=== PATIENT | male | born 1955 ===

== ENCOUNTER 2017-07-18 03:45 | Inpatient (IN) | payer MEDICAID ==
[2017-07-18] MEDS ORDERED: Sodium Chloride 0.9% 1,000 ML IV STA (04:07)
[2017-07-18 04:28] LABS: BASO % 1.6 % (0.0-2.0); EOS % 1.2 % (0.0-4.0); HEMOGLOBIN 8.7 g/dL (12.0-18.0); LYMPH # 0.5 K/uL (1.0-4.3); LYMPH % 32.4 % (20.0-40.0); MEAN CELL VOLUME 87.6 fL (80.0-94.0); MEAN CORPUSCULAR HEMOGLOBIN 30.5 pg (27.0-31.0); MEAN CORPUSCULAR HGB CONC 34.8 g/dL (33.0-37.0); MEAN PLATELET VOLUME 8.2 fL (7.2-11.7); MONO % 1.9 % (0.0-10.0); NEUT # 0.9 K/uL (1.8-7.0); NEUT % 62.9 % (50.0-75.0); NRBC % 0.2 % (0.0-2.0); RBC 2.86 Mil/uL (4.40-5.90); RED CELL DISTRIBUTION WIDTH 15.8 % (11.5-14.5)
[2017-07-18] MEDS ORDERED: Sodium Chloride 0.9% 1,000 ML ONE (04:28)
[2017-07-18] MEDS ORDERED: Morphine 4 MG/ML VIAL ONE ×2 (04:30→08:55)
[2017-07-18 04:33] LABS: WHITE BLOOD COUNT 1.4 K/uL (4.8-10.8)
[2017-07-18 04:36] LABS: INR 1.3; PROTHROMBIN TIME 13.7 SECONDS (9.7-12.2)
[2017-07-18 04:39] LABS: ALB/GLOB RATIO 1.1 (1.0-2.1); ALBUMIN 3.8 g/dL (3.5-5.0); ALT/SGPT 19 U/L (21-72); AST/SGOT 29 U/L (17-59); BLOOD UREA NITROGEN 12 mg/dL (9-20); CALCIUM 7.1 mg/dl (8.6-10.4); GFR AFRICAN-AMERICAN > 60; GFR NON-AFRICAN AMERICAN > 60; LIPASE 147 U/L (23-300)
--- NOTE | 2017-07-18 05:16 | C.PDOC ---
History Of Present Illness 61yo male, with history of metastatic prostate cancer, presents to the ED with complaints of suprapubic pain since last night. Patient follows up with Dr. Recinos and currently is on chemotherapy and radiation. Patient is on a Dilaudid regiment at home and states recently, he \\hs not had any relief of pain with dilaudid use. He denies any associated fever, chills, chest pain, shortness of breath and offers no other medical complaints. PMD: Dr. Recinos Time Seen by Provider: 07/18/17 04:00 Chief Complaint (Nursing): Abdominal Pain History Per: Patient History/Exam Limitations: no limitations Onset/Duration Of Symptoms: Days (1) Current Symptoms Are (Timing): Still Present Severity: Severe Location Of Pain/Discomfort: Suprapubic Quality Of Discomfort: "Pain" Associated Symptoms: denies: Fever, Chills, Nausea, Vomiting, Diarrhea, Chest Pain Additional History Per: Patient Past Medical History Reviewed: Historical Data, Nursing Documentation, Vital Signs Vital Signs: Last Vital Signs Temp 98.6 F 07/18/17 06:46 Pulse 73 07/18/17 06:46 Resp 20 07/18/17 06:46 BP 114/62 07/18/17 06:46 Pulse Ox 97 07/18/17 06:50 - Medical History PMH: Malignancy (metastatic prostate cancer) Surgical History: No Surg Hx Family History: States: No Known Family Hx - Social History Hx Tobacco Use: No Hx Alcohol Use: No Hx Substance Use: No - Immunization History Hx Tetanus Toxoid Vaccination: No Hx Influenza Vaccination: No Hx Pneumococcal Vaccination: No Review Of Systems Except As Marked, All Systems Reviewed And Found Negative. Constitutional: Negative for: Fever, Chills Cardiovascular: Negative for: Chest Pain Respiratory: Negative for: Shortness of Breath Gastrointestinal: Positive for: Abdominal Pain. Negative for: Nausea, Vomiting , Diarrhea Neurological: Negative for: Weakness Physical Exam - Physical Exam Appears: Non-toxic, Other (uncomfortable) Skin: Warm, Dry, Pale Head: Atraumatic, Normacephalic Eye(s): bilateral: Normal Inspection Neck: Normal ROM, Supple Chest: Symmetrical Cardiovascular: Rhythm Regular, No Murmur Respiratory: Normal Breath Sounds, No Wheezing Gastrointestinal/Abdominal: Soft, Tenderness (mild suprapubic tenderness) Extremity: Normal ROM Neurological/Psych: Oriented x3 ED Course And Treatment - Laboratory Results Result Diagrams: 07/18/17 04:25 07/18/17 04:25 O2 Sat by Pulse Oximetry: 97 (RA) Pulse Ox Interpretation: Normal - CT Scan/US CT Abdomen and Pelvis w/ IV Contrast Other Rad Studies (CT/US): Read By Radiologist, Radiology Report Reviewed CT/US Interpretation: EXAM: CT Abdomen and Pelvis With Intravenous Contrast. EXAM DATE/TIME: 07/18/2017 4:10 AM. CLINICAL HISTORY: 61 years old, male; Pain ; Abdominal pain; Additional info: Abd pain, h/o prosate cancer. TECHNIQUE: Axial computed tomography images of the abdomen and pelvis with intravenous contrast. All CT. scans at this facility use one or more dose reduction techniques, viz.: automated exposure control;. ma/kV adjustment per patient size (including targeted exams where dose is matched to indication; i.e. head) ; or iterative reconstruction technique. Coronal and sagittal reformatted images were created and reviewed. CONTRAST: 100 mL of [id number] administered intravenously. COMPARISON: No relevant prior studies available. FINDINGS: There are tiny scattered punctate nodules within the lungs all of which measure less than 4. mm.Follow up based on Chrisotpher criteria. There are lobulated soft tissue masses extending along the left aortic border without intervening fat. plane identified. I suspect metastatic lymphadenopathy given history of prostate cancer. The. lymphadenopathy measures 4 x 4.5 cm in maximal axial dimensions on image 74. Soft tissue. surrounds the left renal artery. There are numerous enlarged lymph nodes between the aorta and. IVC. The liver, spleen, pancreas, kidneys, gallbladder are normal. Sigmoid diverticulosis. A normal appendix is identified series 3 axial images 96 - 113. There are innumerable blastic lesions throughout the entire vertebral column as well the pelvic. bones and multiple ribs. Findings consistent with metastatic disease in the patient's known prostate. cancer. There is air within the musculature of the left buttock that I suspect is secondary to injection. Clinical. correlation recommended. I see no signs to suggest infectious etiology. IMPRESSION: Extensive metastatic disease to the osseous structures presumably from the patient's known prostate. cancer. Extensive periaortic lymphadenopathy as described above presumably also representing metastatic. disease from the patient's reported prostate cancer. Without prior studies, I cannot determine whether this represents new or chronic findings. Progress Note: Labs, IV Fluids, morphine and zofran ODT ordered. 0425 Labs reviewed, and significant for leukopenia and anemia. 0649 CT results reviewed. Call placed to Dr. Recinos, and currently pending call back. Disposition - Disposition Disposition Time: 07:02 Condition: FAIR Forms: [facility] (Georgian) - Clinical Impression Clinical Impression: Abdominal pain - PA / NETWORK RELATIONS CONSULTANT / Resident Statement MD/DO has reviewed & agrees with the documentation as recorded. - Scribe Statement The provider has reviewed the documentation as recorded by the Scribe (Luba Gates) Provider Attestation: All medical record entries made by the Scribe were at my direction and personally dictated by me. I have reviewed the chart and agree that the record accurately reflects my personal performance of the history, physical exam, medical decision making, and the department course for this patient. I have also personally directed, reviewed, and agree with the discharge instructions and disposition. Physician Patient Turnover Patient Signed Over To: Christine Gibson Handoff Comments: Pending dispo, call back and dispo
[2017-07-18] MEDS ORDERED: Iodixanol 320 mg/ml 150 ml Bottle IV ONE (05:29)
--- NOTE | 2017-07-18 06:40 | CT ---
EXAM: CT Abdomen and Pelvis With Intravenous Contrast EXAM DATE/TIME: 07/18/2017 4:10 AM CLINICAL HISTORY: 61 years old, male; Pain; Abdominal pain; Additional info: Abd pain, h/o prosate cancer TECHNIQUE: Axial computed tomography images of the abdomen and pelvis with intravenous contrast. All CT scans at this facility use one or more dose reduction techniques, viz.: automated exposure control; ma/kV adjustment per patient size (including targeted exams where dose is matched to indication; i.e. head); or iterative reconstruction technique. Coronal and sagittal reformatted images were created and reviewed. CONTRAST: 100 mL of administered intravenously. COMPARISON: No relevant prior studies available. FINDINGS: There are tiny scattered punctate nodules within the lungs all of which measure less than 4 mm.Follow up based on Christopher criteria. There are lobulated soft tissue masses extending along the left aortic border without intervening fat plane identified. I suspect metastatic lymphadenopathy given history of prostate cancer. The lymphadenopathy measures 4 x 4.5 cm in maximal axial dimensions on image 74. Soft tissue surrounds the left renal artery. There are numerous enlarged lymph nodes between the aorta and IVC. The liver, spleen, pancreas, kidneys, gallbladder are normal. Sigmoid diverticulosis. A normal appendix is identified series 3 axial images 96 - 113. There are innumerable blastic lesions throughout the entire vertebral column as well the pelvic bones and multiple ribs. Findings consistent with metastatic disease in the patient's known prostate cancer. There is air within the musculature of the left buttock that I suspect is secondary to injection. Clinical correlation recommended. I see no signs to suggest infectious etiology. IMPRESSION: Extensive metastatic disease to the osseous structures presumably from the patient's known prostate cancer. Extensive periaortic lymphadenopathy as described above presumably also representing metastatic disease from the patient's reported prostate cancer. Without prior studies, I cannot determine whether this represents new or chronic findings.
[2017-07-18 06:55] LABS: URINE BILIRUBIN NEGATIVE (NEGATIVE); URINE BLOOD NEGATIVE (NEGATIVE); URINE CLARITY Clear (Clear); URINE COLOR Straw (YELLOW); URINE GLUCOSE (UA) NORMAL (Normal); URINE LEUKOCYTE ESTERASE NEG Leu/uL (Negative); URINE PROTEIN NEGATIVE (NEGATIVE); URINE UROBILINOGEN NORMAL mg/dL (0.2-1.0)
[2017-07-18] MEDS: Sodium Chloride 0.9% 1,000 ML IV SCH ×2 (09:01→18:34)
--- NOTE | 2017-07-18 15:44 | CP.PCM.HP ---
Past Patient History - Past Social History Smoking Status: Never Smoked - GENITOURINARY/GYNECOLOGICAL Hx Prostate Cancer: Yes - PSYCHIATRIC Hx Substance Use: No Meds Allergies/Adverse Reactions: Allergies Allergy/AdvReac Type Severity Reaction Status Date / Time No Known Allergies Allergy Unverified 07/18/17 03:58 Physical Exam - Constitutional Appears: Well - Head Exam Head Exam: ATRAUMATIC, NORMAL INSPECTION, NORMOCEPHALIC - Eye Exam Eye Exam: EOMI, Normal appearance, PERRL Pupil Exam: NORMAL ACCOMODATION, PERRL - ENT Exam ENT Exam: Mucous Membranes Moist, Normal Exam - Neck Exam Neck exam: Positive for: Normal Inspection - Respiratory Exam Respiratory Exam: Decreased Breath Sounds - Cardiovascular Exam Cardiovascular Exam: REGULAR RHYTHM, +S1, +S2 - GI/Abdominal Exam GI & Abdominal Exam: Diminished Bowel Sounds, Soft - Rectal Exam Rectal Exam: Deferred Results - Vital Signs Recent Vital Signs: Last Vital Signs Temp 98.6 F 07/18/17 06:46 Pulse 81 07/18/17 13:51 Resp 16 07/18/17 13:51 BP 133/67 07/18/17 13:51 Pulse Ox 99 07/18/17 13:51 - Labs Result Diagrams: 07/18/17 04:25 07/18/17 04:25 Labs: Laboratory Results - last 24 hr 07/18/17 07/18/17 07/18/17 04:25 04:25 04:25 WBC 1.4 L* D RBC 2.86 L Hgb 8.7 L D Hct 25.1 L MCV 87.6 D MCH 30.5 MCHC 34.8 RDW 15.8 H Plt Count 75 L D MPV 8.2 Neut % (Auto) 62.9 Lymph % (Auto) 32.4 [place] % (Auto) 1.9 Eos % (Auto) 1.2 Baso % (Auto) 1.6 Neut # (Auto) 0.9 L Lymph # (Auto) 0.5 L [place] # (Auto) 0.0 Eos # (Auto) 0.0 Baso # (Auto) 0.0 PT 13.7 H INR 1.3 APTT 28 Sodium 134 Potassium 4.1 Chloride 102 Carbon Dioxide 20 L Anion Gap 16 BUN 12 Creatinine 0.6 L Est GFR ( Amer) > 60 Est GFR (Non-Af Amer) > 60 Random Glucose 107 Calcium 7.1 L Total Bilirubin 1.0 AST 29 ALT 19 L D Alkaline Phosphatase 402 H Total Protein 7.2 Albumin 3.8 Globulin 3.3 Albumin/Globulin Ratio 1.1 Lipase 147 Urine Color Urine Clarity Urine pH Ur Specific [place] Urine Protein Urine Glucose (UA) Urine Ketones Urine Blood Urine Nitrate Urine Bilirubin Urine Urobilinogen Ur Leukocyte Esterase Urine RBC (Auto) 07/18/17 06:50 WBC RBC Hgb Hct MCV MCH MCHC RDW Plt Count MPV Neut % (Auto) Lymph % (Auto) [place] % (Auto) Eos % (Auto) Baso % (Auto) Neut # (Auto) Lymph # (Auto) [place] # (Auto) Eos # (Auto) Baso # (Auto) PT INR APTT Sodium Potassium Chloride Carbon Dioxide Anion Gap BUN Creatinine Est GFR ( Amer) Est GFR (Non-Af Amer) Random Glucose Calcium Total Bilirubin AST ALT Alkaline Phosphatase Total Protein Albumin Globulin Albumin/Globulin Ratio Lipase Urine Color Straw Urine Clarity Clear Urine pH 6.0 Ur Specific [place] 1.023 Urine Protein Negative Urine Glucose (UA) Normal Urine Ketones Negative Urine Blood Negative Urine Nitrate Negative Urine Bilirubin Negative Urine Urobilinogen Normal Ur Leukocyte Esterase Neg Urine RBC (Auto) < 1
[2017-07-18] MEDS ORDERED: Patient's Own Medication - Tablet/Capusle PO SCH (18:00)
[2017-07-18] MEDS: Sucralfate 1 gm/10 ml Oral Susp UD PO SCH ×2 (18:27→21:01)
[2017-07-18] MEDS: Ciprofloxacin 400mg/200ml D5W 400 MG/200 ML BAG IVPB SCH (18:28)
[2017-07-18] MEDS: Morphine 4 MG/ML VIAL IVP PRN (21:00)
[2017-07-18] MEDS: Docusate-Senna 50 mg-8.6 mg Tab PO SCH (21:01)
--- NOTE | 2017-07-18 23:28 | CP.PCM.CON ---
History of Present Illness - History of Present Illness History of Present Illness: 61 year old male with a history of stage IV prostate cancer with lymph node and metastasis on radiation and total androgen deprivation admitted with abdominal pain and pancytopenia. The patient has been on total androgen deprivation therapy and palliative radiotherapy to the bone. He notes to improvement in his bone pain but has been experiencing more abdominal pain since starting radiation. He denies fevers and chills. He has no abnormal bleeding and bruising. Past medical history: Stage IV prostate cancer Past surgical history: None Family history: Denies hematologic and oncologic problems Social history: Social alcohol. Allergies: NKA Review of systems: All remaining review of systems including HEENT, cardiovascular, respiratory, gastrointestinal, genitourinary, musculoskeletal, dermatologic, neurologic, and psychiatric are negative unless mentioned in the HPI. Past Patient History - Past Social History Smoking Status: Never Smoked - MUSCULOSKELETAL/RHEUMATOLOGICAL Hx Falls: No - GENITOURINARY/GYNECOLOGICAL Hx Prostate Cancer: Yes - PSYCHIATRIC Hx Substance Use: No Meds Allergies/Adverse Reactions: Allergies Allergy/AdvReac Type Severity Reaction Status Date / Time No Known Allergies Allergy Unverified 07/18/17 03:58 - Medications Medications: Current Medications Home Med (Patient's Own Medication) 1 tab PO BID [facility] Sodium Chloride (Sodium Chloride 0.9%) 1,000 mls @ 100 mls/hr IV .Q10H [facility] Last Admin: 07/18/17 18:34 Dose: Not Given Ciprofloxacin (Cipro 400mg/200ml Dsw) 400 mg in 200 mls @ 133 mls/hr IVPB Q12H RENAN PRN Reason: Protocol Last Admin: 07/18/17 18:28 Dose: 133 mls/hr Morphine Sulfate (Morphine) 4 mg IVP Q6 PRN PRN Reason: Pain, moderate (4-7) Last Admin: 07/18/17 21:00 Dose: 4 mg Pantoprazole Sodium (Protonix Ec Tab) 40 mg PO DAILY [facility] Senna/Docusate Sodium (Senokot S 50 Mg-8.6 Mg) 2 tab PO HS [facility] Last Admin: 07/18/17 21:01 Dose: 2 tab Sucralfate (Carafate Oral Susp) 1 gm PO QID [facility] Last Admin: 07/18/17 21:01 Dose: 1 gm Physical Exam - Head Exam Head Exam: ATRAUMATIC - Eye Exam Eye Exam: Normal appearance - ENT Exam ENT Exam: Mucous Membranes Dry - Respiratory Exam Respiratory Exam: NORMAL BREATHING PATTERN - Cardiovascular Exam Cardiovascular Exam: +S1, +S2 - GI/Abdominal Exam GI & Abdominal Exam: Normal Bowel Sounds - Extremities Exam Extremities exam: Positive for: normal inspection - Neurological Exam Neurological exam: Oriented x3 - Psychiatric Exam Psychiatric exam: Normal Affect, Normal Mood - Skin Skin Exam: Warm Results - Vital Signs Recent Vital Signs: Last Vital Signs Temp 97.8 F 07/18/17 16:15 Pulse 79 07/18/17 16:15 Resp 20 07/18/17 16:15 BP 130/76 07/18/17 16:15 Pulse Ox 99 07/18/17 16:15 - Labs Result Diagrams: 07/19/17 08:39 07/18/17 04:25 Labs: Laboratory Results - last 24 hr 07/18/17 07/18/17 07/18/17 04:25 04:25 04:25 WBC 1.4 L* D RBC 2.86 L Hgb 8.7 L D Hct 25.1 L MCV 87.6 D MCH 30.5 MCHC 34.8 RDW 15.8 H Plt Count 75 L D MPV 8.2 Neut % (Auto) 62.9 Lymph % (Auto) 32.4 [place] % (Auto) 1.9 Eos % (Auto) 1.2 Baso % (Auto) 1.6 Neut # (Auto) 0.9 L Lymph # (Auto) 0.5 L [place] # (Auto) 0.0 Eos # (Auto) 0.0 Baso # (Auto) 0.0 PT 13.7 H INR 1.3 APTT 28 Sodium 134 Potassium 4.1 Chloride 102 Carbon Dioxide 20 L Anion Gap 16 BUN 12 Creatinine 0.6 L Est GFR ( Amer) > 60 Est GFR (Non-Af Amer) > 60 Random Glucose 107 Calcium 7.1 L Total Bilirubin 1.0 AST 29 ALT 19 L D Alkaline Phosphatase 402 H Total Protein 7.2 Albumin 3.8 Globulin 3.3 Albumin/Globulin Ratio 1.1 Lipase 147 Urine Color Urine Clarity Urine pH Ur Specific [place] Urine Protein Urine Glucose (UA) Urine Ketones Urine Blood Urine Nitrate Urine Bilirubin Urine Urobilinogen Ur Leukocyte Esterase Urine RBC (Auto) 07/18/17 06:50 WBC RBC Hgb Hct MCV MCH MCHC RDW Plt Count MPV Neut % (Auto) Lymph % (Auto) [place] % (Auto) Eos % (Auto) Baso % (Auto) Neut # (Auto) Lymph # (Auto) [place] # (Auto) Eos # (Auto) Baso # (Auto) PT INR APTT Sodium Potassium Chloride Carbon Dioxide Anion Gap BUN Creatinine Est GFR ( Amer) Est GFR (Non-Af Amer) Random Glucose Calcium Total Bilirubin AST ALT Alkaline Phosphatase Total Protein Albumin Globulin Albumin/Globulin Ratio Lipase Urine Color Straw Urine Clarity Clear Urine pH 6.0 Ur Specific [place] 1.023 Urine Protein Negative Urine Glucose (UA) Normal Urine Ketones Negative Urine Blood Negative Urine Nitrate Negative Urine Bilirubin Negative Urine Urobilinogen Normal Ur Leukocyte Esterase Neg Urine RBC (Auto) < 1 Assessment & Plan (1) Pancytopenia Assessment and Plan: multifactorial bone metastasis, radiation treatment mild neutropenia, no growth factor and transfusion indication at this time. Status: Acute (2) Prostate cancer Assessment and Plan: bone and lymph node metastasis on androgen deprivation therapy and palliative radiotherapy outpatient treatment Thank you for this interesting consult. Status: Acute
[2017-07-19] MEDS: Sodium Chloride 0.9% 1,000 ML IV SCH ×3 (02:08→14:00)
[2017-07-19] MEDS: Morphine 4 MG/ML VIAL IVP PRN (02:19)
[2017-07-19] MEDS: Ciprofloxacin 400mg/200ml D5W 400 MG/200 ML BAG IVPB SCH ×2 (06:27→18:46)
[2017-07-19 08:45] LABS: EOS % 1.7 % (0.0-4.0); HEMOGLOBIN 9.2 g/dL (12.0-18.0); LYMPH # 0.4 K/uL (1.0-4.3); LYMPH % 33.3 % (20.0-40.0); MEAN CELL VOLUME 87.2 fL (80.0-94.0); MEAN CORPUSCULAR HEMOGLOBIN 30.6 pg (27.0-31.0); MEAN CORPUSCULAR HGB CONC 35.1 g/dL (33.0-37.0); MEAN PLATELET VOLUME 8.1 fL (7.2-11.7); MONO % 1.4 % (0.0-10.0); NEUT # 0.8 K/uL (1.8-7.0); NEUT % 62.6 % (50.0-75.0); NRBC % 0.1 % (0.0-2.0); RBC 2.99 Mil/uL (4.40-5.90); RED CELL DISTRIBUTION WIDTH 15.7 % (11.5-14.5)
[2017-07-19 08:54] LABS: WHITE BLOOD COUNT 1.2 K/uL (4.8-10.8)
[2017-07-19] MEDS: Pantoprazole 40 mg EC Tab PO SCH (10:08)
[2017-07-19] MEDS: Sucralfate 1 gm/10 ml Oral Susp UD PO SCH ×4 (10:08→21:57)
[2017-07-19] MEDS ORDERED: HYDROmorphone 0.5 mg/0.5 ml ISec IVP STA (11:22)
[2017-07-19] MEDS ORDERED: HYDROmorphone 0.5 mg/0.5 ml ISec IVP PRN (12:48)
[2017-07-19] MEDS: HYDROmorphone 1 mg/ml ISec IVP PRN ×3 (14:34→23:01)
--- NOTE | 2017-07-19 18:09 | CP.PCM.PN ---
Subjective - Date & Time of Evaluation Date of Evaluation: 07/19/17 Time of Evaluation: 09:40 - Subjective Subjective: clinically same Objective - Vital Signs/Intake and Output Vital Signs (last 24 hours): Temp Pulse Resp BP Pulse Ox 98.1 F 76 20 129/77 97 07/19/17 15:53 07/19/17 15:53 07/19/17 15:53 07/19/17 15:53 07/19/17 15:53 Intake and Output: 07/19/17 07/19/17 06:59 18:59 Intake Total 760 Balance 760 - Medications Medications: Current Medications Home Med (Patient's Own Medication) 1 tab PO BID [facility] Hydromorphone HCl (Dilaudid) 2 mg IVP Q3 PRN PRN Reason: Pain, severe (8-10) Last Admin: 07/19/17 14:34 Dose: 2 mg Sodium Chloride (Sodium Chloride 0.9%) 1,000 mls @ 100 mls/hr IV .Q10H [facility] Last Admin: 07/19/17 14:00 Dose: 100 mls/hr Ciprofloxacin (Cipro 400mg/200ml Dsw) 400 mg in 200 mls @ 133 mls/hr IVPB Q12H RENAN PRN Reason: Protocol Last Admin: 07/19/17 06:27 Dose: 133 mls/hr Pantoprazole Sodium (Protonix Ec Tab) 40 mg PO DAILY [facility] Last Admin: 07/19/17 10:08 Dose: 40 mg Senna/Docusate Sodium (Senokot S 50 Mg-8.6 Mg) 2 tab PO HS [facility] Last Admin: 07/18/17 21:01 Dose: 2 tab Sucralfate (Carafate Oral Susp) 1 gm PO QID [facility] Last Admin: 07/19/17 13:50 Dose: 1 gm - Labs Labs: 07/19/17 08:39 07/18/17 04:25 PT 13.7 SECONDS (9.7-12.2) H 07/18/17 04:25 INR 1.3 07/18/17 04:25 APTT 28 SECONDS (21-34) 07/18/17 04:25 - Constitutional Appears: Well - Head Exam Head Exam: ATRAUMATIC, NORMAL INSPECTION, NORMOCEPHALIC - Eye Exam Eye Exam: EOMI, Normal appearance, PERRL Pupil Exam: NORMAL ACCOMODATION, PERRL - ENT Exam ENT Exam: Mucous Membranes Moist, Normal Exam - Neck Exam Neck Exam: Full ROM, Normal Inspection. absent: Lymphadenopathy - Respiratory Exam Respiratory Exam: Decreased Breath Sounds - Cardiovascular Exam Cardiovascular Exam: REGULAR RHYTHM, +S1, +S2 - GI/Abdominal Exam GI & Abdominal Exam: Soft, Diminished Bowel Sounds - Rectal Exam Rectal Exam: Deferred Assessment and Plan - Assessment and Plan (Free Text) Plan: IV dilaudid Spoke to the daughter at length urology consultations Pain medicine As ordered
[2017-07-19] MEDS: Docusate-Senna 50 mg-8.6 mg Tab PO SCH (21:57)
[2017-07-20] MEDS: Sodium Chloride 0.9% 1,000 ML IV SCH ×4 (01:29→21:18)
[2017-07-20] MEDS: HYDROmorphone 1 mg/ml ISec IVP PRN ×7 (02:56→22:07)
[2017-07-20] MEDS: Ciprofloxacin 400mg/200ml D5W 400 MG/200 ML BAG IVPB SCH ×2 (06:35→17:09)
--- NOTE | 2017-07-20 07:25 | PCM.URO ---
Urology Progress Note - Objective Lab Studies: Reviewed (gu dx: cap gu plans : to be discussed full note to be dictated thanks for gu consult) Lab Results Last 24 Hours: Laboratory Results - last 24 hr 07/19/17 07/19/17 07/19/17 08:39 08:39 08:39 WBC 1.2 L* RBC 2.99 L Hgb 9.2 L Hct 26.1 L MCV 87.2 MCH 30.6 MCHC 35.1 RDW 15.7 H Plt Count 87 L MPV 8.1 Neut % (Auto) 62.6 Lymph % (Auto) 33.3 [place] % (Auto) 1.4 Eos % (Auto) 1.7 Baso % (Auto) 1.0 Neut # (Auto) 0.8 L Lymph # (Auto) 0.4 L [place] # (Auto) 0.0 Eos # (Auto) 0.0 Baso # (Auto) 0.0 Prostate Specific Ag 56.5 H Testosterone Level 16.6 Intake & Output: Intake & Output 07/19/17 07/20/17 07/20/17 18:59 06:59 18:59 Intake Total 760 Balance 760 Intake: Oral 760 Other: # Voids Urine, Voided 3 # Bowel Movements 0 Vital Signs: Vital Signs - 24 hr 07/19/17 07/20/17 15:53 00:35 Temperature 98.1 F 98.3 F Pulse Rate 76 77 Respiratory 20 20 Rate Blood Pressure 129/77 118/73 O2 Sat by Pulse 97 98 Oximetry
[2017-07-20] MEDS: Sucralfate 1 gm/10 ml Oral Susp UD PO SCH ×4 (09:40→21:15)
[2017-07-20] MEDS: Pantoprazole 40 mg EC Tab PO SCH (09:41)
--- NOTE | 2017-07-20 12:44 | CP.PCM.PN ---
Subjective - Date & Time of Evaluation Date of Evaluation: 07/19/17 Time of Evaluation: 17:00 - Subjective Subjective: Feeling better Objective - Vital Signs/Intake and Output Vital Signs (last 24 hours): Temp Pulse Resp BP Pulse Ox 98.7 F 73 20 125/78 97 07/20/17 08:00 07/20/17 08:00 07/20/17 08:00 07/20/17 08:00 07/20/17 08:00 - Medications Medications: Current Medications Home Med (Patient's Own Medication) 1 tab PO BID [facility] Hydromorphone HCl (Dilaudid) 2 mg IVP Q3 PRN PRN Reason: Pain, severe (8-10) Last Admin: 07/20/17 09:41 Dose: 2 mg Sodium Chloride (Sodium Chloride 0.9%) 1,000 mls @ 100 mls/hr IV .Q10H [facility] Last Admin: 07/20/17 01:29 Dose: 100 mls/hr Ciprofloxacin (Cipro 400mg/200ml Dsw) 400 mg in 200 mls @ 133 mls/hr IVPB Q12H RENAN PRN Reason: Protocol Last Admin: 07/20/17 06:35 Dose: 133 mls/hr Pantoprazole Sodium (Protonix Ec Tab) 40 mg PO DAILY [facility] Last Admin: 07/20/17 09:41 Dose: 40 mg Senna/Docusate Sodium (Senokot S 50 Mg-8.6 Mg) 2 tab PO HS [facility] Last Admin: 07/19/17 21:57 Dose: 2 tab Sucralfate (Carafate Oral Susp) 1 gm PO QID [facility] Last Admin: 07/20/17 09:40 Dose: 1 gm - Labs Labs: 07/19/17 08:39 07/18/17 04:25 PT 13.7 SECONDS (9.7-12.2) H 07/18/17 04:25 INR 1.3 07/18/17 04:25 APTT 28 SECONDS (21-34) 07/18/17 04:25 - Head Exam Head Exam: ATRAUMATIC - Eye Exam Eye Exam: Normal appearance - ENT Exam ENT Exam: Mucous Membranes Dry - Respiratory Exam Respiratory Exam: NORMAL BREATHING PATTERN - Cardiovascular Exam Cardiovascular Exam: +S1, +S2 - GI/Abdominal Exam GI & Abdominal Exam: Normal Bowel Sounds Assessment and Plan (1) Pancytopenia Assessment & Plan: secondary to bone metastasis and radiation no growth factor and transfusion indication Status: Acute (2) Prostate cancer Assessment & Plan: bone and lymph node metastasis on androgen deprivation and palliative radiotherapy outpatient treatment Status: Acute
--- NOTE | 2017-07-20 13:51 | CP.PCM.PN ---
Subjective - Date & Time of Evaluation Date of Evaluation: 07/20/17 Time of Evaluation: 09:40 - Subjective Subjective: clinically same Objective - Vital Signs/Intake and Output Vital Signs (last 24 hours): Temp Pulse Resp BP Pulse Ox 98.7 F 73 20 125/78 97 07/20/17 08:00 07/20/17 08:00 07/20/17 08:00 07/20/17 08:00 07/20/17 08:00 - Medications Medications: Current Medications Home Med (Patient's Own Medication) 1 tab PO BID [facility] Hydromorphone HCl (Dilaudid) 2 mg IVP Q3 PRN PRN Reason: Pain, severe (8-10) Last Admin: 07/20/17 12:44 Dose: 2 mg Sodium Chloride (Sodium Chloride 0.9%) 1,000 mls @ 100 mls/hr IV .Q10H [facility] Last Admin: 07/20/17 12:50 Dose: 100 mls/hr Ciprofloxacin (Cipro 400mg/200ml Dsw) 400 mg in 200 mls @ 133 mls/hr IVPB Q12H RENAN PRN Reason: Protocol Last Admin: 07/20/17 06:35 Dose: 133 mls/hr Pantoprazole Sodium (Protonix Ec Tab) 40 mg PO DAILY [facility] Last Admin: 07/20/17 09:41 Dose: 40 mg Senna/Docusate Sodium (Senokot S 50 Mg-8.6 Mg) 2 tab PO HS [facility] Last Admin: 07/19/17 21:57 Dose: 2 tab Sucralfate (Carafate Oral Susp) 1 gm PO QID [facility] Last Admin: 07/20/17 09:40 Dose: 1 gm - Labs Labs: 07/19/17 08:39 07/18/17 04:25 PT 13.7 SECONDS (9.7-12.2) H 07/18/17 04:25 INR 1.3 07/18/17 04:25 APTT 28 SECONDS (21-34) 07/18/17 04:25 - Constitutional Appears: Well - Head Exam Head Exam: ATRAUMATIC, NORMAL INSPECTION, NORMOCEPHALIC - Eye Exam Eye Exam: EOMI, Normal appearance, PERRL Pupil Exam: NORMAL ACCOMODATION, PERRL - ENT Exam ENT Exam: Mucous Membranes Moist, Normal Exam - Neck Exam Neck Exam: Full ROM, Normal Inspection. absent: Lymphadenopathy - Respiratory Exam Respiratory Exam: Decreased Breath Sounds - Cardiovascular Exam Cardiovascular Exam: REGULAR RHYTHM, +S1, +S2 - GI/Abdominal Exam GI & Abdominal Exam: Soft, Diminished Bowel Sounds - Rectal Exam Rectal Exam: Deferred Assessment and Plan - Assessment and Plan (Free Text) Plan: Status post urology WBC is very low 1.2 Follow-up with Dr. milner Follow-up with the urologist and Workup under progress IV Cipro Septic workup
[2017-07-20 14:04] LABS: URINE BILIRUBIN NEGATIVE (NEGATIVE); URINE BLOOD NEGATIVE (NEGATIVE); URINE CLARITY Clear (Clear); URINE COLOR Yellow (YELLOW); URINE GLUCOSE (UA) NORMAL (Normal); URINE LEUKOCYTE ESTERASE NEG Leu/uL (Negative); URINE PROTEIN NEGATIVE (NEGATIVE)
--- NOTE | 2017-07-20 19:32 | CON ---
DATE: 07/20/2017 REASON FOR CONSULTATION: Metastatic prostate cancer. Mr. Ramirez is a very pleasant young gentleman, 61 years old, who is in the hospital under the care of Dr. Michael Pavon and also being consulted with Dr. Recinos. He is felt to be neutropenic, his white count is noted. The patient was admitted with pain. He is pancytopenic actually if we look at his labs. See below. From urology standpoint, he is noted to have metastatic prostate cancer. Urology consulted for further recommendation. PAST MEDICAL AND SURGICAL HISTORY: As listed in the chart. REVIEW OF SYSTEMS: As listed above. PHYSICAL EXAMINATION: GENERAL: A well-nourished male in no apparent distress. VITAL SIGNS: As noted. LABORATORY DATA: The labs are noted. BUN and creatinine . The metastatic cancer on imaging noted. From urology standpoint, diagnoses is metastatic prostate cancer with multiple metastatic sites, with pain. From urology standpoint, the plan is as follows: I will defer to Dr. Recinos for further recommendations. We will discuss options from urology standpoint. Thank you for the urology consult. Girma Tolbert MD
[2017-07-20] MEDS: Docusate-Senna 50 mg-8.6 mg Tab PO SCH (21:16)
[2017-07-21] MEDS: HYDROmorphone 1 mg/ml ISec IVP PRN ×5 (02:10→19:51)
[2017-07-21] MEDS: Ciprofloxacin 400mg/200ml D5W 400 MG/200 ML BAG IVPB SCH ×2 (05:33→17:12)
[2017-07-21] MEDS: Sodium Chloride 0.9% 1,000 ML IV SCH (07:00)
[2017-07-21] MEDS: Enoxaparin 40 mg Syringe SC SCH ×2 (09:14→09:48)
[2017-07-21] MEDS: Sucralfate 1 gm/10 ml Oral Susp UD PO SCH ×4 (09:14→21:16)
[2017-07-21] MEDS: Pantoprazole 40 mg EC Tab PO SCH (09:14)
--- NOTE | 2017-07-21 10:28 | PCM.URO ---
Urology Progress Note - General General: Tolerating Diet - Subjective Abdominal Pain: Yes Flank Pain: No Voiding Well: Yes Hematuria: No Frequency: Yes Chest Pain: No Fever & Chills: No - Objective Lab Studies: Reviewed Lab Results Last 24 Hours: Laboratory Results - last 24 hr 07/20/17 13:48 Urine Color Yellow Urine Clarity Clear Urine pH 6.0 Ur Specific [place] 1.006 Urine Protein Negative Urine Glucose (UA) Normal Urine Ketones Negative Urine Blood Negative Urine Nitrate Negative Urine Bilirubin Negative Urine Urobilinogen 4.0 Ur Leukocyte Esterase Neg Urine WBC (Auto) 1 Urine RBC (Auto) 1 Intake & Output: Intake & Output 07/20/17 07/21/17 07/21/17 18:59 06:59 18:59 Intake Total 1160 2640 Output Total 1300 Balance 1160 1340 Intake: Intake, IV Amount 800 1600 Left Antecubital 800 1600 Oral 360 1040 Output: Urine 1300 Urine, Voided 1300 Other: # Voids Urine, Voided 2 1 # Bowel Movements 0 Vital Signs: Vital Signs - 24 hr 07/20/17 07/21/17 07/21/17 15:00 00:03 02:10 Temperature 98.5 F 98.2 F Pulse Rate 77 88 96 H Respiratory 20 20 20 Rate Blood Pressure 119/72 153/81 H 145/83 O2 Sat by Pulse 97 97 Oximetry 07/21/17 07/21/17 05:30 07:00 Temperature 98.5 F Pulse Rate 90 76 Respiratory 20 Rate Blood Pressure 141/74 129/77 O2 Sat by Pulse 98 Oximetry - Physical Exam Abdominal Exam: Soft, Non-Tender, Non-Distended Back: No CVA Tenderness - Plan Additional Information: IMP: Prostate cancer, with bone and Lymph node metastases. Serum Testosterone pending - Date & Time of Note Date: 07/21/17 Time: 10:28
--- NOTE | 2017-07-21 15:16 | CP.PCM.PN ---
Subjective - Date & Time of Evaluation Date of Evaluation: 07/21/17 Time of Evaluation: 09:20 - Subjective Subjective: clinically same Objective - Vital Signs/Intake and Output Vital Signs (last 24 hours): Temp Pulse Resp BP Pulse Ox 98.5 F 76 20 129/77 98 07/21/17 07:00 07/21/17 07:00 07/21/17 07:00 07/21/17 07:00 07/21/17 07:00 Intake and Output: 07/21/17 07/21/17 06:59 18:59 Intake Total 2640 1280 Output Total 1300 Balance 1340 1280 - Medications Medications: Current Medications Enoxaparin Sodium (Lovenox) 40 mg SC DAILY [facility] Last Admin: 07/21/17 09:48 Dose: 40 mg Home Med (Patient's Own Medication) 1 tab PO BID [facility] Hydromorphone HCl (Dilaudid) 2 mg IVP Q3 PRN PRN Reason: Pain, severe (8-10) Last Admin: 07/21/17 14:59 Dose: 2 mg Ciprofloxacin (Cipro 400mg/200ml Dsw) 400 mg in 200 mls @ 133 mls/hr IVPB Q12H RENAN PRN Reason: Protocol Last Admin: 07/21/17 05:33 Dose: 133 mls/hr Pantoprazole Sodium (Protonix Ec Tab) 40 mg PO DAILY [facility] Last Admin: 07/21/17 09:14 Dose: 40 mg Senna/Docusate Sodium (Senokot S 50 Mg-8.6 Mg) 2 tab PO HS [facility] Last Admin: 07/20/17 21:16 Dose: 2 tab Sucralfate (Carafate Oral Susp) 1 gm PO QID [facility] Last Admin: 07/21/17 13:21 Dose: 1 gm - Labs Labs: 07/19/17 08:39 07/18/17 04:25 PT 13.7 SECONDS (9.7-12.2) H 07/18/17 04:25 INR 1.3 07/18/17 04:25 APTT 28 SECONDS (21-34) 07/18/17 04:25 - Constitutional Appears: Well - Head Exam Head Exam: ATRAUMATIC, NORMAL INSPECTION, NORMOCEPHALIC - Eye Exam Eye Exam: EOMI, Normal appearance, PERRL Pupil Exam: NORMAL ACCOMODATION, PERRL - ENT Exam ENT Exam: Mucous Membranes Moist, Normal Exam - Neck Exam Neck Exam: Full ROM, Normal Inspection. absent: Lymphadenopathy - Respiratory Exam Respiratory Exam: Decreased Breath Sounds - Cardiovascular Exam Cardiovascular Exam: REGULAR RHYTHM, +S1, +S2 - GI/Abdominal Exam GI & Abdominal Exam: Soft, Diminished Bowel Sounds - Rectal Exam Rectal Exam: Deferred
--- NOTE | 2017-07-21 19:14 | CP.PCM.PN ---
Subjective - Date & Time of Evaluation Date of Evaluation: 07/21/17 Time of Evaluation: 13:00 - Subjective Subjective: Feeling better. Objective - Vital Signs/Intake and Output Vital Signs (last 24 hours): Temp Pulse Resp BP Pulse Ox 98.7 F 101 H 20 145/61 96 07/21/17 15:39 07/21/17 15:39 07/21/17 15:39 07/21/17 15:39 07/21/17 15:39 Intake and Output: 07/21/17 07/22/17 18:59 06:59 Intake Total 1280 Balance 1280 - Medications Medications: Current Medications Enoxaparin Sodium (Lovenox) 40 mg SC DAILY [facility] Last Admin: 07/21/17 09:48 Dose: 40 mg Hydromorphone HCl (Dilaudid) 2 mg IVP Q3 PRN PRN Reason: Pain, severe (8-10) Last Admin: 07/21/17 14:59 Dose: 2 mg Ciprofloxacin (Cipro 400mg/200ml Dsw) 400 mg in 200 mls @ 133 mls/hr IVPB Q12H RENAN PRN Reason: Protocol Last Admin: 07/21/17 17:12 Dose: 133 mls/hr Lactulose (Enulose) 20 gm PO HS [facility] Pantoprazole Sodium (Protonix Ec Tab) 40 mg PO DAILY [facility] Last Admin: 07/21/17 09:14 Dose: 40 mg Senna/Docusate Sodium (Senokot S 50 Mg-8.6 Mg) 2 tab PO HS [facility] Last Admin: 07/20/17 21:16 Dose: 2 tab Sucralfate (Carafate Oral Susp) 1 gm PO QID [facility] Last Admin: 07/21/17 17:11 Dose: 1 gm - Labs Labs: 07/19/17 08:39 07/18/17 04:25 PT 13.7 SECONDS (9.7-12.2) H 07/18/17 04:25 INR 1.3 07/18/17 04:25 APTT 28 SECONDS (21-34) 07/18/17 04:25 - Head Exam Head Exam: ATRAUMATIC - Eye Exam Eye Exam: Normal appearance - ENT Exam ENT Exam: Mucous Membranes Dry - Respiratory Exam Respiratory Exam: NORMAL BREATHING PATTERN - Cardiovascular Exam Cardiovascular Exam: +S1, +S2 - GI/Abdominal Exam GI & Abdominal Exam: Normal Bowel Sounds - Extremities Exam Extremities Exam: Normal Inspection Assessment and Plan (1) Pancytopenia Assessment & Plan: bone metastasis, radiotherapy no current indication for growth factor/transfusion support Status: Acute (2) Prostate cancer Assessment & Plan: stage IV ? castrate resistant on androgen deprivation, palliative radiotherapy to symptomatic bone lesions to start Xtandi after radiation as outpatient. Status: Acute
[2017-07-21] MEDS: Docusate-Senna 50 mg-8.6 mg Tab PO SCH (21:16)
[2017-07-22] MEDS: HYDROmorphone 1 mg/ml ISec IVP PRN ×5 (00:12→20:26)
[2017-07-22] MEDS: Ciprofloxacin 400mg/200ml D5W 400 MG/200 ML BAG IVPB SCH ×2 (05:40→17:43)
[2017-07-22 07:53] LABS: EOS % 1.9 % (0.0-4.0); HEMOGLOBIN 7.5 g/dL (12.0-18.0); LYMPH # 0.3 K/uL (1.0-4.3); LYMPH % 39.1 % (20.0-40.0); MEAN CORPUSCULAR HEMOGLOBIN 30.9 pg (27.0-31.0); MEAN CORPUSCULAR HGB CONC 35.1 g/dL (33.0-37.0); MEAN PLATELET VOLUME 7.6 fL (7.2-11.7); MONO % 1.8 % (0.0-10.0); NEUT # 0.4 K/uL (1.8-7.0); NEUT % 56.2 % (50.0-75.0); NRBC % 0.5 % (0.0-2.0); RBC 2.41 Mil/uL (4.40-5.90); RED CELL DISTRIBUTION WIDTH 15.9 % (11.5-14.5)
[2017-07-22 08:15] LABS: WHITE BLOOD COUNT 0.8 K/uL (4.8-10.8)
[2017-07-22 08:32] LABS: ALB/GLOB RATIO 1.1 (1.0-2.1); ALBUMIN 3.5 g/dL (3.5-5.0); ALT/SGPT 20 U/L (21-72); AST/SGOT 30 U/L (17-59); BLOOD UREA NITROGEN 4 mg/dL (9-20); CALCIUM 7.3 mg/dl (8.6-10.4); GFR AFRICAN-AMERICAN > 60; GFR NON-AFRICAN AMERICAN > 60
[2017-07-22] MEDS: Sucralfate 1 gm/10 ml Oral Susp UD PO SCH ×4 (09:22→21:11)
[2017-07-22] MEDS: Pantoprazole 40 mg EC Tab PO SCH (09:22)
[2017-07-22] MEDS: Enoxaparin 40 mg Syringe SC SCH (09:24)
--- NOTE | 2017-07-22 13:07 | CP.PCM.PN ---
Subjective - Date & Time of Evaluation Date of Evaluation: 07/22/17 Time of Evaluation: 12:45 - Subjective Subjective: No complaints. Objective - Vital Signs/Intake and Output Vital Signs (last 24 hours): Temp Pulse Resp BP Pulse Ox 98.7 F 77 20 127/79 97 07/22/17 07:00 07/22/17 07:00 07/22/17 07:00 07/22/17 07:00 07/22/17 07:00 Intake and Output: 07/22/17 07/22/17 06:59 18:59 Intake Total 1000 Balance 1000 - Medications Medications: Current Medications Enoxaparin Sodium (Lovenox) 40 mg SC DAILY [facility] Last Admin: 07/22/17 09:24 Dose: 40 mg Hydromorphone HCl (Dilaudid) 2 mg IVP Q3 PRN PRN Reason: Pain, severe (8-10) Last Admin: 07/22/17 11:30 Dose: 2 mg Ciprofloxacin (Cipro 400mg/200ml Dsw) 400 mg in 200 mls @ 133 mls/hr IVPB Q12H ERNAN PRN Reason: Protocol Last Admin: 07/22/17 05:40 Dose: 133 mls/hr Lactulose (Enulose) 20 gm PO HS [facility] Last Admin: 07/21/17 21:16 Dose: 20 gm Pantoprazole Sodium (Protonix Ec Tab) 40 mg PO DAILY [facility] Last Admin: 07/22/17 09:22 Dose: 40 mg Senna/Docusate Sodium (Senokot S 50 Mg-8.6 Mg) 2 tab PO HS [facility] Last Admin: 07/21/17 21:16 Dose: 2 tab Sucralfate (Carafate Oral Susp) 1 gm PO QID [facility] Last Admin: 07/22/17 09:22 Dose: 1 gm - Labs Labs: 07/22/17 07:41 07/22/17 07:41 PT 13.7 SECONDS (9.7-12.2) H 07/18/17 04:25 INR 1.3 07/18/17 04:25 APTT 28 SECONDS (21-34) 07/18/17 04:25 - Head Exam Head Exam: ATRAUMATIC Assessment and Plan (1) Pancytopenia Assessment & Plan: bone metastasis, radiotherapy for growth factor and PRBC support today Status: Acute (2) Prostate cancer Assessment & Plan: stage 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 Status: Acute
[2017-07-22] MEDS ORDERED: Potassium Chloride 20 mEq ER Tab PO ONE (13:08)
--- NOTE | 2017-07-22 14:20 | CP.PCM.PN ---
Subjective - Date & Time of Evaluation Date of Evaluation: 07/22/17 Time of Evaluation: 10:00 - Subjective Subjective: clinically same Objective - Vital Signs/Intake and Output Vital Signs (last 24 hours): Temp Pulse Resp BP Pulse Ox 98.6 F 76 18 104/63 97 07/22/17 14:07 07/22/17 14:07 07/22/17 14:07 07/22/17 14:07 07/22/17 07:00 Intake and Output: 07/22/17 07/22/17 06:59 18:59 Intake Total 1000 0 Balance 1000 0 - Medications Medications: Current Medications Enoxaparin Sodium (Lovenox) 40 mg SC DAILY [facility] Last Admin: 07/22/17 09:24 Dose: 40 mg Hydromorphone HCl (Dilaudid) 2 mg IVP Q3 PRN PRN Reason: Pain, severe (8-10) Last Admin: 07/22/17 11:30 Dose: 2 mg Ciprofloxacin (Cipro 400mg/200ml Dsw) 400 mg in 200 mls @ 133 mls/hr IVPB Q12H RENAN PRN Reason: Protocol Last Admin: 07/22/17 05:40 Dose: 133 mls/hr Lactulose (Enulose) 20 gm PO HS [facility] Last Admin: 07/21/17 21:16 Dose: 20 gm Pantoprazole Sodium (Protonix Ec Tab) 40 mg PO DAILY [facility] Last Admin: 07/22/17 09:22 Dose: 40 mg Senna/Docusate Sodium (Senokot S 50 Mg-8.6 Mg) 2 tab PO HS [facility] Last Admin: 07/21/17 21:16 Dose: 2 tab Sucralfate (Carafate Oral Susp) 1 gm PO QID [facility] Last Admin: 07/22/17 13:31 Dose: 1 gm - Labs Labs: 07/22/17 07:41 07/22/17 07:41 PT 13.7 SECONDS (9.7-12.2) H 07/18/17 04:25 INR 1.3 07/18/17 04:25 APTT 28 SECONDS (21-34) 07/18/17 04:25 - Constitutional Appears: Well - Head Exam Head Exam: ATRAUMATIC, NORMAL INSPECTION, NORMOCEPHALIC - Eye Exam Eye Exam: EOMI, Normal appearance, PERRL Pupil Exam: NORMAL ACCOMODATION, PERRL - ENT Exam ENT Exam: Mucous Membranes Moist, Normal Exam - Neck Exam Neck Exam: Full ROM, Normal Inspection. absent: Lymphadenopathy - Respiratory Exam Respiratory Exam: Decreased Breath Sounds - Cardiovascular Exam Cardiovascular Exam: REGULAR RHYTHM, +S1, +S2 - GI/Abdominal Exam GI & Abdominal Exam: Soft, Diminished Bowel Sounds - Rectal Exam Rectal Exam: Deferred
[2017-07-22] MEDS: Docusate-Senna 50 mg-8.6 mg Tab PO SCH (21:11)
[2017-07-22 23:35] VITALS: RESP 20
[2017-07-23] MEDS: HYDROmorphone 1 mg/ml ISec IVP PRN ×3 (04:12→14:20)
[2017-07-23] MEDS: Ciprofloxacin 400mg/200ml D5W 400 MG/200 ML BAG IVPB SCH ×2 (05:54→17:26)
[2017-07-23 07:27] VITALS: O2SAT 97
[2017-07-23 08:27] LABS: BASO % 0.9 % (0.0-2.0); EOS % 1.3 % (0.0-4.0); HEMOGLOBIN 9.1 g/dL (12.0-18.0); LYMPH # 0.4 K/uL (1.0-4.3); LYMPH % 33.3 % (20.0-40.0); MEAN CELL VOLUME 87.2 fL (80.0-94.0); MEAN CORPUSCULAR HEMOGLOBIN 30.8 pg (27.0-31.0); MEAN CORPUSCULAR HGB CONC 35.3 g/dL (33.0-37.0); MEAN PLATELET VOLUME 7.9 fL (7.2-11.7); MONO % 1.9 % (0.0-10.0); NEUT # 0.8 K/uL (1.8-7.0); NEUT % 62.6 % (50.0-75.0); NRBC % 0.6 % (0.0-2.0); RBC 2.94 Mil/uL (4.40-5.90); RED CELL DISTRIBUTION WIDTH 15.1 % (11.5-14.5)
[2017-07-23 08:39] LABS: WHITE BLOOD COUNT 1.2 K/uL (4.8-10.8)
[2017-07-23] MEDS: Pantoprazole 40 mg EC Tab PO SCH (09:48)
[2017-07-23] MEDS: Enoxaparin 40 mg Syringe SC SCH (09:48)
[2017-07-23] MEDS: Sucralfate 1 gm/10 ml Oral Susp UD PO SCH ×3 (09:48→17:25)
[2017-07-23 10:51] LABS: ALBUMIN 3.5 g/dL (3.5-5.0); ALT/SGPT 28 U/L (21-72); AST/SGOT 25 U/L (17-59); BLOOD UREA NITROGEN 7 mg/dL (9-20); GFR AFRICAN-AMERICAN > 60; GFR NON-AFRICAN AMERICAN > 60
[2017-07-23 16:04] VITALS: BP 126/79; PULSE 80; TEMP 98.2
--- NOTE | 2017-07-23 16:37 | CP.PCM.PN ---
Subjective - Date & Time of Evaluation Date of Evaluation: 07/23/17 Time of Evaluation: 16:37 - Subjective Subjective: PATIENT WAS ADMITTED FOR METASTATIC PROSTATE CANCER AAOX3/ DENIES PAIN / CHEST PAIN OR SOB Objective - Vital Signs/Intake and Output Vital Signs (last 24 hours): Temp Pulse Resp BP Pulse Ox 98.2 F 80 20 126/79 97 07/23/17 15:45 07/23/17 15:45 07/23/17 15:45 07/23/17 15:45 07/23/17 15:45 Intake and Output: 07/23/17 07/23/17 06:59 18:59 Intake Total 1100 Output Total 900 Balance 200 - Medications Medications: Current Medications Enoxaparin Sodium (Lovenox) 40 mg SC DAILY [facility] Last Admin: 07/23/17 09:48 Dose: 40 mg Hydromorphone HCl (Dilaudid) 2 mg IVP Q3 PRN PRN Reason: Pain, severe (8-10) Last Admin: 07/23/17 14:20 Dose: 2 mg Ciprofloxacin (Cipro 400mg/200ml Dsw) 400 mg in 200 mls @ 133 mls/hr IVPB Q12H RENAN PRN Reason: Protocol Last Admin: 07/23/17 05:54 Dose: 133 mls/hr Lactulose (Enulose) 20 gm PO HS [facility] Last Admin: 07/22/17 21:11 Dose: Not Given Pantoprazole Sodium (Protonix Ec Tab) 40 mg PO DAILY [facility] Last Admin: 07/23/17 09:48 Dose: 40 mg Senna/Docusate Sodium (Senokot S 50 Mg-8.6 Mg) 2 tab PO HS [facility] Last Admin: 07/22/17 21:11 Dose: 2 tab Sucralfate (Carafate Oral Susp) 1 gm PO QID [facility] Last Admin: 07/23/17 14:12 Dose: 1 gm - Labs Labs: 07/23/17 08:00 07/23/17 10:07 PT 13.7 SECONDS (9.7-12.2) H 07/18/17 04:25 INR 1.3 07/18/17 04:25 APTT 28 SECONDS (21-34) 07/18/17 04:25 Assessment and Plan - Assessment and Plan (Free Text) Assessment: PATIENT SEEN AND EXAMINED AT THE BEDSIDE LUNG SOUND CLEAR PAIN UNDER CONTROL FOLLOW UP WITH DR Osmin CARLTON IN 1-2 WEEK AT HIS OFFICE ---=CALL FOR APPOITNENT FOLLOW UP WITH DR MELGAR IN AT HIS OFFICE ---CALL FOR APPOINTMENT FOLLOW UP WITH DR PARRISH AT HIS OFFICE 1-2 WEEK ---CALL FOR APPOINTMENT CONTINUE ALL YOUR HOME MEDICATION ACTIVITY TOLERATED CALL DR Osmin CARLTON OR GO TO THE EMREGENCY ROOM IF SYMPTOMS RETURN OR WORSENING DISCUSS WITH PATIENT WHO AGREE AND VERBALIZED UNDERSTANDING
== END 2017-07-23 18:08 | disposition home or self-care (01) | DRG 403 ==
LOC: C.ER 03:45 → C.9E 09:00 → C.5S 12:34 → OBSVTOIN 07-20 18:08
PROVIDERS: ADMIT Internal Medicine Nephrology; ATTEND Internal Medicine Nephrology
DX: C77.2 Secondary and unspecified malignant neoplasm of intra-abdominal lymph nodes (principal); D61.818 Other pancytopenia; C79.51 Secondary malignant neoplasm of bone; C61 Malignant neoplasm of prostate

== ENCOUNTER 2017-07-24 04:46 | Inpatient (IN) | payer MEDICAID ==
--- NOTE | 2017-07-24 05:09 | C.PDOC ---
History Of Present Illness 61 y/o male presents with complaints of diffuse abdominal pain. Patient has PMHx of stage IV prostate cancer with lymph nodes and METs, s/p radiation and androgen deprivation. Patient is on home dilaudid but complains pain is not subsiding tonight. No nausea, vomiting, diarrhea, fever, or chills. Time Seen by Provider: 07/24/17 05:09 Chief Complaint (Nursing): Abdominal Pain History Per: Patient History/Exam Limitations: no limitations Onset/Duration Of Symptoms: Days Current Symptoms Are (Timing): Worse Context: Other Radiation Of Pain To:: Back Quality Of Discomfort: Dull, Stabbing Associated Symptoms: Loss Of Appetite. denies: Fever, Chills, Nausea Exacerbating Factors: None Alleviating Factors: None Last Bowel Movement: Today Recent travel outside of the [place]: No Additional History Per: Patient Past Medical History Reviewed: Historical Data, Nursing Documentation, Vital Signs Vital Signs: Last Vital Signs Temp 98.1 F 07/24/17 04:52 Pulse 89 07/24/17 06:10 Resp 14 07/24/17 06:10 BP 127/77 07/24/17 06:10 Pulse Ox 97 07/24/17 06:31 - Medical History PMH: Malignancy (metastatic prostate cancer) Denies: Chronic Kidney Disease Family History: States: No Known Family Hx - Social History Hx Tobacco Use: No Hx Alcohol Use: Yes Hx Substance Use: No - Immunization History Hx Tetanus Toxoid Vaccination: No Hx Influenza Vaccination: No Hx Pneumococcal Vaccination: No Review Of Systems Constitutional: Negative for: Fever, Chills Eyes: Negative for: Vision Change ENT: Negative for: Throat Pain Cardiovascular: Negative for: Chest Pain Respiratory: Negative for: Shortness of Breath Gastrointestinal: Positive for: Abdominal Pain. Negative for: Nausea, Vomiting , Diarrhea Genitourinary: Negative for: Dysuria Musculoskeletal: Positive for: Back Pain Skin: Positive for: Jaundice (mild). Negative for: Rash Neurological: Negative for: Weakness Psych: Negative for: Anxiety Physical Exam - Physical Exam Appears: Non-toxic, No Acute Distress Skin: Warm, Dry, Jaundice Head: Normacephalic Eye(s): bilateral: Normal Inspection Oral Mucosa: Moist Neck: Trachea Midline, Supple Chest: Symmetrical Cardiovascular: Rhythm Regular Respiratory: No Rales, No Rhonchi, No Wheezing Gastrointestinal/Abdominal: Bowel Sounds (good), Soft, No Tenderness, No Distention Back: No CVA Tenderness Extremity: Normal ROM Extremity: Bilateral: Atraumatic, Normal ROM, Painful To Bear Weight Pulses: Left Dorsalis Pedis: Normal, Right Dorsalis Pedis: Normal Neurological/Psych: Oriented x3, Normal Speech Gait: Steady ED Course And Treatment - Laboratory Results Result Diagrams: 07/24/17 05:50 07/24/17 05:50 ECG: Interpreted By Me, Viewed By Me ECG Rhythm: Sinus Rhythm (91), Nonspecific Changes O2 Sat by Pulse Oximetry: 97 (RA) Pulse Ox Interpretation: Normal Progress Note: Labs and EKG ordered. Patient given IVF hydration, 4 mg IV Morphine, and 4 mg IV Zofran. Disposition Discussed With Dr.: Vazquez Pavon Comment: accepted the pt on his service and took over the care at 6:26 AM Doctor Will See Patient In The: Hospital Counseled Patient/Family Regarding: Studies Performed, Diagnosis - Disposition Disposition: HOSPITALIZED Disposition Time: 05:09 Condition: GUARDED - POA Present On Arrival: None - Clinical Impression Clinical Impression: Intractable abdominal pain, Prostate cancer, primary, with metastasis from prostate to other site, Neutropenia - Scribe Statement The provider has reviewed the documentation as recorded by the Scribe (Alma Rosa Huitron) Provider Attestation: All medical record entries made by the Scribe were at my direction and personally dictated by me. I have reviewed the chart and agree that the record accurately reflects my personal performance of the history, physical exam, medical decision making, and the department course for this patient. I have also personally directed, reviewed, and agree with the discharge instructions and disposition. Decision To Admit - Pt Status Changed To: Hospital Disposition Of: Inpatient - Admit Certification Admit to Inpatient:: After my assessment, the patient will require hospitalization for at least two midnights. This is because of the severity of symptoms shown, intensity of services needed, and/or the medical risk in this patient being treated as an outpatient. - InPatient: Physician Admission Certification:: After my assessment, the patient will require hospitalization for at least two midnights. This is because of the severity of symptoms shown, intensity of services needed, and/or the medical risk in this patient being treated as an outpatient. - . Bed Request Type: Regular Admitting Physician: Vazquez Pavon Patient Diagnosis: Intractable abdominal pain, Prostate cancer, primary, with metastasis from prostate to other site, Neutropenia
[2017-07-24] MEDS ORDERED: Sodium Chloride 0.9% 1,000 ML IV ONE (05:10)
[2017-07-24] MEDS ORDERED: Morphine 4 MG/ML VIAL ONE (05:46)
[2017-07-24 05:55] LABS: BASO % 1.1 % (0.0-2.0); EOS % 1.1 % (0.0-4.0); HEMOGLOBIN 9.8 g/dL (12.0-18.0); LYMPH # 0.4 K/uL (1.0-4.3); LYMPH % 36.5 % (20.0-40.0); MEAN CELL VOLUME 87.3 fL (80.0-94.0); MEAN CORPUSCULAR HEMOGLOBIN 30.7 pg (27.0-31.0); MEAN CORPUSCULAR HGB CONC 35.1 g/dL (33.0-37.0); MEAN PLATELET VOLUME 8.3 fL (7.2-11.7); NEUT # 0.7 K/uL (1.8-7.0); NEUT % 59.3 % (50.0-75.0); NRBC % 0.6 % (0.0-2.0); RBC 3.18 Mil/uL (4.40-5.90); RED CELL DISTRIBUTION WIDTH 15.5 % (11.5-14.5)
[2017-07-24 06:02] LABS: INR 1.1; PROTHROMBIN TIME 12.2 SECONDS (9.7-12.2)
[2017-07-24 06:03] LABS: WHITE BLOOD COUNT 1.1 K/uL (4.8-10.8)
[2017-07-24 06:13] LABS: ALB/GLOB RATIO 1.1 (1.0-2.1); ALBUMIN 3.8 g/dL (3.5-5.0); ALT/SGPT 17 U/L (21-72); AST/SGOT 40 U/L (17-59); BLOOD UREA NITROGEN 12 mg/dL (9-20); CALCIUM 9.2 mg/dl (8.6-10.4); GFR AFRICAN-AMERICAN > 60; GFR NON-AFRICAN AMERICAN > 60; LIPASE 80 U/L (23-300)
[2017-07-24] MEDS ORDERED: HYDROmorphone 0.5 mg/0.5 ml ISec IVP PRN (08:52)
[2017-07-24] MEDS ORDERED: HYDROmorphone 1 mg/ml ISec IVP PRN (09:30)
[2017-07-24] MEDS: HYDROmorphone 0.5 mg/0.5 ml ISec IVP PRN ×4 (09:54→17:34)
--- NOTE | 2017-07-24 10:40 | CP.PCM.CON ---
Past Patient History - Past Medical History & Family History Past Medical History?: No - Past Social History Smoking Status: Never Smoked - CARDIAC Hx Cardiac Disorders: No - PULMONARY Hx Respiratory Disorders: No - NEUROLOGICAL Hx Neurological Disorder: No - HEENT Hx HEENT Problems: No - RENAL Hx Chronic Kidney Disease: No - ENDOCRINE/METABOLIC Hx Endocrine Disorders: No - HEMATOLOGICAL/ONCOLOGICAL Hx Blood Transfusions: Yes Hx Blood Transfusion Reaction: No - INTEGUMENTARY Hx Dermatological Problems: No - MUSCULOSKELETAL/RHEUMATOLOGICAL Hx Musculoskeletal Disorders: No Hx Falls: No - GASTROINTESTINAL Hx Gastrointestinal Disorders: No - GENITOURINARY/GYNECOLOGICAL Hx Genitourinary Disorders: Yes Hx Prostate Cancer: Yes (radiation) - PSYCHIATRIC Hx Substance Use: No - SURGICAL HISTORY Hx Surgeries: No - ANESTHESIA Hx Anesthesia: No Hx Anesthesia Reactions: No Meds Allergies/Adverse Reactions: Allergies Allergy/AdvReac Type Severity Reaction Status Date / Time No Known Allergies Allergy Unverified 07/18/17 03:58 - Medications Medications: Current Medications Hydromorphone HCl (Dilaudid) 2 mg IVP Q3 PRN PRN Reason: Pain, severe (8-10) Results - Vital Signs Recent Vital Signs: Last Vital Signs Temp 98.0 F 07/24/17 08:27 Pulse 97 H 07/24/17 08:27 Resp 20 07/24/17 08:27 BP 167/96 H 07/24/17 08:27 Pulse Ox 100 07/24/17 08:27 - Labs Result Diagrams: 07/24/17 05:50 07/24/17 05:50 Labs: Laboratory Results - last 24 hr 07/24/17 07/24/17 07/24/17 05:50 05:50 05:50 WBC 1.1 L* RBC 3.18 L Hgb 9.8 L Hct 27.8 L MCV 87.3 MCH 30.7 MCHC 35.1 RDW 15.5 H Plt Count 64 L MPV 8.3 Neut % (Auto) 59.3 Lymph % (Auto) 36.5 [place] % (Auto) 2.0 Eos % (Auto) 1.1 Baso % (Auto) 1.1 Neut # (Auto) 0.7 L Lymph # (Auto) 0.[address] [place] # (Auto) 0.0 Eos # (Auto) 0.0 Baso # (Auto) 0.0 PT 12.2 INR 1.1 APTT 33 Sodium 139 Potassium 4.2 Chloride 102 Carbon Dioxide 26 Anion Gap 16 BUN 12 Creatinine 0.7 L Est GFR ( Amer) > 60 Est GFR (Non-Af Amer) > 60 Random Glucose 111 H Calcium 9.2 Total Bilirubin 0.9 AST 40 ALT 17 L D Alkaline Phosphatase 369 H Total Protein 7.3 Albumin 3.8 Globulin 3.5 Albumin/Globulin Ratio 1.1 Lipase 80
--- NOTE | 2017-07-24 14:17 | CP.PCM.PN ---
Subjective - Date & Time of Evaluation Date of Evaluation: 07/24/17 Time of Evaluation: 14:17 - Subjective Subjective: PATIENT AAOX3 SITTING AT THE BEDSIDE STATING AFTER THE HAVING A BM HE FELT BETTER N OSIGN OF DISTRESS NOTED Objective - Vital Signs/Intake and Output Vital Signs (last 24 hours): Temp Pulse Resp BP Pulse Ox 98.0 F 97 H 20 167/96 H 100 07/24/17 08:27 07/24/17 08:27 07/24/17 08:27 07/24/17 08:27 07/24/17 08:27 - Medications Medications: Current Medications Hydromorphone HCl (Dilaudid) 2 mg IVP Q3 PRN PRN Reason: Pain, severe (8-10) Last Admin: 07/24/17 14:07 Dose: 2 mg - Labs Labs: 07/24/17 05:50 07/24/17 05:50 PT 12.2 SECONDS (9.7-12.2) 07/24/17 05:50 INR 1.1 07/24/17 05:50 APTT 33 SECONDS (21-34) 07/24/17 05:50 Assessment and Plan - Assessment and Plan (Free Text) Assessment: FOLLOW UP WITH DR Osmin CARLTON IN 1-2 WEEK AT HIS OFFICE ---=CALL FOR APPOITNENT FOLLOW UP WITH DR MELGAR IN AT HIS OFFICE ---CALL FOR APPOINTMENT FOLLOW UP WITH DR PARRISH AT HIS OFFICE 1-2 WEEK ---CALL FOR APPOINTMENT CONTINUE ALL YOUR HOME MEDICATION NEW PRESCRIPTION GIVEN [place] PATCH 50MCG/HR Q72 HOURS LACTULOSE 10MG/15ML PO AT HS ACTIVITY TOLERATED CALL DR Osmin CARLTON OR GO TO THE EMREGENCY ROOM IF SYMPTOMS RETURN OR WORSENING
[2017-07-24 15:30] LABS: SQUAMOUS EPITHIAL 1 /hpf (0-5); URINE BILIRUBIN NEGATIVE (NEGATIVE); URINE BLOOD NEGATIVE (NEGATIVE); URINE CLARITY Clear (Clear); URINE COLOR Yellow (YELLOW); URINE GLUCOSE (UA) NORMAL (Normal); URINE LEUKOCYTE ESTERASE NEG Leu/uL (Negative); URINE PROTEIN NEGATIVE (NEGATIVE); URINE UROBILINOGEN NORMAL mg/dL (0.2-1.0)
[2017-07-24 15:42] VITALS: BP 132/79; PULSE 81; RESP 18; TEMP 98.2; O2SAT 99
== END 2017-07-24 18:32 | disposition home or self-care (01) | DRG 813 ==
LOC: C.ER 04:46 → C.9E 06:28 → C.5S 07:10
PROVIDERS: ADMIT Internal Medicine Nephrology; ATTEND Internal Medicine Nephrology
DX: R10.9 Unspecified abdominal pain (principal); C79.9 Secondary malignant neoplasm of unspecified site; D70.9 Neutropenia, unspecified; Z85.46 Personal history of malignant neoplasm of prostate; Z92.3 Personal history of irradiation

== ENCOUNTER 2017-07-25 13:18 | Inpatient (IN) | payer MEDICAID ==
[2017-07-25] MEDS ORDERED: Sodium Chloride 0.9% 1,000 ML IV ONE (13:32)
[2017-07-25] MEDS ORDERED: HYDROmorphone 1 mg/ml ISec IVP STA (13:47)
--- NOTE | 2017-07-25 13:49 | C.PDOC ---
History Of Present Illness 61 y/o male with a PMHx of metastatic prostate cancer presents to the ED complaining of persistent abdominal pain. Patient was recently admitted for intractable abdominal pain and discharged home yesterday. He now returns to the ED for recurrence of pain. Maikol any nausea, vomiting, fever, or chills. (+) constipation. Time Seen by Provider: 07/25/17 13:30 Chief Complaint (Nursing): Abdominal Pain History Per: Patient History/Exam Limitations: no limitations Onset/Duration Of Symptoms: Days Current Symptoms Are (Timing): Still Present Past Medical History Reviewed: Historical Data, Nursing Documentation, Vital Signs Vital Signs: Last Vital Signs Temp 98.7 F 07/25/17 15:06 Pulse 96 H 07/25/17 15:06 Resp 16 07/25/17 15:06 BP 133/94 H 07/25/17 15:06 Pulse Ox 99 07/25/17 15:06 - Medical History PMH: Malignancy (metastatic prostate cancer) Denies: Chronic Kidney Disease Surgical History: No Surg Hx Family History: States: No Known Family Hx - Social History Hx Tobacco Use: No Hx Alcohol Use: No Hx Substance Use: No - Immunization History Hx Tetanus Toxoid Vaccination: No Hx Influenza Vaccination: No Hx Pneumococcal Vaccination: No Review Of Systems Except As Marked, All Systems Reviewed And Found Negative. Gastrointestinal: Positive for: Abdominal Pain, Constipation Physical Exam - Physical Exam Appears: Non-toxic, No Acute Distress, Chronically Ill Skin: Normal Color, Warm, Dry Head: Atraumatic, Normacephalic Eye(s): bilateral: Normal Inspection, PERRL, EOMI Nose: Normal Oral Mucosa: Moist Neck: Normal ROM, Supple Chest: Symmetrical Cardiovascular: Rhythm Regular, No Murmur Respiratory: Normal Breath Sounds, No Rales, No Rhonchi, No Wheezing Gastrointestinal/Abdominal: Soft, Tenderness (diffuse abdominal tenderness), No Guarding, No Rebound Back: Normal Inspection, No CVA Tenderness, No Vertebral Tenderness Extremity: Bilateral: Atraumatic, Normal Color And Temperature, Normal ROM Pulses: Left Dorsalis Pedis: Normal, Right Dorsalis Pedis: Normal Neurological/Psych: Oriented x3, Normal Speech, Other (No focal deficits) ED Course And Treatment - Laboratory Results Result Diagrams: 07/25/17 15:07 07/25/17 13:57 O2 Sat by Pulse Oximetry: 98 (RA) Pulse Ox Interpretation: Normal - Other Rad abd obstructive series X-Ray: Read By Radiologist Interpretation: Creator : Jimmy Barnes MD. Dictator : Jimmy Barnes MD. [employer]ants [employer] Contracts Assistant : Dampener : Jimmy Barnes MD. Approver2 : Report Date : 07/25/2017 14:27:33. My Comment : . Abdomen four views. History: Abdominal pain. Comparison: None available. Findings: Degenerative changes in the spine and pelvis with a mixed sclerotic appearance. Correlation with bone scan maybe helpful if clinically indicated. Multilevel paravertebral osteophyte formation. Gaseous distention of the colon. Few mildly distended loops of small bowel seen within the right and mid hemiabdomen. Mild venous congestion. Mild patchy increased markings at the lung bases. Relative sclerotic density seen within the proximal medullary cavity of the right humerus. Clinical correlation. Heart size within normal limits. Impression: Nonspecific bowel gas pattern with a few distended loops of small bowel seen within the right and midhemi abdomen. Clinical correlation. Patchy sclerotic appearance of the osseous structures. This is of uncertain clinical etiology. Clinical correlation. Correlation with bone scan may be helpful. For example, sclerotic foci is noted within the proximal medullary cavity of the the proximal humerus. Medical Decision Making Medical Decision Making: Impression: Intractable abdominal pain, Metastatic prostate cancer Initial Plan: --CMP --CBC --Lipase --UA --Obstructive series --IV fluids --Dilaudid 1 mg IV --Zofran 4 mg IV Discussed w/ Dr. Osmin Pavon, who will admit patient for observation to Med/Surg. Disposition Discussed With DrDiane: Vazquez Pavon Doctor Will See Patient In The: Hospital Counseled Patient/Family Regarding: Studies Performed, Diagnosis - Disposition Disposition: HOSPITALIZED Disposition Time: 13:48 Condition: FAIR - Clinical Impression Clinical Impression: Abdominal pain, Metastatic malignant neoplasm to prostate - Scribe Statement The provider has reviewed the documentation as recorded by the Scribe (Alma Rosa Huitron) Provider Attestation: All medical record entries made by the Scribe were at my direction and personally dictated by me. I have reviewed the chart and agree that the record accurately reflects my personal performance of the history, physical exam, medical decision making, and the department course for this patient. I have also personally directed, reviewed, and agree with the discharge instructions and disposition.
[2017-07-25] MEDS ORDERED: Sodium Chloride 0.9% 1,000 ML ONE (14:04)
[2017-07-25 14:20] LABS: ALBUMIN 3.8 g/dL (3.5-5.0); ALT/SGPT 17 U/L (21-72); AST/SGOT 76 U/L (17-59); BLOOD UREA NITROGEN 17 mg/dL (9-20); CALCIUM 8.1 mg/dl (8.6-10.4); GFR AFRICAN-AMERICAN > 60; GFR NON-AFRICAN AMERICAN > 60; LIPASE 54 U/L (23-300)
--- NOTE | 2017-07-25 14:29 | RAD ---
Abdomen four views History: Abdominal pain. Comparison: None available. Findings: Degenerative changes in the spine and pelvis with a mixed sclerotic appearance. Correlation with bone scan maybe helpful if clinically indicated. Multilevel paravertebral osteophyte formation. Gaseous distention of the colon. Few mildly distended loops of small bowel seen within the right and mid hemiabdomen. Mild venous congestion. Mild patchy increased markings at the lung bases. Relative sclerotic density seen within the proximal medullary cavity of the right humerus. Clinical correlation. Heart size within normal limits. Impression: Nonspecific bowel gas pattern with a few distended loops of small bowel seen within the right and midhemi abdomen. Clinical correlation. Patchy sclerotic appearance of the osseous structures. This is of uncertain clinical etiology. Clinical correlation. Correlation with bone scan may be helpful. For example, sclerotic foci is noted within the proximal medullary cavity of the the proximal humerus.
[2017-07-25 15:10] LABS: BASO % 0.9 % (0.0-2.0); EOS % 1.1 % (0.0-4.0); HEMOGLOBIN 8.5 g/dL (12.0-18.0); LYMPH # 0.3 K/uL (1.0-4.3); LYMPH % 30.5 % (20.0-40.0); MEAN CELL VOLUME 87.6 fL (80.0-94.0); MEAN CORPUSCULAR HEMOGLOBIN 30.5 pg (27.0-31.0); MEAN CORPUSCULAR HGB CONC 34.8 g/dL (33.0-37.0); MEAN PLATELET VOLUME 8.1 fL (7.2-11.7); MONO % 2.6 % (0.0-10.0); NEUT # 0.7 K/uL (1.8-7.0); NEUT % 64.9 % (50.0-75.0); NRBC % 0.1 % (0.0-2.0); RBC 2.8 Mil/uL (4.40-5.90); RED CELL DISTRIBUTION WIDTH 15.4 % (11.5-14.5)
[2017-07-25 15:15] LABS: URINE BILIRUBIN NEGATIVE (NEGATIVE); URINE BLOOD NEGATIVE (NEGATIVE); URINE CLARITY Clear (Clear); URINE COLOR Straw (YELLOW); URINE GLUCOSE (UA) NORMAL (Normal); URINE LEUKOCYTE ESTERASE NEG Leu/uL (Negative); URINE PROTEIN NEGATIVE (NEGATIVE); URINE UROBILINOGEN NORMAL mg/dL (0.2-1.0)
[2017-07-25 15:25] LABS: WHITE BLOOD COUNT 1.1 K/uL (4.8-10.8)
[2017-07-25] MEDS ORDERED: HYDROmorphone 0.5 mg/0.5 ml ISec IVP STA (18:12)
[2017-07-25] MEDS ORDERED: POLYETHYLENE GLYCOL 3350 17 GM/Dose PACKET PO ONE (19:30)
[2017-07-25] MEDS: Sodium Chloride 0.9% 1,000 ML IV SCH (19:45)
[2017-07-25] MEDS ORDERED: Docusate-Senna 50 mg-8.6 mg Tab PO SCH (22:00)
[2017-07-25] MEDS: Docusate-Senna 50 mg-8.6 mg Tab PO SCH (22:12)
[2017-07-25] MEDS: HYDROmorphone 0.5 mg/0.5 ml ISec IVP PRN (23:10)
[2017-07-26] MEDS: HYDROmorphone 0.5 mg/0.5 ml ISec IVP PRN ×3 (05:39→19:15)
[2017-07-26 07:54] VITALS: RESP 20
[2017-07-26 08:07] LABS: BASO % 1.3 % (0.0-2.0); EOS % 1.9 % (0.0-4.0); HEMOGLOBIN 7.9 g/dL (12.0-18.0); LYMPH # 0.3 K/uL (1.0-4.3); LYMPH % 41.9 % (20.0-40.0); MEAN CELL VOLUME 87.8 fL (80.0-94.0); MEAN CORPUSCULAR HEMOGLOBIN 30.9 pg (27.0-31.0); MEAN CORPUSCULAR HGB CONC 35.2 g/dL (33.0-37.0); MEAN PLATELET VOLUME 8.4 fL (7.2-11.7); MONO % 3.2 % (0.0-10.0); NEUT # 0.4 K/uL (1.8-7.0); NEUT % 51.7 % (50.0-75.0); NRBC % 0.5 % (0.0-2.0); RBC 2.57 Mil/uL (4.40-5.90); RED CELL DISTRIBUTION WIDTH 15.8 % (11.5-14.5)
[2017-07-26 08:12] LABS: WHITE BLOOD COUNT 0.7 K/uL (4.8-10.8)
[2017-07-26 08:34] LABS: ALBUMIN 3.1 g/dL (3.5-5.0); ALT/SGPT 14 U/L (21-72); AST/SGOT 34 U/L (17-59); BLOOD UREA NITROGEN 8 mg/dL (9-20); CALCIUM 6.7 mg/dl (8.6-10.4); GFR AFRICAN-AMERICAN > 60; GFR NON-AFRICAN AMERICAN > 60
--- NOTE | 2017-07-26 08:56 | CP.PCM.CON ---
<Michael Pavon - Last Filed: 07/26/17 11:16> History of Present Illness - History of Present Illness History of Present Illness: Initial PGY4 GI Consult Mynor Ramirez is a 61M w/ hx of met prostate ca, chronic constipation from opiods who presented to the ER due to intractable abd pain. Pt was recently admitted for similar complaints and discharged one day prior. He was was advised to continue his stool softeners at home. He noted constipation in the morning and afternoon. He proceeded to take his laxatives without immediate relief. He notes eventually relief at night followed by generalized abd pain. He noted that the pain was diffuse and 10 out of 10. He came to the ER for further eval. Pt is is currently diagnosed with met prostate can with extensive mets to the bones. He is actively getting tx with Dr. Recinos and awaiting to start radiation therapy. Spoke with pts' daughter. He was recently admitted to [facility] [place] for abd pain and was found to have diverticulitis on June 22. He is scheduled for an EGD with GI at [place] in 1 week. Since this admission, pt' s abdominal pain has resolved and he has 2 BM, non-bloody. Past medical history: Stage IV prostate cancer Past surgical history: None Family history: Reviewed; no hx of GI malignancies Social history: Social alcohol. ROS: 12 point ROS conducted, neg other than above Past Patient History - Past Medical History & Family History Past Medical History?: Yes - Past Social History Smoking Status: Never Smoked - CARDIAC Hx Cardiac Disorders: No - PULMONARY Hx Respiratory Disorders: No - NEUROLOGICAL Hx Neurological Disorder: No - HEENT Hx HEENT Problems: No - RENAL Hx Chronic Kidney Disease: No - ENDOCRINE/METABOLIC Hx Endocrine Disorders: No - HEMATOLOGICAL/ONCOLOGICAL Hx Blood Transfusions: Yes Hx Blood Transfusion Reaction: No - INTEGUMENTARY Hx Dermatological Problems: No - MUSCULOSKELETAL/RHEUMATOLOGICAL Hx Musculoskeletal Disorders: No Hx Falls: No - GASTROINTESTINAL Hx Gastrointestinal Disorders: No - GENITOURINARY/GYNECOLOGICAL Hx Genitourinary Disorders: Yes Hx Prostate Cancer: Yes (radiation) - PSYCHIATRIC Hx Substance Use: No - SURGICAL HISTORY Hx Surgeries: No - ANESTHESIA Hx Anesthesia: No Hx Anesthesia Reactions: No Hx Malignant Hyperthermia: No Meds Allergies/Adverse Reactions: Allergies Allergy/AdvReac Type Severity Reaction Status Date / Time No Known Allergies Allergy Verified 07/25/17 17:22 - Medications Medications: Current Medications Enoxaparin Sodium (Lovenox) 40 mg SC DAILY [facility] Home Med (Patient's Own Medication) 4 tab PO DAILY [facility] Hydromorphone HCl (Dilaudid) 2 mg IVP Q4H PRN PRN Reason: Pain, severe (8-10) Last Admin: 07/26/17 05:39 Dose: 2 mg Sodium Chloride (Sodium Chloride 0.9%) 1,000 mls @ 50 mls/hr IV .Q20H [facility] Last Admin: 07/25/17 19:45 Dose: 50 mls/hr Lactulose (Enulose) 10 gm PO HS [facility] Last Admin: 07/25/17 22:12 Dose: 10 gm Pantoprazole Sodium (Protonix Ec Tab) 40 mg PO DAILY [facility] Pneumococcal Polyvalent Vaccine (Pneumovax 23 Vaccine) 0.5 ml IM .ONCE ONE Stop: 07/26/17 10:01 Polyethylene Glycol (Miralax) 17 gm PO DAILY [facility] Senna/Docusate Sodium (Senokot S 50 Mg-8.6 Mg) [address] [facility] Last Admin: 07/25/17 22:12 Dose: 2 tab Physical Exam - Constitutional Appears: Well, No Acute Distress - Head Exam Head Exam: ATRAUMATIC, NORMOCEPHALIC - Eye Exam Eye Exam: Normal appearance - ENT Exam ENT Exam: Mucous Membranes Moist, Normal Exam - Neck Exam Neck exam: Positive for: Normal Inspection - Respiratory Exam Respiratory Exam: Clear to Auscultation Bilateral, NORMAL BREATHING PATTERN. absent: Rales, Rhonchi, Wheezes, Respiratory Distress - Cardiovascular Exam Cardiovascular Exam: REGULAR RHYTHM, +S1, +S2 - GI/Abdominal Exam GI & Abdominal Exam: Normal Bowel Sounds, Soft. absent: Diminished Bowel Sounds , Distended, Firm, Guarding, Hernia, Organomegaly, Rebound - Extremities Exam Extremities exam: Negative for: joint swelling, pedal edema - Neurological Exam Neurological exam: Alert, Oriented x3 - Psychiatric Exam Psychiatric exam: Normal Affect, Normal Mood - Skin Skin Exam: Dry, Intact, Normal Color, Warm Results - Vital Signs Recent Vital Signs: Last Vital Signs Temp 98.3 F 07/26/17 07:51 Pulse 81 07/26/17 07:51 Resp 20 07/26/17 07:51 BP 122/70 07/26/17 07:51 Pulse Ox 97 07/26/17 07:51 - Labs Result Diagrams: 07/26/17 07:56 07/26/17 07:56 Labs: Laboratory Results - last 24 hr 07/25/17 07/25/17 07/25/17 13:57 15:07 15:07 WBC 1.1 L* RBC 2.80 L Hgb 8.5 L Hct 24.5 L MCV 87.6 MCH 30.5 MCHC 34.8 RDW 15.4 H Plt Count 59 L MPV 8.1 Neut % (Auto) 64.9 Lymph % (Auto) 30.5 [place] % (Auto) 2.6 Eos % (Auto) 1.1 Baso % (Auto) 0.9 Neut # (Auto) 0.7 L Lymph # (Auto) 0.3 L [place] # (Auto) 0.0 Eos # (Auto) 0.0 Baso # (Auto) 0.0 Sodium 133 Potassium 5.0 Chloride 100 Carbon Dioxide 22 Anion Gap 16 BUN 17 Creatinine 0.7 L Est GFR ( Amer) > 60 Est GFR (Non-Af Amer) > 60 Random Glucose 123 H Calcium 8.1 L Total Bilirubin 1.2 AST 76 H D ALT 17 L Alkaline Phosphatase 412 H Total Protein 7.8 Albumin 3.8 Globulin 4.0 H Albumin/Globulin Ratio 1.0 Lipase 54 Urine Color Straw Urine Clarity Clear Urine pH 6.0 Ur Specific [place] 1.004 Urine Protein Negative Urine Glucose (UA) Normal Urine Ketones Negative Urine Blood Negative Urine Nitrate Negative Urine Bilirubin Negative Urine Urobilinogen Normal Ur Leukocyte Esterase Neg Urine WBC (Auto) < 1 Urine RBC (Auto) < 1 07/26/17 07/26/17 07:56 07:56 WBC 0.7 L* RBC 2.57 L Hgb 7.9 L Hct 22.6 L MCV 87.8 MCH 30.9 MCHC 35.2 RDW 15.8 H Plt Count 54 L MPV 8.4 Neut % (Auto) 51.7 Lymph % (Auto) 41.9 H [place] % (Auto) 3.2 Eos % (Auto) 1.9 Baso % (Auto) 1.3 Neut # (Auto) 0.4 L Lymph # (Auto) 0.3 L [place] # (Auto) 0.0 Eos # (Auto) 0.0 Baso # (Auto) 0.0 Sodium 139 Potassium 3.4 L Chloride 106 Carbon Dioxide 23 Anion Gap 13 BUN 8 L Creatinine 0.6 L Est GFR ( Amer) > 60 Est GFR (Non-Af Amer) > 60 Random Glucose 93 Calcium 6.7 L Total Bilirubin 0.3 AST 34 ALT 14 L Alkaline Phosphatase 360 H Total Protein 6.2 L Albumin 3.1 L Globulin 3.1 Albumin/Globulin Ratio 1.0 Lipase Urine Color Urine Clarity Urine pH Ur Specific [place] Urine Protein Urine Glucose (UA) Urine Ketones Urine Blood Urine Nitrate Urine Bilirubin Urine Urobilinogen Ur Leukocyte Esterase Urine WBC (Auto) Urine RBC (Auto) Assessment & Plan - Assessment and Plan (Free Text) Assessment: Mynor Ramirez is a 61M w/ hx of met prostate ca, chronic constipation from opiods who presented to the ER due to intractable abd pain. Abd Pain likely 2/2 chronic constipation Chronic Constipation due to opiods Hx of Met Prostate Ca Plan: -recommend GI oupt colonoscopy with primary GI -continue miralax BID with senna at bedtime -eat more fiber and drink more water -recommend f/u with primary GI at [place] -will need post diverticultis colonoscopy -no indication for any GI procedures at time -advance diet as tolerated -may be a good candidate for Relistor as an oupt D/W Dr Willoughby <Adithya Willoughby - Last Filed: 07/26/17 11:26> Meds - Medications Medications: Current Medications Enoxaparin Sodium (Lovenox) 40 mg SC DAILY [facility] Last Admin: 07/26/17 09:56 Dose: 40 mg Home Med (Patient's Own Medication) 4 tab PO DAILY [facility] Last Admin: 07/26/17 09:53 Dose: 4 tab Hydromorphone HCl (Dilaudid) 2 mg IVP Q4H PRN PRN Reason: Pain, severe (8-10) Last Admin: 07/26/17 05:39 Dose: 2 mg Sodium Chloride (Sodium Chloride 0.9%) 1,000 mls @ 50 mls/hr IV .Q20H [facility] Last Admin: 07/25/17 19:45 Dose: 50 mls/hr Lactulose (Enulose) 10 gm PO HS [facility] Last Admin: 07/25/17 22:12 Dose: 10 gm Pantoprazole Sodium (Protonix Ec Tab) 40 mg PO DAILY [facility] Last Admin: 07/26/17 09:57 Dose: 40 mg Polyethylene Glycol (Miralax) 17 gm PO BID [facility] Senna/Docusate Sodium (Senokot S 50 Mg-8.6 Mg) 2 tab PO HS [facility] Last Admin: 07/25/17 22:12 Dose: 2 tab Results - Vital Signs Recent Vital Signs: Last Vital Signs Temp 98.3 F 07/26/17 07:51 Pulse 81 07/26/17 07:51 Resp 20 07/26/17 07:51 BP 122/70 07/26/17 07:51 Pulse Ox 97 07/26/17 07:51 - Labs Result Diagrams: 07/26/17 07:56 07/26/17 07:56 Labs: Laboratory Results - last 24 hr 07/25/17 07/25/17 07/25/17 13:57 15:07 15:07 WBC 1.1 L* RBC 2.80 L Hgb 8.5 L Hct 24.5 L MCV 87.6 MCH 30.5 MCHC 34.8 RDW 15.4 H Plt Count 59 L MPV 8.1 Neut % (Auto) 64.9 Lymph % (Auto) 30.5 [place] % (Auto) 2.6 Eos % (Auto) 1.1 Baso % (Auto) 0.9 Neut # (Auto) 0.7 L Lymph # (Auto) 0.3 L [place] # (Auto) 0.0 Eos # (Auto) 0.0 Baso # (Auto) 0.0 Sodium 133 Potassium 5.0 Chloride 100 Carbon Dioxide 22 Anion Gap 16 BUN 17 Creatinine 0.7 L Est GFR ( Amer) > 60 Est GFR (Non-Af Amer) > 60 Random Glucose 123 H Calcium 8.1 L Total Bilirubin 1.2 AST 76 H D ALT 17 L Alkaline Phosphatase 412 H Total Protein 7.8 Albumin 3.8 Globulin 4.0 H Albumin/Globulin Ratio 1.0 Lipase 54 Urine Color Straw Urine Clarity Clear Urine pH 6.0 Ur Specific [place] 1.004 Urine Protein Negative Urine Glucose (UA) Normal Urine Ketones Negative Urine Blood Negative Urine Nitrate Negative Urine Bilirubin Negative Urine Urobilinogen Normal Ur Leukocyte Esterase Neg Urine WBC (Auto) < 1 Urine RBC (Auto) < 1 07/26/17 07/26/17 07:56 07:56 WBC 0.7 L* RBC 2.57 L Hgb 7.9 L Hct 22.6 L MCV 87.8 MCH 30.9 MCHC 35.2 RDW 15.8 H Plt Count 54 L MPV 8.4 Neut % (Auto) 51.7 Lymph % (Auto) 41.9 H [place] % (Auto) 3.2 Eos % (Auto) 1.9 Baso % (Auto) 1.3 Neut # (Auto) 0.4 L Lymph # (Auto) 0.3 L [place] # (Auto) 0.0 Eos # (Auto) 0.0 Baso # (Auto) 0.0 Sodium 139 Potassium 3.4 L Chloride 106 Carbon Dioxide 23 Anion Gap 13 BUN 8 L Creatinine 0.6 L Est GFR ( Amer) > 60 Est GFR (Non-Af Amer) > 60 Random Glucose 93 Calcium 6.7 L Total Bilirubin 0.3 AST 34 ALT 14 L Alkaline Phosphatase 360 H Total Protein 6.2 L Albumin 3.1 L Globulin 3.1 Albumin/Globulin Ratio 1.0 Lipase Urine Color Urine Clarity Urine pH Ur Specific [place] Urine Protein Urine Glucose (UA) Urine Ketones Urine Blood Urine Nitrate Urine Bilirubin Urine Urobilinogen Ur Leukocyte Esterase Urine WBC (Auto) Urine RBC (Auto) Attending/Attestation - Attestation I have personally seen and examined this patient.: Yes I have fully participated in the care of the patient.: Yes I have reviewed all pertinent clinical information: Yes Notes (Text): 07/26/17 11:24 61 yr old M w/ hx of metastatic prostate CA, with chronic constipation from opioids who presented to the ER due to intractable abdominal pain. Passing gas/ flatus and small bowels. Tolerating diet. Recommend outpatient colonoscopy and stool softeners with narcotics. No s/s of obstruction or ileus. Has primary GI at [place] so will sign off. Thank you for letting us participate in the care of your patient
[2017-07-26] MEDS: ENZALUTAMIDE 40 MG PO SCH (09:53)
[2017-07-26] MEDS: Enoxaparin 40 mg Syringe SC SCH (09:56)
[2017-07-26] MEDS: Pantoprazole 40 mg EC Tab PO SCH (09:57)
[2017-07-26] MEDS ORDERED: Home Med 1 UNIT PO SCH (10:00)
[2017-07-26] MEDS ORDERED: Pneumococcal 23-Valent Vaccine IM ONE (10:00)
[2017-07-26] MEDS ORDERED: POLYETHYLENE GLYCOL 3350 17 GM/Dose PACKET PO SCH ×2 (10:00)
[2017-07-26] MEDS ORDERED: Home Med 1 UNIT (Lubiprostone [Amitiza] 24 MCG) PO SCH (10:00)
[2017-07-26] MEDS ORDERED: Pantoprazole 40 mg EC Tab PO SCH (10:00)
[2017-07-26] MEDS ORDERED: Potassium Chloride 20 mEq ER Tab PO ONE ×2 (14:25→14:57)
--- NOTE | 2017-07-26 15:53 | CP.PCM.HP ---
Past Patient History - Past Medical History & Family History Past Medical History?: Yes - Past Social History Smoking Status: Never Smoked - CARDIAC Hx Cardiac Disorders: No - PULMONARY Hx Respiratory Disorders: No - NEUROLOGICAL Hx Neurological Disorder: No - HEENT Hx HEENT Problems: No - RENAL Hx Chronic Kidney Disease: No - ENDOCRINE/METABOLIC Hx Endocrine Disorders: No - HEMATOLOGICAL/ONCOLOGICAL Hx Blood Transfusions: Yes Hx Blood Transfusion Reaction: No - INTEGUMENTARY Hx Dermatological Problems: No - MUSCULOSKELETAL/RHEUMATOLOGICAL Hx Musculoskeletal Disorders: No Hx Falls: No - GASTROINTESTINAL Hx Gastrointestinal Disorders: No - GENITOURINARY/GYNECOLOGICAL Hx Genitourinary Disorders: Yes Hx Prostate Cancer: Yes (radiation) - PSYCHIATRIC Hx Substance Use: No - SURGICAL HISTORY Hx Surgeries: No - ANESTHESIA Hx Anesthesia: No Hx Anesthesia Reactions: No Hx Malignant Hyperthermia: No Meds Allergies/Adverse Reactions: Allergies Allergy/AdvReac Type Severity Reaction Status Date / Time No Known Allergies Allergy Verified 07/25/17 17:22 Physical Exam - Constitutional Appears: Well - Head Exam Head Exam: ATRAUMATIC, NORMAL INSPECTION, NORMOCEPHALIC - Eye Exam Eye Exam: EOMI, Normal appearance, PERRL Pupil Exam: NORMAL ACCOMODATION, PERRL - ENT Exam ENT Exam: Mucous Membranes Moist, Normal Exam - Neck Exam Neck exam: Positive for: Normal Inspection - Respiratory Exam Respiratory Exam: Decreased Breath Sounds - Cardiovascular Exam Cardiovascular Exam: REGULAR RHYTHM, +S1, +S2 - GI/Abdominal Exam GI & Abdominal Exam: Diminished Bowel Sounds, Soft - Rectal Exam Rectal Exam: Deferred Results - Vital Signs Recent Vital Signs: Last Vital Signs Temp 98.3 F 07/26/17 07:51 Pulse 81 07/26/17 07:51 Resp 20 07/26/17 07:51 BP 122/70 07/26/17 07:51 Pulse Ox 97 07/26/17 07:51 - Labs Result Diagrams: 07/26/17 07:56 07/26/17 07:56 Labs: Laboratory Results - last 24 hr 07/26/17 07/26/17 07:56 07:56 WBC 0.7 L* RBC 2.57 L Hgb 7.9 L Hct 22.6 L MCV 87.8 MCH 30.9 MCHC 35.2 RDW 15.8 H Plt Count 54 L MPV 8.4 Neut % (Auto) 51.7 Lymph % (Auto) 41.9 H [place] % (Auto) 3.2 Eos % (Auto) 1.9 Baso % (Auto) 1.3 Neut # (Auto) 0.4 L Lymph # (Auto) 0.3 L [place] # (Auto) 0.0 Eos # (Auto) 0.0 Baso # (Auto) 0.0 Sodium 139 Potassium 3.4 L Chloride 106 Carbon Dioxide 23 Anion Gap 13 BUN 8 L Creatinine 0.6 L Est GFR ( Amer) > 60 Est GFR (Non-Af Amer) > 60 Random Glucose 93 Calcium 6.7 L Total Bilirubin 0.3 AST 34 ALT 14 L Alkaline Phosphatase 360 H Total Protein 6.2 L Albumin 3.1 L Globulin 3.1 Albumin/Globulin Ratio 1.0
[2017-07-26] MEDS: POLYETHYLENE GLYCOL 3350 17 GM/Dose PACKET PO SCH (17:41)
[2017-07-26] MEDS: Sodium Chloride 0.9% 1,000 ML IV SCH ×2 (17:42)
[2017-07-26] MEDS: Docusate-Senna 50 mg-8.6 mg Tab PO SCH (22:06)
[2017-07-27] MEDS: HYDROmorphone 0.5 mg/0.5 ml ISec IVP PRN ×4 (03:00→18:13)
[2017-07-27 07:21] LABS: HEMOGLOBIN 7.8 g/dL (12.0-18.0); MEAN PLATELET VOLUME 8.3 fL (7.2-11.7); NEUT # 0.9 K/uL (1.8-7.0); NRBC % 0.1 % (0.0-2.0)
[2017-07-27 07:35] LABS: BASO % 0.7 % (0.0-2.0); EOS % 0.9 % (0.0-4.0); LYMPH # 0.3 K/uL (1.0-4.3); LYMPH % 26.3 % (20.0-40.0); MEAN CELL VOLUME 88.8 fL (80.0-94.0); MEAN CORPUSCULAR HEMOGLOBIN 30.5 pg (27.0-31.0); MEAN CORPUSCULAR HGB CONC 34.4 g/dL (33.0-37.0); MONO % 0.9 % (0.0-10.0); NEUT % 71.2 % (50.0-75.0); RBC 2.56 Mil/uL (4.40-5.90); RED CELL DISTRIBUTION WIDTH 15.4 % (11.5-14.5)
[2017-07-27 07:49] LABS: BLOOD UREA NITROGEN 8 mg/dL (9-20); CALCIUM 7.2 mg/dl (8.6-10.4); GFR AFRICAN-AMERICAN > 60; GFR NON-AFRICAN AMERICAN > 60
[2017-07-27 07:55] LABS: WHITE BLOOD COUNT 1.3 K/uL (4.8-10.8)
[2017-07-27] MEDS: Enoxaparin 40 mg Syringe SC SCH (10:12)
[2017-07-27] MEDS: POLYETHYLENE GLYCOL 3350 17 GM/Dose PACKET PO SCH ×2 (10:12→17:37)
[2017-07-27] MEDS: Pantoprazole 40 mg EC Tab PO SCH (10:12)
[2017-07-27] MEDS: ENZALUTAMIDE 40 MG PO SCH (10:19)
--- NOTE | 2017-07-27 11:36 | CP.PCM.PN ---
<Ermelinda Hancock - Last Filed: 07/27/17 13:12> Subjective - Date & Time of Evaluation Date of Evaluation: 07/27/17 Time of Evaluation: 11:32 - Subjective Subjective: PGY2 progress note for Dr. Pavon 61 year old male with past medical history of prostate ca with mets to bone and chronic constipation is admitted for intractable abd pain. Patient was discharged 1 day before after being admitted for similar complaints. Patient was told to continue taking his laxatives for constipation relief. Patient developed abd pain after taking the laxative at home and having a BM. Since admission tho, pt states he is having regular nonbloody BM. He states his abdominal pain is minimal after he gets IV pain medication. Currently, denies having any abd pain, N/V/D/C, F/C, CP, SOB. Objective - Vital Signs/Intake and Output Vital Signs (last 24 hours): Temp Pulse Resp BP Pulse Ox 98.9 F 83 20 122/74 100 07/27/17 08:11 07/27/17 08:11 07/27/17 08:11 07/27/17 08:11 07/27/17 08:11 - Medications Medications: Current Medications Enoxaparin Sodium (Lovenox) 40 mg SC DAILY [facility] Last Admin: 07/27/17 10:12 Dose: 40 mg Home Med (Patient's Own Medication) 4 tab PO DAILY [facility] Last Admin: 07/27/17 10:19 Dose: 4 tab Hydromorphone HCl (Dilaudid) 2 mg IVP Q4H PRN PRN Reason: Pain, severe (8-10) Last Admin: 07/27/17 08:40 Dose: 2 mg Sodium Chloride (Sodium Chloride 0.9%) 1,000 mls @ 50 mls/hr IV .Q20H [facility] Last Admin: 07/26/17 17:42 Dose: 50 mls/hr Lactulose (Enulose) 10 gm PO HS [facility] Last Admin: 07/26/17 22:06 Dose: 10 gm Pantoprazole Sodium (Protonix Ec Tab) 40 mg PO DAILY [facility] Last Admin: 07/27/17 10:12 Dose: 40 mg Polyethylene Glycol (Miralax) 17 gm PO BID [facility] Last Admin: 07/27/17 10:12 Dose: 17 gm Senna/Docusate Sodium (Senokot S 50 Mg-8.6 Mg) 2 tab PO HS [facility] Last Admin: 07/26/17 22:06 Dose: 2 tab - Labs Labs: 07/27/17 07:12 07/27/17 07:12 - Constitutional Appears: Non-toxic, No Acute Distress - Head Exam Head Exam: ATRAUMATIC - ENT Exam ENT Exam: Mucous Membranes Moist - Respiratory Exam Respiratory Exam: Clear to Ausculation Bilateral. absent: Accessory Muscle Use , Rales, Rhonchi, Wheezes, Respiratory Distress - Cardiovascular Exam Cardiovascular Exam: REGULAR RHYTHM, +S1, +S2. absent: Gallop, Rubs, Murmur - GI/Abdominal Exam GI & Abdominal Exam: Soft, Normal Bowel Sounds. absent: Distended, Firm, Guarding, Rigid, Tenderness, Organomegaly - Extremities Exam Extremities Exam: absent: Pedal Edema, Tenderness - Neurological Exam Neurological Exam: Alert, Awake, Oriented x3 - Psychiatric Exam Psychiatric exam: Normal Affect, Normal Mood - Skin Skin Exam: Dry, Intact, Normal Color, Warm Assessment and Plan - Assessment and Plan (Free Text) Assessment: 61 year old male with past medical history of prostate ca with mets ot bone, chronic constipation and neutropenia is admitted for intractable abd pain likel 2/2 constipation Abdominal pain - Abd series on admission was negative - GI was consulted. Recommended continuing bowel regimen with narcotics and outpt colonscopy. Have signed off as pt follows up with outpt GI specialist from [place] - Continue liralax, senokot and lactulose Prostate ca - Continue Xtandi 4 tabs po qd - pt is followed by Dr. Recinos for tx - Continue pain management with Diluadid 2 mg IVP q4 - Pt follows with outpt pain management doc and is in process of getting pain medications for home Pancytopenia - likely due to prostate ca tx - will continue to monitor - WBC count is 1.3 today. Neutorphils 71.2% with no bands noted. - Pt received granix 480 yesterday - currently on neutropenic precautions - Pt afebrile - Hgb is 7.8, platelets 45 - Will continue to monitor for bleeding - Heme/onc, Dr. Recinos is consulted Prophylaxis - Lovenox sc - SCDs - no GI indications All orders and management per Dr. Pavon <Vazquez Pavon S - Last Filed: 07/27/17 18:02> Objective - Vital Signs/Intake and Output Vital Signs (last 24 hours): Temp Pulse Resp BP Pulse Ox 98.7 F 77 20 112/72 98 07/27/17 16:00 07/27/17 16:00 07/27/17 16:00 07/27/17 16:00 07/27/17 16:00 - Medications Medications: Current Medications Enoxaparin Sodium (Lovenox) 40 mg SC DAILY [facility] Fentanyl (Duragesic) 1 patch TD Q72H [facility] Last Admin: 07/27/17 14:26 Dose: 1 patch Home Med (Patient's Own Medication) 4 tab PO DAILY [facility] Last Admin: 07/27/17 10:19 Dose: 4 tab Hydromorphone HCl (Dilaudid) 2 mg IVP Q4H PRN PRN Reason: Pain, severe (8-10) Last Admin: 07/27/17 12:55 Dose: 2 mg Sodium Chloride (Sodium Chloride 0.9%) 1,000 mls @ 50 mls/hr IV .Q20H [facility] Last Admin: 07/27/17 12:36 Dose: Not Given Lactulose (Enulose) 10 gm PO HS [facility] Last Admin: 07/26/17 22:06 Dose: 10 gm Pantoprazole Sodium (Protonix Ec Tab) 40 mg PO DAILY [facility] Last Admin: 07/27/17 10:12 Dose: 40 mg Polyethylene Glycol (Miralax) 17 gm PO BID [facility] Last Admin: 07/27/17 17:37 Dose: 17 gm Senna/Docusate Sodium (Senokot S 50 Mg-8.6 Mg) 2 tab PO [facility] Last Admin: 07/26/17 22:06 Dose: 2 tab - Labs Labs: 07/27/17 07:12 07/27/17 07:12 Attending/Attestation - Attestation I have personally seen and examined this patient.: Yes I have fully participated in the care of the patient.: Yes I have reviewed all pertinent clinical information, including history, physical exam and plan: Yes
[2017-07-27] MEDS: Sodium Chloride 0.9% 1,000 ML IV SCH (12:36)
[2017-07-27] MEDS ORDERED: Enoxaparin 40 mg Syringe SC SCH (13:15)
[2017-07-27] MEDS ORDERED: Potassium Chloride 20 mEq ER Tab PO ONE (14:16)
--- NOTE | 2017-07-27 16:26 | CP.PCM.PN ---
Subjective - Date & Time of Evaluation Date of Evaluation: 07/27/17 Time of Evaluation: 08:20 - Subjective Subjective: clinically same Objective - Vital Signs/Intake and Output Vital Signs (last 24 hours): Temp Pulse Resp BP Pulse Ox 98.7 F 77 20 112/72 98 07/27/17 16:00 07/27/17 16:00 07/27/17 16:00 07/27/17 16:00 07/27/17 16:00 - Medications Medications: Current Medications Enoxaparin Sodium (Lovenox) 40 mg SC DAILY [facility] Fentanyl (Duragesic) 1 patch TD Q72H [facility] Last Admin: 07/27/17 14:26 Dose: 1 patch Home Med (Patient's Own Medication) 4 tab PO DAILY [facility] Last Admin: 07/27/17 10:19 Dose: 4 tab Hydromorphone HCl (Dilaudid) 2 mg IVP Q4H PRN PRN Reason: Pain, severe (8-10) Last Admin: 07/27/17 12:55 Dose: 2 mg Sodium Chloride (Sodium Chloride 0.9%) 1,000 mls @ 50 mls/hr IV .Q20H [facility] Last Admin: 07/27/17 12:36 Dose: Not Given Lactulose (Enulose) 10 gm PO [facility] Last Admin: 07/26/17 22:06 Dose: 10 gm Pantoprazole Sodium (Protonix Ec Tab) 40 mg PO DAILY [facility] Last Admin: 07/27/17 10:12 Dose: 40 mg Polyethylene Glycol (Miralax) 17 gm PO BID [facility] Last Admin: 07/27/17 10:12 Dose: 17 gm Senna/Docusate Sodium (Senokot S 50 Mg-8.6 Mg) 2 tab PO [facility] Last Admin: 07/26/17 22:06 Dose: 2 tab - Labs Labs: 07/27/17 07:12 07/27/17 07:12 - Constitutional Appears: Well - Head Exam Head Exam: ATRAUMATIC, NORMAL INSPECTION, NORMOCEPHALIC - Eye Exam Eye Exam: EOMI, Normal appearance, PERRL Pupil Exam: NORMAL ACCOMODATION, PERRL - ENT Exam ENT Exam: Mucous Membranes Moist, Normal Exam - Neck Exam Neck Exam: Full ROM, Normal Inspection. absent: Lymphadenopathy - Respiratory Exam Respiratory Exam: Decreased Breath Sounds - Cardiovascular Exam Cardiovascular Exam: REGULAR RHYTHM, +S1, +S2 - GI/Abdominal Exam GI & Abdominal Exam: Soft, Diminished Bowel Sounds - Rectal Exam Rectal Exam: Deferred Assessment and Plan - Assessment and Plan (Free Text) Plan: Abdominal pain - Abd series on admission was negative - GI was consulted. Recommended continuing bowel regimen with narcotics and outpt colonscopy. Have signed off as pt follows up with outpt GI specialist from [place] - Continue liralax, senokot and lactulose Prostate ca - Continue Xtandi 4 tabs po qd - pt is followed by Dr. Recinos for tx - Continue pain management with Diluadid 2 mg IVP q4 - Pt follows with outpt pain management doc and is in process of getting pain medications for home Pancytopenia - likely due to prostate ca tx - will continue to monitor - WBC count is 1.3 today. Neutorphils 71.2% with no bands noted. - Pt received granix 480 yesterday - currently on neutropenic precautions - Pt afebrile - Hgb is 7.8, platelets 45 - Will continue to monitor for bleeding - Heme/onc, Dr. Recinos is consulted Prophylaxis - Lovenox sc - SCDs - no GI indications Discussed with the daughter at length Continue fentanyl patch at 75 mics Monitor WBC and monitor white cell count Status post Neupogen As ordered
[2017-07-27] MEDS: Docusate-Senna 50 mg-8.6 mg Tab PO SCH (21:50)
[2017-07-28] MEDS: HYDROmorphone 0.5 mg/0.5 ml ISec IVP PRN ×3 (00:05→13:59)
[2017-07-28 06:43] LABS: BASO % 0.4 % (0.0-2.0); EOS % 1.2 % (0.0-4.0); HEMOGLOBIN 8.5 g/dL (12.0-18.0); LYMPH # 0.6 K/uL (1.0-4.3); MEAN CORPUSCULAR HEMOGLOBIN 30.7 pg (27.0-31.0); MEAN CORPUSCULAR HGB CONC 34.9 g/dL (33.0-37.0); MEAN PLATELET VOLUME 7.9 fL (7.2-11.7); MONO % 1.2 % (0.0-10.0); NEUT % 62.2 % (50.0-75.0); NRBC % 0.4 % (0.0-2.0); RBC 2.76 Mil/uL (4.40-5.90); RED CELL DISTRIBUTION WIDTH 15.7 % (11.5-14.5)
[2017-07-28 06:53] LABS: WHITE BLOOD COUNT 1.6 K/uL (4.8-10.8)
[2017-07-28 06:55] LABS: ALBUMIN 3.4 g/dL (3.5-5.0); ALT/SGPT 18 U/L (21-72); AST/SGOT 22 U/L (17-59); BLOOD UREA NITROGEN 7 mg/dL (9-20); CALCIUM 7.7 mg/dl (8.6-10.4); GFR AFRICAN-AMERICAN > 60; GFR NON-AFRICAN AMERICAN > 60
[2017-07-28] MEDS: Sodium Chloride 0.9% 1,000 ML IV SCH (08:04)
[2017-07-28] MEDS: POLYETHYLENE GLYCOL 3350 17 GM/Dose PACKET PO SCH ×2 (09:35→17:30)
[2017-07-28] MEDS: Pantoprazole 40 mg EC Tab PO SCH (09:35)
[2017-07-28] MEDS: Enoxaparin 40 mg Syringe SC SCH (09:36)
[2017-07-28] MEDS: ENZALUTAMIDE 40 MG PO SCH (09:36)
--- NOTE | 2017-07-28 16:05 | CP.PCM.PN ---
Subjective - Date & Time of Evaluation Date of Evaluation: 07/28/17 Time of Evaluation: 16:00 - Subjective Subjective: Progress note. Attending: Dr. Pavon. Pt seen and examined at bedside. No acute distress. no events overnight. No fevers, chills, vomiting, diarrhea. No complaints at this time. Objective - Vital Signs/Intake and Output Vital Signs (last 24 hours): Temp Pulse Resp BP Pulse Ox 98.5 F 89 20 121/77 98 07/28/17 08:00 07/28/17 08:00 07/28/17 08:00 07/28/17 08:00 07/28/17 08:00 Intake and Output: 07/28/17 07/28/17 06:59 18:59 Intake Total 1130 880 Balance 1130 880 - Medications Medications: Current Medications Enoxaparin Sodium (Lovenox) 40 mg SC DAILY [facility] Last Admin: 07/28/17 09:36 Dose: 40 mg Fentanyl (Duragesic) 1 patch TD Q72H [facility] Last Admin: 07/27/17 14:26 Dose: 1 patch Home Med (Patient's Own Medication) 4 tab PO DAILY [facility] Last Admin: 07/28/17 09:36 Dose: 4 tab Hydromorphone HCl (Dilaudid) 2 mg IVP Q4H PRN PRN Reason: Pain, severe (8-10) Last Admin: 07/28/17 13:59 Dose: 2 mg Sodium Chloride (Sodium Chloride 0.9%) 1,000 mls @ 50 mls/hr IV .Q20H [facility] Last Admin: 07/28/17 08:04 Dose: 50 mls/hr Lactulose (Enulose) 10 gm PO [facility] Last Admin: 07/27/17 21:50 Dose: 10 gm Pantoprazole Sodium (Protonix Ec Tab) 40 mg PO DAILY [facility] Last Admin: 07/28/17 09:35 Dose: 40 mg Polyethylene Glycol (Miralax) 17 gm PO BID [facility] Last Admin: 07/28/17 09:35 Dose: 17 gm Senna/Docusate Sodium (Senokot S 50 Mg-8.6 Mg) 2 tab PO [facility] Last Admin: 07/27/17 21:50 Dose: 2 tab - Labs Labs: 07/28/17 06:29 07/28/17 06:29 - Constitutional Appears: Non-toxic, No Acute Distress, Chronically Ill - Head Exam Head Exam: ATRAUMATIC, NORMAL INSPECTION, NORMOCEPHALIC - Eye Exam Eye Exam: EOMI - ENT Exam ENT Exam: Mucous Membranes Moist - Neck Exam Neck Exam: Full ROM, Normal Inspection - Respiratory Exam Respiratory Exam: NORMAL BREATHING PATTERN. absent: Respiratory Distress - Cardiovascular Exam Cardiovascular Exam: +S1, +S2 - GI/Abdominal Exam GI & Abdominal Exam: Soft, Normal Bowel Sounds. absent: Tenderness - Back Exam Back Exam: NORMAL INSPECTION - Neurological Exam Neurological Exam: Alert, Awake, Oriented x3 - Psychiatric Exam Psychiatric exam: Normal Affect, Normal Mood - Skin Skin Exam: Dry, Intact, Normal Color, Warm Assessment and Plan - Assessment and Plan (Free Text) Assessment: This is a 61 year old male with past medical history of prostate cancer with metastasis to bone, chronic constipation and neutropenia is admitted for intractable abdominal pain likely secondary to constipation Abdominal pain - Abd series on admission was negative - GI was consulted. Recommended continuing bowel regimen with narcotics and outpt colonscopy. Have signed off as pt follows up with outpt GI specialist from [place] - Continue liralax, senokot and lactulose Prostate ca - Continue Xtandi 4 tabs po qd - pt is followed by Dr. Recinos for tx - Continue pain management with Diluadid 2 mg IVP q4 -also getting fentanyl patch TD - Pt follows with outpt pain management doc and is in process of getting pain medications for home Pancytopenia - likely due to prostate ca tx - will continue to monitor - pt is still leukopenic - Pt received granix 480 - currently on neutropenic precautions - Pt afebrile - Will continue to monitor for bleeding - Heme/onc, Dr. Recinos is consulted Prophylaxis - Lovenox sc - SCDs - protonix 40 mg daily All orders and management per Dr. Pavon
--- NOTE | 2017-07-28 16:26 | CP.PCM.PN ---
Subjective - Date & Time of Evaluation Date of Evaluation: 07/28/17 Time of Evaluation: 08:00 - Subjective Subjective: clinically same Objective - Vital Signs/Intake and Output Vital Signs (last 24 hours): Temp Pulse Resp BP Pulse Ox 98.5 F 89 20 121/77 98 07/28/17 08:00 07/28/17 08:00 07/28/17 08:00 07/28/17 08:00 07/28/17 08:00 Intake and Output: 07/28/17 07/28/17 06:59 18:59 Intake Total 1130 880 Balance 1130 880 - Medications Medications: Current Medications Enoxaparin Sodium (Lovenox) 40 mg SC DAILY [facility] Last Admin: 07/28/17 09:36 Dose: 40 mg Fentanyl (Duragesic) 1 patch TD Q72H [facility] Last Admin: 07/27/17 14:26 Dose: 1 patch Home Med (Patient's Own Medication) 4 tab PO DAILY [facility] Last Admin: 07/28/17 09:36 Dose: 4 tab Hydromorphone HCl (Dilaudid) 2 mg IVP Q4H PRN PRN Reason: Pain, severe (8-10) Last Admin: 07/28/17 13:59 Dose: 2 mg Sodium Chloride (Sodium Chloride 0.9%) 1,000 mls @ 50 mls/hr IV .Q20H [facility] Last Admin: 07/28/17 08:04 Dose: 50 mls/hr Lactulose (Enulose) 10 gm PO [facility] Last Admin: 07/27/17 21:50 Dose: 10 gm Pantoprazole Sodium (Protonix Ec Tab) 40 mg PO DAILY [facility] Last Admin: 07/28/17 09:35 Dose: 40 mg Polyethylene Glycol (Miralax) 17 gm PO BID [facility] Last Admin: 07/28/17 09:35 Dose: 17 gm Senna/Docusate Sodium (Senokot S 50 Mg-8.6 Mg) 2 tab PO [facility] Last Admin: 07/27/17 21:50 Dose: 2 tab - Labs Labs: 07/28/17 06:29 07/28/17 06:29 - Constitutional Appears: Well - Head Exam Head Exam: ATRAUMATIC, NORMAL INSPECTION, NORMOCEPHALIC - Eye Exam Eye Exam: EOMI, Normal appearance, PERRL Pupil Exam: NORMAL ACCOMODATION, PERRL - ENT Exam ENT Exam: Mucous Membranes Moist, Normal Exam - Neck Exam Neck Exam: Full ROM, Normal Inspection. absent: Lymphadenopathy - Respiratory Exam Respiratory Exam: Decreased Breath Sounds - Cardiovascular Exam Cardiovascular Exam: REGULAR RHYTHM, +S1, +S2 - GI/Abdominal Exam GI & Abdominal Exam: Soft, Diminished Bowel Sounds - Rectal Exam Rectal Exam: Deferred
--- NOTE | 2017-07-28 17:34 | CP.PCM.CON ---
Past Patient History - Past Medical History & Family History Past Medical History?: Yes - Past Social History Smoking Status: Never Smoked - CARDIAC Hx Cardiac Disorders: No - PULMONARY Hx Respiratory Disorders: No - NEUROLOGICAL Hx Neurological Disorder: No - HEENT Hx HEENT Problems: No - RENAL Hx Chronic Kidney Disease: No - ENDOCRINE/METABOLIC Hx Endocrine Disorders: No - HEMATOLOGICAL/ONCOLOGICAL Hx Blood Disorders: Yes Hx Blood Transfusions: Yes Hx Blood Transfusion Reaction: No - INTEGUMENTARY Hx Dermatological Problems: No - MUSCULOSKELETAL/RHEUMATOLOGICAL Hx Musculoskeletal Disorders: No Hx Falls: No - GASTROINTESTINAL Hx Gastrointestinal Disorders: No - GENITOURINARY/GYNECOLOGICAL Hx Genitourinary Disorders: Yes Hx Prostate Cancer: Yes (radiation) - PSYCHIATRIC Hx Psychophysiologic Disorder: No Hx Substance Use: No - SURGICAL HISTORY Hx Surgeries: No - ANESTHESIA Hx Anesthesia: No Hx Anesthesia Reactions: No Hx Malignant Hyperthermia: No Has any member of the family had a problem w/ anesthesia?: No Meds Allergies/Adverse Reactions: Allergies Allergy/AdvReac Type Severity Reaction Status Date / Time No Known Allergies Allergy Verified 07/25/17 17:22 - Medications Medications: Current Medications Enoxaparin Sodium (Lovenox) 40 mg SC DAILY [facility] Last Admin: 07/28/17 09:36 Dose: 40 mg Fentanyl (Duragesic) 1 patch TD Q72H [facility] Last Admin: 07/27/17 14:26 Dose: 1 patch Home Med (Patient's Own Medication) 4 tab PO DAILY [facility] Last Admin: 07/28/17 09:36 Dose: 4 tab Hydromorphone HCl (Dilaudid) 2 mg IVP Q4H PRN PRN Reason: Pain, severe (8-10) Last Admin: 07/28/17 13:59 Dose: 2 mg Sodium Chloride (Sodium Chloride 0.9%) 1,000 mls @ 50 mls/hr IV .Q20H [facility] Last Admin: 07/28/17 08:04 Dose: 50 mls/hr Lactulose (Enulose) 10 gm PO HS [facility] Last Admin: 07/27/17 21:50 Dose: 10 gm Pantoprazole Sodium (Protonix Ec Tab) 40 mg PO DAILY [facility] Last Admin: 07/28/17 09:35 Dose: 40 mg Polyethylene Glycol (Miralax) 17 gm PO BID [facility] Last Admin: 07/28/17 17:30 Dose: 17 gm Senna/Docusate Sodium (Senokot S 50 Mg-8.6 Mg) 2 tab PO HS [facility] Last Admin: 07/27/17 21:50 Dose: 2 tab Results - Vital Signs Recent Vital Signs: Last Vital Signs Temp 98.8 F 07/28/17 15:15 Pulse 78 07/28/17 15:15 Resp 20 07/28/17 15:15 BP 101/64 07/28/17 15:15 Pulse Ox 97 07/28/17 15:15 - Labs Result Diagrams: 07/28/17 06:29 07/28/17 06:29 Labs: Laboratory Results - last 24 hr 07/28/17 07/28/17 06:29 06:29 WBC 1.6 L* RBC 2.76 L Hgb 8.5 L Hct 24.2 L MCV 88.0 MCH 30.7 MCHC 34.9 RDW 15.7 H Plt Count 60 L MPV 7.9 Neut % (Auto) 62.2 Lymph % (Auto) 35.0 [place] % (Auto) 1.2 Eos % (Auto) 1.2 Baso % (Auto) 0.4 Neut # (Auto) 1.0 L Lymph # (Auto) 0.6 L [place] # (Auto) 0.0 Eos # (Auto) 0.0 Baso # (Auto) 0.0 Sodium 138 Potassium 4.0 Chloride 106 Carbon Dioxide 24 Anion Gap 13 BUN 7 L Creatinine 0.6 L Est GFR ( Amer) > 60 Est GFR (Non-Af Amer) > 60 Random Glucose 101 Calcium 7.7 L Total Bilirubin 0.7 AST 22 ALT 18 L D Alkaline Phosphatase 391 H Total Protein 6.8 Albumin 3.4 L Globulin 3.4 Albumin/Globulin Ratio 1.0
[2017-07-28] MEDS: Docusate-Senna 50 mg-8.6 mg Tab PO SCH (21:06)
[2017-07-29] MEDS: HYDROmorphone 0.5 mg/0.5 ml ISec IVP PRN ×3 (00:44→14:13)
[2017-07-29 07:35] LABS: BASO % 1.1 % (0.0-2.0); EOS % 1.1 % (0.0-4.0); HEMOGLOBIN 7.6 g/dL (12.0-18.0); LYMPH # 0.3 K/uL (1.0-4.3); LYMPH % 31.9 % (20.0-40.0); MEAN CELL VOLUME 87.7 fL (80.0-94.0); MEAN CORPUSCULAR HEMOGLOBIN 30.2 pg (27.0-31.0); MEAN CORPUSCULAR HGB CONC 34.4 g/dL (33.0-37.0); MEAN PLATELET VOLUME 8.2 fL (7.2-11.7); MONO % 1.8 % (0.0-10.0); NEUT # 0.6 K/uL (1.8-7.0); NEUT % 64.1 % (50.0-75.0); NRBC % 0.9 % (0.0-2.0); RBC 2.51 Mil/uL (4.40-5.90); RED CELL DISTRIBUTION WIDTH 15.8 % (11.5-14.5)
[2017-07-29 07:49] LABS: ALBUMIN 3.2 g/dL (3.5-5.0); ALT/SGPT 7 U/L (21-72); AST/SGOT 19 U/L (17-59); BLOOD UREA NITROGEN 6 mg/dL (9-20); CALCIUM 7.5 mg/dl (8.6-10.4); GFR AFRICAN-AMERICAN > 60; GFR NON-AFRICAN AMERICAN > 60
[2017-07-29] MEDS: Enoxaparin 40 mg Syringe SC SCH (10:07)
[2017-07-29] MEDS: ENZALUTAMIDE 40 MG PO SCH (10:07)
[2017-07-29] MEDS: Pantoprazole 40 mg EC Tab PO SCH (10:07)
[2017-07-29] MEDS: POLYETHYLENE GLYCOL 3350 17 GM/Dose PACKET PO SCH (10:07)
--- NOTE | 2017-07-29 16:24 | CP.PCM.PN ---
Objective - Vital Signs/Intake and Output Vital Signs (last 24 hours): Temp Pulse Resp BP Pulse Ox 98.8 F 84 20 122/73 96 07/29/17 08:04 07/29/17 08:04 07/29/17 08:04 07/29/17 08:04 07/29/17 08:04 Intake and Output: 07/29/17 07/29/17 06:59 18:59 Intake Total 1365 400 Balance 1365 400 - Medications Medications: Current Medications Enoxaparin Sodium (Lovenox) 40 mg SC DAILY [facility] Last Admin: 07/29/17 10:07 Dose: 40 mg Fentanyl (Duragesic) 1 patch TD Q72H [facility] Last Admin: 07/27/17 14:26 Dose: 1 patch Home Med (Patient's Own Medication) 4 tab PO DAILY [facility] Last Admin: 07/29/17 10:07 Dose: 4 tab Hydromorphone HCl (Dilaudid) 2 mg IVP Q4H PRN PRN Reason: Pain, severe (8-10) Last Admin: 07/29/17 14:13 Dose: 2 mg Lactulose (Enulose) 10 gm PO [facility] Last Admin: 07/28/17 21:05 Dose: 10 gm Pantoprazole Sodium (Protonix Ec Tab) 40 mg PO DAILY [facility] Last Admin: 07/29/17 10:07 Dose: 40 mg Polyethylene Glycol (Miralax) 17 gm PO BID [facility] Last Admin: 07/29/17 10:07 Dose: 17 gm Senna/Docusate Sodium (Senokot S 50 Mg-8.6 Mg) 2 tab PO [facility] Last Admin: 07/28/17 21:06 Dose: 2 tab - Labs Labs: 07/29/17 07:20 07/29/17 07:20 Assessment and Plan - Assessment and Plan (Free Text) Assessment: 61 year old male with metaststic prostate cancer, admitted with abdominal pain , seen and examined. Alert, no acute distress, denies abdominal pain now. Discussed with DR Recinos and DR Osmin Pavon, plan to discharge home today to continue with his GI appointment at [facility] as per patient. Advised to follow up with his PMD in 1 week. Prescriptions for fentanyl patch and percocet 10 tabs given. Patient and daughter verbalized understanding. Planning to take him home today.
[2017-07-29 16:46] VITALS: BP 126/75; PULSE 78; TEMP 99.1; O2SAT 97
--- NOTE | 2017-07-29 19:19 | CP.PCM.PN ---
Subjective - Date & Time of Evaluation Date of Evaluation: 07/29/17 Objective - Vital Signs/Intake and Output Vital Signs (last 24 hours): Temp Pulse Resp BP Pulse Ox 99.1 F 78 20 126/75 97 07/29/17 15:00 07/29/17 15:00 07/29/17 15:00 07/29/17 15:00 07/29/17 15:00 Intake and Output: 07/29/17 07/30/17 18:59 06:59 Intake Total 400 Balance 400 - Labs Labs: 07/29/17 07:20 07/29/17 07:20
== END 2017-07-29 17:07 | disposition home or self-care (01) | DRG 182 ==
LOC: C.ER 13:18 → C.9E 13:48 → C.3T 15:03 → OBSVTOIN 07-27 22:40
PROVIDERS: ADMIT Internal Medicine Nephrology; ATTEND Internal Medicine Nephrology
DX: K59.03 Drug induced constipation (principal); C61 Malignant neoplasm of prostate; C79.51 Secondary malignant neoplasm of bone; D61.818 Other pancytopenia; T40.2X5D Adverse effect of other opioids, subsequent encounter

== ENCOUNTER 2017-08-04 09:32 | Emergency (ER) | payer MEDICAID ==
[2017-08-04 10:32] VITALS: RESP 16; O2SAT 98
--- NOTE | 2017-08-04 10:35 | C.PDOC ---
History Of Present Illness 61yo male with history of metastatic prostate cancer, presents to ED with complaints of chest pain for the past 3 days. Patient states he feels like there is "gas in chest" and has been taking omeprazole with no relief. Patient states the pain now is more on the left side of his chest and radiates to his back. Patient reports associated shortness of breath with exertion and additionally he feels constipated and has been having small bowel movements. Patient denies any other medical complaints. PMD: Dr. King Recinos Time Seen by Provider: 08/04/17 09:57 Chief Complaint (Nursing): Chest Pain History Per: Patient History/Exam Limitations: no limitations Onset/Duration Of Symptoms: Days Current Symptoms Are (Timing): Still Present Quality: Other (gas) Associated Symptoms: Dyspnea (with exertion). denies: Nausea, Diaphoresis, Syncope Additional History Per: Patient Past Medical History Reviewed: Historical Data, Nursing Documentation, Vital Signs Vital Signs: Last Vital Signs Temp 98.2 F 08/04/17 13:37 Pulse 70 08/04/17 13:37 Resp 16 08/04/17 13:37 BP 118/70 08/04/17 13:37 Pulse Ox 98 08/04/17 13:37 - Medical History PMH: Malignancy (metastatic prostate cancer) Denies: Chronic Kidney Disease Surgical History: No Surg Hx Family History: States: No Known Family Hx - Social History Hx Tobacco Use: No Hx Alcohol Use: No Hx Substance Use: No - Immunization History Hx Tetanus Toxoid Vaccination: No Hx Influenza Vaccination: No Hx Pneumococcal Vaccination: No Review Of Systems Except As Marked, All Systems Reviewed And Found Negative. Constitutional: Negative for: Fever, Chills Cardiovascular: Positive for: Chest Pain ("gas pains") Respiratory: Positive for: SOB with Excertion Gastrointestinal: Positive for: Constipation Musculoskeletal: Positive for: Back Pain Physical Exam - Physical Exam Appears: Non-toxic, Chronically Ill Skin: Warm, Dry, Ecchymosis (ecchymotic lesions to bilateral arms) Head: Atraumatic, Normacephalic Eye(s): bilateral: Normal Inspection Oral Mucosa: Moist Neck: Normal ROM, Supple Chest: Symmetrical, No Tenderness Cardiovascular: Rhythm Regular, No Murmur Respiratory: Normal Breath Sounds, No Rales, No Rhonchi, No Wheezing Gastrointestinal/Abdominal: Soft, Tenderness (mild diffuse tenderness), No Guarding, No Rebound Back: Normal Inspection, No CVA Tenderness, No Vertebral Tenderness, No Paraspinal Tenderness Extremity: Normal ROM, No Pedal Edema, No Calf Tenderness Neurological/Psych: Oriented x3 ED Course And Treatment - Laboratory Results Result Diagrams: 08/04/17 10:43 08/04/17 10:43 Lab Interpretation: No Acute Changes ECG: Interpreted By Me, Viewed By Me ECG Rhythm: Sinus Rhythm Rate From EC O2 Sat by Pulse Oximetry: 98 (RA) Pulse Ox Interpretation: Normal Interpretation Of Abnormal: Nonspecific T wave abnormality - CT Scan/US chest Other Rad Studies (CT/US): Read By Radiologist, Radiology Report Reviewed CT/US Interpretation: Accession No. : [id number]. Patient Name / ID : ELSY LLOYD / [id number]. Exam Date : 08/04/2017 11:54:17 ( Approved ). Study Comment : Sex / Age : M / 61Y. Creator : Marga Will. Dictator : Hermes Bedoya MD. Oil Expeller Operator : Security And Privacy Consultant : Hermes Bedoya MD. Approver2 : Report Date : 08/04/2017 12:02:18. My Comment : . PROCEDURE: CT Chest with contrast (Pulmonary Angiogram). HISTORY: SOB and chest pain, h.o ca mets. COMPARISON: None available. TECHNIQUE: Axial computed tomography images were obtained of the chest in the pulmonary arterial phase of enhancement. Coronal and sagittal reformatted images were created and reviewed. Intravenous contrast dose: 100 cc Visipaque 320 contrast. Radiation dose: Total exam DLP = 427.25 mGy-cm. This CT exam was performed using one or more of the following dose reduction techniques: Automated exposure control, adjustment of the mA and/or kV according to patient size, and/or use of iterative reconstruction technique. FINDINGS: PULMONARY ARTERIES: The visualized pulmonary trunk, right and left main, lobar, segmental and proximal subsegmental branches of the pulmonary arteries are well opacified with no definitive filling defects seen to suggest acute pulmonary embolus. Pulmonary trunk measures approximately 21.6 mm. AORTA: No acute findings. No thoracic aortic aneurysm. The ascending thoracic aorta measures approximately 3.25 cm and descending thoracic aorta measures approximately 2.1 cm. LUNGS: Multiple too numerous to count, varying sized round and elliptical shaped parenchymal nodules are present throughout both upper and lower lobes consistent with metastatic deposits. PLEURAL SPACES: Unremarkable. No effusion or pneumothorax. HEART: Heart size is within range of normal. No significant pericardial effusion. LYMPH NODES: Cerebral of mediastinal lymph nodes are present the largest in the AP window region measuring approximately 15 mm. . Multiple of mildly enlarged right hilar lymph nodes are present with 2 adjacent lymph nodes best seen on axial series 3, image number [id number] that measures approximately 12.5 and 14.7 mm anterioranterior and posterior in location respectively. Enlarged posterior mediastinal lymph node in the as ago esophageal recess measures approximately 2.1 cm. Left-sided hilar lymph node measuring approximately 15 mm best seen on axial series 3, image number 50. . There is a small hiatal hernia with wall thickening of the distal esophagus that could be due to protrusion gastric mucosa. Esophagitis not excluded. Central airways midline and patent. No large central endoluminal lesions. BONES , CHEST WALL: Diffuse sclerotic metastasis are seen throughout the thoracic and upper lumbar spine as well as sternum and multiple bilateral ribs. . OTHER FINDINGS: Unremarkable. IMPRESSION: No evidence of acute central pulmonary embolus. Multiple multiple (too numerous count) varying sized metastatic parenchymal nodules throughout both upper and lower lobes. Mediastinal and hilar adenopathy. Diffuse sclerotic bone metastasis. Medical Decision Making Medical Decision Making: Prior records reviewed patient has multiple ER visits for intractable pain. Most recent admission, 07/25 and discharged 07/29 Plan: -- Labs -- Urinalysis -- Morphine 4mg IV -- CT Angio Chest PE Protocol Labs reviewed with no acute changes to labs CT IMPRESSION: No evidence of acute central pulmonary embolus. Multiple multiple (too numerous count) varying sized metastatic parenchymal nodules throughout both upper and lower lobes. Mediastinal and hilar adenopathy. Diffuse sclerotic bone metastasis. Patient continued to have pain but all over and was asking for Dilaudid. Order placed I discussed results with patient and he is feeling better. He is asking for medication to help with constipation. Denies any SOB or chest pain at this time. Patient is stable for discharge and instructed to follow up with his doctor Disposition Counseled Patient/Family Regarding: Diagnosis, Need For Followup, Rx Given - Disposition Referrals: King Recinos MD [Staff Provider] - Disposition: HOME/ ROUTINE Disposition Time: 13:16 Condition: STABLE Additional Instructions: Vaya a baker mdico o la clnica en 2-5 little sin falta, para mas evaluacin. [place] los medicamentos kellie indicado. Volver a la luis fernando de emergencia en cualquier momento si los sntomas persisten o empeoran. Prescriptions: Dicyclomine [Bentyl] 10 mg PO QID #20 cap Docusate [Colace] 100 mg PO TID #60 cap Sennosides [Laxative Pills Maximum Strength] 25 mg PO PRN PRN #12 tab PRN Reason: Constipation Instructions: Chronic Pain (DC) Print Language: DIVEHI - POA Present On Arrival: None - Clinical Impression Clinical Impression: Chest discomfort, Constipation, Metastatic malignant neoplasm to prostate, Chronic pain - PA / MORTGAGE OR LOAN UNDERWRITER / Resident Statement MD/DO has reviewed & agrees with the documentation as recorded. - Scribe Statement The provider has reviewed the documentation as recorded by the Scribe (Luba Gates) Provider Attestation: All medical record entries made by the Scribe were at my direction and personally dictated by me. I have reviewed the chart and agree that the record accurately reflects my personal performance of the history, physical exam, medical decision making, and the department course for this patient. I have also personally directed, reviewed, and agree with the discharge instructions and disposition.
[2017-08-04 10:47] LABS: BASO % 0.5 % (0.0-2.0); EOS % 0.3 % (0.0-4.0); HEMOGLOBIN 8.4 g/dL (12.0-18.0); LYMPH # 0.4 K/uL (1.0-4.3); LYMPH % 29.8 % (20.0-40.0); MEAN CELL VOLUME 88.6 fL (80.0-94.0); MEAN CORPUSCULAR HEMOGLOBIN 30.1 pg (27.0-31.0); MEAN CORPUSCULAR HGB CONC 33.9 g/dL (33.0-37.0); MEAN PLATELET VOLUME 8.6 fL (7.2-11.7); MONO % 2.4 % (0.0-10.0); NEUT # 0.9 K/uL (1.8-7.0); NRBC % 2.5 % (0.0-2.0); RBC 2.79 Mil/uL (4.40-5.90); RED CELL DISTRIBUTION WIDTH 15.9 % (11.5-14.5)
[2017-08-04 10:53] LABS: WHITE BLOOD COUNT 1.3 K/uL (4.8-10.8)
[2017-08-04] MEDS ORDERED: Morphine 4 MG/ML VIAL ONE (11:00)
[2017-08-04 11:04] LABS: ALB/GLOB RATIO 1.2 (1.0-2.1); ALBUMIN 4.2 g/dL (3.5-5.0); ALT/SGPT 15 U/L (21-72); AST/SGOT 72 U/L (17-59); BLOOD UREA NITROGEN 21 mg/dL (9-20); CALCIUM 7.6 mg/dl (8.6-10.4); GFR AFRICAN-AMERICAN > 60; GFR NON-AFRICAN AMERICAN > 60
[2017-08-04 11:07] LABS: B-TYPE NATRIURETIC PEPTIDE 464 pg/mL (0-900)
[2017-08-04 11:26] LABS: D DIMER > 5250 ng/mlDDU (0-243); INR 1.2; PARTIAL THROMBOPLASTIN TIME 21 SECONDS (21-34); PROTHROMBIN TIME 12.7 SECONDS (9.7-12.2)
[2017-08-04] MEDS ORDERED: Iodixanol 320 MG/ML 100 ML BOTTLE IV ONE (11:40)
[2017-08-04 12:13] LABS: URINE BILIRUBIN NEGATIVE (NEGATIVE); URINE BLOOD NEGATIVE (NEGATIVE); URINE CLARITY Clear (Clear); URINE COLOR Straw (YELLOW); URINE GLUCOSE (UA) NORMAL (Normal); URINE LEUKOCYTE ESTERASE NEG Leu/uL (Negative); URINE PROTEIN NEGATIVE (NEGATIVE); URINE UROBILINOGEN NORMAL mg/dL (0.2-1.0)
--- NOTE | 2017-08-04 12:30 | CT ---
PROCEDURE: CT Chest with contrast (Pulmonary Angiogram) HISTORY: SOB and chest pain, h.o ca mets COMPARISON: None available. TECHNIQUE: Axial computed tomography images were obtained of the chest in the pulmonary arterial phase of enhancement. Coronal and sagittal reformatted images were created and reviewed. Intravenous contrast dose: 100 cc Visipaque 320 contrast Radiation dose: Total exam DLP = 427.25 mGy-cm. This CT exam was performed using one or more of the following dose reduction techniques: Automated exposure control, adjustment of the mA and/or kV according to patient size, and/or use of iterative reconstruction technique. FINDINGS: PULMONARY ARTERIES: The visualized pulmonary trunk, right and left main, lobar, segmental and proximal subsegmental branches of the pulmonary arteries are well opacified with no definitive filling defects seen to suggest acute pulmonary embolus. Pulmonary trunk measures approximately 21.6 mm. AORTA: No acute findings. No thoracic aortic aneurysm. The ascending thoracic aorta measures approximately 3.25 cm and descending thoracic aorta measures approximately 2.1 cm. LUNGS: Multiple too numerous to count, varying sized round and elliptical shaped parenchymal nodules are present throughout both upper and lower lobes consistent with metastatic deposits. PLEURAL SPACES: Unremarkable. No effusion or pneumothorax. HEART: Heart size is within range of normal. No significant pericardial effusion. LYMPH NODES: Cerebral of mediastinal lymph nodes are present the largest in the AP window region measuring approximately 15 mm. . Multiple of mildly enlarged right hilar lymph nodes are present with 2 adjacent lymph nodes best seen on axial series 3, image number [id number] that measures approximately 12.5 and 14.7 mm anterioranterior and posterior in location respectively. Enlarged posterior mediastinal lymph node in the as ago esophageal recess measures approximately 2.1 cm. Left-sided hilar lymph node measuring approximately 15 mm best seen on axial series 3, image number 50. . There is a small hiatal hernia with wall thickening of the distal esophagus that could be due to protrusion gastric mucosa. Esophagitis not excluded. Central airways midline and patent. No large central endoluminal lesions. BONES, CHEST WALL: Diffuse sclerotic metastasis are seen throughout the thoracic and upper lumbar spine as well as sternum and multiple bilateral ribs. . OTHER FINDINGS: Unremarkable. IMPRESSION: No evidence of acute central pulmonary embolus. Multiple multiple (too numerous count) varying sized metastatic parenchymal nodules throughout both upper and lower lobes. Mediastinal and hilar adenopathy. Diffuse sclerotic bone metastasis.
[2017-08-04 13:38] VITALS: BP 118/70; PULSE 70; TEMP 98.2
== END 2017-08-04 13:37 | disposition home or self-care (01) ==
LOC: C.ER 09:32
DX: G89.29 Other chronic pain (principal); R07.89 Other chest pain; K59.00 Constipation, unspecified; C79.82 Secondary malignant neoplasm of genital organs
CPT/HCPCS: 71275; 80053; 81001; 83880; 85025; 85378; 85610; 85730; 96374; 96375; 99285; J1170; J2270; Q9967

== ENCOUNTER 2017-08-09 11:16 | Emergency (ER) | payer MEDICAID ==
[2017-08-09 11:24] VITALS: O2SAT 100
[2017-08-09] MEDS ORDERED: Sodium Chloride 0.9% 1,000 ML IV ONE (11:55)
[2017-08-09] MEDS ORDERED: HYDROmorphone 1 mg/ml ISec IVP STA (11:55)
[2017-08-09 12:39] LABS: BASO % 0.9 % (0.0-2.0); EOS % 1.6 % (0.0-4.0); HEMOGLOBIN 8.4 g/dL (12.0-18.0); LYMPH # 0.3 K/uL (1.0-4.3); LYMPH % 16.5 % (20.0-40.0); MEAN CORPUSCULAR HEMOGLOBIN 30.3 pg (27.0-31.0); MEAN CORPUSCULAR HGB CONC 34.4 g/dL (33.0-37.0); MEAN PLATELET VOLUME 7.8 fL (7.2-11.7); MONO % 1.4 % (0.0-10.0); NEUT # 1.6 K/uL (1.8-7.0); NEUT % 79.6 % (50.0-75.0); NRBC % 0.5 % (0.0-2.0); RBC 2.78 Mil/uL (4.40-5.90); RED CELL DISTRIBUTION WIDTH 17.5 % (11.5-14.5)
[2017-08-09 12:43] LABS: WHITE BLOOD COUNT 2.1 K/uL (4.8-10.8)
[2017-08-09 12:48] LABS: ALB/GLOB RATIO 1.1 (1.0-2.1); ALBUMIN 4.2 g/dL (3.5-5.0); ALT/SGPT 28 U/L (21-72); AST/SGOT 63 U/L (17-59); BLOOD UREA NITROGEN 30 mg/dL (9-20); CALCIUM 7.5 mg/dl (8.6-10.4); GFR AFRICAN-AMERICAN > 60; GFR NON-AFRICAN AMERICAN > 60; LIPASE 151 U/L (23-300)
--- NOTE | 2017-08-09 13:01 | RAD ---
PROCEDURE: Radiographs of the chest and abdomen (obstructive series) HISTORY: abd pain COMPARISON: No prior. TECHNIQUE: AP radiograph of the chest, with upright and supine radiographs of the abdomen. FINDINGS: CHEST: Lungs: Clear. Cardiovascular: Normal size heart. No pulmonary vascular congestion. Pleura: No pleural fluid. No pneumothorax. Other findings: None. ABDOMEN AND PELVIS: Bowel: Unremarkable bowel gas pattern. No evidence of mechanical obstruction. Free air: None. Bones: Diffuse sclerotic osseous metastasis throughout the lumbar spine and pelvis. Other findings: None. IMPRESSION: Normal bowel gas pattern. Diffuse sclerotic osseous metastasis.
[2017-08-09 13:32] LABS: SQUAMOUS EPITHIAL < 1 /hpf (0-5); URINE BILIRUBIN NEGATIVE (NEGATIVE); URINE BLOOD NEGATIVE (NEGATIVE); URINE CLARITY Clear (Clear); URINE COLOR Yellow (YELLOW); URINE GLUCOSE (UA) NORMAL (Normal); URINE LEUKOCYTE ESTERASE NEG Leu/uL (Negative); URINE PROTEIN NEGATIVE (NEGATIVE); URINE UROBILINOGEN NORMAL mg/dL (0.2-1.0)
--- NOTE | 2017-08-09 13:41 | C.PDOC ---
History Of Present Illness 61-year-old male, PMHx includes metastatic prostate cancer, presents to the emergency department with complaints of abdominal pain. Patient states he feels gas and pain. He also has not had bowel movement for 2 days, takes colon cleanser. Take Dilaudid daily for pain which provided no relief. Time Seen by Provider: 08/09/17 11:26 Chief Complaint (Nursing): Abdominal Pain History Per: Patient History/Exam Limitations: no limitations Current Symptoms Are (Timing): Still Present Past Medical History Reviewed: Historical Data, Nursing Documentation, Vital Signs Vital Signs: Last Vital Signs Temp 98.1 F 08/09/17 14:55 Pulse 58 L 08/09/17 14:55 Resp 16 08/09/17 14:55 BP 132/89 08/09/17 14:55 Pulse Ox 100 08/09/17 14:55 - Medical History PMH: Malignancy (metastatic prostate cancer) Family History: States: No Known Family Hx - Social History Hx Tobacco Use: No Hx Alcohol Use: No Hx Substance Use: No - Immunization History Hx Tetanus Toxoid Vaccination: No Hx Influenza Vaccination: No Hx Pneumococcal Vaccination: No Review Of Systems Constitutional: Negative for: Fever, Chills Cardiovascular: Negative for: Chest Pain Respiratory: Negative for: Cough, Shortness of Breath Gastrointestinal: Positive for: Abdominal Pain. Negative for: Nausea, Vomiting Musculoskeletal: Negative for: Neck Pain, Back Pain Skin: Negative for: Rash Neurological: Negative for: Weakness Physical Exam - Physical Exam Appears: Non-toxic, No Acute Distress Skin: Warm, Dry, Ecchymosis (old ecchymotic lesions to bilateral arms) Head: Atraumatic, Normacephalic Eye(s): bilateral: Normal Inspection Nose: Normal Oral Mucosa: Moist Lips: Normal Appearing Neck: Normal ROM Cardiovascular: Rhythm Regular, No Murmur Respiratory: Normal Breath Sounds, No Accessory Muscle Use Gastrointestinal/Abdominal: Soft, Tenderness (diffuse), No Guarding, No Rebound Extremity: Normal ROM, No Deformity, No Swelling Neurological/Psych: Oriented x3, Normal Speech ED Course And Treatment - Laboratory Results Result Diagrams: 08/09/17 12:29 08/09/17 14:12 Lab Interpretation: No Acute Changes O2 Sat by Pulse Oximetry: 100 Medical Decision Making Medical Decision Making: Impression: abdominal pain, h.o cancer. Patient takes Dilaudid at home, but states feels better when getting IV meds in hospital Plan: * Bloodwork * XR obstructive series * Dilaudid * IV NS * UA IV Dilaudid not available, there is national shortage. Order changed to IV Morphine Labs reviewed , low sodium. IV fluids infusing and will observe patient in ED. Lab repeated sodium normal. Patient reports pain is improving. Xray does not show any signs of mechanical obstruction. Patient afebrile with stable vital signs. Patient stable for discharge and instructed to continue with usual mediations and to follow up with PMD outpatient. Disposition Counseled Patient/Family Regarding: Diagnosis, Need For Followup, Rx Given - Disposition Referrals: King Recinos MD [Staff Provider] - Disposition: HOME/ ROUTINE Disposition Time: 14:34 Condition: GOOD Additional Instructions: Follow up with your primary medical doctor or clinic in 2-5 days for further evaluation. Take your usual medications as prescribed. Return to the emergency department at any time if symptoms persist or worsen. Instructions: Acute Abdomen (Belly Pain) Forms: [email or web address] (Armenian) Print Language: WALLISIAN - POA Present On Arrival: None - Clinical Impression Clinical Impression: Abdominal pain, Prostate cancer - Scribe Statement The provider has reviewed the documentation as recorded by the Scribe (Wilmer Anderson) All medical record entries made by the Scribe were at my direction and personally dictated by me. I have reviewed the chart and agree that the record accurately reflects my personal performance of the history, physical exam, medical decision making, and the department course for this patient. I have also personally directed, reviewed, and agree with the discharge instructions and disposition.
[2017-08-09 14:28] LABS: BLOOD UREA NITROGEN 26 mg/dL (9-20); CALCIUM 6.9 mg/dl (8.6-10.4); GFR AFRICAN-AMERICAN > 60; GFR NON-AFRICAN AMERICAN > 60
[2017-08-09 14:56] VITALS: BP 132/89; PULSE 58; RESP 16; TEMP 98.1
== END 2017-08-09 14:56 | disposition home or self-care (01) ==
LOC: C.ER 11:16
DX: C61 Malignant neoplasm of prostate (principal); R10.9 Unspecified abdominal pain
CPT/HCPCS: 74022; 80053; 81001; 83690; 85025; 96361; 96374; 99285; J2270; J7030

== ENCOUNTER 2017-08-18 07:15 | Inpatient (IN) | payer MEDICAID ==
[2017-08-18] MEDS ORDERED: Sodium Chloride 0.9% 1,000 ML IV ONE (07:42)
--- NOTE | 2017-08-18 07:54 | C.PDOC ---
History Of Present Illness 61 y/o male with Hx of metastatic prostate cancer presents to ED for complaints of diffuse abdominal pain that worsened over night. Patient reports associated symptom of constipation. He states he took dilaudid at 4am this morning for relief. Patient presented to ER with similar complaints on 08/09 and was diagnosed with constipation. Time Seen by Provider: 08/18/17 07:34 Chief Complaint (Nursing): Abdominal Pain History Per: Patient History/Exam Limitations: no limitations Onset/Duration Of Symptoms: Hrs Current Symptoms Are (Timing): Still Present Location Of Pain/Discomfort: Diffuse Radiation Of Pain To:: None Quality Of Discomfort: "Pain" Associated Symptoms: Constipation. denies: Fever, Chills, Nausea, Vomiting, Diarrhea, Urinary Symptoms Exacerbating Factors: None Alleviating Factors: None Last Bowel Movement: Yesterday Recent travel outside of the [place]: No Past Medical History Reviewed: Historical Data, Nursing Documentation, Vital Signs Vital Signs: Last Vital Signs Temp 98.7 F 08/18/17 07:23 Pulse 100 H 08/18/17 07:23 Resp 20 08/18/17 07:23 BP 122/76 08/18/17 07:23 Pulse Ox 99 08/18/17 08:44 - Medical History PMH: Malignancy (metastatic prostate cancer) Family History: States: No Known Family Hx - Social History Hx Tobacco Use: No Hx Alcohol Use: No Hx Substance Use: No - Immunization History Hx Tetanus Toxoid Vaccination: No Hx Influenza Vaccination: No Hx Pneumococcal Vaccination: No Review Of Systems Constitutional: Negative for: Fever, Chills Gastrointestinal: Positive for: Abdominal Pain (Diffuse ), Constipation. Negative for: Nausea, Vomiting, Diarrhea Genitourinary: Negative for: Dysuria Skin: Negative for: Rash Neurological: Negative for: Weakness, Numbness Physical Exam - Physical Exam Appears: Non-toxic, Chronically Ill Skin: Normal Color, Warm, Dry Head: Atraumatic, Normacephalic Eye(s): bilateral: Other (pinpoint pupils) Oral Mucosa: Moist Neck: Supple Chest: Symmetrical, No Tenderness Cardiovascular: Rhythm Regular, No Murmur Respiratory: Normal Breath Sounds, No Decreased Breath Sounds, No Rales, No Rhonchi, No Wheezing Gastrointestinal/Abdominal: Soft, Tenderness (Diffuse ), Other (diminished belly pain) Extremity: Normal ROM, No Deformity Extremity: Bilateral: Atraumatic, Normal Color And Temperature, Normal ROM Neurological/Psych: Oriented x3 (Awake and alert), Normal Speech, Other (No focal deficits ) Gait: Steady ED Course And Treatment - Laboratory Results Result Diagrams: 08/18/17 07:57 08/18/17 07:57 Lab Interpretation: Abnormal (pancytopenia, significant anemia hgb 6.6) ECG: Interpreted By Me ECG Rhythm: Sinus Rhythm ECG Interpretation: Normal Rate From EC O2 Sat by Pulse Oximetry: 99 (RA) Pulse Ox Interpretation: Normal - Radiology CXR: Interpreted by Me CXR Interpretation: Yes: No Acute Disease - Other Rad abd x 2 X-Ray: Interpreted by Me (normal stool/gas pattern, increased stool R side) Abdomen Obstructive Series X-Ray X-Ray: Viewed By Me, Read By Radiologist Interpretation: IMPRESSION: No pulmonary infiltrate. . No evidence of mechanical bowel obstruction. Right stool retention. Diffuse sclerotic lesions compatible with prostatic blastic metastases Progress Note: toradol IV, IVF, blood Tx started Reevaluation Time: 08:38 Reassessment Condition: Improved - Physician Consult Information Outcome Of Conversation: 0840: d/w Dr. Jorge Luis Pavon- prior adm MD, ok to admit. Medical Decision Making Medical Decision Making: Administered Toradol and IV fluids. Ordered EKG, blood work, Obstructive Series X-Ray, and urinalysis. pancytopenia, chronic constipation may be related to bed-bound and chronic PO Dilaudid tx Disposition Doctor Will See Patient In The: Hospital Counseled Patient/Family Regarding: Studies Performed, Diagnosis - Disposition Disposition: HOSPITALIZED Disposition Time: 08:39 Condition: GOOD Forms: [facility] (Maltese) - Clinical Impression Clinical Impression: Chronic pain, Pancytopenia - Scribe Statement The provider has reviewed the documentation as recorded by the Monicaibasia Ley All medical record entries made by the Monicaibasia were at my direction and personally dictated by me. I have reviewed the chart and agree that the record accurately reflects my personal performance of the history, physical exam, medical decision making, and the department course for this patient. I have also personally directed, reviewed, and agree with the discharge instructions and disposition.
[2017-08-18 08:00] LABS: BASO % 0.8 % (0.0-2.0); EOS % 0.8 % (0.0-4.0); HEMOGLOBIN 6.6 g/dL (12.0-18.0); LYMPH # 0.2 K/uL (1.0-4.3); LYMPH % 29.7 % (20.0-40.0); MEAN CELL VOLUME 88.4 fL (80.0-94.0); MEAN CORPUSCULAR HEMOGLOBIN 31.4 pg (27.0-31.0); MEAN CORPUSCULAR HGB CONC 35.6 g/dL (33.0-37.0); MEAN PLATELET VOLUME 7.4 fL (7.2-11.7); MONO % 1.7 % (0.0-10.0); NEUT # 0.6 K/uL (1.8-7.0); NRBC % 0.1 % (0.0-2.0); RBC 2.09 Mil/uL (4.40-5.90); RED CELL DISTRIBUTION WIDTH 18.2 % (11.5-14.5)
[2017-08-18] MEDS ORDERED: Sodium Chloride 0.9% 1,000 ML ONE (08:00)
[2017-08-18 08:06] LABS: URINE BILIRUBIN NEGATIVE (NEGATIVE); URINE BLOOD NEGATIVE (NEGATIVE); URINE CLARITY Clear (Clear); URINE COLOR Yellow (YELLOW); URINE GLUCOSE (UA) NORMAL (Normal); URINE LEUKOCYTE ESTERASE NEG Leu/uL (Negative); URINE PROTEIN 1+ mg/dL (NEGATIVE); URINE UROBILINOGEN NORMAL mg/dL (0.2-1.0)
[2017-08-18 08:14] LABS: WHITE BLOOD COUNT 0.8 K/uL (4.8-10.8)
[2017-08-18 08:15] LABS: ALB/GLOB RATIO 1.2 (1.0-2.1); ALBUMIN 3.6 g/dL (3.5-5.0); ALT/SGPT 25 U/L (21-72); AST/SGOT 58 U/L (17-59); BLOOD UREA NITROGEN 13 mg/dL (9-20); CALCIUM 7.4 mg/dl (8.6-10.4); GFR AFRICAN-AMERICAN > 60; GFR NON-AFRICAN AMERICAN > 60; LIPASE 41 U/L (23-300)
--- NOTE | 2017-08-18 08:55 | RAD ---
PROCEDURE: Radiographs of the chest and abdomen (obstructive series) HISTORY: abd pain COMPARISON: No prior. TECHNIQUE: AP radiograph of the chest, with upright and supine radiographs of the abdomen. FINDINGS: CHEST: Lungs: Clear. Cardiovascular: Normal size heart. No pulmonary vascular congestion. Pleura: No pleural fluid. No pneumothorax. Other findings: None. ABDOMEN AND PELVIS: Bowel: Paucity of left colonic gas. Right colon stool retention. No evidence of mechanical obstruction. Free air: None. Bones: Diffuse sclerotic lesions compatible with prostatic blastic metastases Other findings: None. IMPRESSION: No pulmonary infiltrate. . No evidence of mechanical bowel obstruction. Right stool retention Diffuse sclerotic lesions compatible with prostatic blastic metastases
[2017-08-18] MEDS ORDERED: Morphine 4 MG/ML VIAL ONE (09:23)
--- NOTE | 2017-08-18 12:37 | CP.PCM.HP ---
Past Patient History - Past Medical History & Family History Past Medical History?: Yes - Past Social History Smoking Status: Never Smoked - CARDIAC Hx Cardiac Disorders: No - PULMONARY Hx Respiratory Disorders: No - NEUROLOGICAL Hx Neurological Disorder: No - HEENT Hx HEENT Problems: No - RENAL Hx Chronic Kidney Disease: No - ENDOCRINE/METABOLIC Hx Endocrine Disorders: No - HEMATOLOGICAL/ONCOLOGICAL Hx Blood Transfusions: Yes Hx Blood Transfusion Reaction: No - INTEGUMENTARY Hx Dermatological Problems: No - MUSCULOSKELETAL/RHEUMATOLOGICAL Hx Musculoskeletal Disorders: No Hx Falls: No - GASTROINTESTINAL Hx Gastrointestinal Disorders: No - GENITOURINARY/GYNECOLOGICAL Hx Genitourinary Disorders: Yes Hx Prostate Cancer: Yes (radiation) - PSYCHIATRIC Hx Substance Use: No - SURGICAL HISTORY Hx Surgeries: No - ANESTHESIA Hx Anesthesia: No Hx Anesthesia Reactions: No Hx Malignant Hyperthermia: No Meds Allergies/Adverse Reactions: Allergies Allergy/AdvReac Type Severity Reaction Status Date / Time No Known Allergies Allergy Verified 08/09/17 11:24 Physical Exam - Constitutional Appears: Well - Head Exam Head Exam: ATRAUMATIC, NORMAL INSPECTION, NORMOCEPHALIC - Eye Exam Eye Exam: EOMI, Normal appearance, PERRL Pupil Exam: NORMAL ACCOMODATION, PERRL - ENT Exam ENT Exam: Mucous Membranes Moist, Normal Exam - Neck Exam Neck exam: Positive for: Normal Inspection - Respiratory Exam Respiratory Exam: Decreased Breath Sounds - Cardiovascular Exam Cardiovascular Exam: REGULAR RHYTHM, +S1, +S2 - GI/Abdominal Exam GI & Abdominal Exam: Diminished Bowel Sounds, Soft - Rectal Exam Rectal Exam: Deferred Results - Vital Signs Recent Vital Signs: Last Vital Signs Temp 98.9 F 08/18/17 11:26 Pulse 82 08/18/17 11:26 Resp 14 08/18/17 11:26 BP 117/65 08/18/17 11:26 Pulse Ox 95 08/18/17 11:26 - Labs Result Diagrams: 08/18/17 07:57 08/18/17 07:57 Labs: Laboratory Results - last 24 hr 08/18/17 08/18/17 08/18/17 07:57 07:57 07:57 WBC 0.8 L* D RBC 2.09 L Hgb 6.6 L Hct 18.5 L MCV 88.4 MCH 31.4 H MCHC 35.6 RDW 18.2 H Plt Count 56 L MPV 7.4 Neut % (Auto) 67.0 Lymph % (Auto) 29.7 [place] % (Auto) 1.7 Eos % (Auto) 0.8 Baso % (Auto) 0.8 Neut # (Auto) 0.6 L Lymph # (Auto) 0.2 L [place] # (Auto) 0.0 Eos # (Auto) 0.0 Baso # (Auto) 0.0 Sodium 135 Potassium 4.0 Chloride 103 Carbon Dioxide 23 Anion Gap 13 BUN 13 Creatinine 0.5 L Est GFR ( Amer) > 60 Est GFR (Non-Af Amer) > 60 Random Glucose 143 H Calcium 7.4 L Total Bilirubin 0.8 AST 58 ALT 25 Alkaline Phosphatase 278 H D Total Protein 6.7 Albumin 3.6 Globulin 3.0 Albumin/Globulin Ratio 1.2 Lipase 41 Urine Color Yellow Urine Clarity Clear Urine pH 6.0 Ur Specific [place] 1.016 Urine Protein 1+ H Urine Glucose (UA) Normal Urine Ketones 1+ H Urine Blood Negative Urine Nitrate Negative Urine Bilirubin Negative Urine Urobilinogen Normal Ur Leukocyte Esterase Neg Urine WBC (Auto) 1 Urine RBC (Auto) 2 Hyaline Casts 3-5 H Blood Type Antibody Screen 08/18/17 09:42 WBC RBC Hgb Hct MCV MCH MCHC RDW Plt Count MPV Neut % (Auto) Lymph % (Auto) [place] % (Auto) Eos % (Auto) Baso % (Auto) Neut # (Auto) Lymph # (Auto) [place] # (Auto) Eos # (Auto) Baso # (Auto) Sodium Potassium Chloride Carbon Dioxide Anion Gap BUN Creatinine Est GFR ( Amer) Est GFR (Non-Af Amer) Random Glucose Calcium Total Bilirubin AST ALT Alkaline Phosphatase Total Protein Albumin Globulin Albumin/Globulin Ratio Lipase Urine Color Urine Clarity Urine pH Ur Specific [place] Urine Protein Urine Glucose (UA) Urine Ketones Urine Blood Urine Nitrate Urine Bilirubin Urine Urobilinogen Ur Leukocyte Esterase Urine WBC (Auto) Urine RBC (Auto) Hyaline Casts Blood Type O POSITIVE Antibody Screen Negative
[2017-08-18] MEDS: HYDROmorphone 1 mg/ml ISec IVP PRN ×2 (14:47→20:47)
[2017-08-18] MEDS: Docusate-Senna 50 mg-8.6 mg Tab PO SCH (21:27)
[2017-08-19] MEDS: HYDROmorphone 1 mg/ml ISec IVP PRN ×2 (01:07→06:25)
[2017-08-19 06:21] LABS: BASO % 0.4 % (0.0-2.0); EOS % 1.8 % (0.0-4.0); LYMPH # 0.3 K/uL (1.0-4.3); LYMPH % 48.1 % (20.0-40.0); MEAN CORPUSCULAR HEMOGLOBIN 31.2 pg (27.0-31.0); MEAN CORPUSCULAR HGB CONC 35.4 g/dL (33.0-37.0); MEAN PLATELET VOLUME 7.9 fL (7.2-11.7); MONO % 1.1 % (0.0-10.0); NEUT # 0.3 K/uL (1.8-7.0); NEUT % 48.6 % (50.0-75.0); NRBC % 0.3 % (0.0-2.0); RBC 2.25 Mil/uL (4.40-5.90); RED CELL DISTRIBUTION WIDTH 17.6 % (11.5-14.5)
[2017-08-19 06:30] LABS: WHITE BLOOD COUNT 0.7 K/uL (4.8-10.8)
--- NOTE | 2017-08-19 12:07 | CP.PCM.CON ---
History of Present Illness - History of Present Illness History of Present Illness: 61 year old male with a history of stage IV prostate cancer with lymph node and metastasis on radiation and total androgen deprivation admitted with abdominal pain and pancytopenia. The patient has been on total androgen deprivation therapy and palliative radiotherapy to the bone. He recently had an endoscopy which he reports revealed gastritis and coral infection. He denies fevers and chills. He has no abnormal bleeding and bruising. Past medical history: Stage IV prostate cancer Past surgical history: None Family history: Denies hematologic and oncologic problems Social history: Social alcohol. Allergies: NKA Review of systems: All remaining review of systems including HEENT, cardiovascular, respiratory, gastrointestinal, genitourinary, musculoskeletal, dermatologic, neurologic, and psychiatric are negative unless mentioned in the HPI. Past Patient History - Past Medical History & Family History Past Medical History?: Yes - Past Social History Smoking Status: Never Smoked - CARDIAC Hx Cardiac Disorders: No - PULMONARY Hx Respiratory Disorders: No - NEUROLOGICAL Hx Neurological Disorder: No - HEENT Hx HEENT Problems: No - RENAL Hx Chronic Kidney Disease: No - ENDOCRINE/METABOLIC Hx Endocrine Disorders: No - HEMATOLOGICAL/ONCOLOGICAL Hx Blood Transfusions: Yes Hx Blood Transfusion Reaction: No - INTEGUMENTARY Hx Dermatological Problems: No - MUSCULOSKELETAL/RHEUMATOLOGICAL Hx Musculoskeletal Disorders: No Hx Falls: No Hx Unsteady Gait: No - GASTROINTESTINAL Hx Gastrointestinal Disorders: No - GENITOURINARY/GYNECOLOGICAL Hx Genitourinary Disorders: Yes Hx Prostate Cancer: Yes (radiation) - PSYCHIATRIC Hx Substance Use: No - SURGICAL HISTORY Hx Surgeries: No - ANESTHESIA Hx Anesthesia: No Hx Anesthesia Reactions: No Hx Malignant Hyperthermia: No Meds Allergies/Adverse Reactions: Allergies Allergy/AdvReac Type Severity Reaction Status Date / Time No Known Allergies Allergy Verified 08/09/17 11:24 - Medications Medications: Current Medications Dicyclomine HCl (Bentyl) 10 mg PO QID [facility] Last Admin: 08/19/17 09:48 Dose: 10 mg Docusate Sodium (Colace) 100 mg PO TID [facility] Last Admin: 08/19/17 09:48 Dose: 100 mg Hydromorphone HCl (Dilaudid) 2 mg IVP Q3 PRN PRN Reason: Pain, severe (8-10) Last Admin: 08/19/17 06:25 Dose: 2 mg Pantoprazole Sodium (Protonix Ec Tab) 40 mg PO DAILY [facility] Polyethylene Glycol (Miralax) 17 gm PO DAILY [facility] Senna/Docusate Sodium (Senokot S 50 Mg-8.6 Mg) 2 tab PO HS [facility] Last Admin: 08/18/17 21:27 Dose: 2 tab Physical Exam - Head Exam Head Exam: ATRAUMATIC - Eye Exam Eye Exam: Normal appearance - ENT Exam ENT Exam: Mucous Membranes Dry - Respiratory Exam Respiratory Exam: NORMAL BREATHING PATTERN - Cardiovascular Exam Cardiovascular Exam: +S1, +S2 - GI/Abdominal Exam GI & Abdominal Exam: Normal Bowel Sounds - Extremities Exam Extremities exam: Positive for: normal inspection - Neurological Exam Neurological exam: Oriented x3 - Psychiatric Exam Psychiatric exam: Normal Affect, Normal Mood - Skin Skin Exam: Warm Results - Vital Signs Recent Vital Signs: Last Vital Signs Temp 98.2 F 08/19/17 08:00 Pulse 86 08/19/17 08:00 Resp 20 08/19/17 08:00 BP 108/69 08/19/17 08:00 Pulse Ox 96 08/19/17 08:00 - Labs Result Diagrams: 08/19/17 06:09 08/18/17 07:57 Labs: Laboratory Results - last 24 hr 08/18/17 08/19/17 09:42 06:09 WBC 0.7 L* RBC 2.25 L Hgb 7.0 L Hct 19.8 L MCV 88.0 MCH 31.2 H MCHC 35.4 RDW 17.6 H Plt Count 46 L MPV 7.9 Neut % (Auto) 48.6 L Lymph % (Auto) 48.1 H [place] % (Auto) 1.1 Eos % (Auto) 1.8 Baso % (Auto) 0.4 Neut # (Auto) 0.3 L Lymph # (Auto) 0.3 L [place] # (Auto) 0.0 Eos # (Auto) 0.0 Baso # (Auto) 0.0 Differential Comment Blood Type O POSITIVE Antibody Screen Negative Assessment & Plan (1) Pancytopenia Assessment and Plan: multifactorial bone metastasis, radiation treatment severe neutropenia, will give Granix s/p 1 unit PRBC, will transfuse an additional unit Status: Acute (2) Metastatic malignant neoplasm to prostate Assessment and Plan: bone and lymph node metastasis on androgen deprivation therapy and palliative radiotherapy outpatient treatment Thank you for this interesting consult. Status: Acute
[2017-08-19] MEDS: Pantoprazole 40 mg EC Tab PO SCH (14:00)
[2017-08-19] MEDS ORDERED: POLYETHYLENE GLYCOL 3350 17 GM/Dose PACKET PO SCH (14:00)
[2017-08-19] MEDS: POLYETHYLENE GLYCOL 3350 17 GM/Dose PACKET PO SCH (16:22)
--- NOTE | 2017-08-19 19:16 | CP.PCM.PN ---
Subjective - Date & Time of Evaluation Date of Evaluation: 08/19/17 Time of Evaluation: 08:40 - Subjective Subjective: clinically same Objective - Vital Signs/Intake and Output Vital Signs (last 24 hours): Temp Pulse Resp BP Pulse Ox 99 F 86 20 107/64 96 08/19/17 15:15 08/19/17 15:15 08/19/17 15:15 08/19/17 15:15 08/19/17 15:15 Intake and Output: 08/19/17 08/20/17 18:59 06:59 Intake Total 200 Balance 200 - Medications Medications: Current Medications Dicyclomine HCl (Bentyl) 10 mg PO QID [facility] Last Admin: 08/19/17 18:12 Dose: 10 mg Docusate Sodium (Colace) 100 mg PO TID [facility] Last Admin: 08/19/17 18:12 Dose: 100 mg Hydromorphone HCl (Dilaudid) 2 mg IVP Q3 PRN PRN Reason: Pain, severe (8-10) Last Admin: 08/19/17 06:25 Dose: 2 mg Pantoprazole Sodium (Protonix Ec Tab) 40 mg PO DAILY [facility] Last Admin: 08/19/17 14:00 Dose: 40 mg Polyethylene Glycol (Miralax) 17 gm PO DAILY [facility] Last Admin: 08/19/17 16:22 Dose: Not Given Senna/Docusate Sodium (Senokot S 50 Mg-8.6 Mg) 2 tab PO [facility] Last Admin: 08/18/17 21:27 Dose: 2 tab - Labs Labs: 08/19/17 06:09 08/18/17 07:57 - Constitutional Appears: Well - Head Exam Head Exam: ATRAUMATIC, NORMAL INSPECTION, NORMOCEPHALIC - Eye Exam Eye Exam: EOMI, Normal appearance, PERRL Pupil Exam: NORMAL ACCOMODATION, PERRL - ENT Exam ENT Exam: Mucous Membranes Moist, Normal Exam - Neck Exam Neck Exam: Full ROM, Normal Inspection. absent: Lymphadenopathy - Respiratory Exam Respiratory Exam: Decreased Breath Sounds - Cardiovascular Exam Cardiovascular Exam: REGULAR RHYTHM, +S1, +S2 - GI/Abdominal Exam GI & Abdominal Exam: Soft, Diminished Bowel Sounds - Rectal Exam Rectal Exam: Deferred
[2017-08-19] MEDS: Docusate-Senna 50 mg-8.6 mg Tab PO SCH (21:46)
--- NOTE | 2017-08-19 22:24 | CARD ---
APPROVED REPORT EKG Measurement Heart [id number] <Conclusion> Normal sinus rhythm Normal ECG
[2017-08-20] MEDS: HYDROmorphone 1 mg/ml ISec IVP PRN ×5 (02:28→22:32)
[2017-08-20 07:54] LABS: BASO % 0.7 % (0.0-2.0); EOS % 1.8 % (0.0-4.0); HEMOGLOBIN 7.9 g/dL (12.0-18.0); LYMPH # 0.3 K/uL (1.0-4.3); LYMPH % 43.4 % (20.0-40.0); MEAN CELL VOLUME 86.7 fL (80.0-94.0); MEAN CORPUSCULAR HEMOGLOBIN 30.5 pg (27.0-31.0); MEAN CORPUSCULAR HGB CONC 35.2 g/dL (33.0-37.0); MEAN PLATELET VOLUME 7.7 fL (7.2-11.7); MONO % 1.3 % (0.0-10.0); NEUT # 0.3 K/uL (1.8-7.0); NEUT % 52.8 % (50.0-75.0); RBC 2.59 Mil/uL (4.40-5.90); RED CELL DISTRIBUTION WIDTH 16.4 % (11.5-14.5)
[2017-08-20 08:03] LABS: WHITE BLOOD COUNT 0.6 K/uL (4.8-10.8)
[2017-08-20] MEDS: POLYETHYLENE GLYCOL 3350 17 GM/Dose PACKET PO SCH ×2 (09:49→10:46)
[2017-08-20] MEDS: Pantoprazole 40 mg EC Tab PO SCH (09:49)
--- NOTE | 2017-08-20 09:49 | CP.PCM.CON ---
History of Present Illness - History of Present Illness History of Present Illness: Covering Dr Westfall Consult reason: constip, abd p H/o prostate cancer receiving treatments. reports abdom pain x 4 months. Sees GI MD at [facility]/. Had EGD few weeks ago showing esophagiits and gastritis at [facility]. Reports constipation and LLq abd p. Pain is better today. Review of Systems - Constitutional Constitutional: Weight Loss. absent: Fever - EENT Eyes: absent: Photophobia Nose/Mouth/Throat: absent: Lip Swelling - Cardiovascular Cardiovascular: absent: Chest Pain, Dyspnea - Respiratory Respiratory: absent: Hemoptysis, Wheezing - Gastrointestinal Gastrointestinal: Abdominal Pain, Constipation. absent: Coffee Ground Emesis, Diarrhea, Dysphagia, Hematemesis, Hematochezia, Loose Stools, Melena, Odynophagia, Vomiting - Genitourinary Genitourinary: absent: Hematuria - Musculoskeletal Musculoskeletal: absent: Muscle Cramps - Integumentary Integumentary: absent: Jaundice - Neurological Neurological: absent: Convulsions, Numbness - Psychiatric Psychiatric: absent: Hallucinations Past Patient History - Past Medical History & Family History Past Medical History?: Yes - Past Social History Smoking Status: Never Smoked - CARDIAC Hx Cardiac Disorders: No - PULMONARY Hx Respiratory Disorders: No - NEUROLOGICAL Hx Neurological Disorder: No - HEENT Hx HEENT Problems: No - RENAL Hx Chronic Kidney Disease: No - ENDOCRINE/METABOLIC Hx Endocrine Disorders: No - HEMATOLOGICAL/ONCOLOGICAL Hx Blood Transfusions: Yes Hx Blood Transfusion Reaction: No - INTEGUMENTARY Hx Dermatological Problems: No - MUSCULOSKELETAL/RHEUMATOLOGICAL Hx Musculoskeletal Disorders: No Hx Falls: No Hx Unsteady Gait: No - GASTROINTESTINAL Hx Gastrointestinal Disorders: No - GENITOURINARY/GYNECOLOGICAL Hx Genitourinary Disorders: Yes Hx Prostate Cancer: Yes (radiation) - PSYCHIATRIC Hx Substance Use: No - SURGICAL HISTORY Hx Surgeries: No - ANESTHESIA Hx Anesthesia: No Hx Anesthesia Reactions: No Hx Malignant Hyperthermia: No Meds Allergies/Adverse Reactions: Allergies Allergy/AdvReac Type Severity Reaction Status Date / Time No Known Allergies Allergy Verified 08/09/17 11:24 - Medications Medications: Current Medications Dicyclomine HCl (Bentyl) 10 mg PO QID [facility] Last Admin: 08/19/17 22:13 Dose: 10 mg Diphenhydramine HCl (Benadryl) 25 mg PO ONCE ONE Stop: 08/20/17 11:01 Docusate Sodium (Colace) 100 mg PO TID [facility] Last Admin: 08/19/17 18:12 Dose: 100 mg Hydromorphone HCl (Dilaudid) 2 mg IVP Q3 PRN PRN Reason: Pain, severe (8-10) Last Admin: 08/20/17 06:11 Dose: 2 mg Pantoprazole Sodium (Protonix Ec Tab) 40 mg PO DAILY [facility] Last Admin: 08/19/17 14:00 Dose: 40 mg Polyethylene Glycol (Miralax) 17 gm PO DAILY [facility] Last Admin: 08/19/17 16:22 Dose: Not Given Senna/Docusate Sodium (Senokot S 50 Mg-8.6 Mg) 2 tab PO HS [facility] Last Admin: 08/19/17 21:46 Dose: 2 tab Physical Exam - Constitutional Appears: Non-toxic - Respiratory Exam Respiratory Exam: Clear to Auscultation Bilateral - Cardiovascular Exam Cardiovascular Exam: RRR - GI/Abdominal Exam GI & Abdominal Exam: Normal Bowel Sounds, Soft. absent: Guarding, Mass, Tenderness - Neurological Exam Neurological exam: Alert, Oriented x3 - Psychiatric Exam Psychiatric exam: Normal Mood Results - Vital Signs Recent Vital Signs: Last Vital Signs Temp 98.8 F 08/20/17 08:07 Pulse 78 08/20/17 08:07 Resp 20 08/20/17 08:07 BP 112/69 08/20/17 08:07 Pulse Ox 96 08/20/17 08:07 - Labs Result Diagrams: 08/20/17 07:32 08/18/17 07:57 Labs: Laboratory Results - last 24 hr 08/18/17 08/19/17 08/20/17 09:42 06:09 07:32 WBC 0.7 L* 0.6 L* RBC 2.25 L 2.59 L Hgb 7.0 L 7.9 L Hct 19.8 L 22.4 L MCV 88.0 86.7 MCH 31.2 H 30.5 MCHC 35.4 35.2 RDW 17.6 H 16.4 H Plt Count 46 L 43 L MPV 7.9 7.7 Neut % (Auto) 48.6 L 52.8 Lymph % (Auto) 48.1 H 43.4 H [place] % (Auto) 1.1 1.3 Eos % (Auto) 1.8 1.8 Baso % (Auto) 0.4 0.7 Neut # (Auto) 0.3 L 0.3 L Lymph # (Auto) 0.3 L 0.3 L [place] # (Auto) 0.0 0.0 Eos # (Auto) 0.0 0.0 Baso # (Auto) 0.0 0.0 Differential Comment Blood Type O POSITIVE Antibody Screen Negative Assessment & Plan (1) Anemia Assessment and Plan: malignancy and chemo Status: Acute (2) Pancytopenia Status: Acute (3) Abdominal pain Assessment and Plan: constip. Metastatic dis. HAd recent EGD with gastritis and esophagiits Status: Acute (4) Constipation Assessment and Plan: treat with laxatives Status: Acute (5) Metastatic malignant neoplasm to prostate Status: Acute (6) Neutropenia Status: Acute (7) Gastritis Status: Acute (8) Esophagitis Status: Acute
--- NOTE | 2017-08-20 19:05 | CP.PCM.PN ---
Subjective - Date & Time of Evaluation Date of Evaluation: 08/20/17 Time of Evaluation: 09:00 - Subjective Subjective: clinically same Objective - Vital Signs/Intake and Output Vital Signs (last 24 hours): Temp Pulse Resp BP Pulse Ox 99.6 F 76 20 112/66 99 08/20/17 16:15 08/20/17 16:15 08/20/17 16:15 08/20/17 16:15 08/20/17 15:30 Intake and Output: 08/20/17 08/21/17 18:59 06:59 Intake Total 325 Balance 325 - Medications Medications: Current Medications Dicyclomine HCl (Bentyl) 10 mg PO QID [facility] Last Admin: 08/20/17 17:47 Dose: 10 mg Docusate Sodium (Colace) 100 mg PO TID [facility] Last Admin: 08/20/17 17:47 Dose: 100 mg Hydromorphone HCl (Dilaudid) 2 mg IVP Q3 PRN PRN Reason: Pain, severe (8-10) Last Admin: 08/20/17 16:17 Dose: 2 mg Pantoprazole Sodium (Protonix Ec Tab) 40 mg PO DAILY [facility] Last Admin: 08/20/17 09:49 Dose: 40 mg Polyethylene Glycol (Miralax) 17 gm PO DAILY [facility] Last Admin: 08/20/17 10:46 Dose: Not Given Senna/Docusate Sodium (Senokot S 50 Mg-8.6 Mg) 2 tab PO HS [facility] Last Admin: 08/19/17 21:46 Dose: 2 tab - Labs Labs: 08/20/17 07:32 08/18/17 07:57 - Constitutional Appears: Well - Head Exam Head Exam: ATRAUMATIC, NORMAL INSPECTION, NORMOCEPHALIC - Eye Exam Eye Exam: EOMI, Normal appearance, PERRL Pupil Exam: NORMAL ACCOMODATION, PERRL - ENT Exam ENT Exam: Mucous Membranes Moist, Normal Exam - Neck Exam Neck Exam: Full ROM, Normal Inspection. absent: Lymphadenopathy - Respiratory Exam Respiratory Exam: Decreased Breath Sounds - Cardiovascular Exam Cardiovascular Exam: REGULAR RHYTHM, +S1, +S2 - GI/Abdominal Exam GI & Abdominal Exam: Soft, Diminished Bowel Sounds - Rectal Exam Rectal Exam: Deferred
--- NOTE | 2017-08-20 20:29 | CP.PCM.PN ---
Subjective - Date & Time of Evaluation Date of Evaluation: 08/20/17 Time of Evaluation: 18:00 - Subjective Subjective: Has some abdominal pain. Objective - Vital Signs/Intake and Output Vital Signs (last 24 hours): Temp Pulse Resp BP Pulse Ox 99.6 F 76 20 112/66 99 08/20/17 16:15 08/20/17 16:15 08/20/17 16:15 08/20/17 16:15 08/20/17 15:30 Intake and Output: 08/20/17 08/21/17 18:59 06:59 Intake Total 325 Balance 325 - Medications Medications: Current Medications Dicyclomine HCl (Bentyl) 10 mg PO QID [facility] Last Admin: 08/20/17 17:47 Dose: 10 mg Docusate Sodium (Colace) 100 mg PO TID [facility] Last Admin: 08/20/17 17:47 Dose: 100 mg Hydromorphone HCl (Dilaudid) 2 mg IVP Q3 PRN PRN Reason: Pain, severe (8-10) Last Admin: 08/20/17 16:17 Dose: 2 mg Pantoprazole Sodium (Protonix Ec Tab) 40 mg PO DAILY [facility] Last Admin: 08/20/17 09:49 Dose: 40 mg Polyethylene Glycol (Miralax) 17 gm PO DAILY [facility] Last Admin: 08/20/17 10:46 Dose: Not Given Senna/Docusate Sodium (Senokot S 50 Mg-8.6 Mg) 2 tab PO HS [facility] Last Admin: 08/19/17 21:46 Dose: 2 tab - Labs Labs: 08/20/17 07:32 08/18/17 07:57 - Head Exam Head Exam: ATRAUMATIC - Eye Exam Eye Exam: Normal appearance - ENT Exam ENT Exam: Mucous Membranes Dry - Respiratory Exam Respiratory Exam: NORMAL BREATHING PATTERN - Cardiovascular Exam Cardiovascular Exam: +S1, +S2 Assessment and Plan (1) Pancytopenia Assessment & Plan: multifactorial bone metastasis, radiation treatment severe neutropenia, redose Granix s/p 1 unit PRBC, will transfuse an additional unit Status: Acute (2) Metastatic malignant neoplasm to prostate Assessment & Plan: bone and lymph node metastasis on androgen deprivation therapy and palliative radiotherapy outpatient treatment Status: Acute
[2017-08-20] MEDS: Docusate-Senna 50 mg-8.6 mg Tab PO SCH (21:44)
[2017-08-21] MEDS: HYDROmorphone 1 mg/ml ISec IVP PRN ×5 (04:35→19:54)
--- NOTE | 2017-08-21 09:27 | CP.PCM.PN ---
Subjective - Date & Time of Evaluation Date of Evaluation: 08/21/17 Time of Evaluation: 09:26 - Subjective Subjective: Progress Note for Dr. Pavon Patient seen and examined at bedside. No acute events reported overnight. Patient's daughter Jill was spoken to over the phone for updates. He reports of fatigue. Otherwise patient has no current complaints. He denies having fever , chills, headache, coughs, shortness of breath, chest pain, nausea, or vomiting. Objective - Vital Signs/Intake and Output Vital Signs (last 24 hours): Temp Pulse Resp BP Pulse Ox 99.4 F 81 20 133/78 97 08/21/17 04:41 08/21/17 04:41 08/21/17 04:41 08/21/17 04:41 08/21/17 04:41 Intake and Output: 08/21/17 08/21/17 06:59 18:59 Intake Total 540 Balance 540 - Medications Medications: Current Medications Dicyclomine HCl (Bentyl) 10 mg PO QID [facility] Last Admin: 08/20/17 21:44 Dose: 10 mg Docusate Sodium (Colace) 100 mg PO TID [facility] Last Admin: 08/20/17 17:47 Dose: 100 mg Hydromorphone HCl (Dilaudid) 2 mg IVP Q3 PRN PRN Reason: Pain, severe (8-10) Last Admin: 08/21/17 08:03 Dose: 2 mg Pantoprazole Sodium (Protonix Ec Tab) 40 mg PO DAILY [facility] Last Admin: 08/20/17 09:49 Dose: 40 mg Polyethylene Glycol (Miralax) 17 gm PO DAILY [facility] Last Admin: 08/20/17 10:46 Dose: Not Given Senna/Docusate Sodium (Senokot S 50 Mg-8.6 Mg) 2 tab PO HS [facility] Last Admin: 08/20/17 21:44 Dose: 2 tab - Labs Labs: 08/20/17 07:32 08/18/17 07:57 - Additional Findings Additional findings: - Head Exam Head Exam: ATRAUMATIC - Eye Exam Eye Exam: Normal appearance - ENT Exam ENT Exam: Mucous Membranes Dry - Respiratory Exam Respiratory Exam: NORMAL BREATHING PATTERN - Cardiovascular Exam Cardiovascular Exam: +S1, +S2 - GI/Abdominal Exam GI & Abdominal Exam: Normal Bowel Sounds - Extremities Exam Extremities exam: Positive for: normal inspection - Neurological Exam Neurological exam: Oriented x3 - Psychiatric Exam Psychiatric exam: Normal Affect, Normal Mood - Skin Skin Exam: Warm Assessment and Plan - Assessment and Plan (Free Text) Assessment: Pancytopenia -WBC 0.8 s/p 1 dose of Granix -Hgb 9.2 S/P 3u PRBC -Platelet 36 -Follow heme/onc recommendations -will give another dose of Granix today -Follow up AM CBC Stage 4 prostate cancer -Metastasis to bone and lymph node s/p palliative radiotherapy -Dilaudid 2mg IV Q3 prn -Follow Heme/onc recommendations Gastritis -Currently stable -Recent endoscopy by at [place] revealed gastritis and coral infection -GI consulted, continue to follow recommendations Constipation -Colace 100mg TID -Senokot 2 tabs po HS -Miralax 17gm daily Prophylactic measures -Protonix -SCD -VTE contraindicated due to pancytopenia All management per Dr. Pavon
--- NOTE | 2017-08-21 10:25 | CP.PCM.PN ---
Subjective - Date & Time of Evaluation Date of Evaluation: 08/21/17 Time of Evaluation: 08:20 - Subjective Subjective: clinically same Objective - Vital Signs/Intake and Output Vital Signs (last 24 hours): Temp Pulse Resp BP Pulse Ox 99.1 F 87 20 121/74 96 08/21/17 08:00 08/21/17 08:00 08/21/17 08:00 08/21/17 08:00 08/21/17 08:00 Intake and Output: 08/21/17 08/21/17 06:59 18:59 Intake Total 540 Balance 540 - Medications Medications: Current Medications Dicyclomine HCl (Bentyl) 10 mg PO QID [facility] Last Admin: 08/20/17 21:44 Dose: 10 mg Docusate Sodium (Colace) 100 mg PO TID [facility] Last Admin: 08/20/17 17:47 Dose: 100 mg Hydromorphone HCl (Dilaudid) 2 mg IVP Q3 PRN PRN Reason: Pain, severe (8-10) Last Admin: 08/21/17 08:03 Dose: 2 mg Pantoprazole Sodium (Protonix Ec Tab) 40 mg PO DAILY [facility] Last Admin: 08/20/17 09:49 Dose: 40 mg Polyethylene Glycol (Miralax) 17 gm PO DAILY [facility] Last Admin: 08/20/17 10:46 Dose: Not Given Senna/Docusate Sodium (Senokot S 50 Mg-8.6 Mg) 2 tab PO HS [facility] Last Admin: 08/20/17 21:44 Dose: 2 tab - Labs Labs: 08/20/17 07:32 08/18/17 07:57 - Constitutional Appears: Well - Head Exam Head Exam: ATRAUMATIC, NORMAL INSPECTION, NORMOCEPHALIC - Eye Exam Eye Exam: EOMI, Normal appearance, PERRL Pupil Exam: NORMAL ACCOMODATION, PERRL - ENT Exam ENT Exam: Mucous Membranes Moist, Normal Exam - Neck Exam Neck Exam: Full ROM, Normal Inspection. absent: Lymphadenopathy - Respiratory Exam Respiratory Exam: Decreased Breath Sounds - Cardiovascular Exam Cardiovascular Exam: REGULAR RHYTHM, +S1, +S2 - GI/Abdominal Exam GI & Abdominal Exam: Soft, Diminished Bowel Sounds - Rectal Exam Rectal Exam: Deferred
[2017-08-21] MEDS: Pantoprazole 40 mg EC Tab PO SCH (10:49)
[2017-08-21] MEDS: POLYETHYLENE GLYCOL 3350 17 GM/Dose PACKET PO SCH (10:50)
[2017-08-21 11:15] LABS: BASO % 0.5 % (0.0-2.0); EOS % 1.3 % (0.0-4.0); HEMOGLOBIN 9.2 g/dL (12.0-18.0); LYMPH # 0.3 K/uL (1.0-4.3); LYMPH % 35.6 % (20.0-40.0); MEAN CELL VOLUME 87.6 fL (80.0-94.0); MEAN CORPUSCULAR HEMOGLOBIN 30.9 pg (27.0-31.0); MEAN CORPUSCULAR HGB CONC 35.2 g/dL (33.0-37.0); MEAN PLATELET VOLUME 8.2 fL (7.2-11.7); MONO % 1.4 % (0.0-10.0); NEUT # 0.5 K/uL (1.8-7.0); NEUT % 61.2 % (50.0-75.0); NRBC % 0.4 % (0.0-2.0); RBC 2.98 Mil/uL (4.40-5.90); RED CELL DISTRIBUTION WIDTH 15.7 % (11.5-14.5)
[2017-08-21 11:29] LABS: ALB/GLOB RATIO 1.2 (1.0-2.1); ALBUMIN 3.4 g/dL (3.5-5.0); ALT/SGPT 23 U/L (21-72); AST/SGOT 35 U/L (17-59); BLOOD UREA NITROGEN 10 mg/dL (9-20); CALCIUM 8.1 mg/dl (8.6-10.4); GFR AFRICAN-AMERICAN > 60; GFR NON-AFRICAN AMERICAN > 60; WHITE BLOOD COUNT 0.8 K/uL (4.8-10.8)
--- NOTE | 2017-08-21 13:22 | CP.PCM.PN ---
Subjective - Date & Time of Evaluation Date of Evaluation: 08/21/17 Time of Evaluation: 13:20 - Subjective Subjective: Covering Dr Westfall BMs No abdominal pain On Miralax with good response Objective - Vital Signs/Intake and Output Vital Signs (last 24 hours): Temp Pulse Resp BP Pulse Ox 99.1 F 87 20 121/74 96 08/21/17 08:00 08/21/17 08:00 08/21/17 08:00 08/21/17 08:00 08/21/17 08:00 Intake and Output: 08/21/17 08/21/17 06:59 18:59 Intake Total 540 Balance 540 - Medications Medications: Current Medications Dicyclomine HCl (Bentyl) 10 mg PO QID [facility] Last Admin: 08/21/17 10:50 Dose: 10 mg Docusate Sodium (Colace) 100 mg PO TID [facility] Last Admin: 08/21/17 10:49 Dose: 100 mg Hydromorphone HCl (Dilaudid) 2 mg IVP Q3 PRN PRN Reason: Pain, severe (8-10) Last Admin: 08/21/17 11:52 Dose: 2 mg Pantoprazole Sodium (Protonix Ec Tab) 40 mg PO DAILY [facility] Last Admin: 08/21/17 10:49 Dose: 40 mg Polyethylene Glycol (Miralax) 17 gm PO DAILY [facility] Last Admin: 08/21/17 10:50 Dose: 17 gm Senna/Docusate Sodium (Senokot S 50 Mg-8.6 Mg) 2 tab PO [facility] Last Admin: 08/20/17 21:44 Dose: 2 tab - Labs Labs: 08/21/17 11:09 08/21/17 11:09 - Constitutional Appears: Well, No Acute Distress - Cardiovascular Exam Cardiovascular Exam: REGULAR RHYTHM - GI/Abdominal Exam GI & Abdominal Exam: Soft. 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
[2017-08-21] MEDS: Docusate-Senna 50 mg-8.6 mg Tab PO SCH (21:52)
[2017-08-22] MEDS: HYDROmorphone 1 mg/ml ISec IVP PRN ×5 (02:45→21:25)
[2017-08-22 08:08] LABS: BASO % 0.6 % (0.0-2.0); EOS % 1.7 % (0.0-4.0); HEMOGLOBIN 9.4 g/dL (12.0-18.0); LYMPH # 0.5 K/uL (1.0-4.3); LYMPH % 39.9 % (20.0-40.0); MEAN CELL VOLUME 87.1 fL (80.0-94.0); MEAN CORPUSCULAR HGB CONC 35.6 g/dL (33.0-37.0); MEAN PLATELET VOLUME 8.6 fL (7.2-11.7); MONO % 0.8 % (0.0-10.0); NEUT # 0.7 K/uL (1.8-7.0); NRBC % 0.8 % (0.0-2.0); RBC 3.05 Mil/uL (4.40-5.90); RED CELL DISTRIBUTION WIDTH 16.5 % (11.5-14.5)
[2017-08-22 08:29] LABS: WHITE BLOOD COUNT 1.2 K/uL (4.8-10.8)
[2017-08-22] MEDS: Pantoprazole 40 mg EC Tab PO SCH (09:12)
[2017-08-22] MEDS: POLYETHYLENE GLYCOL 3350 17 GM/Dose PACKET PO SCH (09:12)
[2017-08-22 09:13] LABS: ALB/GLOB RATIO 1.1 (1.0-2.1); ALBUMIN 3.4 g/dL (3.5-5.0); ALT/SGPT 24 U/L (21-72); AST/SGOT 31 U/L (17-59); BLOOD UREA NITROGEN 9 mg/dL (9-20); CALCIUM 7.2 mg/dl (8.6-10.4); GFR AFRICAN-AMERICAN > 60; GFR NON-AFRICAN AMERICAN > 60
[2017-08-22 17:55] LABS: SQUAMOUS EPITHIAL < 1 /hpf (0-5); URINE BILIRUBIN NEGATIVE (NEGATIVE); URINE BLOOD NEGATIVE (NEGATIVE); URINE CLARITY Clear (Clear); URINE COLOR Yellow (YELLOW); URINE GLUCOSE (UA) NORMAL (Normal); URINE LEUKOCYTE ESTERASE NEG Leu/uL (Negative); URINE PROTEIN NEGATIVE (NEGATIVE)
[2017-08-22] MEDS ORDERED: cefTRIAXone IV 1 gm in Dextros 50 ML IVPB SCH (18:00)
[2017-08-22] MEDS: Cefepime IV 1 gm in Dextrose 1 GM/50 ML BAG IVPB SCH (19:00)
--- NOTE | 2017-08-22 19:02 | CP.PCM.PN ---
Subjective - Date & Time of Evaluation Date of Evaluation: 08/22/17 Time of Evaluation: 08:00 - Subjective Subjective: clinically same Objective - Vital Signs/Intake and Output Vital Signs (last 24 hours): Temp Pulse Resp BP Pulse Ox 100.1 F H 88 20 107/67 96 08/22/17 17:09 08/22/17 16:00 08/22/17 16:00 08/22/17 16:00 08/22/17 16:00 Intake and Output: 08/22/17 08/23/17 18:59 06:59 Intake Total 500 Balance 500 - Medications Medications: Current Medications Acetaminophen (Tylenol 325mg Tab) 650 mg PO Q8 PRN PRN Reason: Fever >100.4 F Last Admin: 08/22/17 17:09 Dose: 650 mg Dicyclomine HCl (Bentyl) 10 mg PO QID [facility] Last Admin: 08/22/17 17:09 Dose: 10 mg Docusate Sodium (Colace) 100 mg PO TID [facility] Last Admin: 08/22/17 17:09 Dose: 100 mg Hydromorphone HCl (Dilaudid) 2 mg IVP Q3 PRN PRN Reason: Pain, severe (8-10) Last Admin: 08/22/17 17:10 Dose: 2 mg Cefepime HCl (Maxipime Iv 1 Gm Premix) 1 gm in 50 mls @ 100 mls/hr IVPB Q12H [facility] PRN Reason: Protocol Pantoprazole Sodium (Protonix Ec Tab) 40 mg PO DAILY [facility] Last Admin: 08/22/17 09:12 Dose: 40 mg Polyethylene Glycol (Miralax) 17 gm PO DAILY [facility] Last Admin: 08/22/17 09:12 Dose: 17 gm Senna/Docusate Sodium (Senokot S 50 Mg-8.6 Mg) 2 tab PO HS [facility] Last Admin: 08/21/17 21:52 Dose: 2 tab - Labs Labs: 08/22/17 07:46 08/22/17 07:46 - Constitutional Appears: Well - Head Exam Head Exam: ATRAUMATIC, NORMAL INSPECTION, NORMOCEPHALIC - Eye Exam Eye Exam: EOMI, Normal appearance, PERRL Pupil Exam: NORMAL ACCOMODATION, PERRL - ENT Exam ENT Exam: Mucous Membranes Moist, Normal Exam - Neck Exam Neck Exam: Full ROM, Normal Inspection. absent: Lymphadenopathy - Respiratory Exam Respiratory Exam: Decreased Breath Sounds - Cardiovascular Exam Cardiovascular Exam: REGULAR RHYTHM, +S1, +S2 - GI/Abdominal Exam GI & Abdominal Exam: Soft, Diminished Bowel Sounds - Rectal Exam Rectal Exam: Deferred
--- NOTE | 2017-08-22 20:50 | CP.PCM.CON ---
History of Present Illness - History of Present Illness History of Present Illness: INFECTIOUS DISEASE CONSULT HPI; 61-year-old male with history of stage IV prostate CA with lymph node and metastasis on radiation and total androgen deprivation was admitted with abdominal pains and pancytopenia. Patient has been on total androgen deprivation therapy and palliative radiotherapy to the bone. Patient has had these abdominal pains for the last 4 months and recently had an endoscopy which she reports revealed gastritis and Bianca infection. Patient denies any fever or chills. Denies any cough or shortness of breath. He denies any GI bleeding or any bruising. Patient presently denies any odontophagia, dysphagia. Infectious disease consultation requested by PMD because off neutropenia. Patient denies any dysuria, hematuria but does state he has frequency of urination. Past medical history: Stage IV prostate cancer Past surgical history: None Family history: Denies hematologic and oncologic problems Social history: Social alcohol. Allergies: NKA Review of Systems - Constitutional Constitutional: absent: Chills, Fever - EENT Eyes: absent: Change in Vision Nose/Mouth/Throat: absent: Dysphagia, Mouth Lesions, Odynophagia - Cardiovascular Cardiovascular: absent: Chest Pain, Dyspnea - Respiratory Respiratory: absent: Cough, Dyspnea - Gastrointestinal Gastrointestinal: Abdominal Pain (epigastric). absent: Diarrhea, Nausea, Vomiting - Neurological Neurological: absent: Headaches - Hematologic/Lymphatic Hematologic: As Per HPI. absent: Easy Bleeding, Easy Bruising Past Patient History - Past Medical History & Family History Past Medical History?: Yes - Past Social History Smoking Status: Never Smoked - CARDIAC Hx Cardiac Disorders: No - PULMONARY Hx Respiratory Disorders: No - NEUROLOGICAL Hx Neurological Disorder: No - HEENT Hx HEENT Problems: No - RENAL Hx Chronic Kidney Disease: No - ENDOCRINE/METABOLIC Hx Endocrine Disorders: No - HEMATOLOGICAL/ONCOLOGICAL Hx Blood Transfusions: Yes Hx Blood Transfusion Reaction: No - INTEGUMENTARY Hx Dermatological Problems: No - MUSCULOSKELETAL/RHEUMATOLOGICAL Hx Musculoskeletal Disorders: No Hx Falls: No Hx Unsteady Gait: No - GASTROINTESTINAL Hx Gastrointestinal Disorders: No - GENITOURINARY/GYNECOLOGICAL Hx Genitourinary Disorders: Yes Hx Prostate Cancer: Yes (radiation) - PSYCHIATRIC Hx Substance Use: No - SURGICAL HISTORY Hx Surgeries: No - ANESTHESIA Hx Anesthesia: No Hx Anesthesia Reactions: No Hx Malignant Hyperthermia: No Meds Allergies/Adverse Reactions: Allergies Allergy/AdvReac Type Severity Reaction Status Date / Time No Known Allergies Allergy Verified 08/09/17 11:24 - Medications Medications: Current Medications Acetaminophen (Tylenol 325mg Tab) 650 mg PO Q8 PRN PRN Reason: Fever >100.4 F Last Admin: 08/22/17 17:09 Dose: 650 mg Dicyclomine HCl (Bentyl) 10 mg PO QID [facility] Last Admin: 08/22/17 17:09 Dose: 10 mg Docusate Sodium (Colace) 100 mg PO TID [facility] Last Admin: 08/22/17 17:09 Dose: 100 mg Hydromorphone HCl (Dilaudid) 2 mg IVP Q3 PRN PRN Reason: Pain, severe (8-10) Last Admin: 08/22/17 17:10 Dose: 2 mg Cefepime HCl (Maxipime Iv 1 Gm Premix) 1 gm in 50 mls @ 100 mls/hr IVPB Q12H [facility] PRN Reason: Protocol Last Admin: 08/22/17 19:00 Dose: 100 mls/hr Pantoprazole Sodium (Protonix Ec Tab) 40 mg PO DAILY [facility] Last Admin: 08/22/17 09:12 Dose: 40 mg Polyethylene Glycol (Miralax) 17 gm PO DAILY [facility] Last Admin: 08/22/17 09:12 Dose: 17 gm Senna/Docusate Sodium (Senokot S 50 Mg-8.6 Mg) 2 tab PO HS [facility] Last Admin: 08/21/17 21:52 Dose: 2 tab Physical Exam - Constitutional Appears: No Acute Distress - Head Exam Head Exam: NORMAL INSPECTION - Eye Exam Eye Exam: EOMI, PERRL - ENT Exam ENT Exam: Normal Oropharynx - Neck Exam Neck exam: Positive for: Normal Inspection - Respiratory Exam Respiratory Exam: Clear to Auscultation Bilateral - Cardiovascular Exam Cardiovascular Exam: REGULAR RHYTHM, +S1, +S2 - GI/Abdominal Exam GI & Abdominal Exam: Normal Bowel Sounds, Soft, Tenderness (epigastric region.) . absent: Distended - Extremities Exam Extremities exam: Positive for: pedal pulses present. Negative for: calf tenderness, pedal edema - Neurological Exam Neurological exam: Alert, CN II-XII Intact, Normal Gait, Oriented x3, Reflexes Normal - Skin Skin Exam: Normal Color, Warm Results - Vital Signs Recent Vital Signs: Last Vital Signs Temp 100.1 F H 06/30/18 17:09 Pulse 88 08/22/17 16:00 Resp 20 08/22/17 16:00 BP 107/67 08/22/17 16:00 Pulse Ox 96 08/22/17 16:00 - Labs Result Diagrams: 08/22/17 07:46 08/22/17 07:46 Labs: Laboratory Results - last 24 hr 08/22/17 08/22/17 08/22/17 07:46 07:46 17:48 WBC 1.2 L* RBC 3.05 L Hgb 9.4 L Hct 26.5 L MCV 87.1 MCH 31.0 MCHC 35.6 RDW 16.5 H Plt Count 35 L MPV 8.6 Neut % (Auto) 57.0 Lymph % (Auto) 39.9 [place] % (Auto) 0.8 Eos % (Auto) 1.7 Baso % (Auto) 0.6 Neut # (Auto) 0.7 L Lymph # (Auto) 0.5 L [place] # (Auto) 0.0 Eos # (Auto) 0.0 Baso # (Auto) 0.0 Differential Comment Sodium 132 Potassium 4.5 Chloride 100 Carbon Dioxide 22 Anion Gap 13 BUN 9 Creatinine 0.5 L Est GFR ( Amer) > 60 Est GFR (Non-Af Amer) > 60 Random Glucose 105 Calcium 7.2 L Total Bilirubin 1.1 AST 31 ALT 24 Alkaline Phosphatase 257 H Total Protein 6.4 Albumin 3.4 L Globulin 3.0 Albumin/Globulin Ratio 1.1 Urine Color Yellow Urine Clarity Clear Urine pH 7.0 Ur Specific [place] 1.019 Urine Protein Negative Urine Glucose (UA) Normal Urine Ketones Negative Urine Blood Negative Urine Nitrate Negative Urine Bilirubin Negative Urine Urobilinogen 4.0 Ur Leukocyte Esterase Neg Urine WBC (Auto) < 1 Urine RBC (Auto) 2 Ur Squamous Epith Cells < 1 Assessment & Plan (1) Pancytopenia Status: Acute (2) Abdominal pain Status: Acute (3) Esophagitis Status: Acute (4) Metastatic malignant neoplasm to prostate Assessment and Plan: HAEM/ONC ON BOARD. Status: Acute - Assessment and Plan (Free Text) Plan: PANCULTURES. MRSA SCREEN. DC IV ROCEPHIN.-NOT GIVEN YET. START iv CEFEPIME 1 G EVERY 12 HOURLY 08/22/17. ADD IV DIFLUCAN 200 MG LOADING DOSE F/U 100 MG ONCE A DAY DAILY 08/22/17. fOLLOW-UP BLOOD CULTURES AND URINE CULTURES TO ADJUST ANTIBIOTICS. fOLLOW-UP CBC /LFTS/ BMP ON thursday WILL FOLLOW WITH YOU.
[2017-08-22] MEDS: Docusate-Senna 50 mg-8.6 mg Tab PO SCH (21:27)
--- NOTE | 2017-08-22 23:03 | CP.PCM.PN ---
Subjective - Date & Time of Evaluation Date of Evaluation: 08/21/17 Time of Evaluation: 12:30 - Subjective Subjective: Pain improved. Objective - Vital Signs/Intake and Output Vital Signs (last 24 hours): Temp Pulse Resp BP Pulse Ox 100.1 F H 88 20 107/67 96 08/22/17 17:09 08/22/17 16:00 08/22/17 16:00 08/22/17 16:00 08/22/17 16:00 Intake and Output: 08/22/17 08/23/17 18:59 06:59 Intake Total 500 Balance 500 - Medications Medications: Current Medications Acetaminophen (Tylenol 325mg Tab) 650 mg PO Q8 PRN PRN Reason: Fever >100.4 F Last Admin: 08/22/17 17:09 Dose: 650 mg Dicyclomine HCl (Bentyl) 10 mg PO QID [facility] Last Admin: 08/22/17 21:25 Dose: 10 mg Docusate Sodium (Colace) 100 mg PO TID [facility] Last Admin: 08/22/17 17:09 Dose: 100 mg Hydromorphone HCl (Dilaudid) 2 mg IVP Q3 PRN PRN Reason: Pain, severe (8-10) Last Admin: 08/22/17 21:25 Dose: 2 mg Cefepime HCl (Maxipime Iv 1 Gm Premix) 1 gm in 50 mls @ 100 mls/hr IVPB Q12H [facility] PRN Reason: Protocol Last Admin: 08/22/17 19:00 Dose: 100 mls/hr Pantoprazole Sodium (Protonix Ec Tab) 40 mg PO DAILY [facility] Last Admin: 08/22/17 09:12 Dose: 40 mg Polyethylene Glycol (Miralax) 17 gm PO DAILY [facility] Last Admin: 08/22/17 09:12 Dose: 17 gm Senna/Docusate Sodium (Senokot S 50 Mg-8.6 Mg) 2 tab PO HS [facility] Last Admin: 08/22/17 21:27 Dose: 2 tab - Labs Labs: 08/22/17 07:46 08/22/17 07:46 - Head Exam Head Exam: ATRAUMATIC - Eye Exam Eye Exam: Normal appearance - ENT Exam ENT Exam: Mucous Membranes Dry - Respiratory Exam Respiratory Exam: NORMAL BREATHING PATTERN - Cardiovascular Exam Cardiovascular Exam: +S1, +S2 - GI/Abdominal Exam GI & Abdominal Exam: Normal Bowel Sounds Assessment and Plan (1) Pancytopenia Assessment & Plan: multifactorial bone metastasis, radiation treatment severe neutropenia, will give Granix s/p PRBC transfusion Status: Acute (2) Metastatic malignant neoplasm to prostate Assessment & Plan: bone and lymph node metastasis on androgen deprivation therapy and palliative radiotherapy outpatient treatment Status: Acute
--- NOTE | 2017-08-22 23:08 | CP.PCM.PN ---
Subjective - Date & Time of Evaluation Date of Evaluation: 08/22/17 Time of Evaluation: 14:00 - Subjective Subjective: Feels constipated Objective - Vital Signs/Intake and Output Vital Signs (last 24 hours): Temp Pulse Resp BP Pulse Ox 100.1 F H 88 20 107/67 96 08/22/17 17:09 08/22/17 16:00 08/22/17 16:00 08/22/17 16:00 08/22/17 16:00 Intake and Output: 08/22/17 08/23/17 18:59 06:59 Intake Total 500 290 Balance 500 290 - Medications Medications: Current Medications Acetaminophen (Tylenol 325mg Tab) 650 mg PO Q8 PRN PRN Reason: Fever >100.4 F Last Admin: 08/22/17 17:09 Dose: 650 mg Dicyclomine HCl (Bentyl) 10 mg PO QID [facility] Last Admin: 08/22/17 21:25 Dose: 10 mg Docusate Sodium (Colace) 100 mg PO TID [facility] Last Admin: 08/22/17 17:09 Dose: 100 mg Hydromorphone HCl (Dilaudid) 2 mg IVP Q3 PRN PRN Reason: Pain, severe (8-10) Last Admin: 08/22/17 21:25 Dose: 2 mg Cefepime HCl (Maxipime Iv 1 Gm Premix) 1 gm in 50 mls @ 100 mls/hr IVPB Q12H [facility] PRN Reason: Protocol Last Admin: 08/22/17 19:00 Dose: 100 mls/hr Pantoprazole Sodium (Protonix Ec Tab) 40 mg PO DAILY [facility] Last Admin: 08/22/17 09:12 Dose: 40 mg Polyethylene Glycol (Miralax) 17 gm PO DAILY [facility] Last Admin: 08/22/17 09:12 Dose: 17 gm Senna/Docusate Sodium (Senokot S 50 Mg-8.6 Mg) 2 tab PO HS [facility] Last Admin: 08/22/17 21:27 Dose: 2 tab - Labs Labs: 08/22/17 07:46 08/22/17 07:46 - Head Exam Head Exam: ATRAUMATIC - Eye Exam Eye Exam: Normal appearance - ENT Exam ENT Exam: Mucous Membranes Dry - Respiratory Exam Respiratory Exam: NORMAL BREATHING PATTERN - Cardiovascular Exam Cardiovascular Exam: +S1, +S2 - GI/Abdominal Exam GI & Abdominal Exam: Normal Bowel Sounds Assessment and Plan (1) Pancytopenia Assessment & Plan: multifactorial bone metastasis, radiation treatment severe neutropenia, will give Granix s/p PRBC transfusion Status: Acute (2) Metastatic malignant neoplasm to prostate Assessment & Plan: bone and lymph node metastasis on androgen deprivation therapy and palliative radiotherapy outpatient treatment Status: Acute
[2017-08-23] MEDS ORDERED: Fluconazole IV 200mg/100 ml NS 100 ML IVPB ONE (03:00)
[2017-08-23] MEDS: HYDROmorphone 1 mg/ml ISec IVP PRN ×4 (04:12→19:59)
[2017-08-23] MEDS: Cefepime IV 1 gm in Dextrose 1 GM/50 ML BAG IVPB SCH ×2 (05:21→17:42)
[2017-08-23 06:55] LABS: BASO % 0.6 % (0.0-2.0); EOS % 1.2 % (0.0-4.0); HEMOGLOBIN 8.4 g/dL (12.0-18.0); LYMPH # 0.3 K/uL (1.0-4.3); MEAN CORPUSCULAR HEMOGLOBIN 30.5 pg (27.0-31.0); MEAN PLATELET VOLUME 8.1 fL (7.2-11.7); MONO % 1.1 % (0.0-10.0); NEUT # 0.5 K/uL (1.8-7.0); NEUT % 61.1 % (50.0-75.0); NRBC % 0.4 % (0.0-2.0); RBC 2.74 Mil/uL (4.40-5.90); RED CELL DISTRIBUTION WIDTH 15.6 % (11.5-14.5)
[2017-08-23 06:57] LABS: WHITE BLOOD COUNT 0.8 K/uL (4.8-10.8)
[2017-08-23 07:08] LABS: ALB/GLOB RATIO 1.1 (1.0-2.1); ALBUMIN 3.1 g/dL (3.5-5.0); ALT/SGPT 16 U/L (21-72); AST/SGOT 35 U/L (17-59); BLOOD UREA NITROGEN 9 mg/dL (9-20); CALCIUM 7.4 mg/dl (8.6-10.4); GFR AFRICAN-AMERICAN > 60; GFR NON-AFRICAN AMERICAN > 60
[2017-08-23] MEDS: POLYETHYLENE GLYCOL 3350 17 GM/Dose PACKET PO SCH (09:56)
[2017-08-23] MEDS: Pantoprazole 40 mg EC Tab PO SCH (09:56)
--- NOTE | 2017-08-23 15:33 | CP.PCM.PN ---
Subjective - Date & Time of Evaluation Date of Evaluation: 08/23/17 Time of Evaluation: 08:00 - Subjective Subjective: clinically same Objective - Vital Signs/Intake and Output Vital Signs (last 24 hours): Temp Pulse Resp BP Pulse Ox 98.7 F 94 H 20 124/71 95 08/23/17 08:00 08/23/17 15:00 08/23/17 15:00 08/23/17 15:00 08/23/17 15:00 Intake and Output: 08/23/17 08/23/17 06:59 18:59 Intake Total 640 Balance 640 - Medications Medications: Current Medications Acetaminophen (Tylenol 325mg Tab) 650 mg PO Q8 PRN PRN Reason: Fever >100.4 F Last Admin: 08/22/17 17:09 Dose: 650 mg Dicyclomine HCl (Bentyl) 10 mg PO QID [facility] Last Admin: 08/23/17 14:34 Dose: 10 mg Docusate Sodium (Colace) 100 mg PO TID [facility] Last Admin: 08/23/17 14:34 Dose: 100 mg Hydromorphone HCl (Dilaudid) 2 mg IVP Q3 PRN PRN Reason: Pain, severe (8-10) Last Admin: 08/23/17 14:34 Dose: 2 mg Cefepime HCl (Maxipime Iv 1 Gm Premix) 1 gm in 50 mls @ 100 mls/hr IVPB Q12H [facility] PRN Reason: Protocol Last Admin: 08/23/17 05:21 Dose: 100 mls/hr Pantoprazole Sodium (Protonix Ec Tab) 40 mg PO DAILY [facility] Last Admin: 08/23/17 09:56 Dose: 40 mg Polyethylene Glycol (Miralax) 17 gm PO DAILY [facility] Last Admin: 08/23/17 09:56 Dose: 17 gm Senna/Docusate Sodium (Senokot S 50 Mg-8.6 Mg) 2 tab PO HS [facility] Last Admin: 08/22/17 21:27 Dose: 2 tab - Labs Labs: 08/23/17 06:45 08/23/17 06:45 - Constitutional Appears: Well - Eye Exam Eye Exam: EOMI, Normal appearance, PERRL Pupil Exam: NORMAL ACCOMODATION, PERRL - ENT Exam ENT Exam: Mucous Membranes Moist, Normal Exam - Neck Exam Neck Exam: Full ROM, Normal Inspection. absent: Lymphadenopathy - Respiratory Exam Respiratory Exam: Decreased Breath Sounds - Cardiovascular Exam Cardiovascular Exam: REGULAR RHYTHM, +S1, +S2 - GI/Abdominal Exam GI & Abdominal Exam: Soft, Diminished Bowel Sounds - Rectal Exam Rectal Exam: Deferred
[2017-08-23] MEDS: Mupirocin 2% Ointment (NASAL) NAS SCH (17:42)
[2017-08-23] MEDS: Vancomycin 1 gm/NS 200 ml 1 GM/200 ML BAG IVPB SCH (18:42)
[2017-08-23] MEDS: Fluconazole IV 200mg/100 ml NS 100 MG in Premixed IV 1 EA IVPB SCH (20:01)
[2017-08-23] MEDS: Docusate-Senna 50 mg-8.6 mg Tab PO SCH (21:15)
--- NOTE | 2017-08-23 23:27 | CP.PCM.PN ---
Subjective - Date & Time of Evaluation Date of Evaluation: 08/23/17 Time of Evaluation: 23:27 - Subjective Subjective: CHIEF COMPLAINTS TODAY : SPIKING TEMP 101.2 C/O ABDOMINAL PAIN FREQUENCY OF URINE +VE MRSA NARES ROS. HEENT : N. Resp : No cough, wheezing ,pleuritic CP ,or hemoptysis Cardio : No anginal CP, PND, orthopnea, palpitation GI : ABDOMINAL PAIN EPIGASTRIUM, n/v ,diarrhea or GI bleeding . [employer]S ANALYST : No headache, vertigo, focal deficit. Musculoskel : No joint swelling , Derm : No rash Psych : Normal affect. Ext : No swelling ,calf pain PE. Pt. is alert awake in no distress. V.S As noted in the chart Head ,ear nose,throat and eyes : Normal. Neck : Supple with normal carotids. Lungs: Clear air entry. Heart : S1 & S2 normal with S4. No murmur. Abd : +VE TENDERNESS MID ABDOMEN /EPIGASTRIUM with normal bowel sounds. Neuro : Moves all ext. with no localized deficit. Ext : No edema with intact pulses.Non tender calves Derm : No rashes or decubitus ulcer. LABS/RADIOLOGY: REVIEWED WBC 0.8 BLOOD CULTURES -VE X 24HRS ASSESSMENT NEUTRPENIC FEVERS METASTATIC CA PROSTRATE. ESOPHAGITIS VI S/P EGD ABDOMINAL PAIN /PLAN : REPEAT 2 SET BLOOD CULTURES CONTINUE iv CEFEPIME 1 G EVERY 12 HOURLY 08/22/17. CONTINUE IV DIFLUCAN 200 MG LOADING DOSE F/U 100 MG ONCE A DAY DAILY 08/22/17. ADD IV VANCOMYCIN 1GM IVPB Q 24HRLY DAILY.08/23/17 BACTOBEN CREAM LOCALLY TO NARIS BID X 7 DAYS. fOLLOW-UP BLOOD CULTURES AND URINE CULTURES TO ADJUST ANTIBIOTICS. CONTACT PRECAUTIONS Objective - Vital Signs/Intake and Output Vital Signs (last 24 hours): Temp Pulse Resp BP Pulse Ox 100 F H 94 H 20 124/71 95 08/23/17 21:00 08/23/17 15:00 08/23/17 15:00 08/23/17 15:00 08/23/17 15:00 Intake and Output: 08/23/17 08/24/17 18:59 06:59 Intake Total 300 Balance 300 - Medications Medications: Current Medications Acetaminophen (Tylenol 325mg Tab) 650 mg PO Q8 PRN PRN Reason: Fever >100.4 F Last Admin: 08/22/17 17:09 Dose: 650 mg Dicyclomine HCl (Bentyl) 10 mg PO QID [facility] Last Admin: 08/23/17 21:15 Dose: 10 mg Docusate Sodium (Colace) 100 mg PO TID [facility] Last Admin: 08/23/17 17:44 Dose: 100 mg Hydromorphone HCl (Dilaudid) 2 mg IVP Q3 PRN PRN Reason: Pain, severe (8-10) Last Admin: 08/23/17 19:59 Dose: 2 mg Cefepime HCl (Maxipime Iv 1 Gm Premix) 1 gm in 50 mls @ 100 mls/hr IVPB Q12H [facility] PRN Reason: Protocol Last Admin: 08/23/17 17:42 Dose: 100 mls/hr Fluconazole 100 mg/ (Miscellaneous) 50 mls @ 100 mls/hr IVPB DAILY [facility] PRN Reason: Protocol Last Admin: 08/23/17 20:01 Dose: 100 mls/hr Vancomycin/Sodium Chloride (Vancomycin 1 Gm/Ns 200 Ml) 1 gm in 200 mls @ 166.7 mls/hr IVPB Q24H [facility] PRN Reason: Protocol Stop: 08/28/17 18:01 Last Admin: 08/23/17 18:42 Dose: 166.7 mls/hr Mupirocin (Bactroban 2% Nasal) 0.25 gm JORDON BID [facility] Stop: 08/30/17 18:01 Last Admin: 08/23/17 17:42 Dose: 0.25 gm Pantoprazole Sodium (Protonix Ec Tab) 40 mg PO DAILY [facility] Last Admin: 08/23/17 09:56 Dose: 40 mg Polyethylene Glycol (Miralax) 17 gm PO DAILY [facility] Last Admin: 08/23/17 09:56 Dose: 17 gm Senna/Docusate Sodium (Senokot S 50 Mg-8.6 Mg) 2 tab PO HS [facility] Last Admin: 08/23/17 21:15 Dose: 2 tab - Labs Labs: 08/23/17 06:45 08/23/17 06:45 Assessment and Plan (1) Pancytopenia Status: Acute (2) Abdominal pain Status: Acute (3) Esophagitis Status: Acute (4) Metastatic malignant neoplasm to prostate Status: Acute
[2017-08-24] MEDS: HYDROmorphone 1 mg/ml ISec IVP PRN ×6 (01:57→23:46)
[2017-08-24] MEDS: Cefepime IV 1 gm in Dextrose 1 GM/50 ML BAG IVPB SCH ×2 (05:39→17:22)
[2017-08-24 07:33] LABS: BASO % 0.5 % (0.0-2.0); HEMOGLOBIN 8.1 g/dL (12.0-18.0); LYMPH # 0.3 K/uL (1.0-4.3); LYMPH % 34.2 % (20.0-40.0); MEAN CELL VOLUME 87.3 fL (80.0-94.0); MEAN CORPUSCULAR HEMOGLOBIN 31.5 pg (27.0-31.0); MEAN CORPUSCULAR HGB CONC 36.1 g/dL (33.0-37.0); MONO % 0.8 % (0.0-10.0); NEUT # 0.6 K/uL (1.8-7.0); NEUT % 63.5 % (50.0-75.0); NRBC % 0.2 % (0.0-2.0); RBC 2.57 Mil/uL (4.40-5.90); RED CELL DISTRIBUTION WIDTH 16.3 % (11.5-14.5)
[2017-08-24 07:40] LABS: WHITE BLOOD COUNT 0.9 K/uL (4.8-10.8)
[2017-08-24 07:48] LABS: ALB/GLOB RATIO 1.1 (1.0-2.1); ALBUMIN 3.2 g/dL (3.5-5.0); ALT/SGPT 20 U/L (21-72); AST/SGOT 36 U/L (17-59); BLOOD UREA NITROGEN 9 mg/dL (9-20); CALCIUM 7.3 mg/dl (8.6-10.4); GFR AFRICAN-AMERICAN > 60; GFR NON-AFRICAN AMERICAN > 60
--- NOTE | 2017-08-24 09:55 | CP.PCM.PN ---
<Alexander Solis - Last Filed: 08/24/17 11:50> Subjective - Date & Time of Evaluation Date of Evaluation: 08/24/17 Time of Evaluation: 09:10 - Subjective Subjective: PGY2 Medicine Note for Dr. Osmin Pavon Patient seen and examined at bedside this morning. Patient experienced fever of 100.9 this morning. Patient states he is feeling well. He has no complaints at this time. Denies having fever, chills, headache, coughs, shortness of breath, chest pain, nausea, or vomiting. Objective - Vital Signs/Intake and Output Vital Signs (last 24 hours): Temp Pulse Resp BP Pulse Ox 100.9 F H 100 H 20 115/69 94 L 08/24/17 08:19 08/24/17 07:14 08/24/17 07:14 08/24/17 07:14 08/24/17 07:14 Intake and Output: 08/24/17 08/24/17 06:59 18:59 Intake Total 590 Balance 590 - Medications Medications: Current Medications Acetaminophen (Tylenol 325mg Tab) 650 mg PO Q8 PRN PRN Reason: Fever >100.4 F Last Admin: 08/24/17 08:19 Dose: 650 mg Dicyclomine HCl (Bentyl) 10 mg PO QID [facility] Last Admin: 08/23/17 21:15 Dose: 10 mg Docusate Sodium (Colace) 100 mg PO TID [facility] Last Admin: 08/23/17 17:44 Dose: 100 mg Hydromorphone HCl (Dilaudid) 2 mg IVP Q3 PRN PRN Reason: Pain, severe (8-10) Last Admin: 08/24/17 07:06 Dose: 2 mg Cefepime HCl (Maxipime Iv 1 Gm Premix) 1 gm in 50 mls @ 100 mls/hr IVPB Q12H [facility] PRN Reason: Protocol Last Admin: 08/24/17 05:39 Dose: 100 mls/hr Fluconazole 100 mg/ (Miscellaneous) 50 mls @ 100 mls/hr IVPB DAILY [facility] PRN Reason: Protocol Last Admin: 08/23/17 20:01 Dose: 100 mls/hr Vancomycin/Sodium Chloride (Vancomycin 1 Gm/Ns 200 Ml) 1 gm in 200 mls @ 166.7 mls/hr IVPB Q24H [facility] PRN Reason: Protocol Stop: 08/28/17 18:01 Last Admin: 08/23/17 18:42 Dose: 166.7 mls/hr Mupirocin (Bactroban 2% Nasal) 0.25 gm JORDON BID [facility] Stop: 08/30/17 18:01 Last Admin: 08/23/17 17:42 Dose: 0.25 gm Pantoprazole Sodium (Protonix Ec Tab) 40 mg PO DAILY [facility] Last Admin: 08/23/17 09:56 Dose: 40 mg Polyethylene Glycol (Miralax) 17 gm PO DAILY [facility] Last Admin: 08/23/17 09:56 Dose: 17 gm Senna/Docusate Sodium (Senokot S 50 Mg-8.6 Mg) 2 tab PO HS [facility] Last Admin: 08/23/17 21:15 Dose: 2 tab - Labs Labs: 08/24/17 07:16 08/24/17 07:16 - Constitutional Appears: Non-toxic, No Acute Distress - Head Exam Head Exam: ATRAUMATIC, NORMOCEPHALIC - Eye Exam Eye Exam: Normal appearance - ENT Exam ENT Exam: Mucous Membranes Moist - Respiratory Exam Respiratory Exam: NORMAL BREATHING PATTERN. absent: Accessory Muscle Use, Respiratory Distress - Cardiovascular Exam Cardiovascular Exam: REGULAR RHYTHM, +S1, +S2 - GI/Abdominal Exam GI & Abdominal Exam: Soft, Normal Bowel Sounds. absent: Distended, Firm, Guarding, Rigid, Tenderness - Extremities Exam Extremities Exam: Normal Inspection. absent: Calf Tenderness - Neurological Exam Neurological Exam: Alert, Awake, Oriented x3 - Psychiatric Exam Psychiatric exam: Normal Affect, Normal Mood - Skin Skin Exam: Warm Assessment and Plan - Assessment and Plan (Free Text) Plan: Pancytopenia w/fever -WBC 0.9 s/p 2 doses of Granix -Hgb 8.1 S/P 3u PRBC -Platelet 33 -Follow heme/onc recommendations -ID consulted, Dr. 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 Pavon <Vazquez Pavon - Last Filed: 08/27/17 23:37> Objective - Vital Signs/Intake and Output Vital Signs (last 24 hours): Temp Pulse Resp BP Pulse Ox 102.4 F H 137 H 37 H 94/64 L 90 L 08/27/17 20:00 08/27/17 22:00 08/27/17 22:00 08/27/17 21:55 08/27/17 22:00 Intake and Output: 08/27/17 08/28/17 18:59 06:59 Intake Total 1142.6 33.8 Output Total 55 10 Balance 1087.6 23.8 - Medications Medications: Current Medications Acetaminophen (Tylenol 325mg Tab) 650 mg PO Q8 PRN PRN Reason: Fever >100.4 F Last Admin: 08/27/17 07:16 Dose: 650 mg Albuterol/Ipratropium (Duoneb 3 Mg/0.5 Mg (3 Ml) Ud) 3 ml INH RQ6 [facility] Last Admin: 08/27/17 19:18 Dose: Not Given Atovaquone (Mepron) 1,500 mg PO DAILY [facility] PRN Reason: Protocol Last Admin: 08/27/17 14:23 Dose: Not Given Docusate Sodium (Colace) 100 mg PO DAILY [facility] Hydrocortisone Sodium Succinate (Solu-Cortef) 100 mg IV Q8 [facility] Last Admin: 08/27/17 21:51 Dose: 100 mg Hydromorphone HCl (Dilaudid) 2 mg IVP Q3H PRN PRN Reason: Pain, severe (8-10) Last Admin: 08/27/17 05:11 Dose: 2 mg Vancomycin/Sodium Chloride (Vancomycin 1 Gm/Ns 200 Ml) 1 gm in 200 mls @ 167 mls/hr IVPB Q24H [facility] PRN Reason: Protocol Stop: 08/30/17 18:01 Last Admin: 08/27/17 18:26 Dose: 167 mls/hr Meropenem (Merrem Iv 1 Gm Premix) 50 mls @ 100 mls/hr IVPB Q8 [facility] PRN Reason: Protocol Last Admin: 08/27/17 21:51 Dose: 100 mls/hr Fluconazole (Diflucan Iv 100 Mg/50 Ml Ns) 50 mls @ 100 mls/hr IVPB DAILY [facility] PRN Reason: Protocol Last Admin: 08/27/17 11:32 Dose: 100 mls/hr Phenylephrine HCl 30 mg/ (Sodium Chloride) 253 mls @ 20.23 mls/hr IV .[id number] PRN; Protocol; 40 MCG/MIN PRN Reason: TITRATE PER MD ORDER Last Admin: 08/27/17 12:00 Dose: 40 mcg/min, 20.23 mls/hr Propofol (Diprivan) 1,000 mg in 100 mls @ 2.218 mls/hr IV .Q24H PRN; Protocol; 5 MCG/KG/MIN PRN Reason: TITRATE PER MD ORDER Last Admin: 08/27/17 18:46 Dose: 40 mcg/kg/min, 17.745 mls/hr Dexmedetomidine HCl 200 mcg/ (Sodium Chloride) 50 mls @ 3.69 mls/hr IV TITR PRN ; Protocol; 0.2 MCG/KG/HR PRN Reason: Sedation Last Admin: 08/27/17 16:46 Dose: 0.2 mcg/kg/hr, 3.69 mls/hr Doxycycline Hyclate 100 mg/ (Sodium Chloride) 100 mls @ 100 mls/hr IVPB Q12H [facility] PRN Reason: Protocol Last Admin: 08/27/17 17:33 Dose: 100 mls/hr Insulin Aspart (Novolog) 0 unit SC Q6 [facility] PRN Reason: Protocol Last Admin: 08/27/17 17:36 Dose: 1 u Mupirocin (Bactroban 2% Nasal) 0.25 gm JORDON BID [facility] Stop: 08/30/17 18:01 Last Admin: 08/27/17 17:35 Dose: 0.25 gm Pantoprazole Sodium (Protonix Inj) 40 mg IVP Q12H [facility] Last Admin: 08/27/17 16:55 Dose: 40 mg Senna/Docusate Sodium (Senokot S 50 Mg-8.6 Mg) 1 tab GT DAILY [facility] - Labs Labs: 08/27/17 13:55 08/27/17 13:55 PT 15.6 SECONDS (9.7-12.2) H 08/27/17 16:02 INR 1.4 08/27/17 16:02 APTT 39 SECONDS (21-34) H 08/27/17 16:02 Assessment and Plan (1) Acute respiratory failure Status: Acute (2) Anemia Status: Acute (3) Chronic pain Status: Acute (4) Esophagitis Status: Acute (5) Gastritis Status: Acute (6) Pancytopenia Status: Acute (7) Abdominal pain Status: Acute (8) Chest discomfort Status: Acute (9) Constipation Status: Acute (10) Intractable abdominal pain Status: Acute (11) Metastatic malignant neoplasm to prostate Status: Acute (12) Neutropenia Status: Acute Attending/Attestation - Attestation I have personally seen and examined this patient.: Yes I have fully participated in the care of the patient.: Yes I have reviewed all pertinent clinical information, including history, physical exam and plan: Yes Notes (Text): 08/27/17 23:37 case beryl fatima
[2017-08-24] MEDS: Fluconazole IV 200mg/100 ml NS 100 MG in Premixed IV 1 EA IVPB SCH (10:14)
[2017-08-24] MEDS: Pantoprazole 40 mg EC Tab PO SCH (10:14)
[2017-08-24] MEDS: POLYETHYLENE GLYCOL 3350 17 GM/Dose PACKET PO SCH (10:14)
[2017-08-24] MEDS: Mupirocin 2% Ointment (NASAL) NAS SCH ×2 (10:14→17:22)
--- NOTE | 2017-08-24 13:32 | CP.PCM.PN ---
Subjective - Date & Time of Evaluation Date of Evaluation: 08/24/17 Time of Evaluation: 13:32 - Subjective Subjective: CHIEF COMPLAINTS TODAY : temp this am 100.9 denies abdominal pain ' denies dysphagia +VE MRSA NARES ROS. HEENT : N. Resp : No cough, wheezing ,pleuritic CP ,or hemoptysis Cardio : No anginal CP, PND, orthopnea, palpitation GI : ABDOMINAL PAIN improving, n/v ,diarrhea or GI bleeding . [employer] : No headache, vertigo, focal deficit. Musculoskel : No joint swelling , Derm : No rash Psych : Normal affect. Ext : No swelling ,calf pain PE. Pt. is alert awake in no distress. V.S As noted in the chart Head ,ear nose,throat and eyes : Normal. Neck : Supple with normal carotids. Lungs: Clear air entry. Heart : S1 & S2 normal with S4. No murmur. Abd : SOFT, NON TENDER , with normal bowel sounds. Neuro : Moves all ext. with no localized deficit. Ext : No edema with intact pulses.Non tender calves Derm : No rashes or decubitus ulcer. LABS/RADIOLOGY: REVIEWED WBC 0.9 BLOOD CULTURES -VE X 24HRS ASSESSMENT NEUTRPENIC FEVERS METASTATIC CA PROSTRATE. ESOPHAGITIS VI S/P EGD ABDOMINAL PAIN-IMPROVING /PLAN : REPEAT 2 SET BLOOD CULTURES -P CONTINUE iv CEFEPIME 1 G EVERY 12 HOURLY 08/22/17. CONTINUE IV DIFLUCAN 200 MG LOADING DOSE F/U 100 MG ONCE A DAY DAILY 08/22/17. CONTINUE IV VANCOMYCIN 1GM IVPB Q 24HRLY DAILY.08/23/17 BACTOBEN CREAM LOCALLY TO NARIS BID X 7 DAYS. fOLLOW-UP BLOOD CULTURES AND URINE CULTURES TO ADJUST ANTIBIOTICS. PT ON GRANIX CONTACT PRECAUTIONS. Objective - Vital Signs/Intake and Output Vital Signs (last 24 hours): Temp Pulse Resp BP Pulse Ox 100.9 F H 100 H 20 115/69 94 L 08/24/17 08:19 08/24/17 07:14 08/24/17 07:14 08/24/17 07:14 08/24/17 07:14 Intake and Output: 08/24/17 08/24/17 06:59 18:59 Intake Total 590 Balance 590 - Medications Medications: Current Medications Acetaminophen (Tylenol 325mg Tab) 650 mg PO Q8 PRN PRN Reason: Fever >100.4 F Last Admin: 08/24/17 08:19 Dose: 650 mg Dicyclomine HCl (Bentyl) 10 mg PO QID [facility] Last Admin: 08/24/17 10:15 Dose: 10 mg Docusate Sodium (Colace) 100 mg PO TID [facility] Last Admin: 08/24/17 10:14 Dose: 100 mg Hydromorphone HCl (Dilaudid) 2 mg IVP Q3 PRN PRN Reason: Pain, severe (8-10) Last Admin: 08/24/17 11:51 Dose: 2 mg Cefepime HCl (Maxipime Iv 1 Gm Premix) 1 gm in 50 mls @ 100 mls/hr IVPB Q12H RENAN PRN Reason: Protocol Last Admin: 08/24/17 05:39 Dose: 100 mls/hr Fluconazole 100 mg/ (Miscellaneous) 50 mls @ 100 mls/hr IVPB DAILY [facility] PRN Reason: Protocol Last Admin: 08/24/17 10:14 Dose: 100 mls/hr Vancomycin/Sodium Chloride (Vancomycin 1 Gm/Ns 200 Ml) 1 gm in 200 mls @ 166.7 mls/hr IVPB Q24H RENAN PRN Reason: Protocol Stop: 08/28/17 18:01 Last Admin: 08/23/17 18:42 Dose: 166.7 mls/hr Mupirocin (Bactroban 2% Nasal) 0.25 gm JORDON BID [facility] Stop: 08/30/17 18:01 Last Admin: 08/24/17 10:14 Dose: 0.25 gm Pantoprazole Sodium (Protonix Ec Tab) 40 mg PO DAILY [facility] Last Admin: 08/24/17 10:14 Dose: 40 mg Polyethylene Glycol (Miralax) 17 gm PO DAILY [facility] Last Admin: 08/24/17 10:14 Dose: 17 gm Senna/Docusate Sodium (Senokot S 50 Mg-8.6 Mg) 2 tab PO [facility] Last Admin: 08/23/17 21:15 Dose: 2 tab - Labs Labs: 08/24/17 07:16 08/24/17 07:16 Assessment and Plan (1) Pancytopenia Status: Acute (2) Abdominal pain Status: Acute (3) Esophagitis Status: Acute (4) Metastatic malignant neoplasm to prostate Status: Acute
[2017-08-24] MEDS: Vancomycin 1 gm/NS 200 ml 1 GM/200 ML BAG IVPB SCH (18:09)
--- NOTE | 2017-08-24 20:32 | CP.PCM.PN ---
Subjective - Date & Time of Evaluation Date of Evaluation: 08/24/17 Time of Evaluation: 09:00 - Subjective Subjective: clinically same Objective - Vital Signs/Intake and Output Vital Signs (last 24 hours): Temp Pulse Resp BP Pulse Ox 99.6 F 98 H 18 105/68 98 08/24/17 15:00 08/24/17 15:00 08/24/17 15:00 08/24/17 15:00 08/24/17 15:00 Intake and Output: 08/24/17 08/25/17 18:59 06:59 Intake Total 300 Balance 300 - Medications Medications: Current Medications Acetaminophen (Tylenol 325mg Tab) 650 mg PO Q8 PRN PRN Reason: Fever >100.4 F Last Admin: 08/24/17 08:19 Dose: 650 mg Dicyclomine HCl (Bentyl) 10 mg PO QID [facility] Last Admin: 08/24/17 17:22 Dose: 10 mg Docusate Sodium (Colace) 100 mg PO TID [facility] Last Admin: 08/24/17 17:22 Dose: 100 mg Hydromorphone HCl (Dilaudid) 2 mg IVP Q3 PRN PRN Reason: Pain, severe (8-10) Last Admin: 08/24/17 19:14 Dose: 2 mg Cefepime HCl (Maxipime Iv 1 Gm Premix) 1 gm in 50 mls @ 100 mls/hr IVPB Q12H [facility] PRN Reason: Protocol Last Admin: 08/24/17 17:22 Dose: 100 mls/hr Fluconazole 100 mg/ (Miscellaneous) 50 mls @ 100 mls/hr IVPB DAILY [facility] PRN Reason: Protocol Last Admin: 08/24/17 10:14 Dose: 100 mls/hr Mupirocin (Bactroban 2% Nasal) 0.25 gm JORDON BID [facility] Stop: 08/30/17 18:01 Last Admin: 08/24/17 17:22 Dose: 0.25 gm Pantoprazole Sodium (Protonix Ec Tab) 40 mg PO DAILY [facility] Last Admin: 08/24/17 10:14 Dose: 40 mg Polyethylene Glycol (Miralax) 17 gm PO DAILY [facility] Last Admin: 08/24/17 10:14 Dose: 17 gm Senna/Docusate Sodium (Senokot S 50 Mg-8.6 Mg) 2 tab PO HS [facility] Last Admin: 08/23/17 21:15 Dose: 2 tab - Labs Labs: 08/24/17 07:16 08/24/17 07:16 - Constitutional Appears: Well - Head Exam Head Exam: ATRAUMATIC, NORMAL INSPECTION, NORMOCEPHALIC - Eye Exam Eye Exam: EOMI, Normal appearance, PERRL Pupil Exam: NORMAL ACCOMODATION, PERRL - ENT Exam ENT Exam: Mucous Membranes Moist, Normal Exam - Neck Exam Neck Exam: Full ROM, Normal Inspection. absent: Lymphadenopathy - Respiratory Exam Respiratory Exam: Decreased Breath Sounds - Cardiovascular Exam Cardiovascular Exam: REGULAR RHYTHM, +S1, +S2 - GI/Abdominal Exam GI & Abdominal Exam: Soft, Diminished Bowel Sounds - Rectal Exam Rectal Exam: Deferred Assessment and Plan - Assessment and Plan (Free Text) Plan: Pancytopenia w/fever -WBC 0.9 s/p 2 doses of Granix -Hgb 8.1 S/P 3u PRBC -Platelet 33 -Follow heme/onc recommendations -ID consulted, Dr. 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
[2017-08-24] MEDS: Docusate-Senna 50 mg-8.6 mg Tab PO SCH (21:15)
[2017-08-25] MEDS: HYDROmorphone 1 mg/ml ISec IVP PRN ×5 (04:41→22:36)
[2017-08-25] MEDS: Cefepime IV 1 gm in Dextrose 1 GM/50 ML BAG IVPB SCH ×2 (05:10→17:27)
[2017-08-25 06:36] LABS: BASO % 0.4 % (0.0-2.0); EOS % 0.7 % (0.0-4.0); HEMOGLOBIN 7.7 g/dL (12.0-18.0); LYMPH # 0.2 K/uL (1.0-4.3); LYMPH % 26.8 % (20.0-40.0); MEAN CELL VOLUME 86.4 fL (80.0-94.0); MEAN CORPUSCULAR HEMOGLOBIN 30.7 pg (27.0-31.0); MEAN CORPUSCULAR HGB CONC 35.6 g/dL (33.0-37.0); MEAN PLATELET VOLUME 8.4 fL (7.2-11.7); MONO % 1.2 % (0.0-10.0); NEUT # 0.5 K/uL (1.8-7.0); NEUT % 70.9 % (50.0-75.0); RBC 2.52 Mil/uL (4.40-5.90); RED CELL DISTRIBUTION WIDTH 16.4 % (11.5-14.5)
[2017-08-25 06:47] LABS: ALBUMIN 3.2 g/dL (3.5-5.0); ALT/SGPT 31 U/L (21-72); AST/SGOT 40 U/L (17-59); BLOOD UREA NITROGEN 8 mg/dL (9-20); CALCIUM 7.4 mg/dl (8.6-10.4); GFR AFRICAN-AMERICAN > 60; GFR NON-AFRICAN AMERICAN > 60
[2017-08-25 06:57] LABS: WHITE BLOOD COUNT 0.8 K/uL (4.8-10.8)
[2017-08-25] MEDS ORDERED: HYDROmorphone 1 mg/ml ISec IVP PRN (08:41)
--- NOTE | 2017-08-25 08:44 | CP.PCM.PN ---
<Kimberly Luna - Last Filed: 08/25/17 17:05> Subjective - Date & Time of Evaluation Date of Evaluation: 08/25/17 Time of Evaluation: 07:00 - Subjective Subjective: PGY2 Medicine Note for Dr. Osmin Pavon Patient seen and examined at bedside this morning. Patient experienced fever of 101.1 this morning. Patient states he is coughing yellow phlegm. Denies having chills, headache, coughs, shortness of breath, chest pain, nausea, or vomiting. Objective - Vital Signs/Intake and Output Vital Signs (last 24 hours): Temp Pulse Resp BP Pulse Ox 101.1 F H 95 H 18 113/70 96 08/25/17 08:31 08/25/17 07:36 08/25/17 07:36 08/25/17 07:36 08/25/17 07:36 Intake and Output: 08/25/17 08/25/17 06:59 18:59 Intake Total 950 Balance 950 - Medications Medications: Current Medications Acetaminophen (Tylenol 325mg Tab) 650 mg PO Q8 PRN PRN Reason: Fever >100.4 F Last Admin: 08/25/17 08:31 Dose: 650 mg Dicyclomine HCl (Bentyl) 10 mg PO QID [facility] Last Admin: 08/24/17 21:14 Dose: 10 mg Docusate Sodium (Colace) 100 mg PO TID [facility] Last Admin: 08/24/17 17:22 Dose: 100 mg Hydromorphone HCl (Dilaudid) 1 mg IVP Q3H PRN PRN Reason: Pain, severe (8-10) Cefepime HCl (Maxipime Iv 1 Gm Premix) 1 gm in 50 mls @ 100 mls/hr IVPB Q12H [facility] PRN Reason: Protocol Last Admin: 08/25/17 05:10 Dose: 100 mls/hr Mupirocin (Bactroban 2% Nasal) 0.25 gm JORDON BID [facility] Stop: 08/30/17 18:01 Last Admin: 08/24/17 17:22 Dose: 0.25 gm Pantoprazole Sodium (Protonix Ec Tab) 40 mg PO DAILY [facility] Last Admin: 08/24/17 10:14 Dose: 40 mg Polyethylene Glycol (Miralax) 17 gm PO DAILY [facility] Last Admin: 08/24/17 10:14 Dose: 17 gm Senna/Docusate Sodium (Senokot S 50 Mg-8.6 Mg) 2 tab PO HS [facility] Last Admin: 08/24/17 21:15 Dose: 2 tab - Labs Labs: 08/25/17 06:15 08/25/17 06:15 - Constitutional Appears: No Acute Distress - Head Exam Head Exam: ATRAUMATIC, NORMAL INSPECTION - Eye Exam Eye Exam: EOMI, Normal appearance, PERRL Pupil Exam: NORMAL ACCOMODATION - ENT Exam ENT Exam: Mucous Membranes Moist - Respiratory Exam Respiratory Exam: Clear to Ausculation Bilateral, NORMAL BREATHING PATTERN. absent: Accessory Muscle Use, Rales, Rhonchi, Wheezes - Cardiovascular Exam Cardiovascular Exam: REGULAR RHYTHM, +S1, +S2 - GI/Abdominal Exam GI & Abdominal Exam: Soft, Normal Bowel Sounds. absent: Tenderness - Extremities Exam Extremities Exam: Normal Inspection - Neurological Exam Neurological Exam: Alert, Awake, Oriented x3 - Psychiatric Exam Psychiatric exam: Normal Affect, Normal Mood - Skin Skin Exam: Normal Color Assessment and Plan - Assessment and Plan (Free Text) Assessment: Pancytopenia w/fever - WBC 0.8 s/p 2 doses of Granix - Platelet 33 -Follow heme/onc recommendations -ID consulted, Dr. 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 - f/u sputum culture - Guaifenesin 600mg po bid Gastritis -Currently stable -Recent endoscopy by at [place] revealed gastritis and coral infection -GI consulted, continue to follow recommendations Constipation -Colace 100mg TID -Senokot 2 tabs po HS -Miralax 17gm daily Prophylactic measures -Protonix -SCD - Florastor 250mg daily -VTE contraindicated due to pancytopenia All management per Dr. Pavon <Vazquez Pavon - Last Filed: 08/27/17 23:36> Objective - Vital Signs/Intake and Output Vital Signs (last 24 hours): Temp Pulse Resp BP Pulse Ox 102.4 F H 137 H 37 H 94/64 L 90 L 08/27/17 20:00 08/27/17 22:00 08/27/17 22:00 08/27/17 21:55 08/27/17 22:00 Intake and Output: 08/27/17 08/28/17 18:59 06:59 Intake Total 1142.6 33.8 Output Total 55 10 Balance 1087.6 23.8 - Medications Medications: Current Medications Acetaminophen (Tylenol 325mg Tab) 650 mg PO Q8 PRN PRN Reason: Fever >100.4 F Last Admin: 08/27/17 07:16 Dose: 650 mg Albuterol/Ipratropium (Duoneb 3 Mg/0.5 Mg (3 Ml) Ud) 3 ml INH RQ6 [facility] Last Admin: 08/27/17 19:18 Dose: Not Given Atovaquone (Mepron) 1,500 mg PO DAILY [facility] PRN Reason: Protocol Last Admin: 08/27/17 14:23 Dose: Not Given Docusate Sodium (Colace) 100 mg PO DAILY [facility] Hydrocortisone Sodium Succinate (Solu-Cortef) 100 mg IV Q8 [facility] Last Admin: 08/27/17 21:51 Dose: 100 mg Hydromorphone HCl (Dilaudid) 2 mg IVP Q3H PRN PRN Reason: Pain, severe (8-10) Last Admin: 08/27/17 05:11 Dose: 2 mg Vancomycin/Sodium Chloride (Vancomycin 1 Gm/Ns 200 Ml) 1 gm in 200 mls @ 167 mls/hr IVPB Q24H [facility] PRN Reason: Protocol Stop: 08/30/17 18:01 Last Admin: 08/27/17 18:26 Dose: 167 mls/hr Meropenem (Merrem Iv 1 Gm Premix) 50 mls @ 100 mls/hr IVPB Q8 [facility] PRN Reason: Protocol Last Admin: 08/27/17 21:51 Dose: 100 mls/hr Fluconazole (Diflucan Iv 100 Mg/50 Ml Ns) 50 mls @ 100 mls/hr IVPB DAILY [facility] PRN Reason: Protocol Last Admin: 08/27/17 11:32 Dose: 100 mls/hr Phenylephrine HCl 30 mg/ (Sodium Chloride) 253 mls @ 20.23 mls/hr IV .[id number] PRN; Protocol; 40 MCG/MIN PRN Reason: TITRATE PER MD ORDER Last Admin: 08/27/17 12:00 Dose: 40 mcg/min, 20.23 mls/hr Propofol (Diprivan) 1,000 mg in 100 mls @ 2.218 mls/hr IV .Q24H PRN; Protocol; 5 MCG/KG/MIN PRN Reason: TITRATE PER MD ORDER Last Admin: 08/27/17 18:46 Dose: 40 mcg/kg/min, 17.745 mls/hr Dexmedetomidine HCl 200 mcg/ (Sodium Chloride) 50 mls @ 3.69 mls/hr IV TITR PRN ; Protocol; 0.2 MCG/KG/HR PRN Reason: Sedation Last Admin: 08/27/17 16:46 Dose: 0.2 mcg/kg/hr, 3.69 mls/hr Doxycycline Hyclate 100 mg/ (Sodium Chloride) 100 mls @ 100 mls/hr IVPB Q12H [facility] PRN Reason: Protocol Last Admin: 08/27/17 17:33 Dose: 100 mls/hr Insulin Aspart (Novolog) 0 unit SC Q6 [facility] PRN Reason: Protocol Last Admin: 08/27/17 17:36 Dose: 1 u Mupirocin (Bactroban 2% Nasal) 0.25 gm JORDON BID [facility] Stop: 08/30/17 18:01 Last Admin: 08/27/17 17:35 Dose: 0.25 gm Pantoprazole Sodium (Protonix Inj) 40 mg IVP Q12H [facility] Last Admin: 08/27/17 16:55 Dose: 40 mg Senna/Docusate Sodium (Senokot S 50 Mg-8.6 Mg) 1 tab GT DAILY [facility] - Labs Labs: 08/27/17 13:55 08/27/17 13:55 PT 15.6 SECONDS (9.7-12.2) H 08/27/17 16:02 INR 1.4 08/27/17 16:02 APTT 39 SECONDS (21-34) H 08/27/17 16:02 Assessment and Plan (1) Acute respiratory failure Status: Acute (2) Anemia Status: Acute (3) Chronic pain Status: Acute (4) Esophagitis Status: Acute (5) Gastritis Status: Acute (6) Pancytopenia Status: Acute (7) Abdominal pain Status: Acute (8) Chest discomfort Status: Acute (9) Constipation Status: Acute (10) Intractable abdominal pain Status: Acute (11) Metastatic malignant neoplasm to prostate Status: Acute (12) Neutropenia Status: Acute Attending/Attestation - Attestation I have personally seen and examined this patient.: Yes I have fully participated in the care of the patient.: Yes I have reviewed all pertinent clinical information, including history, physical exam and plan: Yes Notes (Text): 08/27/17 23:36 case delores and steffi fatima
[2017-08-25] MEDS: Saccharomyces Boulardi 250 mg Cap PO SCH ×2 (09:46→17:26)
[2017-08-25] MEDS: Mupirocin 2% Ointment (NASAL) NAS SCH ×2 (09:46→17:26)
[2017-08-25] MEDS: Pantoprazole 40 mg EC Tab PO SCH (09:46)
[2017-08-25] MEDS: POLYETHYLENE GLYCOL 3350 17 GM/Dose PACKET PO SCH (09:46)
[2017-08-25] MEDS ORDERED: Bisacodyl 5mg EC Tab PO ONE (12:00)
--- NOTE | 2017-08-25 13:39 | RAD ---
HISTORY: cough COMPARISON: Chest radiograph dated 07/16/2016 FINDINGS: LUNGS: New left perihilar infiltrate. Prominent bronchovascular markings bilaterally. PLEURA: No significant pleural effusion identified, no pneumothorax apparent. CARDIOVASCULAR: Atherosclerotic aortic calcifications. Cardiomediastinal silhouette within normal limits. OSSEOUS STRUCTURES: Unchanged. VISUALIZED UPPER ABDOMEN: Normal. OTHER FINDINGS: None. IMPRESSION: New left perihilar infiltrate.
--- NOTE | 2017-08-25 15:33 | CP.PCM.PN ---
Subjective - Date & Time of Evaluation Date of Evaluation: 08/25/17 Time of Evaluation: 07:15 - Subjective Subjective: clinically same Objective - Vital Signs/Intake and Output Vital Signs (last 24 hours): Temp Pulse Resp BP Pulse Ox 98.9 F 93 H 20 93/69 L 96 08/25/17 13:26 08/25/17 13:26 08/25/17 13:26 08/25/17 13:26 08/25/17 07:36 Intake and Output: 08/25/17 08/25/17 06:59 18:59 Intake Total 950 0 Balance 950 0 - Medications Medications: Current Medications Acetaminophen (Tylenol 325mg Tab) 650 mg PO Q8 PRN PRN Reason: Fever >100.4 F Last Admin: 08/25/17 08:31 Dose: 650 mg Dicyclomine HCl (Bentyl) 10 mg PO QID [facility] Last Admin: 08/25/17 13:37 Dose: 10 mg Docusate Sodium (Colace) 100 mg PO TID [facility] Last Admin: 08/25/17 13:37 Dose: 100 mg Guaifenesin (Mucinex La) 600 mg PO BID [facility] Hydromorphone HCl (Dilaudid) 2 mg IVP Q3H PRN PRN Reason: Pain, severe (8-10) Last Admin: 08/25/17 12:15 Dose: 2 mg Cefepime HCl (Maxipime Iv 1 Gm Premix) 1 gm in 50 mls @ 100 mls/hr IVPB Q12H RENAN PRN Reason: Protocol Last Admin: 08/25/17 05:10 Dose: 100 mls/hr Mupirocin (Bactroban 2% Nasal) 0.25 gm JORDON BID [facility] Stop: 08/30/17 18:01 Last Admin: 08/25/17 09:46 Dose: 0.25 gm Pantoprazole Sodium (Protonix Ec Tab) 40 mg PO DAILY [facility] Last Admin: 08/25/17 09:46 Dose: 40 mg Polyethylene Glycol (Miralax) 17 gm PO DAILY [facility] Last Admin: 08/25/17 09:46 Dose: 17 gm Saccharomyces Boulardii (Florastor) 250 mg PO BID [facility] Last Admin: 08/25/17 09:46 Dose: 250 mg Senna/Docusate Sodium (Senokot S 50 Mg-8.6 Mg) 2 tab PO [facility] Last Admin: 08/24/17 21:15 Dose: 2 tab - Labs Labs: 08/25/17 06:15 08/25/17 06:15 - Constitutional Appears: Well - Head Exam Head Exam: ATRAUMATIC, NORMAL INSPECTION, NORMOCEPHALIC - Eye Exam Eye Exam: EOMI, Normal appearance, PERRL Pupil Exam: NORMAL ACCOMODATION, PERRL - ENT Exam ENT Exam: Mucous Membranes Moist, Normal Exam - Neck Exam Neck Exam: Full ROM, Normal Inspection. absent: Lymphadenopathy - Respiratory Exam Respiratory Exam: Decreased Breath Sounds - Cardiovascular Exam Cardiovascular Exam: +S1, +S2 - GI/Abdominal Exam GI & Abdominal Exam: Soft, Diminished Bowel Sounds - Rectal Exam Rectal Exam: Deferred Assessment and Plan - Assessment and Plan (Free Text) Plan: Pancytopenia w/fever - WBC 0.8 s/p 2 doses of Granix - Platelet 33 -Follow heme/onc recommendations -ID consulted, Dr. 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 - f/u sputum culture - Guaifenesin 600mg po bid Gastritis -Currently stable -Recent endoscopy by at [place] revealed gastritis and coral infection -GI consulted, continue to follow recommendations Constipation -Colace 100mg TID -Senokot 2 tabs po HS -Miralax 17gm daily Prophylactic measures -Protonix -SCD - Florastor 250mg daily -VTE contraindicated due to pancytopenia All management per Dr. Pavon
[2017-08-25] MEDS: guaiFENesin 600 mg ER Tab PO SCH (17:26)
[2017-08-25] MEDS: Vancomycin 1 gm/NS 200 ml 1 GM/200 ML BAG IVPB SCH (18:15)
[2017-08-25] MEDS: Docusate-Senna 50 mg-8.6 mg Tab PO SCH (21:11)
--- NOTE | 2017-08-25 22:55 | CP.PCM.PN ---
Subjective - Date & Time of Evaluation Date of Evaluation: 08/25/17 Time of Evaluation: 22:54 - Subjective Subjective: CHIEF COMPLAINTS TODAY : temp this am 101.2 denies abdominal pain ' denies dysphagia C/O COUGH +VE MRSA NARES ROS. HEENT : N. Resp : +VE cough, wheezing ,pleuritic CP ,or hemoptysis Cardio : No anginal CP, PND, orthopnea, palpitation GI : ABDOMINAL PAIN improving, n/v ,diarrhea or GI bleeding . SALES CONTRACT ADMINISTRATOR : No headache, vertigo, focal deficit. Musculoskel : No joint swelling , Derm : No rash Psych : Normal affect. Ext : No swelling ,calf pain PE. Pt. is alert awake in no distress. V.S As noted in the chart Head ,ear nose,throat and eyes : Normal. Neck : Supple with normal carotids. Lungs: RHONCHI LT SIDE. Heart : S1 & S2 REGULAR . No murmur. Abd : SOFT, NON TENDER , with normal bowel sounds. Neuro : Moves all ext. with no localized deficit. Ext : No edema with intact pulses.Non tender calves Derm : No rashes or decubitus ulcer. LABS/RADIOLOGY: REVIEWED WBC 0.8, H/H 7.7/21.8 BLOOD CULTURES -VE X TO DATE CXR 08/25/17 NEW LT PERIHILAR INFILTRATE ASSESSMENT NEUTRPENIC FEVERS NEW PNEUMONIA METASTATIC CA PROSTRATE. ESOPHAGITIS VI S/P EGD ABDOMINAL PAIN-IMPROVING /PLAN : START IV MERREM 1GM IVPB Q8HRLY FOR BROADER G-VE COVERAGE.. 08/26/17 DC iv CEFEPIME 1 G EVERY 12 HOURLY 08/22/17. CONTINUE IV DIFLUCAN 200 MG LOADING DOSE F/U 100 MG ONCE A DAY DAILY 08/22/17. CONTINUE IV VANCOMYCIN 1GM IVPB Q 24HRLY DAILY.08/23/17 BACTOBEN CREAM LOCALLY TO NARIS BID X 7 DAYS. F/U SPUTUM CULTURES- ORDERED fOLLOW-UP BLOOD CULTURES AND URINE CULTURES TO ADJUST ANTIBIOTICS. PT ON GRANIX CONTACT PRECAUTIONS. Objective - Vital Signs/Intake and Output Vital Signs (last 24 hours): Temp Pulse Resp BP Pulse Ox 102.7 F H 101 H 20 109/69 95 08/25/17 22:40 08/25/17 16:25 08/25/17 16:25 08/25/17 16:25 08/25/17 15:00 Intake and Output: 08/25/17 08/26/17 18:59 06:59 Intake Total 325 840 Balance 325 840 - Medications Medications: Current Medications Acetaminophen (Tylenol 325mg Tab) 650 mg PO Q8 PRN PRN Reason: Fever >100.4 F Last Admin: 08/25/17 22:41 Dose: 650 mg Dicyclomine HCl (Bentyl) 10 mg PO QID [facility] Last Admin: 08/25/17 21:11 Dose: 10 mg Docusate Sodium (Colace) 100 mg PO TID [facility] Last Admin: 08/25/17 17:26 Dose: 100 mg Guaifenesin (Mucinex La) 600 mg PO BID [facility] Last Admin: 08/25/17 17:26 Dose: 600 mg Hydromorphone HCl (Dilaudid) 2 mg IVP Q3H PRN PRN Reason: Pain, severe (8-10) Last Admin: 08/25/17 22:36 Dose: 2 mg Cefepime HCl (Maxipime Iv 1 Gm Premix) 1 gm in 50 mls @ 100 mls/hr IVPB Q12H [facility] PRN Reason: Protocol Last Admin: 08/25/17 17:27 Dose: 100 mls/hr Vancomycin/Sodium Chloride (Vancomycin 1 Gm/Ns 200 Ml) 1 gm in 200 mls @ 167 mls/hr IVPB Q24H RENAN PRN Reason: Protocol Stop: 08/30/17 18:01 Last Admin: 08/25/17 18:15 Dose: 167 mls/hr Mupirocin (Bactroban 2% Nasal) 0.25 gm JORDON BID [facility] Stop: 08/30/17 18:01 Last Admin: 08/25/17 17:26 Dose: 0.25 gm Pantoprazole Sodium (Protonix Ec Tab) 40 mg PO DAILY [facility] Last Admin: 08/25/17 09:46 Dose: 40 mg Polyethylene Glycol (Miralax) 17 gm PO DAILY [facility] Last Admin: 08/25/17 09:46 Dose: 17 gm Saccharomyces Boulardii (Florastor) 250 mg PO BID [facility] Last Admin: 08/25/17 17:26 Dose: 250 mg Senna/Docusate Sodium (Senokot S 50 Mg-8.6 Mg) 2 tab PO [facility] Last Admin: 08/25/17 21:11 Dose: 2 tab - Labs Labs: 08/25/17 06:15 08/25/17 06:15 Assessment and Plan (1) Pancytopenia Status: Acute (2) Abdominal pain Status: Acute (3) Esophagitis Status: Acute (4) Metastatic malignant neoplasm to prostate Status: Acute
--- NOTE | 2017-08-26 01:27 | CP.PCM.PN ---
Subjective - Date & Time of Evaluation Date of Evaluation: 08/23/17 Time of Evaluation: 12:00 - Subjective Subjective: No complaints. Objective - Vital Signs/Intake and Output Vital Signs (last 24 hours): Temp Pulse Resp BP Pulse Ox 102.8 F H 107 H 20 107/69 95 08/26/17 00:05 08/26/17 00:05 08/26/17 00:05 08/26/17 00:05 08/26/17 00:05 Intake and Output: 08/25/17 08/26/17 18:59 06:59 Intake Total 325 840 Balance 325 840 - Medications Medications: Current Medications Acetaminophen (Tylenol 325mg Tab) 650 mg PO Q8 PRN PRN Reason: Fever >100.4 F Last Admin: 08/25/17 22:41 Dose: 650 mg Dicyclomine HCl (Bentyl) 10 mg PO QID [facility] Last Admin: 08/25/17 21:11 Dose: 10 mg Docusate Sodium (Colace) 100 mg PO TID [facility] Last Admin: 08/25/17 17:26 Dose: 100 mg Guaifenesin (Mucinex La) 600 mg PO BID [facility] Last Admin: 08/25/17 17:26 Dose: 600 mg Hydromorphone HCl (Dilaudid) 2 mg IVP Q3H PRN PRN Reason: Pain, severe (8-10) Last Admin: 08/25/17 22:36 Dose: 2 mg Cefepime HCl (Maxipime Iv 1 Gm Premix) 1 gm in 50 mls @ 100 mls/hr IVPB Q12H [facility] PRN Reason: Protocol Last Admin: 08/25/17 17:27 Dose: 100 mls/hr Vancomycin/Sodium Chloride (Vancomycin 1 Gm/Ns 200 Ml) 1 gm in 200 mls @ 167 mls/hr IVPB Q24H [facility] PRN Reason: Protocol Stop: 08/30/17 18:01 Last Admin: 08/25/17 18:15 Dose: 167 mls/hr Mupirocin (Bactroban 2% Nasal) 0.25 gm JORDON BID [facility] Stop: 08/30/17 18:01 Last Admin: 08/25/17 17:26 Dose: 0.25 gm Pantoprazole Sodium (Protonix Ec Tab) 40 mg PO DAILY [facility] Last Admin: 08/25/17 09:46 Dose: 40 mg Polyethylene Glycol (Miralax) 17 gm PO DAILY [facility] Last Admin: 08/25/17 09:46 Dose: 17 gm Saccharomyces Boulardii (Florastor) 250 mg PO BID [facility] Last Admin: 08/25/17 17:26 Dose: 250 mg Senna/Docusate Sodium (Senokot S 50 Mg-8.6 Mg) 2 tab PO HS [facility] Last Admin: 08/25/17 21:11 Dose: 2 tab - Labs Labs: 08/25/17 06:15 08/25/17 06:15 - Head Exam Head Exam: ATRAUMATIC - Eye Exam Eye Exam: Normal appearance - ENT Exam ENT Exam: Mucous Membranes Dry - Respiratory Exam Respiratory Exam: NORMAL BREATHING PATTERN - Cardiovascular Exam Cardiovascular Exam: +S1, +S2 - GI/Abdominal Exam GI & Abdominal Exam: Normal Bowel Sounds Assessment and Plan (1) Pancytopenia Assessment & Plan: multifactorial bone metastasis, radiation treatment severe neutropenia, will give Granix s/p PRBC transfusion Status: Acute (2) Metastatic malignant neoplasm to prostate Assessment & Plan: bone and lymph node metastasis on androgen deprivation therapy and palliative radiotherapy outpatient treatment Status: Acute
[2017-08-26] MEDS ORDERED: Albuterol-Ipratrop 3 mg / 0.5 (3 ml) UD INH STA (01:33)
--- NOTE | 2017-08-26 01:44 | CP.PCM.PN ---
Subjective - Date & Time of Evaluation Date of Evaluation: 08/24/17 Time of Evaluation: 19:00 - Subjective Subjective: Feels tired. Objective - Vital Signs/Intake and Output Vital Signs (last 24 hours): Temp Pulse Resp BP Pulse Ox 102.8 F H 107 H 20 107/69 95 08/26/17 00:05 08/26/17 00:05 08/26/17 00:05 08/26/17 00:05 08/26/17 00:05 Intake and Output: 08/25/17 08/26/17 18:59 06:59 Intake Total 325 840 Balance 325 840 - Medications Medications: Current Medications Acetaminophen (Tylenol 325mg Tab) 650 mg PO Q8 PRN PRN Reason: Fever >100.4 F Last Admin: 08/25/17 22:41 Dose: 650 mg Dicyclomine HCl (Bentyl) 10 mg PO QID [facility] Last Admin: 08/25/17 21:11 Dose: 10 mg Docusate Sodium (Colace) 100 mg PO TID [facility] Last Admin: 08/25/17 17:26 Dose: 100 mg Guaifenesin (Mucinex La) 600 mg PO BID [facility] Last Admin: 08/25/17 17:26 Dose: 600 mg Hydromorphone HCl (Dilaudid) 2 mg IVP Q3H PRN PRN Reason: Pain, severe (8-10) Last Admin: 08/25/17 22:36 Dose: 2 mg Cefepime HCl (Maxipime Iv 1 Gm Premix) 1 gm in 50 mls @ 100 mls/hr IVPB Q12H [facility]NAN PRN Reason: Protocol Last Admin: 08/25/17 17:27 Dose: 100 mls/hr Vancomycin/Sodium Chloride (Vancomycin 1 Gm/Ns 200 Ml) 1 gm in 200 mls @ 167 mls/hr IVPB Q24H RENAN PRN Reason: Protocol Stop: 08/30/17 18:01 Last Admin: 08/25/17 18:15 Dose: 167 mls/hr Mupirocin (Bactroban 2% Nasal) 0.25 gm JORDON BID [facility] Stop: 08/30/17 18:01 Last Admin: 08/25/17 17:26 Dose: 0.25 gm Pantoprazole Sodium (Protonix Ec Tab) 40 mg PO DAILY [facility] Last Admin: 08/25/17 09:46 Dose: 40 mg Polyethylene Glycol (Miralax) 17 gm PO DAILY [facility] Last Admin: 08/25/17 09:46 Dose: 17 gm Saccharomyces Boulardii (Florastor) 250 mg PO BID [facility] Last Admin: 08/25/17 17:26 Dose: 250 mg Senna/Docusate Sodium (Senokot S 50 Mg-8.6 Mg) 2 tab PO HS [facility] Last Admin: 08/25/17 21:11 Dose: 2 tab - Labs Labs: 08/25/17 06:15 08/25/17 06:15 - Head Exam Head Exam: ATRAUMATIC - Eye Exam Eye Exam: Normal appearance - ENT Exam ENT Exam: Mucous Membranes Dry - Respiratory Exam Respiratory Exam: NORMAL BREATHING PATTERN - Cardiovascular Exam Cardiovascular Exam: +S1, +S2 - GI/Abdominal Exam GI & Abdominal Exam: Normal Bowel Sounds Assessment and Plan (1) Pancytopenia Assessment & Plan: multifactorial bone metastasis, radiation treatment severe neutropenia, will give Granix s/p PRBC transfusion Status: Acute (2) Metastatic malignant neoplasm to prostate Assessment & Plan: bone and lymph node metastasis on androgen deprivation therapy and palliative radiotherapy outpatient treatment Status: Acute
--- NOTE | 2017-08-26 01:46 | CP.PCM.PN ---
Subjective - Date & Time of Evaluation Date of Evaluation: 08/25/17 Time of Evaluation: 13:00 - Subjective Subjective: Feeling better. Objective - Vital Signs/Intake and Output Vital Signs (last 24 hours): Temp Pulse Resp BP Pulse Ox 102.8 F H 107 H 20 107/69 95 08/26/17 00:05 08/26/17 00:05 08/26/17 00:05 08/26/17 00:05 08/26/17 00:05 Intake and Output: 08/25/17 08/26/17 18:59 06:59 Intake Total 325 840 Balance 325 840 - Medications Medications: Current Medications Acetaminophen (Tylenol 325mg Tab) 650 mg PO Q8 PRN PRN Reason: Fever >100.4 F Last Admin: 08/25/17 22:41 Dose: 650 mg Dicyclomine HCl (Bentyl) 10 mg PO QID [facility] Last Admin: 08/25/17 21:11 Dose: 10 mg Docusate Sodium (Colace) 100 mg PO TID [facility] Last Admin: 08/25/17 17:26 Dose: 100 mg Guaifenesin (Mucinex La) 600 mg PO BID [facility] Last Admin: 08/25/17 17:26 Dose: 600 mg Hydromorphone HCl (Dilaudid) 2 mg IVP Q3H PRN PRN Reason: Pain, severe (8-10) Last Admin: 08/25/17 22:36 Dose: 2 mg Cefepime HCl (Maxipime Iv 1 Gm Premix) 1 gm in 50 mls @ 100 mls/hr IVPB Q12H [facility] PRN Reason: Protocol Last Admin: 08/25/17 17:27 Dose: 100 mls/hr Vancomycin/Sodium Chloride (Vancomycin 1 Gm/Ns 200 Ml) 1 gm in 200 mls @ 167 mls/hr IVPB Q24H [facility] PRN Reason: Protocol Stop: 08/30/17 18:01 Last Admin: 08/25/17 18:15 Dose: 167 mls/hr Mupirocin (Bactroban 2% Nasal) 0.25 gm JORDON BID [facility] Stop: 08/30/17 18:01 Last Admin: 08/25/17 17:26 Dose: 0.25 gm Pantoprazole Sodium (Protonix Ec Tab) 40 mg PO DAILY [facility] Last Admin: 08/25/17 09:46 Dose: 40 mg Polyethylene Glycol (Miralax) 17 gm PO DAILY [facility] Last Admin: 08/25/17 09:46 Dose: 17 gm Saccharomyces Boulardii (Florastor) 250 mg PO BID [facility] Last Admin: 08/25/17 17:26 Dose: 250 mg Senna/Docusate Sodium (Senokot S 50 Mg-8.6 Mg) 2 tab PO HS [facility] Last Admin: 08/25/17 21:11 Dose: 2 tab - Labs Labs: 08/25/17 06:15 08/25/17 06:15 - Head Exam Head Exam: ATRAUMATIC - Eye Exam Eye Exam: Normal appearance - ENT Exam ENT Exam: Mucous Membranes Dry - Respiratory Exam Respiratory Exam: NORMAL BREATHING PATTERN - Cardiovascular Exam Cardiovascular Exam: +S1, +S2 - GI/Abdominal Exam GI & Abdominal Exam: Normal Bowel Sounds - Extremities Exam Extremities Exam: Normal Inspection - Neurological Exam Neurological Exam: Oriented x3 Assessment and Plan (1) Pancytopenia Assessment & Plan: multifactorial bone metastasis, radiation treatment severe neutropenia, will give Granix s/p PRBC transfusion Status: Acute (2) Metastatic malignant neoplasm to prostate Assessment & Plan: bone and lymph node metastasis on androgen deprivation therapy and palliative radiotherapy outpatient treatment Status: Acute
[2017-08-26] MEDS: HYDROmorphone 1 mg/ml ISec IVP PRN ×6 (03:22→22:56)
[2017-08-26] MEDS: Meropenem IV 1 gm in NS 50 ML IVPB SCH ×3 (06:12→22:12)
[2017-08-26 08:00] LABS: BASO % 0.5 % (0.0-2.0); EOS % 1.2 % (0.0-4.0); HEMOGLOBIN 8.8 g/dL (12.0-18.0); LYMPH # 0.2 K/uL (1.0-4.3); MEAN CORPUSCULAR HEMOGLOBIN 29.8 pg (27.0-31.0); MEAN CORPUSCULAR HGB CONC 34.3 g/dL (33.0-37.0); MONO % 1.5 % (0.0-10.0); NEUT # 0.3 K/uL (1.8-7.0); NEUT % 57.8 % (50.0-75.0); NRBC % 0.3 % (0.0-2.0); RBC 2.96 Mil/uL (4.40-5.90)
[2017-08-26 08:04] LABS: WHITE BLOOD COUNT 0.5 K/uL (4.8-10.8)
[2017-08-26 08:05] LABS: ALB/GLOB RATIO 1.1 (1.0-2.1); ALBUMIN 3.3 g/dL (3.5-5.0); ALT/SGPT 48 U/L (21-72); AST/SGOT 52 U/L (17-59); BLOOD UREA NITROGEN 8 mg/dL (9-20); GFR AFRICAN-AMERICAN > 60; GFR NON-AFRICAN AMERICAN > 60
[2017-08-26] MEDS: POLYETHYLENE GLYCOL 3350 17 GM/Dose PACKET PO SCH (09:43)
[2017-08-26] MEDS: Saccharomyces Boulardi 250 mg Cap PO SCH ×2 (09:43→18:01)
[2017-08-26] MEDS: guaiFENesin 600 mg ER Tab PO SCH ×2 (09:43→18:01)
[2017-08-26] MEDS: Mupirocin 2% Ointment (NASAL) NAS SCH ×2 (09:43→18:01)
[2017-08-26] MEDS: Pantoprazole 40 mg EC Tab PO SCH (09:43)
--- NOTE | 2017-08-26 14:17 | CP.PCM.PN ---
Subjective - Date & Time of Evaluation Date of Evaluation: 08/26/17 Time of Evaluation: 08:00 - Subjective Subjective: c/o cougth Objective - Vital Signs/Intake and Output Vital Signs (last 24 hours): Temp Pulse Resp BP Pulse Ox 102.7 F H 118 H 20 107/69 97 08/26/17 07:10 08/26/17 07:10 08/26/17 07:10 08/26/17 07:10 08/26/17 07:10 Intake and Output: 08/26/17 08/26/17 06:59 18:59 Intake Total 840 Balance 840 - Medications Medications: Current Medications Acetaminophen (Tylenol 325mg Tab) 650 mg PO Q8 PRN PRN Reason: Fever >100.4 F Last Admin: 08/26/17 06:19 Dose: 650 mg Dicyclomine HCl (Bentyl) 10 mg PO QID [facility] Last Admin: 08/26/17 09:43 Dose: 10 mg Docusate Sodium (Colace) 100 mg PO TID [facility] Last Admin: 08/26/17 09:43 Dose: 100 mg Guaifenesin (Mucinex La) 600 mg PO BID [facility] Last Admin: 08/26/17 09:43 Dose: 600 mg Hydromorphone HCl (Dilaudid) 2 mg IVP Q3H PRN PRN Reason: Pain, severe (8-10) Last Admin: 08/26/17 11:49 Dose: 2 mg Vancomycin/Sodium Chloride (Vancomycin 1 Gm/Ns 200 Ml) 1 gm in 200 mls @ 167 mls/hr IVPB Q24H [facility] PRN Reason: Protocol Stop: 08/30/17 18:01 Last Admin: 08/25/17 18:15 Dose: 167 mls/hr Meropenem (Merrem Iv 1 Gm Premix) 50 mls @ 100 mls/hr IVPB Q8 [facility] PRN Reason: Protocol Last Admin: 08/26/17 06:12 Dose: 100 mls/hr Mupirocin (Bactroban 2% Nasal) 0.25 gm JORDON BID [facility] Stop: 08/30/17 18:01 Last Admin: 08/26/17 09:43 Dose: 0.25 gm Pantoprazole Sodium (Protonix Ec Tab) 40 mg PO DAILY [facility] Last Admin: 08/26/17 09:43 Dose: 40 mg Polyethylene Glycol (Miralax) 17 gm PO DAILY [facility] Last Admin: 08/26/17 09:43 Dose: 17 gm Saccharomyces Boulardii (Florastor) 250 mg PO BID [facility] Last Admin: 08/26/17 09:43 Dose: 250 mg Senna/Docusate Sodium (Senokot S 50 Mg-8.6 Mg) 2 tab PO HS [facility] Last Admin: 08/25/17 21:11 Dose: 2 tab - Labs Labs: 08/26/17 07:38 08/26/17 07:38 - Constitutional Appears: Well - Head Exam Head Exam: ATRAUMATIC, NORMAL INSPECTION, NORMOCEPHALIC - Eye Exam Eye Exam: EOMI, Normal appearance, PERRL Pupil Exam: NORMAL ACCOMODATION, PERRL - ENT Exam ENT Exam: Mucous Membranes Moist, Normal Exam - Neck Exam Neck Exam: Full ROM, Normal Inspection. absent: Lymphadenopathy - Respiratory Exam Respiratory Exam: Decreased Breath Sounds - Cardiovascular Exam Cardiovascular Exam: REGULAR RHYTHM, +S1, +S2 - GI/Abdominal Exam GI & Abdominal Exam: Soft, Diminished Bowel Sounds - Rectal Exam Rectal Exam: Deferred Assessment and Plan (1) Anemia Status: Acute (2) Chronic pain Status: Acute (3) Esophagitis Status: Acute (4) Gastritis Status: Acute (5) Pancytopenia Status: Acute (6) Abdominal pain Status: Acute (7) Chest discomfort Status: Acute (8) Constipation Status: Acute (9) Intractable abdominal pain Status: Acute (10) Metastatic malignant neoplasm to prostate Status: Acute (11) Neutropenia Status: Acute (12) Prostate cancer Status: Acute (13) Prostate cancer, primary, with metastasis from prostate to other site Status: Acute - Assessment and Plan (Free Text) Plan: febrile on reverse isolation on merrem id on board on vanco vanco levels pt is gcsf as per dr. milner stephany.
[2017-08-26] MEDS: Vancomycin 1 gm/NS 200 ml 1 GM/200 ML BAG IVPB SCH (18:01)
[2017-08-26] MEDS ORDERED: Acetylcysteine 20% Inhal Soln (4ml) INH SCH ×2 (20:45→23:45)
[2017-08-26] MEDS: Docusate-Senna 50 mg-8.6 mg Tab PO SCH (22:12)
[2017-08-26] MEDS ORDERED: Albuterol-Ipratrop 3 mg / 0.5 (3 ml) UD ONE (23:43)
[2017-08-26] MEDS: Albuterol-Ipratrop 3 mg / 0.5 (3 ml) UD INH SCH (23:53)
[2017-08-26] MEDS ORDERED: Acetylcysteine 20% Inhal Soln (4ml) ONE (23:53)
--- NOTE | 2017-08-27 | CP.PCM.PN ---
Subjective - Date & Time of Evaluation Date of Evaluation: 08/27/17 Time of Evaluation: 00:00 - Subjective Subjective: CHIEF COMPLAINTS TODAY : 08/26/17 late entry temp this am 102.2 denies abdominal pain ' denies dysphagia C/O COUGH +VE MRSA NARES ROS. HEENT : N. Resp : +VE cough, wheezing ,pleuritic CP ,or hemoptysis Cardio : No anginal CP, PND, orthopnea, palpitation GI : ABDOMINAL PAIN improving, n/v ,diarrhea or GI bleeding . FAMILY DENTIST : No headache, vertigo, focal deficit. Musculoskel : No joint swelling , Derm : No rash Psych : Normal affect. Ext : No swelling ,calf pain PE. Pt. is alert awake in no distress. V.S As noted in the chart Head ,ear nose,throat and eyes : Normal. Neck : Supple with normal carotids. Lungs: RHONCHI LT SIDE. Heart : S1 & S2 REGULAR . No murmur. Abd : SOFT, NON TENDER , with normal bowel sounds. Neuro : Moves all ext. with no localized deficit. Ext : No edema with intact pulses.Non tender calves Derm : No rashes or decubitus ulcer. LABS/RADIOLOGY: REVIEWED WBC 0.8, H/H 7.7/21.8 BLOOD CULTURES -VE X TO DATE CXR 08/25/17 NEW LT PERIHILAR INFILTRATE ASSESSMENT NEUTRPENIC FEVERS NEW PNEUMONIA METASTATIC CA PROSTRATE. ESOPHAGITIS VI S/P EGD ABDOMINAL PAIN-IMPROVING /PLAN : START IV MERREM 1GM IVPB Q8HRLY FOR BROADER G-VE COVERAGE.. 08/26/17 DC iv CEFEPIME 1 G EVERY 12 HOURLY 08/22/17. CONTINUE IV DIFLUCAN 200 MG LOADING DOSE F/U 100 MG ONCE A DAY DAILY 08/22/17. CONTINUE IV VANCOMYCIN 1GM IVPB Q 24HRLY DAILY.08/23/17 BACTOBEN CREAM LOCALLY TO NARIS BID X 7 DAYS. F/U SPUTUM CULTURES- ORDERED fOLLOW-UP BLOOD CULTURES AND URINE CULTURES TO ADJUST ANTIBIOTICS. PT ON GRANIX CONTACT PRECAUTIONS. Objective - Vital Signs/Intake and Output Vital Signs (last 24 hours): Temp Pulse Resp BP Pulse Ox 102.4 F H 137 H 20 118/73 96 08/26/17 22:55 08/26/17 22:18 08/26/17 22:18 08/26/17 22:18 08/26/17 15:00 Intake and Output: 08/26/17 08/27/17 18:59 06:59 Intake Total 250 50 Balance 250 50 - Medications Medications: Current Medications Acetaminophen (Tylenol 325mg Tab) 650 mg PO Q8 PRN PRN Reason: Fever >100.4 F Last Admin: 08/26/17 22:55 Dose: 650 mg Acetylcysteine (Acetylcysteine 20%) 4 ml INH Q6H [facility] Albuterol/Ipratropium (Duoneb 3 Mg/0.5 Mg (3 Ml) Ud) 3 ml INH RQ6 [facility] Last Admin: 08/26/17 23:53 Dose: 3 ml Dicyclomine HCl (Bentyl) 10 mg PO QID [facility] Last Admin: 08/26/17 22:12 Dose: 10 mg Docusate Sodium (Colace) 100 mg PO TID [facility] Last Admin: 08/26/17 18:01 Dose: 100 mg Guaifenesin (Mucinex La) 600 mg PO BID [facility] Last Admin: 08/26/17 18:01 Dose: 600 mg Hydromorphone HCl (Dilaudid) 2 mg IVP Q3H PRN PRN Reason: Pain, severe (8-10) Last Admin: 08/26/17 22:56 Dose: 2 mg Vancomycin/Sodium Chloride (Vancomycin 1 Gm/Ns 200 Ml) 1 gm in 200 mls @ 167 mls/hr IVPB Q24H [facility] PRN Reason: Protocol Stop: 08/30/17 18:01 Last Admin: 08/26/17 18:01 Dose: 167 mls/hr Meropenem (Merrem Iv 1 Gm Premix) 50 mls @ 100 mls/hr IVPB Q8 [facility] PRN Reason: Protocol Last Admin: 08/26/17 22:12 Dose: 100 mls/hr Fluconazole (Diflucan Iv 100 Mg/50 Ml Ns) 50 mls @ 100 mls/hr IVPB DAILY [facility] PRN Reason: Protocol Mupirocin (Bactroban 2% Nasal) 0.25 gm JORDON BID [facility] Stop: 08/30/17 18:01 Last Admin: 08/26/17 18:01 Dose: 0.25 gm Pantoprazole Sodium (Protonix Ec Tab) 40 mg PO DAILY [facility] Last Admin: 08/26/17 09:43 Dose: 40 mg Polyethylene Glycol (Miralax) 17 gm PO DAILY [facility] Last Admin: 08/26/17 09:43 Dose: 17 gm Saccharomyces Boulardii (Florastor) 250 mg PO BID [facility] Last Admin: 08/26/17 18:01 Dose: 250 mg Senna/Docusate Sodium (Senokot S 50 Mg-8.6 Mg) 2 tab PO HS [facility] Last Admin: 08/26/17 22:12 Dose: 2 tab - Labs Labs: 08/26/17 07:38 08/26/17 07:38 Assessment and Plan (1) Pancytopenia Status: Acute (2) Abdominal pain Status: Acute (3) Esophagitis Status: Acute (4) Metastatic malignant neoplasm to prostate Status: Acute
[2017-08-27] MEDS: Albuterol-Ipratrop 3 mg / 0.5 (3 ml) UD INH SCH ×4 (01:43→19:18)
[2017-08-27] MEDS ORDERED: Acetylcysteine 20% Inhal Soln (4ml) INH SCH (02:00)
[2017-08-27] MEDS: HYDROmorphone 1 mg/ml ISec IVP PRN ×2 (02:03→05:11)
[2017-08-27] MEDS: Meropenem IV 1 gm in NS 50 ML IVPB SCH ×3 (05:11→21:51)
--- NOTE | 2017-08-27 07:11 | CP.PCM.PN ---
Subjective - Date & Time of Evaluation Date of Evaluation: 08/27/17 Time of Evaluation: 07:11 - Subjective Subjective: PGY2 Medicine Note for Dr. Osmin Pavon Patient seen and examined this morning at bedside. Patient spiked multiple fevers overnight. Tmax 102.9. HR is elevated in the 140, with electrical dissociation with pulse rate. Patient is experiencing extremely productive cough with rust colored sputum. Patient SOB and desaturating. ICU consult placed. Objective - Vital Signs/Intake and Output Vital Signs (last 24 hours): Temp Pulse Resp BP Pulse Ox 102.9 F H 136 H 20 107/71 91 L 08/27/17 00:49 08/27/17 00:49 08/27/17 00:49 08/27/17 00:49 08/27/17 00:49 Intake and Output: 08/27/17 08/27/17 06:59 18:59 Intake Total 50 Balance 50 - Medications Medications: Current Medications Acetaminophen (Tylenol 325mg Tab) 650 mg PO Q8 PRN PRN Reason: Fever >100.4 F Last Admin: 08/26/17 22:55 Dose: 650 mg Acetylcysteine (Acetylcysteine 20%) 4 ml INH RQ6 [facility] Albuterol/Ipratropium (Duoneb 3 Mg/0.5 Mg (3 Ml) Ud) 3 ml INH RQ6 [facility] Last Admin: 08/27/17 01:43 Dose: Not Given Dicyclomine HCl (Bentyl) 10 mg PO QID [facility] Last Admin: 08/26/17 22:12 Dose: 10 mg Docusate Sodium (Colace) 100 mg PO TID [facility] Last Admin: 08/26/17 18:01 Dose: 100 mg Guaifenesin (Mucinex La) 600 mg PO BID [facility] Last Admin: 08/26/17 18:01 Dose: 600 mg Hydromorphone HCl (Dilaudid) 2 mg IVP Q3H PRN PRN Reason: Pain, severe (8-10) Last Admin: 08/27/17 05:11 Dose: 2 mg Vancomycin/Sodium Chloride (Vancomycin 1 Gm/Ns 200 Ml) 1 gm in 200 mls @ 167 mls/hr IVPB Q24H [facility] PRN Reason: Protocol Stop: 08/30/17 18:01 Last Admin: 08/26/17 18:01 Dose: 167 mls/hr Meropenem (Merrem Iv 1 Gm Premix) 50 mls @ 100 mls/hr IVPB Q8 [facility] PRN Reason: Protocol Last Admin: 08/27/17 05:11 Dose: 100 mls/hr Fluconazole (Diflucan Iv 100 Mg/50 Ml Ns) 50 mls @ 100 mls/hr IVPB DAILY [facility] PRN Reason: Protocol Mupirocin (Bactroban 2% Nasal) 0.25 gm JORDON BID [facility] Stop: 08/30/17 18:01 Last Admin: 08/26/17 18:01 Dose: 0.25 gm Pantoprazole Sodium (Protonix Ec Tab) 40 mg PO DAILY [facility] Last Admin: 08/26/17 09:43 Dose: 40 mg Polyethylene Glycol (Miralax) 17 gm PO DAILY [facility] Last Admin: 08/26/17 09:43 Dose: 17 gm Saccharomyces Boulardii (Florastor) 250 mg PO BID [facility] Last Admin: 08/26/17 18:01 Dose: 250 mg Senna/Docusate Sodium (Senokot S 50 Mg-8.6 Mg) 2 tab PO HS [facility] Last Admin: 08/26/17 22:12 Dose: 2 tab - Labs Labs: 08/26/17 07:38 08/26/17 07:38 - Constitutional Appears: In Acute Distress, Chronically Ill - Head Exam Head Exam: ATRAUMATIC - Eye Exam Eye Exam: EOMI, PERRL - ENT Exam ENT Exam: Mucous Membranes Dry - Neck Exam Neck Exam: absent: Lymphadenopathy - Respiratory Exam Respiratory Exam: Rales, Rhonchi (throughout b/l; L>R), Respiratory Distress. absent: NORMAL BREATHING PATTERN - Cardiovascular Exam Cardiovascular Exam: Tachycardia - GI/Abdominal Exam GI & Abdominal Exam: Soft. absent: Distended, Firm, Guarding, Rigid, Tenderness - Extremities Exam Extremities Exam: absent: Calf Tenderness, Pedal Edema - Neurological Exam Neurological Exam: Alert, Awake, Oriented x3 - Psychiatric Exam Psychiatric exam: Normal Affect, Normal Mood - Skin Skin Exam: Dry, Warm Assessment and Plan - Assessment and Plan (Free Text) Plan: Pulmonary Edema/Pneumonia - Patient transferred to ICU * Intubated 08/27 * R IJ central line place - chest xray: New left perihilar infiltrate. - repeat CXR: worsening upper left lobe infiltrate - f/u sputum culture - Guaifenesin 600mg po bid Pancytopenia w/fever - WBC 0.2 s/p 2 doses of Granix - Platelet 38 - Follow heme/onc recommendations - ID consulted, Dr. Bo * abx per ID (Cefepime and Vanco IV, Mupirocin JORDON BID, and one dose of Fluconazole) - Hemoglobin decreased 8.6 - Tylenol and cooling blankets prn Stage 4 prostate cancer - Metastasis to bone and lymph node s/p palliative radiotherapy - Dilaudid 2mg IV Q3 prn - Follow Heme/onc recommendations Gastritis - Currently stable - Recent endoscopy by bob Iraheta revealed gastritis and coral infection - GI consulted, continue to follow recommendations Constipation - Colace 100mg TID - Senokot 2 tabs po HS - Miralax 17gm daily Prophylactic measures - Protonix - SCD - Florastor 250mg daily - VTE contraindicated due to pancytopenia All management per Dr. Librado Munoz Irma PGY2
[2017-08-27 07:28] LABS: HEMOGLOBIN 8.6 g/dL (12.0-18.0); MEAN CELL VOLUME 87.6 fL (80.0-94.0); MEAN CORPUSCULAR HEMOGLOBIN 30.1 pg (27.0-31.0); MEAN CORPUSCULAR HGB CONC 34.3 g/dL (33.0-37.0); MEAN PLATELET VOLUME 8.2 fL (7.2-11.7); RBC 2.87 Mil/uL (4.40-5.90); RED CELL DISTRIBUTION WIDTH 15.9 % (11.5-14.5)
[2017-08-27 07:34] LABS: WHITE BLOOD COUNT 0.2 K/uL (4.8-10.8)
[2017-08-27 08:12] LABS: ALBUMIN 3.2 g/dL (3.5-5.0); ALT/SGPT 103 U/L (21-72); AST/SGOT 129 U/L (17-59); BILIRUBIN,DIRECT 2.4 mg/dL (0.0-0.4); BLOOD UREA NITROGEN 20 mg/dL (9-20); CALCIUM 7.2 mg/dl (8.6-10.4); GFR AFRICAN-AMERICAN > 60; GFR NON-AFRICAN AMERICAN > 60
[2017-08-27] MEDS ORDERED: Sodium Chloride 0.9% 1,000 ML IV SCH (10:00)
--- NOTE | 2017-08-27 10:04 | CP.PCM.CON ---
<Ermelinda Hancock - Last Filed: 08/27/17 10:42> History of Present Illness - History of Present Illness History of Present Illness: ICU consult note for Dr. Pavon 61 year old male with past medical history of prostate cancer with mets ot bone currently on palliative radiation to bones and androgen deprivation was admitted for abd pain. ICU consult requested for tachycardia and hypoxia. Currently patient was noted to have a saturation on 95% on 5 L NC. Patient was switched to non-rebreather mask and saturation increased to 96%. Patient was noted ot be tachycardic at 141. Of, note, patient was be pancytopenic with WBC count of 0.2, Hgb of 8.6 and platelets of 38. Currently, pt complaining of productive coughing with yellow sputum. Patient noted to be febrile at 102 degrees and tachy at 141. PMHx: stated above Past surgical history: None Family history: Denies hematologic and oncologic problems Social history: Social alcohol. Allergies: NKA Review of Systems - Review of Systems Systems not reviewed;Unavailable: Respiratory Distress - Constitutional Constitutional: Chills, Fever Past Patient History - Past Medical History & Family History Past Medical History?: Yes - Past Social History Smoking Status: Never Smoked Chewing Tobacco Use: No Cigar Use: No Alcohol: None - CARDIAC Hx Cardiac Disorders: No - PULMONARY Hx Respiratory Disorders: No - NEUROLOGICAL Hx Neurological Disorder: No - HEENT Hx HEENT Problems: No - RENAL Hx Chronic Kidney Disease: No - ENDOCRINE/METABOLIC Hx Endocrine Disorders: No - HEMATOLOGICAL/ONCOLOGICAL Hx Blood Transfusions: Yes Hx Blood Transfusion Reaction: No - INTEGUMENTARY Hx Dermatological Problems: No - MUSCULOSKELETAL/RHEUMATOLOGICAL Hx Musculoskeletal Disorders: No Hx Falls: No Hx Unsteady Gait: No - GASTROINTESTINAL Hx Gastrointestinal Disorders: No - GENITOURINARY/GYNECOLOGICAL Hx Genitourinary Disorders: Yes Hx Prostate Cancer: Yes (radiation) - PSYCHIATRIC Hx Substance Use: No - SURGICAL HISTORY Hx Surgeries: No - ANESTHESIA Hx Anesthesia: No Hx Anesthesia Reactions: No Hx Malignant Hyperthermia: No Meds Allergies/Adverse Reactions: Allergies Allergy/AdvReac Type Severity Reaction Status Date / Time No Known Allergies Allergy Verified 08/09/17 11:24 - Medications Medications: Current Medications Acetaminophen (Tylenol 325mg Tab) 650 mg PO Q8 PRN PRN Reason: Fever >100.4 F Last Admin: 07/05/18 07:16 Dose: 650 mg Acetylcysteine (Acetylcysteine 20%) 4 ml INH RQ6 [facility] Albuterol/Ipratropium (Duoneb 3 Mg/0.5 Mg (3 Ml) Ud) 3 ml INH RQ6 [facility] Last Admin: 08/27/17 07:20 Dose: 3 ml Dicyclomine HCl (Bentyl) 10 mg PO QID [facility] Last Admin: 08/26/17 22:12 Dose: 10 mg Docusate Sodium (Colace) 100 mg PO TID [facility] Last Admin: 08/26/17 18:01 Dose: 100 mg Furosemide (Lasix) 40 mg IVP DAILY [facility] Guaifenesin (Mucinex La) 600 mg PO BID [facility] Last Admin: 08/26/17 18:01 Dose: 600 mg Hydromorphone HCl (Dilaudid) 2 mg IVP Q3H PRN PRN Reason: Pain, severe (8-10) Last Admin: 08/27/17 05:11 Dose: 2 mg Vancomycin/Sodium Chloride (Vancomycin 1 Gm/Ns 200 Ml) 1 gm in 200 mls @ 167 mls/hr IVPB Q24H [facility] PRN Reason: Protocol Stop: 08/30/17 18:01 Last Admin: 08/26/17 18:01 Dose: 167 mls/hr Meropenem (Merrem Iv 1 Gm Premix) 50 mls @ 100 mls/hr IVPB Q8 [facility] PRN Reason: Protocol Last Admin: 08/27/17 05:11 Dose: 100 mls/hr Fluconazole (Diflucan Iv 100 Mg/50 Ml Ns) 50 mls @ 100 mls/hr IVPB DAILY [facility] PRN Reason: Protocol Sodium Chloride (Sodium Chloride 0.9%) 1,000 mls @ 999 mls/hr IV .Q1H1M [facility] Mupirocin (Bactroban 2% Nasal) 0.25 gm JORDON BID [facility] Stop: 08/30/17 18:01 Last Admin: 08/26/17 18:01 Dose: 0.25 gm Pantoprazole Sodium (Protonix Ec Tab) 40 mg PO DAILY [facility] Last Admin: 08/26/17 09:43 Dose: 40 mg Polyethylene Glycol (Miralax) 17 gm PO DAILY [facility] Last Admin: 08/26/17 09:43 Dose: 17 gm Saccharomyces Boulardii (Florastor) 250 mg PO BID [facility] Last Admin: 08/26/17 18:01 Dose: 250 mg Senna/Docusate Sodium (Senokot S 50 Mg-8.6 Mg) 2 tab PO HS [facility] Last Admin: 08/26/17 22:12 Dose: 2 tab Physical Exam - Constitutional Appears: In Acute Distress - Head Exam Head Exam: ATRAUMATIC, NORMOCEPHALIC - ENT Exam ENT Exam: Mucous Membranes Moist - Respiratory Exam Respiratory Exam: Rales, Rhonchi, Respiratory Distress - Cardiovascular Exam Cardiovascular Exam: Tachycardia, +S1, +S2 - GI/Abdominal Exam GI & Abdominal Exam: Normal Bowel Sounds, Soft. absent: Organomegaly, Tenderness - Extremities Exam Extremities exam: Negative for: pedal edema, tenderness - Neurological Exam Neurological exam: Alert, Oriented x3 - Psychiatric Exam Psychiatric exam: Normal Affect, Normal Mood - Skin Skin Exam: Dry, Intact, Normal Color, Warm Results - Vital Signs Recent Vital Signs: Last Vital Signs Temp 102.9 F H 08/27/17 09:47 Pulse 141 H 08/27/17 09:47 Resp 20 08/27/17 09:47 BP 111/71 08/27/17 09:47 Pulse Ox 90 L 08/27/17 09:47 - Labs Result Diagrams: 08/27/17 07:00 08/27/17 07:00 Labs: Laboratory Results - last 24 hr 08/27/17 08/27/17 07:00 07:00 WBC 0.2 L* D RBC 2.87 L Hgb 8.6 L Hct 25.2 L MCV 87.6 MCH 30.1 MCHC 34.3 RDW 15.9 H Plt Count 38 L MPV 8.2 Sodium 126 L Potassium 5.0 Chloride 94 L Carbon Dioxide 22 Anion Gap 16 BUN 20 Creatinine 1.1 Est GFR ( Amer) > 60 Est GFR (Non-Af Amer) > 60 Random Glucose 128 H Calcium 7.2 L Total Bilirubin 2.8 H Direct Bilirubin 2.4 H AST 129 H D ALT 103 H D Alkaline Phosphatase 311 H Total Protein 6.4 Albumin 3.2 L Globulin 3.2 Albumin/Globulin Ratio 1.0 Assessment & Plan - Assessment and Plan (Free Text) Assessment: 61 year old male with past medical history of prostate cancer with mets to bone is being transferred to ICU for respiratory distress 2/2 pulmonary edema Pulmonary edema - Pt will be transferred to ICU - started on phenylephrine 40 mcg/min. will require central line for further resuscitation. consent obtained - BiPAP - Will check CXR, EKG, trop and ABG Pancytopenia - on neutropenic percuations 2/2 radiation vs. PNA - currently febrile - pt received tylenol. Will give stat dose of ibuprofen. Cooling blankets prn prostate ca - management per heme/onc prophylaxis - protonix - scds. Case discussed with attending, Dr. Luciano Pavon - Date & Time Date: 08/27/17 Time: 10:46 <Ilia Pavon - Last Filed: 08/28/17 18:41> Meds - Medications Medications: Current Medications Acetaminophen (Tylenol 325mg Tab) 650 mg PO Q8 PRN PRN Reason: Fever >100.4 F Last Admin: 08/27/17 07:16 Dose: 650 mg Acetylcysteine (Acetylcysteine 20%) 4 ml PO Q12 [facility] Stop: 08/29/17 22:01 Last Admin: 08/28/17 10:24 Dose: 4 ml Albumin Human (Albumin Human 25% (12.5 Gm/50 Ml)) 12.5 gm IV Q6H [facility] Stop: 08/29/17 03:31 Last Admin: 08/28/17 15:17 Dose: 12.5 gm Albumin Human (Albumin Human 25% (12.5 Gm/50 Ml)) 12.5 gm IV Q6H [facility] Stop: 08/29/17 04:01 Last Admin: 08/28/17 15:58 Dose: 12.5 gm Albuterol/Ipratropium (Duoneb 3 Mg/0.5 Mg (3 Ml) Ud) 3 ml INH RQ6 [facility] Last Admin: 08/28/17 07:27 Dose: Not Given Atovaquone (Mepron) 1,500 mg PO DAILY [facility] PRN Reason: Protocol Last Admin: 08/28/17 09:53 Dose: 1,500 mg Docusate Sodium (Colace) 100 mg PO DAILY [facility] Last Admin: 08/28/17 11:00 Dose: Not Given Hydrocortisone Sodium Succinate (Solu-Cortef) 100 mg IV Q8 [facility] Last Admin: 08/28/17 14:36 Dose: 100 mg Vancomycin/Sodium Chloride (Vancomycin 1 Gm/Ns 200 Ml) 1 gm in 200 mls @ 167 mls/hr IVPB Q24H [facility] PRN Reason: Protocol Stop: 08/30/17 18:01 Last Admin: 08/27/17 18:26 Dose: 167 mls/hr Meropenem (Merrem Iv 1 Gm Premix) 50 mls @ 100 mls/hr IVPB Q8 [facility] PRN Reason: Protocol Last Admin: 08/28/17 14:38 Dose: 100 mls/hr Fluconazole (Diflucan Iv 100 Mg/50 Ml Ns) 50 mls @ 100 mls/hr IVPB DAILY [facility] PRN Reason: Protocol Last Admin: 08/28/17 09:55 Dose: 100 mls/hr Propofol (Diprivan) 1,000 mg in 100 mls @ 2.218 mls/hr IV .Q24H PRN; Protocol; 5 MCG/KG/MIN PRN Reason: TITRATE PER MD ORDER Last Titration: 08/28/17 11:10 Dose: 33 mcg/kg/min, 14.639 mls/hr Dexmedetomidine HCl 200 mcg/ (Sodium Chloride) 50 mls @ 3.69 mls/hr IV TITR PRN ; Protocol; 0.2 MCG/KG/HR PRN Reason: Sedation Last Titration: 08/27/17 21:00 Dose: 0 mcg/kg/hr, 0 mls/hr Doxycycline Hyclate 100 mg/ (Sodium Chloride) 100 mls @ 100 mls/hr IVPB Q12H [facility] PRN Reason: Protocol Last Admin: 08/28/17 05:25 Dose: 100 mls/hr Sodium Bicarbonate 75 meq/ (Sodium Chloride) 1,075 mls @ 75 mls/hr IV .[id number] [facility] Last Admin: 08/28/17 10:25 Dose: 75 mls/hr Phenylephrine HCl 30 mg/ (Dextrose) 253 mls @ 20.23 mls/hr IV .[id number] PRN; Protocol; 40 MCG/MIN PRN Reason: TITRATE PER MD ORDER Last Titration: 08/28/17 14:30 Dose: 80 mcg/min, 40.48 mls/hr Insulin Aspart (Novolog) 0 unit SC Q6 [facility] PRN Reason: Protocol Last Admin: 08/28/17 12:01 Dose: Not Given Mupirocin (Bactroban 2% Nasal) 0.25 gm JORDON BID [facility] Stop: 08/30/17 18:01 Last Admin: 08/28/17 09:53 Dose: 0.25 gm Pantoprazole Sodium (Protonix Inj) 40 mg IVP Q12H [facility] Last Admin: 08/28/17 14:38 Dose: 40 mg Senna/Docusate Sodium (Senokot S 50 Mg-8.6 Mg) 1 tab GT DAILY [facility] Last Admin: 08/28/17 09:52 Dose: 1 tab Results - Vital Signs Recent Vital Signs: Last Vital Signs Temp 99.2 F 08/28/17 09:58 Pulse 128 H 08/28/17 14:40 Resp 30 H 08/28/17 14:40 BP 105/64 08/28/17 14:40 Pulse Ox 97 08/28/17 14:40 - Labs Result Diagrams: 08/28/17 06:26 08/28/17 06:25 Labs: Laboratory Results - last 24 hr 08/27/17 08/27/17 08/27/17 16:02 17:32 21:20 WBC RBC Hgb Hct MCV MCH MCHC RDW Plt Count MPV Neut % (Auto) Lymph % (Auto) [place] % (Auto) Eos % (Auto) Baso % (Auto) Neut # (Auto) Lymph # (Auto) [place] # (Auto) Eos # (Auto) Baso # (Auto) Total Counted Neutrophils % (Manual) Band Neutrophils % Lymphocytes % (Manual) Reactive Lymphs % Monocytes % (Manual) Eosinophils % (Manual) Basophils % (Manual) Metamyelocytes % Myelocytes % Promyelocytes % Blast Cells % Plasma Cell % (Manual) Nucleated RBC % Hypersegmented Polys Smudge Cells Toxic Granulation Dohle Bodies Vonda Rods Platelet Estimate Plt Clumps, EDTA Large Platelets Giant Platelets RBC Morphology Polychromasia Hypochromasia (manual) Poikilocytosis (manual Basophilic Stippling Anisocytosis (manual) Microcytosis (manual) Macrocytosis (manual) Spherocytes Sickle Cells Target Cells Tear Drop Cells Ovalocytes Stomatocytes Helmet Cells Mac-Goodwin Bodies Wheeler Cells Acanthocytes (Spur) Rouleaux Schistocytes Puncture Site Lr pCO2 26 L pO2 67 L HCO3 17.4 L ABG pH 7.35 ABG Total CO2 15.2 L ABG O2 Saturation 96.6 ABG Base Excess -9.5 L Harpreet Test Unable ABG Potassium 3.9 A-a O2 Difference 614.0 Respiratory Index 9.2 Sodium 135.0 Chloride 108.0 H Glucose 102 Lactate 1.8 Vent Mode Prvc Mechanical Rate 25 FiO2 100.0 Tidal Volume 500 PEEP 8 Potassium Carbon Dioxide Anion Gap BUN Creatinine Est GFR ( Amer) Est GFR (Non-Af Amer) POC Glucose (mg/dL) 156 H Random Glucose Calcium Phosphorus Magnesium Total Bilirubin AST ALT Alkaline Phosphatase Troponin I Total Protein Albumin Globulin Albumin/Globulin Ratio Arterial Blood Potassium 3.9 Ur L.pneumophila Ag Positive H 08/28/17 08/28/17 08/28/17 00:02 05:21 06:10 WBC RBC Hgb Hct MCV MCH MCHC RDW Plt Count MPV Neut % (Auto) Lymph % (Auto) [place] % (Auto) Eos % (Auto) Baso % (Auto) Neut # (Auto) Lymph # (Auto) [place] # (Auto) Eos # (Auto) Baso # (Auto) Total Counted Neutrophils % (Manual) Band Neutrophils % Lymphocytes % (Manual) Reactive Lymphs % Monocytes % (Manual) Eosinophils % (Manual) Basophils % (Manual) Metamyelocytes % Myelocytes % Promyelocytes % Blast Cells % Plasma Cell % (Manual) Nucleated RBC % Hypersegmented Polys Smudge Cells Toxic Granulation Dohle Bodies Vonda Rods Platelet Estimate Plt Clumps, EDTA Large Platelets Giant Platelets RBC Morphology Polychromasia Hypochromasia (manual) Poikilocytosis (manual Basophilic Stippling Anisocytosis (manual) Microcytosis (manual) Macrocytosis (manual) Spherocytes Sickle Cells Target Cells Tear Drop Cells Ovalocytes Stomatocytes Helmet Cells Mac-Goodwin Bodies Wheeler Cells Acanthocytes (Spur) Rouleaux Schistocytes Puncture Site Rb pCO2 37 pO2 95 HCO3 17.7 L ABG pH 7.27 L ABG Total CO2 18.1 L ABG O2 Saturation 98.5 H ABG Base Excess -9.2 L Harpreet Test Na ABG Potassium 5.0 A-a O2 Difference 572.0 Respiratory Index 6.0 Sodium 129.0 L Chloride 101.0 Glucose 142 H Lactate 1.7 Vent Mode Prvc Mechanical Rate 25 FiO2 100.0 Tidal Volume 450 PEEP 12 Potassium Carbon Dioxide Anion Gap BUN Creatinine Est GFR ( Amer) Est GFR (Non-Af Amer) POC Glucose (mg/dL) 134 H 115 H Random Glucose Calcium Phosphorus Magnesium Total Bilirubin AST ALT Alkaline Phosphatase Troponin I Total Protein Albumin Globulin Albumin/Globulin Ratio Arterial Blood Potassium 5.0 Ur L.pneumophila Ag 08/28/17 08/28/17 08/28/17 06:25 06:26 11:26 WBC 0.3 L* RBC 2.94 L Hgb 8.9 L Hct 25.9 L MCV 88.1 MCH 30.3 MCHC 34.3 RDW 16.9 H Plt Count 40 L MPV 8.2 Neut % (Auto) 41.7 L Lymph % (Auto) 31.6 [place] % (Auto) 22.6 H Eos % (Auto) 2.9 Baso % (Auto) 1.2 Neut # (Auto) 0.1 L Lymph # (Auto) 0.1 L [place] # (Auto) 0.1 Eos # (Auto) 0.0 Baso # (Auto) 0.0 Total Counted Cancelled Neutrophils % (Manual) Cancelled Band Neutrophils % Cancelled Lymphocytes % (Manual) Cancelled Reactive Lymphs % Cancelled Monocytes % (Manual) Cancelled Eosinophils % (Manual) Cancelled Basophils % (Manual) Cancelled Metamyelocytes % Cancelled Myelocytes % Cancelled Promyelocytes % Cancelled Blast Cells % Cancelled Plasma Cell % (Manual) Cancelled Nucleated RBC % Cancelled Hypersegmented Polys Cancelled Smudge Cells Cancelled Toxic Granulation Cancelled Dohle Bodies Cancelled Vonda Rods Cancelled Platelet Estimate Cancelled Plt Clumps, EDTA Cancelled Large Platelets Cancelled Giant Platelets Cancelled RBC Morphology Cancelled Polychromasia Cancelled Hypochromasia (manual) Cancelled Poikilocytosis (manual Cancelled Basophilic Stippling Cancelled Anisocytosis (manual) Cancelled Microcytosis (manual) Cancelled Macrocytosis (manual) Cancelled Spherocytes Cancelled Sickle Cells Cancelled Target Cells Cancelled Tear Drop Cells Cancelled Ovalocytes Cancelled Stomatocytes Cancelled Helmet Cells Cancelled Mac-Goodwin Bodies Cancelled Courtney Cells Cancelled Acanthocytes (Spur) Cancelled Rouleaux Cancelled Schistocytes Cancelled Puncture Site pCO2 pO2 HCO3 ABG pH ABG Total CO2 ABG O2 Saturation ABG Base Excess Harpreet Test ABG Potassium A-a O2 Difference Respiratory Index Sodium 131 L Chloride 99 Glucose Lactate Vent Mode Mechanical Rate FiO2 Tidal Volume PEEP Potassium 5.2 Carbon Dioxide 17 L Anion Gap 20 BUN 44 H Creatinine 2.3 H Est GFR ( Amer) 35 Est GFR (Non-Af Amer) 29 POC Glucose (mg/dL) 146 H Random Glucose 139 H Calcium 6.0 L* Phosphorus 5.7 H Magnesium 2.2 Total Bilirubin 4.1 H AST 403 H D ALT 234 H D Alkaline Phosphatase 225 H D Troponin I 0.0610 Total Protein 6.1 L Albumin 2.9 L Globulin 3.2 Albumin/Globulin Ratio 0.9 L Arterial Blood Potassium Ur L.pneumophila Ag Assessment & Plan - Assessment and Plan (Free Text) Plan: 61 y/o male with pmx of prostate ca with mets to lung being treated with XRT and oral chemo. Patient was being treated with mucomyst inhalation and develoepd hypoxic respiratory failure with significant sputum production. ICU evaluated patent at bedside on 6th floor. Patient was being treated with IVF and IV antibiotics. Patient was initially placed on bi-pap -Acute hypoxic respiratory failure: suspect 2nd large VQ mismatch, bipap started. Patient did not tolerate bi-pap 2nd copious sputum production. Patient requested to place on a ventilator to help decrease the work of breathing. continue ventilation to keep spoe >92 and pH b/w 7.35-7.45, continue bronchodilaotrs and IV steroids -Septic shock: continue IVF at 30 ml/kg and start pressros to keep MAP >65, serial lactic q4hrs,neely culture, continue broad spectrum abx, ID input appreciated -Chronic systolic heart failure: check echo, check bnp -HUSSAIN: monitor urine output, goasl of U/O more than 0.5 ml/kg/hr, avoid nephrotoxic drugs -anemia: 2nd anemia of chronic disease, check fecal occult blood, iron profile, folate/b12 -neutropenia: 2nd oral chemo, continue neupogen -GI: place ng tube and start tube feeds -thrombocytopenia: monitor no active bleeding -check and replace electrolytes -skin: supplemental MVI/vitamin C + turn q2 hrs -dvt ppx: scds (thrombocytopenia) -PUD ppx protonix -Go cc time spent 55 minutes
[2017-08-27 10:17] LABS: ARTERIAL BLOOD GAS HCO3 20.3 mmol/L (21-28); ARTERIAL BLOOD GAS O2 SAT 99.1 % (95-98); ARTERIAL BLOOD GAS PCO2 26 mm/Hg (35-45); ARTERIAL BLOOD GAS PH 7.42 (7.35-7.45); ARTERIAL BLOOD GAS PO2 129 mm/Hg (80-100); ARTERIAL BLOOD GAS TCO2 17.7 mmol/L (22-28)
--- NOTE | 2017-08-27 10:21 | RAD ---
HISTORY: SOB COMPARISON: Chest radiograph dated 08/25/2017. FINDINGS: LUNGS: Worsening left upper/ mid lung opacity. Increased prominence the bilateral bronchovascular markings. PLEURA: No significant pleural effusion identified, no pneumothorax apparent. CARDIOVASCULAR: Normal. OSSEOUS STRUCTURES: Unchanged. VISUALIZED UPPER ABDOMEN: Normal. OTHER FINDINGS: None. IMPRESSION: Worsening left upper/mid lung opacity. Increasing prominence of the bilateral bronchovascular markings
[2017-08-27] MEDS ORDERED: Verapamil 2 ML ONE (10:51)
[2017-08-27] MEDS ORDERED: Phenylephrine 30 MG in Dextrose 5% In Water 250 ML IV PRN (11:00)
[2017-08-27] MEDS: Fluconazole IV 100mg/50 ml NS 50 ML IVPB SCH (11:32)
[2017-08-27] MEDS: Mupirocin 2% Ointment (NASAL) NAS SCH ×2 (11:33→17:35)
[2017-08-27] MEDS: Saccharomyces Boulardi 250 mg Cap PO SCH (11:41)
[2017-08-27] MEDS: POLYETHYLENE GLYCOL 3350 17 GM/Dose PACKET PO SCH (11:41)
[2017-08-27] MEDS: Pantoprazole 40 mg EC Tab PO SCH (11:42)
[2017-08-27] MEDS: guaiFENesin 600 mg ER Tab PO SCH (11:42)
[2017-08-27] MEDS: Phenylephrine 30 MG in Sodium Chloride 0.9% 250 ML IV PRN (12:00)
[2017-08-27] MEDS: Propofol 10 mg/ml 1,000 MG/100 ML VIAL IV PRN ×2 (12:00→18:46)
[2017-08-27] MEDS ORDERED: Propofol 10 mg/ml Inj (100 ml) IV SCH (12:15)
[2017-08-27] MEDS ORDERED: Etomidate 20 mg/10ml Inj IV ONE (12:16)
[2017-08-27] MEDS ORDERED: Propofol 10 mg/ml Inj (20 ML) ONE (12:17)
[2017-08-27] MEDS ORDERED: Propofol 10 mg/ml Inj (20 ML) IV ONE (12:20)
[2017-08-27] MEDS ORDERED: Dexmedetomidine Hydrochloride 200 MCG in Sodium Chloride 0.9% 48 ML IV PRN (13:06)
--- NOTE | 2017-08-27 13:38 | RAD ---
HISTORY: et tube, central line COMPARISON: Chest radiograph performed 3 hours prior. FINDINGS: LUNGS: Stable left upper/ midlung opacity. Increased patchy density at the right lung base. Stably prominent bronchovascular markings. PLEURA: No significant pleural effusion identified, no pneumothorax apparent. CARDIOVASCULAR: Cardiomediastinal silhouette within normal limits. OSSEOUS STRUCTURES: Unchanged. VISUALIZED UPPER ABDOMEN: Normal. OTHER FINDINGS: New endotracheal tube with tip between the clavicles and the marcial. New right internal jugular access central venous catheter with catheter tip in the right brachiocephalic vein. IMPRESSION: New endotracheal tube and right internal jugular access central venous catheter in satisfactory position. Increased patchy density in the right lung base, may represent atelectasis versus developing infiltrate. No other significant interval changes.
[2017-08-27 13:59] LABS: ARTERIAL BLOOD GAS HCO3 16.1 mmol/L (21-28); ARTERIAL BLOOD GAS O2 SAT 93.1 % (95-98); ARTERIAL BLOOD GAS PCO2 58 mm/Hg (35-45); ARTERIAL BLOOD GAS PH 7.12 (7.35-7.45); ARTERIAL BLOOD GAS PO2 69 mm/Hg (80-100); ARTERIAL BLOOD GAS TCO2 20.7 mmol/L (22-28)
[2017-08-27 14:06] LABS: BASO % 0.8 % (0.0-2.0); EOS % 1.5 % (0.0-4.0); LYMPH # 0.2 K/uL (1.0-4.3); MEAN CELL VOLUME 88.2 fL (80.0-94.0); MEAN CORPUSCULAR HEMOGLOBIN 30.3 pg (27.0-31.0); MEAN CORPUSCULAR HGB CONC 34.4 g/dL (33.0-37.0); MONO % 6.5 % (0.0-10.0); NEUT # 0.2 K/uL (1.8-7.0); NEUT % 37.2 % (50.0-75.0); NRBC % 1.9 % (0.0-2.0); RBC 2.98 Mil/uL (4.40-5.90)
[2017-08-27 14:16] LABS: WHITE BLOOD COUNT 0.4 K/uL (4.8-10.8)
[2017-08-27] MEDS: Atovaquone 750 mg/5 ml Susp UD PO SCH (14:23)
[2017-08-27] MEDS ORDERED: Metoprolol 1 mg/ml Inj IVP ONE (14:30)
[2017-08-27 14:40] LABS: ALBUMIN 3.3 g/dL (3.5-5.0)
[2017-08-27 14:46] LABS: ALT/SGPT 99 U/L (21-72); AST/SGOT 113 U/L (17-59); BLOOD UREA NITROGEN 26 mg/dL (9-20); CALCIUM 6.8 mg/dl (8.6-10.4); GFR AFRICAN-AMERICAN 58; GFR NON-AFRICAN AMERICAN 48
[2017-08-27 14:50] LABS: B-TYPE NATRIURETIC PEPTIDE 6450 pg/mL (0-900)
[2017-08-27 16:21] LABS: SQUAMOUS EPITHIAL 3 /hpf (0-5); URINE AMORPHOUS SEDIMENT FEW /ul (<OCC); URINE BACTERIA RARE (<OCC); URINE BILIRUBIN NEGATIVE (NEGATIVE); URINE BLOOD 1+ (NEGATIVE); URINE CLARITY Hazy (Clear); URINE COLOR Yellow (YELLOW); URINE GLUCOSE (UA) 1+ mg/dL (Normal); URINE LEUKOCYTE ESTERASE NEG Leu/uL (Negative); URINE PROTEIN NEGATIVE (NEGATIVE); URINE UROBILINOGEN NORMAL mg/dL (0.2-1.0)
[2017-08-27 16:23] LABS: INR 1.4; PROTHROMBIN TIME 15.6 SECONDS (9.7-12.2)
--- NOTE | 2017-08-27 16:53 | CP.PCM.PN ---
Subjective - Date & Time of Evaluation Date of Evaluation: 08/27/17 Time of Evaluation: 12:00 - Subjective Subjective: clinically worsened now intubated today Objective - Vital Signs/Intake and Output Vital Signs (last 24 hours): Temp Pulse Resp BP Pulse Ox 99.1 F 134 H 22 92/59 L 98 08/27/17 16:00 08/27/17 16:00 08/27/17 16:00 08/27/17 16:00 08/27/17 16:00 Intake and Output: 08/27/17 08/27/17 06:59 18:59 Intake Total 50 500 Balance 50 500 - Medications Medications: Current Medications Acetaminophen (Tylenol 325mg Tab) 650 mg PO Q8 PRN PRN Reason: Fever >100.4 F Last Admin: 08/27/17 07:16 Dose: 650 mg Albuterol/Ipratropium (Duoneb 3 Mg/0.5 Mg (3 Ml) Ud) 3 ml INH RQ6 RENAN Last Admin: 08/27/17 13:17 Dose: Not Given Atovaquone (Mepron) 1,500 mg PO DAILY RENAN PRN Reason: Protocol Last Admin: 08/27/17 14:23 Dose: Not Given Hydrocortisone Sodium Succinate (Solu-Cortef) 100 mg IV Q8 RENAN Last Admin: 08/27/17 13:31 Dose: 100 mg Hydromorphone HCl (Dilaudid) 2 mg IVP Q3H PRN PRN Reason: Pain, severe (8-10) Last Admin: 08/27/17 05:11 Dose: 2 mg Vancomycin/Sodium Chloride (Vancomycin 1 Gm/Ns 200 Ml) 1 gm in 200 mls @ 167 mls/hr IVPB Q24H RENAN PRN Reason: Protocol Stop: 08/30/17 18:01 Last Admin: 08/26/17 18:01 Dose: 167 mls/hr Meropenem (Merrem Iv 1 Gm Premix) 50 mls @ 100 mls/hr IVPB Q8 RENAN PRN Reason: Protocol Last Admin: 08/27/17 05:11 Dose: 100 mls/hr Fluconazole (Diflucan Iv 100 Mg/50 Ml Ns) 50 mls @ 100 mls/hr IVPB DAILY RENAN PRN Reason: Protocol Last Admin: 08/27/17 11:32 Dose: 100 mls/hr Phenylephrine HCl 30 mg/ (Sodium Chloride) 253 mls @ 20.23 mls/hr IV .[id number] PRN; Protocol; 40 MCG/MIN PRN Reason: TITRATE PER MD ORDER Last Admin: 08/27/17 12:00 Dose: 40 mcg/min, 20.23 mls/hr Propofol (Diprivan) 1,000 mg in 100 mls @ 2.218 mls/hr IV .Q24H PRN; Protocol; 5 MCG/KG/MIN PRN Reason: TITRATE PER MD ORDER Last Titration: 08/27/17 16:45 Dose: 30 mcg/kg/min, 13.308 mls/hr Dexmedetomidine HCl 200 mcg/ (Sodium Chloride) 50 mls @ 3.69 mls/hr IV TITR PRN ; Protocol; 0.2 MCG/KG/HR PRN Reason: Sedation Last Admin: 08/27/17 16:46 Dose: 0.2 mcg/kg/hr, 3.69 mls/hr Doxycycline Hyclate 100 mg/ (Sodium Chloride) 100 mls @ 100 mls/hr IVPB Q12H RENAN PRN Reason: Protocol Insulin Aspart (Novolog) 0 unit SC Q6 RENAN PRN Reason: Protocol Mupirocin (Bactroban 2% Nasal) 0.25 gm JORDON BID RENAN Stop: 08/30/17 18:01 Last Admin: 08/27/17 11:33 Dose: 0.25 gm Pantoprazole Sodium (Protonix Inj) 40 mg IVP Q12H RENAN - Labs Labs: 08/27/17 13:55 08/27/17 13:55 PT 15.6 SECONDS (9.7-12.2) H 08/27/17 16:02 INR 1.4 08/27/17 16:02 APTT 39 SECONDS (21-34) H 08/27/17 16:02 - Constitutional Appears: Well - Head Exam Head Exam: ATRAUMATIC, NORMAL INSPECTION, NORMOCEPHALIC - Eye Exam Eye Exam: EOMI, Normal appearance, PERRL Pupil Exam: NORMAL ACCOMODATION, PERRL - ENT Exam ENT Exam: Mucous Membranes Moist, Normal Exam - Neck Exam Neck Exam: Full ROM, Normal Inspection. absent: Lymphadenopathy - Respiratory Exam Respiratory Exam: Decreased Breath Sounds - Cardiovascular Exam Cardiovascular Exam: REGULAR RHYTHM, +S1, +S2 - GI/Abdominal Exam GI & Abdominal Exam: Soft, Diminished Bowel Sounds - Rectal Exam Rectal Exam: Deferred Assessment and Plan (1) Acute respiratory failure Status: Acute (2) Anemia Status: Acute (3) Chronic pain Status: Acute (4) Esophagitis Status: Acute (5) Gastritis Status: Acute (6) Pancytopenia Status: Acute (7) Abdominal pain Status: Acute (8) Chest discomfort Status: Acute (9) Constipation Status: Acute (10) Intractable abdominal pain Status: Acute (11) Metastatic malignant neoplasm to prostate Status: Acute (12) Neutropenia Status: Acute - Assessment and Plan (Free Text) Plan: intubated today spoke to family pt is on multip iv antibiotic sen byid and pulm and intesive care unit specialist septic work up all family member are here pt is ful code as ordered 61 year old male with past medical history of prostate cancer with mets to bone is being transferred to ICU for respiratory distress 2/2 pulmonary edema Pulmonary edema - Pt will be transferred to ICU - started on phenylephrine 40 mcg/min. will require central line for further resuscitation. consent obtained - BiPAP - Will check CXR, EKG, trop and ABG Pancytopenia - on neutropenic percuations 2/2 radiation vs. PNA - currently febrile - pt received tylenol. Will give stat dose of ibuprofen. Cooling blankets prn prostate ca - management per heme/onc prophylaxis - protonix - scds.
--- NOTE | 2017-08-27 16:54 | PCM.PROC ---
Procedures Attestation:: I certify that I have explained the specified Operation(s) or Procedure(s), risks, benefits and reasonable alternatives to the Patient and/or other person responsible. The opportunity was given to ask questions and all questions answered - Intubation Sedative: Etomidate, Other Paralytic: Rocuronimum Laryngoscope: Glidescope Assist Device Used: Fiber Optic Device ET Tube Size: 7.5 ET Tube Uncuffed: No ET Tube Secured at Depth: 22 ET Tube Secured Locarion: Lips ET Tube Placement Confirmation: Visualized Passing Through Cords, Breath Sounds Equal Bilaterally, No Breath Sounds Over Epigastrum, Confirmation w/Capnometry Patient Tolerated Procedure: Well Procedure Immediate Complications: None
--- NOTE | 2017-08-27 17:00 | PCM.PROC ---
Procedures Attestation:: I certify that I have explained the specified Operation(s) or Procedure(s), risks, benefits and reasonable alternatives to the Patient and/or other person responsible. The opportunity was given to ask questions and all questions answered - Central Line Placement Right Internal Jugular Triple Lumen Catheter Aseptic technique was employed throughout the procedure: Hand Hygiene done prior to procedure, Full sterile barriers (mask, hair cover, sterile gown, sterile gloves), Full body sterile drape, Chloraprep Antiseptic: 30 second prep for IJ or SC sites CVP Time Out Performed: Yes Pt. Placed on Pulse Ox Monitor: Yes Central Line Prep: Chlorhexidine-Alcohol Combination Local Anesthesia Used: Lidocaine 1% Amount of Anesthesia Used (mls): 5 Ultrasound Used for Placement: Yes Central Line Lumen Inserted: triple Central Line Length: 16 cm Post Procedure: Sutured in Place, Good Blood Return, All Ports Aspirated, Flushed, Capped, Sterile Dressing Applied Secured by: Suture Post procedure dressing: Clear vapor permeable, Chlorhexidine disc (Biopatch) Post Procedure X-Ray: Yes Patient Tolerated Procedure: Well Immediate Complications: None
--- NOTE | 2017-08-27 17:03 | VASCLAB ---
PROCEDURE: Lower Extremity Venous Duplex Exam. HISTORY: Hypoxia PRIORS: None. TECHNIQUE: Bilateral common femoral, femoral, popliteal and posterior tibial, peroneal and great saphenous veins were evaluated. Flow was assessed with color Doppler, compressibility, assessment of phasic flow and augmentation response. Report prepared by FIORDALIZA Villarreal, RVT FINDINGS: RIGHT: 1. Common Femoral Vein: 1.1. Compressibility - Fully compressible: Thrombus - None : Flow - Phasic: Augmentation -Normal: Reflux - None. 2. Femoral Vein: 2.1. Compressibility - Fully compressible: Thrombus - None : Flow - Phasic: Augmentation -Normal: Reflux - None. 3. Popliteal Vein: 3.1. Compressibility - Fully compressible: Thrombus - None : Flow - Phasic: Augmentation -Normal: Reflux - None. 4. Posterior Tibial Vein: 4.1. Compressibility - Fully compressible: Thrombus - None: Flow - Phasic: Augmentation -Normal: Reflux - None. 5. Peroneal Vein: 5.1. Compressibility - Fully compressible: Thrombus - None: Flow - Phasic: Augmentation -Normal: Reflux - None. 6. Great Saphenous Vein: 6.1. Compressibility - Fully compressible: Thrombus - None: Flow - Phasic: Augmentation - Normal: Reflux - None. LEFT: 1. Common Femoral Vein: 1.1. Compressibility - Fully compressible: Thrombus - None: Flow - Phasic: Augmentation -Normal: Reflux - None. 2. Femoral Vein: 2.1. Compressibility - Fully compressible: Thrombus - None: Flow - Phasic: Augmentation -Normal: Reflux - None. 3. Popliteal Vein: 3.1. Compressibility - Fully compressible: Thrombus - None : Flow - Phasic: Augmentation -Normal: Reflux - None. 4. Posterior Tibial Vein: 4.1. Compressibility - Fully compressible: Thrombus - None: Flow - Phasic: Augmentation -Normal: Reflux - None. 5. Peroneal Vein: 5.1. Compressibility - Fully compressible: Thrombus - None: Flow - Phasic: Augmentation -Normal: Reflux - None. 6. Great Saphenous Vein: 6.1. Compressibility - Fully compressible: Thrombus - None: Flow - Phasic: Augmentation - Normal: Reflux - None. OTHER FINDINGS: Right: None significant. Left: None significant. IMPRESSION: Right: No evidence of deep or superficial vein thrombosis of the right lower extremity. Normal valve function noted of the right side. Left: No evidence of deep or superficial vein thrombosis of the left lower extremity. Normal valve function noted of the left side.
[2017-08-27] MEDS: (Novolog) Insulin Aspart, Recombinant 100 u/ml 10 ml vial SC SCH (17:36)
[2017-08-27] MEDS: Vancomycin 1 gm/NS 200 ml 1 GM/200 ML BAG IVPB SCH (18:26)
--- NOTE | 2017-08-27 18:59 | CP.PCM.CON ---
History of Present Illness - History of Present Illness History of Present Illness: came to evaluate patient chart reviewed. multiple family members are at the bedside. conservative management. full consult to follow. Past Patient History - Past Medical History & Family History Past Medical History?: Yes - Past Social History Smoking Status: Never Smoked Chewing Tobacco Use: No Cigar Use: No Alcohol: None - CARDIAC Hx Cardiac Disorders: No - PULMONARY Hx Respiratory Disorders: No - NEUROLOGICAL Hx Neurological Disorder: No - HEENT Hx HEENT Problems: No - RENAL Hx Chronic Kidney Disease: No - ENDOCRINE/METABOLIC Hx Endocrine Disorders: No - HEMATOLOGICAL/ONCOLOGICAL Hx Blood Transfusions: Yes Hx Blood Transfusion Reaction: No - INTEGUMENTARY Hx Dermatological Problems: No - MUSCULOSKELETAL/RHEUMATOLOGICAL Hx Musculoskeletal Disorders: No Hx Falls: No Hx Unsteady Gait: No - GASTROINTESTINAL Hx Gastrointestinal Disorders: No - GENITOURINARY/GYNECOLOGICAL Hx Genitourinary Disorders: Yes Hx Prostate Cancer: Yes (radiation) - PSYCHIATRIC Hx Substance Use: No - SURGICAL HISTORY Hx Surgeries: No - ANESTHESIA Hx Anesthesia: No Hx Anesthesia Reactions: No Hx Malignant Hyperthermia: No Meds Allergies/Adverse Reactions: Allergies Allergy/AdvReac Type Severity Reaction Status Date / Time No Known Allergies Allergy Verified 08/09/17 11:24 - Medications Medications: Current Medications Acetaminophen (Tylenol 325mg Tab) 650 mg PO Q8 PRN PRN Reason: Fever >100.4 F Last Admin: 08/27/17 07:16 Dose: 650 mg Albuterol/Ipratropium (Duoneb 3 Mg/0.5 Mg (3 Ml) Ud) 3 ml INH RQ6 RENAN Last Admin: 08/27/17 13:17 Dose: Not Given Atovaquone (Mepron) 1,500 mg PO DAILY RENAN PRN Reason: Protocol Last Admin: 08/27/17 14:23 Dose: Not Given Hydrocortisone Sodium Succinate (Solu-Cortef) 100 mg IV Q8 RENNA Last Admin: 08/27/17 13:31 Dose: 100 mg Hydromorphone HCl (Dilaudid) 2 mg IVP Q3H PRN PRN Reason: Pain, severe (8-10) Last Admin: 08/27/17 05:11 Dose: 2 mg Vancomycin/Sodium Chloride (Vancomycin 1 Gm/Ns 200 Ml) 1 gm in 200 mls @ 167 mls/hr IVPB Q24H RENAN PRN Reason: Protocol Stop: 08/30/17 18:01 Last Admin: 08/27/17 18:26 Dose: 167 mls/hr Meropenem (Merrem Iv 1 Gm Premix) 50 mls @ 100 mls/hr IVPB Q8 RENAN PRN Reason: Protocol Last Admin: 08/27/17 15:00 Dose: 100 mls/hr Fluconazole (Diflucan Iv 100 Mg/50 Ml Ns) 50 mls @ 100 mls/hr IVPB DAILY RENAN PRN Reason: Protocol Last Admin: 08/27/17 11:32 Dose: 100 mls/hr Phenylephrine HCl 30 mg/ (Sodium Chloride) 253 mls @ 20.23 mls/hr IV .[id number] PRN; Protocol; 40 MCG/MIN PRN Reason: TITRATE PER MD ORDER Last Admin: 08/27/17 12:00 Dose: 40 mcg/min, 20.23 mls/hr Propofol (Diprivan) 1,000 mg in 100 mls @ 2.218 mls/hr IV .Q24H PRN; Protocol; 5 MCG/KG/MIN PRN Reason: TITRATE PER MD ORDER Last Admin: 08/27/17 18:46 Dose: 40 mcg/kg/min, 17.745 mls/hr Dexmedetomidine HCl 200 mcg/ (Sodium Chloride) 50 mls @ 3.69 mls/hr IV TITR PRN ; Protocol; 0.2 MCG/KG/HR PRN Reason: Sedation Last Admin: 08/27/17 16:46 Dose: 0.2 mcg/kg/hr, 3.69 mls/hr Doxycycline Hyclate 100 mg/ (Sodium Chloride) 100 mls @ 100 mls/hr IVPB Q12H RENAN PRN Reason: Protocol Last Admin: 08/27/17 17:33 Dose: 100 mls/hr Insulin Aspart (Novolog) 0 unit SC Q6 RENAN PRN Reason: Protocol Last Admin: 08/27/17 17:36 Dose: 1 u Mupirocin (Bactroban 2% Nasal) 0.25 gm JORDON BID RENAN Stop: 08/30/17 18:01 Last Admin: 08/27/17 17:35 Dose: 0.25 gm Pantoprazole Sodium (Protonix Inj) 40 mg IVP Q12H RENAN Last Admin: 08/27/17 16:55 Dose: 40 mg Results - Vital Signs Recent Vital Signs: Last Vital Signs Temp 99.1 F 08/27/17 16:00 Pulse 133 H 08/27/17 17:00 Resp 24 08/27/17 17:00 BP 88/57 L 08/27/17 17:00 Pulse Ox 97 08/27/17 17:00 - Labs Result Diagrams: 08/27/17 13:55 08/27/17 13:55 Labs: Laboratory Results - last 24 hr 08/27/17 08/27/17 08/27/17 07:00 07:00 10:12 WBC 0.2 L* D RBC 2.87 L Hgb 8.6 L Hct 25.2 L MCV 87.6 MCH 30.1 MCHC 34.3 RDW 15.9 H Plt Count 38 L MPV 8.2 Neut % (Auto) Lymph % (Auto) Maverick % (Auto) Eos % (Auto) Baso % (Auto) Neut # (Auto) Lymph # (Auto) Maverick # (Auto) Eos # (Auto) Baso # (Auto) PT INR APTT Puncture Site Rba pCO2 26 L pO2 129 H HCO3 20.3 L ABG pH 7.42 ABG Total CO2 17.7 L ABG O2 Saturation 99.1 H ABG Base Excess -6.0 L Harpreet Test Na ABG Potassium 3.8 A-a O2 Difference 552.0 Respiratory Index 4.3 Glucose 148 H Lactate 2.9 H Liter Flow 15.0 Mechanical Rate FiO2 100.0 Tidal Volume PEEP Crit Value Called To Crit Value Called By Crit Value Read Back Blood Gas Notified Time Sodium 126 L 127.0 L Potassium 5.0 Chloride 94 L 99.0 Carbon Dioxide 22 Anion Gap 16 BUN 20 Creatinine 1.1 Est GFR ( Amer) > 60 Est GFR (Non-Af Amer) > 60 POC Glucose (mg/dL) Random Glucose 128 H Calcium 7.2 L Phosphorus Magnesium Total Bilirubin 2.8 H Direct Bilirubin 2.4 H AST 129 H D ALT 103 H D Alkaline Phosphatase 311 H Troponin I NT-Pro-B Natriuret Pep Total Protein 6.4 Albumin 3.2 L Globulin 3.2 Albumin/Globulin Ratio 1.0 Arterial Blood Potassium 3.8 Urine Color Urine Clarity Urine pH Ur Specific [place] Urine Protein Urine Glucose (UA) Urine Ketones Urine Blood Urine Nitrate Urine Bilirubin Urine Urobilinogen Ur Leukocyte Esterase Urine WBC (Auto) Urine RBC (Auto) Ur Squamous Epith Cells Amorphous Sediment Urine Bacteria Random Vancomycin 08/27/17 08/27/17 08/27/17 13:47 13:54 13:55 WBC RBC Hgb Hct MCV MCH MCHC RDW Plt Count MPV Neut % (Auto) Lymph % (Auto) Maverick % (Auto) Eos % (Auto) Baso % (Auto) Neut # (Auto) Lymph # (Auto) [place]verick # (Auto) Eos # (Auto) Baso # (Auto) PT INR APTT Puncture Site Lf pCO2 58 H pO2 69 L HCO3 16.1 L ABG pH 7.12 L* ABG Total CO2 20.7 L ABG O2 Saturation 93.1 L ABG Base Excess -10.9 L Harpreet Test Na ABG Potassium 4.1 A-a O2 Difference 572.0 Respiratory Index 8.3 Glucose 158 H Lactate 1.3 Liter Flow Mechanical Rate 20 FiO2 100.0 Tidal Volume 500 PEEP 5 Crit Value Called To Dr se hayes Crit Value Called By Enrique arguello [facility] Crit Value Read Back Y Blood Gas Notified Time 1400 Sodium 130.0 L 129 L Potassium 4.8 Chloride 100.0 96 L Carbon Dioxide 21 L Anion Gap 17 BUN 26 H Creatinine 1.5 Est GFR ( Amer) 58 Est GFR (Non-Af Amer) 48 POC Glucose (mg/dL) 176 H Random Glucose 167 H Calcium 6.8 L Phosphorus 4.7 H Magnesium 2.1 Total Bilirubin 3.0 H Direct Bilirubin AST 113 H ALT 99 H Alkaline Phosphatase 283 H Troponin I < 0.0120 NT-Pro-B Natriuret Pep 6450 H Total Protein 6.6 Albumin 3.3 L Globulin 3.3 Albumin/Globulin Ratio 1.0 Arterial Blood Potassium 4.1 Urine Color Urine Clarity Urine pH Ur Specific [place] Urine Protein Urine Glucose (UA) Urine Ketones Urine Blood Urine Nitrate Urine Bilirubin Urine Urobilinogen Ur Leukocyte Esterase Urine WBC (Auto) Urine RBC (Auto) Ur Squamous Epith Cells Amorphous Sediment Urine Bacteria Random Vancomycin 08/27/17 08/27/17 08/27/17 13:55 13:55 13:55 WBC 0.4 L* D RBC 2.98 L Hgb 9.0 L Hct 26.3 L MCV 88.2 MCH 30.3 MCHC 34.4 RDW 17.0 H Plt Count 46 L MPV 8.0 Neut % (Auto) 37.2 L Lymph % (Auto) 54.0 H Maverick % (Auto) 6.5 Eos % (Auto) 1.5 Baso % (Auto) 0.8 Neut # (Auto) 0.2 L Lymph # (Auto) 0.2 L Maverick # (Auto) 0.0 Eos # (Auto) 0.0 Baso # (Auto) 0.0 PT INR APTT Puncture Site pCO2 pO2 HCO3 ABG pH ABG Total CO2 ABG O2 Saturation ABG Base Excess Harpreet Test ABG Potassium A-a O2 Difference Respiratory Index Glucose Lactate Liter Flow Mechanical Rate FiO2 Tidal Volume PEEP Crit Value Called To Crit Value Called By Crit Value Read Back Blood Gas Notified Time Sodium Potassium Chloride Carbon Dioxide Anion Gap BUN Creatinine Est GFR ( Amer) Est GFR (Non-Af Amer) POC Glucose (mg/dL) Random Glucose Calcium Phosphorus Magnesium Total Bilirubin Direct Bilirubin AST ALT Alkaline Phosphatase Troponin I < 0.0120 NT-Pro-B Natriuret Pep Total Protein Albumin Globulin Albumin/Globulin Ratio Arterial Blood Potassium Urine Color Urine Clarity Urine pH Ur Specific [place] Urine Protein Urine Glucose (UA) Urine Ketones Urine Blood Urine Nitrate Urine Bilirubin Urine Urobilinogen Ur Leukocyte Esterase Urine WBC (Auto) Urine RBC (Auto) Ur Squamous Epith Cells Amorphous Sediment Urine Bacteria Random Vancomycin < 5.0 08/27/17 08/27/17 16:02 16:02 WBC RBC Hgb Hct MCV MCH MCHC RDW Plt Count MPV Neut % (Auto) Lymph % (Auto) [place] % (Auto) Eos % (Auto) Baso % (Auto) Neut # (Auto) Lymph # (Auto) [place] # (Auto) Eos # (Auto) Baso # (Auto) PT 15.6 H INR 1.4 APTT 39 H Puncture Site pCO2 pO2 HCO3 ABG pH ABG Total CO2 ABG O2 Saturation ABG Base Excess Harpreet Test ABG Potassium A-a O2 Difference Respiratory Index Glucose Lactate Liter Flow Mechanical Rate FiO2 Tidal Volume PEEP Crit Value Called To Crit Value Called By Crit Value Read Back Blood Gas Notified Time Sodium Potassium Chloride Carbon Dioxide Anion Gap BUN Creatinine Est GFR ( Amer) Est GFR (Non-Af Amer) POC Glucose (mg/dL) Random Glucose Calcium Phosphorus Magnesium Total Bilirubin Direct Bilirubin AST ALT Alkaline Phosphatase Troponin I NT-Pro-B Natriuret Pep Total Protein Albumin Globulin Albumin/Globulin Ratio Arterial Blood Potassium Urine Color Yellow Urine Clarity Hazy Urine pH 5.0 Ur Specific [place] 1.009 Urine Protein Negative Urine Glucose (UA) 1+ H Urine Ketones Negative Urine Blood 1+ H Urine Nitrate Negative Urine Bilirubin Negative Urine Urobilinogen Normal Ur Leukocyte Esterase Neg Urine WBC (Auto) 4 Urine RBC (Auto) 6 H Ur Squamous Epith Cells 3 Amorphous Sediment Few H Urine Bacteria Rare Random Vancomycin
--- NOTE | 2017-08-27 20:23 | CP.PCM.PN ---
Subjective - Date & Time of Evaluation Date of Evaluation: 08/27/17 Time of Evaluation: 20:23 - Subjective Subjective: CHIEF COMPLAINTS TODAY : 08/27/17-ICU patient transferred to ICU this a.m. events noted FEBRILE /TACHYCARDIC/HYPOXIC C/O PRODUCTIVE COUGH. PANCYTOPENIC +VE MRSA NARES ROS. HEENT : N. Resp : +VE COUGH, SHORTNESS OF BREATH , NO wheezing ,pleuritic CP ,or hemoptysis Cardio : No anginal CP, PND, orthopnea, palpitation GI : ABDOMINAL PAIN improving, n/v ,diarrhea or GI bleeding . AUTO WASH BUFFER : No headache, vertigo, focal deficit. Musculoskel : No joint swelling , Derm : No rash Psych : Normal affect. Ext : No swelling ,calf pain PE. Pt. is alert awake in no distress. V.S As noted in the chart Head ,ear nose,throat and eyes : Normal. Neck : Supple with normal carotids. Lungs: RHONCHI LT SIDE. Heart : S1 & S2 REGULAR . No murmur. Abd : SOFT, NON TENDER , with normal bowel sounds. Neuro : Moves all ext. with no localized deficit. Ext : No edema with intact pulses.Non tender calves Derm : No rashes or decubitus ulcer. LABS/RADIOLOGY: reviewed BLOOD CULTURES -VE X TO DATE CXR 08/25/17 NEW LT PERIHILAR INFILTRATE ASSESSMENT NEUTRPENIC FEVERS NEW PNEUMONIA METASTATIC CA PROSTRATE. ESOPHAGITIS VI S/P EGD ABDOMINAL PAIN-IMPROVING /PLAN : Patient started on steroids AGREE WITH ADDING PO ATOVAQUONE 1500 MG OD WITH FATTY FOODS FOR ? PCP 08/27/17 iv DOXYCYCLINE 100 MG EVERY 12 HOURLY ADDED BY INTENSIVISTS. CONTINUE IV MERREM 1GM IVPB Q8HRLY FOR BR[employer]ER [employer]AGE.. 08/26/17 CONTINUE IV DIFLUCAN 200 MG LOADING DOSE F/U 100 MG ONCE A DAY DAILY 08/22/17. CONTINUE IV VANCOMYCIN 1GM IVPB Q 24HRLY DAILY.08/23/17 BACTOBEN CREAM LOCALLY TO NARIS BID X 7 DAYS. F/U SPUTUM CULTURES- ORDERED IV STEROIDS fOLLOW-UP BLOOD CULTURES AND URINE CULTURES TO ADJUST ANTIBIOTICS. PT ON GRANIX NEUTROPENIC PRECAUTIONS. Objective - Vital Signs/Intake and Output Vital Signs (last 24 hours): Temp Pulse Resp BP Pulse Ox 99.1 F 144 H 36 H 240/103 H 95 07/05/18 16:00 08/27/17 19:30 08/27/17 19:30 08/27/17 19:30 08/27/17 19:00 Intake and Output: 08/27/17 08/28/17 18:59 06:59 Intake Total 1142.6 33.8 Output Total 55 10 Balance 1087.6 23.8 - Medications Medications: Current Medications Acetaminophen (Tylenol 325mg Tab) 650 mg PO Q8 PRN PRN Reason: Fever >100.4 F Last Admin: 08/27/17 07:16 Dose: 650 mg Albuterol/Ipratropium (Duoneb 3 Mg/0.5 Mg (3 Ml) Ud) 3 ml INH RQ6 RENAN Last Admin: 08/27/17 19:18 Dose: Not Given Atovaquone (Mepron) 1,500 mg PO DAILY RENAN PRN Reason: Protocol Last Admin: 08/27/17 14:23 Dose: Not Given Docusate Sodium (Colace) 100 mg PO DAILY [facility] Hydrocortisone Sodium Succinate (Solu-Cortef) 100 mg IV Q8 [facility] Last Admin: 08/27/17 13:31 Dose: 100 mg Hydromorphone HCl (Dilaudid) 2 mg IVP Q3H PRN PRN Reason: Pain, severe (8-10) Last Admin: 08/27/17 05:11 Dose: 2 mg Vancomycin/Sodium Chloride (Vancomycin 1 Gm/Ns 200 Ml) 1 gm in 200 mls @ 167 mls/hr IVPB Q24H RENAN PRN Reason: Protocol Stop: 08/30/17 18:01 Last Admin: 08/27/17 18:26 Dose: 167 mls/hr Meropenem (Merrem Iv 1 Gm Premix) 50 mls @ 100 mls/hr IVPB Q8 RENAN PRN Reason: Protocol Last Admin: 08/27/17 15:00 Dose: 100 mls/hr Fluconazole (Diflucan Iv 100 Mg/50 Ml Ns) 50 mls @ 100 mls/hr IVPB DAILY RENAN PRN Reason: Protocol Last Admin: 08/27/17 11:32 Dose: 100 mls/hr Phenylephrine HCl 30 mg/ (Sodium Chloride) 253 mls @ 20.23 mls/hr IV .[id number] PRN; Protocol; 40 MCG/MIN PRN Reason: TITRATE PER MD ORDER Last Admin: 08/27/17 12:00 Dose: 40 mcg/min, 20.23 mls/hr Propofol (Diprivan) 1,000 mg in 100 mls @ 2.218 mls/hr IV .Q24H PRN; Protocol; 5 MCG/KG/MIN PRN Reason: TITRATE PER MD ORDER Last Admin: 08/27/17 18:46 Dose: 40 mcg/kg/min, 17.745 mls/hr Dexmedetomidine HCl 200 mcg/ (Sodium Chloride) 50 mls @ 3.69 mls/hr IV TITR PRN ; Protocol; 0.2 MCG/KG/HR PRN Reason: Sedation Last Admin: 08/27/17 16:46 Dose: 0.2 mcg/kg/hr, 3.69 mls/hr Doxycycline Hyclate 100 mg/ (Sodium Chloride) 100 mls @ 100 mls/hr IVPB Q12H RENAN PRN Reason: Protocol Last Admin: 08/27/17 17:33 Dose: 100 mls/hr Insulin Aspart (Novolog) 0 unit SC Q6 RENAN PRN Reason: Protocol Last Admin: 08/27/17 17:36 Dose: 1 u Mupirocin (Bactroban 2% Nasal) 0.25 gm JORDON BID RENAN Stop: 08/30/17 18:01 Last Admin: 08/27/17 17:35 Dose: 0.25 gm Pantoprazole Sodium (Protonix Inj) 40 mg IVP Q12H RENAN Last Admin: 08/27/17 16:55 Dose: 40 mg Senna/Docusate Sodium (Senokot S 50 Mg-8.6 Mg) 1 tab GT DAILY RENAN - Labs Labs: 08/27/17 13:55 08/27/17 13:55 PT 15.6 SECONDS (9.7-12.2) H 08/27/17 16:02 INR 1.4 08/27/17 16:02 APTT 39 SECONDS (21-34) H 08/27/17 16:02 Assessment and Plan (1) Pancytopenia Status: Acute (2) Abdominal pain Status: Acute (3) Esophagitis Status: Acute (4) Metastatic malignant neoplasm to prostate Status: Acute
[2017-08-27 21:22] LABS: ABG ALLEN TEST UNABLE; ARTERIAL BLOOD GAS HCO3 17.4 mmol/L (21-28); ARTERIAL BLOOD GAS O2 SAT 96.6 % (95-98); ARTERIAL BLOOD GAS PCO2 26 mm/Hg (35-45); ARTERIAL BLOOD GAS PH 7.35 (7.35-7.45); ARTERIAL BLOOD GAS PO2 67 mm/Hg (80-100); ARTERIAL BLOOD GAS TCO2 15.2 mmol/L (22-28)
[2017-08-28] MEDS: (Novolog) Insulin Aspart, Recombinant 100 u/ml 10 ml vial SC SCH ×4 (00:05→18:43)
[2017-08-28] MEDS: Albuterol-Ipratrop 3 mg / 0.5 (3 ml) UD INH SCH ×2 (01:41→07:27)
[2017-08-28] MEDS: Propofol 10 mg/ml 1,000 MG/100 ML VIAL IV PRN ×4 (01:45→23:21)
[2017-08-28] MEDS: Phenylephrine 30 MG in Sodium Chloride 0.9% 250 ML IV PRN ×2 (02:45→09:00)
[2017-08-28] MEDS: Meropenem IV 1 gm in NS 50 ML IVPB SCH ×2 (05:23→14:38)
[2017-08-28 05:31] LABS: ARTERIAL BLOOD GAS HCO3 17.7 mmol/L (21-28); ARTERIAL BLOOD GAS O2 SAT 98.5 % (95-98); ARTERIAL BLOOD GAS PCO2 37 mm/Hg (35-45); ARTERIAL BLOOD GAS PH 7.27 (7.35-7.45); ARTERIAL BLOOD GAS PO2 95 mm/Hg (80-100); ARTERIAL BLOOD GAS TCO2 18.1 mmol/L (22-28)
[2017-08-28 06:35] LABS: HEMOGLOBIN 8.9 g/dL (12.0-18.0); MEAN CELL VOLUME 88.1 fL (80.0-94.0); MEAN CORPUSCULAR HEMOGLOBIN 30.3 pg (27.0-31.0); MEAN CORPUSCULAR HGB CONC 34.3 g/dL (33.0-37.0); MEAN PLATELET VOLUME 8.2 fL (7.2-11.7); RBC 2.94 Mil/uL (4.40-5.90); RED CELL DISTRIBUTION WIDTH 16.9 % (11.5-14.5)
[2017-08-28 06:38] LABS: WHITE BLOOD COUNT 0.3 K/uL (4.8-10.8)
[2017-08-28 06:55] LABS: ALB/GLOB RATIO 0.9 (1.0-2.1); ALBUMIN 2.9 g/dL (3.5-5.0)
[2017-08-28 07:03] LABS: TROPONIN I 0.061 ng/mL (0.00-0.120)
--- NOTE | 2017-08-28 08:38 | RAD ---
HISTORY: pt intubated COMPARISON: 08/27/2017. FINDINGS: The right IJV line terminates in the SVC. The endotracheal tube terminates in the mid trachea. Nasogastric tube terminates in the stomach. LUNGS: The lungs are well inflated. The right lung is clear. There is worsening dense consolidation in the left upper lobe. PLEURA: No significant pleural effusion identified, no pneumothorax apparent. CARDIOVASCULAR: Normal. OSSEOUS STRUCTURES: No significant abnormalities. VISUALIZED UPPER ABDOMEN: Normal. OTHER FINDINGS: None. IMPRESSION: Worsening dense consolidation in the left upper lobe.
[2017-08-28] MEDS ORDERED: Sodium Chloride 0.9% 500 ML IV ONE ×3 (08:39→22:57)
--- NOTE | 2017-08-28 09:11 | CP.CCUPN ---
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 He was admitted to the ICU in hypoxic respiratory distress. Pt seen and examined at bedside this morning. Febrile overnight, Tmax 102.4. Unable to obtain ROS as pt is intubated. 08/28/17 10:38 CCU Objective - Vital Signs / Intake & Output Vital Signs (Last 4 hours): Vital Signs Pulse Resp BP Pulse Ox 08/28/17 07:25 125 H 32 H 90/58 L 97 08/28/17 07:10 124 H 32 H 91/63 L 97 08/28/17 07:00 125 H 31 H 97 08/28/17 06:55 126 H 33 H 101/66 97 08/28/17 06:40 125 H 32 H 101/62 97 08/28/17 06:25 123 H 30 H 91/59 L 96 08/28/17 06:10 122 H 31 H 88/58 L 96 08/28/17 06:00 122 H 32 H 96 08/28/17 05:55 123 H 33 H 89/59 L 95 08/28/17 05:40 123 H 36 H 94/61 L 95 08/28/17 05:25 128 H 33 H 100/69 95 08/28/17 05:10 126 H 33 H 96/67 L 95 08/28/17 05:00 127 H 35 H 95 08/28/17 04:55 128 H 33 H 103/70 94 L Intake and Output (Last 8hrs): Intake & Output 08/27/17 08/28/17 08/28/17 22:59 06:59 14:59 Intake Total 841.5 686.4 63.3 Output Total 60 40 Balance 781.5 686.4 23.3 Weight 150 lb Intake: IV 253 240 Intake, IV Amount 588.5 446.4 63.3 Right Forearm 365.2 Right Internal Jugular 95 340 50 Right Medial Port 128.3 106.4 13.3 Output: Urine 60 40 Urethral (Benjamin) 60 40 Other: # Bowel Movements 0 0 0 - Physical Exam Physical Exam Limitations: Positive for: Clinical Condition Head: Positive for: Atraumatic, Normocephalic Respiratory/Chest: Positive for: Decreased Breath Sounds Cardiovascular: Positive for: Regular Rate and Rhythm. Negative for: Murmurs Abdomen: Positive for: Distention, Normal Bowel Sounds Upper Extremity: Positive for: Normal Inspection. Negative for: Cyanosis, Edema Lower Extremity: Positive for: Normal Inspection. Negative for: Edema Neurological: Negative for: GCS=15 Skin: Positive for: Normal Color - Medications Active Medications: Active Medications Generic Name Dose Route Start Last Admin Trade Name Freq PRN Reason Stop Dose Admin Acetaminophen 650 mg 08/22/17 16:33 08/27/17 07:16 Tylenol 325mg Tab PO 650 mg Q8 PRN Administration Fever >100.4 F Albuterol/Ipratropium 3 ml 08/27/17 02:00 08/28/17 07:27 Duoneb 3 Mg/0.5 Mg (3 Ml) Ud INH Not Given RQ6 RENAN Atovaquone 1,500 mg 08/27/17 13:30 08/27/17 14:23 Mepron PO Not Given DAILY RENAN Protocol Docusate Sodium 100 mg 08/28/17 10:00 Colace PO DAILY RENAN Hydrocortisone Sodium Succinate 100 mg 08/27/17 14:00 08/28/17 06:58 Solu-Cortef IV 100 mg Q8 RENAN Administration Hydromorphone HCl 2 mg 08/25/17 11:51 08/27/17 05:11 Dilaudid IVP 2 mg Q3H PRN Administration Pain, severe (8-10) Vancomycin/Sodium Chloride 1 gm in 200 mls @ 167 mls/hr 08/25/17 18:00 18:26 Vancomycin 1 Gm/Ns 200 Ml IVPB 08/30/17 18:01 167 mls/hr Q24H RENAN Administration Protocol Meropenem 50 mls @ 100 mls/hr 08/26/17 06:00 08/28/17 05:23 Merrem Iv 1 Gm Premix IVPB 100 mls/hr Q8 RENAN Administration Protocol Fluconazole 50 mls @ 100 mls/hr 08/27/17 10:00 08/27/17 11:32 Diflucan Iv 100 Mg/50 Ml Ns IVPB 100 mls/hr DAILY RENAN Administration Protocol Phenylephrine HCl 30 mg/ 253 mls @ 20.23 mls/hr 08/27/17 11:15 08/28/17 02:45 Sodium Chloride IV 60 mcg/min .[id number] PRN 30.36 mls/hr TITRATE PER MD ORDER Administration Protocol 40 MCG/MIN Propofol 1,000 mg in 100 mls @ 2.218 mls/hr 08/27/17 12:38 08/28/17 01:45 Diprivan IV 29.98 mcg/kg/min .Q24H PRN 13.3 mls/hr TITRATE PER MD ORDER Administration Protocol 5 MCG/KG/MIN Dexmedetomidine HCl 200 mcg/ 50 mls @ 3.69 mls/hr 08/27/17 13:06 08/27/17 21: 00 Sodium Chloride IV 0 mcg/kg/hr TITR PRN 0 mls/hr Sedation Titration Protocol 0.2 MCG/KG/HR Doxycycline Hyclate 100 mg/ 100 mls @ 100 mls/hr 08/27/17 18:00 08/28/17 05: 25 Sodium Chloride IVPB 100 mls/hr Q12H RENAN Administration Protocol Sodium Chloride 500 mls @ 1,000 mls/hr 08/28/17 08:39 Sodium Chloride 0.9% IV 08/28/17 09:08 .Q30M ONE Insulin Aspart 0 unit 08/27/17 18:00 08/28/17 06:58 Novolog SC Not Given Q6 [facility] Protocol Mupirocin 0.25 gm 08/23/17 18:00 08/27/17 17:35 Bactroban 2% Nasal JORDON 08/30/17 18:01 0.25 gm BID RENAN Administration Pantoprazole Sodium 40 mg 08/27/17 13:30 08/28/17 02:43 Protonix Inj IVP 40 mg Q12H RENAN Administration Senna/Docusate Sodium 1 tab 08/28/17 10:00 Senokot S 50 Mg-8.6 Mg GT DAILY RENAN - Patient Studies Lab Studies: Microbiology Studies 08/23/17 19:18 Blood Culture - Preliminary Blood NO GROWTH AFTER 4 DAYS 08/27/17 13:47 Gram Stain - Final Sputum 08/23/17 16:30 Blood Culture - Preliminary Blood NO GROWTH AFTER 4 DAYS 08/22/17 17:09 Blood Culture - Final Blood-Venous NO GROWTH AFTER 5 DAYS Gram Stain - Final TEST NOT PERFORMED 08/22/17 17:09 Blood Culture - Final Blood-Venous NO GROWTH AFTER 5 DAYS Gram Stain - Final TEST NOT PERFORMED 08/25/17 09:10 Gram Stain - Final Sputum Sputum Culture - Final NORMAL ORAL ERIC Lab Studies 08/28/17 08/28/17 08/28/17 Range/Units 06:26 06:25 06:10 WBC 0.3 L* (4.8-10.8) K/uL RBC 2.94 L (4.40-5.90) Mil/uL Hgb 8.9 L (12.0-18.0) g/dL Hct 25.9 L (35.0-51.0) % MCV 88.1 (80.0-94.0) fL MCH 30.3 (27.0-31.0) pg MCHC 34.3 (33.0-37.0) g/dL RDW 16.9 H (11.5-14.5) % Plt Count 40 L (130-400) K/uL MPV 8.2 (7.2-11.7) fL Neut % (Auto) (50.0-75.0) % Lymph % (Auto) (20.0-40.0) % Gem % (Auto) (0.0-10.0) % Eos % (Auto) (0.0-4.0) % Baso % (Auto) (0.0-2.0) % Neut # (Auto) (1.8-7.0) K/uL Lymph # (Auto) (1.0-4.3) K/uL Gem # (Auto) (0.0-0.8) K/uL Eos # (Auto) (0.0-0.7) K/uL Baso # (Auto) (0.0-0.2) K/uL PT (9.7-12.2) SECONDS INR APTT (21-34) SECONDS Puncture Site pCO2 (35-45) mm/Hg pO2 (80-100) mm/Hg HCO3 (21-28) mmol/L ABG pH (7.35-7.45) ABG Total CO2 (22-28) mmol/L ABG O2 Saturation (95-98) % ABG Base Excess (-2.0-3.0) mmol/L Harpreet Test ABG Potassium (3.6-5.2) mmol/L A-a O2 Difference mm/Hg Respiratory Index Sodium 131 L (132-148) mmol/l Chloride 99 (98-107) mmol/L Glucose (75-110) mg/dl Lactate (0.7-2.1) mmol/L Liter Flow Vent Mode Mechanical Rate FiO2 % Tidal Volume PEEP Crit Value Called To Crit Value Called By Crit Value Read Back Blood Gas Notified Time Potassium 5.2 (3.6-5.2) mmol/L Carbon Dioxide 17 L (22-30) mmol/L Anion Gap 20 (10-20) BUN 44 H (9-20) mg/dL Creatinine 2.3 H (0.8-1.5) mg/dL Est GFR ( Amer) 35 Est GFR (Non-Af Amer) 29 POC Glucose (mg/dL) 115 H (65-110) mg/dL Random Glucose 139 H (75-110) mg/dL Calcium 6.0 L* (8.6-10.4) mg/dl Phosphorus 5.7 H (2.5-4.5) mg/dL Magnesium 2.2 (1.6-2.3) mg/dL Total Bilirubin 4.1 H (0.2-1.3) mg/dL AST 403 H D (17-59) U/L ALT 234 H D (21-72) U/L Alkaline Phosphatase 225 H D (38-126) U/L Troponin I 0.0610 (0.00-0.120) ng/mL NT-Pro-B Natriuret Pep (0-900) pg/mL Total Protein 6.1 L (6.3-8.3) g/dL Albumin 2.9 L (3.5-5.0) g/dL Globulin 3.2 (2.2-3.9) gm/dL Albumin/Globulin Ratio 0.9 L (1.0-2.1) Arterial Blood Potassium (3.6-5.2) mmol/L Urine Color (YELLOW) Urine Clarity (Clear) Urine pH (5.0-8.0) Ur Specific [place] (1.003-1.030) Urine Protein (NEGATIVE) mg/dL Urine Glucose (UA) (Normal) mg/dL Urine Ketones (NEGATIVE) mg/dL Urine Blood (NEGATIVE) Urine Nitrate (NEGATIVE) Urine Bilirubin (NEGATIVE) Urine Urobilinogen (0.2-1.0) mg/dL Ur Leukocyte Esterase (Negative) Snehal/uL Urine WBC (Auto) (0-5) /hpf Urine RBC (Auto) (0-3) /hpf Ur Squamous Epith Cells (0-5) /hpf Amorphous Sediment (<OCC) /ul Urine Bacteria (<OCC) Random Vancomycin ug/mL 08/28/17 08/28/17 08/27/17 Range/Units 05:21 00:02 21:20 WBC (4.8-10.8) K/uL RBC (4.40-5.90) Mil/uL Hgb (12.0-18.0) g/dL Hct (35.0-51.0) % MCV (80.0-94.0) fL MCH (27.0-31.0) pg MCHC (33.0-37.0) g/dL RDW (11.5-14.5) % Plt Count (130-400) K/uL MPV (7.2-11.7) fL Neut % (Auto) (50.0-75.0) % Lymph % (Auto) (20.0-40.0) % Gem % (Auto) (0.0-10.0) % Eos % (Auto) (0.0-4.0) % Baso % (Auto) (0.0-2.0) % Neut # (Auto) (1.8-7.0) K/uL Lymph # (Auto) (1.0-4.3) K/uL Gem # (Auto) (0.0-0.8) K/uL Eos # (Auto) (0.0-0.7) K/uL Baso # (Auto) (0.0-0.2) K/uL PT (9.7-12.2) SECONDS INR APTT (21-34) SECONDS Puncture Site Rb Lr pCO2 37 26 L (35-45) mm/Hg pO2 95 67 L (80-100) mm/Hg HCO3 17.7 L 17.4 L (21-28) mmol/L ABG pH 7.27 L 7.35 (7.35-7.45) ABG Total CO2 18.1 L 15.2 L (22-28) mmol/L ABG O2 Saturation 98.5 H 96.6 (95-98) % ABG Base Excess -9.2 L -9.5 L (-2.0-3.0) mmol/L Harpreet Test Na Unable ABG Potassium 5.0 3.9 (3.6-5.2) mmol/L A-a O2 Difference 572.0 614.0 mm/Hg Respiratory Index 6.0 9.2 Sodium 129.0 L 135.0 (132-148) mmol/l Chloride 101.0 108.0 H (98-107) mmol/L Glucose 142 H 102 (75-110) mg/dl Lactate 1.7 1.8 (0.7-2.1) mmol/L Liter Flow Vent Mode Prvc Prvc Mechanical Rate 25 25 FiO2 100.0 100.0 % Tidal Volume 450 500 PEEP 12 8 Crit Value Called To Crit Value Called By Crit Value Read Back Blood Gas Notified Time Potassium (3.6-5.2) mmol/L Carbon Dioxide (22-30) mmol/L Anion Gap (10-20) BUN (9-20) mg/dL Creatinine (0.8-1.5) mg/dL Est GFR ( Amer) Est GFR (Non-Af Amer) POC Glucose (mg/dL) 134 H (65-110) mg/dL Random Glucose (75-110) mg/dL Calcium (8.6-10.4) mg/dl Phosphorus (2.5-4.5) mg/dL Magnesium (1.6-2.3) mg/dL Total Bilirubin (0.2-1.3) mg/dL AST (17-59) U/L ALT (21-72) U/L Alkaline Phosphatase (38-126) U/L Troponin I (0.00-0.120) ng/mL NT-Pro-B Natriuret Pep (0-900) pg/mL Total Protein (6.3-8.3) g/dL Albumin (3.5-5.0) g/dL Globulin (2.2-3.9) gm/dL Albumin/Globulin Ratio (1.0-2.1) Arterial Blood Potassium 5.0 3.9 (3.6-5.2) mmol/L Urine Color (YELLOW) Urine Clarity (Clear) Urine pH (5.0-8.0) Ur Specific [place] (1.003-1.030) Urine Protein (NEGATIVE) mg/dL Urine Glucose (UA) (Normal) mg/dL Urine Ketones (NEGATIVE) mg/dL Urine Blood (NEGATIVE) Urine Nitrate (NEGATIVE) Urine Bilirubin (NEGATIVE) Urine Urobilinogen (0.2-1.0) mg/dL Ur Leukocyte Esterase (Negative) Snehal/uL Urine WBC (Auto) (0-5) /hpf Urine RBC (Auto) (0-3) /hpf Ur Squamous Epith Cells (0-5) /hpf Amorphous Sediment (<OCC) /ul Urine Bacteria (<OCC) Random Vancomycin ug/mL 08/27/17 08/27/17 08/27/17 Range/Units 17:32 16:02 16:02 WBC (4.8-10.8) K/uL RBC (4.40-5.90) Mil/uL Hgb (12.0-18.0) g/dL Hct (35.0-51.0) % MCV (80.0-94.0) fL MCH (27.0-31.0) pg MCHC (33.0-37.0) g/dL RDW (11.5-14.5) % Plt Count (130-400) K/uL MPV (7.2-11.7) fL Neut % (Auto) (50.0-75.0) % Lymph % (Auto) (20.0-40.0) % Gem % (Auto) (0.0-10.0) % Eos % (Auto) (0.0-4.0) % Baso % (Auto) (0.0-2.0) % Neut # (Auto) (1.8-7.0) K/uL Lymph # (Auto) (1.0-4.3) K/uL Gem # (Auto) (0.0-0.8) K/uL Eos # (Auto) (0.0-0.7) K/uL Baso # (Auto) (0.0-0.2) K/uL PT 15.6 H (9.7-12.2) SECONDS INR 1.4 APTT 39 H (21-34) SECONDS Puncture Site pCO2 (35-45) mm/Hg pO2 (80-100) mm/Hg HCO3 (21-28) mmol/L ABG pH (7.35-7.45) ABG Total CO2 (22-28) mmol/L ABG O2 Saturation (95-98) % ABG Base Excess (-2.0-3.0) mmol/L Harpreet Test ABG Potassium (3.6-5.2) mmol/L A-a O2 Difference mm/Hg Respiratory Index Sodium (132-148) mmol/l Chloride (98-107) mmol/L Glucose (75-110) mg/dl Lactate (0.7-2.1) mmol/L Liter Flow Vent Mode Mechanical Rate FiO2 % Tidal Volume PEEP Crit Value Called To Crit Value Called By Crit Value Read Back Blood Gas Notified Time Potassium (3.6-5.2) mmol/L Carbon Dioxide (22-30) mmol/L Anion Gap (10-20) BUN (9-20) mg/dL Creatinine (0.8-1.5) mg/dL Est GFR ( Amer) Est GFR (Non-Af Amer) POC Glucose (mg/dL) 156 H (65-110) mg/dL Random Glucose (75-110) mg/dL Calcium (8.6-10.4) mg/dl Phosphorus (2.5-4.5) mg/dL Magnesium (1.6-2.3) mg/dL Total Bilirubin (0.2-1.3) mg/dL AST (17-59) U/L ALT (21-72) U/L Alkaline Phosphatase (38-126) U/L Troponin I (0.00-0.120) ng/mL NT-Pro-B Natriuret Pep (0-900) pg/mL Total Protein (6.3-8.3) g/dL Albumin (3.5-5.0) g/dL Globulin (2.2-3.9) gm/dL Albumin/Globulin Ratio (1.0-2.1) Arterial Blood Potassium (3.6-5.2) mmol/L Urine Color Yellow (YELLOW) Urine Clarity Hazy (Clear) Urine pH 5.0 (5.0-8.0) Ur Specific [place] 1.009 (1.003-1.030) Urine Protein Negative (NEGATIVE) mg/dL Urine Glucose (UA) 1+ H (Normal) mg/dL Urine Ketones Negative (NEGATIVE) mg/dL Urine Blood 1+ H (NEGATIVE) Urine Nitrate Negative (NEGATIVE) Urine Bilirubin Negative (NEGATIVE) Urine Urobilinogen Normal (0.2-1.0) mg/dL Ur Leukocyte Esterase Neg (Negative) Snehal/uL Urine WBC (Auto) 4 (0-5) /hpf Urine RBC (Auto) 6 H (0-3) /hpf Ur Squamous Epith Cells 3 (0-5) /hpf Amorphous Sediment Few H (<OCC) /ul Urine Bacteria Rare (<OCC) Random Vancomycin ug/mL 08/27/17 08/27/17 08/27/17 Range/Units 13:55 13:55 13:55 WBC 0.4 L* D (4.8-10.8) K/uL RBC 2.98 L (4.40-5.90) Mil/uL Hgb 9.0 L (12.0-18.0) g/dL Hct 26.3 L (35.0-51.0) % MCV 88.2 (80.0-94.0) fL MCH 30.3 (27.0-31.0) pg MCHC 34.4 (33.0-37.0) g/dL RDW 17.0 H (11.5-14.5) % Plt Count 46 L (130-400) K/uL MPV 8.0 (7.2-11.7) fL Neut % (Auto) 37.2 L (50.0-75.0) % Lymph % (Auto) 54.0 H (20.0-40.0) % Gem % (Auto) 6.5 (0.0-10.0) % Eos % (Auto) 1.5 (0.0-4.0) % Baso % (Auto) 0.8 (0.0-2.0) % Neut # (Auto) 0.2 L (1.8-7.0) K/uL Lymph # (Auto) 0.2 L (1.0-4.3) K/uL Gem # (Auto) 0.0 (0.0-0.8) K/uL Eos # (Auto) 0.0 (0.0-0.7) K/uL Baso # (Auto) 0.0 (0.0-0.2) K/uL PT (9.7-12.2) SECONDS INR APTT (21-34) SECONDS Puncture Site pCO2 (35-45) mm/Hg pO2 (80-100) mm/Hg HCO3 (21-28) mmol/L ABG pH (7.35-7.45) ABG Total CO2 (22-28) mmol/L ABG O2 Saturation (95-98) % ABG Base Excess (-2.0-3.0) mmol/L Harpreet Test ABG Potassium (3.6-5.2) mmol/L A-a O2 Difference mm/Hg Respiratory Index Sodium (132-148) mmol/l Chloride (98-107) mmol/L Glucose (75-110) mg/dl Lactate (0.7-2.1) mmol/L Liter Flow Vent Mode Mechanical Rate FiO2 % Tidal Volume PEEP Crit Value Called To Crit Value Called By Crit Value Read Back Blood Gas Notified Time Potassium (3.6-5.2) mmol/L Carbon Dioxide (22-30) mmol/L Anion Gap (10-20) BUN (9-20) mg/dL Creatinine (0.8-1.5) mg/dL Est GFR ( Amer) Est GFR (Non-Af Amer) POC Glucose (mg/dL) (65-110) mg/dL Random Glucose (75-110) mg/dL Calcium (8.6-10.4) mg/dl Phosphorus (2.5-4.5) mg/dL Magnesium (1.6-2.3) mg/dL Total Bilirubin (0.2-1.3) mg/dL AST (17-59) U/L ALT (21-72) U/L Alkaline Phosphatase (38-126) U/L Troponin I < 0.0120 (0.00-0.120) ng/mL NT-Pro-B Natriuret Pep (0-900) pg/mL Total Protein (6.3-8.3) g/dL Albumin (3.5-5.0) g/dL Globulin (2.2-3.9) gm/dL Albumin/Globulin Ratio (1.0-2.1) Arterial Blood Potassium (3.6-5.2) mmol/L Urine Color (YELLOW) Urine Clarity (Clear) Urine pH (5.0-8.0) Ur Specific [place] (1.003-1.030) Urine Protein (NEGATIVE) mg/dL Urine Glucose (UA) (Normal) mg/dL Urine Ketones (NEGATIVE) mg/dL Urine Blood (NEGATIVE) Urine Nitrate (NEGATIVE) Urine Bilirubin (NEGATIVE) Urine Urobilinogen (0.2-1.0) mg/dL Ur Leukocyte Esterase (Negative) Snehal/uL Urine WBC (Auto) (0-5) /hpf Urine RBC (Auto) (0-3) /hpf Ur Squamous Epith Cells (0-5) /hpf Amorphous Sediment (<OCC) /ul Urine Bacteria (<OCC) Random Vancomycin < 5.0 ug/mL 08/27/17 08/27/17 08/27/17 Range/Units 13:55 13:54 13:47 WBC (4.8-10.8) K/uL RBC (4.40-5.90) Mil/uL Hgb (12.0-18.0) g/dL Hct (35.0-51.0) % MCV (80.0-94.0) fL MCH (27.0-31.0) pg MCHC (33.0-37.0) g/dL RDW (11.5-14.5) % Plt Count (130-400) K/uL MPV (7.2-11.7) fL Neut % (Auto) (50.0-75.0) % Lymph % (Auto) (20.0-40.0) % Gem % (Auto) (0.0-10.0) % Eos % (Auto) (0.0-4.0) % Baso % (Auto) (0.0-2.0) % Neut # (Auto) (1.8-7.0) K/uL Lymph # (Auto) (1.0-4.3) K/uL Gem # (Auto) (0.0-0.8) K/uL Eos # (Auto) (0.0-0.7) K/uL Baso # (Auto) (0.0-0.2) K/uL PT (9.7-12.2) SECONDS INR APTT (21-34) SECONDS Puncture Site Lf pCO2 58 H (35-45) mm/Hg pO2 69 L (80-100) mm/Hg HCO3 16.1 L (21-28) mmol/L ABG pH 7.12 L* (7.35-7.45) ABG Total CO2 20.7 L (22-28) mmol/L ABG O2 Saturation 93.1 L (95-98) % ABG Base Excess -10.9 L (-2.0-3.0) mmol/L Harpreet Test Na ABG Potassium 4.1 (3.6-5.2) mmol/L A-a O2 Difference 572.0 mm/Hg Respiratory Index 8.3 Sodium 129 L 130.0 L (132-148) mmol/l Chloride 96 L 100.0 (98-107) mmol/L Glucose 158 H (75-110) mg/dl Lactate 1.3 (0.7-2.1) mmol/L Liter Flow Vent Mode Mechanical Rate 20 FiO2 100.0 % Tidal Volume 500 PEEP 5 Crit Value Called To Dr se hayes Crit Value Called By Enrique arguello [facility] Crit Value Read Back Y Blood Gas Notified Time 1400 Potassium 4.8 (3.6-5.2) mmol/L Carbon Dioxide 21 L (22-30) mmol/L Anion Gap 17 (10-20) BUN 26 H (9-20) mg/dL Creatinine 1.5 (0.8-1.5) mg/dL Est GFR ( Amer) 58 Est GFR (Non-Af Amer) 48 POC Glucose (mg/dL) 176 H (65-110) mg/dL Random Glucose 167 H (75-110) mg/dL Calcium 6.8 L (8.6-10.4) mg/dl Phosphorus 4.7 H (2.5-4.5) mg/dL Magnesium 2.1 (1.6-2.3) mg/dL Total Bilirubin 3.0 H (0.2-1.3) mg/dL AST 113 H (17-59) U/L ALT 99 H (21-72) U/L Alkaline Phosphatase 283 H (38-126) U/L Troponin I < 0.0120 (0.00-0.120) ng/mL NT-Pro-B Natriuret Pep 6450 H (0-900) pg/mL Total Protein 6.6 (6.3-8.3) g/dL Albumin 3.3 L (3.5-5.0) g/dL Globulin 3.3 (2.2-3.9) gm/dL Albumin/Globulin Ratio 1.0 (1.0-2.1) Arterial Blood Potassium 4.1 (3.6-5.2) mmol/L Urine Color (YELLOW) Urine Clarity (Clear) Urine pH (5.0-8.0) Ur Specific [place] (1.003-1.030) Urine Protein (NEGATIVE) mg/dL Urine Glucose (UA) (Normal) mg/dL Urine Ketones (NEGATIVE) mg/dL Urine Blood (NEGATIVE) Urine Nitrate (NEGATIVE) Urine Bilirubin (NEGATIVE) Urine Urobilinogen (0.2-1.0) mg/dL Ur Leukocyte Esterase (Negative) Snehal/uL Urine WBC (Auto) (0-5) /hpf Urine RBC (Auto) (0-3) /hpf Ur Squamous Epith Cells (0-5) /hpf Amorphous Sediment (<OCC) /ul Urine Bacteria (<OCC) Random Vancomycin ug/mL 08/27/17 Range/Units 10:12 WBC (4.8-10.8) K/uL RBC (4.40-5.90) Mil/uL Hgb (12.0-18.0) g/dL Hct (35.0-51.0) % MCV (80.0-94.0) fL MCH (27.0-31.0) pg MCHC (33.0-37.0) g/dL RDW (11.5-14.5) % Plt Count (130-400) K/uL MPV (7.2-11.7) fL Neut % (Auto) (50.0-75.0) % Lymph % (Auto) (20.0-40.0) % Gem % (Auto) (0.0-10.0) % Eos % (Auto) (0.0-4.0) % Baso % (Auto) (0.0-2.0) % Neut # (Auto) (1.8-7.0) K/uL Lymph # (Auto) (1.0-4.3) K/uL Gem # (Auto) (0.0-0.8) K/uL Eos # (Auto) (0.0-0.7) K/uL Baso # (Auto) (0.0-0.2) K/uL PT (9.7-12.2) SECONDS INR APTT (21-34) SECONDS Puncture Site Rba pCO2 26 L (35-45) mm/Hg pO2 129 H (80-100) mm/Hg HCO3 20.3 L (21-28) mmol/L ABG pH 7.42 (7.35-7.45) ABG Total CO2 17.7 L (22-28) mmol/L ABG O2 Saturation 99.1 H (95-98) % ABG Base Excess -6.0 L (-2.0-3.0) mmol/L Harpreet Test Na ABG Potassium 3.8 (3.6-5.2) mmol/L A-a O2 Difference 552.0 mm/Hg Respiratory Index 4.3 Sodium 127.0 L (132-148) mmol/l Chloride 99.0 (98-107) mmol/L Glucose 148 H (75-110) mg/dl Lactate 2.9 H (0.7-2.1) mmol/L Liter Flow 15.0 Vent Mode Mechanical Rate FiO2 100.0 % Tidal Volume PEEP Crit Value Called To Crit Value Called By Crit Value Read Back Blood Gas Notified Time Potassium (3.6-5.2) mmol/L Carbon Dioxide (22-30) mmol/L Anion Gap (10-20) BUN (9-20) mg/dL Creatinine (0.8-1.5) mg/dL Est GFR ( Amer) Est GFR (Non-Af Amer) POC Glucose (mg/dL) (65-110) mg/dL Random Glucose (75-110) mg/dL Calcium (8.6-10.4) mg/dl Phosphorus (2.5-4.5) mg/dL Magnesium (1.6-2.3) mg/dL Total Bilirubin (0.2-1.3) mg/dL AST (17-59) U/L ALT (21-72) U/L Alkaline Phosphatase (38-126) U/L Troponin I (0.00-0.120) ng/mL NT-Pro-B Natriuret Pep (0-900) pg/mL Total Protein (6.3-8.3) g/dL Albumin (3.5-5.0) g/dL Globulin (2.2-3.9) gm/dL Albumin/Globulin Ratio (1.0-2.1) Arterial Blood Potassium 3.8 (3.6-5.2) mmol/L Urine Color (YELLOW) Urine Clarity (Clear) Urine pH (5.0-8.0) Ur Specific [place] (1.003-1.030) Urine Protein (NEGATIVE) mg/dL Urine Glucose (UA) (Normal) mg/dL Urine Ketones (NEGATIVE) mg/dL Urine Blood (NEGATIVE) Urine Nitrate (NEGATIVE) Urine Bilirubin (NEGATIVE) Urine Urobilinogen (0.2-1.0) mg/dL Ur Leukocyte Esterase (Negative) Snehal/uL Urine WBC (Auto) (0-5) /hpf Urine RBC (Auto) (0-3) /hpf Ur Squamous Epith Cells (0-5) /hpf Amorphous Sediment (<OCC) /ul Urine Bacteria (<OCC) Random Vancomycin ug/mL Laboratory Results - last 24 hr 08/27/17 08/27/17 08/27/17 10:12 13:47 13:54 WBC RBC Hgb Hct MCV MCH MCHC RDW Plt Count MPV Neut % (Auto) Lymph % (Auto) Gem % (Auto) Eos % (Auto) Baso % (Auto) Neut # (Auto) Lymph # (Auto) Gem # (Auto) Eos # (Auto) Baso # (Auto) PT INR APTT Puncture Site Rba Lf pCO2 26 L 58 H pO2 129 H 69 L HCO3 20.3 L 16.1 L ABG pH 7.42 7.12 L* ABG Total CO2 17.7 L 20.7 L ABG O2 Saturation 99.1 H 93.1 L ABG Base Excess -6.0 L -10.9 L Harpreet Test Na Na ABG Potassium 3.8 4.1 A-a O2 Difference 552.0 572.0 Respiratory Index 4.3 8.3 Sodium 127.0 L 130.0 L Chloride 99.0 100.0 Glucose 148 H 158 H Lactate 2.9 H 1.3 Liter Flow 15.0 Vent Mode Mechanical Rate 20 FiO2 100.0 100.0 Tidal Volume 500 PEEP 5 Crit Value Called To Dr se hayes Crit Value Called By Enrique arguello [facility] Crit Value Read Back Y Blood Gas Notified Time 1400 Potassium Carbon Dioxide Anion Gap BUN Creatinine Est GFR ( Amer) Est GFR (Non-Af Amer) POC Glucose (mg/dL) 176 H Random Glucose Calcium Phosphorus Magnesium Total Bilirubin AST ALT Alkaline Phosphatase Troponin I NT-Pro-B Natriuret Pep Total Protein Albumin Globulin Albumin/Globulin Ratio Arterial Blood Potassium 3.8 4.1 Urine Color Urine Clarity Urine pH Ur Specific [place] Urine Protein Urine Glucose (UA) Urine Ketones Urine Blood Urine Nitrate Urine Bilirubin Urine Urobilinogen Ur Leukocyte Esterase Urine WBC (Auto) Urine RBC (Auto) Ur Squamous Epith Cells Amorphous Sediment Urine Bacteria Random Vancomycin 08/27/17 08/27/17 08/27/17 13:55 13:55 13:55 WBC 0.4 L* D RBC 2.98 L Hgb 9.0 L Hct 26.3 L MCV 88.2 MCH 30.3 MCHC 34.4 RDW 17.0 H Plt Count 46 L MPV 8.0 Neut % (Auto) 37.2 L Lymph % (Auto) 54.0 H Gem % (Auto) 6.5 Eos % (Auto) 1.5 Baso % (Auto) 0.8 Neut # (Auto) 0.2 L Lymph # (Auto) 0.2 L Gem # (Auto) 0.0 Eos # (Auto) 0.0 Baso # (Auto) 0.0 PT INR APTT Puncture Site pCO2 pO2 HCO3 ABG pH ABG Total CO2 ABG O2 Saturation ABG Base Excess Harpreet Test ABG Potassium A-a O2 Difference Respiratory Index Sodium 129 L Chloride 96 L Glucose Lactate Liter Flow Vent Mode Mechanical Rate FiO2 Tidal Volume PEEP Crit Value Called To Crit Value Called By Crit Value Read Back Blood Gas Notified Time Potassium 4.8 Carbon Dioxide 21 L Anion Gap 17 BUN 26 H Creatinine 1.5 Est GFR ( Amer) 58 Est GFR (Non-Af Amer) 48 POC Glucose (mg/dL) Random Glucose 167 H Calcium 6.8 L Phosphorus 4.7 H Magnesium 2.1 Total Bilirubin 3.0 H AST 113 H ALT 99 H Alkaline Phosphatase 283 H Troponin I < 0.0120 NT-Pro-B Natriuret Pep 6450 H Total Protein 6.6 Albumin 3.3 L Globulin 3.3 Albumin/Globulin Ratio 1.0 Arterial Blood Potassium Urine Color Urine Clarity Urine pH Ur Specific [place] Urine Protein Urine Glucose (UA) Urine Ketones Urine Blood Urine Nitrate Urine Bilirubin Urine Urobilinogen Ur Leukocyte Esterase Urine WBC (Auto) Urine RBC (Auto) Ur Squamous Epith Cells Amorphous Sediment Urine Bacteria Random Vancomycin < 5.0 08/27/17 08/27/17 08/27/17 13:55 16:02 16:02 WBC RBC Hgb Hct MCV MCH MCHC RDW Plt Count MPV Neut % (Auto) Lymph % (Auto) Gem % (Auto) Eos % (Auto) Baso % (Auto) Neut # (Auto) Lymph # (Auto) Gem # (Auto) Eos # (Auto) Baso # (Auto) PT 15.6 H INR 1.4 APTT 39 H Puncture Site pCO2 pO2 HCO3 ABG pH ABG Total CO2 ABG O2 Saturation ABG Base Excess Harpreet Test ABG Potassium A-a O2 Difference Respiratory Index Sodium Chloride Glucose Lactate Liter Flow Vent Mode Mechanical Rate FiO2 Tidal Volume PEEP Crit Value Called To Crit Value Called By Crit Value Read Back Blood Gas Notified Time Potassium Carbon Dioxide Anion Gap BUN Creatinine Est GFR ( Amer) Est GFR (Non-Af Amer) POC Glucose (mg/dL) Random Glucose Calcium Phosphorus Magnesium Total Bilirubin AST ALT Alkaline Phosphatase Troponin I < 0.0120 NT-Pro-B Natriuret Pep Total Protein Albumin Globulin Albumin/Globulin Ratio Arterial Blood Potassium Urine Color Yellow Urine Clarity Hazy Urine pH 5.0 Ur Specific [place] 1.009 Urine Protein Negative Urine Glucose (UA) 1+ H Urine Ketones Negative Urine Blood 1+ H Urine Nitrate Negative Urine Bilirubin Negative Urine Urobilinogen Normal Ur Leukocyte Esterase Neg Urine WBC (Auto) 4 Urine RBC (Auto) 6 H Ur Squamous Epith Cells 3 Amorphous Sediment Few H Urine Bacteria Rare Random Vancomycin 08/27/17 08/27/17 08/28/17 17:32 21:20 00:02 WBC RBC Hgb Hct MCV MCH MCHC RDW Plt Count MPV Neut % (Auto) Lymph % (Auto) Gem % (Auto) Eos % (Auto) Baso % (Auto) Neut # (Auto) Lymph # (Auto) Gem # (Auto) Eos # (Auto) Baso # (Auto) PT INR APTT Puncture Site Lr pCO2 26 L pO2 67 L HCO3 17.4 L ABG pH 7.35 ABG Total CO2 15.2 L ABG O2 Saturation 96.6 ABG Base Excess -9.5 L Harpreet Test Unable ABG Potassium 3.9 A-a O2 Difference 614.0 Respiratory Index 9.2 Sodium 135.0 Chloride 108.0 H Glucose 102 Lactate 1.8 Liter Flow Vent Mode Prvc Mechanical Rate 25 FiO2 100.0 Tidal Volume 500 PEEP 8 Crit Value Called To Crit Value Called By Crit Value Read Back Blood Gas Notified Time Potassium Carbon Dioxide Anion Gap BUN Creatinine Est GFR ( Amer) Est GFR (Non-Af Amer) POC Glucose (mg/dL) 156 H 134 H Random Glucose Calcium Phosphorus Magnesium Total Bilirubin AST ALT Alkaline Phosphatase Troponin I NT-Pro-B Natriuret Pep Total Protein Albumin Globulin Albumin/Globulin Ratio Arterial Blood Potassium 3.9 Urine Color Urine Clarity Urine pH Ur Specific [place] Urine Protein Urine Glucose (UA) Urine Ketones Urine Blood Urine Nitrate Urine Bilirubin Urine Urobilinogen Ur Leukocyte Esterase Urine WBC (Auto) Urine RBC (Auto) Ur Squamous Epith Cells Amorphous Sediment Urine Bacteria Random Vancomycin 08/28/17 08/28/17 08/28/17 05:21 06:10 06:25 WBC RBC Hgb Hct MCV MCH MCHC RDW Plt Count MPV Neut % (Auto) Lymph % (Auto) Gem % (Auto) Eos % (Auto) Baso % (Auto) Neut # (Auto) Lymph # (Auto) Gem # (Auto) Eos # (Auto) Baso # (Auto) PT INR APTT Puncture Site Rb pCO2 37 pO2 95 HCO3 17.7 L ABG pH 7.27 L ABG Total CO2 18.1 L ABG O2 Saturation 98.5 H ABG Base Excess -9.2 L Harpreet Test Na ABG Potassium 5.0 A-a O2 Difference 572.0 Respiratory Index 6.0 Sodium 129.0 L 131 L Chloride 101.0 99 Glucose 142 H Lactate 1.7 Liter Flow Vent Mode Prvc Mechanical Rate 25 FiO2 100.0 Tidal Volume 450 PEEP 12 Crit Value Called To Crit Value Called By Crit Value Read Back Blood Gas Notified Time Potassium 5.2 Carbon Dioxide 17 L Anion Gap 20 BUN 44 H Creatinine 2.3 H Est GFR ( Amer) 35 Est GFR (Non-Af Amer) 29 POC Glucose (mg/dL) 115 H Random Glucose 139 H Calcium 6.0 L* Phosphorus 5.7 H Magnesium 2.2 Total Bilirubin 4.1 H AST 403 H D ALT 234 H D Alkaline Phosphatase 225 H D Troponin I 0.0610 NT-Pro-B Natriuret Pep Total Protein 6.1 L Albumin 2.9 L Globulin 3.2 Albumin/Globulin Ratio 0.9 L Arterial Blood Potassium 5.0 Urine Color Urine Clarity Urine pH Ur Specific [place] Urine Protein Urine Glucose (UA) Urine Ketones Urine Blood Urine Nitrate Urine Bilirubin Urine Urobilinogen Ur Leukocyte Esterase Urine WBC (Auto) Urine RBC (Auto) Ur Squamous Epith Cells Amorphous Sediment Urine Bacteria Random Vancomycin 08/28/17 06:26 WBC 0.3 L* RBC 2.94 L Hgb 8.9 L Hct 25.9 L MCV 88.1 MCH 30.3 MCHC 34.3 RDW 16.9 H Plt Count 40 L MPV 8.2 Neut % (Auto) Lymph % (Auto) Gem % (Auto) Eos % (Auto) Baso % (Auto) Neut # (Auto) Lymph # (Auto) Gem # (Auto) Eos # (Auto) Baso # (Auto) PT INR APTT Puncture Site pCO2 pO2 HCO3 ABG pH ABG Total CO2 ABG O2 Saturation ABG Base Excess Harpreet Test ABG Potassium A-a O2 Difference Respiratory Index Sodium Chloride Glucose Lactate Liter Flow Vent Mode Mechanical Rate FiO2 Tidal Volume PEEP Crit Value Called To Crit Value Called By Crit Value Read Back Blood Gas Notified Time Potassium Carbon Dioxide Anion Gap BUN Creatinine Est GFR ( Amer) Est GFR (Non-Af Amer) POC Glucose (mg/dL) Random Glucose Calcium Phosphorus Magnesium Total Bilirubin AST ALT Alkaline Phosphatase Troponin I NT-Pro-B Natriuret Pep Total Protein Albumin Globulin Albumin/Globulin Ratio Arterial Blood Potassium Urine Color Urine Clarity Urine pH Ur Specific [place] Urine Protein Urine Glucose (UA) Urine Ketones Urine Blood Urine Nitrate Urine Bilirubin Urine Urobilinogen Ur Leukocyte Esterase Urine WBC (Auto) Urine RBC (Auto) Ur Squamous Epith Cells Amorphous Sediment Urine Bacteria Random Vancomycin EKG/Cardiology Studies: Cardiology / EKG Studies 08/27/17 09:06 EKG [ELECTROCARDIOGRAM] Stat Comment: Mode Of Transportation: Reason For Exam: tachy Isolation: Contact 08/27/17 09:11 EKG [ELECTROCARDIOGRAM] Stat Comment: Mode Of Transportation: Reason For Exam: tachy Isolation: Contact 08/27/17 10:15 ELECTROCARDIOGRAM Stat Comment: Mode Of Transportation: Reason For Exam: respiratory distress Isolation: Contact Fingerstick Blood Sugar Results: 115 Review of Systems - Review of Systems Systems not reviewed;Unavailable: Intubated Critical Care Progress Note - Extremities/Vascular Does the Patient have a Benjamin Catheter?: Yes - Nutrition Nutrition: Nutrition Category Date Time Status Heart Healthy Diet [DIET] Diets 08/18/17 Lunch Active Assessment/Plan - Assessment and Plan (Free Text) Assessment: 61 yo male with PMHx of metastatic prostate cancer to bones presented with abdominal pain. He was admitted to the ICU in hypoxic respiratory distress 1. Pneumonia-Left -IV Abx, atovaquone 1500mg, doxy 200mcg, diflucan 100mg, merrem 1g Q8, vanco 1g -intubated; lower FiO2 as tolerated -acetylcysteine -sputum cx AFB -CXR 2. Hypoxic respiratory distress 2/2 pneumonia -Intubated 100%/12/25/450 -sedated, precedex 200mcg, propofol-titrate as needed -solu-cortef, 100mg Q8 3. Hypotension -phenylephrine 40 mcg/min, titrate as needed -albumin 25% 25gm Q6 -500cc NS bolus, reeval 3. Pancytopenia -monitor labs -neutropenic precautions 4. Elevated liver enzymes -monitor labs -Abd U/S for elevated Tbili-4.1 -hold tylenol -lactulose 5. Hypocalcemia -albumin 25% 25g Q6 -given calcium gluconate 2000mg -monitor -replete as needed 6. Constipation -Senna -Colace -lactulose -monitor BM Ppx -protonix 40mg Q12 -SCD <Ilia Hayes M - Last Filed: 08/28/17 18:59> CCU Objective - Vital Signs / Intake & Output Vital Signs (Last 4 hours): Vital Signs Pulse Resp BP Pulse Ox 08/28/17 16:55 126 H 27 H 103/61 98 08/28/17 16:40 127 H 28 H 109/62 98 08/28/17 16:25 125 H 27 H 103/59 L 98 08/28/17 16:10 126 H 29 H 102/62 98 08/28/17 16:00 126 H 27 H 97 08/28/17 15:55 128 H 33 H 114/68 98 08/28/17 15:40 128 H 33 H 108/65 97 08/28/17 15:31 128 H 30 H 107/66 97 08/28/17 15:25 127 H 28 H 106/62 98 08/28/17 15:10 127 H 30 H 104/64 97 08/28/17 15:00 128 H 29 H 97 Intake and Output (Last 8hrs): Intake & Output 08/28/17 08/28/17 08/28/17 06:59 14:59 22:59 Intake Total 686.4 1389.3 273.3 Output Total 85 Balance 686.4 1304.3 273.3 Weight 150 lb Intake: IV 240 515.3 166.7 Intake, IV Amount 446.4 874.0 106.6 Right Forearm 375 50 Right Internal Jugular 340 390 42 Right Medial Port 106.4 109.0 14.6 Output: Urine 85 Urethral (Benjamin) 85 Other: # Bowel Movements 0 0 - Medications Active Medications: Active Medications Generic Name Dose Route Start Last Admin Trade Name Freq PRN Reason Stop Dose Admin Acetaminophen 650 mg 08/22/17 16:33 08/27/17 07:16 Tylenol 325mg Tab PO 650 mg Q8 PRN Administration Fever >100.4 F Acetylcysteine 4 ml 08/28/17 10:00 08/28/17 10:24 Acetylcysteine 20% PO 08/29/17 22:01 4 ml Q12 RNEAN Administration Albumin Human 12.5 gm 08/28/17 09:30 08/28/17 15:17 Albumin Human 25% (12.5 Gm/50 Ml) IV 08/29/17 03:31 12.5 gm Q6H RENAN Administration Albumin Human 12.5 gm 08/28/17 10:00 08/28/17 15:58 Albumin Human 25% (12.5 Gm/50 Ml) IV 08/29/17 04:01 12.5 gm Q6H RENAN Administration Albuterol/Ipratropium 3 ml 08/27/17 02:00 08/28/17 07:27 Duoneb 3 Mg/0.5 Mg (3 Ml) Ud INH Not Given RQ6 RENAN Atovaquone 1,500 mg 08/27/17 13:30 08/28/17 09:53 Mepron PO 1,500 mg DAILY RENAN Administration Protocol Docusate Sodium 100 mg 08/28/17 10:00 08/28/17 11:00 Colace PO Not Given DAILY RENAN Hydrocortisone Sodium Succinate 100 mg 08/27/17 14:00 08/28/17 14:36 Solu-Cortef IV 100 mg Q8 RENAN Administration Vancomycin/Sodium Chloride 1 gm in 200 mls @ 167 mls/hr 08/25/17 18:00 18:48 Vancomycin 1 Gm/Ns 200 Ml IVPB 08/30/17 18:01 167 mls/hr Q24H RENAN Administration Protocol Meropenem 50 mls @ 100 mls/hr 08/26/17 06:00 08/28/17 14:38 Merrem Iv 1 Gm Premix IVPB 100 mls/hr Q8 REANN Administration Protocol Fluconazole 50 mls @ 100 mls/hr 08/27/17 10:00 08/28/17 09:55 Diflucan Iv 100 Mg/50 Ml Ns IVPB 100 mls/hr DAILY RENAN Administration Protocol Propofol 1,000 mg in 100 mls @ 2.218 mls/hr 08/27/17 12:38 08/28/17 17:16 Diprivan IV 33 mcg/kg/min .Q24H PRN 14.639 mls/hr TITRATE PER MD ORDER Administration Protocol 5 MCG/KG/MIN Dexmedetomidine HCl 200 mcg/ 50 mls @ 3.69 mls/hr 08/27/17 13:06 08/27/17 21: 00 Sodium Chloride IV 0 mcg/kg/hr TITR PRN 0 mls/hr Sedation Titration Protocol 0.2 MCG/KG/HR Doxycycline Hyclate 100 mg/ 100 mls @ 100 mls/hr 08/27/17 18:00 08/28/17 17: 20 Sodium Chloride IVPB 100 mls/hr Q12H RENAN Administration Protocol Sodium Bicarbonate 75 meq/ 1,075 mls @ 75 mls/hr 08/28/17 09:30 08/28/17 10: 25 Sodium Chloride IV 75 mls/hr .[id number] RENAN Administration Phenylephrine HCl 30 mg/ 253 mls @ 20.23 mls/hr 08/28/17 12:30 08/28/17 16:30 Dextrose IV 70 mcg/min .[id number] PRN 35.41 mls/hr TITRATE PER MD ORDER Titration Protocol 40 MCG/MIN Insulin Aspart 0 unit 08/27/17 18:00 08/28/17 18:43 Novolog SC 1 u Q6 RENAN Administration Protocol Mupirocin 0.25 gm 08/23/17 18:00 08/28/17 18:48 Bactroban 2% Nasal JORDON 08/30/17 18:01 0.25 gm BID RENAN Administration Pantoprazole Sodium 40 mg 08/27/17 13:30 08/28/17 14:38 Protonix Inj IVP 40 mg Q12H RENAN Administration Senna/Docusate Sodium 1 tab 08/28/17 10:00 08/28/17 09:52 Senokot S 50 Mg-8.6 Mg GT 1 tab DAILY RENAN Administration - Patient Studies Lab Studies: Microbiology Studies 08/23/17 16:30 Blood Culture - Final Blood NO GROWTH AFTER 5 DAYS Gram Stain - Final TEST NOT PERFORMED 08/27/17 13:47 MRSA Culture (Admit) - Final Naris MRSA NOT DETECTED 08/27/17 16:02 Urine Culture - Final Urine,Catheterized No Growth (<1,000 CFU/ML) 08/23/17 19:18 Blood Culture - Preliminary Blood NO GROWTH AFTER 4 DAYS 08/27/17 13:47 Gram Stain - Final Sputum 08/22/17 17:09 Blood Culture - Final Blood-Venous NO GROWTH AFTER 5 DAYS Gram Stain - Final TEST NOT PERFORMED 08/22/17 17:09 Blood Culture - Final Blood-Venous NO GROWTH AFTER 5 DAYS Gram Stain - Final TEST NOT PERFORMED Lab Studies 08/28/17 08/28/17 08/28/17 Range/Units 18:08 11:26 06:26 WBC 0.3 L* (4.8-10.8) K/uL RBC 2.94 L (4.40-5.90) Mil/uL Hgb 8.9 L (12.0-18.0) g/dL Hct 25.9 L (35.0-51.0) % MCV 88.1 (80.0-94.0) fL MCH 30.3 (27.0-31.0) pg MCHC 34.3 (33.0-37.0) g/dL RDW 16.9 H (11.5-14.5) % Plt Count 40 L (130-400) K/uL MPV 8.2 (7.2-11.7) fL Neut % (Auto) 41.7 L (50.0-75.0) % Lymph % (Auto) 31.6 (20.0-40.0) % Gem % (Auto) 22.6 H (0.0-10.0) % Eos % (Auto) 2.9 (0.0-4.0) % Baso % (Auto) 1.2 (0.0-2.0) % Neut # (Auto) 0.1 L (1.8-7.0) K/uL Lymph # (Auto) 0.1 L (1.0-4.3) K/uL Gem # (Auto) 0.1 (0.0-0.8) K/uL Eos # (Auto) 0.0 (0.0-0.7) K/uL Baso # (Auto) 0.0 (0.0-0.2) K/uL Total Counted Cancelled Neutrophils % (Manual) Cancelled Band Neutrophils % Cancelled Lymphocytes % (Manual) Cancelled Reactive Lymphs % Cancelled Monocytes % (Manual) Cancelled Eosinophils % (Manual) Cancelled Basophils % (Manual) Cancelled Metamyelocytes % Cancelled Myelocytes % Cancelled Promyelocytes % Cancelled Blast Cells % Cancelled Plasma Cell % (Manual) Cancelled Nucleated RBC % Cancelled Hypersegmented Polys Cancelled Smudge Cells Cancelled Toxic Granulation Cancelled Dohle Bodies Cancelled Vonda Rods Cancelled Platelet Estimate Cancelled Plt Clumps, EDTA Cancelled Large Platelets Cancelled Giant Platelets Cancelled RBC Morphology Cancelled Polychromasia Cancelled Hypochromasia (manual) Cancelled Poikilocytosis (manual Cancelled Basophilic Stippling Cancelled Anisocytosis (manual) Cancelled Microcytosis (manual) Cancelled Macrocytosis (manual) Cancelled Spherocytes Cancelled Sickle Cells Cancelled Target Cells Cancelled Tear Drop Cells Cancelled Ovalocytes Cancelled Stomatocytes Cancelled Helmet Cells Cancelled Mac-[place] Bodies Cancelled Courtney Cells Cancelled Acanthocytes (Spur) Cancelled Rouleaux Cancelled Schistocytes Cancelled Puncture Site pCO2 (35-45) mm/Hg pO2 (80-100) mm/Hg HCO3 (21-28) mmol/L ABG pH (7.35-7.45) ABG Total CO2 (22-28) mmol/L ABG O2 Saturation (95-98) % ABG Base Excess (-2.0-3.0) mmol/L Harpreet Test ABG Potassium (3.6-5.2) mmol/L A-a O2 Difference mm/Hg Respiratory Index Sodium (132-148) mmol/l Chloride (98-107) mmol/L Glucose (75-110) mg/dl Lactate (0.7-2.1) mmol/L Vent Mode Mechanical Rate FiO2 % Tidal Volume PEEP Potassium (3.6-5.2) mmol/L Carbon Dioxide (22-30) mmol/L Anion Gap (10-20) BUN (9-20) mg/dL Creatinine (0.8-1.5) mg/dL Est GFR ( Amer) Est GFR (Non-Af Amer) POC Glucose (mg/dL) 152 H 146 H (65-110) mg/dL Random Glucose (75-110) mg/dL Calcium (8.6-10.4) mg/dl Phosphorus (2.5-4.5) mg/dL Magnesium (1.6-2.3) mg/dL Total Bilirubin (0.2-1.3) mg/dL AST (17-59) U/L ALT (21-72) U/L Alkaline Phosphatase (38-126) U/L Troponin I (0.00-0.120) ng/mL Total Protein (6.3-8.3) g/dL Albumin (3.5-5.0) g/dL Globulin (2.2-3.9) gm/dL Albumin/Globulin Ratio (1.0-2.1) Arterial Blood Potassium (3.6-5.2) mmol/L Ur L.pneumophila Ag (NEGATIVE) 08/28/17 08/28/17 08/28/17 Range/Units 06:25 06:10 05:21 WBC (4.8-10.8) K/uL RBC (4.40-5.90) Mil/uL Hgb (12.0-18.0) g/dL Hct (35.0-51.0) % MCV (80.0-94.0) fL MCH (27.0-31.0) pg MCHC (33.0-37.0) g/dL RDW (11.5-14.5) % Plt Count (130-400) K/uL MPV (7.2-11.7) fL Neut % (Auto) (50.0-75.0) % Lymph % (Auto) (20.0-40.0) % Gem % (Auto) (0.0-10.0) % Eos % (Auto) (0.0-4.0) % Baso % (Auto) (0.0-2.0) % Neut # (Auto) (1.8-7.0) K/uL Lymph # (Auto) (1.0-4.3) K/uL Gem # (Auto) (0.0-0.8) K/uL Eos # (Auto) (0.0-0.7) K/uL Baso # (Auto) (0.0-0.2) K/uL Total Counted Neutrophils % (Manual) Band Neutrophils % Lymphocytes % (Manual) Reactive Lymphs % Monocytes % (Manual) Eosinophils % (Manual) Basophils % (Manual) Metamyelocytes % Myelocytes % Promyelocytes % Blast Cells % Plasma Cell % (Manual) Nucleated RBC % Hypersegmented Polys Smudge Cells Toxic Granulation Dohle Bodies Vonda Rods Platelet Estimate Plt Clumps, EDTA Large Platelets Giant Platelets RBC Morphology Polychromasia Hypochromasia (manual) Poikilocytosis (manual Basophilic Stippling Anisocytosis (manual) Microcytosis (manual) Macrocytosis (manual) Spherocytes Sickle Cells Target Cells Tear Drop Cells Ovalocytes Stomatocytes Helmet Cells Mac-[place] Bodies Courtney Cells Acanthocytes (Spur) Rouleaux Schistocytes Puncture Site Rb pCO2 37 (35-45) mm/Hg pO2 95 (80-100) mm/Hg HCO3 17.7 L (21-28) mmol/L ABG pH 7.27 L (7.35-7.45) ABG Total CO2 18.1 L (22-28) mmol/L ABG O2 Saturation 98.5 H (95-98) % ABG Base Excess -9.2 L (-2.0-3.0) mmol/L Harpreet Test Na ABG Potassium 5.0 (3.6-5.2) mmol/L A-a O2 Difference 572.0 mm/Hg Respiratory Index 6.0 Sodium 131 L 129.0 L (132-148) mmol/l Chloride 99 101.0 (98-107) mmol/L Glucose 142 H (75-110) mg/dl Lactate 1.7 (0.7-2.1) mmol/L Vent Mode Prvc Mechanical Rate 25 FiO2 100.0 % Tidal Volume 450 PEEP 12 Potassium 5.2 (3.6-5.2) mmol/L Carbon Dioxide 17 L (22-30) mmol/L Anion Gap 20 (10-20) BUN 44 H (9-20) mg/dL Creatinine 2.3 H (0.8-1.5) mg/dL Est GFR ( Amer) 35 Est GFR (Non-Af Amer) 29 POC Glucose (mg/dL) 115 H (65-110) mg/dL Random Glucose 139 H (75-110) mg/dL Calcium 6.0 L* (8.6-10.4) mg/dl Phosphorus 5.7 H (2.5-4.5) mg/dL Magnesium 2.2 (1.6-2.3) mg/dL Total Bilirubin 4.1 H (0.2-1.3) mg/dL AST 403 H D (17-59) U/L ALT 234 H D (21-72) U/L Alkaline Phosphatase 225 H D (38-126) U/L Troponin I 0.0610 (0.00-0.120) ng/mL Total Protein 6.1 L (6.3-8.3) g/dL Albumin 2.9 L (3.5-5.0) g/dL Globulin 3.2 (2.2-3.9) gm/dL Albumin/Globulin Ratio 0.9 L (1.0-2.1) Arterial Blood Potassium 5.0 (3.6-5.2) mmol/L Ur L.pneumophila Ag (NEGATIVE) 08/28/17 08/27/17 08/27/17 Range/Units 00:02 21:20 17:32 WBC (4.8-10.8) K/uL RBC (4.40-5.90) Mil/uL Hgb (12.0-18.0) g/dL Hct (35.0-51.0) % MCV (80.0-94.0) fL MCH (27.0-31.0) pg MCHC (33.0-37.0) g/dL RDW (11.5-14.5) % Plt Count (130-400) K/uL MPV (7.2-11.7) fL Neut % (Auto) (50.0-75.0) % Lymph % (Auto) (20.0-40.0) % Gem % (Auto) (0.0-10.0) % Eos % (Auto) (0.0-4.0) % Baso % (Auto) (0.0-2.0) % Neut # (Auto) (1.8-7.0) K/uL Lymph # (Auto) (1.0-4.3) K/uL Gem # (Auto) (0.0-0.8) K/uL Eos # (Auto) (0.0-0.7) K/uL Baso # (Auto) (0.0-0.2) K/uL Total Counted Neutrophils % (Manual) Band Neutrophils % Lymphocytes % (Manual) Reactive Lymphs % Monocytes % (Manual) Eosinophils % (Manual) Basophils % (Manual) Metamyelocytes % Myelocytes % Promyelocytes % Blast Cells % Plasma Cell % (Manual) Nucleated RBC % Hypersegmented Polys Smudge Cells Toxic Granulation Dohle Bodies Vonda Rods Platelet Estimate Plt Clumps, EDTA Large Platelets Giant Platelets RBC Morphology Polychromasia Hypochromasia (manual) Poikilocytosis (manual Basophilic Stippling Anisocytosis (manual) Microcytosis (manual) Macrocytosis (manual) Spherocytes Sickle Cells Target Cells Tear Drop Cells Ovalocytes Stomatocytes Helmet Cells Mac-Sheridan Bodies Courtney Cells Acanthocytes (Spur) Rouleaux Schistocytes Puncture Site Lr pCO2 26 L (35-45) mm/Hg pO2 67 L (80-100) mm/Hg HCO3 17.4 L (21-28) mmol/L ABG pH 7.35 (7.35-7.45) ABG Total CO2 15.2 L (22-28) mmol/L ABG O2 Saturation 96.6 (95-98) % ABG Base Excess -9.5 L (-2.0-3.0) mmol/L Harpreet Test Unable ABG Potassium 3.9 (3.6-5.2) mmol/L A-a O2 Difference 614.0 mm/Hg Respiratory Index 9.2 Sodium 135.0 (132-148) mmol/l Chloride 108.0 H (98-107) mmol/L Glucose 102 (75-110) mg/dl Lactate 1.8 (0.7-2.1) mmol/L Vent Mode Prvc Mechanical Rate 25 FiO2 100.0 % Tidal Volume 500 PEEP 8 Potassium (3.6-5.2) mmol/L Carbon Dioxide (22-30) mmol/L Anion Gap (10-20) BUN (9-20) mg/dL Creatinine (0.8-1.5) mg/dL Est GFR ( Amer) Est GFR (Non-Af Amer) POC Glucose (mg/dL) 134 H 156 H (65-110) mg/dL Random Glucose (75-110) mg/dL Calcium (8.6-10.4) mg/dl Phosphorus (2.5-4.5) mg/dL Magnesium (1.6-2.3) mg/dL Total Bilirubin (0.2-1.3) mg/dL AST (17-59) U/L ALT (21-72) U/L Alkaline Phosphatase (38-126) U/L Troponin I (0.00-0.120) ng/mL Total Protein (6.3-8.3) g/dL Albumin (3.5-5.0) g/dL Globulin (2.2-3.9) gm/dL Albumin/Globulin Ratio (1.0-2.1) Arterial Blood Potassium 3.9 (3.6-5.2) mmol/L Ur L.pneumophila Ag (NEGATIVE) 08/27/17 Range/Units 16:02 WBC (4.8-10.8) K/uL RBC (4.40-5.90) Mil/uL Hgb (12.0-18.0) g/dL Hct (35.0-51.0) % MCV (80.0-94.0) fL MCH (27.0-31.0) pg MCHC (33.0-37.0) g/dL RDW (11.5-14.5) % Plt Count (130-400) K/uL MPV (7.2-11.7) fL Neut % (Auto) (50.0-75.0) % Lymph % (Auto) (20.0-40.0) % Gem % (Auto) (0.0-10.0) % Eos % (Auto) (0.0-4.0) % Baso % (Auto) (0.0-2.0) % Neut # (Auto) (1.8-7.0) K/uL Lymph # (Auto) (1.0-4.3) K/uL Gem # (Auto) (0.0-0.8) K/uL Eos # (Auto) (0.0-0.7) K/uL Baso # (Auto) (0.0-0.2) K/uL Total Counted Neutrophils % (Manual) Band Neutrophils % Lymphocytes % (Manual) Reactive Lymphs % Monocytes % (Manual) Eosinophils % (Manual) Basophils % (Manual) Metamyelocytes % Myelocytes % Promyelocytes % Blast Cells % Plasma Cell % (Manual) Nucleated RBC % Hypersegmented Polys Smudge Cells Toxic Granulation Dohle Bodies Vonda Rods Platelet Estimate Plt Clumps, EDTA Large Platelets Giant Platelets RBC Morphology Polychromasia Hypochromasia (manual) Poikilocytosis (manual Basophilic Stippling Anisocytosis (manual) Microcytosis (manual) Macrocytosis (manual) Spherocytes Sickle Cells Target Cells Tear Drop Cells Ovalocytes Stomatocytes Helmet Cells Mac-Sheridan Bodies Courtney Cells Acanthocytes (Spur) Rouleaux Schistocytes Puncture Site pCO2 (35-45) mm/Hg pO2 (80-100) mm/Hg HCO3 (21-28) mmol/L ABG pH (7.35-7.45) ABG Total CO2 (22-28) mmol/L ABG O2 Saturation (95-98) % ABG Base Excess (-2.0-3.0) mmol/L Harpreet Test ABG Potassium (3.6-5.2) mmol/L A-a O2 Difference mm/Hg Respiratory Index Sodium (132-148) mmol/l Chloride (98-107) mmol/L Glucose (75-110) mg/dl Lactate (0.7-2.1) mmol/L Vent Mode Mechanical Rate FiO2 % Tidal Volume PEEP Potassium (3.6-5.2) mmol/L Carbon Dioxide (22-30) mmol/L Anion Gap (10-20) BUN (9-20) mg/dL Creatinine (0.8-1.5) mg/dL Est GFR ( Amer) Est GFR (Non-Af Amer) POC Glucose (mg/dL) (65-110) mg/dL Random Glucose (75-110) mg/dL Calcium (8.6-10.4) mg/dl Phosphorus (2.5-4.5) mg/dL Magnesium (1.6-2.3) mg/dL Total Bilirubin (0.2-1.3) mg/dL AST (17-59) U/L ALT (21-72) U/L Alkaline Phosphatase (38-126) U/L Troponin I (0.00-0.120) ng/mL Total Protein (6.3-8.3) g/dL Albumin (3.5-5.0) g/dL Globulin (2.2-3.9) gm/dL Albumin/Globulin Ratio (1.0-2.1) Arterial Blood Potassium (3.6-5.2) mmol/L Ur L.pneumophila Ag Positive H (NEGATIVE) Laboratory Results - last 24 hr 08/27/17 08/27/17 08/27/17 16:02 17:32 21:20 WBC RBC Hgb Hct MCV MCH MCHC RDW Plt Count MPV Neut % (Auto) Lymph % (Auto) Gem % (Auto) Eos % (Auto) Baso % (Auto) Neut # (Auto) Lymph # (Auto) Gem # (Auto) Eos # (Auto) Baso # (Auto) Total Counted Neutrophils % (Manual) Band Neutrophils % Lymphocytes % (Manual) Reactive Lymphs % Monocytes % (Manual) Eosinophils % (Manual) Basophils % (Manual) Metamyelocytes % Myelocytes % Promyelocytes % Blast Cells % Plasma Cell % (Manual) Nucleated RBC % Hypersegmented Polys Smudge Cells Toxic Granulation Dohle Bodies Vonda Rods Platelet Estimate Plt Clumps, EDTA Large Platelets Giant Platelets RBC Morphology Polychromasia Hypochromasia (manual) Poikilocytosis (manual Basophilic Stippling Anisocytosis (manual) Microcytosis (manual) Macrocytosis (manual) Spherocytes Sickle Cells Target Cells Tear Drop Cells Ovalocytes Stomatocytes Helmet Cells Mac-Sheridan Bodies [place] Cells Acanthocytes (Spur) Rouleaux Schistocytes Puncture Site Lr pCO2 26 L pO2 67 L HCO3 17.4 L ABG pH 7.35 ABG Total CO2 15.2 L ABG O2 Saturation 96.6 ABG Base Excess -9.5 L Harpreet Test Unable ABG Potassium 3.9 A-a O2 Difference 614.0 Respiratory Index 9.2 Sodium 135.0 Chloride 108.0 H Glucose 102 Lactate 1.8 Vent Mode Prvc Mechanical Rate 25 FiO2 100.0 Tidal Volume 500 PEEP 8 Potassium Carbon Dioxide Anion Gap BUN Creatinine Est GFR ( Amer) Est GFR (Non-Af Amer) POC Glucose (mg/dL) 156 H Random Glucose Calcium Phosphorus Magnesium Total Bilirubin AST ALT Alkaline Phosphatase Troponin I Total Protein Albumin Globulin Albumin/Globulin Ratio Arterial Blood Potassium 3.9 Ur L.pneumophila Ag Positive H 08/28/17 08/28/17 08/28/17 00:02 05:21 06:10 WBC RBC Hgb Hct MCV MCH MCHC RDW Plt Count MPV Neut % (Auto) Lymph % (Auto) Gem % (Auto) Eos % (Auto) Baso % (Auto) Neut # (Auto) Lymph # (Auto) Gem # (Auto) Eos # (Auto) Baso # (Auto) Total Counted Neutrophils % (Manual) Band Neutrophils % Lymphocytes % (Manual) Reactive Lymphs % Monocytes % (Manual) Eosinophils % (Manual) Basophils % (Manual) Metamyelocytes % Myelocytes % Promyelocytes % Blast Cells % Plasma Cell % (Manual) Nucleated RBC % Hypersegmented Polys Smudge Cells Toxic Granulation Dohle Bodies Vonda Rods Platelet Estimate Plt Clumps, EDTA Large Platelets Giant Platelets RBC Morphology Polychromasia Hypochromasia (manual) Poikilocytosis (manual Basophilic Stippling Anisocytosis (manual) Microcytosis (manual) Macrocytosis (manual) Spherocytes Sickle Cells Target Cells Tear Drop Cells Ovalocytes Stomatocytes Helmet Cells [place] Bodies [place] Cells Acanthocytes (Spur) Rouleaux Schistocytes Puncture Site Rb pCO2 37 pO2 95 HCO3 17.7 L ABG pH 7.27 L ABG Total CO2 18.1 L ABG O2 Saturation 98.5 H ABG Base Excess -9.2 L Harpreet Test Na ABG Potassium 5.0 A-a O2 Difference 572.0 Respiratory Index 6.0 Sodium 129.0 L Chloride 101.0 Glucose 142 H Lactate 1.7 Vent Mode Prvc Mechanical Rate 25 FiO2 100.0 Tidal Volume 450 PEEP 12 Potassium Carbon Dioxide Anion Gap BUN Creatinine Est GFR ( Amer) Est GFR (Non-Af Amer) POC Glucose (mg/dL) 134 H 115 H Random Glucose Calcium Phosphorus Magnesium Total Bilirubin AST ALT Alkaline Phosphatase Troponin I Total Protein Albumin Globulin Albumin/Globulin Ratio Arterial Blood Potassium 5.0 Ur L.pneumophila Ag 08/28/17 08/28/17 08/28/17 06:25 06:26 11:26 WBC 0.3 L* RBC 2.94 L Hgb 8.9 L Hct 25.9 L MCV 88.1 MCH 30.3 MCHC 34.3 RDW 16.9 H Plt Count 40 L MPV 8.2 Neut % (Auto) 41.7 L Lymph % (Auto) 31.6 Gem % (Auto) 22.6 H Eos % (Auto) 2.9 Baso % (Auto) 1.2 Neut # (Auto) 0.1 L Lymph # (Auto) 0.1 L Gem # (Auto) 0.1 Eos # (Auto) 0.0 Baso # (Auto) 0.0 Total Counted Cancelled Neutrophils % (Manual) Cancelled Band Neutrophils % Cancelled Lymphocytes % (Manual) Cancelled Reactive Lymphs % Cancelled Monocytes % (Manual) Cancelled Eosinophils % (Manual) Cancelled Basophils % (Manual) Cancelled Metamyelocytes % Cancelled Myelocytes % Cancelled Promyelocytes % Cancelled Blast Cells % Cancelled Plasma Cell % (Manual) Cancelled Nucleated RBC % Cancelled Hypersegmented Polys Cancelled Smudge Cells Cancelled Toxic Granulation Cancelled Dohle Bodies Cancelled Vonda Rods Cancelled Platelet Estimate Cancelled Plt Clumps, EDTA Cancelled Large Platelets Cancelled Giant Platelets Cancelled RBC Morphology Cancelled Polychromasia Cancelled Hypochromasia (manual) Cancelled Poikilocytosis (manual Cancelled Basophilic Stippling Cancelled Anisocytosis (manual) Cancelled Microcytosis (manual) Cancelled Macrocytosis (manual) Cancelled Spherocytes Cancelled Sickle Cells Cancelled Target Cells Cancelled Tear Drop Cells Cancelled Ovalocytes Cancelled Stomatocytes Cancelled Helmet Cells Cancelled Mac-Sheridan Bodies Cancelled Courtney Cells Cancelled Acanthocytes (Spur) Cancelled Rouleaux Cancelled Schistocytes Cancelled Puncture Site pCO2 pO2 HCO3 ABG pH ABG Total CO2 ABG O2 Saturation ABG Base Excess Harpreet Test ABG Potassium A-a O2 Difference Respiratory Index Sodium 131 L Chloride 99 Glucose Lactate Vent Mode Mechanical Rate FiO2 Tidal Volume PEEP Potassium 5.2 Carbon Dioxide 17 L Anion Gap 20 BUN 44 H Creatinine 2.3 H Est GFR ( Amer) 35 Est GFR (Non-Af Amer) 29 POC Glucose (mg/dL) 146 H Random Glucose 139 H Calcium 6.0 L* Phosphorus 5.7 H Magnesium 2.2 Total Bilirubin 4.1 H AST 403 H D ALT 234 H D Alkaline Phosphatase 225 H D Troponin I 0.0610 Total Protein 6.1 L Albumin 2.9 L Globulin 3.2 Albumin/Globulin Ratio 0.9 L Arterial Blood Potassium Ur L.pneumophila Ag 08/28/17 18:08 WBC RBC Hgb Hct MCV MCH MCHC RDW Plt Count MPV Neut % (Auto) Lymph % (Auto) Gem % (Auto) Eos % (Auto) Baso % (Auto) Neut # (Auto) Lymph # (Auto) Gem # (Auto) Eos # (Auto) Baso # (Auto) Total Counted Neutrophils % (Manual) Band Neutrophils % Lymphocytes % (Manual) Reactive Lymphs % Monocytes % (Manual) Eosinophils % (Manual) Basophils % (Manual) Metamyelocytes % Myelocytes % Promyelocytes % Blast Cells % Plasma Cell % (Manual) Nucleated RBC % Hypersegmented Polys Smudge Cells Toxic Granulation Dohle Bodies Vonda Rods Platelet Estimate Plt Clumps, EDTA Large Platelets Giant Platelets RBC Morphology Polychromasia Hypochromasia (manual) Poikilocytosis (manual Basophilic Stippling Anisocytosis (manual) Microcytosis (manual) Macrocytosis (manual) Spherocytes Sickle Cells Target Cells Tear Drop Cells Ovalocytes Stomatocytes Helmet Cells Mac-Sheridan Bodies Courtney Cells Acanthocytes (Spur) Rouleaux Schistocytes Puncture Site pCO2 pO2 HCO3 ABG pH ABG Total CO2 ABG O2 Saturation ABG Base Excess Harpreet Test ABG Potassium A-a O2 Difference Respiratory Index Sodium Chloride Glucose Lactate Vent Mode Mechanical Rate FiO2 Tidal Volume PEEP Potassium Carbon Dioxide Anion Gap BUN Creatinine Est GFR ( Amer) Est GFR (Non-Af Amer) POC Glucose (mg/dL) 152 H Random Glucose Calcium Phosphorus Magnesium Total Bilirubin AST ALT Alkaline Phosphatase Troponin I Total Protein Albumin Globulin Albumin/Globulin Ratio Arterial Blood Potassium Ur L.pneumophila Ag Critical Care Progress Note - Nutrition Nutrition: Nutrition Category Date Time Status Heart Healthy Diet [DIET] Diets 08/18/17 Lunch Active Assessment/Plan - Assessment and Plan (Free Text) Assessment: 61 y/o male with pmx of prostate ca with mets to lung being treated with XRT and oral chemo. Patient was being treated with mucomyst inhalation and develoepd hypoxic respiratory failure with significant sputum production. ICU evaluated patent at bedside on 6th floor. Patient was being treated with IVF and IV antibiotics. -Acute hypoxic respiratory failure: suspect 2nd large VQ mismatch, bipap started. Continue ventilation to keep spoe >92 and pH b/w 7.35-7.45, continue bronchodilaotrs and IV steroids, peep increased to 10 -Septic shock: continue IVF at 75 ml/kg and continue pressros to keep MAP >65, lactic resolved -Chronic systolic heart failure: check echo, bnp >2000, echo pending -HUSSAIN: monitor urine output, goasl of U/O more than 0.5 ml/kg/hr, avoid nephrotoxic drugs -anemia: 2nd anemia of chronic disease, check fecal occult blood, iron profile, folate/b12 -neutropenia: 2nd oral chemo, continue neupogen -GI: (+)residual, no BMs, start at 15 ml/hr -thrombocytopenia: monitor no active bleeding -Transaminitis: suspect 2nd shock, avoid hepatotoxic drugs -check and replace electrolytes -skin: supplemental MVI/vitamin C + turn q2 hrs -dvt ppx: scds (thrombocytopenia) -PUD ppx protonix -Goals of care discussed with family - Date & Time Date: 08/28/17 Time: 18:58
[2017-08-28] MEDS: Docusate-Senna 50 mg-8.6 mg Tab GT SCH (09:52)
[2017-08-28] MEDS: Atovaquone 750 mg/5 ml Susp UD PO SCH (09:53)
[2017-08-28] MEDS: Mupirocin 2% Ointment (NASAL) NAS SCH ×2 (09:53→18:48)
[2017-08-28] MEDS: Fluconazole IV 100mg/50 ml NS 50 ML IVPB SCH (09:55)
[2017-08-28 09:58] LABS: BASO % 1.2 % (0.0-2.0); EOS % 2.9 % (0.0-4.0); LYMPH # 0.1 K/uL (1.0-4.3); LYMPH % 31.6 % (20.0-40.0); MONO # 0.1 K/uL (0.0-0.8); MONO % 22.6 % (0.0-10.0); NEUT # 0.1 K/uL (1.8-7.0); NEUT % 41.7 % (50.0-75.0); NRBC % 4.1 % (0.0-2.0)
[2017-08-28] MEDS: Albumin Human 25% (12.5 gm/50 ml) IV SCH ×6 (10:24→21:41)
[2017-08-28] MEDS: Acetylcysteine 20% Inhal Soln (4ml) PO SCH ×2 (10:24→21:40)
--- NOTE | 2017-08-28 11:00 | US ---
HISTORY: Evaluate for cholecystitis COMPARISON: None. TECHNIQUE: Grayscale imaging was performed. FINDINGS: LIVER: Measures 14.7 cm. There is diffuse increased echogenicity of the liver parenchyma. No mass. No intrahepatic bile duct dilatation. GALLBLADDER: There are no gallstones, wall thickening or pericholecystic fluid. The sonographic Ferraro's sign is negative. COMMON BILE DUCT: Measures 2.6 mm. No stones. No dilatation. PANCREAS: Unremarkable as visualized. No mass. No ductal dilatation. RIGHT KIDNEY: Measures 10.5cm. Normal echogenicity. No calculus, mass, or hydronephrosis. LEFT KIDNEY: Measures 10.5cm. Normal echogenicity. No calculus, mass, or hydronephrosis. SPLEEN: Normal in size and contour. No mass. AORTA: No aneurysmal dilatation. IVC: Unremarkable. OTHER FINDINGS: None. IMPRESSION: No cholelithiasis or biliary dilatation. Diffuse increased echogenicity in the liver may reflect hepatic steatosis however parenchymal infectious/ inflammatory etiologies cannot be entirely excluded. Clinical and laboratory correlation is advised.
[2017-08-28] MEDS: Phenylephrine 30 MG in Dextrose 5% In Water 250 ML IV PRN ×2 (13:30→21:55)
[2017-08-28] MEDS: Vancomycin 1 gm/NS 200 ml 1 GM/200 ML BAG IVPB SCH (18:48)
[2017-08-28] MEDS ORDERED: Moxifloxacin IV 400mg/250ml NS 400 MG/250 ML BAG IVPB ONE (19:05)
--- NOTE | 2017-08-28 19:26 | CP.PCM.PN ---
Subjective - Date & Time of Evaluation Date of Evaluation: 08/28/17 Time of Evaluation: 11:20 - Subjective Subjective: clinically same Objective - Vital Signs/Intake and Output Vital Signs (last 24 hours): Temp Pulse Resp BP Pulse Ox 99.2 F 126 H 27 H 103/61 98 08/28/17 09:58 08/28/17 16:55 08/28/17 16:55 08/28/17 16:55 08/28/17 16:55 Intake and Output: 08/28/17 08/29/17 18:59 06:59 Intake Total 1662.6 Output Total 85 Balance 1577.6 - Medications Medications: Current Medications Acetaminophen (Tylenol 325mg Tab) 650 mg PO Q8 PRN PRN Reason: Fever >100.4 F Last Admin: 08/27/17 07:16 Dose: 650 mg Acetylcysteine (Acetylcysteine 20%) 4 ml PO Q12 RENAN Stop: 08/29/17 22:01 Last Admin: 08/28/17 10:24 Dose: 4 ml Albumin Human (Albumin Human 25% (12.5 Gm/50 Ml)) 12.5 gm IV Q6H RENAN Stop: 08/29/17 03:31 Last Admin: 08/28/17 15:17 Dose: 12.5 gm Albumin Human (Albumin Human 25% (12.5 Gm/50 Ml)) 12.5 gm IV Q6H RENAN Stop: 08/29/17 04:01 Last Admin: 08/28/17 15:58 Dose: 12.5 gm Albuterol/Ipratropium (Duoneb 3 Mg/0.5 Mg (3 Ml) Ud) 3 ml INH RQ6 RENAN Last Admin: 08/28/17 07:27 Dose: Not Given Atovaquone (Mepron) 1,500 mg PO DAILY RENAN PRN Reason: Protocol Last Admin: 08/28/17 09:53 Dose: 1,500 mg Docusate Sodium (Colace) 100 mg PO DAILY [facility] Last Admin: 08/28/17 11:00 Dose: Not Given Hydrocortisone Sodium Succinate (Solu-Cortef) 100 mg IV Q8 RENAN Last Admin: 08/28/17 14:36 Dose: 100 mg Vancomycin/Sodium Chloride (Vancomycin 1 Gm/Ns 200 Ml) 1 gm in 200 mls @ 167 mls/hr IVPB Q24H RENAN PRN Reason: Protocol Stop: 08/30/17 18:01 Last Admin: 08/28/17 18:48 Dose: 167 mls/hr Meropenem (Merrem Iv 1 Gm Premix) 50 mls @ 100 mls/hr IVPB Q8 RENAN PRN Reason: Protocol Last Admin: 08/28/17 14:38 Dose: 100 mls/hr Fluconazole (Diflucan Iv 100 Mg/50 Ml Ns) 50 mls @ 100 mls/hr IVPB DAILY RENAN PRN Reason: Protocol Last Admin: 08/28/17 09:55 Dose: 100 mls/hr Propofol (Diprivan) 1,000 mg in 100 mls @ 2.218 mls/hr IV .Q24H PRN; Protocol; 5 MCG/KG/MIN PRN Reason: TITRATE PER MD ORDER Last Admin: 08/28/17 17:16 Dose: 33 mcg/kg/min, 14.639 mls/hr Dexmedetomidine HCl 200 mcg/ (Sodium Chloride) 50 mls @ 3.69 mls/hr IV TITR PRN ; Protocol; 0.2 MCG/KG/HR PRN Reason: Sedation Last Titration: 08/27/17 21:00 Dose: 0 mcg/kg/hr, 0 mls/hr Doxycycline Hyclate 100 mg/ (Sodium Chloride) 100 mls @ 100 mls/hr IVPB Q12H RENAN PRN Reason: Protocol Last Admin: 08/28/17 17:20 Dose: 100 mls/hr Sodium Bicarbonate 75 meq/ (Sodium Chloride) 1,075 mls @ 75 mls/hr IV .[id number] RENAN Last Admin: 08/28/17 10:25 Dose: 75 mls/hr Phenylephrine HCl 30 mg/ (Dextrose) 253 mls @ 20.23 mls/hr IV .[id number] PRN; Protocol; 40 MCG/MIN PRN Reason: TITRATE PER MD ORDER Last Titration: 08/28/17 16:30 Dose: 70 mcg/min, 35.41 mls/hr Moxifloxacin HCl (Avelox Iv 400mg/250ml Ns) 400 mg in 250 mls @ 167 mls/hr IVPB ONCE ONE PRN Reason: Protocol Stop: 08/28/17 20:34 Insulin Aspart (Novolog) 0 unit SC Q6 RENAN PRN Reason: Protocol Last Admin: 08/28/17 18:43 Dose: 1 u Moxifloxacin HCl (Avelox) 400 mg PO ONCE ONE Stop: 08/28/17 19:31 Mupirocin (Bactroban 2% Nasal) 0.25 gm JORDON BID RENAN Stop: 08/30/17 18:01 Last Admin: 08/28/17 18:48 Dose: 0.25 gm Pantoprazole Sodium (Protonix Inj) 40 mg IVP Q12H RENAN Last Admin: 08/28/17 14:38 Dose: 40 mg Senna/Docusate Sodium (Senokot S 50 Mg-8.6 Mg) 1 tab GT DAILY RENAN Last Admin: 08/28/17 09:52 Dose: 1 tab - Labs Labs: 08/28/17 06:26 08/28/17 06:25 PT 15.6 SECONDS (9.7-12.2) H 08/27/17 16:02 INR 1.4 08/27/17 16:02 APTT 39 SECONDS (21-34) H 08/27/17 16:02 - Constitutional Appears: Well - Head Exam Head Exam: ATRAUMATIC, NORMAL INSPECTION, NORMOCEPHALIC - Eye Exam Eye Exam: EOMI, Normal appearance, PERRL Pupil Exam: NORMAL ACCOMODATION, PERRL - ENT Exam ENT Exam: Mucous Membranes Moist, Normal Exam - Neck Exam Neck Exam: Full ROM, Normal Inspection. absent: Lymphadenopathy - Respiratory Exam Respiratory Exam: Decreased Breath Sounds - Cardiovascular Exam Cardiovascular Exam: REGULAR RHYTHM, +S1, +S2 - GI/Abdominal Exam GI & Abdominal Exam: Soft, Diminished Bowel Sounds - Rectal Exam Rectal Exam: Deferred Assessment and Plan (1) Acute respiratory failure Status: Acute (2) Anemia Status: Acute (3) Chronic pain Status: Acute (4) Esophagitis Status: Acute (5) Gastritis Status: Acute (6) Pancytopenia Status: Acute (7) Abdominal pain Status: Acute (8) Chest discomfort Status: Acute (9) Constipation Status: Acute (10) Intractable abdominal pain Status: Acute (11) Metastatic malignant neoplasm to prostate Status: Acute (12) Neutropenia Status: Acute - Assessment and Plan (Free Text) Plan: Continue Precedex IV propofol IV Diflucan IV Merrem Discussed with the family family member that Discussed with the prognosis IV fluids Follow-up with Dr. shaw- Follow-up with ID Follow-up with the critical care
--- NOTE | 2017-08-28 20:22 | CP.PCM.PN ---
Subjective - Date & Time of Evaluation Date of Evaluation: 08/28/17 Time of Evaluation: 20:22 - Subjective Subjective: CHIEF COMPLAINTS TODAY : -ICU BED 5 events noted INTUBATED,HYPOTENSIVE REMAINS PANCYTOPENIC LETHARGIC.JAUNDICED +VE LEGIONELLA URINARY AG +VE MRSA NARES ROS.ON OBSERVATION HEENT : N. Resp : ON VENTILATOR , NO wheezing ,pleuritic CP ,or hemoptysis Cardio : No anginal CP, PND, orthopnea, palpitation GI : NO n/v ,diarrhea or GI bleeding . DRAFTER ELECTRICAL : No headache, vertigo, focal deficit. Musculoskel : No joint swelling , Derm : No rash Psych : Normal affect. Ext : No swelling ,calf pain PE. Pt. is LETHARGIC in no distress.ON VENTILATOR V.S As noted in the chart Head ,ear nose,throat and eyes : Normal. Neck : Supple with normal carotids. Lungs: RHONCHI LT SIDE Heart : S1 & S2 REGULAR . No murmur. Abd : SOFT, NON TENDER , with normal bowel sounds. Neuro : Moves all ext. with no localized deficit. Ext : No edema with intact pulses.Non tender calves Derm : No rashes or decubitus ulcer. LABS/RADIOLOGY: reviewed wbc 0.3. pLATELETS 40 CREATININE 2.3/bun 44 VANCO RANDOM 26.1 LFTS TOTAL BILI 4.1, ast 403, alt 234, ALKALINE PHOSPHATASE 225. BLOOD CULTURES 08/23/17 -VE X TO DATE URINE CULTURES 08/27/17 -VE GROWTH CXR 08/28/17WORSENING DENSE CONSOLIDATION LEFT UPPER LOBE. RT IJV CXR 08/25/17 NEW LT PERIHILAR INFILTRATE ASSESSMENT NEUTROPENIC FEVERS NEW PNEUMONIA - lEGIONELLA ANTIGEN POSITIVE ( ? LEGIONELLA PNEUMOPHILLA ) METASTATIC CA PROSTRATE. HX OF ESOPHAGITIS VI S/P EGD ABDOMINAL PAIN-IMPROVING ABNORMAL LIVER FUNCTION TESTS-SHOCK LIVER VS CHOLESTASIS VS LEGIONELLOSIS INCREASING AZOTEMIA /PLAN : ON MULTIPLE ANTIBIOTICS HOLD iv VANCO FOR TODAY. CHECK VANCO RANDOM IN A.M. AND ADJUST DOSE 08/23/17 .DECREASE iv MERREM 1 G EVERY 12 HOURLY. 08/26/17 .CONTINUE DOXYCYCLINE 100 MG EVERY 12 HOURLY 08/27/17 .CONTINUE FLUCONAZOLE 100 MG EVERY 24 HOURLY. 08/26/17 CONTINUE ATOVAQUONE 1500 MG od DAILY. 08/27/17 CONTINUE iv STEROIDS ORDERED BY INTENSIVISTS.100 MG EVERY 8 HOURLY NEUTROPENIC PRECAUTIONS. PULMONARY TOILET.F/U SPUTUM FOR LEGINELLA CULTURE. F/U LFTS /RENAL FUNCTIONS CLOSELY. CASE DISCUSSED W DR Willie CARLTON [employer] WORKER/RESIDENT AND STAFF Objective - Vital Signs/Intake and Output Vital Signs (last 24 hours): Temp Pulse Resp BP Pulse Ox 99.2 F 127 H 28 H 96/50 L 98 08/28/17 09:58 08/28/17 19:25 08/28/17 19:25 08/28/17 19:25 08/28/17 19:25 Intake and Output: 08/28/17 08/29/17 18:59 06:59 Intake Total 2479.4 139.6 Output Total 130 10 Balance 2349.4 129.6 - Medications Medications: Current Medications Acetaminophen (Tylenol 325mg Tab) 650 mg PO Q8 PRN PRN Reason: Fever >100.4 F Last Admin: 08/27/17 07:16 Dose: 650 mg Acetylcysteine (Acetylcysteine 20%) 4 ml PO Q12 RENAN Stop: 08/29/17 22:01 Last Admin: 08/28/17 10:24 Dose: 4 ml Albumin Human (Albumin Human 25% (12.5 Gm/50 Ml)) 12.5 gm IV Q6H RENAN Stop: 08/29/17 03:31 Last Admin: 08/28/17 15:17 Dose: 12.5 gm Albumin Human (Albumin Human 25% (12.5 Gm/50 Ml)) 12.5 gm IV Q6H RENAN Stop: 08/29/17 04:01 Last Admin: 08/28/17 15:58 Dose: 12.5 gm Albuterol/Ipratropium (Duoneb 3 Mg/0.5 Mg (3 Ml) Ud) 3 ml INH RQ6 RENAN Last Admin: 08/28/17 07:27 Dose: Not Given Atovaquone (Mepron) 1,500 mg PO DAILY RENAN PRN Reason: Protocol Last Admin: 08/28/17 09:53 Dose: 1,500 mg Docusate Sodium (Colace) 100 mg PO DAILY [facility] Last Admin: 08/28/17 11:00 Dose: Not Given Hydrocortisone Sodium Succinate (Solu-Cortef) 100 mg IV Q8 [facility] Last Admin: 08/28/17 14:36 Dose: 100 mg Fluconazole (Diflucan Iv 100 Mg/50 Ml Ns) 50 mls @ 100 mls/hr IVPB DAILY RENAN PRN Reason: Protocol Last Admin: 08/28/17 09:55 Dose: 100 mls/hr Propofol (Diprivan) 1,000 mg in 100 mls @ 2.218 mls/hr IV .Q24H PRN; Protocol; 5 MCG/KG/MIN PRN Reason: TITRATE PER MD ORDER Last Admin: 08/28/17 17:16 Dose: 33 mcg/kg/min, 14.639 mls/hr Dexmedetomidine HCl 200 mcg/ (Sodium Chloride) 50 mls @ 3.69 mls/hr IV TITR PRN ; Protocol; 0.2 MCG/KG/HR PRN Reason: Sedation Last Titration: 08/27/17 21:00 Dose: 0 mcg/kg/hr, 0 mls/hr Doxycycline Hyclate 100 mg/ (Sodium Chloride) 100 mls @ 100 mls/hr IVPB Q12H RENAN PRN Reason: Protocol Last Admin: 08/28/17 17:20 Dose: 100 mls/hr Sodium Bicarbonate 75 meq/ (Sodium Chloride) 1,075 mls @ 75 mls/hr IV .[id number] RENAN Last Admin: 08/28/17 10:25 Dose: 75 mls/hr Phenylephrine HCl 30 mg/ (Dextrose) 253 mls @ 20.23 mls/hr IV .[id number] PRN; Protocol; 40 MCG/MIN PRN Reason: TITRATE PER MD ORDER Last Titration: 08/28/17 16:30 Dose: 70 mcg/min, 35.41 mls/hr Meropenem 1 gm/ Sodium (Chloride) 100 mls @ 100 mls/hr IVPB Q12H RENAN PRN Reason: Protocol Insulin Aspart (Novolog) 0 unit SC Q6 RENAN PRN Reason: Protocol Last Admin: 08/28/17 18:43 Dose: 1 u Mupirocin (Bactroban 2% Nasal) 0.25 gm JORDON BID [facility] Stop: 08/30/17 18:01 Last Admin: 08/28/17 18:48 Dose: 0.25 gm Pantoprazole Sodium (Protonix Inj) 40 mg IVP Q12H [facility] Last Admin: 08/28/17 14:38 Dose: 40 mg Senna/Docusate Sodium (Senokot S 50 Mg-8.6 Mg) 1 tab GT DAILY RENAN Last Admin: 08/28/17 09:52 Dose: 1 tab - Labs Labs: 08/28/17 06:26 08/28/17 06:25 PT 15.6 SECONDS (9.7-12.2) H 08/27/17 16:02 INR 1.4 08/27/17 16:02 APTT 39 SECONDS (21-34) H 08/27/17 16:02 Assessment and Plan (1) Pancytopenia Status: Acute (2) Abdominal pain Status: Acute (3) Esophagitis Status: Acute (4) Metastatic malignant neoplasm to prostate Status: Acute
[2017-08-28] MEDS ORDERED: Meropenem 1 GM in Sodium Chloride 0.9% 100 ML IVPB SCH (21:00)
[2017-08-28 21:50] LABS: ABG ALLEN TEST UNABLE; ARTERIAL BLOOD GAS O2 SAT 99.2 % (95-98); ARTERIAL BLOOD GAS PCO2 42 mm/Hg (35-45); ARTERIAL BLOOD GAS PH 7.22 (7.35-7.45); ARTERIAL BLOOD GAS PO2 103 mm/Hg (80-100); ARTERIAL BLOOD GAS TCO2 18.5 mmol/L (22-28)
[2017-08-29] MEDS: (Novolog) Insulin Aspart, Recombinant 100 u/ml 10 ml vial SC SCH ×4 (00:03→17:44)
[2017-08-29] MEDS ORDERED: Sodium Chloride 0.9% 500 ML IV ONE (00:34)
[2017-08-29] MEDS: Meropenem 1 GM in Sodium Chloride 0.9% 100 ML IVPB SCH ×2 (02:33→14:05)
[2017-08-29] MEDS: Phenylephrine 30 MG in Dextrose 5% In Water 250 ML IV PRN ×4 (03:15→22:06)
[2017-08-29] MEDS: Albumin Human 25% (12.5 gm/50 ml) IV SCH ×2 (03:30→04:00)
[2017-08-29 05:35] LABS: ABG ALLEN TEST POS; ARTERIAL BLOOD GAS HCO3 15.4 mmol/L (21-28); ARTERIAL BLOOD GAS O2 SAT 99.3 % (95-98); ARTERIAL BLOOD GAS PCO2 44 mm/Hg (35-45); ARTERIAL BLOOD GAS PH 7.17 (7.35-7.45); ARTERIAL BLOOD GAS PO2 122 mm/Hg (80-100); ARTERIAL BLOOD GAS TCO2 17.4 mmol/L (22-28)
[2017-08-29 06:38] LABS: HEMOGLOBIN 6.7 g/dL (12.0-18.0); MEAN CELL VOLUME 89.7 fL (80.0-94.0); MEAN CORPUSCULAR HEMOGLOBIN 31.1 pg (27.0-31.0); MEAN CORPUSCULAR HGB CONC 34.6 g/dL (33.0-37.0); RBC 2.15 Mil/uL (4.40-5.90); RED CELL DISTRIBUTION WIDTH 17.7 % (11.5-14.5)
[2017-08-29 06:44] LABS: WHITE BLOOD COUNT 0.3 K/uL (4.8-10.8)
[2017-08-29 07:08] LABS: CALCIUM 5.4 mg/dl (8.6-10.4)
[2017-08-29] MEDS: Propofol 10 mg/ml 1,000 MG/100 ML VIAL IV PRN ×3 (07:21→21:29)
--- NOTE | 2017-08-29 07:56 | CP.CCUPN ---
CCU Subjective - Physician Review Subjective (Free Text): significant secretions 08/29/17 07:56 Critical Care Time Spent (in minutes): 35 CCU Objective - Vital Signs / Intake & Output Vital Signs (Last 4 hours): Vital Signs Pulse Resp BP Pulse Ox 08/29/17 07:10 108 H 25 H 96/55 L 97 08/29/17 07:00 110 H 28 H 97 08/29/17 06:55 110 H 25 H 98/60 L 97 08/29/17 06:40 109 H 24 96/59 L 98 08/29/17 06:25 112 H 25 H 102/60 97 08/29/17 06:10 111 H 26 H 101/59 L 97 08/29/17 06:00 112 H 26 H 97 08/29/17 05:55 112 H 26 H 97/60 L 98 08/29/17 05:40 113 H 26 H 94/57 L 98 08/29/17 05:25 114 H 26 H 99/56 L 97 08/29/17 05:10 115 H 27 H 99/55 L 97 08/29/17 05:00 117 H 29 H 96 08/29/17 04:55 119 H 29 H 112/61 95 08/29/17 04:49 121 H 32 H 133/72 95 08/29/17 04:25 115 H 28 H 93/52 L 96 08/29/17 04:10 118 H 32 H 101/59 L 95 08/29/17 04:00 120 H 29 H 95 Intake and Output (Last 8hrs): Intake & Output 08/28/17 08/29/17 08/29/17 22:59 06:59 14:59 Intake Total 2152.9 2804.4 263.3 Output Total 85 80 10 Balance 2067.9 2724.4 253.3 Weight 154 lb Intake: IV 293.7 453 Intake, IV Amount 1724.2 2136.4 233.3 Right Forearm 360.8 106.4 13.3 Right Internal Jugular 295 330 45 Right Medial Port 358.4 600 75 Right Wrist 600 1100 100 right forearm y port 110 Tube Feeding 135 215 30 Output: Urine 85 80 10 Urethral (Benjamin) 85 80 10 Other: # Bowel Movements 0 0 0 - Physical Exam Head: Positive for: Atraumatic, Normocephalic Respiratory/Chest: Positive for: Decreased Breath Sounds Cardiovascular: Positive for: Regular Rate and Rhythm. Negative for: Murmurs Abdomen: Positive for: Distention, Normal Bowel Sounds Upper Extremity: Positive for: Normal Inspection. Negative for: Cyanosis, Edema Lower Extremity: Positive for: Normal Inspection. Negative for: Edema Neurological: Negative for: GCS=15 Skin: Positive for: Normal Color - Medications Active Medications: Active Medications Generic Name Dose Route Start Last Admin Trade Name Freq PRN Reason Stop Dose Admin Acetaminophen 650 mg 08/22/17 16:33 08/27/17 07:16 Tylenol 325mg Tab PO 650 mg Q8 PRN Administration Fever >100.4 F Acetylcysteine 4 ml 08/28/17 10:00 08/28/17 21:40 Acetylcysteine 20% PO 08/29/17 22:01 4 ml Q12 RENAN Administration Albuterol/Ipratropium 3 ml 08/29/17 08:00 Duoneb 3 Mg/0.5 Mg (3 Ml) Ud INH RQ4 RENAN Atovaquone 1,500 mg 08/27/17 13:30 08/28/17 09:53 Mepron PO 1,500 mg DAILY RENAN Administration Protocol Docusate Sodium 100 mg 08/28/17 10:00 08/28/17 11:00 Colace PO Not Given DAILY RENAN Hydrocortisone Sodium Succinate 100 mg 08/27/17 14:00 08/29/17 05:20 Solu-Cortef IV 100 mg Q8 RENAN Administration Fluconazole 50 mls @ 100 mls/hr 08/27/17 10:00 08/28/17 09:55 Diflucan Iv 100 Mg/50 Ml Ns IVPB 100 mls/hr DAILY RENAN Administration Protocol Propofol 1,000 mg in 100 mls @ 2.218 mls/hr 08/27/17 12:38 08/29/17 07:21 Diprivan IV 30 mcg/kg/min .Q24H PRN 13.308 mls/hr TITRATE PER MD ORDER Administration Protocol 5 MCG/KG/MIN Dexmedetomidine HCl 200 mcg/ 50 mls @ 3.69 mls/hr 08/27/17 13:06 08/27/17 21: 00 Sodium Chloride IV 0 mcg/kg/hr TITR PRN 0 mls/hr Sedation Titration Protocol 0.2 MCG/KG/HR Doxycycline Hyclate 100 mg/ 100 mls @ 100 mls/hr 08/27/17 18:00 08/29/17 05: 20 Sodium Chloride IVPB 100 mls/hr Q12H RENAN Administration Protocol Sodium Bicarbonate 75 meq/ 1,075 mls @ 75 mls/hr 08/28/17 09:30 08/29/17 03: 20 Sodium Chloride IV 75 mls/hr .[id number] RENAN Administration Phenylephrine HCl 30 mg/ 253 mls @ 20.23 mls/hr 08/28/17 12:30 08/29/17 03:15 Dextrose IV 90 mcg/min .[id number] PRN 45.54 mls/hr TITRATE PER MD ORDER Administration Protocol 40 MCG/MIN Meropenem 1 gm/ Sodium 100 mls @ 100 mls/hr 08/29/17 03:00 08/29/17 02:33 Chloride IVPB 100 mls/hr Q12H RENAN Administration Protocol Calcium Gluconate 2,000 mg/ 270 mls @ 135 mls/hr 08/29/17 08:00 Sodium Chloride IVPB 08/29/17 09:59 ONCE ONE Insulin Aspart 0 unit 08/27/17 18:00 08/29/17 05:28 Novolog SC Not Given Q6 RENAN Protocol Mupirocin 0.25 gm 08/23/17 18:00 08/28/17 18:48 Bactroban 2% Nasal JORDON 08/30/17 18:01 0.25 gm BID RENAN Administration Pantoprazole Sodium 40 mg 08/27/17 13:30 08/29/17 02:33 Protonix Inj IVP 40 mg Q12H RENAN Administration Senna/Docusate Sodium 1 tab 08/28/17 10:00 08/28/17 09:52 Senokot S 50 Mg-8.6 Mg GT 1 tab DAILY RENAN Administration - Patient Studies Lab Studies: Microbiology Studies 08/23/17 19:18 Blood Culture - Final Blood NO GROWTH AFTER 5 DAYS Gram Stain - Final TEST NOT PERFORMED 08/23/17 16:30 Blood Culture - Final Blood NO GROWTH AFTER 5 DAYS Gram Stain - Final TEST NOT PERFORMED 08/27/17 13:47 MRSA Culture (Admit) - Final Naris MRSA NOT DETECTED 08/27/17 16:02 Urine Culture - Final Urine,Catheterized No Growth (<1,000 CFU/ML) Lab Studies 08/29/17 08/29/17 08/29/17 Range/Units 06:31 06:31 06:31 WBC 0.3 L* (4.8-10.8) K/uL RBC 2.15 L (4.40-5.90) Mil/uL Hgb 6.7 L D (12.0-18.0) g/dL Hct 19.3 L (35.0-51.0) % MCV 89.7 (80.0-94.0) fL MCH 31.1 H (27.0-31.0) pg MCHC 34.6 (33.0-37.0) g/dL RDW 17.7 H (11.5-14.5) % Plt Count 22 L* D (130-400) K/uL MPV 8.0 (7.2-11.7) fL Neut % (Auto) (50.0-75.0) % Lymph % (Auto) (20.0-40.0) % Webb % (Auto) (0.0-10.0) % Eos % (Auto) (0.0-4.0) % Baso % (Auto) (0.0-2.0) % Neut # (Auto) (1.8-7.0) K/uL Lymph # (Auto) (1.0-4.3) K/uL Webb # (Auto) (0.0-0.8) K/uL Eos # (Auto) (0.0-0.7) K/uL Baso # (Auto) (0.0-0.2) K/uL Total Counted Neutrophils % (Manual) Band Neutrophils % Lymphocytes % (Manual) Reactive Lymphs % Monocytes % (Manual) Eosinophils % (Manual) Basophils % (Manual) Metamyelocytes % Myelocytes % Promyelocytes % Blast Cells % Plasma Cell % (Manual) Nucleated RBC % Hypersegmented Polys Smudge Cells Toxic Granulation Dohle Bodies Vonda Rods Platelet Estimate Plt Clumps, EDTA Large Platelets Giant Platelets RBC Morphology Polychromasia Hypochromasia (manual) Poikilocytosis (manual Basophilic Stippling Anisocytosis (manual) Microcytosis (manual) Macrocytosis (manual) Spherocytes Sickle Cells Target Cells Tear Drop Cells Ovalocytes Stomatocytes Helmet Cells Mac-Solis Bodies [place] Cells Acanthocytes (Spur) Rouleaux Schistocytes Puncture Site pCO2 (35-45) mm/Hg pO2 (80-100) mm/Hg HCO3 (21-28) mmol/L ABG pH (7.35-7.45) ABG Total CO2 (22-28) mmol/L ABG O2 Saturation (95-98) % ABG Base Excess (-2.0-3.0) mmol/L Harpreet Test ABG Potassium (3.6-5.2) mmol/L A-a O2 Difference mm/Hg Respiratory Index Sodium 135 (132-148) mmol/l Chloride 101 (98-107) mmol/L Glucose (75-110) mg/dl Lactate (0.7-2.1) mmol/L Vent Mode Mechanical Rate FiO2 % Tidal Volume PEEP Crit Value Called To Crit Value Called By Crit Value Read Back Blood Gas Notified Time Potassium 4.9 (3.6-5.2) mmol/L Carbon Dioxide 16 L (22-30) mmol/L Anion Gap 23 H (10-20) BUN 57 H (9-20) mg/dL Creatinine 3.0 H (0.8-1.5) mg/dL Est GFR ( Amer) 26 Est GFR (Non-Af Amer) 21 POC Glucose (mg/dL) (65-110) mg/dL Random Glucose 176 H (75-110) mg/dL Calcium 5.4 L* (8.6-10.4) mg/dl Phosphorus 5.6 H (2.5-4.5) mg/dL Magnesium 2.2 (1.6-2.3) mg/dL Total Bilirubin 5.2 H (0.2-1.3) mg/dL AST 145 H D (17-59) U/L ALT 154 H D (21-72) U/L Alkaline Phosphatase 157 H D (38-126) U/L Total Protein 6.0 L (6.3-8.3) g/dL Albumin 3.0 L (3.5-5.0) g/dL Globulin 2.9 (2.2-3.9) gm/dL Albumin/Globulin Ratio 1.0 (1.0-2.1) Arterial Blood Potassium (3.6-5.2) mmol/L Random Vancomycin 18.3 ug/mL Ur L.pneumophila Ag (NEGATIVE) 08/29/17 08/29/1718 Range/Units 05:23 05:23 23:34 WBC (4.8-10.8) K/uL RBC (4.40-5.90) Mil/uL Hgb (12.0-18.0) g/dL Hct (35.0-51.0) % MCV (80.0-94.0) fL MCH (27.0-31.0) pg MCHC (33.0-37.0) g/dL RDW (11.5-14.5) % Plt Count (130-400) K/uL MPV (7.2-11.7) fL Neut % (Auto) (50.0-75.0) % Lymph % (Auto) (20.0-40.0) % Webb % (Auto) (0.0-10.0) % Eos % (Auto) (0.0-4.0) % Baso % (Auto) (0.0-2.0) % Neut # (Auto) (1.8-7.0) K/uL Lymph # (Auto) (1.0-4.3) K/uL Webb # (Auto) (0.0-0.8) K/uL Eos # (Auto) (0.0-0.7) K/uL Baso # (Auto) (0.0-0.2) K/uL Total Counted Neutrophils % (Manual) Band Neutrophils % Lymphocytes % (Manual) Reactive Lymphs % Monocytes % (Manual) Eosinophils % (Manual) Basophils % (Manual) Metamyelocytes % Myelocytes % Promyelocytes % Blast Cells % Plasma Cell % (Manual) Nucleated RBC % Hypersegmented Polys Smudge Cells Toxic Granulation Dohle Bodies Vonda Rods Platelet Estimate Plt Clumps, EDTA Large Platelets Giant Platelets RBC Morphology Polychromasia Hypochromasia (manual) Poikilocytosis (manual Basophilic Stippling Anisocytosis (manual) Microcytosis (manual) Macrocytosis (manual) Spherocytes Sickle Cells Target Cells Tear Drop Cells Ovalocytes Stomatocytes Helmet Cells Mac-Solis Bodies Courtney Cells Acanthocytes (Spur) Rouleaux Schistocytes Puncture Site Lr pCO2 44 (35-45) mm/Hg pO2 122 H (80-100) mm/Hg HCO3 15.4 L (21-28) mmol/L ABG pH 7.17 L* (7.35-7.45) ABG Total CO2 17.4 L (22-28) mmol/L ABG O2 Saturation 99.3 H (95-98) % ABG Base Excess -12.2 L (-2.0-3.0) mmol/L Harpreet Test Pos ABG Potassium 4.7 (3.6-5.2) mmol/L A-a O2 Difference 322.0 mm/Hg Respiratory Index 2.6 Sodium 132.0 (132-148) mmol/l Chloride 103.0 (98-107) mmol/L Glucose 188 H (75-110) mg/dl Lactate 1.0 (0.7-2.1) mmol/L Vent Mode Prvc Mechanical Rate 25 FiO2 70.0 % Tidal Volume 450 PEEP 10 Crit Value Called To Allen rn Crit Value Called By Estrellita engine lathe tender Crit Value Read Back Y Blood Gas Notified Time 534 Potassium (3.6-5.2) mmol/L Carbon Dioxide (22-30) mmol/L Anion Gap (10-20) BUN (9-20) mg/dL Creatinine (0.8-1.5) mg/dL Est GFR ( Amer) Est GFR (Non-Af Amer) POC Glucose (mg/dL) 102 171 H (65-110) mg/dL Random Glucose (75-110) mg/dL Calcium (8.6-10.4) mg/dl Phosphorus (2.5-4.5) mg/dL Magnesium (1.6-2.3) mg/dL Total Bilirubin (0.2-1.3) mg/dL AST (17-59) U/L ALT (21-72) U/L Alkaline Phosphatase (38-126) U/L Total Protein (6.3-8.3) g/dL Albumin (3.5-5.0) g/dL Globulin (2.2-3.9) gm/dL Albumin/Globulin Ratio (1.0-2.1) Arterial Blood Potassium 4.7 (3.6-5.2) mmol/L Random Vancomycin ug/mL Ur L.pneumophila Ag (NEGATIVE) 08/28/17 08/28/17 08/28/17 Range/Units 21:47 19:34 18:08 WBC (4.8-10.8) K/uL RBC (4.40-5.90) Mil/uL Hgb (12.0-18.0) g/dL Hct (35.0-51.0) % MCV (80.0-94.0) fL MCH (27.0-31.0) pg MCHC (33.0-37.0) g/dL RDW (11.5-14.5) % Plt Count (130-400) K/uL MPV (7.2-11.7) fL Neut % (Auto) (50.0-75.0) % Lymph % (Auto) (20.0-40.0) % Webb % (Auto) (0.0-10.0) % Eos % (Auto) (0.0-4.0) % Baso % (Auto) (0.0-2.0) % Neut # (Auto) (1.8-7.0) K/uL Lymph # (Auto) (1.0-4.3) K/uL Webb # (Auto) (0.0-0.8) K/uL Eos # (Auto) (0.0-0.7) K/uL Baso # (Auto) (0.0-0.2) K/uL Total Counted Neutrophils % (Manual) Band Neutrophils % Lymphocytes % (Manual) Reactive Lymphs % Monocytes % (Manual) Eosinophils % (Manual) Basophils % (Manual) Metamyelocytes % Myelocytes % Promyelocytes % Blast Cells % Plasma Cell % (Manual) Nucleated RBC % Hypersegmented Polys Smudge Cells Toxic Granulation Dohle Bodies Vonda Rods Platelet Estimate Plt Clumps, EDTA Large Platelets Giant Platelets RBC Morphology Polychromasia Hypochromasia (manual) Poikilocytosis (manual Basophilic Stippling Anisocytosis (manual) Microcytosis (manual) Macrocytosis (manual) Spherocytes Sickle Cells Target Cells Tear Drop Cells Ovalocytes Stomatocytes Helmet Cells Mac-Solis Bodies [place] Cells Acanthocytes (Spur) Rouleaux Schistocytes Puncture Site Lr pCO2 42 (35-45) mm/Hg pO2 103 H (80-100) mm/Hg HCO3 17.0 L (21-28) mmol/L ABG pH 7.22 L (7.35-7.45) ABG Total CO2 18.5 L (22-28) mmol/L ABG O2 Saturation 99.2 H (95-98) % ABG Base Excess -10.1 L (-2.0-3.0) mmol/L Harpreet Test Unable ABG Potassium 5.3 H (3.6-5.2) mmol/L A-a O2 Difference 415.0 mm/Hg Respiratory Index 4.0 Sodium 132.0 (132-148) mmol/l Chloride 103.0 (98-107) mmol/L Glucose 163 H (75-110) mg/dl Lactate 1.2 (0.7-2.1) mmol/L Vent Mode Prvc Mechanical Rate 25 FiO2 80.0 % Tidal Volume 450 PEEP 10 Crit Value Called To Crit Value Called By Crit Value Read Back Blood Gas Notified Time Potassium (3.6-5.2) mmol/L Carbon Dioxide (22-30) mmol/L Anion Gap (10-20) BUN (9-20) mg/dL Creatinine (0.8-1.5) mg/dL Est GFR ( Amer) Est GFR (Non-Af Amer) POC Glucose (mg/dL) 152 H (65-110) mg/dL Random Glucose (75-110) mg/dL Calcium (8.6-10.4) mg/dl Phosphorus (2.5-4.5) mg/dL Magnesium (1.6-2.3) mg/dL Total Bilirubin (0.2-1.3) mg/dL AST (17-59) U/L ALT (21-72) U/L Alkaline Phosphatase (38-126) U/L Total Protein (6.3-8.3) g/dL Albumin (3.5-5.0) g/dL Globulin (2.2-3.9) gm/dL Albumin/Globulin Ratio (1.0-2.1) Arterial Blood Potassium 5.3 H (3.6-5.2) mmol/L Random Vancomycin 26.1 ug/mL Ur L.pneumophila Ag (NEGATIVE) 08/28/17 08/28/17 08/27/17 Range/Units 11:26 06:26 16:02 WBC (4.8-10.8) K/uL RBC (4.40-5.90) Mil/uL Hgb (12.0-18.0) g/dL Hct (35.0-51.0) % MCV (80.0-94.0) fL MCH (27.0-31.0) pg MCHC (33.0-37.0) g/dL RDW (11.5-14.5) % Plt Count (130-400) K/uL MPV (7.2-11.7) fL Neut % (Auto) 41.7 L (50.0-75.0) % Lymph % (Auto) 31.6 (20.0-40.0) % Webb % (Auto) 22.6 H (0.0-10.0) % Eos % (Auto) 2.9 (0.0-4.0) % Baso % (Auto) 1.2 (0.0-2.0) % Neut # (Auto) 0.1 L (1.8-7.0) K/uL Lymph # (Auto) 0.1 L (1.0-4.3) K/uL Webb # (Auto) 0.1 (0.0-0.8) K/uL Eos # (Auto) 0.0 (0.0-0.7) K/uL Baso # (Auto) 0.0 (0.0-0.2) K/uL Total Counted Cancelled Neutrophils % (Manual) Cancelled Band Neutrophils % Cancelled Lymphocytes % (Manual) Cancelled Reactive Lymphs % Cancelled Monocytes % (Manual) Cancelled Eosinophils % (Manual) Cancelled Basophils % (Manual) Cancelled Metamyelocytes % Cancelled Myelocytes % Cancelled Promyelocytes % Cancelled Blast Cells % Cancelled Plasma Cell % (Manual) Cancelled Nucleated RBC % Cancelled Hypersegmented Polys Cancelled Smudge Cells Cancelled Toxic Granulation Cancelled Dohle Bodies Cancelled Vonda Rods Cancelled Platelet Estimate Cancelled Plt Clumps, EDTA Cancelled Large Platelets Cancelled Giant Platelets Cancelled RBC Morphology Cancelled Polychromasia Cancelled Hypochromasia (manual) Cancelled Poikilocytosis (manual Cancelled Basophilic Stippling Cancelled Anisocytosis (manual) Cancelled Microcytosis (manual) Cancelled Macrocytosis (manual) Cancelled Spherocytes Cancelled Sickle Cells Cancelled Target Cells Cancelled Tear Drop Cells Cancelled Ovalocytes Cancelled Stomatocytes Cancelled Helmet Cells Cancelled Mac-Solis Bodies Cancelled [place] Cells Cancelled Acanthocytes (Spur) Cancelled Rouleaux Cancelled Schistocytes Cancelled Puncture Site pCO2 (35-45) mm/Hg pO2 (80-100) mm/Hg HCO3 (21-28) mmol/L ABG pH (7.35-7.45) ABG Total CO2 (22-28) mmol/L ABG O2 Saturation (95-98) % ABG Base Excess (-2.0-3.0) mmol/L Harpreet Test ABG Potassium (3.6-5.2) mmol/L A-a O2 Difference mm/Hg Respiratory Index Sodium (132-148) mmol/l Chloride (98-107) mmol/L Glucose (75-110) mg/dl Lactate (0.7-2.1) mmol/L Vent Mode Mechanical Rate FiO2 % Tidal Volume PEEP Crit Value Called To Crit Value Called By Crit Value Read Back Blood Gas Notified Time Potassium (3.6-5.2) mmol/L Carbon Dioxide (22-30) mmol/L Anion Gap (10-20) BUN (9-20) mg/dL Creatinine (0.8-1.5) mg/dL Est GFR ( Amer) Est GFR (Non-Af Amer) POC Glucose (mg/dL) 146 H (65-110) mg/dL Random Glucose (75-110) mg/dL Calcium (8.6-10.4) mg/dl Phosphorus (2.5-4.5) mg/dL Magnesium (1.6-2.3) mg/dL Total Bilirubin (0.2-1.3) mg/dL AST (17-59) U/L ALT (21-72) U/L Alkaline Phosphatase (38-126) U/L Total Protein (6.3-8.3) g/dL Albumin (3.5-5.0) g/dL Globulin (2.2-3.9) gm/dL Albumin/Globulin Ratio (1.0-2.1) Arterial Blood Potassium (3.6-5.2) mmol/L Random Vancomycin ug/mL Ur L.pneumophila Ag Positive H (NEGATIVE) Laboratory Results - last 24 hr 08/27/17 08/28/17 08/28/17 16:02 06:26 11:26 WBC RBC Hgb Hct MCV MCH MCHC RDW Plt Count MPV Neut % (Auto) 41.7 L Lymph % (Auto) 31.6 Webb % (Auto) 22.6 H Eos % (Auto) 2.9 Baso % (Auto) 1.2 Neut # (Auto) 0.1 L Lymph # (Auto) 0.1 L Webb # (Auto) 0.1 Eos # (Auto) 0.0 Baso # (Auto) 0.0 Total Counted Cancelled Neutrophils % (Manual) Cancelled Band Neutrophils % Cancelled Lymphocytes % (Manual) Cancelled Reactive Lymphs % Cancelled Monocytes % (Manual) Cancelled Eosinophils % (Manual) Cancelled Basophils % (Manual) Cancelled Metamyelocytes % Cancelled Myelocytes % Cancelled Promyelocytes % Cancelled Blast Cells % Cancelled Plasma Cell % (Manual) Cancelled Nucleated RBC % Cancelled Hypersegmented Polys Cancelled Smudge Cells Cancelled Toxic Granulation Cancelled Dohle Bodies Cancelled Vonda Rods Cancelled Platelet Estimate Cancelled Plt Clumps, EDTA Cancelled Large Platelets Cancelled Giant Platelets Cancelled RBC Morphology Cancelled Polychromasia Cancelled Hypochromasia (manual) Cancelled Poikilocytosis (manual Cancelled Basophilic Stippling Cancelled Anisocytosis (manual) Cancelled Microcytosis (manual) Cancelled Macrocytosis (manual) Cancelled Spherocytes Cancelled Sickle Cells Cancelled Target Cells Cancelled Tear Drop Cells Cancelled Ovalocytes Cancelled Stomatocytes Cancelled Helmet Cells Cancelled Mac-Solis Bodies Cancelled [place] Cells Cancelled Acanthocytes (Spur) Cancelled Rouleaux Cancelled Schistocytes Cancelled Puncture Site pCO2 pO2 HCO3 ABG pH ABG Total CO2 ABG O2 Saturation ABG Base Excess Harpreet Test ABG Potassium A-a O2 Difference Respiratory Index Sodium Chloride Glucose Lactate Vent Mode Mechanical Rate FiO2 Tidal Volume PEEP Crit Value Called To Crit Value Called By Crit Value Read Back Blood Gas Notified Time Potassium Carbon Dioxide Anion Gap BUN Creatinine Est GFR ( Amer) Est GFR (Non-Af Amer) POC Glucose (mg/dL) 146 H Random Glucose Calcium Phosphorus Magnesium Total Bilirubin AST ALT Alkaline Phosphatase Total Protein Albumin Globulin Albumin/Globulin Ratio Arterial Blood Potassium Random Vancomycin Ur L.pneumophila Ag Positive H 08/28/17 08/28/17 08/28/17 18:08 19:34 21:47 WBC RBC Hgb Hct MCV MCH MCHC RDW Plt Count MPV Neut % (Auto) Lymph % (Auto) Webb % (Auto) Eos % (Auto) Baso % (Auto) Neut # (Auto) Lymph # (Auto) Webb # (Auto) Eos # (Auto) Baso # (Auto) Total Counted Neutrophils % (Manual) Band Neutrophils % Lymphocytes % (Manual) Reactive Lymphs % Monocytes % (Manual) Eosinophils % (Manual) Basophils % (Manual) Metamyelocytes % Myelocytes % Promyelocytes % Blast Cells % Plasma Cell % (Manual) Nucleated RBC % Hypersegmented Polys Smudge Cells Toxic Granulation Dohle Bodies Vonda Rods Platelet Estimate Plt Clumps, EDTA Large Platelets Giant Platelets RBC Morphology Polychromasia Hypochromasia (manual) Poikilocytosis (manual Basophilic Stippling Anisocytosis (manual) Microcytosis (manual) Macrocytosis (manual) Spherocytes Sickle Cells Target Cells Tear Drop Cells Ovalocytes Stomatocytes Helmet Cells Mac-Solis Bodies [place] Cells Acanthocytes (Spur) Rouleaux Schistocytes Puncture Site Lr pCO2 42 pO2 103 H HCO3 17.0 L ABG pH 7.22 L ABG Total CO2 18.5 L ABG O2 Saturation 99.2 H ABG Base Excess -10.1 L Harpreet Test Unable ABG Potassium 5.3 H A-a O2 Difference 415.0 Respiratory Index 4.0 Sodium 132.0 Chloride 103.0 Glucose 163 H Lactate 1.2 Vent Mode Prvc Mechanical Rate 25 FiO2 80.0 Tidal Volume 450 PEEP 10 Crit Value Called To Crit Value Called By Crit Value Read Back Blood Gas Notified Time Potassium Carbon Dioxide Anion Gap BUN Creatinine Est GFR ( Amer) Est GFR (Non-Af Amer) POC Glucose (mg/dL) 152 H Random Glucose Calcium Phosphorus Magnesium Total Bilirubin AST ALT Alkaline Phosphatase Total Protein Albumin Globulin Albumin/Globulin Ratio Arterial Blood Potassium 5.3 H Random Vancomycin 26.1 Ur L.pneumophila Ag 08/28/17 08/29/17 08/29/17 23:34 05:23 05:23 WBC RBC Hgb Hct MCV MCH MCHC RDW Plt Count MPV Neut % (Auto) Lymph % (Auto) Webb % (Auto) Eos % (Auto) Baso % (Auto) Neut # (Auto) Lymph # (Auto) Webb # (Auto) Eos # (Auto) Baso # (Auto) Total Counted Neutrophils % (Manual) Band Neutrophils % Lymphocytes % (Manual) Reactive Lymphs % Monocytes % (Manual) Eosinophils % (Manual) Basophils % (Manual) Metamyelocytes % Myelocytes % Promyelocytes % Blast Cells % Plasma Cell % (Manual) Nucleated RBC % Hypersegmented Polys Smudge Cells Toxic Granulation Dohle Bodies Vonda Rods Platelet Estimate Plt Clumps, EDTA Large Platelets Giant Platelets RBC Morphology Polychromasia Hypochromasia (manual) Poikilocytosis (manual Basophilic Stippling Anisocytosis (manual) Microcytosis (manual) Macrocytosis (manual) Spherocytes Sickle Cells Target Cells Tear Drop Cells Ovalocytes Stomatocytes Helmet Cells Mac-Solis Bodies [place] Cells Acanthocytes (Spur) Rouleaux Schistocytes Puncture Site Lr pCO2 44 pO2 122 H HCO3 15.4 L ABG pH 7.17 L* ABG Total CO2 17.4 L ABG O2 Saturation 99.3 H ABG Base Excess -12.2 L Harpreet Test Pos ABG Potassium 4.7 A-a O2 Difference 322.0 Respiratory Index 2.6 Sodium 132.0 Chloride 103.0 Glucose 188 H Lactate 1.0 Vent Mode Prvc Mechanical Rate 25 FiO2 70.0 Tidal Volume 450 PEEP 10 Crit Value Called To Allen rn Crit Value Called By Estrellita engine lathe tender Crit Value Read Back Y Blood Gas Notified Time 534 Potassium Carbon Dioxide Anion Gap BUN Creatinine Est GFR ( Amer) Est GFR (Non-Af Amer) POC Glucose (mg/dL) 171 H 102 Random Glucose Calcium Phosphorus Magnesium Total Bilirubin AST ALT Alkaline Phosphatase Total Protein Albumin Globulin Albumin/Globulin Ratio Arterial Blood Potassium 4.7 Random Vancomycin Ur L.pneumophila Ag 08/29/17 08/29/17 08/29/17 06:31 06:31 06:31 WBC 0.3 L* RBC 2.15 L Hgb 6.7 L D Hct 19.3 L MCV 89.7 MCH 31.1 H MCHC 34.6 RDW 17.7 H Plt Count 22 L* D MPV 8.0 Neut % (Auto) Lymph % (Auto) Webb % (Auto) Eos % (Auto) Baso % (Auto) Neut # (Auto) Lymph # (Auto) Webb # (Auto) Eos # (Auto) Baso # (Auto) Total Counted Neutrophils % (Manual) Band Neutrophils % Lymphocytes % (Manual) Reactive Lymphs % Monocytes % (Manual) Eosinophils % (Manual) Basophils % (Manual) Metamyelocytes % Myelocytes % Promyelocytes % Blast Cells % Plasma Cell % (Manual) Nucleated RBC % Hypersegmented Polys Smudge Cells Toxic Granulation Dohle Bodies Vonda Rods Platelet Estimate Plt Clumps, EDTA Large Platelets Giant Platelets RBC Morphology Polychromasia Hypochromasia (manual) Poikilocytosis (manual Basophilic Stippling Anisocytosis (manual) Microcytosis (manual) Macrocytosis (manual) Spherocytes Sickle Cells Target Cells Tear Drop Cells Ovalocytes Stomatocytes Helmet Cells Mac-Solis Bodies [place] Cells Acanthocytes (Spur) Rouleaux Schistocytes Puncture Site pCO2 pO2 HCO3 ABG pH ABG Total CO2 ABG O2 Saturation ABG Base Excess Haprreet Test ABG Potassium A-a O2 Difference Respiratory Index Sodium 135 Chloride 101 Glucose Lactate Vent Mode Mechanical Rate FiO2 Tidal Volume PEEP Crit Value Called To Crit Value Called By Crit Value Read Back Blood Gas Notified Time Potassium 4.9 Carbon Dioxide 16 L Anion Gap 23 H BUN 57 H Creatinine 3.0 H Est GFR ( Amer) 26 Est GFR (Non-Af Amer) 21 POC Glucose (mg/dL) Random Glucose 176 H Calcium 5.4 L* Phosphorus 5.6 H Magnesium 2.2 Total Bilirubin 5.2 H AST 145 H D ALT 154 H D Alkaline Phosphatase 157 H D Total Protein 6.0 L Albumin 3.0 L Globulin 2.9 Albumin/Globulin Ratio 1.0 Arterial Blood Potassium Random Vancomycin 18.3 Ur L.pneumophila Ag EKG/Cardiology Studies: Cardiology / EKG Studies 08/29/17 08:00 EKG [ELECTROCARDIOGRAM] Routine Comment: Mode Of Transportation: Reason For Exam: qtc Isolation: Contact Fingerstick Blood Sugar Results: 102 Critical Care Progress Note - Nutrition Nutrition: Nutrition Category Date Time Status Heart Healthy Diet [DIET] Diets 08/18/17 Lunch Active Assessment/Plan - Assessment and Plan (Free Text) Assessment: 61 y/o male with pmx of prostate ca with mets to lung being treated with XRT and oral chemo. Patient was being treated with mucomyst inhalation and develoepd hypoxic respiratory failure with significant sputum production. ICU evaluated patent at bedside on 6th floor. Patient was being treated with IVF and IV antibiotics. -Acute hypoxic respiratory failure: suspect 2nd large VQ mismatch, despite left lung white out, FiO2 decreased to 70%. Continue ventilation to keep spo2 >92 and pH b/w 7.35-7.45, continue bronchodilaotrs and IV steroids, peep 10, left select suction catheter, copious secretions -Septic shock: continue IVF at 75 ml/kg and continue pressros to keep MAP >65, serial lactic -Pneumonia: legionella; continue doxycycline, avoid moxi as QTC increased, afb pending -Chronic systolic heart failure: check echo, bnp >2000, echo pending -HUSSAIN: monitor urine output, goasl of U/O more than 0.5 ml/kg/hr, avoid nephrotoxic drugs -anemia: 2nd anemia of chronic disease, check fecal occult blood, transfuse blood today to keep hb/hct > 8/24 -neutropenia: 2nd oral chemo, continue neupogen -GI: (+)residual 60 ml, no BMs, continue [id number] ml/hr -thrombocytopenia: hb decreased, suspect Gi tract, will transfuse 1 unit platelet -Transaminitis: suspect 2nd shock, avoid hepatotoxic drugs, US liver did not reveal signs of cholecystitis -check and replace electrolytes -skin: supplemental MVI/vitamin C + turn q2 hrs -dvt ppx: scds (thrombocytopenia) -PUD ppx protonix -Goals of care discussed with family -if left lung does not improve will offer bronchoscopy cc time 35 minutes
[2017-08-29] MEDS ORDERED: Albuterol-Ipratrop 3 mg / 0.5 (3 ml) UD INH SCH (08:00)
[2017-08-29] MEDS: Acetylcysteine 20% Inhal Soln (4ml) PO SCH ×2 (09:28→21:29)
[2017-08-29] MEDS: Fluconazole IV 100mg/50 ml NS 50 ML IVPB SCH (09:29)
[2017-08-29] MEDS: Atovaquone 750 mg/5 ml Susp UD PO SCH (09:30)
[2017-08-29] MEDS: Mupirocin 2% Ointment (NASAL) NAS SCH ×2 (10:55→17:36)
[2017-08-29] MEDS: Docusate-Senna 50 mg-8.6 mg Tab GT SCH (11:01)
--- NOTE | 2017-08-29 11:05 | CP.PCM.CON ---
History of Present Illness - History of Present Illness History of Present Illness: Patient evalauted discussed with family members. Patient is a 61 year old male with metastatic prostate CA who presents with dyspnea. He became febrile and hypotensive. He was pancytopenic. He was intubated and transferred to ICU. He has had persistent sinus tachycardia. He is currently on pressors. Review of Systems - Review of Systems Systems not reviewed;Unavailable: Intubated - EENT Ears: absent: As Per HPI, Decreased Hearing, Ear Discharge, Ear Pain, Tinnitus, Abnormal Hearing, Disequilibrium, Dizziness, Other Past Patient History - Past Medical History & Family History Past Medical History?: Yes - Past Social History Smoking Status: Never Smoked Chewing Tobacco Use: No Cigar Use: No Alcohol: None - CARDIAC Hx Cardiac Disorders: No - PULMONARY Hx Respiratory Disorders: No - NEUROLOGICAL Hx Neurological Disorder: No - HEENT Hx HEENT Problems: No - RENAL Hx Chronic Kidney Disease: No - ENDOCRINE/METABOLIC Hx Endocrine Disorders: No - HEMATOLOGICAL/ONCOLOGICAL Hx Blood Transfusions: Yes Hx Blood Transfusion Reaction: No - INTEGUMENTARY Hx Dermatological Problems: No - MUSCULOSKELETAL/RHEUMATOLOGICAL Hx Musculoskeletal Disorders: No Hx Falls: No Hx Unsteady Gait: No - GASTROINTESTINAL Hx Gastrointestinal Disorders: No - GENITOURINARY/GYNECOLOGICAL Hx Genitourinary Disorders: Yes Hx Prostate Cancer: Yes (radiation) - PSYCHIATRIC Hx Substance Use: No - SURGICAL HISTORY Hx Surgeries: No - ANESTHESIA Hx Anesthesia: No Hx Anesthesia Reactions: No Hx Malignant Hyperthermia: No Meds Allergies/Adverse Reactions: Allergies Allergy/AdvReac Type Severity Reaction Status Date / Time No Known Allergies Allergy Verified 08/09/17 11:24 - Medications Medications: Current Medications Acetaminophen (Tylenol 325mg Tab) 650 mg PO Q8 PRN PRN Reason: Fever >100.4 F Last Admin: 08/27/17 07:16 Dose: 650 mg Acetylcysteine (Acetylcysteine 20%) 4 ml PO Q12 RENAN Stop: 08/29/17 22:01 Last Admin: 08/29/17 09:28 Dose: 4 ml Albuterol/Ipratropium (Duoneb 3 Mg/0.5 Mg (3 Ml) Ud) 3 ml INH RQ4 RENAN Atovaquone (Mepron) 1,500 mg PO DAILY RENA[facility] PRN Reason: Protocol Last Admin: 08/29/17 09:30 Dose: 1,500 mg Docusate Sodium (Colace) 100 mg PO DAILY [facility] Last Admin: 08/29/17 09:29 Dose: 100 mg Hydrocortisone Sodium Succinate (Solu-Cortef) 100 mg IV Q8 [facility] Last Admin: 08/29/17 05:20 Dose: 100 mg Fluconazole (Diflucan Iv 100 Mg/50 Ml Ns) 50 mls @ 100 mls/hr IVPB DAILY [facility] PRN Reason: Protocol Last Admin: 08/29/17 09:29 Dose: 100 mls/hr Propofol (Diprivan) 1,000 mg in 100 mls @ 2.218 mls/hr IV .Q24H PRN; Protocol; 5 MCG/KG/MIN PRN Reason: TITRATE PER MD ORDER Last Admin: 08/29/17 07:21 Dose: 30 mcg/kg/min, 13.308 mls/hr Dexmedetomidine HCl 200 mcg/ (Sodium Chloride) 50 mls @ 3.69 mls/hr IV TITR PRN ; Protocol; 0.2 MCG/KG/HR PRN Reason: Sedation Last Titration: 08/27/17 21:00 Dose: 0 mcg/kg/hr, 0 mls/hr Doxycycline Hyclate 100 mg/ (Sodium Chloride) 100 mls @ 100 mls/hr IVPB Q12H [facility] PRN Reason: Protocol Last Admin: 08/29/17 05:20 Dose: 100 mls/hr Sodium Bicarbonate 75 meq/ (Sodium Chloride) 1,075 mls @ 75 mls/hr IV .[id number] [facility] Last Admin: 08/29/17 03:20 Dose: 75 mls/hr Phenylephrine HCl 30 mg/ (Dextrose) 253 mls @ 20.23 mls/hr IV .[id number] PRN; Protocol; 40 MCG/MIN PRN Reason: TITRATE PER MD ORDER Last Admin: 08/29/17 08:56 Dose: 90 mcg/min, 45.54 mls/hr Meropenem 1 gm/ Sodium (Chloride) 100 mls @ 100 mls/hr IVPB Q12H [facility] PRN Reason: Protocol Last Admin: 08/29/17 02:33 Dose: 100 mls/hr Calcium Gluconate 1,000 mg/ (Sodium Chloride) 110 mls @ 110 mls/hr IVPB ONCE ONE Stop: 08/29/17 11:59 Insulin Aspart (Novolog) 0 unit SC Q6 [facility] PRN Reason: Protocol Last Admin: 08/29/17 05:28 Dose: Not Given Mupirocin (Bactroban 2% Nasal) 0.25 gm JORDON BID [facility] Stop: 08/30/17 18:01 Last Admin: 08/29/17 10:55 Dose: 0.25 gm Pantoprazole Sodium (Protonix Inj) 40 mg IVP Q12H [facility] Last Admin: 08/29/17 02:33 Dose: 40 mg Senna/Docusate Sodium (Senokot S 50 Mg-8.6 Mg) 1 tab GT DAILY [facility] Last Admin: 08/29/17 11:01 Dose: 1 tab Physical Exam - Constitutional Appears: Toxic - Head Exam Head Exam: NORMAL INSPECTION - Eye Exam Eye Exam: Scleral icterus - ENT Exam ENT Exam: Mucous Membranes Dry - Neck Exam Neck exam: Negative for: Thyromegaly - Respiratory Exam Respiratory Exam: Decreased Breath Sounds - Cardiovascular Exam Cardiovascular Exam: Tachycardia, REGULAR RHYTHM - GI/Abdominal Exam GI & Abdominal Exam: Diminished Bowel Sounds - Rectal Exam Rectal Exam: Deferred - Extremities Exam Extremities exam: Positive for: pedal edema - Back Exam Back exam: NORMAL INSPECTION - Skin Skin Exam: Normal Color Results - Vital Signs Recent Vital Signs: Last Vital Signs Temp 98.1 F 08/29/17 10:33 Pulse 103 H 08/29/17 10:40 Resp 25 H 08/29/17 10:40 BP 91/56 L 08/29/17 10:40 Pulse Ox 99 08/29/17 10:40 - Labs Result Diagrams: 08/29/17 06:31 08/29/17 06:31 Labs: Laboratory Results - last 24 hr 08/28/17 08/28/17 08/28/17 11:26 18:08 19:34 WBC RBC Hgb Hct MCV MCH MCHC RDW Plt Count MPV Puncture Site pCO2 pO2 HCO3 ABG pH ABG Total CO2 ABG O2 Saturation ABG Base Excess Harpreet Test ABG Potassium A-a O2 Difference Respiratory Index Sodium Chloride Glucose Lactate Vent Mode Mechanical Rate FiO2 Tidal Volume PEEP Crit Value Called To Crit Value Called By Crit Value Read Back Blood Gas Notified Time Potassium Carbon Dioxide Anion Gap BUN Creatinine Est GFR ( Amer) Est GFR (Non-Af Amer) POC Glucose (mg/dL) 146 H 152 H Random Glucose Calcium Phosphorus Magnesium Total Bilirubin AST ALT Alkaline Phosphatase Total Protein Albumin Globulin Albumin/Globulin Ratio Arterial Blood Potassium Random Vancomycin 26.1 Blood Type Antibody Screen Crossmatch 08/28/17 08/28/17 08/29/17 21:47 23:34 05:23 WBC RBC Hgb Hct MCV MCH MCHC RDW Plt Count MPV Puncture Site Lr Lr pCO2 42 44 pO2 103 H 122 H HCO3 17.0 L 15.4 L ABG pH 7.22 L 7.17 L* ABG Total CO2 18.5 L 17.4 L ABG O2 Saturation 99.2 H 99.3 H ABG Base Excess -10.1 L -12.2 L Harpreet Test Unable Pos ABG Potassium 5.3 H 4.7 A-a O2 Difference 415.0 322.0 Respiratory Index 4.0 2.6 Sodium 132.0 132.0 Chloride 103.0 103.0 Glucose 163 H 188 H Lactate 1.2 1.0 Vent Mode Prvc Prvc Mechanical Rate 25 25 FiO2 80.0 70.0 Tidal Volume 450 450 PEEP 10 10 Crit Value Called To Allen vasques Crit Value Called By Estrellita news videographer Crit Value Read Back Y Blood Gas Notified Time 534 Potassium Carbon Dioxide Anion Gap BUN Creatinine Est GFR ( Amer) Est GFR (Non-Af Amer) POC Glucose (mg/dL) 171 H Random Glucose Calcium Phosphorus Magnesium Total Bilirubin AST ALT Alkaline Phosphatase Total Protein Albumin Globulin Albumin/Globulin Ratio Arterial Blood Potassium 5.3 H 4.7 Random Vancomycin Blood Type Antibody Screen Crossmatch 08/29/17 08/29/17 08/29/17 05:23 06:31 06:31 WBC 0.3 L* RBC 2.15 L Hgb 6.7 L D Hct 19.3 L MCV 89.7 MCH 31.1 H MCHC 34.6 RDW 17.7 H Plt Count 22 L* D MPV 8.0 Puncture Site pCO2 pO2 HCO3 ABG pH ABG Total CO2 ABG O2 Saturation ABG Base Excess Harpreet Test ABG Potassium A-a O2 Difference Respiratory Index Sodium 135 Chloride 101 Glucose Lactate Vent Mode Mechanical Rate FiO2 Tidal Volume PEEP Crit Value Called To Crit Value Called By Crit Value Read Back Blood Gas Notified Time Potassium 4.9 Carbon Dioxide 16 L Anion Gap 23 H BUN 57 H Creatinine 3.0 H Est GFR ( Amer) 26 Est GFR (Non-Af Amer) 21 POC Glucose (mg/dL) 102 Random Glucose 176 H Calcium 5.4 L* Phosphorus 5.6 H Magnesium 2.2 Total Bilirubin 5.2 H AST 145 H D ALT 154 H D Alkaline Phosphatase 157 H D Total Protein 6.0 L Albumin 3.0 L Globulin 2.9 Albumin/Globulin Ratio 1.0 Arterial Blood Potassium Random Vancomycin Blood Type Antibody Screen Crossmatch 08/29/17 08/29/17 06:31 08:55 WBC RBC Hgb Hct MCV MCH MCHC RDW Plt Count MPV Puncture Site pCO2 pO2 HCO3 ABG pH ABG Total CO2 ABG O2 Saturation ABG Base Excess Harpreet Test ABG Potassium A-a O2 Difference Respiratory Index Sodium Chloride Glucose Lactate Vent Mode Mechanical Rate FiO2 Tidal Volume PEEP Crit Value Called To Crit Value Called By Crit Value Read Back Blood Gas Notified Time Potassium Carbon Dioxide Anion Gap BUN Creatinine Est GFR ( Amer) Est GFR (Non-Af Amer) POC Glucose (mg/dL) Random Glucose Calcium Phosphorus Magnesium Total Bilirubin AST ALT Alkaline Phosphatase Total Protein Albumin Globulin Albumin/Globulin Ratio Arterial Blood Potassium Random Vancomycin 18.3 Blood Type O POSITIVE Antibody Screen Negative Crossmatch See Detail - EKG Data EKG Interpreted by: Myself Assessment & Plan (1) Tachycardia Assessment and Plan: secondary due to septic shock. no evidence of SVT. continue supportive care. will monitor QT interval on Levaquin Status: Acute
[2017-08-29 11:33] LABS: EOS % 1.7 % (0.0-4.0); LYMPH % 28.3 % (20.0-40.0); MONO % 22.5 % (0.0-10.0); NEUT % 47.5 % (50.0-75.0)
[2017-08-29 11:34] LABS: LYMPH # 0.1 K/uL (1.0-4.3); MONO # 0.1 K/uL (0.0-0.8); NEUT # 0.1 K/uL (1.8-7.0); NRBC % 3.3 % (0.0-2.0)
[2017-08-29 13:02] LABS: EOS % 2.4 % (0.0-4.0); HEMOGLOBIN 7.9 g/dL (12.0-18.0); MEAN CORPUSCULAR HEMOGLOBIN 30.6 pg (27.0-31.0); MEAN CORPUSCULAR HGB CONC 34.8 g/dL (33.0-37.0); MEAN PLATELET VOLUME 8.3 fL (7.2-11.7); MONO # 0.2 K/uL (0.0-0.8); MONO % 77.6 % (0.0-10.0); NRBC % 1.1 % (0.0-2.0); RBC 2.58 Mil/uL (4.40-5.90); RED CELL DISTRIBUTION WIDTH 16.8 % (11.5-14.5)
[2017-08-29 13:46] LABS: WHITE BLOOD COUNT 0.2 K/uL (4.8-10.8)
[2017-08-29 13:49] LABS: INR 1.4; PROTHROMBIN TIME 15.4 SECONDS (9.7-12.2)
--- NOTE | 2017-08-29 15:53 | RAD ---
HISTORY: left lung secretions/whiteout. COMPARISON: Comparison chest 08/29/2017 at 7:08 a.m. FINDINGS: In situ ETT, tip of which lies approximately 4.7 cm above marcial. No change right IJ central line with tip in the brachiocephalic/SVC junction. In situ NGT, tip of which has not been included on this film though distal aspect does lie well below EG junction. LUNGS: Near complete opacification left pari thorax. . There also appears to be increased of interstitial markings (reticulonodular appearance) throughout the right lung PLEURA: Left-sided effusion not excluded. No pneumothorax apparent. CARDIOVASCULAR: Normal. OSSEOUS STRUCTURES: No significant abnormalities. VISUALIZED UPPER ABDOMEN: Normal. OTHER FINDINGS: None. IMPRESSION: Support lines and tubes as above. Near complete opacification left pari thorax. . There also appears to be increased of interstitial markings (reticulonodular appearance) throughout the right lung
--- NOTE | 2017-08-29 16:01 | RAD ---
HISTORY: Intubated/ff up COMPARISON: Comparison made with prior study 08/28/2017 FINDINGS: In situ ETT, tip of which lies approximately 3.9 cm above marcial. No change right IJ central line with tip in the brachiocephalic/SVC junction. In situ NGT, tip of which has not been included on this film though distal aspect does lie well below EG junction. LUNGS: Near complete opacification left pari thorax progressed since prior exam. . There also appears to be mild increased of interstitial markings (reticulonodular appearance) throughout the right lung PLEURA: Left-sided pleural effusion not excluded. No evidence of pneumothorax CARDIOVASCULAR: Normal. OSSEOUS STRUCTURES: No significant abnormalities. VISUALIZED UPPER ABDOMEN: Normal. OTHER FINDINGS: None. IMPRESSION: Support lines and tubes as above. Near complete opacification left pari thorax progressed since prior exam. . There also appears to be mild increased of interstitial markings (reticulonodular appearance) throughout the right lung
[2017-08-29] MEDS: Azithromycin 500 MG in Sodium Chloride 0.9% 250 ML IVPB SCH (16:34)
--- NOTE | 2017-08-29 20:25 | CP.PCM.CON ---
History of Present Illness - History of Present Illness History of Present Illness: Pulmonary consult; Covering Dr. Escobar The Patient was seen and examined at the bedside, Medical records reviewed and management issues were discussed and formulated with the house staff. Events reviewed 61 year old male with PMHx of stage IV prostate cancer with lymph node and metastasis to bone on radiation and total androgen deprivation and palliative radiotherapy to the bone. Who was initially admitted with abdominal pain and pancytopenia. Pt recently had an endoscopy which he reports revealed gastritis and coral infection. Pt was transferred to the ICU for Acute respiratory failure with hypoxemia, septic shoch from legionella Pneumonia, Acute Kidney Injury and currently with collapsed Left lung Patient sedated and orally intubated. PRVC AC25 TV 500 FiO2 70% PEEP of 8 Pt on Propofol and PRN ativan Resp nonlabored, few spontaneous resp noted over the vent set rate. Continue to have fever spikes NSR on the monitor Last 24H I&O 6580/250 Severe neutrpenia with ANC 16, placed on neutropenic precaution Platelets count verr low, 48 CXR: Near complete opacification left pari thorax, increased of interstitial markings (reticulonodular appearance) throughout the right lung Review of Systems - Review of Systems Systems not reviewed;Unavailable: Intubated Past Patient History - Past Medical History & Family History Past Medical History?: Yes - Past Social History Smoking Status: Never Smoked Chewing Tobacco Use: No Cigar Use: No Alcohol: None - CARDIAC Hx Cardiac Disorders: No - PULMONARY Hx Respiratory Disorders: No - NEUROLOGICAL Hx Neurological Disorder: No - HEENT Hx HEENT Problems: No - RENAL Hx Chronic Kidney Disease: No - ENDOCRINE/METABOLIC Hx Endocrine Disorders: No - HEMATOLOGICAL/ONCOLOGICAL Hx Blood Transfusions: Yes Hx Blood Transfusion Reaction: No - INTEGUMENTARY Hx Dermatological Problems: No - MUSCULOSKELETAL/RHEUMATOLOGICAL Hx Musculoskeletal Disorders: No Hx Falls: No Hx Unsteady Gait: No - GASTROINTESTINAL Hx Gastrointestinal Disorders: No - GENITOURINARY/GYNECOLOGICAL Hx Genitourinary Disorders: Yes Hx Prostate Cancer: Yes (radiation) - PSYCHIATRIC Hx Substance Use: No - SURGICAL HISTORY Hx Surgeries: No - ANESTHESIA Hx Anesthesia: No Hx Anesthesia Reactions: No Hx Malignant Hyperthermia: No Meds Allergies/Adverse Reactions: Allergies Allergy/AdvReac Type Severity Reaction Status Date / Time No Known Allergies Allergy Verified 08/09/17 11:24 - Medications Medications: Current Medications Acetaminophen (Tylenol 325mg Tab) 650 mg PO Q8 PRN PRN Reason: Fever >100.4 F Last Admin: 08/27/17 07:16 Dose: 650 mg Acetylcysteine (Acetylcysteine 20%) 4 ml PO Q12 RENAN Stop: 08/29/17 22:01 Last Admin: 08/29/17 09:28 Dose: 4 ml Albuterol/Ipratropium (Duoneb 3 Mg/0.5 Mg (3 Ml) Ud) 3 ml INH RQ4 RENAN Atovaquone (Mepron) 1,500 mg PO DAILY RENAN PRN Reason: Protocol Last Admin: 08/29/17 09:30 Dose: 1,500 mg Docusate Sodium (Colace) 100 mg PO DAILY [facility] Last Admin: 08/29/17 09:29 Dose: 100 mg Hydrocortisone Sodium Succinate (Solu-Cortef) 100 mg IV Q8 [facility] Last Admin: 08/29/17 13:20 Dose: 100 mg Fluconazole (Diflucan Iv 100 Mg/50 Ml Ns) 50 mls @ 100 mls/hr IVPB DAILY RENAN PRN Reason: Protocol Last Admin: 08/29/17 09:29 Dose: 100 mls/hr Propofol (Diprivan) 1,000 mg in 100 mls @ 2.218 mls/hr IV .Q24H PRN; Protocol; 5 MCG/KG/MIN PRN Reason: TITRATE PER MD ORDER Last Admin: 08/29/17 14:14 Dose: 30 mcg/kg/min, 13.308 mls/hr Dexmedetomidine HCl 200 mcg/ (Sodium Chloride) 50 mls @ 3.69 mls/hr IV TITR PRN ; Protocol; 0.2 MCG/KG/HR PRN Reason: Sedation Last Titration: 08/27/17 21:00 Dose: 0 mcg/kg/hr, 0 mls/hr Sodium Bicarbonate 75 meq/ (Sodium Chloride) 1,075 mls @ 75 mls/hr IV .[id number] [facility] Last Admin: 08/29/17 17:37 Dose: 75 mls/hr Phenylephrine HCl 30 mg/ (Dextrose) 253 mls @ 20.23 mls/hr IV .[id number] PRN; Protocol; 40 MCG/MIN PRN Reason: TITRATE PER MD ORDER Last Titration: 08/29/17 18:00 Dose: 80 mcg/min, 40.48 mls/hr Meropenem 1 gm/ Sodium (Chloride) 100 mls @ 100 mls/hr IVPB Q12H RENAN PRN Reason: Protocol Last Admin: 08/29/17 14:05 Dose: 100 mls/hr Azithromycin 500 mg/ Sodium (Chloride) 250 mls @ 250 mls/hr IVPB Q24H RENAN PRN Reason: Protocol Last Admin: 08/29/17 16:34 Dose: 250 mls/hr Insulin Aspart (Novolog) 0 unit SC Q6 RENAN PRN Reason: Protocol Last Admin: 08/29/17 17:44 Dose: 1 u Mupirocin (Bactroban 2% Nasal) 0.25 gm JORDON BID [facility] Stop: 08/30/17 18:01 Last Admin: 08/29/17 17:36 Dose: 0.25 gm Pantoprazole Sodium (Protonix Inj) 40 mg IVP Q12H [facility] Last Admin: 08/29/17 13:18 Dose: 40 mg Senna/Docusate Sodium (Senokot S 50 Mg-8.6 Mg) 1 tab GT DAILY [facility] Last Admin: 08/29/17 11:01 Dose: 1 tab Physical Exam - Constitutional Appears: No Acute Distress (Patient sedated and orally intubated), Chronically Ill, Other (Patient sedated and orally intubated) - Head Exam Head Exam: ATRAUMATIC, NORMAL INSPECTION - Eye Exam Eye Exam: EOMI. absent: Conjunctival injection Pupil Exam: NORMAL ACCOMODATION, PERRL - ENT Exam ENT Exam: Mucous Membranes Dry - Neck Exam Neck exam: Positive for: Full Rom. Negative for: Lymphadenopathy, Meningismus, Tenderness, Thyromegaly - Respiratory Exam Respiratory Exam: Decreased Breath Sounds, Rhonchi. absent: Accessory Muscle Use, Chest Wall Tenderness, Wheezes, Respiratory Distress - Cardiovascular Exam Cardiovascular Exam: Tachycardia, REGULAR RHYTHM, RRR, +S1, +S2. absent: Diastolic murmur, JVD, Systolic Murmur - GI/Abdominal Exam GI & Abdominal Exam: Diminished Bowel Sounds, Distended, Normal Bowel Sounds. absent: Firm, Guarding - Extremities Exam Extremities exam: Positive for: normal capillary refill, pedal edema. Negative for: calf tenderness, joint swelling, normal inspection, tenderness - Back Exam Back exam: absent: CVA tenderness (L), CVA tenderness (R) Results - Vital Signs Recent Vital Signs: Last Vital Signs Temp 98.1 F 08/29/17 15:43 Pulse 108 H 08/29/17 19:02 Resp 28 H 08/29/17 19:02 BP 103/67 08/29/17 19:02 Pulse Ox 98 08/29/17 19:02 - Labs Result Diagrams: 09/01/17 06:08 09/01/17 06:09 Labs: Laboratory Results - last 24 hr 08/28/17 08/28/17 08/29/17 21:47 23:34 05:23 WBC RBC Hgb Hct MCV MCH MCHC RDW Plt Count MPV Neut % (Auto) Lymph % (Auto) [place] % (Auto) Eos % (Auto) Baso % (Auto) Neut # (Auto) Lymph # (Auto) [place] # (Auto) Eos # (Auto) Baso # (Auto) Total Counted Neutrophils % (Manual) Band Neutrophils % Lymphocytes % (Manual) Reactive Lymphs % Monocytes % (Manual) Eosinophils % (Manual) Basophils % (Manual) Metamyelocytes % Myelocytes % Promyelocytes % Blast Cells % Plasma Cell % (Manual) Nucleated RBC % Hypersegmented Polys Smudge Cells Toxic Granulation Dohle Bodies Vonda Rods Platelet Estimate Plt Clumps, EDTA Large Platelets Giant Platelets RBC Morphology Polychromasia Hypochromasia (manual) Poikilocytosis (manual Basophilic Stippling Anisocytosis (manual) Microcytosis (manual) Macrocytosis (manual) Spherocytes Sickle Cells Target Cells Tear Drop Cells Ovalocytes Stomatocytes Helmet Cells [place] Bodies [place] Cells Acanthocytes (Spur) Rouleaux Schistocytes PT INR Fibrinogen Puncture Site Lr Lr pCO2 42 44 pO2 103 H 122 H HCO3 17.0 L 15.4 L ABG pH 7.22 L 7.17 L* ABG Total CO2 18.5 L 17.4 L ABG O2 Saturation 99.2 H 99.3 H ABG Base Excess -10.1 L -12.2 L Harpreet Test Unable Pos ABG Potassium 5.3 H 4.7 A-a O2 Difference 415.0 322.0 Respiratory Index 4.0 2.6 Sodium 132.0 132.0 Chloride 103.0 103.0 Glucose 163 H 188 H Lactate 1.2 1.0 Vent Mode Prvc Prvc Mechanical Rate 25 25 FiO2 80.0 70.0 Tidal Volume 450 450 PEEP 10 10 Crit Value Called To Allen rn Crit Value Called By Estrellita visiting nurse Crit Value Read Back Y Blood Gas Notified Time 534 Potassium Carbon Dioxide Anion Gap BUN Creatinine Est GFR ( Amer) Est GFR (Non-Af Amer) POC Glucose (mg/dL) 171 H Random Glucose Calcium Phosphorus Magnesium Total Bilirubin AST ALT Alkaline Phosphatase Total Protein Albumin Globulin Albumin/Globulin Ratio Arterial Blood Potassium 5.3 H 4.7 Random Vancomycin Blood Type Antibody Screen Crossmatch 08/29/17 08/29/17 08/29/17 05:23 06:31 06:31 WBC 0.3 L* RBC 2.15 L Hgb 6.7 L D Hct 19.3 L MCV 89.7 MCH 31.1 H MCHC 34.6 RDW 17.7 H Plt Count 22 L* D MPV 8.0 Neut % (Auto) 47.5 L Lymph % (Auto) 28.3 [place] % (Auto) 22.5 H Eos % (Auto) 1.7 Baso % (Auto) 0.0 Neut # (Auto) 0.1 L Lymph # (Auto) 0.1 L [place] # (Auto) 0.1 Eos # (Auto) 0.0 Baso # (Auto) 0.0 Total Counted Cancelled Neutrophils % (Manual) Cancelled Band Neutrophils % Cancelled Lymphocytes % (Manual) Cancelled Reactive Lymphs % Cancelled Monocytes % (Manual) Cancelled Eosinophils % (Manual) Cancelled Basophils % (Manual) Cancelled Metamyelocytes % Cancelled Myelocytes % Cancelled Promyelocytes % Cancelled Blast Cells % Cancelled Plasma Cell % (Manual) Cancelled Nucleated RBC % Cancelled Hypersegmented Polys Cancelled Smudge Cells Cancelled Toxic Granulation Cancelled Dohle Bodies Cancelled Vonda Rods Cancelled Platelet Estimate Cancelled Plt Clumps, EDTA Cancelled Large Platelets Cancelled Giant Platelets Cancelled RBC Morphology Cancelled Polychromasia Cancelled Hypochromasia (manual) Cancelled Poikilocytosis (manual Cancelled Basophilic Stippling Cancelled Anisocytosis (manual) Cancelled Microcytosis (manual) Cancelled Macrocytosis (manual) Cancelled Spherocytes Cancelled Sickle Cells Cancelled Target Cells Cancelled Tear Drop Cells Cancelled Ovalocytes Cancelled Stomatocytes Cancelled Helmet Cells Cancelled [place] Bodies Cancelled [place] Cells Cancelled Acanthocytes (Spur) Cancelled Rouleaux Cancelled Schistocytes Cancelled PT INR Fibrinogen Puncture Site pCO2 pO2 HCO3 ABG pH ABG Total CO2 ABG O2 Saturation ABG Base Excess Harpreet Test ABG Potassium A-a O2 Difference Respiratory Index Sodium 135 Chloride 101 Glucose Lactate Vent Mode Mechanical Rate FiO2 Tidal Volume PEEP Crit Value Called To Crit Value Called By Crit Value Read Back Blood Gas Notified Time Potassium 4.9 Carbon Dioxide 16 L Anion Gap 23 H BUN 57 H Creatinine 3.0 H Est GFR ( Amer) 26 Est GFR (Non-Af Amer) 21 POC Glucose (mg/dL) 102 Random Glucose 176 H Calcium 5.4 L* Phosphorus 5.6 H Magnesium 2.2 Total Bilirubin 5.2 H AST 145 H D ALT 154 H D Alkaline Phosphatase 157 H D Total Protein 6.0 L Albumin 3.0 L Globulin 2.9 Albumin/Globulin Ratio 1.0 Arterial Blood Potassium Random Vancomycin Blood Type Antibody Screen Crossmatch 08/29/17 08/29/17 08/29/17 06:31 08:55 11:13 WBC RBC Hgb Hct MCV MCH MCHC RDW Plt Count MPV Neut % (Auto) Lymph % (Auto) [place] % (Auto) Eos % (Auto) Baso % (Auto) Neut # (Auto) Lymph # (Auto) [place] # (Auto) Eos # (Auto) Baso # (Auto) Total Counted Neutrophils % (Manual) Band Neutrophils % Lymphocytes % (Manual) Reactive Lymphs % Monocytes % (Manual) Eosinophils % (Manual) Basophils % (Manual) Metamyelocytes % Myelocytes % Promyelocytes % Blast Cells % Plasma Cell % (Manual) Nucleated RBC % Hypersegmented Polys Smudge Cells Toxic Granulation Dohle Bodies Vonda Rods Platelet Estimate Plt Clumps, EDTA Large Platelets Giant Platelets RBC Morphology Polychromasia Hypochromasia (manual) Poikilocytosis (manual Basophilic Stippling Anisocytosis (manual) Microcytosis (manual) Macrocytosis (manual) Spherocytes Sickle Cells Target Cells Tear Drop Cells Ovalocytes Stomatocytes Helmet Cells [place] Bodies [place] Cells Acanthocytes (Spur) Rouleaux Schistocytes PT INR Fibrinogen Puncture Site pCO2 pO2 HCO3 ABG pH ABG Total CO2 ABG O2 Saturation ABG Base Excess Harpreet Test ABG Potassium A-a O2 Difference Respiratory Index Sodium Chloride Glucose Lactate Vent Mode Mechanical Rate FiO2 Tidal Volume PEEP Crit Value Called To Crit Value Called By Crit Value Read Back Blood Gas Notified Time Potassium Carbon Dioxide Anion Gap BUN Creatinine Est GFR ( Amer) Est GFR (Non-Af Amer) POC Glucose (mg/dL) 220 H Random Glucose Calcium Phosphorus Magnesium Total Bilirubin AST ALT Alkaline Phosphatase Total Protein Albumin Globulin Albumin/Globulin Ratio Arterial Blood Potassium Random Vancomycin 18.3 Blood Type O POSITIVE Antibody Screen Negative Crossmatch See Detail 08/29/17 08/29/17 08/29/17 12:59 12:59 17:40 WBC 0.2 L* RBC 2.58 L Hgb 7.9 L Hct 22.7 L MCV 88.0 MCH 30.6 MCHC 34.8 RDW 16.8 H Plt Count 23 L* MPV 8.3 Neut % (Auto) 8.0 L Lymph % (Auto) 12.0 L [place] % (Auto) 77.6 H Eos % (Auto) 2.4 Baso % (Auto) 0.0 Neut # (Auto) 0.0 L Lymph # (Auto) 0.0 L [place] # (Auto) 0.2 Eos # (Auto) 0.0 Baso # (Auto) 0.0 Total Counted Cancelled Neutrophils % (Manual) Cancelled Band Neutrophils % Cancelled Lymphocytes % (Manual) Cancelled Reactive Lymphs % Cancelled Monocytes % (Manual) Cancelled Eosinophils % (Manual) Cancelled Basophils % (Manual) Cancelled Metamyelocytes % Cancelled Myelocytes % Cancelled Promyelocytes % Cancelled Blast Cells % Cancelled Plasma Cell % (Manual) Cancelled Nucleated RBC % Cancelled Hypersegmented Polys Cancelled Smudge Cells Cancelled Toxic Granulation Cancelled Dohle Bodies Cancelled Vonda Rods Cancelled Platelet Estimate Cancelled Plt Clumps, EDTA Cancelled Large Platelets Cancelled Giant Platelets Cancelled RBC Morphology Cancelled Polychromasia Cancelled Hypochromasia (manual) Cancelled Poikilocytosis (manual Cancelled Basophilic Stippling Cancelled Anisocytosis (manual) Cancelled Microcytosis (manual) Cancelled Macrocytosis (manual) Cancelled Spherocytes Cancelled Sickle Cells Cancelled Target Cells Cancelled Tear Drop Cells Cancelled Ovalocytes Cancelled Stomatocytes Cancelled Helmet Cells Cancelled [place] Bodies Cancelled [place] Cells Cancelled Acanthocytes (Spur) Cancelled Rouleaux Cancelled Schistocytes Cancelled PT 15.4 H INR 1.4 Fibrinogen 915 H Puncture Site pCO2 pO2 HCO3 ABG pH ABG Total CO2 ABG O2 Saturation ABG Base Excess Harpreet Test ABG Potassium A-a O2 Difference Respiratory Index Sodium Chloride Glucose Lactate Vent Mode Mechanical Rate FiO2 Tidal Volume PEEP Crit Value Called To Crit Value Called By Crit Value Read Back Blood Gas Notified Time Potassium Carbon Dioxide Anion Gap BUN Creatinine Est GFR ( Amer) Est GFR (Non-Af Amer) POC Glucose (mg/dL) 184 H Random Glucose Calcium Phosphorus Magnesium Total Bilirubin AST ALT Alkaline Phosphatase Total Protein Albumin Globulin Albumin/Globulin Ratio Arterial Blood Potassium Random Vancomycin Blood Type Antibody Screen Crossmatch Assessment & Plan (1) Acute respiratory failure with hypoxia Status: Acute Priority: High Comment: Continue IV Antibiotics. Continue bronchodilaotrs and IV steroids. Strict I&O. Will arrange for Bronch if left lung does not improve. Aggressive pulmonary toilet, chest PT, suctioning. Maintain aspiration precautions (2) Septic shock Status: Acute Priority: High Comment: Continue Phenylephrine for BP support, wean as tolerated. Maintain MAP 65-75. IVF hydration at 75 ml/H (3) Pancytopenia Status: Acute Priority: High Comment: Sec to oral chemo, continue neupogen. Neutropenic precution (4) Neutropenia Status: Acute Priority: High (5) Legionella pneumonia Status: Acute Comment: LegionellaPneumonia: continue doxycycline, avoid moxi due to prologed QTC interval (6) HUSSAIN (acute kidney injury) Status: Acute Comment: Acute kidney injury likely multifactorial due to circulatory failure and septic shock. Oliguria. Morning Labs showing worsening renal functions. ? Acute tubular necrosis. Hypotensive patient remain on vasopressors. IVF hydration. Monitor Input/Output, daily weights. Likely will need HD in view of continued hemodynamic instability (7) Tachycardia Status: Acute (8) Metastatic malignant neoplasm to prostate Status: Acute
--- NOTE | 2017-08-29 20:42 | CP.PCM.PN ---
Subjective - Date & Time of Evaluation Date of Evaluation: 08/29/17 Time of Evaluation: 11:00 - Subjective Subjective: clinically same Objective - Vital Signs/Intake and Output Vital Signs (last 24 hours): Temp Pulse Resp BP Pulse Ox 98.1 F 111 H 27 H 102/66 96 08/29/17 15:43 08/29/17 20:01 08/29/17 20:01 08/29/17 20:01 08/29/17 20:01 Intake and Output: 08/29/17 08/30/17 18:59 06:59 Intake Total 5186.6 158.3 Output Total 135 10 Balance 5051.6 148.3 - Medications Medications: Current Medications Acetaminophen (Tylenol 325mg Tab) 650 mg PO Q8 PRN PRN Reason: Fever >100.4 F Last Admin: 08/27/17 07:16 Dose: 650 mg Acetylcysteine (Acetylcysteine 20%) 4 ml PO Q12 RENAN Stop: 08/29/17 22:01 Last Admin: 08/29/17 09:28 Dose: 4 ml Albuterol/Ipratropium (Duoneb 3 Mg/0.5 Mg (3 Ml) Ud) 3 ml INH RQ4 RENAN Atovaquone (Mepron) 1,500 mg PO DAILY RENAN PRN Reason: Protocol Last Admin: 08/29/17 09:30 Dose: 1,500 mg Docusate Sodium (Colace) 100 mg PO DAILY [facility] Last Admin: 08/29/17 09:29 Dose: 100 mg Hydrocortisone Sodium Succinate (Solu-Cortef) 100 mg IV Q8 [facility] Last Admin: 08/29/17 13:20 Dose: 100 mg Fluconazole (Diflucan Iv 100 Mg/50 Ml Ns) 50 mls @ 100 mls/hr IVPB DAILY RENAN PRN Reason: Protocol Last Admin: 08/29/17 09:29 Dose: 100 mls/hr Propofol (Diprivan) 1,000 mg in 100 mls @ 2.218 mls/hr IV .Q24H PRN; Protocol; 5 MCG/KG/MIN PRN Reason: TITRATE PER MD ORDER Last Admin: 08/29/17 14:14 Dose: 30 mcg/kg/min, 13.308 mls/hr Dexmedetomidine HCl 200 mcg/ (Sodium Chloride) 50 mls @ 3.69 mls/hr IV TITR PRN ; Protocol; 0.2 MCG/KG/HR PRN Reason: Sedation Last Titration: 08/27/17 21:00 Dose: 0 mcg/kg/hr, 0 mls/hr Sodium Bicarbonate 75 meq/ (Sodium Chloride) 1,075 mls @ 75 mls/hr IV .[id number] [facility] Last Admin: 08/29/17 17:37 Dose: 75 mls/hr Phenylephrine HCl 30 mg/ (Dextrose) 253 mls @ 20.23 mls/hr IV .[id number] PRN; Protocol; 40 MCG/MIN PRN Reason: TITRATE PER MD ORDER Last Titration: 08/29/17 18:00 Dose: 80 mcg/min, 40.48 mls/hr Meropenem 1 gm/ Sodium (Chloride) 100 mls @ 100 mls/hr IVPB Q12H RENAN PRN Reason: Protocol Last Admin: 08/29/17 14:05 Dose: 100 mls/hr Azithromycin 500 mg/ Sodium (Chloride) 250 mls @ 250 mls/hr IVPB Q24H RENAN PRN Reason: Protocol Last Admin: 08/29/17 16:34 Dose: 250 mls/hr Insulin Aspart (Novolog) 0 unit SC Q6 RENAN PRN Reason: Protocol Last Admin: 08/29/17 17:44 Dose: 1 u Mupirocin (Bactroban 2% Nasal) 0.25 gm JORDON BID RENAN Stop: 08/30/17 18:01 Last Admin: 08/29/17 17:36 Dose: 0.25 gm Pantoprazole Sodium (Protonix Inj) 40 mg IVP Q12H [facility] Last Admin: 08/29/17 13:18 Dose: 40 mg Senna/Docusate Sodium (Senokot S 50 Mg-8.6 Mg) 1 tab GT DAILY [facility] Last Admin: 08/29/17 11:01 Dose: 1 tab - Labs Labs: 08/29/17 12:59 08/29/17 06:31 PT 15.4 SECONDS (9.7-12.2) H 08/29/17 12:59 INR 1.4 08/29/17 12:59 APTT 39 SECONDS (21-34) H 08/27/17 16:02 - Constitutional Appears: Well - Head Exam Head Exam: ATRAUMATIC, NORMAL INSPECTION, NORMOCEPHALIC - Eye Exam Eye Exam: EOMI, Normal appearance, PERRL Pupil Exam: NORMAL ACCOMODATION, PERRL - ENT Exam ENT Exam: Mucous Membranes Moist, Normal Exam - Neck Exam Neck Exam: Full ROM, Normal Inspection. absent: Lymphadenopathy - Respiratory Exam Respiratory Exam: Decreased Breath Sounds - Cardiovascular Exam Cardiovascular Exam: REGULAR RHYTHM, +S1, +S2 - GI/Abdominal Exam GI & Abdominal Exam: Soft, Diminished Bowel Sounds - Rectal Exam Rectal Exam: Deferred Assessment and Plan (1) Acute respiratory failure Status: Acute (2) Anemia Status: Acute (3) Chronic pain Status: Acute (4) Esophagitis Status: Acute (5) Gastritis Status: Acute (6) Pancytopenia Status: Acute (7) Abdominal pain Status: Acute (8) Chest discomfort Status: Acute (9) Constipation Status: Acute (10) Intractable abdominal pain Status: Acute (11) Metastatic malignant neoplasm to prostate Status: Acute (12) Neutropenia Status: Acute - Assessment and Plan (Free Text) Plan: Spoke to the family at length yesterday Continue following up with ID Follow-up with the pulmonary Yesterday spoke to Joanne and family member also at the bedside Also spoke to the family member who called on the phone Also continue with the IV Diflucan po mepron IV meropenem IV azithromycin WBCs still 0.22 I discussed with the nurse Patient is getting G-CSF Follow-up with the hemo-
--- NOTE | 2017-08-29 23:27 | CP.PCM.PN ---
Subjective - Date & Time of Evaluation Date of Evaluation: 08/29/17 Time of Evaluation: 23:26 - Subjective Subjective: CHIEF COMPLAINTS TODAY : -ICU BED 5 AFEBRILE , INTUBATED, HYPOTENSIVE ON PRESSORS REMAINS PANCYTOPENIC LETHARGIC. +VE LEGIONELLA URINARY AG +VE MRSA NARES ROS.ON OBSERVATION HEENT : N. Resp : ON VENTILATOR , NO wheezing ,pleuritic CP ,or hemoptysis Cardio : No anginal CP, PND, orthopnea, palpitation GI : NO n/v ,diarrhea or GI bleeding . CURATOR OF COLLECTIONS : No headache, vertigo, focal deficit. Musculoskel : No joint swelling , Derm : No rash Psych : Normal affect. Ext : No swelling ,calf pain PE. Pt. is LETHARGIC in no distress.ON VENTILATOR V.S As noted in the chart Head ,ear nose,throat and eyes : Normal.SCLERA ANICTERIC Neck : Supple with normal carotids. Lungs: RHONCHI LT SIDE Heart : S1 & S2 REGULAR . No murmur. Abd : SOFT, NON TENDER , with normal bowel sounds. Neuro : Moves all ext. with no localized deficit. Ext : No edema with intact pulses.Non tender calves Derm : No rashes or decubitus ulcer. LABS/RADIOLOGY: wbc 0.3, H/H DROPPED TO 6.7/19.3. pLATELETS 22 CREATININE 3.0 /bun 57 VANCO RANDOM 18.1 vANCO ON HOLD LFTS TOTAL BILI 5.4 , TRANSAMINASES IMPROVING. BLOOD CULTURES 08/23/17 -VE X TO DATE URINE CULTURES 08/27/17 -VE GROWTH CXR 08/28/17WORSENING DENSE CONSOLIDATION LEFT UPPER LOBE. RT IJV CXR 08/25/17 NEW LT PERIHILAR INFILTRATE ASSESSMENT NEUTROPENIC FEVERS /MULTIORGAN FAILURE NEW PNEUMONIA - LEGIONELLA ANTIGEN POSITIVE ( ? LEGIONELLA PNEUMOPHILLA ) METASTATIC CA PROSTRATE. HX OF ESOPHAGITIS VI S/P EGD ABDOMINAL PAIN-IMPROVING ABNORMAL LIVER FUNCTION TESTS-SHOCK LIVER VS CHOLESTASIS VS LEGIONELLOSIS INCREASING AZOTEMIA SEC SHOCK /PLAN : ON MULTIPLE ANTIBIOTICS HOLD iv VANCO FOR TODAY. VANCO TROUGH >15.0/AND RENAL FUNCTION DETERIORATING .ON iv MERREM 1 G EVERY 12 HOURLY. 08/26/17 .D/C DOXYCYCLINE. PT GOT 1 DOSE IV AVELOX LAST EVENING START IV AZITHROMICIN 500MG IV PB [id number] FOR BETTER LEGIONELLA COVERAGE, MONITOR QT -PROLONGATION. DISCUSSED WITH PHARMACY, DO NOT HAVE IV LEVAQUIN/OR IV AVELOX CONTINUE FLUCONAZOLE 100 MG EVERY 24 HOURLY. 08/26/17 CONTINUE ATOVAQUONE 1500 MG od DAILY. 08/27/17 CONTINUE iv STEROIDS ORDERED BY INTENSIVISTS.100 MG EVERY 8 HOURLY NEUTROPENIC PRECAUTIONS. PULMONARY TOILET. F/U SPUTUM FOR LEGINELLA CULTURE. (SENT 08/27/[address] Luciano CARLTON ) F/U LFTS /RENAL FUNCTIONS CLOSELY. CASE DISCUSSED W STAFF.PROGNOSIS GRAVE. Objective - Vital Signs/Intake and Output Vital Signs (last 24 hours): Temp Pulse Resp BP Pulse Ox 98.6 F 108 H 26 H 81/48 L 98 08/29/17 20:00 08/29/17 22:06 08/29/17 22:06 08/29/17 22:06 08/29/17 22:06 Intake and Output: 08/29/17 08/30/17 18:59 06:59 Intake Total 5186.6 855.2 Output Total 135 50 Balance 5051.6 805.2 - Medications Medications: Current Medications Acetaminophen (Tylenol 325mg Tab) 650 mg PO Q8 PRN PRN Reason: Fever >100.4 F Last Admin: 08/27/17 07:16 Dose: 650 mg Albuterol/Ipratropium (Duoneb 3 Mg/0.5 Mg (3 Ml) Ud) 3 ml INH RQ4 RENAN Atovaquone (Mepron) 1,500 mg PO DAILY RENAN PRN Reason: Protocol Last Admin: 08/29/17 09:30 Dose: 1,500 mg Docusate Sodium (Colace) 100 mg PO DAILY [facility] Last Admin: 08/29/17 09:29 Dose: 100 mg Famotidine (Pepcid) 20 mg IVP DAILY RENAN Hydrocortisone Sodium Succinate (Solu-Cortef) 100 mg IV Q8 [facility] Last Admin: 08/29/17 21:28 Dose: 100 mg Fluconazole (Diflucan Iv 100 Mg/50 Ml Ns) 50 mls @ 100 mls/hr IVPB DAILY RENAN PRN Reason: Protocol Last Admin: 08/29/17 09:29 Dose: 100 mls/hr Propofol (Diprivan) 1,000 mg in 100 mls @ 2.218 mls/hr IV .Q24H PRN; Protocol; 5 MCG/KG/MIN PRN Reason: TITRATE PER MD ORDER Last Admin: 08/29/17 21:29 Dose: 30 mcg/kg/min, 13.308 mls/hr Dexmedetomidine HCl 200 mcg/ (Sodium Chloride) 50 mls @ 3.69 mls/hr IV TITR PRN ; Protocol; 0.2 MCG/KG/HR PRN Reason: Sedation Last Titration: 08/27/17 21:00 Dose: 0 mcg/kg/hr, 0 mls/hr Sodium Bicarbonate 75 meq/ (Sodium Chloride) 1,075 mls @ 75 mls/hr IV .[id number] RENAN Last Admin: 08/29/17 17:37 Dose: 75 mls/hr Phenylephrine HCl 30 mg/ (Dextrose) 253 mls @ 20.23 mls/hr IV .[id number] PRN; Protocol; 40 MCG/MIN PRN Reason: TITRATE PER MD ORDER Last Admin: 08/29/17 22:06 Dose: 90 mcg/min, 45.54 mls/hr Meropenem 1 gm/ Sodium (Chloride) 100 mls @ 100 mls/hr IVPB Q12H RENAN PRN Reason: Protocol Last Admin: 08/29/17 14:05 Dose: 100 mls/hr Azithromycin 500 mg/ Sodium (Chloride) 250 mls @ 250 mls/hr IVPB Q24H RENAN PRN Reason: Protocol Last Admin: 08/29/17 16:34 Dose: 250 mls/hr Insulin Aspart (Novolog) 0 unit SC Q6 RENAN PRN Reason: Protocol Last Admin: 08/29/17 17:44 Dose: 1 u Lorazepam (Ativan) 1 mg IVP Q6H PRN PRN Reason: Anxiety Last Admin: 08/29/17 21:29 Dose: 1 mg Mupirocin (Bactroban 2% Nasal) 0.25 gm JORDON BID RENAN Stop: 08/30/17 18:01 Last Admin: 08/29/17 17:36 Dose: 0.25 gm Senna/Docusate Sodium (Senokot S 50 Mg-8.6 Mg) 1 tab GT DAILY [facility] Last Admin: 08/29/17 11:01 Dose: 1 tab Sennosides (Senokot Tab) 8.6 mg NG DAILY RENAN - Labs Labs: 08/29/17 12:59 08/29/17 06:31 PT 15.4 SECONDS (9.7-12.2) H 08/29/17 12:59 INR 1.4 08/29/17 12:59 APTT 39 SECONDS (21-34) H 08/27/17 16:02 Assessment and Plan (1) Pancytopenia Status: Acute (2) Abdominal pain Status: Acute (3) Esophagitis Status: Acute (4) Metastatic malignant neoplasm to prostate Status: Acute
[2017-08-30] MEDS: Meropenem 1 GM in Sodium Chloride 0.9% 100 ML IVPB SCH ×2 (03:00→14:24)
[2017-08-30] MEDS: Phenylephrine 30 MG in Dextrose 5% In Water 250 ML IV PRN ×3 (03:40→17:12)
[2017-08-30] MEDS: Propofol 10 mg/ml 1,000 MG/100 ML VIAL IV PRN ×2 (04:46→17:38)
[2017-08-30] MEDS: (Novolog) Insulin Aspart, Recombinant 100 u/ml 10 ml vial SC SCH ×4 (05:10→17:39)
[2017-08-30 05:40] LABS: ABG ALLEN TEST POS; ARTERIAL BLOOD GAS HCO3 17.8 mmol/L (21-28); ARTERIAL BLOOD GAS O2 SAT 99.6 % (95-98); ARTERIAL BLOOD GAS PCO2 38 mm/Hg (35-45); ARTERIAL BLOOD GAS PH 7.26 (7.35-7.45); ARTERIAL BLOOD GAS PO2 147 mm/Hg (80-100); ARTERIAL BLOOD GAS TCO2 18.3 mmol/L (22-28)
[2017-08-30 06:20] LABS: HEMOGLOBIN 8.8 g/dL (12.0-18.0); MEAN CELL VOLUME 85.3 fL (80.0-94.0); MEAN CORPUSCULAR HEMOGLOBIN 29.2 pg (27.0-31.0); MEAN CORPUSCULAR HGB CONC 34.3 g/dL (33.0-37.0); MEAN PLATELET VOLUME 7.6 fL (7.2-11.7); RBC 3.01 Mil/uL (4.40-5.90); RED CELL DISTRIBUTION WIDTH 18.2 % (11.5-14.5)
[2017-08-30 06:31] LABS: WHITE BLOOD COUNT 0.3 K/uL (4.8-10.8)
[2017-08-30 06:51] LABS: ALB/GLOB RATIO 1.1 (1.0-2.1); ALBUMIN 2.9 g/dL (3.5-5.0); BILIRUBIN,DIRECT 7.2 mg/dL (0.0-0.4); CALCIUM 5.5 mg/dl (8.6-10.4)
--- NOTE | 2017-08-30 08:43 | RAD ---
PROCEDURE: CHEST RADIOGRAPH, 1 VIEW 08/30/2017 at 0710 hours HISTORY: INTUBATED/ICU ROUTINE COMPARISON: Comparison made with prior chest radiograph dated 08/29/2017 at 1902 hours FINDINGS: In situ ETT, the tip of which lies approximately 5 cm above marcial. NGT is present, tip of which has not been included on this film though distal aspect does lie well below EG junction. No change right IJ central line with tip in the SVC. LUNGS: Minimal improvement previously noted dense consolidation changes seen throughout the left lung. Suspect developing diffuse infiltrate changes throughout the right lung PLEURA: No pneumothorax or pleural fluid seen. CARDIOVASCULAR: Heart size difficult to assess due to silhouetting left and to a lesser degree right cardiac borders OSSEOUS STRUCTURES: No significant abnormalities. VISUALIZED UPPER ABDOMEN: Normal. OTHER FINDINGS: None. IMPRESSION: Support lines and tubes as above. Minimal improvement previously noted dense consolidation changes seen throughout the left lung. Suspect developing diffuse infiltrate changes throughout the right lung
--- NOTE | 2017-08-30 08:45 | RAD ---
HISTORY: collapse COMPARISON: . Comparison made with chest radiograph 08/29/2017 at 0749 hours FINDINGS: In situ ETT, the tip of which lies approximately 3.5 cm above marcial. NGT is present, tip of which has not been included on this film though distal aspect does lie well below EG junction. No change right IJ central line with tip in the SVC. LUNGS: Re- demonstrated dense consolidation changes throughout the left lung. Coarsened increased interstitial markings with reticulonodular pattern PLEURA: No significant pleural effusion identified, no pneumothorax apparent. CARDIOVASCULAR: Normal. OSSEOUS STRUCTURES: No significant abnormalities. VISUALIZED UPPER ABDOMEN: Normal. OTHER FINDINGS: None. IMPRESSION: Support lines and tubes as above. Re- demonstrated dense consolidation changes throughout the left lung. Coarsened increased interstitial markings with reticulonodular pattern
[2017-08-30 08:54] LABS: EOS % 9.2 % (0.0-4.0); MONO % 35.6 % (0.0-10.0); NEUT # 0.1 K/uL (1.8-7.0); NEUT % 47.2 % (50.0-75.0)
[2017-08-30 08:55] LABS: MONO # 0.1 K/uL (0.0-0.8)
[2017-08-30] MEDS: Docusate-Senna 50 mg-8.6 mg Tab GT SCH (10:04)
[2017-08-30] MEDS: (Lantus) Insulin Glargine, Recombinant SC SCH (10:05)
[2017-08-30] MEDS: Mupirocin 2% Ointment (NASAL) NAS SCH ×2 (10:05→17:37)
[2017-08-30] MEDS: Fluconazole IV 100mg/50 ml NS 50 ML IVPB SCH (10:05)
[2017-08-30] MEDS: Atovaquone 750 mg/5 ml Susp UD PO SCH (10:05)
--- NOTE | 2017-08-30 11:12 | CP.CCUPN ---
CCU Subjective - Physician Review Subjective (Free Text): Patient with rass score -4, requested nursing to hold sedation and adjust propofol Critical Care Time Spent (in minutes): 32 CCU Objective - Vital Signs / Intake & Output Vital Signs (Last 4 hours): Vital Signs Temp Pulse Resp BP Pulse Ox 08/30/17 10:06 100/61 08/30/17 10:01 116 H 28 H 100/61 97 08/30/17 10:00 115 H 28 H 97 08/30/17 09:02 119 H 29 H 124/78 96 08/30/17 09:01 119 H 29 H 96 08/30/17 09:00 119 H 29 H 96 08/30/17 08:42 113 H 28 H 105/66 98 08/30/17 08:01 110 H 26 H 96/58 L 98 08/30/17 08:00 99.4 F 110 H 26 H 98 Intake and Output (Last 8hrs): Intake & Output 08/29/17 08/30/17 08/30/17 22:59 06:59 14:59 Intake Total 2649.4 1624.4 1136.2 Output Total 90 80 25 Balance 2559.4 1544.4 1111.2 Weight 156 lb 3.2 oz Intake: IV 353 353 303 Intake, IV Amount 1276.4 1066.4 833.2 Right Forearm 106.4 106.4 33.2 Right Internal Jugular 320 360 180 Right Medial Port 600 600 300 Right Proximal Port 320 Right Wrist 250 0 Tube Feeding 240 205 0 Blood Product 700 Apheresis Rbc Cp2d As3 Lr 325 2nd Unit [id number] Other 80 Apheresis Rbc Cp2d As3 Lr 50 2nd Unit [id number] Output: Urine 90 80 25 Urethral (Benjamin) 90 80 25 Other: # Bowel Movements 0 - Physical Exam Head: Positive for: Atraumatic, Normocephalic Respiratory/Chest: Positive for: Decreased Breath Sounds Cardiovascular: Positive for: Regular Rate and Rhythm. Negative for: Murmurs Abdomen: Positive for: Distention, Normal Bowel Sounds Upper Extremity: Positive for: Normal Inspection. Negative for: Cyanosis, Edema Lower Extremity: Positive for: Normal Inspection. Negative for: Edema Neurological: Negative for: GCS=15 Skin: Positive for: Normal Color - Medications Active Medications: Active Medications Generic Name Dose Route Start Last Admin Trade Name Freq PRN Reason Stop Dose Admin Acetaminophen 650 mg 08/22/17 16:33 08/30/17 04:18 Tylenol 325mg Tab PO 650 mg Q8 PRN Administration Fever >100.4 F Albuterol/Ipratropium 3 ml 08/29/17 08:00 Duoneb 3 Mg/0.5 Mg (3 Ml) Ud INH RQ4 RENAN Atovaquone 1,500 mg 08/27/17 13:30 08/30/17 10:05 Mepron PO 1,500 mg DAILY RENAN Administration Protocol Famotidine 20 mg 08/30/17 10:00 08/30/17 10:28 Pepcid IVP 20 mg DAILY RENAN Administration Hydrocortisone Sodium Succinate 100 mg 08/27/17 14:00 08/30/17 05:08 Solu-Cortef IV 100 mg Q8 RNEAN Administration Propofol 1,000 mg in 100 mls @ 2.218 mls/hr 08/27/17 12:38 08/30/17 09:25 Diprivan IV 15 mcg/kg/min .Q24H PRN 6.654 mls/hr TITRATE PER MD ORDER Titration Protocol 5 MCG/KG/MIN Dexmedetomidine HCl 200 mcg/ 50 mls @ 3.69 mls/hr 08/27/17 13:06 08/27/17 21: 00 Sodium Chloride IV 0 mcg/kg/hr TITR PRN 0 mls/hr Sedation Titration Protocol 0.2 MCG/KG/HR Sodium Bicarbonate 75 meq/ 1,075 mls @ 75 mls/hr 08/28/17 09:30 08/30/17 06: 57 Sodium Chloride IV 75 mls/hr .[id number] RENAN Administration Phenylephrine HCl 30 mg/ 253 mls @ 20.23 mls/hr 08/28/17 12:30 08/30/17 10:06 Dextrose IV 90 mcg/min .[id number] PRN 45.54 mls/hr TITRATE PER MD ORDER Administration Protocol 40 MCG/MIN Meropenem 1 gm/ Sodium 100 mls @ 100 mls/hr 08/29/17 03:00 08/30/17 03:00 Chloride IVPB 100 mls/hr Q12H RENAN Administration Protocol Azithromycin 500 mg/ Sodium 250 mls @ 250 mls/hr 08/29/17 17:00 08/29/17 16: 34 Chloride IVPB 250 mls/hr Q24H RENAN Administration Protocol Insulin Aspart 0 unit 08/27/17 18:00 08/30/17 05:10 Novolog SC 4 u Q6 RENAN Administration Protocol Insulin Glargine 15 unit 08/30/17 10:00 08/30/17 10:05 Lantus SC 15 unit QAM RENAN Administration Lorazepam 1 mg 08/29/17 21:13 08/29/17 21:29 Ativan IVP 1 mg Q6H PRN Administration Anxiety Mupirocin 0.25 gm 08/23/17 18:00 08/30/17 10:05 Bactroban 2% Nasal JORDON 08/30/17 18:01 0.25 gm BID RENAN Administration Senna/Docusate Sodium 1 tab 08/28/17 10:00 08/30/17 10:04 Senokot S 50 Mg-8.6 Mg GT 1 tab DAILY RENAN Administration - Patient Studies Lab Studies: Lab Studies 08/30/17 08/30/17 08/30/17 Range/Units 06:15 06:12 05:30 WBC 0.3 L* (4.8-10.8) K/uL RBC 3.01 L (4.40-5.90) Mil/uL Hgb 8.8 L (12.0-18.0) g/dL Hct 25.7 L (35.0-51.0) % MCV 85.3 D (80.0-94.0) fL MCH 29.2 (27.0-31.0) pg MCHC 34.3 (33.0-37.0) g/dL RDW 18.2 H (11.5-14.5) % Plt Count 43 L D (130-400) K/uL MPV 7.6 (7.2-11.7) fL Neut % (Auto) 47.2 L (50.0-75.0) % Lymph % (Auto) 8.0 L (20.0-40.0) % Harper % (Auto) 35.6 H (0.0-10.0) % Eos % (Auto) 9.2 H (0.0-4.0) % Baso % (Auto) 0.0 (0.0-2.0) % Neut # (Auto) 0.1 L (1.8-7.0) K/uL Lymph # (Auto) 0.0 L (1.0-4.3) K/uL Harper # (Auto) 0.1 (0.0-0.8) K/uL Eos # (Auto) 0.0 (0.0-0.7) K/uL Baso # (Auto) 0.0 (0.0-0.2) K/uL Total Counted Cancelled Neutrophils % (Manual) Cancelled Band Neutrophils % Cancelled Lymphocytes % (Manual) Cancelled Reactive Lymphs % Cancelled Monocytes % (Manual) Cancelled Eosinophils % (Manual) Cancelled Basophils % (Manual) Cancelled Metamyelocytes % Cancelled Myelocytes % Cancelled Promyelocytes % Cancelled Blast Cells % Cancelled Plasma Cell % (Manual) Cancelled Nucleated RBC % Cancelled Hypersegmented Polys Cancelled Smudge Cells Cancelled Toxic Granulation Cancelled Dohle Bodies Cancelled Vonda Rods Cancelled Platelet Estimate Cancelled Plt Clumps, EDTA Cancelled Large Platelets Cancelled Giant Platelets Cancelled RBC Morphology Cancelled Polychromasia Cancelled Hypochromasia (manual) Cancelled Poikilocytosis (manual Cancelled Basophilic Stippling Cancelled Anisocytosis (manual) Cancelled Microcytosis (manual) Cancelled Macrocytosis (manual) Cancelled Spherocytes Cancelled Sickle Cells Cancelled Target Cells Cancelled Tear Drop Cells Cancelled Ovalocytes Cancelled Stomatocytes Cancelled Helmet Cells Cancelled Mac-Fromberg Bodies Cancelled [place] Cells Cancelled Acanthocytes (Spur) Cancelled Rouleaux Cancelled Schistocytes Cancelled PT (9.7-12.2) SECONDS INR Fibrinogen (200-400) mg/dL Puncture Site Lr pCO2 38 (35-45) mm/Hg pO2 147 H (80-100) mm/Hg HCO3 17.8 L (21-28) mmol/L ABG pH 7.26 L (7.35-7.45) ABG Total CO2 18.3 L (22-28) mmol/L ABG O2 Saturation 99.6 H (95-98) % ABG Base Excess -9.2 L (-2.0-3.0) mmol/L ABG Hemoglobin 9.0 L (11.7-17.4) g/dL ABG Carboxyhemoglobin 1.3 (0.5-1.5) % POC ABG HHb (Measured) 0.4 (0.0-5.0) % ABG Methemoglobin 1.0 (0.0-3.0) % Harpreet Test Pos A-a O2 Difference 305.0 mm/Hg Respiratory Index 2.1 Hgb O2 Saturation 97.3 (95.0-98.0) % Vent Mode Prvc Mechanical Rate 25 FiO2 70.0 % Tidal Volume 450 PEEP 10 Sodium 132 (132-148) mmol/L Potassium 4.5 (3.6-5.2) mmol/L Chloride 99 (98-107) mmol/L Carbon Dioxide 17 L (22-30) mmol/L Anion Gap 20 (10-20) BUN 68 H (9-20) mg/dL Creatinine 3.3 H (0.8-1.5) mg/dL Est GFR ( Amer) 23 Est GFR (Non-Af Amer) 19 POC Glucose (mg/dL) (65-110) mg/dL Random Glucose 261 H (75-110) mg/dL Calcium 5.5 L* (8.6-10.4) mg/dl Phosphorus 4.3 (2.5-4.5) mg/dL Magnesium 2.2 (1.6-2.3) mg/dL Total Bilirubin 7.4 H (0.2-1.3) mg/dL Direct Bilirubin 7.2 H (0.0-0.4) mg/dL AST 69 H D (17-59) U/L ALT 102 H D (21-72) U/L Alkaline Phosphatase 188 H (38-126) U/L Total Protein 5.6 L (6.3-8.3) g/dL Albumin 2.9 L (3.5-5.0) g/dL Globulin 2.7 (2.2-3.9) gm/dL Albumin/Globulin Ratio 1.1 (1.0-2.1) Blood Type Antibody Screen Crossmatch 08/30/17 08/29/17 08/29/17 Range/Units 05:07 23:37 21:13 WBC (4.8-10.8) K/uL RBC (4.40-5.90) Mil/uL Hgb (12.0-18.0) g/dL Hct (35.0-51.0) % MCV (80.0-94.0) fL MCH (27.0-31.0) pg MCHC (33.0-37.0) g/dL RDW (11.5-14.5) % Plt Count (130-400) K/uL MPV (7.2-11.7) fL Neut % (Auto) (50.0-75.0) % Lymph % (Auto) (20.0-40.0) % Harper % (Auto) (0.0-10.0) % Eos % (Auto) (0.0-4.0) % Baso % (Auto) (0.0-2.0) % Neut # (Auto) (1.8-7.0) K/uL Lymph # (Auto) (1.0-4.3) K/uL Harper # (Auto) (0.0-0.8) K/uL Eos # (Auto) (0.0-0.7) K/uL Baso # (Auto) (0.0-0.2) K/uL Total Counted Neutrophils % (Manual) Band Neutrophils % Lymphocytes % (Manual) Reactive Lymphs % Monocytes % (Manual) Eosinophils % (Manual) Basophils % (Manual) Metamyelocytes % Myelocytes % Promyelocytes % Blast Cells % Plasma Cell % (Manual) Nucleated RBC % Hypersegmented Polys Smudge Cells Toxic Granulation Dohle Bodies Vonda Rods Platelet Estimate Plt Clumps, EDTA Large Platelets Giant Platelets RBC Morphology Polychromasia Hypochromasia (manual) Poikilocytosis (manual Basophilic Stippling Anisocytosis (manual) Microcytosis (manual) Macrocytosis (manual) Spherocytes Sickle Cells Target Cells Tear Drop Cells Ovalocytes Stomatocytes Helmet Cells Mac-Fromberg Bodies [place] Cells Acanthocytes (Spur) Rouleaux Schistocytes PT (9.7-12.2) SECONDS INR Fibrinogen (200-400) mg/dL Puncture Site pCO2 (35-45) mm/Hg pO2 (80-100) mm/Hg HCO3 (21-28) mmol/L ABG pH (7.35-7.45) ABG Total CO2 (22-28) mmol/L ABG O2 Saturation (95-98) % ABG Base Excess (-2.0-3.0) mmol/L ABG Hemoglobin (11.7-17.4) g/dL ABG Carboxyhemoglobin (0.5-1.5) % POC ABG HHb (Measured) (0.0-5.0) % ABG Methemoglobin (0.0-3.0) % Harpreet Test A-a O2 Difference mm/Hg Respiratory Index Hgb O2 Saturation (95.0-98.0) % Vent Mode Mechanical Rate FiO2 % Tidal Volume PEEP Sodium (132-148) mmol/L Potassium (3.6-5.2) mmol/L Chloride (98-107) mmol/L Carbon Dioxide (22-30) mmol/L Anion Gap (10-20) BUN (9-20) mg/dL Creatinine (0.8-1.5) mg/dL Est GFR ( Amer) Est GFR (Non-Af Amer) POC Glucose (mg/dL) 321 H 225 H 231 H (65-110) mg/dL Random Glucose (75-110) mg/dL Calcium (8.6-10.4) mg/dl Phosphorus (2.5-4.5) mg/dL Magnesium (1.6-2.3) mg/dL Total Bilirubin (0.2-1.3) mg/dL Direct Bilirubin (0.0-0.4) mg/dL AST (17-59) U/L ALT (21-72) U/L Alkaline Phosphatase (38-126) U/L Total Protein (6.3-8.3) g/dL Albumin (3.5-5.0) g/dL Globulin (2.2-3.9) gm/dL Albumin/Globulin Ratio (1.0-2.1) Blood Type Antibody Screen Crossmatch 08/29/17 08/29/17 08/29/17 Range/Units 17:40 12:59 12:59 WBC 0.2 L* (4.8-10.8) K/uL RBC 2.58 L (4.40-5.90) Mil/uL Hgb 7.9 L (12.0-18.0) g/dL Hct 22.7 L (35.0-51.0) % MCV 88.0 (80.0-94.0) fL MCH 30.6 (27.0-31.0) pg MCHC 34.8 (33.0-37.0) g/dL RDW 16.8 H (11.5-14.5) % Plt Count 23 L* (130-400) K/uL MPV 8.3 (7.2-11.7) fL Neut % (Auto) 8.0 L (50.0-75.0) % Lymph % (Auto) 12.0 L (20.0-40.0) % Harper % (Auto) 77.6 H (0.0-10.0) % Eos % (Auto) 2.4 (0.0-4.0) % Baso % (Auto) 0.0 (0.0-2.0) % Neut # (Auto) 0.0 L (1.8-7.0) K/uL Lymph # (Auto) 0.0 L (1.0-4.3) K/uL Harper # (Auto) 0.2 (0.0-0.8) K/uL Eos # (Auto) 0.0 (0.0-0.7) K/uL Baso # (Auto) 0.0 (0.0-0.2) K/uL Total Counted Cancelled Neutrophils % (Manual) Cancelled Band Neutrophils % Cancelled Lymphocytes % (Manual) Cancelled Reactive Lymphs % Cancelled Monocytes % (Manual) Cancelled Eosinophils % (Manual) Cancelled Basophils % (Manual) Cancelled Metamyelocytes % Cancelled Myelocytes % Cancelled Promyelocytes % Cancelled Blast Cells % Cancelled Plasma Cell % (Manual) Cancelled Nucleated RBC % Cancelled Hypersegmented Polys Cancelled Smudge Cells Cancelled Toxic Granulation Cancelled Dohle Bodies Cancelled Vonda Rods Cancelled Platelet Estimate Cancelled Plt Clumps, EDTA Cancelled Large Platelets Cancelled Giant Platelets Cancelled RBC Morphology Cancelled Polychromasia Cancelled Hypochromasia (manual) Cancelled Poikilocytosis (manual Cancelled Basophilic Stippling Cancelled Anisocytosis (manual) Cancelled Microcytosis (manual) Cancelled Macrocytosis (manual) Cancelled Spherocytes Cancelled Sickle Cells Cancelled Target Cells Cancelled Tear Drop Cells Cancelled Ovalocytes Cancelled Stomatocytes Cancelled Helmet Cells Cancelled Mac-Fromberg Bodies Cancelled Courtney Cells Cancelled Acanthocytes (Spur) Cancelled Rouleaux Cancelled Schistocytes Cancelled PT 15.4 H (9.7-12.2) SECONDS INR 1.4 Fibrinogen 915 H (200-400) mg/dL Puncture Site pCO2 (35-45) mm/Hg pO2 (80-100) mm/Hg HCO3 (21-28) mmol/L ABG pH (7.35-7.45) ABG Total CO2 (22-28) mmol/L ABG O2 Saturation (95-98) % ABG Base Excess (-2.0-3.0) mmol/L ABG Hemoglobin (11.7-17.4) g/dL ABG Carboxyhemoglobin (0.5-1.5) % POC ABG HHb (Measured) (0.0-5.0) % ABG Methemoglobin (0.0-3.0) % Harpreet Test A-a O2 Difference mm/Hg Respiratory Index Hgb O2 Saturation (95.0-98.0) % Vent Mode Mechanical Rate FiO2 % Tidal Volume PEEP Sodium (132-148) mmol/L Potassium (3.6-5.2) mmol/L Chloride (98-107) mmol/L Carbon Dioxide (22-30) mmol/L Anion Gap (10-20) BUN (9-20) mg/dL Creatinine (0.8-1.5) mg/dL Est GFR ( Amer) Est GFR (Non-Af Amer) POC Glucose (mg/dL) 184 H (65-110) mg/dL Random Glucose (75-110) mg/dL Calcium (8.6-10.4) mg/dl Phosphorus (2.5-4.5) mg/dL Magnesium (1.6-2.3) mg/dL Total Bilirubin (0.2-1.3) mg/dL Direct Bilirubin (0.0-0.4) mg/dL AST (17-59) U/L ALT (21-72) U/L Alkaline Phosphatase (38-126) U/L Total Protein (6.3-8.3) g/dL Albumin (3.5-5.0) g/dL Globulin (2.2-3.9) gm/dL Albumin/Globulin Ratio (1.0-2.1) Blood Type Antibody Screen Crossmatch 08/29/17 08/29/17 08/29/17 Range/Units 11:13 08:55 06:31 WBC (4.8-10.8) K/uL RBC (4.40-5.90) Mil/uL Hgb (12.0-18.0) g/dL Hct (35.0-51.0) % MCV (80.0-94.0) fL MCH (27.0-31.0) pg MCHC (33.0-37.0) g/dL RDW (11.5-14.5) % Plt Count (130-400) K/uL MPV (7.2-11.7) fL Neut % (Auto) 47.5 L (50.0-75.0) % Lymph % (Auto) 28.3 (20.0-40.0) % Harper % (Auto) 22.5 H (0.0-10.0) % Eos % (Auto) 1.7 (0.0-4.0) % Baso % (Auto) 0.0 (0.0-2.0) % Neut # (Auto) 0.1 L (1.8-7.0) K/uL Lymph # (Auto) 0.1 L (1.0-4.3) K/uL Harper # (Auto) 0.1 (0.0-0.8) K/uL Eos # (Auto) 0.0 (0.0-0.7) K/uL Baso # (Auto) 0.0 (0.0-0.2) K/uL Total Counted Cancelled Neutrophils % (Manual) Cancelled Band Neutrophils % Cancelled Lymphocytes % (Manual) Cancelled Reactive Lymphs % Cancelled Monocytes % (Manual) Cancelled Eosinophils % (Manual) Cancelled Basophils % (Manual) Cancelled Metamyelocytes % Cancelled Myelocytes % Cancelled Promyelocytes % Cancelled Blast Cells % Cancelled Plasma Cell % (Manual) Cancelled Nucleated RBC % Cancelled Hypersegmented Polys Cancelled Smudge Cells Cancelled Toxic Granulation Cancelled Dohle Bodies Cancelled Vonda Rods Cancelled Platelet Estimate Cancelled Plt Clumps, EDTA Cancelled Large Platelets Cancelled Giant Platelets Cancelled RBC Morphology Cancelled Polychromasia Cancelled Hypochromasia (manual) Cancelled Poikilocytosis (manual Cancelled Basophilic Stippling Cancelled Anisocytosis (manual) Cancelled Microcytosis (manual) Cancelled Macrocytosis (manual) Cancelled Spherocytes Cancelled Sickle Cells Cancelled Target Cells Cancelled Tear Drop Cells Cancelled Ovalocytes Cancelled Stomatocytes Cancelled Helmet Cells Cancelled Mac-Fromberg Bodies Cancelled Courtney Cells Cancelled Acanthocytes (Spur) Cancelled Rouleaux Cancelled Schistocytes Cancelled PT (9.7-12.2) SECONDS INR Fibrinogen (200-400) mg/dL Puncture Site pCO2 (35-45) mm/Hg pO2 (80-100) mm/Hg HCO3 (21-28) mmol/L ABG pH (7.35-7.45) ABG Total CO2 (22-28) mmol/L ABG O2 Saturation (95-98) % ABG Base Excess (-2.0-3.0) mmol/L ABG Hemoglobin (11.7-17.4) g/dL ABG Carboxyhemoglobin (0.5-1.5) % POC ABG HHb (Measured) (0.0-5.0) % ABG Methemoglobin (0.0-3.0) % Harpreet Test A-a O2 Difference mm/Hg Respiratory Index Hgb O2 Saturation (95.0-98.0) % Vent Mode Mechanical Rate FiO2 % Tidal Volume PEEP Sodium (132-148) mmol/L Potassium (3.6-5.2) mmol/L Chloride (98-107) mmol/L Carbon Dioxide (22-30) mmol/L Anion Gap (10-20) BUN (9-20) mg/dL Creatinine (0.8-1.5) mg/dL Est GFR ( Amer) Est GFR (Non-Af Amer) POC Glucose (mg/dL) 220 H (65-110) mg/dL Random Glucose (75-110) mg/dL Calcium (8.6-10.4) mg/dl Phosphorus (2.5-4.5) mg/dL Magnesium (1.6-2.3) mg/dL Total Bilirubin (0.2-1.3) mg/dL Direct Bilirubin (0.0-0.4) mg/dL AST (17-59) U/L ALT (21-72) U/L Alkaline Phosphatase (38-126) U/L Total Protein (6.3-8.3) g/dL Albumin (3.5-5.0) g/dL Globulin (2.2-3.9) gm/dL Albumin/Globulin Ratio (1.0-2.1) Blood Type O POSITIVE Antibody Screen Negative Crossmatch See Detail Laboratory Results - last 24 hr 08/29/17 08/29/17 08/29/17 06:31 08:55 11:13 WBC RBC Hgb Hct MCV MCH MCHC RDW Plt Count MPV Neut % (Auto) 47.5 L Lymph % (Auto) 28.3 Harper % (Auto) 22.5 H Eos % (Auto) 1.7 Baso % (Auto) 0.0 Neut # (Auto) 0.1 L Lymph # (Auto) 0.1 L Harper # (Auto) 0.1 Eos # (Auto) 0.0 Baso # (Auto) 0.0 Total Counted Cancelled Neutrophils % (Manual) Cancelled Band Neutrophils % Cancelled Lymphocytes % (Manual) Cancelled Reactive Lymphs % Cancelled Monocytes % (Manual) Cancelled Eosinophils % (Manual) Cancelled Basophils % (Manual) Cancelled Metamyelocytes % Cancelled Myelocytes % Cancelled Promyelocytes % Cancelled Blast Cells % Cancelled Plasma Cell % (Manual) Cancelled Nucleated RBC % Cancelled Hypersegmented Polys Cancelled Smudge Cells Cancelled Toxic Granulation Cancelled Dohle Bodies Cancelled Vonda Rods Cancelled Platelet Estimate Cancelled Plt Clumps, EDTA Cancelled Large Platelets Cancelled Giant Platelets Cancelled RBC Morphology Cancelled Polychromasia Cancelled Hypochromasia (manual) Cancelled Poikilocytosis (manual Cancelled Basophilic Stippling Cancelled Anisocytosis (manual) Cancelled Microcytosis (manual) Cancelled Macrocytosis (manual) Cancelled Spherocytes Cancelled Sickle Cells Cancelled Target Cells Cancelled Tear Drop Cells Cancelled Ovalocytes Cancelled Stomatocytes Cancelled Helmet Cells Cancelled Mac-Fromberg Bodies Cancelled Courtney Cells Cancelled Acanthocytes (Spur) Cancelled Rouleaux Cancelled Schistocytes Cancelled PT INR Fibrinogen Puncture Site pCO2 pO2 HCO3 ABG pH ABG Total CO2 ABG O2 Saturation ABG Base Excess ABG Hemoglobin ABG Carboxyhemoglobin POC ABG HHb (Measured) ABG Methemoglobin Harpreet Test A-a O2 Difference Respiratory Index Hgb O2 Saturation Vent Mode Mechanical Rate FiO2 Tidal Volume PEEP Sodium Potassium Chloride Carbon Dioxide Anion Gap BUN Creatinine Est GFR ( Amer) Est GFR (Non-Af Amer) POC Glucose (mg/dL) 220 H Random Glucose Calcium Phosphorus Magnesium Total Bilirubin Direct Bilirubin AST ALT Alkaline Phosphatase Total Protein Albumin Globulin Albumin/Globulin Ratio Blood Type O POSITIVE Antibody Screen Negative Crossmatch See Detail 08/29/17 08/29/17 08/29/17 12:59 12:59 17:40 WBC 0.2 L* RBC 2.58 L Hgb 7.9 L Hct 22.7 L MCV 88.0 MCH 30.6 MCHC 34.8 RDW 16.8 H Plt Count 23 L* MPV 8.3 Neut % (Auto) 8.0 L Lymph % (Auto) 12.0 L Harper % (Auto) 77.6 H Eos % (Auto) 2.4 Baso % (Auto) 0.0 Neut # (Auto) 0.0 L Lymph # (Auto) 0.0 L Harper # (Auto) 0.2 Eos # (Auto) 0.0 Baso # (Auto) 0.0 Total Counted Cancelled Neutrophils % (Manual) Cancelled Band Neutrophils % Cancelled Lymphocytes % (Manual) Cancelled Reactive Lymphs % Cancelled Monocytes % (Manual) Cancelled Eosinophils % (Manual) Cancelled Basophils % (Manual) Cancelled Metamyelocytes % Cancelled Myelocytes % Cancelled Promyelocytes % Cancelled Blast Cells % Cancelled Plasma Cell % (Manual) Cancelled Nucleated RBC % Cancelled Hypersegmented Polys Cancelled Smudge Cells Cancelled Toxic Granulation Cancelled Dohle Bodies Cancelled Vonda Rods Cancelled Platelet Estimate Cancelled Plt Clumps, EDTA Cancelled Large Platelets Cancelled Giant Platelets Cancelled RBC Morphology Cancelled Polychromasia Cancelled Hypochromasia (manual) Cancelled Poikilocytosis (manual Cancelled Basophilic Stippling Cancelled Anisocytosis (manual) Cancelled Microcytosis (manual) Cancelled Macrocytosis (manual) Cancelled Spherocytes Cancelled Sickle Cells Cancelled Target Cells Cancelled Tear Drop Cells Cancelled Ovalocytes Cancelled Stomatocytes Cancelled Helmet Cells Cancelled Mac-Fromberg Bodies Cancelled [place] Cells Cancelled Acanthocytes (Spur) Cancelled Rouleaux Cancelled Schistocytes Cancelled PT 15.4 H INR 1.4 Fibrinogen 915 H Puncture Site pCO2 pO2 HCO3 ABG pH ABG Total CO2 ABG O2 Saturation ABG Base Excess ABG Hemoglobin ABG Carboxyhemoglobin POC ABG HHb (Measured) ABG Methemoglobin Harpreet Test A-a O2 Difference Respiratory Index Hgb O2 Saturation Vent Mode Mechanical Rate FiO2 Tidal Volume PEEP Sodium Potassium Chloride Carbon Dioxide Anion Gap BUN Creatinine Est GFR ( Amer) Est GFR (Non-Af Amer) POC Glucose (mg/dL) 184 H Random Glucose Calcium Phosphorus Magnesium Total Bilirubin Direct Bilirubin AST ALT Alkaline Phosphatase Total Protein Albumin Globulin Albumin/Globulin Ratio Blood Type Antibody Screen Crossmatch 08/29/17 08/29/17 08/30/17 21:13 23:37 05:07 WBC RBC Hgb Hct MCV MCH MCHC RDW Plt Count MPV Neut % (Auto) Lymph % (Auto) Harper % (Auto) Eos % (Auto) Baso % (Auto) Neut # (Auto) Lymph # (Auto) Harper # (Auto) Eos # (Auto) Baso # (Auto) Total Counted Neutrophils % (Manual) Band Neutrophils % Lymphocytes % (Manual) Reactive Lymphs % Monocytes % (Manual) Eosinophils % (Manual) Basophils % (Manual) Metamyelocytes % Myelocytes % Promyelocytes % Blast Cells % Plasma Cell % (Manual) Nucleated RBC % Hypersegmented Polys Smudge Cells Toxic Granulation Dohle Bodies Vonda Rods Platelet Estimate Plt Clumps, EDTA Large Platelets Giant Platelets RBC Morphology Polychromasia Hypochromasia (manual) Poikilocytosis (manual Basophilic Stippling Anisocytosis (manual) Microcytosis (manual) Macrocytosis (manual) Spherocytes Sickle Cells Target Cells Tear Drop Cells Ovalocytes Stomatocytes Helmet Cells Mac-Fromberg Bodies [place] Cells Acanthocytes (Spur) Rouleaux Schistocytes PT INR Fibrinogen Puncture Site pCO2 pO2 HCO3 ABG pH ABG Total CO2 ABG O2 Saturation ABG Base Excess ABG Hemoglobin ABG Carboxyhemoglobin POC ABG HHb (Measured) ABG Methemoglobin Harpreet Test A-a O2 Difference Respiratory Index Hgb O2 Saturation Vent Mode Mechanical Rate FiO2 Tidal Volume PEEP Sodium Potassium Chloride Carbon Dioxide Anion Gap BUN Creatinine Est GFR ( Amer) Est GFR (Non-Af Amer) POC Glucose (mg/dL) 231 H 225 H 321 H Random Glucose Calcium Phosphorus Magnesium Total Bilirubin Direct Bilirubin AST ALT Alkaline Phosphatase Total Protein Albumin Globulin Albumin/Globulin Ratio Blood Type Antibody Screen Crossmatch 08/30/17 08/30/17 08/30/17 05:30 06:12 06:15 WBC 0.3 L* RBC 3.01 L Hgb 8.8 L Hct 25.7 L MCV 85.3 D MCH 29.2 MCHC 34.3 RDW 18.2 H Plt Count 43 L D MPV 7.6 Neut % (Auto) 47.2 L Lymph % (Auto) 8.0 L Harper % (Auto) 35.6 H Eos % (Auto) 9.2 H Baso % (Auto) 0.0 Neut # (Auto) 0.1 L Lymph # (Auto) 0.0 L Harper # (Auto) 0.1 Eos # (Auto) 0.0 Baso # (Auto) 0.0 Total Counted Cancelled Neutrophils % (Manual) Cancelled Band Neutrophils % Cancelled Lymphocytes % (Manual) Cancelled Reactive Lymphs % Cancelled Monocytes % (Manual) Cancelled Eosinophils % (Manual) Cancelled Basophils % (Manual) Cancelled Metamyelocytes % Cancelled Myelocytes % Cancelled Promyelocytes % Cancelled Blast Cells % Cancelled Plasma Cell % (Manual) Cancelled Nucleated RBC % Cancelled Hypersegmented Polys Cancelled Smudge Cells Cancelled Toxic Granulation Cancelled Dohle Bodies Cancelled Vonda Rods Cancelled Platelet Estimate Cancelled Plt Clumps, EDTA Cancelled Large Platelets Cancelled Giant Platelets Cancelled RBC Morphology Cancelled Polychromasia Cancelled Hypochromasia (manual) Cancelled Poikilocytosis (manual Cancelled Basophilic Stippling Cancelled Anisocytosis (manual) Cancelled Microcytosis (manual) Cancelled Macrocytosis (manual) Cancelled Spherocytes Cancelled Sickle Cells Cancelled Target Cells Cancelled Tear Drop Cells Cancelled Ovalocytes Cancelled Stomatocytes Cancelled Helmet Cells Cancelled Mac-Fromberg Bodies Cancelled Courtney Cells Cancelled Acanthocytes (Spur) Cancelled Rouleaux Cancelled Schistocytes Cancelled PT INR Fibrinogen Puncture Site Lr pCO2 38 pO2 147 H HCO3 17.8 L ABG pH 7.26 L ABG Total CO2 18.3 L ABG O2 Saturation 99.6 H ABG Base Excess -9.2 L ABG Hemoglobin 9.0 L ABG Carboxyhemoglobin 1.3 POC ABG HHb (Measured) 0.4 ABG Methemoglobin 1.0 Harpreet Test Pos A-a O2 Difference 305.0 Respiratory Index 2.1 Hgb O2 Saturation 97.3 Vent Mode Prvc Mechanical Rate 25 FiO2 70.0 Tidal Volume 450 PEEP 10 Sodium 132 Potassium 4.5 Chloride 99 Carbon Dioxide 17 L Anion Gap 20 BUN 68 H Creatinine 3.3 H Est GFR ( Amer) 23 Est GFR (Non-Af Amer) 19 POC Glucose (mg/dL) Random Glucose 261 H Calcium 5.5 L* Phosphorus 4.3 Magnesium 2.2 Total Bilirubin 7.4 H Direct Bilirubin 7.2 H AST 69 H D ALT 102 H D Alkaline Phosphatase 188 H Total Protein 5.6 L Albumin 2.9 L Globulin 2.7 Albumin/Globulin Ratio 1.1 Blood Type Antibody Screen Crossmatch Fingerstick Blood Sugar Results: 321 Critical Care Progress Note - Nutrition Nutrition: Nutrition Category Date Time Status Heart Healthy Diet [DIET] Diets 08/18/17 Lunch Active Assessment/Plan - Assessment and Plan (Free Text) Assessment: 1 y/o male with pmx of prostate ca with mets to lung being treated with XRT and oral chemo. Patient was being treated with mucomyst inhalation and develoepd hypoxic respiratory failure with significant sputum production. ICU evaluated patent at bedside on 6th floor. Patient was being treated with IVF and IV antibiotics. -Acute hypoxic respiratory failure: suspect 2nd large VQ mismatch, despite left lung white out, FiO2 decreased to 60%. Continue ventilation to keep spo2 >92 and pH b/w 7.35-7.45, continue bronchodilaotrs and IV steroids, peep 10, left select suction catheter, copious secretions -Septic shock: continue IVF at 75 ml/kg and continue pressros to keep MAP >65, serial lactic -Pneumonia: legionella; continue doxycycline, avoid moxi as QTC increased, afb pending, continue rx as per ID -Chronic systolic heart failure: check echo, bnp >2000, echo pending -HUSSAIN: monitor urine output, goasl of U/O more than 0.5 ml/kg/hr, avoid nephrotoxic drugs, nephorlogy consult -anemia: 2nd anemia of chronic disease, check fecal occult blood, transfuse blood today to keep hb/hct > 8/24 -neutropenia: 2nd oral chemo, continue neupogen -GI: (+)residual 60 ml, no BMs, continue [id number] ml/hr -thrombocytopenia: hb decreased, suspect Gi tract, will transfuse 1 unit platelet -Transaminitis: suspect 2nd shock, avoid hepatotoxic drugs, US liver did not reveal signs of cholecystitis, Gi follow up requested -check and replace electrolytes -skin: supplemental MVI/vitamin C + turn q2 hrs -dvt ppx: scds (thrombocytopenia) -PUD ppx protonix -Goals of care discussed with family cc time 32 minutes
--- NOTE | 2017-08-30 12:11 | CP.PCM.CON ---
History of Present Illness - History of Present Illness History of Present Illness: Nephrology Consultation Note: Assessment: critical oligoanuric Acute Kidney Injury (N17.9) likely ATN due to septic shock Neutropenic fever/pancytopenia with Left lung pneumonia with legionella abnormal LFT with hyperbilirubinemia metastatic prostate CA on chemo/radiation acute respi failure s/p mechanical ventilation combined respi and metabolic acidosis Hypocalcemia Plan No acute need for renal replacement therapy at this time but may need soon, will need close follow up. maintain hemodynamic stable. hold ACEI/ARB due to HUSSAIN Monitor Input/Output, daily weights and renal function with basic metabolic panel agree with Bicarb drip as ordered agree with IV calcium supplements pt on stress dose of steroids. also getting Granix ID, heme/onc following Dose meds/antibiotics for reduced GFR<10. Avoid fleets enema/magnesium based laxatives. Avoid nephrotoxins/NSAIDs/ iodinated contrast (unless needed emergently) Glycemic control Further work up/management as per primary team Thanks for allowing me to participate in care of your patient. Will follow patient with you. Please call if any Qs. had d/w team and family Dr Cristi Pandey Office: [phone] Chief Complaint; unable to obtain reason for consult: HUSSAIN HPI: Pt is a 61 M with hx of metastatic prostate CA on chemo/radiation therapy admitted with neutropenic fever and pneumonia complicated by septic shock requiring IV pressors and respi failure, intubated transferred to ICU. renal consult for HUSSAIN evaluation no knwon OTC/herbal meds or NSAIDs No known recent iodinated contrast exposure. Noted obvious episodes of low BP ( 81/48). ROS: unable to obtain Physical Examination: vent setting PEEP 10 FiO2 60% TV 450 General Appearance: Comfortable, in no acute respiratory distress, ill appearing Vitals reviewed and noted as below Head; Atraumatic, normocephalic. ENT: orally intubated EYES: Pupils are equal, round and reactive to light accommodation. Sclera is icteric. Neck; supple no lymphadenopathy, no thyromegaly or bruit Lungs: Normal respiratory rate/effort. Breath sounds bilateral equal and clear anteriorly Heart: Normal rate. s1s2 normal. No rub or gallop. Extremities: no edema. No varicose veins Neurological: Patient is sedated Skin: Warm and dry. Normal turgor. No rash. Palpitation: Normal elasticity for age Abdomen: Abdomen is soft. Bowel sounds +. There is no abdominal tenderness, no guarding/rigidity no organomegaly Psych: unable MSK: no joint tenderness or swelling. Digits and nails normal, no deformity : kidney or bladder not palpable. has montemayor catheter, no scrotal swelling Labs/imaging reviewed. Past medical history, past surgical history, family history, social history, allergy reviewed and noted as below Family hx: no hx of CKD. Rest non-contributory work up: renal sono: WNL UA no protein Past Patient History - Past Medical History & Family History Past Medical History?: Yes - Past Social History Smoking Status: Never Smoked Chewing Tobacco Use: No Cigar Use: No Alcohol: None - CARDIAC Hx Cardiac Disorders: No - PULMONARY Hx Respiratory Disorders: No - NEUROLOGICAL Hx Neurological Disorder: No - HEENT Hx HEENT Problems: No - RENAL Hx Chronic Kidney Disease: No - ENDOCRINE/METABOLIC Hx Endocrine Disorders: No - HEMATOLOGICAL/ONCOLOGICAL Hx Blood Transfusions: Yes Hx Blood Transfusion Reaction: No - INTEGUMENTARY Hx Dermatological Problems: No - MUSCULOSKELETAL/RHEUMATOLOGICAL Hx Musculoskeletal Disorders: No Hx Falls: No Hx Unsteady Gait: No - GASTROINTESTINAL Hx Gastrointestinal Disorders: No - GENITOURINARY/GYNECOLOGICAL Hx Genitourinary Disorders: Yes Hx Prostate Cancer: Yes (radiation) - PSYCHIATRIC Hx Substance Use: No - SURGICAL HISTORY Hx Surgeries: No - ANESTHESIA Hx Anesthesia: No Hx Anesthesia Reactions: No Hx Malignant Hyperthermia: No Meds Allergies/Adverse Reactions: Allergies Allergy/AdvReac Type Severity Reaction Status Date / Time No Known Allergies Allergy Verified 08/09/17 11:24 - Medications Medications: Current Medications Acetaminophen (Tylenol 325mg Tab) 650 mg PO Q8 PRN PRN Reason: Fever >100.4 F Last Admin: 08/30/17 04:18 Dose: 650 mg Albuterol/Ipratropium (Duoneb 3 Mg/0.5 Mg (3 Ml) Ud) 3 ml INH RQ4 RENAN Atovaquone (Mepron) 1,500 mg PO DAILY RENAN PRN Reason: Protocol Last Admin: 08/30/17 10:05 Dose: 1,500 mg Famotidine (Pepcid) 20 mg IVP DAILY [facility] Last Admin: 08/30/17 10:28 Dose: 20 mg Hydrocortisone Sodium Succinate (Solu-Cortef) 100 mg IV Q8 RENAN Last Admin: 08/30/17 05:08 Dose: 100 mg Propofol (Diprivan) 1,000 mg in 100 mls @ 2.218 mls/hr IV .Q24H PRN; Protocol; 5 MCG/KG/MIN PRN Reason: TITRATE PER MD ORDER Last Titration: 08/30/17 09:25 Dose: 15 mcg/kg/min, 6.654 mls/hr Dexmedetomidine HCl 200 mcg/ (Sodium Chloride) 50 mls @ 3.69 mls/hr IV TITR PRN ; Protocol; 0.2 MCG/KG/HR PRN Reason: Sedation Last Titration: 08/27/17 21:00 Dose: 0 mcg/kg/hr, 0 mls/hr Sodium Bicarbonate 75 meq/ (Sodium Chloride) 1,075 mls @ 75 mls/hr IV .[id number] [facility] Last Admin: 08/30/17 06:57 Dose: 75 mls/hr Phenylephrine HCl 30 mg/ (Dextrose) 253 mls @ 20.23 mls/hr IV .[id number] PRN; Protocol; 40 MCG/MIN PRN Reason: TITRATE PER MD ORDER Last Admin: 08/30/17 10:06 Dose: 90 mcg/min, 45.54 mls/hr Meropenem 1 gm/ Sodium (Chloride) 100 mls @ 100 mls/hr IVPB Q12H RENAN PRN Reason: Protocol Last Admin: 08/30/17 03:00 Dose: 100 mls/hr Azithromycin 500 mg/ Sodium (Chloride) 250 mls @ 250 mls/hr IVPB Q24H RENAN PRN Reason: Protocol Last Admin: 08/29/17 16:34 Dose: 250 mls/hr Insulin Aspart (Novolog) 0 unit SC Q6 RENAN PRN Reason: Protocol Last Admin: 08/30/17 05:10 Dose: 4 u Insulin Glargine (Lantus) 15 unit SC QAM [facility] Last Admin: 08/30/17 10:05 Dose: 15 unit Lorazepam (Ativan) 1 mg IVP Q6H PRN PRN Reason: Anxiety Last Admin: 08/29/17 21:29 Dose: 1 mg Mupirocin (Bactroban 2% Nasal) 0.25 gm JORDON BID [facility] Stop: 08/30/17 18:01 Last Admin: 08/30/17 10:05 Dose: 0.25 gm Senna/Docusate Sodium (Senokot S 50 Mg-8.6 Mg) 1 tab GT DAILY [facility]NAN Last Admin: 08/30/17 10:04 Dose: 1 tab Results - Vital Signs Recent Vital Signs: Last Vital Signs Temp 99.4 F 08/30/17 08:00 Pulse 113 H 08/30/17 11:01 Resp 27 H 08/30/17 11:01 BP 104/64 08/30/17 11:01 Pulse Ox 97 08/30/17 11:01 - Labs Result Diagrams: 08/30/17 06:15 08/30/17 06:12 Labs: Laboratory Results - last 24 hr 08/29/17 08/29/17 08/29/17 08:55 11:13 12:59 WBC 0.2 L* RBC 2.58 L Hgb 7.9 L Hct 22.7 L MCV 88.0 MCH 30.6 MCHC 34.8 RDW 16.8 H Plt Count 23 L* MPV 8.3 Neut % (Auto) 8.0 L Lymph % (Auto) 12.0 L [place] % (Auto) 77.6 H Eos % (Auto) 2.4 Baso % (Auto) 0.0 Neut # (Auto) 0.0 L Lymph # (Auto) 0.0 L [place] # (Auto) 0.2 Eos # (Auto) 0.0 Baso # (Auto) 0.0 Total Counted Cancelled Neutrophils % (Manual) Cancelled Band Neutrophils % Cancelled Lymphocytes % (Manual) Cancelled Reactive Lymphs % Cancelled Monocytes % (Manual) Cancelled Eosinophils % (Manual) Cancelled Basophils % (Manual) Cancelled Metamyelocytes % Cancelled Myelocytes % Cancelled Promyelocytes % Cancelled Blast Cells % Cancelled Plasma Cell % (Manual) Cancelled Nucleated RBC % Cancelled Hypersegmented Polys Cancelled Smudge Cells Cancelled Toxic Granulation Cancelled Dohle Bodies Cancelled Vonda Rods Cancelled Platelet Estimate Cancelled Plt Clumps, EDTA Cancelled Large Platelets Cancelled Giant Platelets Cancelled RBC Morphology Cancelled Polychromasia Cancelled Hypochromasia (manual) Cancelled Poikilocytosis (manual Cancelled Basophilic Stippling Cancelled Anisocytosis (manual) Cancelled Microcytosis (manual) Cancelled Macrocytosis (manual) Cancelled Spherocytes Cancelled Sickle Cells Cancelled Target Cells Cancelled Tear Drop Cells Cancelled Ovalocytes Cancelled Stomatocytes Cancelled Helmet Cells Cancelled Mac-Niota Bodies Cancelled Courtney Cells Cancelled Acanthocytes (Spur) Cancelled Rouleaux Cancelled Schistocytes Cancelled PT INR Fibrinogen Puncture Site pCO2 pO2 HCO3 ABG pH ABG Total CO2 ABG O2 Saturation ABG Base Excess ABG Hemoglobin ABG Carboxyhemoglobin POC ABG HHb (Measured) ABG Methemoglobin Harpreet Test A-a O2 Difference Respiratory Index Hgb O2 Saturation Vent Mode Mechanical Rate FiO2 Tidal Volume PEEP Sodium Potassium Chloride Carbon Dioxide Anion Gap BUN Creatinine Est GFR ( Amer) Est GFR (Non-Af Amer) POC Glucose (mg/dL) 220 H Random Glucose Calcium Phosphorus Magnesium Total Bilirubin Direct Bilirubin AST ALT Alkaline Phosphatase Total Protein Albumin Globulin Albumin/Globulin Ratio Blood Type O POSITIVE Antibody Screen Negative Crossmatch See Detail 08/29/17 08/29/17 08/29/17 12:59 17:40 21:13 WBC RBC Hgb Hct MCV MCH MCHC RDW Plt Count MPV Neut % (Auto) Lymph % (Auto) Platte % (Auto) Eos % (Auto) Baso % (Auto) Neut # (Auto) Lymph # (Auto) [place] # (Auto) Eos # (Auto) Baso # (Auto) Total Counted Neutrophils % (Manual) Band Neutrophils % Lymphocytes % (Manual) Reactive Lymphs % Monocytes % (Manual) Eosinophils % (Manual) Basophils % (Manual) Metamyelocytes % Myelocytes % Promyelocytes % Blast Cells % Plasma Cell % (Manual) Nucleated RBC % Hypersegmented Polys Smudge Cells Toxic Granulation Dohle Bodies Vonda Rods Platelet Estimate Plt Clumps, EDTA Large Platelets Giant Platelets RBC Morphology Polychromasia Hypochromasia (manual) Poikilocytosis (manual Basophilic Stippling Anisocytosis (manual) Microcytosis (manual) Macrocytosis (manual) Spherocytes Sickle Cells Target Cells Tear Drop Cells Ovalocytes Stomatocytes Helmet Cells Mac-Niota Bodies Courtney Cells Acanthocytes (Spur) Rouleaux Schistocytes PT 15.4 H INR 1.4 Fibrinogen 915 H Puncture Site pCO2 pO2 HCO3 ABG pH ABG Total CO2 ABG O2 Saturation ABG Base Excess ABG Hemoglobin ABG Carboxyhemoglobin POC ABG HHb (Measured) ABG Methemoglobin Harpreet Test A-a O2 Difference Respiratory Index Hgb O2 Saturation Vent Mode Mechanical Rate FiO2 Tidal Volume PEEP Sodium Potassium Chloride Carbon Dioxide Anion Gap BUN Creatinine Est GFR ( Amer) Est GFR (Non-Af Amer) POC Glucose (mg/dL) 184 H 231 H Random Glucose Calcium Phosphorus Magnesium Total Bilirubin Direct Bilirubin AST ALT Alkaline Phosphatase Total Protein Albumin Globulin Albumin/Globulin Ratio Blood Type Antibody Screen Crossmatch 08/29/17 08/30/17 08/30/17 23:37 05:07 05:30 WBC RBC Hgb Hct MCV MCH MCHC RDW Plt Count MPV Neut % (Auto) Lymph % (Auto) [place] % (Auto) Eos % (Auto) Baso % (Auto) Neut # (Auto) Lymph # (Auto) [place] # (Auto) Eos # (Auto) Baso # (Auto) Total Counted Neutrophils % (Manual) Band Neutrophils % Lymphocytes % (Manual) Reactive Lymphs % Monocytes % (Manual) Eosinophils % (Manual) Basophils % (Manual) Metamyelocytes % Myelocytes % Promyelocytes % Blast Cells % Plasma Cell % (Manual) Nucleated RBC % Hypersegmented Polys Smudge Cells Toxic Granulation Dohle Bodies Vonda Rods Platelet Estimate Plt Clumps, EDTA Large Platelets Giant Platelets RBC Morphology Polychromasia Hypochromasia (manual) Poikilocytosis (manual Basophilic Stippling Anisocytosis (manual) Microcytosis (manual) Macrocytosis (manual) Spherocytes Sickle Cells Target Cells Tear Drop Cells Ovalocytes Stomatocytes Helmet Cells Mac-Niota Bodies Mayo Cells Acanthocytes (Spur) Rouleaux Schistocytes PT INR Fibrinogen Puncture Site Lr pCO2 38 pO2 147 H HCO3 17.8 L ABG pH 7.26 L ABG Total CO2 18.3 L ABG O2 Saturation 99.6 H ABG Base Excess -9.2 L ABG Hemoglobin 9.0 L ABG Carboxyhemoglobin 1.3 POC ABG HHb (Measured) 0.4 ABG Methemoglobin 1.0 Harpreet Test Pos A-a O2 Difference 305.0 Respiratory Index 2.1 Hgb O2 Saturation 97.3 Vent Mode Prvc Mechanical Rate 25 FiO2 70.0 Tidal Volume 450 PEEP 10 Sodium Potassium Chloride Carbon Dioxide Anion Gap BUN Creatinine Est GFR ( Amer) Est GFR (Non-Af Amer) POC Glucose (mg/dL) 225 H 321 H Random Glucose Calcium Phosphorus Magnesium Total Bilirubin Direct Bilirubin AST ALT Alkaline Phosphatase Total Protein Albumin Globulin Albumin/Globulin Ratio Blood Type Antibody Screen Crossmatch 08/30/17 08/30/17 06:12 06:15 WBC 0.3 L* RBC 3.01 L Hgb 8.8 L Hct 25.7 L MCV 85.3 D MCH 29.2 MCHC 34.3 RDW 18.2 H Plt Count 43 L D MPV 7.6 Neut % (Auto) 47.2 L Lymph % (Auto) 8.0 L [place] % (Auto) 35.6 H Eos % (Auto) 9.2 H Baso % (Auto) 0.0 Neut # (Auto) 0.1 L Lymph # (Auto) 0.0 L [place] # (Auto) 0.1 Eos # (Auto) 0.0 Baso # (Auto) 0.0 Total Counted Cancelled Neutrophils % (Manual) Cancelled Band Neutrophils % Cancelled Lymphocytes % (Manual) Cancelled Reactive Lymphs % Cancelled Monocytes % (Manual) Cancelled Eosinophils % (Manual) Cancelled Basophils % (Manual) Cancelled Metamyelocytes % Cancelled Myelocytes % Cancelled Promyelocytes % Cancelled Blast Cells % Cancelled Plasma Cell % (Manual) Cancelled Nucleated RBC % Cancelled Hypersegmented Polys Cancelled Smudge Cells Cancelled Toxic Granulation Cancelled Dohle Bodies Cancelled Vonda Rods Cancelled Platelet Estimate Cancelled Plt Clumps, EDTA Cancelled Large Platelets Cancelled Giant Platelets Cancelled RBC Morphology Cancelled Polychromasia Cancelled Hypochromasia (manual) Cancelled Poikilocytosis (manual Cancelled Basophilic Stippling Cancelled Anisocytosis (manual) Cancelled Microcytosis (manual) Cancelled Macrocytosis (manual) Cancelled Spherocytes Cancelled Sickle Cells Cancelled Target Cells Cancelled Tear Drop Cells Cancelled Ovalocytes Cancelled Stomatocytes Cancelled Helmet Cells Cancelled Mac-Niota Bodies Cancelled Courtney Cells Cancelled Acanthocytes (Spur) Cancelled Rouleaux Cancelled Schistocytes Cancelled PT INR Fibrinogen Puncture Site pCO2 pO2 HCO3 ABG pH ABG Total CO2 ABG O2 Saturation ABG Base Excess ABG Hemoglobin ABG Carboxyhemoglobin POC ABG HHb (Measured) ABG Methemoglobin Harpreet Test A-a O2 Difference Respiratory Index Hgb O2 Saturation Vent Mode Mechanical Rate FiO2 Tidal Volume PEEP Sodium 132 Potassium 4.5 Chloride 99 Carbon Dioxide 17 L Anion Gap 20 BUN 68 H Creatinine 3.3 H Est GFR ( Amer) 23 Est GFR (Non-Af Amer) 19 POC Glucose (mg/dL) Random Glucose 261 H Calcium 5.5 L* Phosphorus 4.3 Magnesium 2.2 Total Bilirubin 7.4 H Direct Bilirubin 7.2 H AST 69 H D ALT 102 H D Alkaline Phosphatase 188 H Total Protein 5.6 L Albumin 2.9 L Globulin 2.7 Albumin/Globulin Ratio 1.1 Blood Type Antibody Screen Crossmatch
--- NOTE | 2017-08-30 14:34 | CP.PCM.PN ---
Subjective - Date & Time of Evaluation Date of Evaluation: 08/30/17 Time of Evaluation: 11:40 - Subjective Subjective: clinically same Objective - Vital Signs/Intake and Output Vital Signs (last 24 hours): Temp Pulse Resp BP Pulse Ox 99.8 F H 119 H 29 H 114/73 96 08/30/17 12:00 08/30/17 14:01 08/30/17 14:01 08/30/17 14:01 08/30/17 14:01 Intake and Output: 08/30/17 08/30/17 06:59 18:59 Intake Total 2479.6 1742.6 Output Total 130 40 Balance 2349.6 1702.6 - Medications Medications: Current Medications Acetaminophen (Tylenol 325mg Tab) 650 mg PO Q8 PRN PRN Reason: Fever >100.4 F Last Admin: 08/30/17 04:18 Dose: 650 mg Albuterol/Ipratropium (Duoneb 3 Mg/0.5 Mg (3 Ml) Ud) 3 ml INH RQ4 RENAN Atovaquone (Mepron) 1,500 mg PO DAILY RENAN PRN Reason: Protocol Last Admin: 08/30/17 10:05 Dose: 1,500 mg Famotidine (Pepcid) 20 mg IVP DAILY [facility] Last Admin: 08/30/17 10:28 Dose: 20 mg Hydrocortisone Sodium Succinate (Solu-Cortef) 100 mg IV Q8 [facility] Last Admin: 08/30/17 14:24 Dose: 100 mg Propofol (Diprivan) 1,000 mg in 100 mls @ 2.218 mls/hr IV .Q24H PRN; Protocol; 5 MCG/KG/MIN PRN Reason: TITRATE PER MD ORDER Last Titration: 08/30/17 09:25 Dose: 15 mcg/kg/min, 6.654 mls/hr Dexmedetomidine HCl 200 mcg/ (Sodium Chloride) 50 mls @ 3.69 mls/hr IV TITR PRN ; Protocol; 0.2 MCG/KG/HR PRN Reason: Sedation Last Titration: 08/27/17 21:00 Dose: 0 mcg/kg/hr, 0 mls/hr Sodium Bicarbonate 75 meq/ (Sodium Chloride) 1,075 mls @ 75 mls/hr IV .[id number] [facility] Last Admin: 08/30/17 06:57 Dose: 75 mls/hr Phenylephrine HCl 30 mg/ (Dextrose) 253 mls @ 20.23 mls/hr IV .[id number] PRN; Protocol; 40 MCG/MIN PRN Reason: TITRATE PER MD ORDER Last Admin: 08/30/17 10:06 Dose: 90 mcg/min, 45.54 mls/hr Meropenem 1 gm/ Sodium (Chloride) 100 mls @ 100 mls/hr IVPB Q12H RENAN PRN Reason: Protocol Last Admin: 08/30/17 14:24 Dose: 100 mls/hr Azithromycin 500 mg/ Sodium (Chloride) 250 mls @ 250 mls/hr IVPB Q24H RENAN PRN Reason: Protocol Last Admin: 08/29/17 16:34 Dose: 250 mls/hr Insulin Aspart (Novolog) 0 unit SC Q6 RENAN PRN Reason: Protocol Last Admin: 08/30/17 12:38 Dose: 1 u Insulin Glargine (Lantus) 15 unit SC QAM [facility] Last Admin: 08/30/17 10:05 Dose: 15 unit Lorazepam (Ativan) 1 mg IVP Q6H PRN PRN Reason: Anxiety Last Admin: 08/29/17 21:29 Dose: 1 mg Mupirocin (Bactroban 2% Nasal) 0.25 gm JORDON BID RENAN Stop: 08/30/17 18:01 Last Admin: 08/30/17 10:05 Dose: 0.25 gm Senna/Docusate Sodium (Senokot S 50 Mg-8.6 Mg) 1 tab GT DAILY [facility] Last Admin: 08/30/17 10:04 Dose: 1 tab - Labs Labs: 08/30/17 06:15 08/30/17 06:12 PT 15.4 SECONDS (9.7-12.2) H 08/29/17 12:59 INR 1.4 08/29/17 12:59 APTT 39 SECONDS (21-34) H 08/27/17 16:02 - Constitutional Appears: Well - Head Exam Head Exam: ATRAUMATIC, NORMAL INSPECTION, NORMOCEPHALIC - Eye Exam Eye Exam: EOMI, Normal appearance, PERRL Pupil Exam: NORMAL ACCOMODATION, PERRL - ENT Exam ENT Exam: Mucous Membranes Moist, Normal Exam - Neck Exam Neck Exam: Full ROM, Normal Inspection. absent: Lymphadenopathy - Respiratory Exam Respiratory Exam: Decreased Breath Sounds - Cardiovascular Exam Cardiovascular Exam: REGULAR RHYTHM, +S1, +S2 - GI/Abdominal Exam GI & Abdominal Exam: Soft, Diminished Bowel Sounds - Rectal Exam Rectal Exam: Deferred Assessment and Plan (1) Acute respiratory failure Status: Acute (2) Anemia Status: Acute (3) Chronic pain Status: Acute (4) Esophagitis Status: Acute (5) Gastritis Status: Acute (6) Pancytopenia Status: Acute (7) Abdominal pain Status: Acute (8) Chest discomfort Status: Acute (9) Constipation Status: Acute (10) Intractable abdominal pain Status: Acute (11) Metastatic malignant neoplasm to prostate Status: Acute (12) Neutropenia Status: Acute
[2017-08-30] MEDS: Azithromycin 500 MG in Sodium Chloride 0.9% 250 ML IVPB SCH (17:37)
[2017-08-30] MEDS: Acetaminophen 650mg/20.3ml solution UD PO PRN (21:05)
--- NOTE | 2017-08-30 21:23 | CARD ---
APPROVED REPORT EKG Measurement Heart [id number] <Conclusion> Sinus tachycardia Possible Left atrial enlargement Low voltage QRS Misplaced electrodes V4 to V6 Please repeat Abnormal ECG
[2017-08-31] MEDS: (Novolog) Insulin Aspart, Recombinant 100 u/ml 10 ml vial SC SCH ×4 (00:15→17:36)
[2017-08-31] MEDS: Meropenem 1 GM in Sodium Chloride 0.9% 100 ML IVPB SCH ×2 (03:15→15:06)
[2017-08-31] MEDS: Phenylephrine 30 MG in Dextrose 5% In Water 250 ML IV PRN ×2 (03:18→15:55)
[2017-08-31 05:48] LABS: ABG ALLEN TEST POS; ARTERIAL BLOOD GAS HCO3 18.4 mmol/L (21-28); ARTERIAL BLOOD GAS O2 SAT 99.3 % (95-98); ARTERIAL BLOOD GAS PCO2 35 mm/Hg (35-45); ARTERIAL BLOOD GAS PO2 130 mm/Hg (80-100); ARTERIAL BLOOD GAS TCO2 18.3 mmol/L (22-28)
[2017-08-31 06:37] LABS: HEMOGLOBIN 8.9 g/dL (12.0-18.0); MEAN CELL VOLUME 84.8 fL (80.0-94.0); MEAN CORPUSCULAR HEMOGLOBIN 28.9 pg (27.0-31.0); MEAN CORPUSCULAR HGB CONC 34.1 g/dL (33.0-37.0); MEAN PLATELET VOLUME 7.7 fL (7.2-11.7); RBC 3.07 Mil/uL (4.40-5.90); RED CELL DISTRIBUTION WIDTH 18.2 % (11.5-14.5)
[2017-08-31 06:38] LABS: ALB/GLOB RATIO 0.9 (1.0-2.1); ALBUMIN 2.5 g/dL (3.5-5.0); CALCIUM 5.1 mg/dl (8.6-10.4)
[2017-08-31 06:39] LABS: WHITE BLOOD COUNT 0.5 K/uL (4.8-10.8)
[2017-08-31 06:50] LABS: INR 1.4; PROTHROMBIN TIME 14.9 SECONDS (9.7-12.2)
[2017-08-31] MEDS: Propofol 10 mg/ml 1,000 MG/100 ML VIAL IV PRN (09:57)
[2017-08-31] MEDS: (Lantus) Insulin Glargine, Recombinant SC SCH (09:57)
[2017-08-31] MEDS: Atovaquone 750 mg/5 ml Susp UD PO SCH (09:58)
[2017-08-31] MEDS: Docusate-Senna 50 mg-8.6 mg Tab GT SCH (09:58)
[2017-08-31 10:24] LABS: EOS % 0.2 % (0.0-4.0); LYMPH # 0.3 K/uL (1.0-4.3); LYMPH % 75.8 % (20.0-40.0); MONO # 0.1 K/uL (0.0-0.8); MONO % 12.9 % (0.0-10.0); NEUT # 0.1 K/uL (1.8-7.0); NEUT % 11.1 % (50.0-75.0)
--- NOTE | 2017-08-31 11:03 | RAD ---
HISTORY: congestion COMPARISON: Chest radiograph dated 08/30/2017. FINDINGS: LUNGS: Stable near complete dense left lung consolidations. Right lung grossly clear. PLEURA: No significant pleural effusion identified, no pneumothorax apparent. CARDIOVASCULAR: Cardiomediastinal silhouette cannot be adequately evaluated secondary to adjacent, obscuring lung pathology. OSSEOUS STRUCTURES: Unchanged. VISUALIZED UPPER ABDOMEN: Normal. OTHER FINDINGS: Endotracheal and enteric tubes, unchanged. Right internal jugular access central venous catheter, unchanged. IMPRESSION: Stable tubes and lines. Stable appearance of near-complete dense left lung consolidations. No significant interval change.
--- NOTE | 2017-08-31 12:08 | CP.PCM.PN ---
Subjective - Date & Time of Evaluation Date of Evaluation: 08/31/17 Time of Evaluation: 12:06 - Subjective Subjective: Nephrology Consultation Note: Assessment: critical oligoanuric Acute Kidney Injury (N17.9) likely ATN due to septic shock Neutropenic fever/pancytopenia with Left lung pneumonia with legionella abnormal LFT with hyperbilirubinemia metastatic prostate CA on chemo/radiation acute respi failure s/p mechanical ventilation combined respi and metabolic acidosis Hypocalcemia, hyponatremia Plan renal replacement therapy initiation d/w family and ICU team, all agreed and consent obtained. pros/cons of dialysis d/w daughter. please arrange for dialysis access and plan for HD initiation thereafter maintain hemodynamic stable. hold ACEI/ARB due to HUSSAIN Monitor Input/Output, daily weights and renal function with basic metabolic panel agree with Bicarb drip as ordered agree with IV calcium supplements pt on stress dose of steroids. also getting Granix ID, heme/onc following Dose meds/antibiotics for reduced GFR<10. Avoid fleets enema/magnesium based laxatives. Avoid nephrotoxins/NSAIDs/ iodinated contrast (unless needed emergently) Glycemic control Further work up/management as per primary team Thanks for allowing me to participate in care of your patient. Will follow patient with you. Please call if any Qs. had d/w team and family Dr Cristi Pandey Office: [phone] Chief Complaint; unable to obtain reason for consult: HUSSAIN HPI: Pt is a 61 M with hx of metastatic prostate CA on chemo/radiation therapy admitted with neutropenic fever and pneumonia complicated by septic shock requiring IV pressors and respi failure, intubated transferred to ICU. renal consult for HUSSAIN evaluation no knwon OTC/herbal meds or NSAIDs No known recent iodinated contrast exposure. Noted obvious episodes of low BP ( 81/48). ROS: unable to obtain Physical Examination: vent setting PEEP 8 FiO2 60% TV 450 General Appearance: Comfortable, in no acute respiratory distress, ill appearing Vitals reviewed and noted as below Head; Atraumatic, normocephalic. ENT: orally intubated EYES: Pupils are equal, round and reactive to light accommodation. Sclera is icteric. Neck; supple no lymphadenopathy, no thyromegaly or bruit Lungs: Normal respiratory rate/effort. Breath sounds bilateral equal with basal crales Heart: Normal rate. s1s2 normal. No rub or gallop. Extremities: no edema. No varicose veins Neurological: Patient is sedated Skin: Warm and dry. Normal turgor. No rash. Palpitation: Normal elasticity for age Abdomen: Abdomen is soft. Bowel sounds +. There is no abdominal tenderness, no guarding/rigidity no organomegaly Psych: unable MSK: no joint tenderness or swelling. Digits and nails normal, no deformity : kidney or bladder not palpable. has montemayor catheter, no scrotal swelling Labs/imaging reviewed. Past medical history, past surgical history, family history, social history, allergy reviewed and noted as below Family hx: no hx of CKD. Rest non-contributory work up: renal sono: WNL UA no protein Objective - Vital Signs/Intake and Output Vital Signs (last 24 hours): Temp Pulse Resp BP Pulse Ox 99.3 F 112 H 29 H 108/60 97 08/31/17 07:51 08/31/17 11:00 08/31/17 11:00 08/31/17 10:59 08/31/17 11:00 Intake and Output: 08/31/17 08/31/17 06:59 18:59 Intake Total 1779.2 799.7 Output Total 360 65 Balance 1419.2 734.7 - Medications Medications: Current Medications Acetaminophen (Tylenol 650mg/20.3ml Solution Ud) 650 mg PO Q8 PRN PRN Reason: Fever >100.4 F Last Admin: 08/30/17 21:05 Dose: 650 mg Albuterol/Ipratropium (Duoneb 3 Mg/0.5 Mg (3 Ml) Ud) 3 ml INH RQ4 RENAN Atovaquone (Mepron) 1,500 mg PO DAILY RENAN PRN Reason: Protocol Last Admin: 08/31/17 09:58 Dose: 1,500 mg Famotidine (Pepcid) 20 mg IVP DAILY RENAN Last Admin: 08/31/17 09:58 Dose: 20 mg Hydrocortisone Sodium Succinate (Solu-Cortef) 50 mg IV Q8 RENAN Propofol (Diprivan) 1,000 mg in 100 mls @ 2.218 mls/hr IV .Q24H PRN; Protocol; 5 MCG/KG/MIN PRN Reason: TITRATE PER MD ORDER Last Titration: 08/31/17 11:05 Dose: 12 mcg/kg/min, 5.323 mls/hr Phenylephrine HCl 30 mg/ (Dextrose) 253 mls @ 20.23 mls/hr IV .[id number] PRN; Protocol; 40 MCG/MIN PRN Reason: TITRATE PER MD ORDER Last Titration: 08/31/17 11:25 Dose: 49.4 mcg/min, 25 mls/hr Meropenem 1 gm/ Sodium (Chloride) 100 mls @ 100 mls/hr IVPB Q12H RENAN PRN Reason: Protocol Last Admin: 08/31/17 03:15 Dose: 100 mls/hr Azithromycin 500 mg/ Sodium (Chloride) 250 mls @ 250 mls/hr IVPB Q24H RENAN PRN Reason: Protocol Last Admin: 08/30/17 17:37 Dose: 250 mls/hr Sodium Bicarbonate 75 meq/ (Sodium Chloride) 1,075 mls @ 50 mls/hr IV .[id number] RENAN Last Admin: 08/31/17 11:17 Dose: 50 mls/hr Vasopressin 40 units/ Sodium (Chloride) 40 mls @ 0.6 mls/hr IV .Q24H RENAN; 0.01 UNITS/MIN PRN Reason: Protocol Calcium Gluconate 2,000 mg/ (Sodium Chloride) 270 mls @ 135 mls/hr IVPB ONCE ONE PRN Reason: Per Protocol Stop: 08/31/17 14:29 Insulin Aspart (Novolog) 0 unit SC Q6 RENAN PRN Reason: Protocol Last Admin: 08/31/17 05:50 Dose: Not Given Insulin Glargine (Lantus) 15 unit SC QAM [facility] Last Admin: 08/31/17 09:57 Dose: 15 unit Lorazepam (Ativan) 1 mg IVP Q6H PRN PRN Reason: Anxiety Last Admin: 08/29/17 21:29 Dose: 1 mg Senna/Docusate Sodium (Senokot S 50 Mg-8.6 Mg) 1 tab GT DAILY [facility] Last Admin: 08/31/17 09:58 Dose: 1 tab Vitamin B Complex/Vit C/Folic Acid (Nephro-Chauncey) 1 tab PO 0800 RENAN - Labs Labs: 08/31/17 06:15 08/31/17 06:15 PT 14.9 SECONDS (9.7-12.2) H 08/31/17 06:15 INR 1.4 08/31/17 06:15 APTT 28 SECONDS (21-34) 08/31/17 06:15
--- NOTE | 2017-08-31 12:26 | CP.CCUPN ---
CCU Subjective - Physician Review Subjective (Free Text): 61 yo male with PMHx of metastatic prostate cancer to bones presented with abdominal pain. He was admitted to the ICU in hypoxic respiratory distress 2/2 left sided PNA. Pt seen and examined at bedside this morning. Unable to obtain ROS as pt is intubated. Urine output ~11ml/hr CCU Objective - Vital Signs / Intake & Output Vital Signs (Last 4 hours): Vital Signs Temp Pulse Resp BP Pulse Ox 08/31/17 12:00 100.3 F H 08/31/17 11:19 112 H 31 H 121/66 97 08/31/17 11:00 112 H 29 H 97 08/31/17 10:59 111 H 30 H 108/60 97 08/31/17 10:58 112 H 29 H 97 08/31/17 10:49 112 H 32 H 119/65 97 08/31/17 10:01 108 H 31 H 119/70 97 08/31/17 10:00 108 H 31 H 97 08/31/17 09:01 105 H 30 H 113/69 97 08/31/17 09:00 103 H 32 H 97 Intake and Output (Last 8hrs): Intake & Output 08/30/17 08/31/17 08/31/17 22:59 06:59 14:59 Intake Total 1583.8 1262.8 875.0 Output Total 100 300 80 Balance 1483.8 962.8 795.0 Weight 154 lb 3.2 oz Intake: IV 326 230 283 Intake, IV Amount 1207.8 1032.8 592.0 Right Forearm 52.8 52.8 37.0 Right Internal Jugular 305 280 180 Right Medial Port 600 600 375 Right Proximal Port 250 Right Wrist 0 100 0 Oral 50 Tube Feeding 0 0 Output: Urine 100 100 80 Urethral (Benjamin) 100 100 80 Stool 200 Other: # Bowel Movements 1 1 - Physical Exam Head: Positive for: Atraumatic, Normocephalic Pupils: Positive for: Sluggish Mouth: Positive for: Moist Mucous Membranes Respiratory/Chest: Positive for: Decreased Breath Sounds (left) Cardiovascular: Positive for: Regular Rate and Rhythm. Negative for: Murmurs Abdomen: Positive for: Distention, Normal Bowel Sounds Upper Extremity: Positive for: Normal Inspection. Negative for: Cyanosis, Edema Lower Extremity: Positive for: Normal Inspection. Negative for: Edema Neurological: Negative for: GCS=15 Skin: Positive for: Normal Color Psychiatric: Negative for: Alert - Medications Active Medications: Active Medications Generic Name Dose Route Start Last Admin Trade Name Freq PRN Reason Stop Dose Admin Acetaminophen 650 mg 08/30/17 20:45 08/30/17 21:05 Tylenol 650mg/20.3ml Solution Ud PO 650 mg Q8 PRN Administration Fever >100.4 F Albuterol/Ipratropium 3 ml 08/29/17 08:00 Duoneb 3 Mg/0.5 Mg (3 Ml) Ud INH RQ4 RENAN Atovaquone 1,500 mg 08/27/17 13:30 08/31/17 09:58 Mepron PO 1,500 mg DAILY RENAN Administration Protocol Famotidine 20 mg 08/30/17 10:00 08/31/17 09:58 Pepcid IVP 20 mg DAILY RENAN Administration Hydrocortisone Sodium Succinate 50 mg 08/31/17 14:00 Solu-Cortef IV Q8 RENAN Propofol 1,000 mg in 100 mls @ 2.218 mls/hr 08/27/17 12:38 08/31/17 11:05 Diprivan IV 12 mcg/kg/min .Q24H PRN 5.323 mls/hr TITRATE PER MD ORDER Titration Protocol 5 MCG/KG/MIN Phenylephrine HCl 30 mg/ 253 mls @ 20.23 mls/hr 08/28/17 12:30 08/31/17 11:25 Dextrose IV 49.4 mcg/min .[id number] PRN 25 mls/hr TITRATE PER MD ORDER Titration Protocol 40 MCG/MIN Meropenem 1 gm/ Sodium 100 mls @ 100 mls/hr 08/29/17 03:00 08/31/17 03:15 Chloride IVPB 100 mls/hr Q12H RENAN Administration Protocol Azithromycin 500 mg/ Sodium 250 mls @ 250 mls/hr 08/29/17 17:00 08/30/17 17: 37 Chloride IVPB 250 mls/hr Q24H RENAN Administration Protocol Sodium Bicarbonate 75 meq/ 1,075 mls @ 50 mls/hr 08/31/17 10:00 08/31/17 11: 17 Sodium Chloride IV 50 mls/hr .[id number] RENAN Administration Vasopressin 40 units/ Sodium 40 mls @ 0.6 mls/hr 08/31/17 10:00 Chloride IV .Q24H [facility] Protocol 0.01 UNITS/MIN Calcium Gluconate 2,000 mg/ 270 mls @ 135 mls/hr 08/31/17 12:30 Sodium Chloride IVPB 08/31/17 14:29 ONCE ONE Per Protocol Insulin Aspart 0 unit 08/27/17 18:00 08/31/17 05:50 Novolog SC Not Given Q6 [facility] Protocol Insulin Glargine 15 unit 08/30/17 10:00 08/31/17 09:57 Lantus SC 15 unit QAM RENAN Administration Lorazepam 1 mg 08/29/17 21:13 08/29/17 21:29 Ativan IVP 1 mg Q6H PRN Administration Anxiety Senna/Docusate Sodium 1 tab 08/28/17 10:00 08/31/17 09:58 Senokot S 50 Mg-8.6 Mg GT 1 tab DAILY RENAN Administration Vitamin B Complex/Vit C/Folic Acid 1 tab 09/01/17 08:00 Nephro-Chauncey PO 0800 RENAN - Patient Studies Lab Studies: Microbiology Studies 08/28/17 11:43 Mycobacterial Culture - Preliminary Other: Please Indicate 08/27/17 16:02 Legionella Culture - Preliminary Other: Please Indicate 08/27/17 13:47 Gram Stain - Final Sputum Sputum Culture - Final NORMAL ORAL ERIC 08/29/17 06:00 Gram Stain - Final Sputum Induced Lab Studies 08/31/17 08/31/17 08/31/17 Range/Units 11:42 06:15 06:15 WBC (4.8-10.8) K/uL RBC (4.40-5.90) Mil/uL Hgb (12.0-18.0) g/dL Hct (35.0-51.0) % MCV (80.0-94.0) fL MCH (27.0-31.0) pg MCHC (33.0-37.0) g/dL RDW (11.5-14.5) % Plt Count (130-400) K/uL MPV (7.2-11.7) fL Neut % (Auto) (50.0-75.0) % Lymph % (Auto) (20.0-40.0) % [place] % (Auto) (0.0-10.0) % Eos % (Auto) (0.0-4.0) % Baso % (Auto) (0.0-2.0) % Neut # (Auto) (1.8-7.0) K/uL Lymph # (Auto) (1.0-4.3) K/uL [place] # (Auto) (0.0-0.8) K/uL Eos # (Auto) (0.0-0.7) K/uL Baso # (Auto) (0.0-0.2) K/uL Total Counted Neutrophils % (Manual) Band Neutrophils % Lymphocytes % (Manual) Reactive Lymphs % Monocytes % (Manual) Eosinophils % (Manual) Basophils % (Manual) Metamyelocytes % Myelocytes % Promyelocytes % Blast Cells % Plasma Cell % (Manual) Nucleated RBC % Hypersegmented Polys Smudge Cells Toxic Granulation Dohle Bodies Vonda Rods Platelet Estimate Plt Clumps, EDTA Large Platelets Giant Platelets RBC Morphology Polychromasia Hypochromasia (manual) Poikilocytosis (manual Basophilic Stippling Anisocytosis (manual) Microcytosis (manual) Macrocytosis (manual) Spherocytes Sickle Cells Target Cells Tear Drop Cells Ovalocytes Stomatocytes Helmet Cells Mac-Cumming Bodies Courtney Cells Acanthocytes (Spur) Rouleaux Schistocytes PT 14.9 H (9.7-12.2) SECONDS INR 1.4 APTT 28 (21-34) SECONDS Fibrinogen 814 H D (200-400) mg/dL Puncture Site pCO2 (35-45) mm/Hg pO2 (80-100) mm/Hg HCO3 (21-28) mmol/L ABG pH (7.35-7.45) ABG Total CO2 (22-28) mmol/L ABG O2 Saturation (95-98) % ABG Base Excess (-2.0-3.0) mmol/L ABG Hemoglobin (11.7-17.4) g/dL ABG Carboxyhemoglobin (0.5-1.5) % POC ABG HHb (Measured) (0.0-5.0) % ABG Methemoglobin (0.0-3.0) % Harpreet Test A-a O2 Difference mm/Hg Respiratory Index Hgb O2 Saturation (95.0-98.0) % Vent Mode Mechanical Rate FiO2 % Tidal Volume PEEP Sodium 132 (132-148) mmol/L Potassium 4.3 (3.6-5.2) mmol/L Chloride 99 (98-107) mmol/L Carbon Dioxide 19 L (22-30) mmol/L Anion Gap 19 (10-20) BUN 82 H (9-20) mg/dL Creatinine 3.7 H (0.8-1.5) mg/dL Est GFR ( Amer) 20 Est GFR (Non-Af Amer) 17 POC Glucose (mg/dL) 156 H (65-110) mg/dL Random Glucose 145 H (75-110) mg/dL Calcium 5.1 L* (8.6-10.4) mg/dl Phosphorus 4.5 (2.5-4.5) mg/dL Magnesium 2.1 (1.6-2.3) mg/dL Total Bilirubin 7.1 H (0.2-1.3) mg/dL AST 60 H (17-59) U/L ALT 63 (21-72) U/L Alkaline Phosphatase 176 H (38-126) U/L Total Protein 5.4 L (6.3-8.3) g/dL Albumin 2.5 L (3.5-5.0) g/dL Globulin 2.9 (2.2-3.9) gm/dL Albumin/Globulin Ratio 0.9 L (1.0-2.1) 08/31/17 08/31/17 08/31/17 Range/Units 06:15 05:35 05:23 WBC 0.5 L* D (4.8-10.8) K/uL RBC 3.07 L (4.40-5.90) Mil/uL Hgb 8.9 L (12.0-18.0) g/dL Hct 26.0 L (35.0-51.0) % MCV 84.8 (80.0-94.0) fL MCH 28.9 (27.0-31.0) pg MCHC 34.1 (33.0-37.0) g/dL RDW 18.2 H (11.5-14.5) % Plt Count 31 L (130-400) K/uL MPV 7.7 (7.2-11.7) fL Neut % (Auto) 11.1 L (50.0-75.0) % Lymph % (Auto) 75.8 H (20.0-40.0) % [place] % (Auto) 12.9 H (0.0-10.0) % Eos % (Auto) 0.2 (0.0-4.0) % Baso % (Auto) 0.0 (0.0-2.0) % Neut # (Auto) 0.1 L (1.8-7.0) K/uL Lymph # (Auto) 0.3 L (1.0-4.3) K/uL [place] # (Auto) 0.1 (0.0-0.8) K/uL Eos # (Auto) 0.0 (0.0-0.7) K/uL Baso # (Auto) 0.0 (0.0-0.2) K/uL Total Counted Cancelled Neutrophils % (Manual) Cancelled Band Neutrophils % Cancelled Lymphocytes % (Manual) Cancelled Reactive Lymphs % Cancelled Monocytes % (Manual) Cancelled Eosinophils % (Manual) Cancelled Basophils % (Manual) Cancelled Metamyelocytes % Cancelled Myelocytes % Cancelled Promyelocytes % Cancelled Blast Cells % Cancelled Plasma Cell % (Manual) Cancelled Nucleated RBC % Cancelled Hypersegmented Polys Cancelled Smudge Cells Cancelled Toxic Granulation Cancelled Dohle Bodies Cancelled Vonda Rods Cancelled Platelet Estimate Cancelled Plt Clumps, EDTA Cancelled Large Platelets Cancelled Giant Platelets Cancelled RBC Morphology Cancelled Polychromasia Cancelled Hypochromasia (manual) Cancelled Poikilocytosis (manual Cancelled Basophilic Stippling Cancelled Anisocytosis (manual) Cancelled Microcytosis (manual) Cancelled Macrocytosis (manual) Cancelled Spherocytes Cancelled Sickle Cells Cancelled Target Cells Cancelled Tear Drop Cells Cancelled Ovalocytes Cancelled Stomatocytes Cancelled Helmet Cells Cancelled Mac-Cumming Bodies Cancelled Courtney Cells Cancelled Acanthocytes (Spur) Cancelled Rouleaux Cancelled Schistocytes Cancelled PT (9.7-12.2) SECONDS INR APTT (21-34) SECONDS Fibrinogen (200-400) mg/dL Puncture Site Lr pCO2 35 (35-45) mm/Hg pO2 130 H (80-100) mm/Hg HCO3 18.4 L (21-28) mmol/L ABG pH 7.30 L (7.35-7.45) ABG Total CO2 18.3 L (22-28) mmol/L ABG O2 Saturation 99.3 H (95-98) % ABG Base Excess -8.4 L (-2.0-3.0) mmol/L ABG Hemoglobin 10.0 L (11.7-17.4) g/dL ABG Carboxyhemoglobin 1.3 (0.5-1.5) % POC ABG HHb (Measured) 0.7 (0.0-5.0) % ABG Methemoglobin 1.0 (0.0-3.0) % Harpreet Test Pos A-a O2 Difference 254.0 mm/Hg Respiratory Index 2.0 Hgb O2 Saturation 97.0 (95.0-98.0) % Vent Mode Prvc Mechanical Rate 25 FiO2 60.0 % Tidal Volume 450 PEEP 10 Sodium (132-148) mmol/L Potassium (3.6-5.2) mmol/L Chloride (98-107) mmol/L Carbon Dioxide (22-30) mmol/L Anion Gap (10-20) BUN (9-20) mg/dL Creatinine (0.8-1.5) mg/dL Est GFR ( Amer) Est GFR (Non-Af Amer) POC Glucose (mg/dL) 147 H (65-110) mg/dL Random Glucose (75-110) mg/dL Calcium (8.6-10.4) mg/dl Phosphorus (2.5-4.5) mg/dL Magnesium (1.6-2.3) mg/dL Total Bilirubin (0.2-1.3) mg/dL AST (17-59) U/L ALT (21-72) U/L Alkaline Phosphatase (38-126) U/L Total Protein (6.3-8.3) g/dL Albumin (3.5-5.0) g/dL Globulin (2.2-3.9) gm/dL Albumin/Globulin Ratio (1.0-2.1) 08/30/17 08/30/17 Range/Units 23:25 17:33 WBC (4.8-10.8) K/uL RBC (4.40-5.90) Mil/uL Hgb (12.0-18.0) g/dL Hct (35.0-51.0) % MCV (80.0-94.0) fL MCH (27.0-31.0) pg MCHC (33.0-37.0) g/dL RDW (11.5-14.5) % Plt Count (130-400) K/uL MPV (7.2-11.7) fL Neut % (Auto) (50.0-75.0) % Lymph % (Auto) (20.0-40.0) % [place] % (Auto) (0.0-10.0) % Eos % (Auto) (0.0-4.0) % Baso % (Auto) (0.0-2.0) % Neut # (Auto) (1.8-7.0) K/uL Lymph # (Auto) (1.0-4.3) K/uL [place] # (Auto) (0.0-0.8) K/uL Eos # (Auto) (0.0-0.7) K/uL Baso # (Auto) (0.0-0.2) K/uL Total Counted Neutrophils % (Manual) Band Neutrophils % Lymphocytes % (Manual) Reactive Lymphs % Monocytes % (Manual) Eosinophils % (Manual) Basophils % (Manual) Metamyelocytes % Myelocytes % Promyelocytes % Blast Cells % Plasma Cell % (Manual) Nucleated RBC % Hypersegmented Polys Smudge Cells Toxic Granulation Dohle Bodies Vonda Rods Platelet Estimate Plt Clumps, EDTA Large Platelets Giant Platelets RBC Morphology Polychromasia Hypochromasia (manual) Poikilocytosis (manual Basophilic Stippling Anisocytosis (manual) Microcytosis (manual) Macrocytosis (manual) Spherocytes Sickle Cells Target Cells Tear Drop Cells Ovalocytes Stomatocytes Helmet Cells Mac-Cumming Bodies Cash Cells Acanthocytes (Spur) Rouleaux Schistocytes PT (9.7-12.2) SECONDS INR APTT (21-34) SECONDS Fibrinogen (200-400) mg/dL Puncture Site pCO2 (35-45) mm/Hg pO2 (80-100) mm/Hg HCO3 (21-28) mmol/L ABG pH (7.35-7.45) ABG Total CO2 (22-28) mmol/L ABG O2 Saturation (95-98) % ABG Base Excess (-2.0-3.0) mmol/L ABG Hemoglobin (11.7-17.4) g/dL ABG Carboxyhemoglobin (0.5-1.5) % POC ABG HHb (Measured) (0.0-5.0) % ABG Methemoglobin (0.0-3.0) % Harpreet Test A-a O2 Difference mm/Hg Respiratory Index Hgb O2 Saturation (95.0-98.0) % Vent Mode Mechanical Rate FiO2 % Tidal Volume PEEP Sodium (132-148) mmol/L Potassium (3.6-5.2) mmol/L Chloride (98-107) mmol/L Carbon Dioxide (22-30) mmol/L Anion Gap (10-20) BUN (9-20) mg/dL Creatinine (0.8-1.5) mg/dL Est GFR ( Amer) Est GFR (Non-Af Amer) POC Glucose (mg/dL) 141 H 161 H (65-110) mg/dL Random Glucose (75-110) mg/dL Calcium (8.6-10.4) mg/dl Phosphorus (2.5-4.5) mg/dL Magnesium (1.6-2.3) mg/dL Total Bilirubin (0.2-1.3) mg/dL AST (17-59) U/L ALT (21-72) U/L Alkaline Phosphatase (38-126) U/L Total Protein (6.3-8.3) g/dL Albumin (3.5-5.0) g/dL Globulin (2.2-3.9) gm/dL Albumin/Globulin Ratio (1.0-2.1) Laboratory Results - last 24 hr 08/30/17 08/30/17 08/31/17 17:33 23:25 05:23 WBC RBC Hgb Hct MCV MCH MCHC RDW Plt Count MPV Neut % (Auto) Lymph % (Auto) [place] % (Auto) Eos % (Auto) Baso % (Auto) Neut # (Auto) Lymph # (Auto) [place] # (Auto) Eos # (Auto) Baso # (Auto) Total Counted Neutrophils % (Manual) Band Neutrophils % Lymphocytes % (Manual) Reactive Lymphs % Monocytes % (Manual) Eosinophils % (Manual) Basophils % (Manual) Metamyelocytes % Myelocytes % Promyelocytes % Blast Cells % Plasma Cell % (Manual) Nucleated RBC % Hypersegmented Polys Smudge Cells Toxic Granulation Dohle Bodies Vonda Rods Platelet Estimate Plt Clumps, EDTA Large Platelets Giant Platelets RBC Morphology Polychromasia Hypochromasia (manual) Poikilocytosis (manual Basophilic Stippling Anisocytosis (manual) Microcytosis (manual) Macrocytosis (manual) Spherocytes Sickle Cells Target Cells Tear Drop Cells Ovalocytes Stomatocytes Helmet Cells Mac-Cumming Bodies Cash Cells Acanthocytes (Spur) Rouleaux Schistocytes PT INR APTT Fibrinogen Puncture Site pCO2 pO2 HCO3 ABG pH ABG Total CO2 ABG O2 Saturation ABG Base Excess ABG Hemoglobin ABG Carboxyhemoglobin POC ABG HHb (Measured) ABG Methemoglobin Harpreet Test A-a O2 Difference Respiratory Index Hgb O2 Saturation Vent Mode Mechanical Rate FiO2 Tidal Volume PEEP Sodium Potassium Chloride Carbon Dioxide Anion Gap BUN Creatinine Est GFR ( Amer) Est GFR (Non-Af Amer) POC Glucose (mg/dL) 161 H 141 H 147 H Random Glucose Calcium Phosphorus Magnesium Total Bilirubin AST ALT Alkaline Phosphatase Total Protein Albumin Globulin Albumin/Globulin Ratio 08/31/17 08/31/17 08/31/17 05:35 06:15 06:15 WBC 0.5 L* D RBC 3.07 L Hgb 8.9 L Hct 26.0 L MCV 84.8 MCH 28.9 MCHC 34.1 RDW 18.2 H Plt Count 31 L MPV 7.7 Neut % (Auto) 11.1 L Lymph % (Auto) 75.8 H [place] % (Auto) 12.9 H Eos % (Auto) 0.2 Baso % (Auto) 0.0 Neut # (Auto) 0.1 L Lymph # (Auto) 0.3 L [place] # (Auto) 0.1 Eos # (Auto) 0.0 Baso # (Auto) 0.0 Total Counted Cancelled Neutrophils % (Manual) Cancelled Band Neutrophils % Cancelled Lymphocytes % (Manual) Cancelled Reactive Lymphs % Cancelled Monocytes % (Manual) Cancelled Eosinophils % (Manual) Cancelled Basophils % (Manual) Cancelled Metamyelocytes % Cancelled Myelocytes % Cancelled Promyelocytes % Cancelled Blast Cells % Cancelled Plasma Cell % (Manual) Cancelled Nucleated RBC % Cancelled Hypersegmented Polys Cancelled Smudge Cells Cancelled Toxic Granulation Cancelled Dohle Bodies Cancelled Vonda Rods Cancelled Platelet Estimate Cancelled Plt Clumps, EDTA Cancelled Large Platelets Cancelled Giant Platelets Cancelled RBC Morphology Cancelled Polychromasia Cancelled Hypochromasia (manual) Cancelled Poikilocytosis (manual Cancelled Basophilic Stippling Cancelled Anisocytosis (manual) Cancelled Microcytosis (manual) Cancelled Macrocytosis (manual) Cancelled Spherocytes Cancelled Sickle Cells Cancelled Target Cells Cancelled Tear Drop Cells Cancelled Ovalocytes Cancelled Stomatocytes Cancelled Helmet Cells Cancelled Mac-Cumming Bodies Cancelled Cash Cells Cancelled Acanthocytes (Spur) Cancelled Rouleaux Cancelled Schistocytes Cancelled PT 14.9 H INR 1.4 APTT 28 Fibrinogen 814 H D Puncture Site Lr pCO2 35 pO2 130 H HCO3 18.4 L ABG pH 7.30 L ABG Total CO2 18.3 L ABG O2 Saturation 99.3 H ABG Base Excess -8.4 L ABG Hemoglobin 10.0 L ABG Carboxyhemoglobin 1.3 POC ABG HHb (Measured) 0.7 ABG Methemoglobin 1.0 Harpreet Test Pos A-a O2 Difference 254.0 Respiratory Index 2.0 Hgb O2 Saturation 97.0 Vent Mode Prvc Mechanical Rate 25 FiO2 60.0 Tidal Volume 450 PEEP 10 Sodium Potassium Chloride Carbon Dioxide Anion Gap BUN Creatinine Est GFR ( Amer) Est GFR (Non-Af Amer) POC Glucose (mg/dL) Random Glucose Calcium Phosphorus Magnesium Total Bilirubin AST ALT Alkaline Phosphatase Total Protein Albumin Globulin Albumin/Globulin Ratio 08/31/17 08/31/17 06:15 11:42 WBC RBC Hgb Hct MCV MCH MCHC RDW Plt Count MPV Neut % (Auto) Lymph % (Auto) [place] % (Auto) Eos % (Auto) Baso % (Auto) Neut # (Auto) Lymph # (Auto) [place] # (Auto) Eos # (Auto) Baso # (Auto) Total Counted Neutrophils % (Manual) Band Neutrophils % Lymphocytes % (Manual) Reactive Lymphs % Monocytes % (Manual) Eosinophils % (Manual) Basophils % (Manual) Metamyelocytes % Myelocytes % Promyelocytes % Blast Cells % Plasma Cell % (Manual) Nucleated RBC % Hypersegmented Polys Smudge Cells Toxic Granulation Dohle Bodies Vonda Rods Platelet Estimate Plt Clumps, EDTA Large Platelets Giant Platelets RBC Morphology Polychromasia Hypochromasia (manual) Poikilocytosis (manual Basophilic Stippling Anisocytosis (manual) Microcytosis (manual) Macrocytosis (manual) Spherocytes Sickle Cells Target Cells Tear Drop Cells Ovalocytes Stomatocytes Helmet Cells Mac-Cumming Bodies Cash Cells Acanthocytes (Spur) Rouleaux Schistocytes PT INR APTT Fibrinogen Puncture Site pCO2 pO2 HCO3 ABG pH ABG Total CO2 ABG O2 Saturation ABG Base Excess ABG Hemoglobin ABG Carboxyhemoglobin POC ABG HHb (Measured) ABG Methemoglobin Harpreet Test A-a O2 Difference Respiratory Index Hgb O2 Saturation Vent Mode Mechanical Rate FiO2 Tidal Volume PEEP Sodium 132 Potassium 4.3 Chloride 99 Carbon Dioxide 19 L Anion Gap 19 BUN 82 H Creatinine 3.7 H Est GFR ( Amer) 20 Est GFR (Non-Af Amer) 17 POC Glucose (mg/dL) 156 H Random Glucose 145 H Calcium 5.1 L* Phosphorus 4.5 Magnesium 2.1 Total Bilirubin 7.1 H AST 60 H ALT 63 Alkaline Phosphatase 176 H Total Protein 5.4 L Albumin 2.5 L Globulin 2.9 Albumin/Globulin Ratio 0.9 L Fingerstick Blood Sugar Results: 147 Review of Systems - Review of Systems Systems not reviewed;Unavailable: Intubated Critical Care Progress Note - Prophylaxis GI Prophylaxis GI: Pepsid - Nutrition Nutrition: Nutrition Category Date Time Status Heart Healthy Diet [DIET] Diets 08/18/17 Lunch Active Assessment/Plan - Assessment and Plan (Free Text) Assessment: 1. Acute hypoxic respiratory failure: suspect 2nd large VQ mismatch, bipap started. Continue ventilation to keep spO2 >92 and pH b/w 7.35-7.45, continue bronchodilators and IV steroids, peep decreased to 8 2. Septic shock -decrease IVF to 50ml/hr -titrate down norepinephrine while adding vassopressin 3. Chronic systolic heart failure -f/u echo 4. HUSSAIN -urine output~11ml/hr, goal >.5ml/kg/hr -avoid nephrotoxic drugs -discuss HD w family~needs L IJ once platelets stabilize 5. Anemia-anemia of chronic disease -fecal occult blood -iron profile -folate/b12 6. Neutropenia -granix 480mg sc -neutropenic precaution 7. GI -nepro 8. thrombocytopenia -platelets 31--->25 -transfuse 1U platelets today 9. Transaminitis -most likely 2/2 shock -monitor -avoid hepatotoxic drugs 10. Electrolyte disturbance -monitor and replete as needed -hypocalcemia 5.1, corrected Ca 6.2, given 2,000mg of CaGluc 11. Skin -supplemental MVI/vitamin C + turn q2 hrs Ppx -protonix -SCD -Goals of care discussed with family Case discussed with Dr. Wadsworth
--- NOTE | 2017-08-31 12:42 | CP.PCM.PN ---
Subjective - Date & Time of Evaluation Date of Evaluation: 08/31/17 Time of Evaluation: 12:42 Objective - Vital Signs/Intake and Output Vital Signs (last 24 hours): Temp Pulse Resp BP Pulse Ox 100.3 F H 112 H 31 H 121/66 97 08/31/17 12:00 08/31/17 11:19 08/31/17 11:19 08/31/17 11:19 08/31/17 11:19 Intake and Output: 08/31/17 08/31/17 06:59 18:59 Intake Total 1779.2 1125.0 Output Total 360 80 Balance 1419.2 1045.0 - Medications Medications: Current Medications Acetaminophen (Tylenol 650mg/20.3ml Solution Ud) 650 mg PO Q8 PRN PRN Reason: Fever >100.4 F Last Admin: 08/30/17 21:05 Dose: 650 mg Albuterol/Ipratropium (Duoneb 3 Mg/0.5 Mg (3 Ml) Ud) 3 ml INH RQ4 RENAN Atovaquone (Mepron) 1,500 mg PO DAILY RENAN PRN Reason: Protocol Last Admin: 08/31/17 09:58 Dose: 1,500 mg Famotidine (Pepcid) 20 mg IVP DAILY RENAN Last Admin: 08/31/17 09:58 Dose: 20 mg Hydrocortisone Sodium Succinate (Solu-Cortef) 50 mg IV Q8 RENAN Propofol (Diprivan) 1,000 mg in 100 mls @ 2.218 mls/hr IV .Q24H PRN; Protocol; 5 MCG/KG/MIN PRN Reason: TITRATE PER MD ORDER Last Titration: 08/31/17 11:05 Dose: 12 mcg/kg/min, 5.323 mls/hr Phenylephrine HCl 30 mg/ (Dextrose) 253 mls @ 20.23 mls/hr IV .[id number] PRN; Protocol; 40 MCG/MIN PRN Reason: TITRATE PER MD ORDER Last Titration: 08/31/17 11:25 Dose: 49.4 mcg/min, 25 mls/hr Meropenem 1 gm/ Sodium (Chloride) 100 mls @ 100 mls/hr IVPB Q12H RENAN PRN Reason: Protocol Last Admin: 08/31/17 03:15 Dose: 100 mls/hr Azithromycin 500 mg/ Sodium (Chloride) 250 mls @ 250 mls/hr IVPB Q24H RENAN PRN Reason: Protocol Last Admin: 08/30/17 17:37 Dose: 250 mls/hr Sodium Bicarbonate 75 meq/ (Sodium Chloride) 1,075 mls @ 50 mls/hr IV .[id number] [facility] Last Admin: 08/31/17 11:17 Dose: 50 mls/hr Vasopressin 40 units/ Sodium (Chloride) 40 mls @ 0.6 mls/hr IV .Q24H RENAN; 0.01 UNITS/MIN PRN Reason: Protocol Calcium Gluconate 2,000 mg/ (Sodium Chloride) 270 mls @ 135 mls/hr IVPB ONCE ONE PRN Reason: Per Protocol Stop: 08/31/17 14:29 Last Admin: 08/31/17 12:25 Dose: 135 mls/hr Insulin Aspart (Novolog) 0 unit SC Q6 RENAN PRN Reason: Protocol Last Admin: 08/31/17 12:25 Dose: 1 u Insulin Glargine (Lantus) 15 unit SC QAM [facility] Last Admin: 08/31/17 09:57 Dose: 15 unit Lorazepam (Ativan) 1 mg IVP Q6H PRN PRN Reason: Anxiety Last Admin: 08/29/17 21:29 Dose: 1 mg Senna/Docusate Sodium (Senokot S 50 Mg-8.6 Mg) 1 tab GT DAILY [facility] Last Admin: 08/31/17 09:58 Dose: 1 tab Vitamin B Complex/Vit C/Folic Acid (Nephro-Chauncey) 1 tab PO 0800 [facility] - Labs Labs: 08/31/17 06:15 08/31/17 06:15 PT 14.9 SECONDS (9.7-12.2) H 08/31/17 06:15 INR 1.4 08/31/17 06:15 APTT 28 SECONDS (21-34) 08/31/17 06:15 Assessment and Plan (1) Pancytopenia Status: Acute (2) Abdominal pain Status: Acute (3) Esophagitis Status: Acute (4) Metastatic malignant neoplasm to prostate Status: Acute
--- NOTE | 2017-08-31 13:04 | CP.PCM.CON ---
History of Present Illness - History of Present Illness History of Present Illness: Patient seen Thursday08/28/17, consult note entered under different patient's name , by mistake. This note indicates patient's condition on Thursday. Palliative consult requested by Doctor jasbir Pavon for goals of care discussion and family support Patient is a 61 yo male admitted from home with diffuse abdominal pain which has worsened since the night prior to admission. At that time, patient took Dilaudid 4 mg PO with relief. Recent endoscopy was positive for Bianca infection and gastrits. Patient was treated symptomatically . This morning his breathing become heavy, HR 141, O2Sat 95 % on 5 L O2. Transferred to ICU where immediate intubation was necessary. 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 Hx: , lives at home, has 3 kids Fam. Hx: denied b family Review of Systems - Review of Systems All systems: reviewed and no additional remarkable complaints except Review of Systems: ROS obtained from nursing due to patient's condition. Per nursing patient remains on 100 % O 2 supplement, unresponsive. Past Patient History - Past Medical History & Family History Past Medical History?: Yes - Past Social History Smoking Status: Never Smoked Chewing Tobacco Use: No Cigar Use: No Alcohol: None - CARDIAC Hx Cardiac Disorders: No - PULMONARY Hx Respiratory Disorders: No - NEUROLOGICAL Hx Neurological Disorder: No - HEENT Hx HEENT Problems: No - RENAL Hx Chronic Kidney Disease: No - ENDOCRINE/METABOLIC Hx Endocrine Disorders: No - HEMATOLOGICAL/ONCOLOGICAL Hx Blood Transfusions: Yes Hx Blood Transfusion Reaction: No - INTEGUMENTARY Hx Dermatological Problems: No - MUSCULOSKELETAL/RHEUMATOLOGICAL Hx Musculoskeletal Disorders: No Hx Falls: No Hx Unsteady Gait: No - GASTROINTESTINAL Hx Gastrointestinal Disorders: No - GENITOURINARY/GYNECOLOGICAL Hx Genitourinary Disorders: Yes Hx Prostate Cancer: Yes (radiation) - PSYCHIATRIC Hx Substance Use: No - SURGICAL HISTORY Hx Surgeries: No - ANESTHESIA Hx Anesthesia: No Hx Anesthesia Reactions: No Hx Malignant Hyperthermia: No Meds Allergies/Adverse Reactions: Allergies Allergy/AdvReac Type Severity Reaction Status Date / Time No Known Allergies Allergy Verified 08/09/17 11:24 - Medications Medications: Current Medications Acetaminophen (Tylenol 650mg/20.3ml Solution Ud) 650 mg PO Q8 PRN PRN Reason: Fever >100.4 F Last Admin: 08/30/17 21:05 Dose: 650 mg Albuterol/Ipratropium (Duoneb 3 Mg/0.5 Mg (3 Ml) Ud) 3 ml INH RQ4 RENAN Atovaquone (Mepron) 1,500 mg PO DAILY RENAN PRN Reason: Protocol Last Admin: 08/31/17 09:58 Dose: 1,500 mg Famotidine (Pepcid) 20 mg IVP DAILY [facility] Last Admin: 08/31/17 09:58 Dose: 20 mg Hydrocortisone Sodium Succinate (Solu-Cortef) 50 mg IV Q8 RENAN Propofol (Diprivan) 1,000 mg in 100 mls @ 2.218 mls/hr IV .Q24H PRN; Protocol; 5 MCG/KG/MIN PRN Reason: TITRATE PER MD ORDER Last Titration: 08/31/17 11:05 Dose: 12 mcg/kg/min, 5.323 mls/hr Phenylephrine HCl 30 mg/ (Dextrose) 253 mls @ 20.23 mls/hr IV .[id number] PRN; Protocol; 40 MCG/MIN PRN Reason: TITRATE PER MD ORDER Last Titration: 08/31/17 11:25 Dose: 49.4 mcg/min, 25 mls/hr Meropenem 1 gm/ Sodium (Chloride) 100 mls @ 100 mls/hr IVPB Q12H RENAN PRN Reason: Protocol Last Admin: 08/31/17 03:15 Dose: 100 mls/hr Azithromycin 500 mg/ Sodium (Chloride) 250 mls @ 250 mls/hr IVPB Q24H RENAN PRN Reason: Protocol Last Admin: 08/30/17 17:37 Dose: 250 mls/hr Sodium Bicarbonate 75 meq/ (Sodium Chloride) 1,075 mls @ 50 mls/hr IV .[id number] RENAN Last Admin: 08/31/17 11:17 Dose: 50 mls/hr Vasopressin 40 units/ Sodium (Chloride) 40 mls @ 0.6 mls/hr IV .Q24H RENAN; 0.01 UNITS/MIN PRN Reason: Protocol Calcium Gluconate 2,000 mg/ (Sodium Chloride) 270 mls @ 135 mls/hr IVPB ONCE ONE PRN Reason: Per Protocol Stop: 08/31/17 14:29 Last Admin: 08/31/17 12:25 Dose: 135 mls/hr Insulin Aspart (Novolog) 0 unit SC Q6 [facility] PRN Reason: Protocol Last Admin: 08/31/17 12:25 Dose: 1 u Insulin Glargine (Lantus) 15 unit SC QAM [facility] Last Admin: 08/31/17 09:57 Dose: 15 unit Lorazepam (Ativan) 1 mg IVP Q6H PRN PRN Reason: Anxiety Last Admin: 08/29/17 21:29 Dose: 1 mg Senna/Docusate Sodium (Senokot S 50 Mg-8.6 Mg) 1 tab GT DAILY [facility] Last Admin: 08/31/17 09:58 Dose: 1 tab Vitamin B Complex/Vit C/Folic Acid (Nephro-Chauncey) 1 tab PO 0800 [facility] Physical Exam - Constitutional Appears: In Acute Distress, Chronically Ill - Head Exam Head Exam: ATRAUMATIC, NORMAL INSPECTION, NORMOCEPHALIC - Eye Exam Eye Exam: Normal appearance - ENT Exam ENT Exam: Normal Exam Additional comments: ETT - Neck Exam Neck exam: Positive for: Normal Inspection - Respiratory Exam Additional comments: On MV - Cardiovascular Exam Cardiovascular Exam: Tachycardia - GI/Abdominal Exam GI & Abdominal Exam: Hypoactive Bowel Sounds - Rectal Exam Rectal Exam: Deferred - Exam Exam: NORMAL INSPECTION - Extremities Exam Extremities exam: Positive for: normal inspection - Back Exam Back exam: NORMAL INSPECTION - Neurological Exam Neurological exam: Motor Sensory Deficit - Psychiatric Exam Psychiatric exam: Flat Affect - Skin Skin Exam: Pallor Results - Vital Signs Recent Vital Signs: Last Vital Signs Temp 100.3 F H 08/31/17 12:00 Pulse 112 H 08/31/17 11:19 Resp 31 H 08/31/17 11:19 BP 121/66 08/31/17 11:19 Pulse Ox 97 08/31/17 11:19 - Labs Result Diagrams: 08/31/17 06:15 08/31/17 06:15 Labs: Laboratory Results - last 24 hr 08/30/17 08/30/17 08/31/17 17:33 23:25 05:23 WBC RBC Hgb Hct MCV MCH MCHC RDW Plt Count MPV Neut % (Auto) Lymph % (Auto) Phillips % (Auto) Eos % (Auto) Baso % (Auto) Neut # (Auto) Lymph # (Auto) Phillips # (Auto) Eos # (Auto) Baso # (Auto) Total Counted Neutrophils % (Manual) Band Neutrophils % Lymphocytes % (Manual) Reactive Lymphs % Monocytes % (Manual) Eosinophils % (Manual) Basophils % (Manual) Metamyelocytes % Myelocytes % Promyelocytes % Blast Cells % Plasma Cell % (Manual) Nucleated RBC % Hypersegmented Polys Smudge Cells Toxic Granulation Dohle Bodies Vonda Rods Platelet Estimate Plt Clumps, EDTA Large Platelets Giant Platelets RBC Morphology Polychromasia Hypochromasia (manual) Poikilocytosis (manual Basophilic Stippling Anisocytosis (manual) Microcytosis (manual) Macrocytosis (manual) Spherocytes Sickle Cells Target Cells Tear Drop Cells Ovalocytes Stomatocytes Helmet Cells Mac-Manly Bodies Courtney Cells Acanthocytes (Spur) Rouleaux Schistocytes PT INR APTT Fibrinogen Puncture Site pCO2 pO2 HCO3 ABG pH ABG Total CO2 ABG O2 Saturation ABG Base Excess ABG Hemoglobin ABG Carboxyhemoglobin POC ABG HHb (Measured) ABG Methemoglobin Harpreet Test A-a O2 Difference Respiratory Index Hgb O2 Saturation Vent Mode Mechanical Rate FiO2 Tidal Volume PEEP Sodium Potassium Chloride Carbon Dioxide Anion Gap BUN Creatinine Est GFR ( Amer) Est GFR (Non-Af Amer) POC Glucose (mg/dL) 161 H 141 H 147 H Random Glucose Calcium Phosphorus Magnesium Total Bilirubin AST ALT Alkaline Phosphatase Total Protein Albumin Globulin Albumin/Globulin Ratio 08/31/17 08/31/17 08/31/17 05:35 06:15 06:15 WBC 0.5 L* D RBC 3.07 L Hgb 8.9 L Hct 26.0 L MCV 84.8 MCH 28.9 MCHC 34.1 RDW 18.2 H Plt Count 31 L MPV 7.7 Neut % (Auto) 11.1 L Lymph % (Auto) 75.8 H Phillips % (Auto) 12.9 H Eos % (Auto) 0.2 Baso % (Auto) 0.0 Neut # (Auto) 0.1 L Lymph # (Auto) 0.3 L Phillips # (Auto) 0.1 Eos # (Auto) 0.0 Baso # (Auto) 0.0 Total Counted Cancelled Neutrophils % (Manual) Cancelled Band Neutrophils % Cancelled Lymphocytes % (Manual) Cancelled Reactive Lymphs % Cancelled Monocytes % (Manual) Cancelled Eosinophils % (Manual) Cancelled Basophils % (Manual) Cancelled Metamyelocytes % Cancelled Myelocytes % Cancelled Promyelocytes % Cancelled Blast Cells % Cancelled Plasma Cell % (Manual) Cancelled Nucleated RBC % Cancelled Hypersegmented Polys Cancelled Smudge Cells Cancelled Toxic Granulation Cancelled Dohle Bodies Cancelled Vonda Rods Cancelled Platelet Estimate Cancelled Plt Clumps, EDTA Cancelled Large Platelets Cancelled Giant Platelets Cancelled RBC Morphology Cancelled Polychromasia Cancelled Hypochromasia (manual) Cancelled Poikilocytosis (manual Cancelled Basophilic Stippling Cancelled Anisocytosis (manual) Cancelled Microcytosis (manual) Cancelled Macrocytosis (manual) Cancelled Spherocytes Cancelled Sickle Cells Cancelled Target Cells Cancelled Tear Drop Cells Cancelled Ovalocytes Cancelled Stomatocytes Cancelled Helmet Cells Cancelled Mac-Manly Bodies Cancelled [place] Cells Cancelled Acanthocytes (Spur) Cancelled Rouleaux Cancelled Schistocytes Cancelled PT 14.9 H INR 1.4 APTT 28 Fibrinogen 814 H D Puncture Site Lr pCO2 35 pO2 130 H HCO3 18.4 L ABG pH 7.30 L ABG Total CO2 18.3 L ABG O2 Saturation 99.3 H ABG Base Excess -8.4 L ABG Hemoglobin 10.0 L ABG Carboxyhemoglobin 1.3 POC ABG HHb (Measured) 0.7 ABG Methemoglobin 1.0 Harpreet Test Pos A-a O2 Difference 254.0 Respiratory Index 2.0 Hgb O2 Saturation 97.0 Vent Mode Prvc Mechanical Rate 25 FiO2 60.0 Tidal Volume 450 PEEP 10 Sodium Potassium Chloride Carbon Dioxide Anion Gap BUN Creatinine Est GFR ( Amer) Est GFR (Non-Af Amer) POC Glucose (mg/dL) Random Glucose Calcium Phosphorus Magnesium Total Bilirubin AST ALT Alkaline Phosphatase Total Protein Albumin Globulin Albumin/Globulin Ratio 08/31/17 08/31/17 06:15 11:42 WBC RBC Hgb Hct MCV MCH MCHC RDW Plt Count MPV Neut % (Auto) Lymph % (Auto) Phillips % (Auto) Eos % (Auto) Baso % (Auto) Neut # (Auto) Lymph # (Auto) Phillips # (Auto) Eos # (Auto) Baso # (Auto) Total Counted Neutrophils % (Manual) Band Neutrophils % Lymphocytes % (Manual) Reactive Lymphs % Monocytes % (Manual) Eosinophils % (Manual) Basophils % (Manual) Metamyelocytes % Myelocytes % Promyelocytes % Blast Cells % Plasma Cell % (Manual) Nucleated RBC % Hypersegmented Polys Smudge Cells Toxic Granulation Dohle Bodies Vonda Rods Platelet Estimate Plt Clumps, EDTA Large Platelets Giant Platelets RBC Morphology Polychromasia Hypochromasia (manual) Poikilocytosis (manual Basophilic Stippling Anisocytosis (manual) Microcytosis (manual) Macrocytosis (manual) Spherocytes Sickle Cells Target Cells Tear Drop Cells Ovalocytes Stomatocytes Helmet Cells Mac-Manly Bodies Courtney Cells Acanthocytes (Spur) Rouleaux Schistocytes PT INR APTT Fibrinogen Puncture Site pCO2 pO2 HCO3 ABG pH ABG Total CO2 ABG O2 Saturation ABG Base Excess ABG Hemoglobin ABG Carboxyhemoglobin POC ABG HHb (Measured) ABG Methemoglobin Harpreet Test A-a O2 Difference Respiratory Index Hgb O2 Saturation Vent Mode Mechanical Rate FiO2 Tidal Volume PEEP Sodium 132 Potassium 4.3 Chloride 99 Carbon Dioxide 19 L Anion Gap 19 BUN 82 H Creatinine 3.7 H Est GFR ( Amer) 20 Est GFR (Non-Af Amer) 17 POC Glucose (mg/dL) 156 H Random Glucose 145 H Calcium 5.1 L* Phosphorus 4.5 Magnesium 2.1 Total Bilirubin 7.1 H AST 60 H ALT 63 Alkaline Phosphatase 176 H Total Protein 5.4 L Albumin 2.5 L Globulin 2.9 Albumin/Globulin Ratio 0.9 L Assessment & Plan - Assessment and Plan (Free Text) Assessment: Palliative consult Full Code, there is no Advance directive on chart, PPS 0% I reviewed mdical records, all diagnostic studies and examined patient in the bed. Patient is on Full life support, on MV support, unresponsive to verbal and tactile stimuli.HR 136, still. CXR showed right lung atelectasis. Abdomen soft and flat. BP still low 99/64. Three children and at bed side. is only Yoruba speaking. Daughter Primo mstly participated n discussion, while and two other kids listened to. One of them was translating for the . I reviewed patient's clinical condition and elicited their understanding. Nelly said, that they were well aware of patient's cancer diagnosis and how severe it was. Shocking to them is, that just yesterday patient seemed to be at his normal condition, verbal and breathing on his own. I discussed with them the CXR findings and the role of ventilator. Goals of care discussed. Family wanted to know how soon and if patient was going to improve. Family asked me to talk to them openly. I provided more information about MV and CXRs to fallow on condition of lungs with idea to wean patient of the MV when possible. On the same note, I offered my concerns hat due to patient's advanced cancer, prognosis is guarded and his progress is difficult to predict. Using very gentle words, in a way I suggested to family, that in few days we will have better idea about patient's condition and if we will be able to wean him of MV. I suggested that in some cases, we discuss terminal extubation if diagnosis was seen as terminal. Family stated understanding. We agreed to meet daily and fallow up on patient's condition. Code status discussed. CPR reviewed. As of now, patient still wants CPR if it should be needed. Impression * Chronically ll male with metastatic cancer * Acute respiratory distress on MV assistance * Family in shock due to sudden changes in chronic conditon * Patient's wishes for end of life care are not known * Family is requesting Full Code * Daughter Nelly [phone] spoke person Suggestion * Continue Full life support * Update family pat;y, about patient's condition * Pastoral care for spiritual support Palliative care will fallow up with patient and family for further goals of care , based n patient's progress. terminal extubation remains as possibi;ity. Advance planing 45 min
[2017-08-31 14:11] LABS: EOS % 1.6 % (0.0-4.0); HEMOGLOBIN 10.1 g/dL (12.0-18.0); LYMPH # 0.2 K/uL (1.0-4.3); MEAN CELL VOLUME 84.9 fL (80.0-94.0); MEAN CORPUSCULAR HEMOGLOBIN 29.5 pg (27.0-31.0); MEAN CORPUSCULAR HGB CONC 34.8 g/dL (33.0-37.0); MEAN PLATELET VOLUME 8.3 fL (7.2-11.7); MONO # 0.1 K/uL (0.0-0.8); MONO % 26.6 % (0.0-10.0); NEUT # 0.1 K/uL (1.8-7.0); NEUT % 19.8 % (50.0-75.0); NRBC % 0.3 % (0.0-2.0); RBC 3.41 Mil/uL (4.40-5.90); RED CELL DISTRIBUTION WIDTH 18.1 % (11.5-14.5)
[2017-08-31 14:17] LABS: WHITE BLOOD COUNT 0.5 K/uL (4.8-10.8)
[2017-08-31 14:20] LABS: INR 1.4; PROTHROMBIN TIME 15.4 SECONDS (9.7-12.2)
--- NOTE | 2017-08-31 14:23 | CP.PCM.PN ---
Subjective - Date & Time of Evaluation Date of Evaluation: 08/31/17 Time of Evaluation: 01:00 - Subjective Subjective: Patient is intubated, on Propofol drip, unresponsive , on reverse isolation. Objective - Vital Signs/Intake and Output Vital Signs (last 24 hours): Temp Pulse Resp BP Pulse Ox 100.3 F H 112 H 31 H 121/66 97 08/31/17 12:00 08/31/17 11:19 08/31/17 11:19 08/31/17 11:19 08/31/17 11:19 Intake and Output: 08/31/17 08/31/17 06:59 18:59 Intake Total 1779.2 1275.6 Output Total 360 100 Balance 1419.2 1175.6 - Medications Medications: Current Medications Acetaminophen (Tylenol 650mg/20.3ml Solution Ud) 650 mg PO Q8 PRN PRN Reason: Fever >100.4 F Last Admin: 08/30/17 21:05 Dose: 650 mg Albuterol/Ipratropium (Duoneb 3 Mg/0.5 Mg (3 Ml) Ud) 3 ml INH RQ4 RENAN Atovaquone (Mepron) 1,500 mg PO DAILY [facility]N PRN Reason: Protocol Last Admin: 08/31/17 09:58 Dose: 1,500 mg Famotidine (Pepcid) 20 mg IVP DAILY [facility] Last Admin: 08/31/17 09:58 Dose: 20 mg Hydrocortisone Sodium Succinate (Solu-Cortef) 50 mg IV Q8 RENAN Propofol (Diprivan) 1,000 mg in 100 mls @ 2.218 mls/hr IV .Q24H PRN; Protocol; 5 MCG/KG/MIN PRN Reason: TITRATE PER MD ORDER Last Titration: 08/31/17 11:05 Dose: 12 mcg/kg/min, 5.323 mls/hr Phenylephrine HCl 30 mg/ (Dextrose) 253 mls @ 20.23 mls/hr IV .[id number] PRN; Protocol; 40 MCG/MIN PRN Reason: TITRATE PER MD ORDER Last Titration: 08/31/17 13:42 Dose: 29.64 mcg/min, 15 mls/hr Meropenem 1 gm/ Sodium (Chloride) 100 mls @ 100 mls/hr IVPB Q12H [facility]N PRN Reason: Protocol Last Admin: 08/31/17 03:15 Dose: 100 mls/hr Azithromycin 500 mg/ Sodium (Chloride) 250 mls @ 250 mls/hr IVPB Q24H RENAN PRN Reason: Protocol Last Admin: 08/30/17 17:37 Dose: 250 mls/hr Sodium Bicarbonate 75 meq/ (Sodium Chloride) 1,075 mls @ 50 mls/hr IV .[id number] [facility] Last Admin: 08/31/17 11:17 Dose: 50 mls/hr Vasopressin 40 units/ Sodium (Chloride) 40 mls @ 0.6 mls/hr IV .Q24H RENAN; 0.01 UNITS/MIN PRN Reason: Protocol Calcium Gluconate 2,000 mg/ (Sodium Chloride) 270 mls @ 135 mls/hr IVPB ONCE ONE PRN Reason: Per Protocol Stop: 08/31/17 14:29 Last Admin: 08/31/17 12:25 Dose: 135 mls/hr Insulin Aspart (Novolog) 0 unit SC Q6 [facility]N PRN Reason: Protocol Last Admin: 08/31/17 12:25 Dose: 1 u Insulin Glargine (Lantus) 15 unit SC QAM [facility] Last Admin: 08/31/17 09:57 Dose: 15 unit Lorazepam (Ativan) 1 mg IVP Q6H PRN PRN Reason: Anxiety Last Admin: 08/29/17 21:29 Dose: 1 mg Senna/Docusate Sodium (Senokot S 50 Mg-8.6 Mg) 1 tab GT DAILY [facility] Last Admin: 08/31/17 09:58 Dose: 1 tab Vitamin B Complex/Vit C/Folic Acid (Nephro-Chauncey) 1 tab PO 0800 [facility] - Labs Labs: 08/31/17 06:15 08/31/17 06:15 PT 14.9 SECONDS (9.7-12.2) H 08/31/17 06:15 INR 1.4 08/31/17 06:15 APTT 28 SECONDS (21-34) 08/31/17 06:15 - Constitutional Appears: In Acute Distress, Chronically Ill - Head Exam Head Exam: ATRAUMATIC, NORMAL INSPECTION, NORMOCEPHALIC - Eye Exam Eye Exam: EOMI, Normal appearance, PERRL Pupil Exam: NORMAL ACCOMODATION, PERRL - ENT Exam ENT Exam: Normal Exam Additional comments: ETT - Neck Exam Neck Exam: Normal Inspection - Respiratory Exam Additional comments: On MV - Cardiovascular Exam Cardiovascular Exam: Bradycardia, Irregular Rhythm - GI/Abdominal Exam GI & Abdominal Exam: Diminished Bowel Sounds - Rectal Exam Rectal Exam: Deferred - Exam Additional comments: Benjamin cath - Extremities Exam Extremities Exam: Normal Inspection - Back Exam Back Exam: NORMAL INSPECTION - Neurological Exam Neurological Exam: Motor Sensory Deficit Neuro motor strength exam: Left Upper Extremity: 0, Right Upper Extremity: 0, Left Lower Extremity: 0, Right Lower Extremity: 0 - Psychiatric Exam Psychiatric exam: Flat Affect - Skin Skin Exam: Pallor Assessment and Plan - Assessment and Plan (Free Text) Assessment: Patient remains on full life support, in acute distress. per administrative resident, due to poor kidney functions, HD was suggested and patient is to receive HD access. WBC 0.5. Patient on neutropenic isolation. Hb 8.9. On MV assistance, few spontaneous breaths, HR 112, RR 31, is not tolerating weaning. ICU staff is concerned with quality of life for this patient and asked me to talk again to family and revisit goals of care. I met with patient's daughter Nelly, who family chose as a spoke person. I reviewed patient's clinical condition and offered my concerns regarding quality of life issues and elicited family's expectations of care. Nelly replied that family is very oriental orthodox and believe 'God has last say". Nelly states understanding of patient's advanced cancer and poor prognosis, but her and her family feel that patient is just not near the just yet. She feels her father would ask for same care if he could talk. Family sees him as a strong willed and fighter. I questioned her feelings abut HD. The answer was about the same as to the above. Code status discussed. I questioned if family would want us to provide CPR if it should be needed regardless of poor prognosis. Nelly answered yes. I supported her offered my understanding. Impression * Chronically ill male with metastatic cancer with acute respiratory distress * Family is still in shock and is not accepting patient's clinical condition; hopes for miracle * Family heavily relies on God at this time of crisis * Patient is unable to advocate for himself * Family is asking for all available meassures to support life, including CPR, HD, and MV support. Suggestions * Continue all measures to support life * Full Code * pastoral care for spiritual support Advance care planing, 25 min
[2017-08-31 15:41] LABS: HEPATITIS B SURFACE AG Negative (NEGATIVE)
[2017-08-31 15:47] LABS: HEPATITIS B CORE AB NEGATIVE (NEGATIVE)
[2017-08-31 15:59] LABS: HEPATITIS C ANTIBODY NEGATIVE (NEGATIVE)
[2017-08-31] MEDS: Azithromycin 500 MG in Sodium Chloride 0.9% 250 ML IVPB SCH (16:11)
[2017-08-31] MEDS: Acetaminophen 650mg/20.3ml solution UD PO PRN (20:01)
--- NOTE | 2017-08-31 21:11 | CP.PCM.PN ---
Subjective - Date & Time of Evaluation Date of Evaluation: 08/31/17 Time of Evaluation: 12:15 - Subjective Subjective: clinically same Objective - Vital Signs/Intake and Output Vital Signs (last 24 hours): Temp Pulse Resp BP Pulse Ox 100.9 F H 125 H 30 H 96/57 L 97 08/31/17 21:07 08/31/17 21:07 08/31/17 21:07 08/31/17 21:07 08/31/17 19:00 Intake and Output: 08/31/17 09/01/17 18:59 06:59 Intake Total 2006.8 158.3 Output Total 145 10 Balance 1861.8 148.3 - Medications Medications: Current Medications Acetaminophen (Tylenol 650mg/20.3ml Solution Ud) 650 mg PO Q8 PRN PRN Reason: Fever >100.4 F Last Admin: 08/31/17 20:01 Dose: 650 mg Albuterol/Ipratropium (Duoneb 3 Mg/0.5 Mg (3 Ml) Ud) 3 ml INH RQ4 RENAN Atovaquone (Mepron) 1,500 mg PO DAILY [facility] PRN Reason: Protocol Last Admin: 08/31/17 09:58 Dose: 1,500 mg Famotidine (Pepcid) 20 mg IVP DAILY [facility] Last Admin: 08/31/17 09:58 Dose: 20 mg Hydrocortisone Sodium Succinate (Solu-Cortef) 50 mg IV Q8 [facility] Last Admin: 08/31/17 15:05 Dose: 50 mg Propofol (Diprivan) 1,000 mg in 100 mls @ 2.218 mls/hr IV .Q24H PRN; Protocol; 5 MCG/KG/MIN PRN Reason: TITRATE PER MD ORDER Last Titration: 08/31/17 11:05 Dose: 12 mcg/kg/min, 5.323 mls/hr Phenylephrine HCl 30 mg/ (Dextrose) 253 mls @ 20.23 mls/hr IV .[id number] PRN; Protocol; 40 MCG/MIN PRN Reason: TITRATE PER MD ORDER Last Titration: 08/31/17 20:10 Dose: 35 mcg/min, 17.71 mls/hr Meropenem 1 gm/ Sodium (Chloride) 100 mls @ 100 mls/hr IVPB Q12H [facility] PRN Reason: Protocol Last Admin: 08/31/17 15:06 Dose: 100 mls/hr Azithromycin 500 mg/ Sodium (Chloride) 250 mls @ 250 mls/hr IVPB Q24H [facility] PRN Reason: Protocol Last Admin: 08/31/17 16:11 Dose: 250 mls/hr Sodium Bicarbonate 75 meq/ (Sodium Chloride) 1,075 mls @ 50 mls/hr IV .[id number] [facility] Last Admin: 08/31/17 11:17 Dose: 50 mls/hr Vasopressin 40 units/ Sodium (Chloride) 40 mls @ 0.6 mls/hr IV .Q24H RENAN; 0.01 UNITS/MIN PRN Reason: Protocol Insulin Aspart (Novolog) 0 unit SC Q6 [facility] PRN Reason: Protocol Last Admin: 08/31/17 17:36 Dose: Not Given Insulin Glargine (Lantus) 15 unit SC QAM [facility] Last Admin: 08/31/17 09:57 Dose: 15 unit Lorazepam (Ativan) 1 mg IVP Q6H PRN PRN Reason: Anxiety Last Admin: 08/29/17 21:29 Dose: 1 mg Senna/Docusate Sodium (Senokot S 50 Mg-8.6 Mg) 1 tab GT DAILY [facility] Last Admin: 08/31/17 09:58 Dose: 1 tab Vitamin B Complex/Vit C/Folic Acid (Nephro-Chauncey) 1 tab PO 0800 [facility] - Labs Labs: 08/31/17 14:07 08/31/17 06:15 PT 15.4 SECONDS (9.7-12.2) H 08/31/17 14:07 INR 1.4 08/31/17 14:07 APTT 36 SECONDS (21-34) H D 08/31/17 14:07 - Constitutional Appears: Well - Head Exam Head Exam: ATRAUMATIC, NORMAL INSPECTION, NORMOCEPHALIC - Eye Exam Eye Exam: EOMI, Normal appearance, PERRL Pupil Exam: NORMAL ACCOMODATION, PERRL - ENT Exam ENT Exam: Mucous Membranes Moist, Normal Exam - Neck Exam Neck Exam: Full ROM, Normal Inspection. absent: Lymphadenopathy - Respiratory Exam Respiratory Exam: Decreased Breath Sounds - Cardiovascular Exam Cardiovascular Exam: REGULAR RHYTHM, +S1, +S2 - GI/Abdominal Exam GI & Abdominal Exam: Soft, Diminished Bowel Sounds - Rectal Exam Rectal Exam: Deferred Assessment and Plan (1) Acute respiratory failure Status: Acute (2) Anemia Status: Acute (3) Chronic pain Status: Acute (4) Esophagitis Status: Acute (5) Gastritis Status: Acute (6) Pancytopenia Status: Acute (7) Abdominal pain Status: Acute (8) Chest discomfort Status: Acute (9) Constipation Status: Acute (10) Intractable abdominal pain Status: Acute (11) Metastatic malignant neoplasm to prostate Status: Acute (12) Neutropenia Status: Acute
--- NOTE | 2017-08-31 23:18 | CP.PCM.PN ---
Subjective - Date & Time of Evaluation Date of Evaluation: 08/31/17 Time of Evaluation: 23:18 - Subjective Subjective: CHIEF COMPLAINTS TODAY : -ICU BED 5 TMAX 100.3 , BP 108/60 INTUBATED, UNRESPONSIVE TACHYCARDIAC, OLIGURIC/JAUNDICED HYPOTENSIVE ON PRESSORS REMAINS PANCYTOPENIC. SEEN BY PALLIATIVE CARE +VE LEGIONELLA URINARY AG +VE MRSA NARES ROS.ON OBSERVATION HEENT : N. Resp : ON VENTILATOR , NO wheezing ,pleuritic CP ,or hemoptysis Cardio : No anginal CP, PND, orthopnea, palpitation GI : NO n/v ,diarrhea or GI bleeding . NET DEVELOPER SOFTWARE ENGINEER C : No headache, vertigo, focal deficit. Musculoskel : No joint swelling , Derm : No rash Psych : Normal affect. Ext : No swelling ,calf pain PE. Pt. is UNRESPONSIVE ,ON VENTILATOR V.S As noted in the chart Head ,ear nose,throat and eyes : Normal.SCLERA ANICTERIC Neck : Supple with normal carotids. Lungs: RHONCHI LT SIDE Heart : S1 & S2 TACHY HR 112/MIN . No murmur. Abd : SOFT, NON TENDER , with normal bowel sounds. Neuro : UNRESPONSIVE Ext : No edema with intact pulses.Non tender calves Derm : No rashes or decubitus ulcer. LABS/RADIOLOGY: wbc 0.5, H/H 10.I pLATELETS 25 CREATININE 3.7 /bun 82 LFTS TOTAL BILI 7.1 , TRANSAMINASES IMPROVING.AP 176 BLOOD CULTURES 08/23/17 -VE X TO DATE URINE CULTURES 08/27/17 -VE GROWTH CXR 08/31/17 DENSE CONSOLIDATION LEFT LUNG . RT IJV ASSESSMENT NEUTROPENIC FEVERS /MULTIORGAN FAILURE PNEUMONIA - LEGIONELLA ANTIGEN POSITIVE ( ? LEGIONELLA PNEUMOPHILLA ) METASTATIC CA PROSTRATE. HX OF ESOPHAGITIS VI S/P EGD ABDOMINAL PAIN- ABNORMAL LIVER FUNCTION TESTS-SHOCK LIVER VS CHOLESTASIS VS LEGIONELLOSIS HUSSAIN SEC SHOCK /PLAN : ON MULTIPLE ANTIBIOTICS BLOOD CULTURES x2 SETS XFUNGUS TODAY STAT VANCOMYCIN ON HOLD. CHECK VANCO RANDOMIN AM .ON iv MERREM DECREASE DOSE TO 500 MG IV Q 8HRLY. 08/26/17 . DECREASE IV AZITHROMICIN 250MG IV PB [id number] MONITOR QT -PROLONGATION. DISCUSSED WITH PHARMACY, DO NOT HAVE IV LEVAQUIN/OR IV AVELOX DC IV FLUCONAZOLE 100 MG EVERY 24 HOURLY. 08/26/17 START IV MYCAFUNGIN 100MG IV [id number] 08/31/17. CONTINUE ATOVAQUONE 1500 MG od DAILY. 08/27/17 (NO DOSAGE ADJUSTMENT IN RENALFAILURE ) DECREASED iv STEROIDS ORDERED BY INTENSIVISTS.50 MG EVERY 8 HOURLY 08/31/17 NEUTROPENIC PRECAUTIONS. PULMONARY TOILET. F/U [employer],FUNGUS.PCP F/U [facility] FOR LEGINELLA CULTURE. (SENT 08/27/[address] Luciano CARLTON ) F/U LFTS /RENAL FUNCTIONS CLOSELY. PT FOR HD PER NOTES CASE DISCUSSED W STAFF/ LOCAL SALES ASSOCIATE. PROGNOSIS GRAVE Objective - Vital Signs/Intake and Output Vital Signs (last 24 hours): Temp Pulse Resp BP Pulse Ox 100.6 F H 123 H 30 H 105/62 96 08/31/17 22:26 08/31/17 23:00 08/31/17 23:00 08/31/17 23:00 08/31/17 23:00 Intake and Output: 08/31/17 09/01/17 18:59 06:59 Intake Total 2006.8 1449.9 Output Total 145 105 Balance 1861.8 1344.9 - Medications Medications: Current Medications Acetaminophen (Tylenol 650mg/20.3ml Solution Ud) 650 mg PO Q8 PRN PRN Reason: Fever >100.4 F Last Admin: 08/31/17 20:01 Dose: 650 mg Albuterol/Ipratropium (Duoneb 3 Mg/0.5 Mg (3 Ml) Ud) 3 ml INH RQ4 RENAN Atovaquone (Mepron) 1,500 mg PO DAILY RENAN PRN Reason: Protocol Last Admin: 08/31/17 09:58 Dose: 1,500 mg Famotidine (Pepcid) 20 mg IVP DAILY RENAN Last Admin: 08/31/17 09:58 Dose: 20 mg Hydrocortisone Sodium Succinate (Solu-Cortef) 50 mg IV Q8 RENAN Last Admin: 08/31/17 22:29 Dose: 50 mg Propofol (Diprivan) 1,000 mg in 100 mls @ 2.218 mls/hr IV .Q24H PRN; Protocol; 5 MCG/KG/MIN PRN Reason: TITRATE PER MD ORDER Last Titration: 08/31/17 22:00 Dose: 0 mcg/kg/min, 0 mls/hr Phenylephrine HCl 30 mg/ (Dextrose) 253 mls @ 20.23 mls/hr IV .[id number] PRN; Protocol; 40 MCG/MIN PRN Reason: TITRATE PER MD ORDER Last Titration: 08/31/17 21:54 Dose: 40 mcg/min, 20.23 mls/hr Meropenem 1 gm/ Sodium (Chloride) 100 mls @ 100 mls/hr IVPB Q12H RENAN PRN Reason: Protocol Last Admin: 08/31/17 15:06 Dose: 100 mls/hr Azithromycin 500 mg/ Sodium (Chloride) 250 mls @ 250 mls/hr IVPB Q24H RENAN PRN Reason: Protocol Last Admin: 08/31/17 16:11 Dose: 250 mls/hr Sodium Bicarbonate 75 meq/ (Sodium Chloride) 1,075 mls @ 50 mls/hr IV .[id number] RENAN Last Admin: 08/31/17 11:17 Dose: 50 mls/hr Vasopressin 40 units/ Sodium (Chloride) 40 mls @ 0.6 mls/hr IV .Q24H RENAN; 0.01 UNITS/MIN PRN Reason: Protocol Insulin Aspart (Novolog) 0 unit SC Q6 RENAN PRN Reason: Protocol Last Admin: 08/31/17 17:36 Dose: Not Given Insulin Glargine (Lantus) 15 unit SC QAM REANN Last Admin: 08/31/17 09:57 Dose: 15 unit Lorazepam (Ativan) 1 mg IVP Q6H PRN PRN Reason: Anxiety Last Admin: 08/29/17 21:29 Dose: 1 mg Senna/Docusate Sodium (Senokot S 50 Mg-8.6 Mg) 1 tab GT DAILY [facility] Last Admin: 08/31/17 09:58 Dose: 1 tab Vitamin B Complex/Vit C/Folic Acid (Nephro-Chauncey) 1 tab PO 0800 RENAN - Labs Labs: 08/31/17 14:07 08/31/17 06:15 PT 15.4 SECONDS (9.7-12.2) H 08/31/17 14:07 INR 1.4 08/31/17 14:07 APTT 36 SECONDS (21-34) H D 08/31/17 14:07 Assessment and Plan (1) Pancytopenia Status: Acute (2) Abdominal pain Status: Acute (3) Esophagitis Status: Acute (4) Metastatic malignant neoplasm to prostate Status: Acute
[2017-09-01] MEDS: (Novolog) Insulin Aspart, Recombinant 100 u/ml 10 ml vial SC SCH ×4 (01:14→17:33)
[2017-09-01] MEDS: Micafungin 100 MG in Sodium Chloride 0.9% 100 ML IV SCH (03:40)
[2017-09-01 05:50] LABS: ABG ALLEN TEST POS; ARTERIAL BLOOD GAS HCO3 18.6 mmol/L (21-28); ARTERIAL BLOOD GAS HEMOGLOBIN 12.8 g/dL (11.7-17.4); ARTERIAL BLOOD GAS O2 SAT 95.3 % (95-98); ARTERIAL BLOOD GAS PCO2 32 mm/Hg (35-45); ARTERIAL BLOOD GAS PH 7.33 (7.35-7.45); ARTERIAL BLOOD GAS PO2 68 mm/Hg (80-100); ARTERIAL BLOOD GAS TCO2 17.9 mmol/L (22-28)
[2017-09-01 06:28] LABS: HEMOGLOBIN 9.3 g/dL (12.0-18.0); MEAN CELL VOLUME 84.5 fL (80.0-94.0); MEAN CORPUSCULAR HEMOGLOBIN 28.8 pg (27.0-31.0); MEAN CORPUSCULAR HGB CONC 34.1 g/dL (33.0-37.0); MEAN PLATELET VOLUME 7.8 fL (7.2-11.7); RBC 3.23 Mil/uL (4.40-5.90); RED CELL DISTRIBUTION WIDTH 17.8 % (11.5-14.5)
[2017-09-01 06:34] LABS: WHITE BLOOD COUNT 0.5 K/uL (4.8-10.8)
--- NOTE | 2017-09-01 06:43 | PCM.PROC ---
Procedures Attestation:: I certify that I have explained the specified Operation(s) or Procedure(s), risks, benefits and reasonable alternatives to the Patient and/or other person responsible. The opportunity was given to ask questions and all questions answered - Central Line Placement Right Femoral Hemodialysis Access CVP Time Out Performed: Yes Pt. Placed on Pulse Ox Monitor: Yes Central Line Prep: Chlorhexidine-Alcohol Combination Local Anesthesia Used: Lidocaine 1% Amount of Anesthesia Used (mls): 1 Ultrasound Used for Placement: No Central Line Lumen Inserted: double Post Procedure: Sutured in Place, Good Blood Return, All Ports Aspirated, Flushed, Capped, Sterile Dressing Applied Secured by: Suture Post procedure dressing: Gauze, Chlorhexidine disc (Biopatch) Post Procedure X-Ray: No Patient Tolerated Procedure: Well Immediate Complications: None Additional Comments: HD cath placed for HD today
[2017-09-01] MEDS: Propofol 10 mg/ml 1,000 MG/100 ML VIAL IV PRN (06:49)
[2017-09-01] MEDS: Meropenem 500 MG in Sodium Chloride 0.9% 100 ML IVPB SCH ×3 (06:50→22:35)
[2017-09-01 06:55] LABS: ALBUMIN 2.6 g/dL (3.5-5.0); CALCIUM 4.9 mg/dl (8.6-10.4)
[2017-09-01 07:32] LABS: LYMPH % 85.1 % (20.0-40.0); MONO % 11.1 % (0.0-10.0); NEUT % 3.8 % (50.0-75.0)
[2017-09-01 07:33] LABS: LYMPH # 0.4 K/uL (1.0-4.3); MONO # 0.1 K/uL (0.0-0.8); NRBC % 2.9 % (0.0-2.0)
[2017-09-01] MEDS: Phenylephrine 30 MG in Dextrose 5% In Water 250 ML IV PRN ×2 (08:17→22:35)
[2017-09-01] MEDS: Acetaminophen 650mg/20.3ml solution UD PO PRN (08:19)
--- NOTE | 2017-09-01 09:53 | CP.CCUPN ---
<Yuko Hsieh - Last Filed: 09/01/17 17:21> CCU Subjective - Physician Review Subjective (Free Text): 61 yo male with PMHx of metastatic prostate cancer to bones presented with abdominal pain. He was admitted to the ICU in hypoxic respiratory failure 2/2 left sided PNA, requiring intubation. Pt seen and examined at bedside this morning. Unable to obtain ROS. Febrile overnight 102.7, Right femoral HD catheter placed-plan for HD today. Urine o/p~12ml/hr Bronch today w/ limited secretions suctioned. Inflammation noted 09/01/17 09:50 09/01/17 12:06 CCU Objective - Vital Signs / Intake & Output Vital Signs (Last 4 hours): Vital Signs Temp Pulse Resp BP Pulse Ox 09/01/17 08:19 101.9 F H 09/01/17 08:17 119/68 09/01/17 07:00 103 H 28 H 116/68 93 L 09/01/17 06:00 96 H 29 H 86/51 L 94 L Intake and Output (Last 8hrs): Intake & Output 08/31/17 09/01/17 09/01/17 22:59 06:59 14:59 Intake Total 2101.1 653.3 204.1 Output Total 130 105 10 Balance 1971.1 548.3 194.1 Intake: IV 213 70 130 Intake, IV Amount 1492.1 583.3 74.1 Right Forearm 37.1 38.3 6.6 Right Internal Jugular 155.0 145.0 17.5 Right Medial Port 400 400 50 Right Proximal Port 350 Right Wrist 550 Blood Product 296 Apheresis Plts Acda Lr 296 2nd Con Unit [id number] Other 100 Apheresis Plts Acda Lr 100 2nd Con Unit [id number] Output: Urine 130 105 10 Urethral (Benjamin) 130 105 10 Other: # Bowel Movements 1 - Physical Exam Head: Positive for: Atraumatic, Normocephalic Pupils: Positive for: Sluggish Mouth: Positive for: Moist Mucous Membranes Respiratory/Chest: Positive for: Decreased Breath Sounds (L>R) Cardiovascular: Positive for: Regular Rate and Rhythm. Negative for: Murmurs Abdomen: Positive for: Distention, Normal Bowel Sounds Upper Extremity: Positive for: Normal Inspection, Edema (edema developing). Negative for: Cyanosis Lower Extremity: Positive for: Normal Inspection, Edema (edema developing) Neurological: Negative for: GCS=15 Skin: Positive for: Normal Color, Hot Psychiatric: Negative for: Alert - Medications Active Medications: Active Medications Generic Name Dose Route Start Last Admin Trade Name Freq PRN Reason Stop Dose Admin Acetaminophen 650 mg 08/30/17 20:45 09/01/17 08:19 Tylenol 650mg/20.3ml Solution Ud PO 650 mg Q8 PRN Administration Fever >100.4 F Albuterol/Ipratropium 3 ml 08/29/17 08:00 Duoneb 3 Mg/0.5 Mg (3 Ml) Ud INH RQ4 RENAN Atovaquone 1,500 mg 08/27/17 13:30 08/31/17 09:58 Mepron PO 1,500 mg DAILY RENAN Administration Protocol Famotidine 20 mg 08/30/17 10:00 08/31/17 09:58 Pepcid IVP 20 mg DAILY RENAN Administration Hydrocortisone Sodium Succinate 50 mg 08/31/17 14:00 09/01/17 06:50 Solu-Cortef IV 50 mg Q8 RENAN Administration Propofol 1,000 mg in 100 mls @ 2.218 mls/hr 08/27/17 12:38 09/01/17 06:49 Diprivan IV 15 mcg/kg/min .Q24H PRN 6.654 mls/hr TITRATE PER MD ORDER Administration Protocol 5 MCG/KG/MIN Phenylephrine HCl 30 mg/ 253 mls @ 20.23 mls/hr 08/28/17 12:30 09/01/17 08:17 Dextrose IV 35 mcg/min .[id number] PRN 17.71 mls/hr TITRATE PER MD ORDER Administration Protocol 40 MCG/MIN Sodium Bicarbonate 75 meq/ 1,075 mls @ 50 mls/hr 08/31/17 10:00 08/31/17 11: 17 Sodium Chloride IV 50 mls/hr .[id number] RENAN Administration Azithromycin 250 mg/ Sodium 250 mls @ 250 mls/hr 09/01/17 17:00 Chloride IVPB Q24H RENAN Protocol Meropenem 500 mg/ Sodium 100 mls @ 100 mls/hr 09/01/17 06:00 09/01/17 06:50 Chloride IVPB 100 mls/hr Q8 RENAN Administration Protocol Micafungin Sodium 100 mg/ 100 mls @ 100 mls/hr 09/01/17 02:45 09/01/17 03:40 Sodium Chloride IV 100 mls/hr Q24H RENAN Administration Protocol Insulin Aspart 0 unit 08/27/17 18:00 09/01/17 06:56 Novolog SC Not Given Q6 [facility] Protocol Insulin Glargine 15 unit 08/30/17 10:00 08/31/17 09:57 Lantus SC 15 unit QAM RENAN Administration Lorazepam 1 mg 08/29/17 21:13 08/29/17 21:29 Ativan IVP 1 mg Q6H PRN Administration Anxiety Senna/Docusate Sodium 1 tab 08/28/17 10:00 08/31/17 09:58 Senokot S 50 Mg-8.6 Mg GT 1 tab DAILY RENAN Administration Vitamin B Complex/Vit C/Folic Acid 1 tab 09/01/17 08:00 Nephro-Chauncey PO 0800 RENAN - Patient Studies Lab Studies: Microbiology Studies 08/29/17 06:00 Gram Stain - Final Sputum Induced Sputum Culture - Final NORMAL ORAL ERIC Lab Studies 09/01/17 09/01/17 09/01/17 Range/Units 06:53 06:09 06:09 WBC (4.8-10.8) K/uL RBC (4.40-5.90) Mil/uL Hgb (12.0-18.0) g/dL Hct (35.0-51.0) % MCV (80.0-94.0) fL MCH (27.0-31.0) pg MCHC (33.0-37.0) g/dL RDW (11.5-14.5) % Plt Count (130-400) K/uL MPV (7.2-11.7) fL Neut % (Auto) (50.0-75.0) % Lymph % (Auto) (20.0-40.0) % [place] % (Auto) (0.0-10.0) % Eos % (Auto) (0.0-4.0) % Baso % (Auto) (0.0-2.0) % Neut # (Auto) (1.8-7.0) K/uL Lymph # (Auto) (1.0-4.3) K/uL [place] # (Auto) (0.0-0.8) K/uL Eos # (Auto) (0.0-0.7) K/uL Baso # (Auto) (0.0-0.2) K/uL Total Counted Neutrophils % (Manual) Band Neutrophils % Lymphocytes % (Manual) Reactive Lymphs % Monocytes % (Manual) Eosinophils % (Manual) Basophils % (Manual) Metamyelocytes % Myelocytes % Promyelocytes % Blast Cells % Plasma Cell % (Manual) Nucleated RBC % Hypersegmented Polys Smudge Cells Toxic Granulation Dohle Bodies Vonda Rods Platelet Estimate Plt Clumps, EDTA Large Platelets Giant Platelets RBC Morphology Polychromasia Hypochromasia (manual) Poikilocytosis (manual Basophilic Stippling Anisocytosis (manual) Microcytosis (manual) Macrocytosis (manual) Spherocytes Sickle Cells Target Cells Tear Drop Cells Ovalocytes Stomatocytes Helmet Cells [place] Bodies [place] Cells Acanthocytes (Spur) Rouleaux Schistocytes PT (9.7-12.2) SECONDS INR APTT (21-34) SECONDS Puncture Site pCO2 (35-45) mm/Hg pO2 (80-100) mm/Hg HCO3 (21-28) mmol/L ABG pH (7.35-7.45) ABG Total CO2 (22-28) mmol/L ABG O2 Saturation (95-98) % ABG Base Excess (-2.0-3.0) mmol/L ABG Hemoglobin (11.7-17.4) g/dL ABG Carboxyhemoglobin (0.5-1.5) % POC ABG HHb (Measured) (0.0-5.0) % ABG Methemoglobin (0.0-3.0) % Harpreet Test A-a O2 Difference mm/Hg Respiratory Index Hgb O2 Saturation (95.0-98.0) % Vent Mode Mechanical Rate FiO2 % Tidal Volume PEEP Sodium (132-148) mmol/L Potassium (3.6-5.2) mmol/L Chloride (98-107) mmol/L Carbon Dioxide (22-30) mmol/L Anion Gap (10-20) BUN (9-20) mg/dL Creatinine (0.8-1.5) mg/dL Est GFR ( Amer) Est GFR (Non-Af Amer) POC Glucose (mg/dL) 125 H (65-110) mg/dL Random Glucose (75-110) mg/dL Calcium (8.6-10.4) mg/dl Phosphorus (2.5-4.5) mg/dL Magnesium (1.6-2.3) mg/dL Total Bilirubin (0.2-1.3) mg/dL AST (17-59) U/L ALT (21-72) U/L Alkaline Phosphatase (38-126) U/L Total Protein (6.3-8.3) g/dL Albumin (3.5-5.0) g/dL Globulin (2.2-3.9) gm/dL Albumin/Globulin Ratio (1.0-2.1) Random Vancomycin 10.1 ug/mL Hep Bs Antigen (NEGATIVE) Hep Bs Antibody (NEGATIVE) Hep B Core IgM Ab (NEGATIVE) Hepatitis C Antibody (NEGATIVE) HIV 1&2 Antibody Screen Negative (NEGATIVE) 09/01/17 09/01/17 09/01/17 Range/Units 06:09 06:08 05:30 WBC 0.5 L* (4.8-10.8) K/uL RBC 3.23 L (4.40-5.90) Mil/uL Hgb 9.3 L (12.0-18.0) g/dL Hct 27.3 L (35.0-51.0) % MCV 84.5 (80.0-94.0) fL MCH 28.8 (27.0-31.0) pg MCHC 34.1 (33.0-37.0) g/dL RDW 17.8 H (11.5-14.5) % Plt Count 48 L D (130-400) K/uL MPV 7.8 (7.2-11.7) fL Neut % (Auto) 3.8 L (50.0-75.0) % Lymph % (Auto) 85.1 H (20.0-40.0) % [place] % (Auto) 11.1 H (0.0-10.0) % Eos % (Auto) 0.0 (0.0-4.0) % Baso % (Auto) 0.0 (0.0-2.0) % Neut # (Auto) 0.0 L (1.8-7.0) K/uL Lymph # (Auto) 0.4 L (1.0-4.3) K/uL [place] # (Auto) 0.1 (0.0-0.8) K/uL Eos # (Auto) 0.0 (0.0-0.7) K/uL Baso # (Auto) 0.0 (0.0-0.2) K/uL Total Counted Cancelled Neutrophils % (Manual) Cancelled Band Neutrophils % Cancelled Lymphocytes % (Manual) Cancelled Reactive Lymphs % Cancelled Monocytes % (Manual) Cancelled Eosinophils % (Manual) Cancelled Basophils % (Manual) Cancelled Metamyelocytes % Cancelled Myelocytes % Cancelled Promyelocytes % Cancelled Blast Cells % Cancelled Plasma Cell % (Manual) Cancelled Nucleated RBC % Cancelled Hypersegmented Polys Cancelled Smudge Cells Cancelled Toxic Granulation Cancelled Dohle Bodies Cancelled Vonda Rods Cancelled Platelet Estimate Cancelled Plt Clumps, EDTA Cancelled Large Platelets Cancelled Giant Platelets Cancelled RBC Morphology Cancelled Polychromasia Cancelled Hypochromasia (manual) Cancelled Poikilocytosis (manual Cancelled Basophilic Stippling Cancelled Anisocytosis (manual) Cancelled Microcytosis (manual) Cancelled Macrocytosis (manual) Cancelled Spherocytes Cancelled Sickle Cells Cancelled Target Cells Cancelled Tear Drop Cells Cancelled Ovalocytes Cancelled Stomatocytes Cancelled Helmet Cells Cancelled [place] Bodies Cancelled [place] Cells Cancelled Acanthocytes (Spur) Cancelled Rouleaux Cancelled Schistocytes Cancelled PT (9.7-12.2) SECONDS INR APTT (21-34) SECONDS Puncture Site Lr pCO2 32 L (35-45) mm/Hg pO2 68 L (80-100) mm/Hg HCO3 18.6 L (21-28) mmol/L ABG pH 7.33 L (7.35-7.45) ABG Total CO2 17.9 L (22-28) mmol/L ABG O2 Saturation 95.3 (95-98) % ABG Base Excess -8.0 L (-2.0-3.0) mmol/L ABG Hemoglobin 12.8 (11.7-17.4) g/dL ABG Carboxyhemoglobin 1.4 (0.5-1.5) % POC ABG HHb (Measured) 4.6 (0.0-5.0) % ABG Methemoglobin 1.0 (0.0-3.0) % Harpreet Test Pos A-a O2 Difference 320.0 mm/Hg Respiratory Index 4.7 Hgb O2 Saturation 93.0 L (95.0-98.0) % Vent Mode Prvc Mechanical Rate 25 FiO2 60.0 % Tidal Volume 450 PEEP 6 Sodium 133 (132-148) mmol/L Potassium 4.5 (3.6-5.2) mmol/L Chloride 98 (98-107) mmol/L Carbon Dioxide 18 L (22-30) mmol/L Anion Gap 22 H (10-20) BUN 103 H* D (9-20) mg/dL Creatinine 3.9 H (0.8-1.5) mg/dL Est GFR ( Amer) 19 Est GFR (Non-Af Amer) 16 POC Glucose (mg/dL) (65-110) mg/dL Random Glucose 123 H (75-110) mg/dL Calcium 4.9 L* (8.6-10.4) mg/dl Phosphorus 5.1 H (2.5-4.5) mg/dL Magnesium 2.3 (1.6-2.3) mg/dL Total Bilirubin 7.9 H (0.2-1.3) mg/dL AST 61 H (17-59) U/L ALT 52 (21-72) U/L Alkaline Phosphatase 155 H (38-126) U/L Total Protein 5.3 L (6.3-8.3) g/dL Albumin 2.6 L (3.5-5.0) g/dL Globulin 2.7 (2.2-3.9) gm/dL Albumin/Globulin Ratio 1.0 (1.0-2.1) Random Vancomycin ug/mL Hep Bs Antigen (NEGATIVE) Hep Bs Antibody (NEGATIVE) Hep B Core IgM Ab (NEGATIVE) Hepatitis C Antibody (NEGATIVE) HIV 1&2 Antibody Screen (NEGATIVE) 08/31/17 08/31/17 08/31/17 Range/Units 23:46 17:27 14:07 WBC (4.8-10.8) K/uL RBC (4.40-5.90) Mil/uL Hgb (12.0-18.0) g/dL Hct (35.0-51.0) % MCV (80.0-94.0) fL MCH (27.0-31.0) pg MCHC (33.0-37.0) g/dL RDW (11.5-14.5) % Plt Count (130-400) K/uL MPV (7.2-11.7) fL Neut % (Auto) (50.0-75.0) % Lymph % (Auto) (20.0-40.0) % [place] % (Auto) (0.0-10.0) % Eos % (Auto) (0.0-4.0) % Baso % (Auto) (0.0-2.0) % Neut # (Auto) (1.8-7.0) K/uL Lymph # (Auto) (1.0-4.3) K/uL [place] # (Auto) (0.0-0.8) K/uL Eos # (Auto) (0.0-0.7) K/uL Baso # (Auto) (0.0-0.2) K/uL Total Counted Neutrophils % (Manual) Band Neutrophils % Lymphocytes % (Manual) Reactive Lymphs % Monocytes % (Manual) Eosinophils % (Manual) Basophils % (Manual) Metamyelocytes % Myelocytes % Promyelocytes % Blast Cells % Plasma Cell % (Manual) Nucleated RBC % Hypersegmented Polys Smudge Cells Toxic Granulation Dohle Bodies Vonda Rods Platelet Estimate Plt Clumps, EDTA Large Platelets Giant Platelets RBC Morphology Polychromasia Hypochromasia (manual) Poikilocytosis (manual Basophilic Stippling Anisocytosis (manual) Microcytosis (manual) Macrocytosis (manual) Spherocytes Sickle Cells Target Cells Tear Drop Cells Ovalocytes Stomatocytes Helmet Cells [place] Bodies [place] Cells Acanthocytes (Spur) Rouleaux Schistocytes PT 15.4 H (9.7-12.2) SECONDS INR 1.4 APTT 36 H D (21-34) SECONDS Puncture Site pCO2 (35-45) mm/Hg pO2 (80-100) mm/Hg HCO3 (21-28) mmol/L ABG pH (7.35-7.45) ABG Total CO2 (22-28) mmol/L ABG O2 Saturation (95-98) % ABG Base Excess (-2.0-3.0) mmol/L ABG Hemoglobin (11.7-17.4) g/dL ABG Carboxyhemoglobin (0.5-1.5) % POC ABG HHb (Measured) (0.0-5.0) % ABG Methemoglobin (0.0-3.0) % Harpreet Test A-a O2 Difference mm/Hg Respiratory Index Hgb O2 Saturation (95.0-98.0) % Vent Mode Mechanical Rate FiO2 % Tidal Volume PEEP Sodium (132-148) mmol/L Potassium (3.6-5.2) mmol/L Chloride (98-107) mmol/L Carbon Dioxide (22-30) mmol/L Anion Gap (10-20) BUN (9-20) mg/dL Creatinine (0.8-1.5) mg/dL Est GFR ( Amer) Est GFR (Non-Af Amer) POC Glucose (mg/dL) 123 H 125 H (65-110) mg/dL Random Glucose (75-110) mg/dL Calcium (8.6-10.4) mg/dl Phosphorus (2.5-4.5) mg/dL Magnesium (1.6-2.3) mg/dL Total Bilirubin (0.2-1.3) mg/dL AST (17-59) U/L ALT (21-72) U/L Alkaline Phosphatase (38-126) U/L Total Protein (6.3-8.3) g/dL Albumin (3.5-5.0) g/dL Globulin (2.2-3.9) gm/dL Albumin/Globulin Ratio (1.0-2.1) Random Vancomycin ug/mL Hep Bs Antigen (NEGATIVE) Hep Bs Antibody (NEGATIVE) Hep B Core IgM Ab (NEGATIVE) Hepatitis C Antibody (NEGATIVE) HIV 1&2 Antibody Screen (NEGATIVE) 08/31/17 08/31/17 08/31/17 Range/Units 14:07 13:51 13:51 WBC 0.5 L* (4.8-10.8) K/uL RBC 3.41 L (4.40-5.90) Mil/uL Hgb 10.1 L (12.0-18.0) g/dL Hct 28.9 L (35.0-51.0) % MCV 84.9 (80.0-94.0) fL MCH 29.5 (27.0-31.0) pg MCHC 34.8 (33.0-37.0) g/dL RDW 18.1 H (11.5-14.5) % Plt Count 25 L* (130-400) K/uL MPV 8.3 (7.2-11.7) fL Neut % (Auto) 19.8 L (50.0-75.0) % Lymph % (Auto) 52.0 H (20.0-40.0) % [place] % (Auto) 26.6 H (0.0-10.0) % Eos % (Auto) 1.6 (0.0-4.0) % Baso % (Auto) 0.0 (0.0-2.0) % Neut # (Auto) 0.1 L (1.8-7.0) K/uL Lymph # (Auto) 0.2 L (1.0-4.3) K/uL [place] # (Auto) 0.1 (0.0-0.8) K/uL Eos # (Auto) 0.0 (0.0-0.7) K/uL Baso # (Auto) 0.0 (0.0-0.2) K/uL Total Counted Cancelled Neutrophils % (Manual) Cancelled Band Neutrophils % Cancelled Lymphocytes % (Manual) Cancelled Reactive Lymphs % Cancelled Monocytes % (Manual) Cancelled Eosinophils % (Manual) Cancelled Basophils % (Manual) Cancelled Metamyelocytes % Cancelled Myelocytes % Cancelled Promyelocytes % Cancelled Blast Cells % Cancelled Plasma Cell % (Manual) Cancelled Nucleated RBC % Cancelled Hypersegmented Polys Cancelled Smudge Cells Cancelled Toxic Granulation Cancelled Dohle Bodies Cancelled Vonda Rods Cancelled Platelet Estimate Cancelled Plt Clumps, EDTA Cancelled Large Platelets Cancelled Giant Platelets Cancelled RBC Morphology Cancelled Polychromasia Cancelled Hypochromasia (manual) Cancelled Poikilocytosis (manual Cancelled Basophilic Stippling Cancelled Anisocytosis (manual) Cancelled Microcytosis (manual) Cancelled Macrocytosis (manual) Cancelled Spherocytes Cancelled Sickle Cells Cancelled Target Cells Cancelled Tear Drop Cells Cancelled Ovalocytes Cancelled Stomatocytes Cancelled Helmet Cells Cancelled [place] Bodies Cancelled [place] Cells Cancelled Acanthocytes (Spur) Cancelled Rouleaux Cancelled Schistocytes Cancelled PT (9.7-12.2) SECONDS INR APTT (21-34) SECONDS Puncture Site pCO2 (35-45) mm/Hg pO2 (80-100) mm/Hg HCO3 (21-28) mmol/L ABG pH (7.35-7.45) ABG Total CO2 (22-28) mmol/L ABG O2 Saturation (95-98) % ABG Base Excess (-2.0-3.0) mmol/L ABG Hemoglobin (11.7-17.4) g/dL ABG Carboxyhemoglobin (0.5-1.5) % POC ABG HHb (Measured) (0.0-5.0) % ABG Methemoglobin (0.0-3.0) % Harpreet Test A-a O2 Difference mm/Hg Respiratory Index Hgb O2 Saturation (95.0-98.0) % Vent Mode Mechanical Rate FiO2 % Tidal Volume PEEP Sodium (132-148) mmol/L Potassium (3.6-5.2) mmol/L Chloride (98-107) mmol/L Carbon Dioxide (22-30) mmol/L Anion Gap (10-20) BUN (9-20) mg/dL Creatinine (0.8-1.5) mg/dL Est GFR ( Amer) Est GFR (Non-Af Amer) POC Glucose (mg/dL) (65-110) mg/dL Random Glucose (75-110) mg/dL Calcium (8.6-10.4) mg/dl Phosphorus (2.5-4.5) mg/dL Magnesium (1.6-2.3) mg/dL Total Bilirubin (0.2-1.3) mg/dL AST (17-59) U/L ALT (21-72) U/L Alkaline Phosphatase (38-126) U/L Total Protein (6.3-8.3) g/dL Albumin (3.5-5.0) g/dL Globulin (2.2-3.9) gm/dL Albumin/Globulin Ratio (1.0-2.1) Random Vancomycin ug/mL Hep Bs Antigen Negative (NEGATIVE) Hep Bs Antibody Negative (NEGATIVE) Hep B Core IgM Ab Negative (NEGATIVE) Hepatitis C Antibody Negative (NEGATIVE) HIV 1&2 Antibody Screen (NEGATIVE) 08/31/17 08/31/17 Range/Units 11:42 06:15 WBC (4.8-10.8) K/uL RBC (4.40-5.90) Mil/uL Hgb (12.0-18.0) g/dL Hct (35.0-51.0) % MCV (80.0-94.0) fL MCH (27.0-31.0) pg MCHC (33.0-37.0) g/dL RDW (11.5-14.5) % Plt Count (130-400) K/uL MPV (7.2-11.7) fL Neut % (Auto) 11.1 L (50.0-75.0) % Lymph % (Auto) 75.8 H (20.0-40.0) % [place] % (Auto) 12.9 H (0.0-10.0) % Eos % (Auto) 0.2 (0.0-4.0) % Baso % (Auto) 0.0 (0.0-2.0) % Neut # (Auto) 0.1 L (1.8-7.0) K/uL Lymph # (Auto) 0.3 L (1.0-4.3) K/uL [place] # (Auto) 0.1 (0.0-0.8) K/uL Eos # (Auto) 0.0 (0.0-0.7) K/uL Baso # (Auto) 0.0 (0.0-0.2) K/uL Total Counted Cancelled Neutrophils % (Manual) Cancelled Band Neutrophils % Cancelled Lymphocytes % (Manual) Cancelled Reactive Lymphs % Cancelled Monocytes % (Manual) Cancelled Eosinophils % (Manual) Cancelled Basophils % (Manual) Cancelled Metamyelocytes % Cancelled Myelocytes % Cancelled Promyelocytes % Cancelled Blast Cells % Cancelled Plasma Cell % (Manual) Cancelled Nucleated RBC % Cancelled Hypersegmented Polys Cancelled Smudge Cells Cancelled Toxic Granulation Cancelled Dohle Bodies Cancelled Vonda Rods Cancelled Platelet Estimate Cancelled Plt Clumps, EDTA Cancelled Large Platelets Cancelled Giant Platelets Cancelled RBC Morphology Cancelled Polychromasia Cancelled Hypochromasia (manual) Cancelled Poikilocytosis (manual Cancelled Basophilic Stippling Cancelled Anisocytosis (manual) Cancelled Microcytosis (manual) Cancelled Macrocytosis (manual) Cancelled Spherocytes Cancelled Sickle Cells Cancelled Target Cells Cancelled Tear Drop Cells Cancelled Ovalocytes Cancelled Stomatocytes Cancelled Helmet Cells Cancelled [place] Bodies Cancelled [place] Cells Cancelled Acanthocytes (Spur) Cancelled Rouleaux Cancelled Schistocytes Cancelled PT (9.7-12.2) SECONDS INR APTT (21-34) SECONDS Puncture Site pCO2 (35-45) mm/Hg pO2 (80-100) mm/Hg HCO3 (21-28) mmol/L ABG pH (7.35-7.45) ABG Total CO2 (22-28) mmol/L ABG O2 Saturation (95-98) % ABG Base Excess (-2.0-3.0) mmol/L ABG Hemoglobin (11.7-17.4) g/dL ABG Carboxyhemoglobin (0.5-1.5) % POC ABG HHb (Measured) (0.0-5.0) % ABG Methemoglobin (0.0-3.0) % Harpreet Test A-a O2 Difference mm/Hg Respiratory Index Hgb O2 Saturation (95.0-98.0) % Vent Mode Mechanical Rate FiO2 % Tidal Volume PEEP Sodium (132-148) mmol/L Potassium (3.6-5.2) mmol/L Chloride (98-107) mmol/L Carbon Dioxide (22-30) mmol/L Anion Gap (10-20) BUN (9-20) mg/dL Creatinine (0.8-1.5) mg/dL Est GFR ( Amer) Est GFR (Non-Af Amer) POC Glucose (mg/dL) 156 H (65-110) mg/dL Random Glucose (75-110) mg/dL Calcium (8.6-10.4) mg/dl Phosphorus (2.5-4.5) mg/dL Magnesium (1.6-2.3) mg/dL Total Bilirubin (0.2-1.3) mg/dL AST (17-59) U/L ALT (21-72) U/L Alkaline Phosphatase (38-126) U/L Total Protein (6.3-8.3) g/dL Albumin (3.5-5.0) g/dL Globulin (2.2-3.9) gm/dL Albumin/Globulin Ratio (1.0-2.1) Random Vancomycin ug/mL Hep Bs Antigen (NEGATIVE) Hep Bs Antibody (NEGATIVE) Hep B Core IgM Ab (NEGATIVE) Hepatitis C Antibody (NEGATIVE) HIV 1&2 Antibody Screen (NEGATIVE) Laboratory Results - last 24 hr 08/31/17 08/31/17 08/31/17 06:15 11:42 13:51 WBC RBC Hgb Hct MCV MCH MCHC RDW Plt Count MPV Neut % (Auto) 11.1 L Lymph % (Auto) 75.8 H [place] % (Auto) 12.9 H Eos % (Auto) 0.2 Baso % (Auto) 0.0 Neut # (Auto) 0.1 L Lymph # (Auto) 0.3 L [place] # (Auto) 0.1 Eos # (Auto) 0.0 Baso # (Auto) 0.0 Total Counted Cancelled Neutrophils % (Manual) Cancelled Band Neutrophils % Cancelled Lymphocytes % (Manual) Cancelled Reactive Lymphs % Cancelled Monocytes % (Manual) Cancelled Eosinophils % (Manual) Cancelled Basophils % (Manual) Cancelled Metamyelocytes % Cancelled Myelocytes % Cancelled Promyelocytes % Cancelled Blast Cells % Cancelled Plasma Cell % (Manual) Cancelled Nucleated RBC % Cancelled Hypersegmented Polys Cancelled Smudge Cells Cancelled Toxic Granulation Cancelled Dohle Bodies Cancelled Vonda Rods Cancelled Platelet Estimate Cancelled Plt Clumps, EDTA Cancelled Large Platelets Cancelled Giant Platelets Cancelled RBC Morphology Cancelled Polychromasia Cancelled Hypochromasia (manual) Cancelled Poikilocytosis (manual Cancelled Basophilic Stippling Cancelled Anisocytosis (manual) Cancelled Microcytosis (manual) Cancelled Macrocytosis (manual) Cancelled Spherocytes Cancelled Sickle Cells Cancelled Target Cells Cancelled Tear Drop Cells Cancelled Ovalocytes Cancelled Stomatocytes Cancelled Helmet Cells Cancelled [place] Bodies Cancelled [place] Cells Cancelled Acanthocytes (Spur) Cancelled Rouleaux Cancelled Schistocytes Cancelled PT INR APTT Puncture Site pCO2 pO2 HCO3 ABG pH ABG Total CO2 ABG O2 Saturation ABG Base Excess ABG Hemoglobin ABG Carboxyhemoglobin POC ABG HHb (Measured) ABG Methemoglobin Harpreet Test A-a O2 Difference Respiratory Index Hgb O2 Saturation Vent Mode Mechanical Rate FiO2 Tidal Volume PEEP Sodium Potassium Chloride Carbon Dioxide Anion Gap BUN Creatinine Est GFR ( Amer) Est GFR (Non-Af Amer) POC Glucose (mg/dL) 156 H Random Glucose Calcium Phosphorus Magnesium Total Bilirubin AST ALT Alkaline Phosphatase Total Protein Albumin Globulin Albumin/Globulin Ratio Random Vancomycin Hep Bs Antigen Negative Hep Bs Antibody Hep B Core IgM Ab Negative Hepatitis C Antibody Negative HIV 1&2 Antibody Screen 08/31/17 08/31/17 08/31/17 13:51 14:07 14:07 WBC 0.5 L* RBC 3.41 L Hgb 10.1 L Hct 28.9 L MCV 84.9 MCH 29.5 MCHC 34.8 RDW 18.1 H Plt Count 25 L* MPV 8.3 Neut % (Auto) 19.8 L Lymph % (Auto) 52.0 H [place] % (Auto) 26.6 H Eos % (Auto) 1.6 Baso % (Auto) 0.0 Neut # (Auto) 0.1 L Lymph # (Auto) 0.2 L [place] # (Auto) 0.1 Eos # (Auto) 0.0 Baso # (Auto) 0.0 Total Counted Cancelled Neutrophils % (Manual) Cancelled Band Neutrophils % Cancelled Lymphocytes % (Manual) Cancelled Reactive Lymphs % Cancelled Monocytes % (Manual) Cancelled Eosinophils % (Manual) Cancelled Basophils % (Manual) Cancelled Metamyelocytes % Cancelled Myelocytes % Cancelled Promyelocytes % Cancelled Blast Cells % Cancelled Plasma Cell % (Manual) Cancelled Nucleated RBC % Cancelled Hypersegmented Polys Cancelled Smudge Cells Cancelled Toxic Granulation Cancelled Dohle Bodies Cancelled Vonda Rods Cancelled Platelet Estimate Cancelled Plt Clumps, EDTA Cancelled Large Platelets Cancelled Giant Platelets Cancelled RBC Morphology Cancelled Polychromasia Cancelled Hypochromasia (manual) Cancelled Poikilocytosis (manual Cancelled Basophilic Stippling Cancelled Anisocytosis (manual) Cancelled Microcytosis (manual) Cancelled Macrocytosis (manual) Cancelled Spherocytes Cancelled Sickle Cells Cancelled Target Cells Cancelled Tear Drop Cells Cancelled Ovalocytes Cancelled Stomatocytes Cancelled Helmet Cells Cancelled Mac-[place]pine [place] Bodies Cancelled [place] Cells Cancelled Acanthocytes (Spur) Cancelled Rouleaux Cancelled Schistocytes Cancelled PT 15.4 H INR 1.4 APTT 36 H D Puncture Site pCO2 pO2 HCO3 ABG pH ABG Total CO2 ABG O2 Saturation ABG Base Excess ABG Hemoglobin ABG Carboxyhemoglobin POC ABG HHb (Measured) ABG Methemoglobin Harpreet Test A-a O2 Difference Respiratory Index Hgb O2 Saturation Vent Mode Mechanical Rate FiO2 Tidal Volume PEEP Sodium Potassium Chloride Carbon Dioxide Anion Gap BUN Creatinine Est GFR ( Amer) Est GFR (Non-Af Amer) POC Glucose (mg/dL) Random Glucose Calcium Phosphorus Magnesium Total Bilirubin AST ALT Alkaline Phosphatase Total Protein Albumin Globulin Albumin/Globulin Ratio Random Vancomycin Hep Bs Antigen Hep Bs Antibody Negative Hep B Core IgM Ab Hepatitis C Antibody HIV 1&2 Antibody Screen 08/31/17 08/31/17 09/01/17 17:27 23:46 05:30 WBC RBC Hgb Hct MCV MCH MCHC RDW Plt Count MPV Neut % (Auto) Lymph % (Auto) [place] % (Auto) Eos % (Auto) Baso % (Auto) Neut # (Auto) Lymph # (Auto) [place] # (Auto) Eos # (Auto) Baso # (Auto) Total Counted Neutrophils % (Manual) Band Neutrophils % Lymphocytes % (Manual) Reactive Lymphs % Monocytes % (Manual) Eosinophils % (Manual) Basophils % (Manual) Metamyelocytes % Myelocytes % Promyelocytes % Blast Cells % Plasma Cell % (Manual) Nucleated RBC % Hypersegmented Polys Smudge Cells Toxic Granulation Dohle Bodies Vonda Rods Platelet Estimate Plt Clumps, EDTA Large Platelets Giant Platelets RBC Morphology Polychromasia Hypochromasia (manual) Poikilocytosis (manual Basophilic Stippling Anisocytosis (manual) Microcytosis (manual) Macrocytosis (manual) Spherocytes Sickle Cells Target Cells Tear Drop Cells Ovalocytes Stomatocytes Helmet Cells [place] Bodies [place] Cells Acanthocytes (Spur) Rouleaux Schistocytes PT INR APTT Puncture Site Lr pCO2 32 L pO2 68 L HCO3 18.6 L ABG pH 7.33 L ABG Total CO2 17.9 L ABG O2 Saturation 95.3 ABG Base Excess -8.0 L ABG Hemoglobin 12.8 ABG Carboxyhemoglobin 1.4 POC ABG HHb (Measured) 4.6 ABG Methemoglobin 1.0 Harpreet Test Pos A-a O2 Difference 320.0 Respiratory Index 4.7 Hgb O2 Saturation 93.0 L Vent Mode Prvc Mechanical Rate 25 FiO2 60.0 Tidal Volume 450 PEEP 6 Sodium Potassium Chloride Carbon Dioxide Anion Gap BUN Creatinine Est GFR ( Amer) Est GFR (Non-Af Amer) POC Glucose (mg/dL) 125 H 123 H Random Glucose Calcium Phosphorus Magnesium Total Bilirubin AST ALT Alkaline Phosphatase Total Protein Albumin Globulin Albumin/Globulin Ratio Random Vancomycin Hep Bs Antigen Hep Bs Antibody Hep B Core IgM Ab Hepatitis C Antibody HIV 1&2 Antibody Screen 09/01/17 09/01/17 09/01/17 06:08 06:09 06:09 WBC 0.5 L* RBC 3.23 L Hgb 9.3 L Hct 27.3 L MCV 84.5 MCH 28.8 MCHC 34.1 RDW 17.8 H Plt Count 48 L D MPV 7.8 Neut % (Auto) 3.8 L Lymph % (Auto) 85.1 H [place] % (Auto) 11.1 H Eos % (Auto) 0.0 Baso % (Auto) 0.0 Neut # (Auto) 0.0 L Lymph # (Auto) 0.4 L [place] # (Auto) 0.1 Eos # (Auto) 0.0 Baso # (Auto) 0.0 Total Counted Cancelled Neutrophils % (Manual) Cancelled Band Neutrophils % Cancelled Lymphocytes % (Manual) Cancelled Reactive Lymphs % Cancelled Monocytes % (Manual) Cancelled Eosinophils % (Manual) Cancelled Basophils % (Manual) Cancelled Metamyelocytes % Cancelled Myelocytes % Cancelled Promyelocytes % Cancelled Blast Cells % Cancelled Plasma Cell % (Manual) Cancelled Nucleated RBC % Cancelled Hypersegmented Polys Cancelled Smudge Cells Cancelled Toxic Granulation Cancelled Dohle Bodies Cancelled Vonda Rods Cancelled Platelet Estimate Cancelled Plt Clumps, EDTA Cancelled Large Platelets Cancelled Giant Platelets Cancelled RBC Morphology Cancelled Polychromasia Cancelled Hypochromasia (manual) Cancelled Poikilocytosis (manual Cancelled Basophilic Stippling Cancelled Anisocytosis (manual) Cancelled Microcytosis (manual) Cancelled Macrocytosis (manual) Cancelled Spherocytes Cancelled Sickle Cells Cancelled Target Cells Cancelled Tear Drop Cells Cancelled Ovalocytes Cancelled Stomatocytes Cancelled Helmet Cells Cancelled [place] Bodies Cancelled [place] Cells Cancelled Acanthocytes (Spur) Cancelled Rouleaux Cancelled Schistocytes Cancelled PT INR APTT Puncture Site pCO2 pO2 HCO3 ABG pH ABG Total CO2 ABG O2 Saturation ABG Base Excess ABG Hemoglobin ABG Carboxyhemoglobin POC ABG HHb (Measured) ABG Methemoglobin Harpreet Test A-a O2 Difference Respiratory Index Hgb O2 Saturation Vent Mode Mechanical Rate FiO2 Tidal Volume PEEP Sodium 133 Potassium 4.5 Chloride 98 Carbon Dioxide 18 L Anion Gap 22 H BUN 103 H* D Creatinine 3.9 H Est GFR ( Amer) 19 Est GFR (Non-Af Amer) 16 POC Glucose (mg/dL) Random Glucose 123 H Calcium 4.9 L* Phosphorus 5.1 H Magnesium 2.3 Total Bilirubin 7.9 H AST 61 H ALT 52 Alkaline Phosphatase 155 H Total Protein 5.3 L Albumin 2.6 L Globulin 2.7 Albumin/Globulin Ratio 1.0 Random Vancomycin 10.1 Hep Bs Antigen Hep Bs Antibody Hep B Core IgM Ab Hepatitis C Antibody HIV 1&2 Antibody Screen 09/01/17 09/01/17 06:09 06:53 WBC RBC Hgb Hct MCV MCH MCHC RDW Plt Count MPV Neut % (Auto) Lymph % (Auto) [place] % (Auto) Eos % (Auto) Baso % (Auto) Neut # (Auto) Lymph # (Auto) [place] # (Auto) Eos # (Auto) Baso # (Auto) Total Counted Neutrophils % (Manual) Band Neutrophils % Lymphocytes % (Manual) Reactive Lymphs % Monocytes % (Manual) Eosinophils % (Manual) Basophils % (Manual) Metamyelocytes % Myelocytes % Promyelocytes % Blast Cells % Plasma Cell % (Manual) Nucleated RBC % Hypersegmented Polys Smudge Cells Toxic Granulation Dohle Bodies Vonda Rods Platelet Estimate Plt Clumps, EDTA Large Platelets Giant Platelets RBC Morphology Polychromasia Hypochromasia (manual) Poikilocytosis (manual Basophilic Stippling Anisocytosis (manual) Microcytosis (manual) Macrocytosis (manual) Spherocytes Sickle Cells Target Cells Tear Drop Cells Ovalocytes Stomatocytes Helmet Cells [place] Bodies [place] Cells Acanthocytes (Spur) Rouleaux Schistocytes PT INR APTT Puncture Site pCO2 pO2 HCO3 ABG pH ABG Total CO2 ABG O2 Saturation ABG Base Excess ABG Hemoglobin ABG Carboxyhemoglobin POC ABG HHb (Measured) ABG Methemoglobin Harpreet Test A-a O2 Difference Respiratory Index Hgb O2 Saturation Vent Mode Mechanical Rate FiO2 Tidal Volume PEEP Sodium Potassium Chloride Carbon Dioxide Anion Gap BUN Creatinine Est GFR ( Amer) Est GFR (Non-Af Amer) POC Glucose (mg/dL) 125 H Random Glucose Calcium Phosphorus Magnesium Total Bilirubin AST ALT Alkaline Phosphatase Total Protein Albumin Globulin Albumin/Globulin Ratio Random Vancomycin Hep Bs Antigen Hep Bs Antibody Hep B Core IgM Ab Hepatitis C Antibody HIV 1&2 Antibody Screen Negative Fingerstick Blood Sugar Results: 125 Review of Systems - Review of Systems Systems not reviewed;Unavailable: Intubated Assessment/Plan - Assessment and Plan (Free Text) Assessment: 1. Acute hypoxic respiratory failure 2/2 Lg + PNA -bronch revealed limited secretions -Abx-Mepron 1500mg PO, Azithromycin 250mg IVPB Q24, merrem 500mg q8, micafungin 100mg q24 -Dr. Pace consult ID -Continue ventilation to keep spO2 >92 and pH b/w 7.35-7.45, -continue bronchodilators -IV steroids -peep decreased to 6 2. Septic shock -decrease IVF to 50ml/hr -titrate down norepinephrine -solu-cortef 50mg q8 3. Chronic systolic heart failure -f/u echo 4. HUSSAIN -urine output~12ml/hr, goal >.5ml/kg/hr -avoid nephrotoxic drugs -right femoral HD catheter placed 09/01 -to receive HD today 5. Anemia-anemia of chronic disease -fecal occult blood -iron profile -folate/b12 6. Neutropenia -febrile ON~102.7, ice packs, Tylenol, monitor -granix 480mg sc -neutropenic precaution 7. GI -resume nepro feeds at 15/hr 8. thrombocytopenia -transfused 1U platelets 08/31 -platelets today 48 9. Transaminitis -most likely 2/2 shock -monitor -avoid hepatotoxic drugs 10. Electrolyte disturbance -monitor and replete as needed -HD today -hypocalcemia 4.9, corrected Ca 6.1, given 2,000mg of CaGluc 11. Skin -supplemental MVI/vitamin C + turn q2 hrs Ppx -pepcid 20mg IVP -SCD -Goals of care discussed with family Case discussed with Dr. Escobar <Oleksandr Escobar - Last Filed: 09/01/17 18:21> CCU Objective - Vital Signs / Intake & Output Vital Signs (Last 4 hours): Vital Signs Temp Pulse Resp BP Pulse Ox 09/01/17 16:39 118 H 32 H 104/65 100 09/01/17 16:24 116 H 34 H 108/69 100 09/01/17 16:09 117 H 33 H 103/72 100 09/01/17 16:00 99.2 F 116 H 33 H 100 09/01/17 15:54 116 H 35 H 118/69 100 09/01/17 15:39 114 H 33 H 118/73 100 09/01/17 15:24 109 H 36 H 122/78 100 09/01/17 15:06 110 H 35 H 121/78 100 Intake and Output (Last 8hrs): Intake & Output 09/01/17 09/01/17 09/01/17 06:59 14:59 22:59 Intake Total 653.3 689.8 135.0 Output Total 105 155 50 Balance 548.3 534.8 85.0 Intake: IV 70 130 Intake, IV Amount 583.3 559.8 135.0 Right Distal Port 6.6 Internal Jugular Right Forearm 38.3 6.6 Right Internal Jugular 145.0 17.5 Right Medial Port 400 400 100 Right Proximal Port 122.5 35.0 right forearm y port 6.6 Output: Urine 105 155 50 Urethral (Benjamin) 105 155 50 Other: # Bowel Movements 1 - Medications Active Medications: Active Medications Generic Name Dose Route Start Last Admin Trade Name Freq PRN Reason Stop Dose Admin Acetaminophen 650 mg 08/30/17 20:45 09/01/17 08:19 Tylenol 650mg/20.3ml Solution Ud PO 650 mg Q8 PRN Administration Fever >100.4 F Albuterol/Ipratropium 3 ml 08/29/17 08:00 Duoneb 3 Mg/0.5 Mg (3 Ml) Ud INH RQ4 RENAN Atovaquone 1,500 mg 08/27/17 13:30 08/31/17 09:58 Mepron PO 1,500 mg DAILY RENAN Administration Protocol Famotidine 20 mg 08/30/17 10:00 09/01/17 10:36 Pepcid IVP 20 mg DAILY RENAN Administration Hydrocortisone Sodium Succinate 50 mg 08/31/17 14:00 09/01/17 14:15 Solu-Cortef IV 50 mg Q8 RENAN Administration Propofol 1,000 mg in 100 mls @ 2.218 mls/hr 08/27/17 12:38 09/01/17 06:49 Diprivan IV 15 mcg/kg/min .Q24H PRN 6.654 mls/hr TITRATE PER MD ORDER Administration Protocol 5 MCG/KG/MIN Phenylephrine HCl 30 mg/ 253 mls @ 20.23 mls/hr 08/28/17 12:30 09/01/17 08:17 Dextrose IV 35 mcg/min .[id number] PRN 17.71 mls/hr TITRATE PER MD ORDER Administration Protocol 40 MCG/MIN Sodium Bicarbonate 75 meq/ 1,075 mls @ 50 mls/hr 08/31/17 10:00 09/01/17 10: 36 Sodium Chloride IV 50 mls/hr .[id number] RENAN Administration Azithromycin 250 mg/ Sodium 250 mls @ 250 mls/hr 09/01/17 17:00 Chloride IVPB Q24H RENAN Protocol Meropenem 500 mg/ Sodium 100 mls @ 100 mls/hr 09/01/17 06:00 09/01/17 14:03 Chloride IVPB 100 mls/hr Q8 RENAN Administration Protocol Micafungin Sodium 100 mg/ 100 mls @ 100 mls/hr 09/01/17 02:45 09/01/17 03:40 Sodium Chloride IV 100 mls/hr Q24H RENAN Administration Protocol Insulin Aspart 0 unit 08/27/17 18:00 09/01/17 17:33 Novolog SC Not Given Q6 [facility] Protocol Insulin Glargine 15 unit 08/30/17 10:00 09/01/17 10:36 Lantus SC 15 unit QAM RENAN Administration Lorazepam 1 mg 08/29/17 21:13 08/29/17 21:29 Ativan IVP 1 mg Q6H PRN Administration Anxiety Senna/Docusate Sodium 1 tab 08/28/17 10:00 08/31/17 09:58 Senokot S 50 Mg-8.6 Mg GT 1 tab DAILY RENAN Administration Vitamin B Complex/Vit C/Folic Acid 1 tab 09/01/17 08:00 Nephro-Chauncey PO 0800 RENAN - Patient Studies Lab Studies: Microbiology Studies 08/29/17 06:00 Gram Stain - Final Sputum Induced Sputum Culture - Final NORMAL ORAL ERIC Lab Studies 09/01/17 09/01/17 09/01/17 Range/Units 17:31 11:41 06:53 WBC (4.8-10.8) K/uL RBC (4.40-5.90) Mil/uL Hgb (12.0-18.0) g/dL Hct (35.0-51.0) % MCV (80.0-94.0) fL MCH (27.0-31.0) pg MCHC (33.0-37.0) g/dL RDW (11.5-14.5) % Plt Count (130-400) K/uL MPV (7.2-11.7) fL Neut % (Auto) (50.0-75.0) % Lymph % (Auto) (20.0-40.0) % [place] % (Auto) (0.0-10.0) % Eos % (Auto) (0.0-4.0) % Baso % (Auto) (0.0-2.0) % Neut # (Auto) (1.8-7.0) K/uL Lymph # (Auto) (1.0-4.3) K/uL [place] # (Auto) (0.0-0.8) K/uL Eos # (Auto) (0.0-0.7) K/uL Baso # (Auto) (0.0-0.2) K/uL Total Counted Neutrophils % (Manual) Band Neutrophils % Lymphocytes % (Manual) Reactive Lymphs % Monocytes % (Manual) Eosinophils % (Manual) Basophils % (Manual) Metamyelocytes % Myelocytes % Promyelocytes % Blast Cells % Plasma Cell % (Manual) Nucleated RBC % Hypersegmented Polys Smudge Cells Toxic Granulation Dohle Bodies Vonda Rods Platelet Estimate Plt Clumps, EDTA Large Platelets Giant Platelets RBC Morphology Polychromasia Hypochromasia (manual) Poikilocytosis (manual Basophilic Stippling Anisocytosis (manual) Microcytosis (manual) Macrocytosis (manual) Spherocytes Sickle Cells Target Cells Tear Drop Cells Ovalocytes Stomatocytes [place]met Cells [place] Bodies [place] Cells Acanthocytes (Spur) Rouleaux Schistocytes Puncture Site pCO2 (35-45) mm/Hg pO2 (80-100) mm/Hg HCO3 (21-28) mmol/L ABG pH (7.35-7.45) ABG Total CO2 (22-28) mmol/L ABG O2 Saturation (95-98) % ABG Base Excess (-2.0-3.0) mmol/L ABG Hemoglobin (11.7-17.4) g/dL ABG Carboxyhemoglobin (0.5-1.5) % POC ABG HHb (Measured) (0.0-5.0) % ABG Methemoglobin (0.0-3.0) % Harpreet Test A-a O2 Difference mm/Hg Respiratory Index Hgb O2 Saturation (95.0-98.0) % Vent Mode Mechanical Rate FiO2 % Tidal Volume PEEP Sodium (132-148) mmol/L Potassium (3.6-5.2) mmol/L Chloride (98-107) mmol/L Carbon Dioxide (22-30) mmol/L Anion Gap (10-20) BUN (9-20) mg/dL Creatinine (0.8-1.5) mg/dL Est GFR ( Amer) Est GFR (Non-Af Amer) POC Glucose (mg/dL) 127 H 141 H 125 H (65-110) mg/dL Random Glucose (75-110) mg/dL Calcium (8.6-10.4) mg/dl Phosphorus (2.5-4.5) mg/dL Magnesium (1.6-2.3) mg/dL Total Bilirubin (0.2-1.3) mg/dL AST (17-59) U/L ALT (21-72) U/L Alkaline Phosphatase (38-126) U/L Total Protein (6.3-8.3) g/dL Albumin (3.5-5.0) g/dL Globulin (2.2-3.9) gm/dL Albumin/Globulin Ratio (1.0-2.1) Random Vancomycin ug/mL HIV 1&2 Antibody Screen (NEGATIVE) 09/01/17 09/01/17 09/01/17 Range/Units 06:09 06:09 06:09 WBC (4.8-10.8) K/uL RBC (4.40-5.90) Mil/uL Hgb (12.0-18.0) g/dL Hct (35.0-51.0) % MCV (80.0-94.0) fL MCH (27.0-31.0) pg MCHC (33.0-37.0) g/dL RDW (11.5-14.5) % Plt Count (130-400) K/uL MPV (7.2-11.7) fL Neut % (Auto) (50.0-75.0) % Lymph % (Auto) (20.0-40.0) % [place] % (Auto) (0.0-10.0) % Eos % (Auto) (0.0-4.0) % Baso % (Auto) (0.0-2.0) % Neut # (Auto) (1.8-7.0) K/uL Lymph # (Auto) (1.0-4.3) K/uL [place] # (Auto) (0.0-0.8) K/uL Eos # (Auto) (0.0-0.7) K/uL Baso # (Auto) (0.0-0.2) K/uL Total Counted Neutrophils % (Manual) Band Neutrophils % Lymphocytes % (Manual) Reactive Lymphs % Monocytes % (Manual) Eosinophils % (Manual) Basophils % (Manual) Metamyelocytes % Myelocytes % Promyelocytes % Blast Cells % Plasma Cell % (Manual) Nucleated RBC % Hypersegmented Polys Smudge Cells Toxic Granulation Dohle Bodies Vonda Rods Platelet Estimate Plt Clumps, EDTA Large Platelets Giant Platelets RBC Morphology Polychromasia Hypochromasia (manual) Poikilocytosis (manual Basophilic Stippling Anisocytosis (manual) Microcytosis (manual) Macrocytosis (manual) Spherocytes Sickle Cells Target Cells Tear Drop Cells Ovalocytes Stomatocytes Helmet Cells [place] Bodies [place] Cells Acanthocytes (Spur) Rouleaux Schistocytes Puncture Site pCO2 (35-45) mm/Hg pO2 (80-100) mm/Hg HCO3 (21-28) mmol/L ABG pH (7.35-7.45) ABG Total CO2 (22-28) mmol/L ABG O2 Saturation (95-98) % ABG Base Excess (-2.0-3.0) mmol/L ABG Hemoglobin (11.7-17.4) g/dL ABG Carboxyhemoglobin (0.5-1.5) % POC ABG HHb (Measured) (0.0-5.0) % ABG Methemoglobin (0.0-3.0) % Harpreet Test A-a O2 Difference mm/Hg Respiratory Index Hgb O2 Saturation (95.0-98.0) % Vent Mode Mechanical Rate FiO2 % Tidal Volume PEEP Sodium 133 (132-148) mmol/L Potassium 4.5 (3.6-5.2) mmol/L Chloride 98 (98-107) mmol/L Carbon Dioxide 18 L (22-30) mmol/L Anion Gap 22 H (10-20) BUN 103 H* D (9-20) mg/dL Creatinine 3.9 H (0.8-1.5) mg/dL Est GFR ( Amer) 19 Est GFR (Non-Af Amer) 16 POC Glucose (mg/dL) (65-110) mg/dL Random Glucose 123 H (75-110) mg/dL Calcium 4.9 L* (8.6-10.4) mg/dl Phosphorus 5.1 H (2.5-4.5) mg/dL Magnesium 2.3 (1.6-2.3) mg/dL Total Bilirubin 7.9 H (0.2-1.3) mg/dL AST 61 H (17-59) U/L ALT 52 (21-72) U/L Alkaline Phosphatase 155 H (38-126) U/L Total Protein 5.3 L (6.3-8.3) g/dL Albumin 2.6 L (3.5-5.0) g/dL Globulin 2.7 (2.2-3.9) gm/dL Albumin/Globulin Ratio 1.0 (1.0-2.1) Random Vancomycin 10.1 ug/mL HIV 1&2 Antibody Screen Negative (NEGATIVE) 09/01/17 09/01/17 08/31/17 Range/Units 06:08 05:30 23:46 WBC 0.5 L* (4.8-10.8) K/uL RBC 3.23 L (4.40-5.90) Mil/uL Hgb 9.3 L (12.0-18.0) g/dL Hct 27.3 L (35.0-51.0) % MCV 84.5 (80.0-94.0) fL MCH 28.8 (27.0-31.0) pg MCHC 34.1 (33.0-37.0) g/dL RDW 17.8 H (11.5-14.5) % Plt Count 48 L D (130-400) K/uL MPV 7.8 (7.2-11.7) fL Neut % (Auto) 3.8 L (50.0-75.0) % Lymph % (Auto) 85.1 H (20.0-40.0) % [place] % (Auto) 11.1 H (0.0-10.0) % Eos % (Auto) 0.0 (0.0-4.0) % Baso % (Auto) 0.0 (0.0-2.0) % Neut # (Auto) 0.0 L (1.8-7.0) K/uL Lymph # (Auto) 0.4 L (1.0-4.3) K/uL [place] # (Auto) 0.1 (0.0-0.8) K/uL Eos # (Auto) 0.0 (0.0-0.7) K/uL Baso # (Auto) 0.0 (0.0-0.2) K/uL Total Counted Cancelled Neutrophils % (Manual) Cancelled Band Neutrophils % Cancelled Lymphocytes % (Manual) Cancelled Reactive Lymphs % Cancelled Monocytes % (Manual) Cancelled Eosinophils % (Manual) Cancelled Basophils % (Manual) Cancelled Metamyelocytes % Cancelled Myelocytes % Cancelled Promyelocytes % Cancelled Blast Cells % Cancelled Plasma Cell % (Manual) Cancelled Nucleated RBC % Cancelled Hypersegmented Polys Cancelled Smudge Cells Cancelled Toxic Granulation Cancelled Dohle Bodies Cancelled Vonda Rods Cancelled Platelet Estimate Cancelled Plt Clumps, EDTA Cancelled Large Platelets Cancelled Giant Platelets Cancelled RBC Morphology Cancelled Polychromasia Cancelled Hypochromasia (manual) Cancelled Poikilocytosis (manual Cancelled Basophilic Stippling Cancelled Anisocytosis (manual) Cancelled Microcytosis (manual) Cancelled Macrocytosis (manual) Cancelled Spherocytes Cancelled Sickle Cells Cancelled Target Cells Cancelled Tear Drop Cells Cancelled Ovalocytes Cancelled Stomatocytes Cancelled Helmet Cells Cancelled [place] Bodies Cancelled [place] Cells Cancelled Acanthocytes (Spur) Cancelled Rouleaux Cancelled Schistocytes Cancelled Puncture Site Lr pCO2 32 L (35-45) mm/Hg pO2 68 L (80-100) mm/Hg HCO3 18.6 L (21-28) mmol/L ABG pH 7.33 L (7.35-7.45) ABG Total CO2 17.9 L (22-28) mmol/L ABG O2 Saturation 95.3 (95-98) % ABG Base Excess -8.0 L (-2.0-3.0) mmol/L ABG Hemoglobin 12.8 (11.7-17.4) g/dL ABG Carboxyhemoglobin 1.4 (0.5-1.5) % POC ABG HHb (Measured) 4.6 (0.0-5.0) % ABG Methemoglobin 1.0 (0.0-3.0) % Harpreet Test Pos A-a O2 Difference 320.0 mm/Hg Respiratory Index 4.7 Hgb O2 Saturation 93.0 L (95.0-98.0) % Vent Mode Prvc Mechanical Rate 25 FiO2 60.0 % Tidal Volume 450 PEEP 6 Sodium (132-148) mmol/L Potassium (3.6-5.2) mmol/L Chloride (98-107) mmol/L Carbon Dioxide (22-30) mmol/L Anion Gap (10-20) BUN (9-20) mg/dL Creatinine (0.8-1.5) mg/dL Est GFR ( Amer) Est GFR (Non-Af Amer) POC Glucose (mg/dL) 123 H (65-110) mg/dL Random Glucose (75-110) mg/dL Calcium (8.6-10.4) mg/dl Phosphorus (2.5-4.5) mg/dL Magnesium (1.6-2.3) mg/dL Total Bilirubin (0.2-1.3) mg/dL AST (17-59) U/L ALT (21-72) U/L Alkaline Phosphatase (38-126) U/L Total Protein (6.3-8.3) g/dL Albumin (3.5-5.0) g/dL Globulin (2.2-3.9) gm/dL Albumin/Globulin Ratio (1.0-2.1) Random Vancomycin ug/mL HIV 1&2 Antibody Screen (NEGATIVE) Laboratory Results - last 24 hr 08/31/17 09/01/17 09/01/17 23:46 05:30 06:08 WBC 0.5 L* RBC 3.23 L Hgb 9.3 L Hct 27.3 L MCV 84.5 MCH 28.8 MCHC 34.1 RDW 17.8 H Plt Count 48 L D MPV 7.8 Neut % (Auto) 3.8 L Lymph % (Auto) 85.1 H [place] % (Auto) 11.1 H Eos % (Auto) 0.0 Baso % (Auto) 0.0 Neut # (Auto) 0.0 L Lymph # (Auto) 0.4 L [place] # (Auto) 0.1 Eos # (Auto) 0.0 Baso # (Auto) 0.0 Total Counted Cancelled Neutrophils % (Manual) Cancelled Band Neutrophils % Cancelled Lymphocytes % (Manual) Cancelled Reactive Lymphs % Cancelled Monocytes % (Manual) Cancelled Eosinophils % (Manual) Cancelled Basophils % (Manual) Cancelled Metamyelocytes % Cancelled Myelocytes % Cancelled Promyelocytes % Cancelled Blast Cells % Cancelled Plasma Cell % (Manual) Cancelled Nucleated RBC % Cancelled Hypersegmented Polys Cancelled Smudge Cells Cancelled Toxic Granulation Cancelled Dohle Bodies Cancelled Vonda Rods Cancelled Platelet Estimate Cancelled Plt Clumps, EDTA Cancelled Large Platelets Cancelled Giant Platelets Cancelled RBC Morphology Cancelled Polychromasia Cancelled Hypochromasia (manual) Cancelled Poikilocytosis (manual Cancelled Basophilic Stippling Cancelled Anisocytosis (manual) Cancelled Microcytosis (manual) Cancelled Macrocytosis (manual) Cancelled Spherocytes Cancelled Sickle Cells Cancelled Target Cells Cancelled Tear Drop Cells Cancelled Ovalocytes Cancelled Stomatocytes Cancelled Helmet Cells Cancelled [place] Bodies Cancelled [place] Cells Cancelled Acanthocytes (Spur) Cancelled Rouleaux Cancelled Schistocytes Cancelled Puncture Site Lr pCO2 32 L pO2 68 L HCO3 18.6 L ABG pH 7.33 L ABG Total CO2 17.9 L ABG O2 Saturation 95.3 ABG Base Excess -8.0 L ABG Hemoglobin 12.8 ABG Carboxyhemoglobin 1.4 POC ABG HHb (Measured) 4.6 ABG Methemoglobin 1.0 Harpreet Test Pos A-a O2 Difference 320.0 Respiratory Index 4.7 Hgb O2 Saturation 93.0 L Vent Mode Prvc Mechanical Rate 25 FiO2 60.0 Tidal Volume 450 PEEP 6 Sodium Potassium Chloride Carbon Dioxide Anion Gap BUN Creatinine Est GFR ( Amer) Est GFR (Non-Af Amer) POC Glucose (mg/dL) 123 H Random Glucose Calcium Phosphorus Magnesium Total Bilirubin AST ALT Alkaline Phosphatase Total Protein Albumin Globulin Albumin/Globulin Ratio Random Vancomycin HIV 1&2 Antibody Screen 09/01/17 09/01/17 09/01/17 06:09 06:09 06:09 WBC RBC Hgb Hct MCV MCH MCHC RDW Plt Count MPV Neut % (Auto) Lymph % (Auto) [place] % (Auto) Eos % (Auto) Baso % (Auto) Neut # (Auto) Lymph # (Auto) [place] # (Auto) Eos # (Auto) Baso # (Auto) Total Counted Neutrophils % (Manual) Band Neutrophils % Lymphocytes % (Manual) Reactive Lymphs % Monocytes % (Manual) Eosinophils % (Manual) Basophils % (Manual) Metamyelocytes % Myelocytes % Promyelocytes % Blast Cells % Plasma Cell % (Manual) Nucleated RBC % Hypersegmented Polys Smudge Cells Toxic Granulation Dohle Bodies Vonda Rods Platelet Estimate Plt Clumps, EDTA Large Platelets Giant Platelets RBC Morphology Polychromasia Hypochromasia (manual) Poikilocytosis (manual Basophilic Stippling Anisocytosis (manual) Microcytosis (manual) Macrocytosis (manual) Spherocytes Sickle Cells Target Cells Tear Drop Cells Ovalocytes Stomatocytes Helmet Cells [place] Bodies [place] Cells Acanthocytes (Spur) Rouleaux Schistocytes Puncture Site pCO2 pO2 HCO3 ABG pH ABG Total CO2 ABG O2 Saturation ABG Base Excess ABG Hemoglobin ABG Carboxyhemoglobin POC ABG HHb (Measured) ABG Methemoglobin Harpreet Test A-a O2 Difference Respiratory Index Hgb O2 Saturation Vent Mode Mechanical Rate FiO2 Tidal Volume PEEP Sodium 133 Potassium 4.5 Chloride 98 Carbon Dioxide 18 L Anion Gap 22 H BUN 103 H* D Creatinine 3.9 H Est GFR ( Amer) 19 Est GFR (Non-Af Amer) 16 POC Glucose (mg/dL) Random Glucose 123 H Calcium 4.9 L* Phosphorus 5.1 H Magnesium 2.3 Total Bilirubin 7.9 H AST 61 H ALT 52 Alkaline Phosphatase 155 H Total Protein 5.3 L Albumin 2.6 L Globulin 2.7 Albumin/Globulin Ratio 1.0 Random Vancomycin 10.1 HIV 1&2 Antibody Screen Negative 09/01/17 09/01/17 09/01/17 06:53 11:41 17:31 WBC RBC Hgb Hct MCV MCH MCHC RDW Plt Count MPV Neut % (Auto) Lymph % (Auto) [place] % (Auto) Eos % (Auto) Baso % (Auto) Neut # (Auto) Lymph # (Auto) [place] # (Auto) Eos # (Auto) Baso # (Auto) Total Counted Neutrophils % (Manual) Band Neutrophils % Lymphocytes % (Manual) Reactive Lymphs % Monocytes % (Manual) Eosinophils % (Manual) Basophils % (Manual) Metamyelocytes % Myelocytes % Promyelocytes % Blast Cells % Plasma Cell % (Manual) Nucleated RBC % Hypersegmented Polys Smudge Cells Toxic Granulation Dohle Bodies Vonda Rods Platelet Estimate Plt Clumps, EDTA Large Platelets Giant Platelets RBC Morphology Polychromasia Hypochromasia (manual) Poikilocytosis (manual Basophilic Stippling Anisocytosis (manual) Microcytosis (manual) Macrocytosis (manual) Spherocytes Sickle Cells Target Cells Tear Drop Cells Ovalocytes Stomatocytes Helmet Cells [place] Bodies [place] Cells Acanthocytes (Spur) Rouleaux Schistocytes Puncture Site pCO2 pO2 HCO3 ABG pH ABG Total CO2 ABG O2 Saturation ABG Base Excess ABG Hemoglobin ABG Carboxyhemoglobin POC ABG HHb (Measured) ABG Methemoglobin Harpreet Test A-a O2 Difference Respiratory Index Hgb O2 Saturation Vent Mode Mechanical Rate FiO2 Tidal Volume PEEP Sodium Potassium Chloride Carbon Dioxide Anion Gap BUN Creatinine Est GFR ( Amer) Est GFR (Non-Af Amer) POC Glucose (mg/dL) 125 H 141 H 127 H Random Glucose Calcium Phosphorus Magnesium Total Bilirubin AST ALT Alkaline Phosphatase Total Protein Albumin Globulin Albumin/Globulin Ratio Random Vancomycin HIV 1&2 Antibody Screen Attending/Attestation - Attestation I have personally seen and examined this patient.: Yes I have fully participated in the care of the patient.: Yes I have reviewed all pertinent clinical information: Yes Notes (Text): 09/01/17 18:19 patient seen and examined in the intensive care unit. Case discussed with house staff in the morning around Status post bronchoscopy for persistent left lung infiltrate/ clear secretions noted continue IV antibiotics Patient remains neutropenic Discussed with family at length Continue ventilatory support and reduce FiO2 as tolerated No weaning Feeding Continue present treatment for now
--- NOTE | 2017-09-01 10:31 | RAD ---
Date of service: 09/01/2017 HISTORY: PNA COMPARISON: 08/31/2017 chest x-ray FINDINGS: LUNGS: As before the left lung/left hemithorax is nearly completely opacified. Interval progressive opacification encroaching on the minimally residual aerated lung over the left costophrenic angle has also occurred. Left perihilar air bronchograms on this frontal view are noted as before. No rightward mediastinal shift suggested. Pleural base pathology with left lung all trace coalescent and/or coalescent pulmonary metastases are some considerations this patient with known sclerotic prostatic metastases. The nodules in the right lung are increased in conspicuity is well-preserved much smaller in size. PLEURA: No significant pleural effusion identified, no pneumothorax apparent. CARDIOVASCULAR: Not assessed given contiguous left lung pathology OSSEOUS STRUCTURES: Osseous S sclerotic bone mineralization compatible with history of sclerotic prostatic metastases VISUALIZED UPPER ABDOMEN: Normal. OTHER FINDINGS: Right internal jugular vein catheter tip superior vena cava -similar-appearing. Endotracheal tube approximately 2 cm superior to the marcial -similar-appearing. NG tube tip in stomach- similar-appearing IMPRESSION: Worsening opacification of the left lung. -as detailed above. Small right pulmonary nodules suspect as well. Support tubes and lines satisfactory positions.
[2017-09-01] MEDS: (Lantus) Insulin Glargine, Recombinant SC SCH (10:36)
[2017-09-01] MEDS ORDERED: Lidocaine 2% MPF (5 ml) Inj ONE (11:13)
[2017-09-01] MEDS ORDERED: EPINEPHrine 1 mg/ml (1:1000) Inj ONE (11:13)
[2017-09-01] MEDS ORDERED: Sodium Chloride 0.9% 0 ML IV ONE (11:13)
--- NOTE | 2017-09-01 11:42 | CP.PCM.PN ---
Subjective - Date & Time of Evaluation Date of Evaluation: 09/01/17 Time of Evaluation: 11:41 - Subjective Subjective: Nephrology Consultation Note: Assessment: critical oligoanuric Acute Kidney Injury (N17.9) likely ATN due to septic shock started HD 09/01/17 Neutropenic fever/pancytopenia with Left lung pneumonia with legionella s/p bronch 09/01/17 abnormal LFT with hyperbilirubinemia metastatic prostate CA on chemo/radiation acute respi failure s/p mechanical ventilation combined respi and metabolic acidosis Hypocalcemia, hyponatremia Plan HD today 1st session maintain hemodynamic stable. hold ACEI/ARB due to HUSSAIN Monitor Input/Output, daily weights and renal function with basic metabolic panel agree with Bicarb drip as ordered agree with IV calcium supplements pt on stress dose of steroids. also getting Granix ID, heme/onc following Dose meds/antibiotics for reduced GFR<10. Avoid fleets enema/magnesium based laxatives. Avoid nephrotoxins/NSAIDs/ iodinated contrast (unless needed emergently) Glycemic control Further work up/management as per primary team Thanks for allowing me to participate in care of your patient. Will follow patient with you. Please call if any Qs. had d/w team and family Dr Cristi Pandey Office: [phone] Chief Complaint; unable to obtain reason for consult: HUSSAIN HPI: Pt is a 61 M with hx of metastatic prostate CA on chemo/radiation therapy admitted with neutropenic fever and pneumonia complicated by septic shock requiring IV pressors and respi failure, intubated transferred to ICU. renal consult for HUSSAIN evaluation no knwon OTC/herbal meds or NSAIDs No known recent iodinated contrast exposure. Noted obvious episodes of low BP ( 81/48). ROS: unable to obtain Physical Examination: General Appearance: Comfortable, in no acute respiratory distress, ill appearing Vitals reviewed and noted as below Head; Atraumatic, normocephalic. ENT: orally intubated EYES: Pupils are equal, round and reactive to light accommodation. Sclera is icteric. Neck; supple no lymphadenopathy, no thyromegaly or bruit Lungs: Normal respiratory rate/effort. Breath sounds bilateral equal with basal crales Heart: Normal rate. s1s2 normal. No rub or gallop. Extremities: no edema. No varicose veins Neurological: Patient is sedated Skin: Warm and dry. Normal turgor. No rash. Palpitation: Normal elasticity for age Abdomen: Abdomen is soft. Bowel sounds +. There is no abdominal tenderness, no guarding/rigidity no organomegaly Psych: unable MSK: no joint tenderness or swelling. Digits and nails normal, no deformity : kidney or bladder not palpable. has montemayor catheter, no scrotal swelling access: rt femoral shiley Labs/imaging reviewed. Past medical history, past surgical history, family history, social history, allergy reviewed and noted as below Family hx: no hx of CKD. Rest non-contributory work up: renal sono: WNL UA no protein Objective - Vital Signs/Intake and Output Vital Signs (last 24 hours): Temp Pulse Resp BP Pulse Ox 98.9 F 103 H 28 H 119/68 93 L 09/01/17 09:19 09/01/17 07:00 09/01/17 07:00 09/01/17 08:17 09/01/17 07:00 Intake and Output: 09/01/17 09/01/17 06:59 18:59 Intake Total 2033.2 204.1 Output Total 190 10 Balance 1843.2 194.1 - Medications Medications: Current Medications Acetaminophen (Tylenol 650mg/20.3ml Solution Ud) 650 mg PO Q8 PRN PRN Reason: Fever >100.4 F Last Admin: 09/01/17 08:19 Dose: 650 mg Albuterol/Ipratropium (Duoneb 3 Mg/0.5 Mg (3 Ml) Ud) 3 ml INH RQ4 RENAN Atovaquone (Mepron) 1,500 mg PO DAILY RENAN PRN Reason: Protocol Last Admin: 08/31/17 09:58 Dose: 1,500 mg Famotidine (Pepcid) 20 mg IVP DAILY [facility] Last Admin: 09/01/17 10:36 Dose: 20 mg Hydrocortisone Sodium Succinate (Solu-Cortef) 50 mg IV Q8 RENAN Last Admin: 09/01/17 06:50 Dose: 50 mg Propofol (Diprivan) 1,000 mg in 100 mls @ 2.218 mls/hr IV .Q24H PRN; Protocol; 5 MCG/KG/MIN PRN Reason: TITRATE PER MD ORDER Last Admin: 09/01/17 06:49 Dose: 15 mcg/kg/min, 6.654 mls/hr Phenylephrine HCl 30 mg/ (Dextrose) 253 mls @ 20.23 mls/hr IV .[id number] PRN; Protocol; 40 MCG/MIN PRN Reason: TITRATE PER MD ORDER Last Admin: 09/01/17 08:17 Dose: 35 mcg/min, 17.71 mls/hr Sodium Bicarbonate 75 meq/ (Sodium Chloride) 1,075 mls @ 50 mls/hr IV .[id number] [facility] Last Admin: 09/01/17 10:36 Dose: 50 mls/hr Azithromycin 250 mg/ Sodium (Chloride) 250 mls @ 250 mls/hr IVPB Q24H RENAN PRN Reason: Protocol Meropenem 500 mg/ Sodium (Chloride) 100 mls @ 100 mls/hr IVPB Q8 RENAN PRN Reason: Protocol Last Admin: 09/01/17 06:50 Dose: 100 mls/hr Micafungin Sodium 100 mg/ (Sodium Chloride) 100 mls @ 100 mls/hr IV Q24H RENAN PRN Reason: Protocol Last Admin: 09/01/17 03:40 Dose: 100 mls/hr Calcium Gluconate 2,000 mg/ (Sodium Chloride) 270 mls @ 135 mls/hr IVPB ONCE ONE Stop: 09/01/17 12:59 Last Admin: 09/01/17 11:12 Dose: 135 mls/hr Insulin Aspart (Novolog) 0 unit SC Q6 RENAN PRN Reason: Protocol Last Admin: 09/01/17 06:56 Dose: Not Given Insulin Glargine (Lantus) 15 unit SC QAM [facility] Last Admin: 09/01/17 10:36 Dose: 15 unit Lorazepam (Ativan) 1 mg IVP Q6H PRN PRN Reason: Anxiety Last Admin: 08/29/17 21:29 Dose: 1 mg Senna/Docusate Sodium (Senokot S 50 Mg-8.6 Mg) 1 tab GT DAILY [facility] Last Admin: 08/31/17 09:58 Dose: 1 tab Vitamin B Complex/Vit C/Folic Acid (Nephro-Chauncey) 1 tab PO 0800 RENAN - Labs Labs: 09/01/17 06:08 09/01/17 06:09 PT 15.4 SECONDS (9.7-12.2) H 08/31/17 14:07 INR 1.4 08/31/17 14:07 APTT 36 SECONDS (21-34) H D 08/31/17 14:07
--- NOTE | 2017-09-01 12:01 | PCM.OP ---
Operative Report - Operative Report Date of Surgery/Procedure: 09/01/17 Time of Surgery/Procedure: 11:35 Surgeon: Dr. Escobar Anesthesia/Sedation: propofol continuous sedation Pre-Operative Diagnosis: Pneumonia Post-Operative Diagnosis: Pneumonia Indication for Surgery: hypoxemic respiratory failure Operative Findings: Limited secretions. Inflammation Procedure/Operation Description: bronchoscopy Estimated Blood Loss: 0 Complications: None Discharge & Condition: ICU, in stable condition. HR-101, spO2-95, BP-94/54, RR- 21
--- NOTE | 2017-09-01 12:04 | CP.PCM.PN ---
Subjective - Date & Time of Evaluation Date of Evaluation: 09/01/17 Time of Evaluation: 12:15 - Subjective Subjective: clinically same Objective - Vital Signs/Intake and Output Vital Signs (last 24 hours): Temp Pulse Resp BP Pulse Ox 98.9 F 103 H 28 H 119/68 93 L 09/01/17 09:19 09/01/17 07:00 09/01/17 07:00 09/01/17 08:17 09/01/17 07:00 Intake and Output: 09/01/17 09/01/17 06:59 18:59 Intake Total 2033.2 204.1 Output Total 190 10 Balance 1843.2 194.1 - Medications Medications: Current Medications Acetaminophen (Tylenol 650mg/20.3ml Solution Ud) 650 mg PO Q8 PRN PRN Reason: Fever >100.4 F Last Admin: 09/01/17 08:19 Dose: 650 mg Albuterol/Ipratropium (Duoneb 3 Mg/0.5 Mg (3 Ml) Ud) 3 ml INH RQ4 RENAN Atovaquone (Mepron) 1,500 mg PO DAILY RENAN PRN Reason: Protocol Last Admin: 08/31/17 09:58 Dose: 1,500 mg Famotidine (Pepcid) 20 mg IVP DAILY [facility] Last Admin: 09/01/17 10:36 Dose: 20 mg Hydrocortisone Sodium Succinate (Solu-Cortef) 50 mg IV Q8 [facility] Last Admin: 09/01/17 06:50 Dose: 50 mg Propofol (Diprivan) 1,000 mg in 100 mls @ 2.218 mls/hr IV .Q24H PRN; Protocol; 5 MCG/KG/MIN PRN Reason: TITRATE PER MD ORDER Last Admin: 09/01/17 06:49 Dose: 15 mcg/kg/min, 6.654 mls/hr Phenylephrine HCl 30 mg/ (Dextrose) 253 mls @ 20.23 mls/hr IV .[id number] PRN; Protocol; 40 MCG/MIN PRN Reason: TITRATE PER MD ORDER Last Admin: 09/01/17 08:17 Dose: 35 mcg/min, 17.71 mls/hr Sodium Bicarbonate 75 meq/ (Sodium Chloride) 1,075 mls @ 50 mls/hr IV .[id number] [facility] Last Admin: 09/01/17 10:36 Dose: 50 mls/hr Azithromycin 250 mg/ Sodium (Chloride) 250 mls @ 250 mls/hr IVPB Q24H RENAN PRN Reason: Protocol Meropenem 500 mg/ Sodium (Chloride) 100 mls @ 100 mls/hr IVPB Q8 RENAN PRN Reason: Protocol Last Admin: 09/01/17 06:50 Dose: 100 mls/hr Micafungin Sodium 100 mg/ (Sodium Chloride) 100 mls @ 100 mls/hr IV Q24H RENAN PRN Reason: Protocol Last Admin: 09/01/17 03:40 Dose: 100 mls/hr Calcium Gluconate 2,000 mg/ (Sodium Chloride) 270 mls @ 135 mls/hr IVPB ONCE ONE Stop: 09/01/17 12:59 Last Admin: 09/01/17 11:12 Dose: 135 mls/hr Insulin Aspart (Novolog) 0 unit SC Q6 RENAN PRN Reason: Protocol Last Admin: 09/01/17 06:56 Dose: Not Given Insulin Glargine (Lantus) 15 unit SC QAM [facility] Last Admin: 09/01/17 10:36 Dose: 15 unit Lorazepam (Ativan) 1 mg IVP Q6H PRN PRN Reason: Anxiety Last Admin: 08/29/17 21:29 Dose: 1 mg Senna/Docusate Sodium (Senokot S 50 Mg-8.6 Mg) 1 tab GT DAILY [facility] Last Admin: 08/31/17 09:58 Dose: 1 tab Vitamin B Complex/Vit C/Folic Acid (Nephro-Chauncey) 1 tab PO 0800 [facility] - Labs Labs: 09/01/17 06:08 09/01/17 06:09 PT 15.4 SECONDS (9.7-12.2) H 08/31/17 14:07 INR 1.4 08/31/17 14:07 APTT 36 SECONDS (21-34) H D 08/31/17 14:07 - Constitutional Appears: Well - Head Exam Head Exam: ATRAUMATIC, NORMAL INSPECTION, NORMOCEPHALIC - Eye Exam Eye Exam: EOMI, Normal appearance, PERRL Pupil Exam: NORMAL ACCOMODATION, PERRL - ENT Exam ENT Exam: Mucous Membranes Moist, Normal Exam - Neck Exam Neck Exam: Full ROM, Normal Inspection. absent: Lymphadenopathy - Respiratory Exam Respiratory Exam: Decreased Breath Sounds - Cardiovascular Exam Cardiovascular Exam: REGULAR RHYTHM, +S1, +S2 - GI/Abdominal Exam GI & Abdominal Exam: Soft, Diminished Bowel Sounds - Rectal Exam Rectal Exam: Deferred Assessment and Plan (1) Acute respiratory failure Status: Acute (2) Anemia Status: Acute (3) Chronic pain Status: Acute (4) Esophagitis Status: Acute (5) Gastritis Status: Acute (6) Pancytopenia Status: Acute (7) Abdominal pain Status: Acute (8) Chest discomfort Status: Acute (9) Constipation Status: Acute (10) Intractable abdominal pain Status: Acute (11) Metastatic malignant neoplasm to prostate Status: Acute (12) Neutropenia Status: Acute - Assessment and Plan (Free Text) Plan: Patient is comatose so discussed with the family IV meropenem IV azithromycin Legionella positive Patient is on feeding which was hold because of extra residuals Family member is always by the bed I spoke to the family Status post bronchoscopy today We will follow-up with the culture As ordered
--- NOTE | 2017-09-01 16:48 | CARD ---
APPROVED REPORT Date of service: 08/27/2017 EXAM: Two-dimensional and M-mode echocardiogram with Doppler and color Doppler. Other Information Quality : TDSRhythm : INDICATION Mitral Valve Disease Murmur MR 2D DIMENSIONS IVSd1.0 (0.7-1.1cm)LVDd4.4 (3.9-5.9cm) PWd1.0 (0.7-1.1cm)LVDs2.7 (2.5-4.0cm) FS (%) 37.7 %LVEF (%)68.1 (>50%) M-Mode DIMENSIONS Left Atrium (MM)2.53 (2.5-4.0cm)Aortic Root3.21 (2.2-3.7cm) Aortic Cusp Exc.2.21 (1.5-2.0cm) Mitral Valve MV E Axpaefag079.1cm/sE/A ratio0.0 TDI E/Lateral E'0.0E/Medial E'0.0 Tricuspid Valve TR Peak Ilmnmuvq084tz/sTR Peak Gr.[id number] <Conclusion> Very limited study Left ventricle: thickness: normal; size: normal; overall ejection fraction: 60%: diastolic filling pressures: indeterminate Mitral valve: annulus: normal: leaflets: normal: excursion: normal; no significant trans-mitral gradient: No significant incompetence: left atrium: normal Aortic valve: leaflets: normal: excursion: normal; no significant trans-aortic gradient: No significant incompetence: aortic root: normal Right sided chambers: normal; Pulmonary valve: normal; no significant incompetence; Tricuspid valve: normal; mild incompetence: Intra-cardiac hemodynamics: pulmonary systolic pressures: 36mmHg; central venous pressures: normal No pericardial effusion
[2017-09-01] MEDS: Docusate-Senna 50 mg-8.6 mg Tab GT SCH (18:17)
[2017-09-01] MEDS: Atovaquone 750 mg/5 ml Susp UD PO SCH (18:21)
[2017-09-01] MEDS: Azithromycin 250 MG in Sodium Chloride 0.9% 250 ML IVPB SCH (18:21)
[2017-09-01] MEDS: Multivitamin Vitamin B Complex (Nephro-Vite) Tab PO SCH (18:21)
--- NOTE | 2017-09-01 22:13 | CP.PCM.PN ---
Subjective - Date & Time of Evaluation Date of Evaluation: 09/01/17 Time of Evaluation: 22:13 - Subjective Subjective: TMAX 102.7, HYPOTENSIVE ON VASOPRESSORS PATIENT ON VENTILATOR. S/P RIGHT FEMORAL HEMODIALYSIS CATHETER PLACEMENT TODAY 09/01/17. SEEN ON HEMODIALYSIS TODAY S/P FOB NOTED PULMONARY FINDINGS NOTED. PATIENT REMAINS NEUTROPENIC. CXR 09/01/17- REVIEWED Worsening opacification left lung. Small right pulmonary nodules suspected as well ? Pulmonary metastasis are some consideration in view of metastatic prostatic CA. case discussed with pulmonary/ critical care DR GAMING. Objective - Vital Signs/Intake and Output Vital Signs (last 24 hours): Temp Pulse Resp BP Pulse Ox 98.7 F 112 H 31 H 109/69 100 09/01/17 20:00 09/01/17 21:01 09/01/17 21:01 09/01/17 21:01 09/01/17 21:01 Intake and Output: 09/01/17 09/02/17 18:59 06:59 Intake Total 1224.8 275.7 Output Total 935 20 Balance 289.8 255.7 - Medications Medications: Current Medications Acetaminophen (Tylenol 650mg/20.3ml Solution Ud) 650 mg PO Q8 PRN PRN Reason: Fever >100.4 F Last Admin: 09/01/17 08:19 Dose: 650 mg Albuterol/Ipratropium (Duoneb 3 Mg/0.5 Mg (3 Ml) Ud) 3 ml INH RQ4 RENAN Atovaquone (Mepron) 1,500 mg PO DAILY RENAN PRN Reason: Protocol Last Admin: 09/01/17 18:21 Dose: 1,500 mg Famotidine (Pepcid) 20 mg IVP DAILY [facility] Last Admin: 09/01/17 10:36 Dose: 20 mg Hydrocortisone Sodium Succinate (Solu-Cortef) 50 mg IV Q8 [facility] Last Admin: 09/01/17 14:15 Dose: 50 mg Propofol (Diprivan) 1,000 mg in 100 mls @ 2.218 mls/hr IV .Q24H PRN; Protocol; 5 MCG/KG/MIN PRN Reason: TITRATE PER MD ORDER Last Admin: 09/01/17 06:49 Dose: 15 mcg/kg/min, 6.654 mls/hr Phenylephrine HCl 30 mg/ (Dextrose) 253 mls @ 20.23 mls/hr IV .[id number] PRN; Protocol; 40 MCG/MIN PRN Reason: TITRATE PER MD ORDER Last Admin: 09/01/17 08:17 Dose: 35 mcg/min, 17.71 mls/hr Sodium Bicarbonate 75 meq/ (Sodium Chloride) 1,075 mls @ 50 mls/hr IV .[id number] RENAN Last Admin: 09/01/17 10:36 Dose: 50 mls/hr Azithromycin 250 mg/ Sodium (Chloride) 250 mls @ 250 mls/hr IVPB Q24H RENAN PRN Reason: Protocol Last Admin: 09/01/17 18:21 Dose: 250 mls/hr Meropenem 500 mg/ Sodium (Chloride) 100 mls @ 100 mls/hr IVPB Q8 RENAN PRN Reason: Protocol Last Admin: 09/01/17 14:03 Dose: 100 mls/hr Micafungin Sodium 100 mg/ (Sodium Chloride) 100 mls @ 100 mls/hr IV Q24H RENAN PRN Reason: Protocol Last Admin: 09/01/17 03:40 Dose: 100 mls/hr Insulin Aspart (Novolog) 0 unit SC Q6 RENAN PRN Reason: Protocol Last Admin: 09/01/17 17:33 Dose: Not Given Insulin Glargine (Lantus) 15 unit SC QAM RENAN Last Admin: 09/01/17 10:36 Dose: 15 unit Lorazepam (Ativan) 1 mg IVP Q6H PRN PRN Reason: Anxiety Last Admin: 08/29/17 21:29 Dose: 1 mg Senna/Docusate Sodium (Senokot S 50 Mg-8.6 Mg) 1 tab GT DAILY [facility] Last Admin: 09/01/17 18:17 Dose: Not Given Vitamin B Complex/Vit C/Folic Acid (Nephro-Chauncey) 1 tab PO 0800 RENAN Last Admin: 09/01/17 18:21 Dose: 1 tab - Labs Labs: 09/01/17 06:08 09/01/17 06:09 PT 15.4 SECONDS (9.7-12.2) H 08/31/17 14:07 INR 1.4 08/31/17 14:07 APTT 36 SECONDS (21-34) H D 08/31/17 14:07 - Constitutional Appears: No Acute Distress, Chronically Ill - Head Exam Head Exam: NORMAL INSPECTION - Eye Exam Eye Exam: PERRL - Neck Exam Neck Exam: Normal Inspection - Respiratory Exam Respiratory Exam: Decreased Breath Sounds, Rhonchi (LEFT SIDE) - Cardiovascular Exam Cardiovascular Exam: Tachycardia, REGULAR RHYTHM, +S1, +S2 - Extremities Exam Extremities Exam: Normal Capillary Refill, Pedal Edema. absent: Calf Tenderness - Neurological Exam Neurological Exam: Altered (PATIENT ON PROPOFOL) - Skin Skin Exam: Normal Color, Warm Assessment and Plan (1) Pancytopenia Status: Acute (2) Abdominal pain Status: Acute (3) Esophagitis Status: Acute (4) Metastatic malignant neoplasm to prostate Status: Acute - Assessment and Plan (Free Text) Assessment: ASSESSMENT NEUTROPENIC FEVERS /MULTIORGAN FAILURE PNEUMONIA - LEGIONELLA ANTIGEN POSITIVE ( ? LEGIONELLA PNEUMOPHILLA ) S/P FOB TODAY 09/01/17 METASTATIC CA PROSTRATE. HX OF ESOPHAGITIS VI S/P EGD ABDOMINAL PAIN- ABNORMAL LIVER FUNCTION TESTS-SHOCK LIVER VS CHOLESTASIS VS LEGIONELLOSIS HUSSAIN SEC SHOCK PLAN : ON MULTIPLE ANTIBIOTICS BLOOD CULTURES x2 SETS XFUNGUS P VANCOMYCIN ON HOLD. .ON iv MERREM 500 MG IV Q 8HRLY. 08/26/17 .ON IV AZITHROMICIN 250MG IV PB [id number] MONITOR QT -PROLONGATION. ON IV MYCAFUNGIN 100MG IV [id number] 08/31/17. CONTINUE ATOVAQUONE 1500 MG OD DAILY. 08/27/17 (NO DOSAGE ADJUSTMENT IN RENALFAILURE ) PATIENT NOT A CANDIDATE FOR PENTAMADINE IN VIEW OF HYPOTENSION,RENAL FAILURE AND NEUROTOXICITY. CHECK GLUCOSE 6 PHOSPHATE LEVELS. ON IV STEROIDS ORDERED BY INTENSIVISTS.50 MG EVERY 8 HOURLY 08/31/17 NEUTROPENIC PRECAUTIONS. PULMONARY TOILET. F/U [employer],FUNGUS.PCP, VIRAL SENT BY PULMONARY/[employer].TODAYON FOB. F/U [facility] FOR LEGINELLA CULTURE. (SENT 08/27/[address] Luciano CARLTON ) F/U [facility] AND [facility]ON[facility] TO ADJUST ABX/ANTIFUNGALS PROGNOSIS GRAVE.
[2017-09-02] MEDS: Micafungin 100 MG in Sodium Chloride 0.9% 100 ML IV SCH (03:15)
[2017-09-02 04:32] LABS: ABG ALLEN TEST POS; ARTERIAL BLOOD GAS HCO3 20.9 mmol/L (21-28); ARTERIAL BLOOD GAS HEMOGLOBIN 15.1 g/dL (11.7-17.4); ARTERIAL BLOOD GAS O2 SAT 96.9 % (95-98); ARTERIAL BLOOD GAS PCO2 36 mm/Hg (35-45); ARTERIAL BLOOD GAS PH 7.35 (7.35-7.45); ARTERIAL BLOOD GAS PO2 78 mm/Hg (80-100)
[2017-09-02] MEDS: Propofol 10 mg/ml 1,000 MG/100 ML VIAL IV PRN (05:00)
[2017-09-02] MEDS: Meropenem 500 MG in Sodium Chloride 0.9% 100 ML IVPB SCH ×3 (05:00→21:54)
[2017-09-02] MEDS: (Novolog) Insulin Aspart, Recombinant 100 u/ml 10 ml vial SC SCH ×5 (06:00→23:53)
[2017-09-02 06:31] LABS: EOS % 0.4 % (0.0-4.0); HEMOGLOBIN 10.4 g/dL (12.0-18.0); LYMPH # 0.3 K/uL (1.0-4.3); LYMPH % 54.6 % (20.0-40.0); MEAN CELL VOLUME 83.9 fL (80.0-94.0); MEAN CORPUSCULAR HGB CONC 34.6 g/dL (33.0-37.0); MEAN PLATELET VOLUME 8.9 fL (7.2-11.7); MONO # 0.1 K/uL (0.0-0.8); MONO % 21.6 % (0.0-10.0); NEUT # 0.1 K/uL (1.8-7.0); NEUT % 23.4 % (50.0-75.0); NRBC % 4.6 % (0.0-2.0); RBC 3.58 Mil/uL (4.40-5.90); RED CELL DISTRIBUTION WIDTH 18.1 % (11.5-14.5)
[2017-09-02 06:35] LABS: PLATELET COUNT 20 K/uL (130-400); WHITE BLOOD COUNT 0.5 K/uL (4.8-10.8)
[2017-09-02 06:58] LABS: ALB/GLOB RATIO 0.9 (1.0-2.1); ALBUMIN 2.4 g/dL (3.5-5.0); CALCIUM 4.9 mg/dl (8.6-10.4)
[2017-09-02 08:51] LABS: BANDS 4 % (0-2); METAMYELOCYTE 2 % (0-0); MONOCYTE 22 % (0-10); NUCLEATED RED BLOOD CELL 1 % (0-0); REACTIVE LYMPHOCYTES 2 % (0-0); TOTAL CELLS COUNTED 50
[2017-09-02 08:52] LABS: ANISOCYTOSIS SLIGHT; LYMPHOCYTE 40 % (20-40); NEUTROPHIL 30 % (50-75); PLATELET ESTIMATE MARKEDLY DECREASED (NORMAL); POIKILOCYTOSIS SLIGHT
[2017-09-02 08:53] LABS: HYPOCHROMIC SLIGHT; TARGET CELLS SLIGHT
--- NOTE | 2017-09-02 09:11 | CP.CCUPN ---
<Yuko Hsieh - Last Filed: 09/02/17 14:30> CCU Subjective - Physician Review Subjective (Free Text): 61 yo male with PMHx of metastatic prostate cancer to bones presented with abdominal pain. He was admitted to the ICU in hypoxic respiratory failure 2/2 left sided PNA, requiring intubation. Pt seen and examined at bedside this morning. Unable to obtain ROS. Febrile overnight 100.3. Platelets 20. Urine o/p~16.5/hr. 09/02/17 10:37 CCU Objective - Vital Signs / Intake & Output Vital Signs (Last 4 hours): Vital Signs Pulse Resp BP Pulse Ox 09/02/17 07:01 114/76 09/02/17 07:00 108 H 31 H 97 09/02/17 06:00 106 H 31 H 91/70 L 98 Intake and Output (Last 8hrs): Intake & Output 09/01/17 09/02/17 09/02/17 22:59 06:59 14:59 Intake Total 1252.8 1033.3 89.1 Output Total 825 115 Balance 427.8 918.3 89.1 Weight 73 lb 4.8 oz 177 lb 7.554 oz Intake: IV 253 148 Intake, IV Amount 909.8 760.3 69.1 Right Distal Port 19.8 52.8 6.6 Internal Jugular Right Medial Port 400 400 50 Right Proximal Port 140.0 107.5 12.5 Right Wrist 350 200 Oral 30 Tube Feeding 60 125 20 Output: Urine 125 115 Urethral (Benjamin) 125 115 Other 700 Other: # Bowel Movements 1 - Physical Exam Head: Positive for: Atraumatic, Normocephalic Pupils: Positive for: Sluggish Mouth: Positive for: Moist Mucous Membranes Respiratory/Chest: Positive for: Decreased Breath Sounds (L>R) Cardiovascular: Positive for: Regular Rate and Rhythm. Negative for: Murmurs Abdomen: Positive for: Distention, Normal Bowel Sounds Upper Extremity: Positive for: Normal Inspection, Edema (edema developing). Negative for: Cyanosis Lower Extremity: Positive for: Normal Inspection, Edema (edema developing) Neurological: Negative for: GCS=15 Skin: Positive for: Normal Color, Hot Psychiatric: Negative for: Alert - Medications Active Medications: Active Medications Generic Name Dose Route Start Last Admin Trade Name Freq PRN Reason Stop Dose Admin Acetaminophen 650 mg 08/30/17 20:45 09/01/17 08:19 Tylenol 650mg/20.3ml Solution Ud PO 650 mg Q8 PRN Administration Fever >100.4 F Albuterol/Ipratropium 3 ml 08/29/17 08:00 Duoneb 3 Mg/0.5 Mg (3 Ml) Ud INH RQ4 RENAN Atovaquone 1,500 mg 08/27/17 13:30 09/01/17 18:21 Mepron PO 1,500 mg DAILY RENAN Administration Protocol Famotidine 20 mg 08/30/17 10:00 09/01/17 10:36 Pepcid IVP 20 mg DAILY RENAN Administration Hydrocortisone Sodium Succinate 50 mg 08/31/17 14:00 09/02/17 05:00 Solu-Cortef IV 50 mg Q8 RENAN Administration Propofol 1,000 mg in 100 mls @ 2.218 mls/hr 08/27/17 12:38 09/02/17 05:00 Diprivan IV 15 mcg/kg/min .Q24H PRN 6.654 mls/hr TITRATE PER MD ORDER Administration Protocol 5 MCG/KG/MIN Phenylephrine HCl 30 mg/ 253 mls @ 20.23 mls/hr 08/28/17 12:30 09/02/17 01:50 Dextrose IV 25 mcg/min .[id number] PRN 12.64 mls/hr TITRATE PER MD ORDER Titration Protocol 40 MCG/MIN Sodium Bicarbonate 75 meq/ 1,075 mls @ 50 mls/hr 08/31/17 10:00 09/02/17 05: 00 Sodium Chloride IV 50 mls/hr .[id number] RENAN Administration Azithromycin 250 mg/ Sodium 250 mls @ 250 mls/hr 09/01/17 17:00 09/01/17 18: 21 Chloride IVPB 250 mls/hr Q24H RENAN Administration Protocol Meropenem 500 mg/ Sodium 100 mls @ 100 mls/hr 09/01/17 06:00 09/02/17 05:00 Chloride IVPB 100 mls/hr Q8 RENAN Administration Protocol Micafungin Sodium 100 mg/ 100 mls @ 100 mls/hr 09/01/17 02:45 09/02/17 03:15 Sodium Chloride IV 100 mls/hr Q24H RENAN Administration Protocol Calcium Gluconate 2,000 mg/ 270 mls @ 135 mls/hr 09/02/17 08:00 Sodium Chloride IVPB 09/02/17 09:59 ONCE ONE Insulin Aspart 0 unit 08/27/17 18:00 09/02/17 06:00 Novolog SC Not Given Q6 [facility] Protocol Insulin Glargine 15 unit 08/30/17 10:00 09/01/17 10:36 Lantus SC 15 unit QAM RENAN Administration Lorazepam 1 mg 08/29/17 21:13 08/29/17 21:29 Ativan IVP 1 mg Q6H PRN Administration Anxiety Senna/Docusate Sodium 1 tab 08/28/17 10:00 09/01/17 18:17 Senokot S 50 Mg-8.6 Mg GT Not Given DAILY [facility] Vitamin B Complex/Vit C/Folic Acid 1 tab 09/01/17 08:00 09/01/17 18:21 Nephro-Chauncey PO 1 tab 0800 RENAN Administration - Patient Studies Lab Studies: Microbiology Studies 09/01/17 06:15 Blood Culture - Preliminary Blood-Thru Central Line NO GROWTH AFTER 24 HOURS 09/01/17 06:15 Blood Culture - Preliminary Blood-Thru Central Line NO GROWTH AFTER 24 HOURS 08/29/17 06:00 Gram Stain - Final Sputum Induced Sputum Culture - Final NORMAL ORAL ERIC Lab Studies 09/02/17 09/02/17 09/02/17 Range/Units 06:24 06:24 05:26 WBC 0.5 L* (4.8-10.8) K/uL RBC 3.58 L (4.40-5.90) Mil/uL Hgb 10.4 L (12.0-18.0) g/dL Hct 30.0 L (35.0-51.0) % MCV 83.9 (80.0-94.0) fL MCH 29.0 (27.0-31.0) pg MCHC 34.6 (33.0-37.0) g/dL RDW 18.1 H (11.5-14.5) % Plt Count 20 L* D (130-400) K/uL MPV 8.9 (7.2-11.7) fL Neut % (Auto) 23.4 L (50.0-75.0) % Lymph % (Auto) 54.6 H (20.0-40.0) % [place] % (Auto) 21.6 H (0.0-10.0) % Eos % (Auto) 0.4 (0.0-4.0) % Baso % (Auto) 0.0 (0.0-2.0) % Neut # (Auto) 0.1 L (1.8-7.0) K/uL Lymph # (Auto) 0.3 L (1.0-4.3) K/uL [place] # (Auto) 0.1 (0.0-0.8) K/uL Eos # (Auto) 0.0 (0.0-0.7) K/uL Baso # (Auto) 0.0 (0.0-0.2) K/uL Neutrophils % (Manual) 30 L (50-75) % Band Neutrophils % 4 H (0-2) % Lymphocytes % (Manual) 40 (20-40) % Reactive Lymphs % 2 H (0-0) % Monocytes % (Manual) 22 H (0-10) % Metamyelocytes % 2 H (0-0) % Nucleated RBC % 1 H (0-0) % Platelet Estimate Markedly decreased L (NORMAL) Hypochromasia (manual) Slight Poikilocytosis (manual Slight Anisocytosis (manual) Slight Target Cells Slight Puncture Site pCO2 (35-45) mm/Hg pO2 (80-100) mm/Hg HCO3 (21-28) mmol/L ABG pH (7.35-7.45) ABG Total CO2 (22-28) mmol/L ABG O2 Saturation (95-98) % ABG Base Excess (-2.0-3.0) mmol/L ABG Hemoglobin (11.7-17.4) g/dL ABG Carboxyhemoglobin (0.5-1.5) % POC ABG HHb (Measured) (0.0-5.0) % ABG Methemoglobin (0.0-3.0) % Harpreet Test A-a O2 Difference mm/Hg Respiratory Index Hgb O2 Saturation (95.0-98.0) % Vent Mode Mechanical Rate FiO2 % Tidal Volume PEEP Sodium 134 (132-148) mmol/L Potassium 4.2 (3.6-5.2) mmol/L Chloride 98 (98-107) mmol/L Carbon Dioxide 22 (22-30) mmol/L Anion Gap 18 (10-20) BUN 94 H (9-20) mg/dL Creatinine 3.3 H (0.8-1.5) mg/dL Est GFR ( Amer) 23 Est GFR (Non-Af Amer) 19 POC Glucose (mg/dL) 119 H (65-110) mg/dL Random Glucose 123 H (75-110) mg/dL Calcium 4.9 L* (8.6-10.4) mg/dl Phosphorus 5.6 H (2.5-4.5) mg/dL Magnesium 2.2 (1.6-2.3) mg/dL Total Bilirubin 7.2 H (0.2-1.3) mg/dL AST 56 (17-59) U/L ALT 48 (21-72) U/L Alkaline Phosphatase 159 H (38-126) U/L Lactate Dehydrogenase 2293 H (313-618) U/L Total Protein 5.1 L (6.3-8.3) g/dL Albumin 2.4 L (3.5-5.0) g/dL Globulin 2.7 (2.2-3.9) gm/dL Albumin/Globulin Ratio 0.9 L (1.0-2.1) 09/02/17 09/01/17 09/01/17 Range/Units 04:25 23:46 17:31 WBC (4.8-10.8) K/uL RBC (4.40-5.90) Mil/uL Hgb (12.0-18.0) g/dL Hct (35.0-51.0) % MCV (80.0-94.0) fL MCH (27.0-31.0) pg MCHC (33.0-37.0) g/dL RDW (11.5-14.5) % Plt Count (130-400) K/uL MPV (7.2-11.7) fL Neut % (Auto) (50.0-75.0) % Lymph % (Auto) (20.0-40.0) % [place] % (Auto) (0.0-10.0) % Eos % (Auto) (0.0-4.0) % Baso % (Auto) (0.0-2.0) % Neut # (Auto) (1.8-7.0) K/uL Lymph # (Auto) (1.0-4.3) K/uL [place] # (Auto) (0.0-0.8) K/uL Eos # (Auto) (0.0-0.7) K/uL Baso # (Auto) (0.0-0.2) K/uL Neutrophils % (Manual) (50-75) % Band Neutrophils % (0-2) % Lymphocytes % (Manual) (20-40) % Reactive Lymphs % (0-0) % Monocytes % (Manual) (0-10) % Metamyelocytes % (0-0) % Nucleated RBC % (0-0) % Platelet Estimate (NORMAL) Hypochromasia (manual) Poikilocytosis (manual Anisocytosis (manual) Target Cells Puncture Site Rr pCO2 36 (35-45) mm/Hg pO2 78 L (80-100) mm/Hg HCO3 20.9 L (21-28) mmol/L ABG pH 7.35 (7.35-7.45) ABG Total CO2 21.0 L (22-28) mmol/L ABG O2 Saturation 96.9 (95-98) % ABG Base Excess -5.0 L (-2.0-3.0) mmol/L ABG Hemoglobin 15.1 (11.7-17.4) g/dL ABG Carboxyhemoglobin 1.4 (0.5-1.5) % POC ABG HHb (Measured) 3.0 (0.0-5.0) % ABG Methemoglobin 0.9 (0.0-3.0) % Harpreet Test Pos A-a O2 Difference 305.0 mm/Hg Respiratory Index 3.9 Hgb O2 Saturation 94.8 L (95.0-98.0) % Vent Mode Prvc Mechanical Rate 25 FiO2 60.0 % Tidal Volume 450 PEEP 6 Sodium (132-148) mmol/L Potassium (3.6-5.2) mmol/L Chloride (98-107) mmol/L Carbon Dioxide (22-30) mmol/L Anion Gap (10-20) BUN (9-20) mg/dL Creatinine (0.8-1.5) mg/dL Est GFR ( Amer) Est GFR (Non-Af Amer) POC Glucose (mg/dL) 123 H 127 H (65-110) mg/dL Random Glucose (75-110) mg/dL Calcium (8.6-10.4) mg/dl Phosphorus (2.5-4.5) mg/dL Magnesium (1.6-2.3) mg/dL Total Bilirubin (0.2-1.3) mg/dL AST (17-59) U/L ALT (21-72) U/L Alkaline Phosphatase (38-126) U/L Lactate Dehydrogenase (313-618) U/L Total Protein (6.3-8.3) g/dL Albumin (3.5-5.0) g/dL Globulin (2.2-3.9) gm/dL Albumin/Globulin Ratio (1.0-2.1) 09/01/17 Range/Units 11:41 WBC (4.8-10.8) K/uL RBC (4.40-5.90) Mil/uL Hgb (12.0-18.0) g/dL Hct (35.0-51.0) % MCV (80.0-94.0) fL MCH (27.0-31.0) pg MCHC (33.0-37.0) g/dL RDW (11.5-14.5) % Plt Count (130-400) K/uL MPV (7.2-11.7) fL Neut % (Auto) (50.0-75.0) % Lymph % (Auto) (20.0-40.0) % [place] % (Auto) (0.0-10.0) % Eos % (Auto) (0.0-4.0) % Baso % (Auto) (0.0-2.0) % Neut # (Auto) (1.8-7.0) K/uL Lymph # (Auto) (1.0-4.3) K/uL [place] # (Auto) (0.0-0.8) K/uL Eos # (Auto) (0.0-0.7) K/uL Baso # (Auto) (0.0-0.2) K/uL Neutrophils % (Manual) (50-75) % Band Neutrophils % (0-2) % Lymphocytes % (Manual) (20-40) % Reactive Lymphs % (0-0) % Monocytes % (Manual) (0-10) % Metamyelocytes % (0-0) % Nucleated RBC % (0-0) % Platelet Estimate (NORMAL) Hypochromasia (manual) Poikilocytosis (manual Anisocytosis (manual) Target Cells Puncture Site pCO2 (35-45) mm/Hg pO2 (80-100) mm/Hg HCO3 (21-28) mmol/L ABG pH (7.35-7.45) ABG Total CO2 (22-28) mmol/L ABG O2 Saturation (95-98) % ABG Base Excess (-2.0-3.0) mmol/L ABG Hemoglobin (11.7-17.4) g/dL ABG Carboxyhemoglobin (0.5-1.5) % POC ABG HHb (Measured) (0.0-5.0) % ABG Methemoglobin (0.0-3.0) % Harpreet Test A-a O2 Difference mm/Hg Respiratory Index Hgb O2 Saturation (95.0-98.0) % Vent Mode Mechanical Rate FiO2 % Tidal Volume PEEP Sodium (132-148) mmol/L Potassium (3.6-5.2) mmol/L Chloride (98-107) mmol/L Carbon Dioxide (22-30) mmol/L Anion Gap (10-20) BUN (9-20) mg/dL Creatinine (0.8-1.5) mg/dL Est GFR ( Amer) Est GFR (Non-Af Amer) POC Glucose (mg/dL) 141 H (65-110) mg/dL Random Glucose (75-110) mg/dL Calcium (8.6-10.4) mg/dl Phosphorus (2.5-4.5) mg/dL Magnesium (1.6-2.3) mg/dL Total Bilirubin (0.2-1.3) mg/dL AST (17-59) U/L ALT (21-72) U/L Alkaline Phosphatase (38-126) U/L Lactate Dehydrogenase (313-618) U/L Total Protein (6.3-8.3) g/dL Albumin (3.5-5.0) g/dL Globulin (2.2-3.9) gm/dL Albumin/Globulin Ratio (1.0-2.1) Laboratory Results - last 24 hr 09/01/17 09/01/17 09/01/17 11:41 17:31 23:46 WBC RBC Hgb Hct MCV MCH MCHC RDW Plt Count MPV Neut % (Auto) Lymph % (Auto) [place] % (Auto) Eos % (Auto) Baso % (Auto) Neut # (Auto) Lymph # (Auto) [place] # (Auto) Eos # (Auto) Baso # (Auto) Neutrophils % (Manual) Band Neutrophils % Lymphocytes % (Manual) Reactive Lymphs % Monocytes % (Manual) Metamyelocytes % Nucleated RBC % Platelet Estimate Hypochromasia (manual) Poikilocytosis (manual Anisocytosis (manual) Target Cells Puncture Site pCO2 pO2 HCO3 ABG pH ABG Total CO2 ABG O2 Saturation ABG Base Excess ABG Hemoglobin ABG Carboxyhemoglobin POC ABG HHb (Measured) ABG Methemoglobin Harpreet Test A-a O2 Difference Respiratory Index Hgb O2 Saturation Vent Mode Mechanical Rate FiO2 Tidal Volume PEEP Sodium Potassium Chloride Carbon Dioxide Anion Gap BUN Creatinine Est GFR ( Amer) Est GFR (Non-Af Amer) POC Glucose (mg/dL) 141 H 127 H 123 H Random Glucose Calcium Phosphorus Magnesium Total Bilirubin AST ALT Alkaline Phosphatase Lactate Dehydrogenase Total Protein Albumin Globulin Albumin/Globulin Ratio 09/02/17 09/02/17 09/02/17 04:25 05:26 06:24 WBC 0.5 L* RBC 3.58 L Hgb 10.4 L Hct 30.0 L MCV 83.9 MCH 29.0 MCHC 34.6 RDW 18.1 H Plt Count 20 L* D MPV 8.9 Neut % (Auto) 23.4 L Lymph % (Auto) 54.6 H [place] % (Auto) 21.6 H Eos % (Auto) 0.4 Baso % (Auto) 0.0 Neut # (Auto) 0.1 L Lymph # (Auto) 0.3 L [place] # (Auto) 0.1 Eos # (Auto) 0.0 Baso # (Auto) 0.0 Neutrophils % (Manual) 30 L Band Neutrophils % 4 H Lymphocytes % (Manual) 40 Reactive Lymphs % 2 H Monocytes % (Manual) 22 H Metamyelocytes % 2 H Nucleated RBC % 1 H Platelet Estimate Markedly decreased L Hypochromasia (manual) Slight Poikilocytosis (manual Slight Anisocytosis (manual) Slight Target Cells Slight Puncture Site Rr pCO2 36 pO2 78 L HCO3 20.9 L ABG pH 7.35 ABG Total CO2 21.0 L ABG O2 Saturation 96.9 ABG Base Excess -5.0 L ABG Hemoglobin 15.1 ABG Carboxyhemoglobin 1.4 POC ABG HHb (Measured) 3.0 ABG Methemoglobin 0.9 Harpreet Test Pos A-a O2 Difference 305.0 Respiratory Index 3.9 Hgb O2 Saturation 94.8 L Vent Mode Prvc Mechanical Rate 25 FiO2 60.0 Tidal Volume 450 PEEP 6 Sodium Potassium Chloride Carbon Dioxide Anion Gap BUN Creatinine Est GFR ( Amer) Est GFR (Non-Af Amer) POC Glucose (mg/dL) 119 H Random Glucose Calcium Phosphorus Magnesium Total Bilirubin AST ALT Alkaline Phosphatase Lactate Dehydrogenase Total Protein Albumin Globulin Albumin/Globulin Ratio 09/02/17 06:24 WBC RBC Hgb Hct MCV MCH MCHC RDW Plt Count MPV Neut % (Auto) Lymph % (Auto) [place] % (Auto) Eos % (Auto) Baso % (Auto) Neut # (Auto) Lymph # (Auto) [place] # (Auto) Eos # (Auto) Baso # (Auto) Neutrophils % (Manual) Band Neutrophils % Lymphocytes % (Manual) Reactive Lymphs % Monocytes % (Manual) Metamyelocytes % Nucleated RBC % Platelet Estimate Hypochromasia (manual) Poikilocytosis (manual Anisocytosis (manual) Target Cells Puncture Site pCO2 pO2 HCO3 ABG pH ABG Total CO2 ABG O2 Saturation ABG Base Excess ABG Hemoglobin ABG Carboxyhemoglobin POC ABG HHb (Measured) ABG Methemoglobin Harpreet Test A-a O2 Difference Respiratory Index Hgb O2 Saturation Vent Mode Mechanical Rate FiO2 Tidal Volume PEEP Sodium 134 Potassium 4.2 Chloride 98 Carbon Dioxide 22 Anion Gap 18 BUN 94 H Creatinine 3.3 H Est GFR ( Amer) 23 Est GFR (Non-Af Amer) 19 POC Glucose (mg/dL) Random Glucose 123 H Calcium 4.9 L* Phosphorus 5.6 H Magnesium 2.2 Total Bilirubin 7.2 H AST 56 ALT 48 Alkaline Phosphatase 159 H Lactate Dehydrogenase 2293 H Total Protein 5.1 L Albumin 2.4 L Globulin 2.7 Albumin/Globulin Ratio 0.9 L Fingerstick Blood Sugar Results: 119 Review of Systems - Review of Systems Systems not reviewed;Unavailable: Intubated Assessment/Plan - Assessment and Plan (Free Text) Assessment: 1. Acute hypoxic respiratory failure 2/2 Lg + PNA -bronch revealed limited secretions -Abx-Mepron 1500mg PO, Azithromycin 250mg IVPB Q24, merrem 500mg q8, micafungin 100mg q24 -Dr. Pace consult ID -Continue ventilation to keep spO2 >92 and pH b/w 7.35-7.45, -continue bronchodilators -IV steroids -peep decreased to 6 2. Septic shock -decrease IVF to 50ml/hr -titrate down norepinephrine -solu-cortef 50mg q8 3. Chronic systolic heart failure -f/u echo 4. HUSSAIN -urine output~16.5ml/hr, goal >.5ml/kg/hr -avoid nephrotoxic drugs -right femoral HD catheter placed 09/01 -received HD 09/01 5. Anemia-anemia of chronic disease -fecal occult blood -iron profile -folate/b12 6. Neutropenia -febrile ON~100.3, ice packs, Tylenol, monitor -granix 480mg sc -neutropenic precaution 7. GI -resume nepro feeds at 15/hr 8. thrombocytopenia -transfused 1U platelets 08/31 -platelets today 20 -f/u pm cbc and transfuse accordingly -f/u FDP and coags 9. Transaminitis -most likely 2/2 shock -monitor -avoid hepatotoxic drugs 10. Electrolyte disturbance -monitor and replete as needed -HD today -hypocalcemia 4.9, given 2,000mg of CaGluc 11. Skin -supplemental MVI/vitamin C + turn q2 hrs Ppx -pepcid 20mg IVP -SCD -Goals of care discussed with family Case discussed with Dr. Escobar <Oleksandr Escobar S - Last Filed: 09/02/17 17:46> CCU Objective - Vital Signs / Intake & Output Vital Signs (Last 4 hours): Vital Signs Temp Pulse Pulse Resp BP BP Pulse Ox 09/02/17 17:30 96/62 L 09/02/17 17:15 97/61 L 09/02/17 17:00 99/62 L 09/02/17 16:46 122 H 32 H 92/60 L 96 09/02/17 16:45 92/60 L 09/02/17 16:32 121 H 32 H 98/63 L 96 09/02/17 16:30 98/63 L 07/11/18 16:16 118 H 37 H 95/71 L 95 09/02/17 16:15 100.8 F H 95/71 L 09/02/17 16:00 100.6 F H 119 H 30 H 102/64 102/64 97 09/02/17 15:45 100.6 F H 117 H 37 H 99/66 L 98 09/02/17 15:40 100.6 F H 117 H 37 H 112/57 L 09/02/17 15:00 117 H 21 112/57 L 94 L 09/02/17 14:01 117 H 33 H 108/59 L 93 L Intake and Output (Last 8hrs): Intake & Output 09/02/17 09/02/17 09/02/17 06:59 14:59 22:59 Intake Total 1033.3 1085.3 105.7 Output Total 115 130 30 Balance 918.3 955.3 75.7 Weight 177 lb 7.554 oz Intake: IV 148 130 Intake, IV Amount 760.3 795.3 85.7 Right Distal Port 52.8 52.8 13.2 Internal Jugular Right Medial Port 400 400 50 Right Proximal Port 107.5 92.5 22.5 Right Wrist 200 250 Tube Feeding 125 160 20 Output: Urine 115 130 30 Urethral (Benjamin) 115 130 30 - Medications Active Medications: Active Medications Generic Name Dose Route Start Last Admin Trade Name Freq PRN Reason Stop Dose Admin Acetaminophen 650 mg 08/30/17 20:45 09/02/17 16:15 Tylenol 650mg/20.3ml Solution Ud PO 650 mg Q8 PRN Administration Fever >100.4 F Albuterol/Ipratropium 3 ml 08/29/17 08:00 Duoneb 3 Mg/0.5 Mg (3 Ml) Ud INH RQ4 RENAN Atovaquone 1,500 mg 08/27/17 13:30 09/02/17 10:17 Mepron PO 1,500 mg DAILY RENAN Administration Protocol Famotidine 20 mg 08/30/17 10:00 09/02/17 10:17 Pepcid IVP 20 mg DAILY RENAN Administration Hydrocortisone Sodium Succinate 50 mg 08/31/17 14:00 09/02/17 13:46 Solu-Cortef IV 50 mg Q8 RENAN Administration Propofol 1,000 mg in 100 mls @ 2.218 mls/hr 08/27/17 12:38 09/02/17 05:00 Diprivan IV 15 mcg/kg/min .Q24H PRN 6.654 mls/hr TITRATE PER MD ORDER Administration Protocol 5 MCG/KG/MIN Phenylephrine HCl 30 mg/ 253 mls @ 20.23 mls/hr 08/28/17 12:30 09/02/17 12:00 Dextrose IV 19.76 mcg/min .[id number] PRN 10 mls/hr TITRATE PER MD ORDER Titration Protocol 40 MCG/MIN Azithromycin 250 mg/ Sodium 250 mls @ 250 mls/hr 09/01/17 17:00 09/01/17 18: 21 Chloride IVPB 250 mls/hr Q24H RENAN Administration Protocol Meropenem 500 mg/ Sodium 100 mls @ 100 mls/hr 09/01/17 06:00 09/02/17 13:46 Chloride IVPB 100 mls/hr Q8 REANN Administration Protocol Micafungin Sodium 100 mg/ 100 mls @ 100 mls/hr 09/01/17 02:45 09/02/17 03:15 Sodium Chloride IV 100 mls/hr Q24H RENAN Administration Protocol Calcium Gluconate 2,000 mg/ 270 mls @ 135 mls/hr 09/02/17 16:00 Sodium Chloride IVPB 09/02/17 17:59 ONCE ONE Insulin Aspart 0 unit 08/27/17 18:00 09/02/17 12:50 Novolog SC Not Given Q6 RENAN Protocol Insulin Glargine 15 unit 08/30/17 10:00 09/02/17 10:17 Lantus SC 15 unit QAM RENAN Administration Lorazepam 1 mg 08/29/17 21:13 08/29/17 21:29 Ativan IVP 1 mg Q6H PRN Administration Anxiety Senna/Docusate Sodium 1 tab 08/28/17 10:00 09/02/17 10:18 Senokot S 50 Mg-8.6 Mg GT Not Given DAILY [facility] Vitamin B Complex/Vit C/Folic Acid 1 tab 09/01/17 08:00 09/02/17 10:17 Nephro-Chauncey PO 1 tab 0800 [facility] Administration - Patient Studies Lab Studies: Microbiology Studies 09/01/17 14:14 Fungal Culture - Preliminary Bronchial Washings 09/01/17 06:15 Blood Culture - Preliminary Blood-Thru Central Line NO GROWTH AFTER 24 HOURS 09/01/17 06:15 Blood Culture - Preliminary Blood-Thru Central Line NO GROWTH AFTER 24 HOURS Lab Studies 09/02/17 09/02/17 09/02/17 Range/Units 16:39 16:39 12:36 WBC 0.5 L* (4.8-10.8) K/uL RBC 4.02 L (4.40-5.90) Mil/uL Hgb 11.7 L (12.0-18.0) g/dL Hct 33.7 L (35.0-51.0) % MCV 83.8 (80.0-94.0) fL MCH 29.1 (27.0-31.0) pg MCHC 34.7 (33.0-37.0) g/dL RDW 18.0 H (11.5-14.5) % Plt Count 17 L* (130-400) K/uL MPV 9.2 (7.2-11.7) fL Neut % (Auto) (50.0-75.0) % Lymph % (Auto) (20.0-40.0) % [place] % (Auto) (0.0-10.0) % Eos % (Auto) (0.0-4.0) % Baso % (Auto) (0.0-2.0) % Neut # (Auto) (1.8-7.0) K/uL Lymph # (Auto) (1.0-4.3) K/uL [place] # (Auto) (0.0-0.8) K/uL Eos # (Auto) (0.0-0.7) K/uL Baso # (Auto) (0.0-0.2) K/uL Neutrophils % (Manual) (50-75) % Band Neutrophils % (0-2) % Lymphocytes % (Manual) (20-40) % Reactive Lymphs % (0-0) % Monocytes % (Manual) (0-10) % Metamyelocytes % (0-0) % Nucleated RBC % (0-0) % Platelet Estimate (NORMAL) Hypochromasia (manual) Poikilocytosis (manual Anisocytosis (manual) Target Cells PT 15.5 H (9.7-12.2) SECONDS INR 1.4 Fibrin Degrad Products Positive H (NEGATIVE) Fibrin Degrad Prod, Qt >40 H (<10) ug/mL Puncture Site pCO2 (35-45) mm/Hg pO2 (80-100) mm/Hg HCO3 (21-28) mmol/L ABG pH (7.35-7.45) ABG Total CO2 (22-28) mmol/L ABG O2 Saturation (95-98) % ABG Base Excess (-2.0-3.0) mmol/L ABG Hemoglobin (11.7-17.4) g/dL ABG Carboxyhemoglobin (0.5-1.5) % POC ABG HHb (Measured) (0.0-5.0) % ABG Methemoglobin (0.0-3.0) % Harpreet Test A-a O2 Difference mm/Hg Respiratory Index Hgb O2 Saturation (95.0-98.0) % Vent Mode Mechanical Rate FiO2 % Tidal Volume PEEP Sodium (132-148) mmol/L Potassium (3.6-5.2) mmol/L Chloride (98-107) mmol/L Carbon Dioxide (22-30) mmol/L Anion Gap (10-20) BUN (9-20) mg/dL Creatinine (0.8-1.5) mg/dL Est GFR ( Amer) Est GFR (Non-Af Amer) POC Glucose (mg/dL) 158 H (65-110) mg/dL Random Glucose (75-110) mg/dL Calcium (8.6-10.4) mg/dl Phosphorus (2.5-4.5) mg/dL Magnesium (1.6-2.3) mg/dL Total Bilirubin (0.2-1.3) mg/dL AST (17-59) U/L ALT (21-72) U/L Alkaline Phosphatase (38-126) U/L Lactate Dehydrogenase (313-618) U/L Total Protein (6.3-8.3) g/dL Albumin (3.5-5.0) g/dL Globulin (2.2-3.9) gm/dL Albumin/Globulin Ratio (1.0-2.1) 09/02/17 09/02/17 09/02/17 Range/Units 06:24 06:24 05:26 WBC 0.5 L* (4.8-10.8) K/uL RBC 3.58 L (4.40-5.90) Mil/uL Hgb 10.4 L (12.0-18.0) g/dL Hct 30.0 L (35.0-51.0) % MCV 83.9 (80.0-94.0) fL MCH 29.0 (27.0-31.0) pg MCHC 34.6 (33.0-37.0) g/dL RDW 18.1 H (11.5-14.5) % Plt Count 20 L* D (130-400) K/uL MPV 8.9 (7.2-11.7) fL Neut % (Auto) 23.4 L (50.0-75.0) % Lymph % (Auto) 54.6 H (20.0-40.0) % [place] % (Auto) 21.6 H (0.0-10.0) % Eos % (Auto) 0.4 (0.0-4.0) % Baso % (Auto) 0.0 (0.0-2.0) % Neut # (Auto) 0.1 L (1.8-7.0) K/uL Lymph # (Auto) 0.3 L (1.0-4.3) K/uL [place] # (Auto) 0.1 (0.0-0.8) K/uL Eos # (Auto) 0.0 (0.0-0.7) K/uL Baso # (Auto) 0.0 (0.0-0.2) K/uL Neutrophils % (Manual) 30 L (50-75) % Band Neutrophils % 4 H (0-2) % Lymphocytes % (Manual) 40 (20-40) % Reactive Lymphs % 2 H (0-0) % Monocytes % (Manual) 22 H (0-10) % Metamyelocytes % 2 H (0-0) % Nucleated RBC % 1 H (0-0) % Platelet Estimate Markedly decreased L (NORMAL) Hypochromasia (manual) Slight Poikilocytosis (manual Slight Anisocytosis (manual) Slight Target Cells Slight PT (9.7-12.2) SECONDS INR Fibrin Degrad Products (NEGATIVE) Fibrin Degrad Prod, Qt (<10) ug/mL Puncture Site pCO2 (35-45) mm/Hg pO2 (80-100) mm/Hg HCO3 (21-28) mmol/L ABG pH (7.35-7.45) ABG Total CO2 (22-28) mmol/L ABG O2 Saturation (95-98) % ABG Base Excess (-2.0-3.0) mmol/L ABG Hemoglobin (11.7-17.4) g/dL ABG Carboxyhemoglobin (0.5-1.5) % POC ABG HHb (Measured) (0.0-5.0) % ABG Methemoglobin (0.0-3.0) % Harpreet Test A-a O2 Difference mm/Hg Respiratory Index Hgb O2 Saturation (95.0-98.0) % Vent Mode Mechanical Rate FiO2 % Tidal Volume PEEP Sodium 134 (132-148) mmol/L Potassium 4.2 (3.6-5.2) mmol/L Chloride 98 (98-107) mmol/L Carbon Dioxide 22 (22-30) mmol/L Anion Gap 18 (10-20) BUN 94 H (9-20) mg/dL Creatinine 3.3 H (0.8-1.5) mg/dL Est GFR ( Amer) 23 Est GFR (Non-Af Amer) 19 POC Glucose (mg/dL) 119 H (65-110) mg/dL Random Glucose 123 H (75-110) mg/dL Calcium 4.9 L* (8.6-10.4) mg/dl Phosphorus 5.6 H (2.5-4.5) mg/dL Magnesium 2.2 (1.6-2.3) mg/dL Total Bilirubin 7.2 H (0.2-1.3) mg/dL AST 56 (17-59) U/L ALT 48 (21-72) U/L Alkaline Phosphatase 159 H (38-126) U/L Lactate Dehydrogenase 2293 H (313-618) U/L Total Protein 5.1 L (6.3-8.3) g/dL Albumin 2.4 L (3.5-5.0) g/dL Globulin 2.7 (2.2-3.9) gm/dL Albumin/Globulin Ratio 0.9 L (1.0-2.1) 09/02/17 09/01/17 09/01/17 Range/Units 04:25 23:46 17:31 WBC (4.8-10.8) K/uL RBC (4.40-5.90) Mil/uL Hgb (12.0-18.0) g/dL Hct (35.0-51.0) % MCV (80.0-94.0) fL MCH (27.0-31.0) pg MCHC (33.0-37.0) g/dL RDW (11.5-14.5) % Plt Count (130-400) K/uL MPV (7.2-11.7) fL Neut % (Auto) (50.0-75.0) % Lymph % (Auto) (20.0-40.0) % [place] % (Auto) (0.0-10.0) % Eos % (Auto) (0.0-4.0) % Baso % (Auto) (0.0-2.0) % Neut # (Auto) (1.8-7.0) K/uL Lymph # (Auto) (1.0-4.3) K/uL [place] # (Auto) (0.0-0.8) K/uL Eos # (Auto) (0.0-0.7) K/uL Baso # (Auto) (0.0-0.2) K/uL Neutrophils % (Manual) (50-75) % Band Neutrophils % (0-2) % Lymphocytes % (Manual) (20-40) % Reactive Lymphs % (0-0) % Monocytes % (Manual) (0-10) % Metamyelocytes % (0-0) % Nucleated RBC % (0-0) % Platelet Estimate (NORMAL) Hypochromasia (manual) Poikilocytosis (manual Anisocytosis (manual) Target Cells PT (9.7-12.2) SECONDS INR Fibrin Degrad Products (NEGATIVE) Fibrin Degrad Prod, Qt (<10) ug/mL Puncture Site Rr pCO2 36 (35-45) mm/Hg pO2 78 L (80-100) mm/Hg HCO3 20.9 L (21-28) mmol/L ABG pH 7.35 (7.35-7.45) ABG Total CO2 21.0 L (22-28) mmol/L ABG O2 Saturation 96.9 (95-98) % ABG Base Excess -5.0 L (-2.0-3.0) mmol/L ABG Hemoglobin 15.1 (11.7-17.4) g/dL ABG Carboxyhemoglobin 1.4 (0.5-1.5) % POC ABG HHb (Measured) 3.0 (0.0-5.0) % ABG Methemoglobin 0.9 (0.0-3.0) % Harpreet Test Pos A-a O2 Difference 305.0 mm/Hg Respiratory Index 3.9 Hgb O2 Saturation 94.8 L (95.0-98.0) % Vent Mode Prvc Mechanical Rate 25 FiO2 60.0 % Tidal Volume 450 PEEP 6 Sodium (132-148) mmol/L Potassium (3.6-5.2) mmol/L Chloride (98-107) mmol/L Carbon Dioxide (22-30) mmol/L Anion Gap (10-20) BUN (9-20) mg/dL Creatinine (0.8-1.5) mg/dL Est GFR ( Amer) Est GFR (Non-Af Amer) POC Glucose (mg/dL) 123 H 127 H (65-110) mg/dL Random Glucose (75-110) mg/dL Calcium (8.6-10.4) mg/dl Phosphorus (2.5-4.5) mg/dL Magnesium (1.6-2.3) mg/dL Total Bilirubin (0.2-1.3) mg/dL AST (17-59) U/L ALT (21-72) U/L Alkaline Phosphatase (38-126) U/L Lactate Dehydrogenase (313-618) U/L Total Protein (6.3-8.3) g/dL Albumin (3.5-5.0) g/dL Globulin (2.2-3.9) gm/dL Albumin/Globulin Ratio (1.0-2.1) Laboratory Results - last 24 hr 09/01/17 09/01/17 09/02/17 17:31 23:46 04:25 WBC RBC Hgb Hct MCV MCH MCHC RDW Plt Count MPV Neut % (Auto) Lymph % (Auto) [place] % (Auto) Eos % (Auto) Baso % (Auto) Neut # (Auto) Lymph # (Auto) [place] # (Auto) Eos # (Auto) Baso # (Auto) Neutrophils % (Manual) Band Neutrophils % Lymphocytes % (Manual) Reactive Lymphs % Monocytes % (Manual) Metamyelocytes % Nucleated RBC % Platelet Estimate Hypochromasia (manual) Poikilocytosis (manual Anisocytosis (manual) Target Cells PT INR Fibrin Degrad Products Fibrin Degrad Prod, Qt Puncture Site Rr pCO2 36 pO2 78 L HCO3 20.9 L ABG pH 7.35 ABG Total CO2 21.0 L ABG O2 Saturation 96.9 ABG Base Excess -5.0 L ABG Hemoglobin 15.1 ABG Carboxyhemoglobin 1.4 POC ABG HHb (Measured) 3.0 ABG Methemoglobin 0.9 Harpreet Test Pos A-a O2 Difference 305.0 Respiratory Index 3.9 Hgb O2 Saturation 94.8 L Vent Mode Prvc Mechanical Rate 25 FiO2 60.0 Tidal Volume 450 PEEP 6 Sodium Potassium Chloride Carbon Dioxide Anion Gap BUN Creatinine Est GFR ( Amer) Est GFR (Non-Af Amer) POC Glucose (mg/dL) 127 H 123 H Random Glucose Calcium Phosphorus Magnesium Total Bilirubin AST ALT Alkaline Phosphatase Lactate Dehydrogenase Total Protein Albumin Globulin Albumin/Globulin Ratio 09/02/17 09/02/17 09/02/17 05:26 06:24 06:24 WBC 0.5 L* RBC 3.58 L Hgb 10.4 L Hct 30.0 L MCV 83.9 MCH 29.0 MCHC 34.6 RDW 18.1 H Plt Count 20 L* D MPV 8.9 Neut % (Auto) 23.4 L Lymph % (Auto) 54.6 H [place] % (Auto) 21.6 H Eos % (Auto) 0.4 Baso % (Auto) 0.0 Neut # (Auto) 0.1 L Lymph # (Auto) 0.3 L [place] # (Auto) 0.1 Eos # (Auto) 0.0 Baso # (Auto) 0.0 Neutrophils % (Manual) 30 L Band Neutrophils % 4 H Lymphocytes % (Manual) 40 Reactive Lymphs % 2 H Monocytes % (Manual) 22 H Metamyelocytes % 2 H Nucleated RBC % 1 H Platelet Estimate Markedly decreased L Hypochromasia (manual) Slight Poikilocytosis (manual Slight Anisocytosis (manual) Slight Target Cells Slight PT INR Fibrin Degrad Products Fibrin Degrad Prod, Qt Puncture Site pCO2 pO2 HCO3 ABG pH ABG Total CO2 ABG O2 Saturation ABG Base Excess ABG Hemoglobin ABG Carboxyhemoglobin POC ABG HHb (Measured) ABG Methemoglobin Harpreet Test A-a O2 Difference Respiratory Index Hgb O2 Saturation Vent Mode Mechanical Rate FiO2 Tidal Volume PEEP Sodium 134 Potassium 4.2 Chloride 98 Carbon Dioxide 22 Anion Gap 18 BUN 94 H Creatinine 3.3 H Est GFR ( Amer) 23 Est GFR (Non-Af Amer) 19 POC Glucose (mg/dL) 119 H Random Glucose 123 H Calcium 4.9 L* Phosphorus 5.6 H Magnesium 2.2 Total Bilirubin 7.2 H AST 56 ALT 48 Alkaline Phosphatase 159 H Lactate Dehydrogenase 2293 H Total Protein 5.1 L Albumin 2.4 L Globulin 2.7 Albumin/Globulin Ratio 0.9 L 09/02/17 09/02/17 09/02/17 12:36 16:39 16:39 WBC 0.5 L* RBC 4.02 L Hgb 11.7 L Hct 33.7 L MCV 83.8 MCH 29.1 MCHC 34.7 RDW 18.0 H Plt Count 17 L* MPV 9.2 Neut % (Auto) Lymph % (Auto) [place] % (Auto) Eos % (Auto) Baso % (Auto) Neut # (Auto) Lymph # (Auto) [place] # (Auto) Eos # (Auto) Baso # (Auto) Neutrophils % (Manual) Band Neutrophils % Lymphocytes % (Manual) Reactive Lymphs % Monocytes % (Manual) Metamyelocytes % Nucleated RBC % Platelet Estimate Hypochromasia (manual) Poikilocytosis (manual Anisocytosis (manual) Target Cells PT 15.5 H INR 1.4 Fibrin Degrad Products Positive H Fibrin Degrad Prod, Qt >40 H Puncture Site pCO2 pO2 HCO3 ABG pH ABG Total CO2 ABG O2 Saturation ABG Base Excess ABG Hemoglobin ABG Carboxyhemoglobin POC ABG HHb (Measured) ABG Methemoglobin Harpreet Test A-a O2 Difference Respiratory Index Hgb O2 Saturation Vent Mode Mechanical Rate FiO2 Tidal Volume PEEP Sodium Potassium Chloride Carbon Dioxide Anion Gap BUN Creatinine Est GFR ( Amer) Est GFR (Non-Af Amer) POC Glucose (mg/dL) 158 H Random Glucose Calcium Phosphorus Magnesium Total Bilirubin AST ALT Alkaline Phosphatase Lactate Dehydrogenase Total Protein Albumin Globulin Albumin/Globulin Ratio Attending/Attestation - Attestation I have personally seen and examined this patient.: Yes I have fully participated in the care of the patient.: Yes I have reviewed all pertinent clinical information: Yes Notes (Text): 09/02/17 17:44 patient seen and examined in the intensive care unit. No change in Patient condition Patient remained intubated on ventilator with FiO2 60% Diffuse infiltrate in left lung Continue antibiotics as per infectious disease Status post bronchoscopy and BAL remained neutropenic and thrombocytopenic/ case discussed with hematology Spoke with family at length Continue hemodialysis
--- NOTE | 2017-09-02 10:07 | RAD ---
Date of service: 09/02/2017 HISTORY: intubated COMPARISON: 09/01/2017. FINDINGS: The right IJV line terminates in the SVC. The nasogastric tube terminates in the stomach. The endotracheal tube terminates 3 cm proximal to the marcial. LUNGS: The right lung is clear. There is no change in dense consolidation in the left lung. PLEURA: Suspect small left pleural effusion, no pneumothorax apparent. CARDIOVASCULAR: Stable. OSSEOUS STRUCTURES: No significant abnormalities. VISUALIZED UPPER ABDOMEN: Normal. OTHER FINDINGS: None. IMPRESSION: No interval change in dense consolidation in the left lung. Stable position of support line and tubes.
[2017-09-02] MEDS: (Lantus) Insulin Glargine, Recombinant SC SCH (10:17)
[2017-09-02] MEDS: Multivitamin Vitamin B Complex (Nephro-Vite) Tab PO SCH (10:17)
[2017-09-02] MEDS: Atovaquone 750 mg/5 ml Susp UD PO SCH (10:17)
[2017-09-02] MEDS: Docusate-Senna 50 mg-8.6 mg Tab GT SCH (10:18)
--- NOTE | 2017-09-02 15:04 | CP.PCM.PN ---
Subjective - Date & Time of Evaluation Date of Evaluation: 09/02/17 Time of Evaluation: 15:03 - Subjective Subjective: Nephrology Consultation Note: Assessment: critical oligoanuric Acute Kidney Injury (N17.9) likely ATN due to septic shock started HD 09/01/17 Neutropenic fever/pancytopenia with Left lung pneumonia with legionella s/p bronch 09/01/17 abnormal LFT with hyperbilirubinemia metastatic prostate CA on chemo/radiation acute respi failure s/p mechanical ventilation combined respi and metabolic acidosis Hypocalcemia, hyponatremia Plan HD today 2nd session maintain hemodynamic stable. hold ACEI/ARB due to HUSSAIN Monitor Input/Output, daily weights and renal function with basic metabolic panel can d/c Bicarb drip agree with IV calcium supplements pt on stress dose of steroids. also getting Granix ID, heme/onc following Dose meds/antibiotics for reduced GFR<10. Avoid fleets enema/magnesium based laxatives. Avoid nephrotoxins/NSAIDs/ iodinated contrast (unless needed emergently) Glycemic control Further work up/management as per primary team Thanks for allowing me to participate in care of your patient. Will follow patient with you. Please call if any Qs. had d/w team and family Dr Cristi Pandey Office: [phone] Chief Complaint; unable to obtain reason for consult: HUSSAIN HPI: Pt is a 61 M with hx of metastatic prostate CA on chemo/radiation therapy admitted with neutropenic fever and pneumonia complicated by septic shock requiring IV pressors and respi failure, intubated transferred to ICU. renal consult for HUSSAIN evaluation no knwon OTC/herbal meds or NSAIDs No known recent iodinated contrast exposure. Noted obvious episodes of low BP ( 81/48). ROS: unable to obtain Physical Examination: General Appearance: Comfortable, in no acute respiratory distress, ill appearing Vitals reviewed and noted as below Head; Atraumatic, normocephalic. ENT: orally intubated EYES: Pupils are equal, round and reactive to light accommodation. Sclera is icteric. Neck; supple no lymphadenopathy, no thyromegaly or bruit Lungs: Normal respiratory rate/effort. Breath sounds bilateral equal with basal crackles Heart: Normal rate. s1s2 normal. No rub or gallop. Extremities: 1+ edema. No varicose veins Neurological: Patient is sedated Skin: Warm and dry. Normal turgor. No rash. Palpitation: Normal elasticity for age Abdomen: Abdomen is soft. Bowel sounds +. There is no abdominal tenderness, no guarding/rigidity no organomegaly Psych: unable MSK: no joint tenderness or swelling. Digits and nails normal, no deformity : kidney or bladder not palpable. has montemayor catheter, no scrotal swelling access: rt femoral shiley Labs/imaging reviewed. Past medical history, past surgical history, family history, social history, allergy reviewed and noted as below Family hx: no hx of CKD. Rest non-contributory work up: renal sono: WNL UA no protein Objective - Vital Signs/Intake and Output Vital Signs (last 24 hours): Temp Pulse Resp BP Pulse Ox 97.9 F 116 H 32 H 114/69 95 09/02/17 08:00 09/02/17 11:00 09/02/17 11:00 09/02/17 11:00 09/02/17 11:00 Intake and Output: 09/02/17 09/02/17 06:59 18:59 Intake Total 1751.1 782.1 Output Total 160 95 Balance 1591.1 687.1 - Medications Medications: Current Medications Acetaminophen (Tylenol 650mg/20.3ml Solution Ud) 650 mg PO Q8 PRN PRN Reason: Fever >100.4 F Last Admin: 09/01/17 08:19 Dose: 650 mg Albuterol/Ipratropium (Duoneb 3 Mg/0.5 Mg (3 Ml) Ud) 3 ml INH RQ4 RENAN Atovaquone (Mepron) 1,500 mg PO DAILY RENAN PRN Reason: Protocol Last Admin: 09/02/17 10:17 Dose: 1,500 mg Famotidine (Pepcid) 20 mg IVP DAILY RENAN Last Admin: 09/02/17 10:17 Dose: 20 mg Hydrocortisone Sodium Succinate (Solu-Cortef) 50 mg IV Q8 RENAN Last Admin: 09/02/17 13:46 Dose: 50 mg Propofol (Diprivan) 1,000 mg in 100 mls @ 2.218 mls/hr IV .Q24H PRN; Protocol; 5 MCG/KG/MIN PRN Reason: TITRATE PER MD ORDER Last Admin: 09/02/17 05:00 Dose: 15 mcg/kg/min, 6.654 mls/hr Phenylephrine HCl 30 mg/ (Dextrose) 253 mls @ 20.23 mls/hr IV .[id number] PRN; Protocol; 40 MCG/MIN PRN Reason: TITRATE PER MD ORDER Last Titration: 09/02/17 01:50 Dose: 25 mcg/min, 12.64 mls/hr Sodium Bicarbonate 75 meq/ (Sodium Chloride) 1,075 mls @ 50 mls/hr IV .[id number] RENAN Last Admin: 09/02/17 05:00 Dose: 50 mls/hr Azithromycin 250 mg/ Sodium (Chloride) 250 mls @ 250 mls/hr IVPB Q24H RENAN PRN Reason: Protocol Last Admin: 09/01/17 18:21 Dose: 250 mls/hr Meropenem 500 mg/ Sodium (Chloride) 100 mls @ 100 mls/hr IVPB Q8 RENAN PRN Reason: Protocol Last Admin: 09/02/17 13:46 Dose: 100 mls/hr Micafungin Sodium 100 mg/ (Sodium Chloride) 100 mls @ 100 mls/hr IV Q24H RENAN PRN Reason: Protocol Last Admin: 09/02/17 03:15 Dose: 100 mls/hr Insulin Aspart (Novolog) 0 unit SC Q6 RENAN PRN Reason: Protocol Last Admin: 09/02/17 12:50 Dose: Not Given Insulin Glargine (Lantus) 15 unit SC QAM [facility] Last Admin: 09/02/17 10:17 Dose: 15 unit Lorazepam (Ativan) 1 mg IVP Q6H PRN PRN Reason: Anxiety Last Admin: 08/29/17 21:29 Dose: 1 mg Senna/Docusate Sodium (Senokot S 50 Mg-8.6 Mg) 1 tab GT DAILY [facility] Last Admin: 09/02/17 10:18 Dose: Not Given Vitamin B Complex/Vit C/Folic Acid (Nephro-Chauncey) 1 tab PO 0800 [facility] Last Admin: 09/02/17 10:17 Dose: 1 tab - Labs Labs: 09/02/17 06:24 09/02/17 06:24 PT 15.4 SECONDS (9.7-12.2) H 08/31/17 14:07 INR 1.4 08/31/17 14:07 APTT 36 SECONDS (21-34) H D 08/31/17 14:07
[2017-09-02] MEDS: Acetaminophen 650mg/20.3ml solution UD PO PRN ×2 (16:15→23:53)
[2017-09-02 16:44] LABS: HEMOGLOBIN 11.7 g/dL (12.0-18.0); MEAN CELL VOLUME 83.8 fL (80.0-94.0); MEAN CORPUSCULAR HEMOGLOBIN 29.1 pg (27.0-31.0); MEAN CORPUSCULAR HGB CONC 34.7 g/dL (33.0-37.0); MEAN PLATELET VOLUME 9.2 fL (7.2-11.7); RBC 4.02 Mil/uL (4.40-5.90)
[2017-09-02 16:53] LABS: INR 1.4; PROTHROMBIN TIME 15.5 SECONDS (9.7-12.2); WHITE BLOOD COUNT 0.5 K/uL (4.8-10.8)
[2017-09-02 17:06] LABS: FDP INTERPRETATION POSITIVE (NEGATIVE)
[2017-09-02 17:07] LABS: FDP QUANTITY >40 ug/mL (<10)
[2017-09-02] MEDS: Azithromycin 250 MG in Sodium Chloride 0.9% 250 ML IVPB SCH (18:20)
[2017-09-02] MEDS: Phenylephrine 30 MG in Dextrose 5% In Water 250 ML IV PRN (18:42)
[2017-09-02] MEDS ORDERED: Phenylephrine 30 MG in Sodium Chloride 0.9% 250 ML IV PRN (19:53)
[2017-09-02] MEDS: Vasopressin 40 UNITS in Dextrose 5% In Water 38 ML IV SCH (20:25)
--- NOTE | 2017-09-02 20:52 | CP.PCM.PN ---
Subjective - Date & Time of Evaluation Date of Evaluation: 09/02/17 Time of Evaluation: 11:40 - Subjective Subjective: clinically same Objective - Vital Signs/Intake and Output Vital Signs (last 24 hours): Temp Pulse Resp BP Pulse Ox 98.1 F 111 H 29 H 75/41 L 97 09/02/17 20:00 09/02/17 20:20 09/02/17 20:20 09/02/17 20:25 09/02/17 20:20 Intake and Output: 09/02/17 09/03/17 18:59 06:59 Intake Total 1304.2 61.2 Output Total 160 30 Balance 1144.2 31.2 - Medications Medications: Current Medications Acetaminophen (Tylenol 650mg/20.3ml Solution Ud) 650 mg PO Q8 PRN PRN Reason: Fever >100.4 F Last Admin: 09/02/17 16:15 Dose: 650 mg Albuterol/Ipratropium (Duoneb 3 Mg/0.5 Mg (3 Ml) Ud) 3 ml INH RQ4 RENAN Atovaquone (Mepron) 1,500 mg PO DAILY RENAN PRN Reason: Protocol Last Admin: 09/02/17 10:17 Dose: 1,500 mg Famotidine (Pepcid) 20 mg IVP DAILY [facility] Last Admin: 09/02/17 10:17 Dose: 20 mg Hydrocortisone Sodium Succinate (Solu-Cortef) 50 mg IV Q8 RENAN Last Admin: 09/02/17 13:46 Dose: 50 mg Propofol (Diprivan) 1,000 mg in 100 mls @ 2.218 mls/hr IV .Q24H PRN; Protocol; 5 MCG/KG/MIN PRN Reason: TITRATE PER MD ORDER Last Admin: 09/02/17 05:00 Dose: 15 mcg/kg/min, 6.654 mls/hr Phenylephrine HCl 30 mg/ (Dextrose) 253 mls @ 20.23 mls/hr IV .[id number] PRN; Protocol; 40 MCG/MIN PRN Reason: TITRATE PER MD ORDER Last Titration: 09/02/17 19:58 Dose: 40 mcg/min, 20.23 mls/hr Azithromycin 250 mg/ Sodium (Chloride) 250 mls @ 250 mls/hr IVPB Q24H RENAN PRN Reason: Protocol Last Admin: 09/02/17 18:20 Dose: 250 mls/hr Meropenem 500 mg/ Sodium (Chloride) 100 mls @ 100 mls/hr IVPB Q8 RENAN PRN Reason: Protocol Last Admin: 09/02/17 13:46 Dose: 100 mls/hr Micafungin Sodium 100 mg/ (Sodium Chloride) 100 mls @ 100 mls/hr IV Q24H RENAN PRN Reason: Protocol Last Admin: 09/02/17 03:15 Dose: 100 mls/hr Vasopressin 40 units/ Dextrose 40 mls @ 0.6 mls/hr IV .Q24H RENAN; 0.01 UNITS/MIN PRN Reason: Protocol Last Admin: 09/02/17 20:25 Dose: 0.02 units/min, 1.2 mls/hr Insulin Aspart (Novolog) 0 unit SC Q6 RENAN PRN Reason: Protocol Last Admin: 09/02/17 18:03 Dose: Not Given Insulin Glargine (Lantus) 15 unit SC QAM [facility] Last Admin: 09/02/17 10:17 Dose: 15 unit Lorazepam (Ativan) 1 mg IVP Q6H PRN PRN Reason: Anxiety Last Admin: 08/29/17 21:29 Dose: 1 mg Senna/Docusate Sodium (Senokot S 50 Mg-8.6 Mg) 1 tab GT DAILY [facility] Last Admin: 09/02/17 10:18 Dose: Not Given Vitamin B Complex/Vit C/Folic Acid (Nephro-Chauncey) 1 tab PO 0800 [facility] Last Admin: 09/02/17 10:17 Dose: 1 tab - Labs Labs: 09/02/17 16:39 09/02/17 06:24 PT 15.5 SECONDS (9.7-12.2) H 09/02/17 16:39 INR 1.4 09/02/17 16:39 APTT 36 SECONDS (21-34) H D 08/31/17 14:07 - Constitutional Appears: Well - Head Exam Head Exam: ATRAUMATIC, NORMAL INSPECTION, NORMOCEPHALIC - Eye Exam Eye Exam: EOMI, Normal appearance, PERRL Pupil Exam: NORMAL ACCOMODATION, PERRL - ENT Exam ENT Exam: Mucous Membranes Moist, Normal Exam - Neck Exam Neck Exam: Full ROM, Normal Inspection. absent: Lymphadenopathy - Respiratory Exam Respiratory Exam: Decreased Breath Sounds - Cardiovascular Exam Cardiovascular Exam: REGULAR RHYTHM, +S1, +S2 - GI/Abdominal Exam GI & Abdominal Exam: Soft, Diminished Bowel Sounds - Rectal Exam Rectal Exam: Deferred Assessment and Plan (1) Acute respiratory failure Status: Acute (2) Anemia Status: Acute (3) Chronic pain Status: Acute (4) Esophagitis Status: Acute (5) Gastritis Status: Acute (6) Pancytopenia Status: Acute (7) Abdominal pain Status: Acute (8) Chest discomfort Status: Acute (9) Constipation Status: Acute (10) Intractable abdominal pain Status: Acute (11) Metastatic malignant neoplasm to prostate Status: Acute (12) Neutropenia Status: Acute
[2017-09-03] MEDS: Micafungin 100 MG in Sodium Chloride 0.9% 100 ML IV SCH (03:30)
[2017-09-03] MEDS: Propofol 10 mg/ml 1,000 MG/100 ML VIAL IV PRN (04:00)
[2017-09-03] MEDS: Acetaminophen 650mg/20.3ml solution UD PO PRN ×3 (04:18→18:16)
[2017-09-03] MEDS: Meropenem 500 MG in Sodium Chloride 0.9% 100 ML IVPB SCH ×3 (05:07→21:52)
[2017-09-03] MEDS: (Novolog) Insulin Aspart, Recombinant 100 u/ml 10 ml vial SC SCH ×3 (05:17→18:34)
--- NOTE | 2017-09-03 05:58 | OP ---
PROCEDURE DATE: 09/02/2017 PREOPERATIVE DIAGNOSIS: Left leg pneumonia. POSTOPERATIVE DIAGNOSIS: Left leg pneumonia. PROCEDURE: Fiberoptic bronchoscopy with bronchoalveolar lavage. Fiberoptic bronchoscopy procedure was done. After obtaining consent from family, explaining risks and benefits, which she understood, the procedure was done, as the patient was sedated. The bronchoscope was passed with an endotracheal tube into the trachea. Clear secretions were noted which were suctioned out. The main marcial was sharp. First, the bronchoscope was passed into the right side which appeared normal. Clear secretions were noted, which were suctioned out. Next, the bronchoscope was passed on the left side. The left upper, the left lower all appeared slightly hyperemic. No endobronchial lesions seen. No purulent secretions noted. Clear secretions noted. Bronchioalveolar lavage done in the left lower lobe. The patient tolerated the procedure well. Oleksandr Escobar MD
[2017-09-03 06:21] LABS: EOS % 0.2 % (0.0-4.0); HEMOGLOBIN 10.4 g/dL (12.0-18.0); LYMPH # 0.5 K/uL (1.0-4.3); LYMPH % 81.7 % (20.0-40.0); MEAN CELL VOLUME 84.8 fL (80.0-94.0); MEAN CORPUSCULAR HEMOGLOBIN 29.8 pg (27.0-31.0); MEAN CORPUSCULAR HGB CONC 35.1 g/dL (33.0-37.0); MEAN PLATELET VOLUME 9.9 fL (7.2-11.7); MONO % 6.3 % (0.0-10.0); NEUT # 0.1 K/uL (1.8-7.0); NEUT % 11.8 % (50.0-75.0); NRBC % 4.9 % (0.0-2.0); RBC 3.49 Mil/uL (4.40-5.90)
[2017-09-03 06:27] LABS: ABG ALLEN TEST POS; ARTERIAL BLOOD GAS HCO3 20.3 mmol/L (21-28); ARTERIAL BLOOD GAS HEMOGLOBIN 10.7 g/dL (11.7-17.4); ARTERIAL BLOOD GAS O2 SAT 98.9 % (95-98); ARTERIAL BLOOD GAS PCO2 37 mm/Hg (35-45); ARTERIAL BLOOD GAS PH 7.33 (7.35-7.45); ARTERIAL BLOOD GAS PO2 113 mm/Hg (80-100); ARTERIAL BLOOD GAS TCO2 20.6 mmol/L (22-28)
[2017-09-03 06:34] LABS: WHITE BLOOD COUNT 0.7 K/uL (4.8-10.8)
[2017-09-03 06:57] LABS: ALB/GLOB RATIO 0.9 (1.0-2.1); ALBUMIN 2.5 g/dL (3.5-5.0); CALCIUM 5.2 mg/dl (8.6-10.4)
[2017-09-03] MEDS: Multivitamin Vitamin B Complex (Nephro-Vite) Tab PO SCH (08:26)
[2017-09-03] MEDS: Docusate-Senna 50 mg-8.6 mg Tab GT SCH (09:52)
[2017-09-03] MEDS: (Lantus) Insulin Glargine, Recombinant SC SCH (09:53)
[2017-09-03] MEDS: Atovaquone 750 mg/5 ml Susp UD PO SCH (09:56)
--- NOTE | 2017-09-03 14:34 | CP.CCUPN ---
<Yuko Hsieh - Last Filed: 09/03/17 19:00> CCU Subjective - Physician Review Subjective (Free Text): 61 yo male with PMHx of metastatic prostate cancer to bones presented with abdominal pain. He was admitted to the ICU in hypoxic respiratory failure 2/2 left sided PNA, requiring intubation. Pt seen and examined at bedside this morning. Unable to obtain ROS. Febrile overnight 102.1. Platelets 25 down from 17 last night. Urine o/p~12.5/ hr. 09/03/17 14:29 CCU Objective - Vital Signs / Intake & Output Vital Signs (Last 4 hours): Vital Signs Temp Pulse Resp BP Pulse Ox 09/03/17 14:01 98 H 24 111/54 L 92 L 09/03/17 14:00 98 H 26 H 92 L 09/03/17 13:46 104 H 33 H 127/65 90 L 09/03/17 13:31 103 H 32 H 138/65 91 L 09/03/17 13:16 104 H 31 H 128/64 90 L 09/03/17 13:01 103 H 30 H 136/66 90 L 09/03/17 13:00 107 H 22 91 L 09/03/17 12:45 105 H 31 H 132/64 91 L 09/03/17 12:31 106 H 30 H 128/65 91 L 09/03/17 12:16 106 H 31 H 134/67 91 L 09/03/17 12:00 101.8 F H 105 H 28 H 95 09/03/17 11:01 133/70 09/03/17 11:00 105 H 30 H 133/70 96 09/03/17 10:46 105 H 29 H 129/72 95 09/03/17 10:31 101 H 27 H 115/65 95 Intake and Output (Last 8hrs): Intake & Output 09/02/17 09/03/17 09/03/17 22:59 06:59 14:59 Intake Total 1060.1 597.8 365.6 Output Total 1090 80 Balance -29.9 517.8 365.6 Weight 176 lb 9.444 oz Intake: IV 200 213 Intake, IV Amount 840.1 384.8 365.6 Right Distal Port 52.8 52.8 50.6 Internal Jugular Right Medial Port 304.8 112.0 Right Proximal Port 112.5 220 315 Right Wrist 370 Tube Feeding 20 Output: Urine 90 80 Urethral (Benjamin) 90 80 Other 1000 - Physical Exam Physical Exam Limitations: Positive for: Altered Mental Status Head: Positive for: Atraumatic, Normocephalic Pupils: Positive for: Sluggish Mouth: Positive for: Moist Mucous Membranes Respiratory/Chest: Positive for: Decreased Breath Sounds (L>R) Cardiovascular: Positive for: Regular Rate and Rhythm. Negative for: Murmurs Abdomen: Positive for: Distention, Normal Bowel Sounds Upper Extremity: Positive for: Normal Inspection, Edema (edema developing). Negative for: Cyanosis Lower Extremity: Positive for: Normal Inspection, Edema (edema developing) Neurological: Negative for: GCS=15 Skin: Positive for: Normal Color, Hot Psychiatric: Negative for: Alert - Medications Active Medications: Active Medications Generic Name Dose Route Start Last Admin Trade Name Freq PRN Reason Stop Dose Admin Acetaminophen 650 mg 08/30/17 20:45 09/03/17 08:24 Tylenol 650mg/20.3ml Solution Ud PO 650 mg Q8 PRN Administration Fever >100.4 F Atovaquone 1,500 mg 08/27/17 13:30 09/03/17 09:56 Mepron PO 1,500 mg DAILY RENAN Administration Protocol Famotidine 20 mg 08/30/17 10:00 09/03/17 09:57 Pepcid IVP 20 mg DAILY RENAN Administration Hydrocortisone Sodium Succinate 50 mg 08/31/17 14:00 09/03/17 06:22 Solu-Cortef IV 50 mg Q8 RENAN Administration Propofol 1,000 mg in 100 mls @ 2.218 mls/hr 08/27/17 12:38 09/03/17 04:00 Diprivan IV 15 mcg/kg/min .Q24H PRN 6.654 mls/hr TITRATE PER MD ORDER Administration Protocol 5 MCG/KG/MIN Phenylephrine HCl 30 mg/ 253 mls @ 20.23 mls/hr 08/28/17 12:30 09/03/17 04:45 Dextrose IV 80 mcg/min .[id number] PRN 40.48 mls/hr TITRATE PER MD ORDER Titration Protocol 40 MCG/MIN Azithromycin 250 mg/ Sodium 250 mls @ 250 mls/hr 09/01/17 17:00 09/02/17 18: 20 Chloride IVPB 250 mls/hr Q24H RENAN Administration Protocol Meropenem 500 mg/ Sodium 100 mls @ 100 mls/hr 09/01/17 06:00 09/03/17 05:07 Chloride IVPB 100 mls/hr Q8 RENAN Administration Protocol Micafungin Sodium 100 mg/ 100 mls @ 100 mls/hr 09/01/17 02:45 09/03/17 03:30 Sodium Chloride IV 100 mls/hr Q24H RENAN Administration Protocol Vasopressin 40 units/ Dextrose 40 mls @ 0.6 mls/hr 09/02/17 20:30 09/03/17 03 :00 IV 0 units/min .Q24H RENAN 0 mls/hr Protocol Titration 0.01 UNITS/MIN Insulin Aspart 0 unit 08/27/17 18:00 09/03/17 05:17 Novolog SC 2 u Q6 RENAN Administration Protocol Insulin Glargine 15 unit 08/30/17 10:00 09/03/17 09:53 Lantus SC 15 unit QAM RENAN Administration Lorazepam 1 mg 08/29/17 21:13 08/29/17 21:29 Ativan IVP 1 mg Q6H PRN Administration Anxiety Senna/Docusate Sodium 1 tab 08/28/17 10:00 09/03/17 09:52 Senokot S 50 Mg-8.6 Mg GT Not Given DAILY [facility] Vitamin B Complex/Vit C/Folic Acid 1 tab 09/01/17 08:00 09/03/17 08:26 Nephro-Chauncey PO 1 tab 0800 RENAN Administration - Patient Studies Lab Studies: Microbiology Studies 09/01/17 06:15 Blood Culture - Preliminary Blood-Thru Central Line NO GROWTH AFTER 48 HOURS 09/01/17 06:15 Blood Culture - Preliminary Blood-Thru Central Line NO GROWTH AFTER 48 HOURS 09/01/17 14:14 Fungal Culture - Preliminary Bronchial Washings Lab Studies 09/03/17 09/03/17 09/03/17 Range/Units 12:28 06:11 06:11 WBC 0.7 L* (4.8-10.8) K/uL RBC 3.49 L (4.40-5.90) Mil/uL Hgb 10.4 L (12.0-18.0) g/dL Hct 29.6 L (35.0-51.0) % MCV 84.8 (80.0-94.0) fL MCH 29.8 (27.0-31.0) pg MCHC 35.1 (33.0-37.0) g/dL RDW 18.0 H (11.5-14.5) % Plt Count 15 L* (130-400) K/uL MPV 9.9 (7.2-11.7) fL Neut % (Auto) 11.8 L (50.0-75.0) % Lymph % (Auto) 81.7 H (20.0-40.0) % [place] % (Auto) 6.3 (0.0-10.0) % Eos % (Auto) 0.2 (0.0-4.0) % Baso % (Auto) 0.0 (0.0-2.0) % Neut # (Auto) 0.1 L (1.8-7.0) K/uL Lymph # (Auto) 0.5 L (1.0-4.3) K/uL [place] # (Auto) 0.0 (0.0-0.8) K/uL Eos # (Auto) 0.0 (0.0-0.7) K/uL Baso # (Auto) 0.0 (0.0-0.2) K/uL Total Counted Cancelled Neutrophils % (Manual) Cancelled Band Neutrophils % Cancelled Lymphocytes % (Manual) Cancelled Reactive Lymphs % Cancelled Monocytes % (Manual) Cancelled Eosinophils % (Manual) Cancelled Basophils % (Manual) Cancelled Metamyelocytes % Cancelled Myelocytes % Cancelled Promyelocytes % Cancelled Blast Cells % Cancelled Plasma Cell % (Manual) Cancelled Nucleated RBC % Cancelled Hypersegmented Polys Cancelled Smudge Cells Cancelled Toxic Granulation Cancelled Dohle Bodies Cancelled Vonda Rods Cancelled Platelet Estimate Cancelled Plt Clumps, EDTA Cancelled Large Platelets Cancelled Giant Platelets Cancelled RBC Morphology Cancelled Polychromasia Cancelled Hypochromasia (manual) Cancelled Poikilocytosis (manual Cancelled Basophilic Stippling Cancelled Anisocytosis (manual) Cancelled Microcytosis (manual) Cancelled Macrocytosis (manual) Cancelled Spherocytes Cancelled Sickle Cells Cancelled Target Cells Cancelled Tear Drop Cells Cancelled Ovalocytes Cancelled Stomatocytes Cancelled Helmet Cells Cancelled [place] Bodies Cancelled Courtney Cells Cancelled Acanthocytes (Spur) Cancelled Rouleaux Cancelled Schistocytes Cancelled PT (9.7-12.2) SECONDS INR Fibrin Degrad Products (NEGATIVE) Fibrin Degrad Prod, Qt (<10) ug/mL Puncture Site pCO2 (35-45) mm/Hg pO2 (80-100) mm/Hg HCO3 (21-28) mmol/L ABG pH (7.35-7.45) ABG Total CO2 (22-28) mmol/L ABG O2 Saturation (95-98) % ABG Base Excess (-2.0-3.0) mmol/L ABG Hemoglobin (11.7-17.4) g/dL ABG Carboxyhemoglobin (0.5-1.5) % POC ABG HHb (Measured) (0.0-5.0) % ABG Methemoglobin (0.0-3.0) % Harpreet Test A-a O2 Difference mm/Hg Respiratory Index Hgb O2 Saturation (95.0-98.0) % Vent Mode Mechanical Rate FiO2 % Tidal Volume PEEP Sodium 132 (132-148) mmol/L Potassium 4.7 (3.6-5.2) mmol/L Chloride 98 (98-107) mmol/L Carbon Dioxide 19 L (22-30) mmol/L Anion Gap 20 (10-20) BUN 110 H* (9-20) mg/dL Creatinine 3.2 H (0.8-1.5) mg/dL Est GFR ( Amer) 24 Est GFR (Non-Af Amer) 20 POC Glucose (mg/dL) 177 H (65-110) mg/dL Random Glucose 196 H (75-110) mg/dL Calcium 5.2 L* (8.6-10.4) mg/dl Phosphorus 6.4 H (2.5-4.5) mg/dL Magnesium 2.3 (1.6-2.3) mg/dL Total Bilirubin 6.2 H (0.2-1.3) mg/dL AST 58 (17-59) U/L ALT 49 (21-72) U/L Alkaline Phosphatase 161 H (38-126) U/L Total Protein 5.4 L (6.3-8.3) g/dL Albumin 2.5 L (3.5-5.0) g/dL Globulin 2.8 (2.2-3.9) gm/dL Albumin/Globulin Ratio 0.9 L (1.0-2.1) 09/03/17 09/03/17 09/02/17 Range/Units 05:27 05:11 23:43 WBC (4.8-10.8) K/uL RBC (4.40-5.90) Mil/uL Hgb (12.0-18.0) g/dL Hct (35.0-51.0) % MCV (80.0-94.0) fL MCH (27.0-31.0) pg MCHC (33.0-37.0) g/dL RDW (11.5-14.5) % Plt Count (130-400) K/uL MPV (7.2-11.7) fL Neut % (Auto) (50.0-75.0) % Lymph % (Auto) (20.0-40.0) % [place] % (Auto) (0.0-10.0) % Eos % (Auto) (0.0-4.0) % Baso % (Auto) (0.0-2.0) % Neut # (Auto) (1.8-7.0) K/uL Lymph # (Auto) (1.0-4.3) K/uL [place] # (Auto) (0.0-0.8) K/uL Eos # (Auto) (0.0-0.7) K/uL Baso # (Auto) (0.0-0.2) K/uL Total Counted Neutrophils % (Manual) Band Neutrophils % Lymphocytes % (Manual) Reactive Lymphs % Monocytes % (Manual) Eosinophils % (Manual) Basophils % (Manual) Metamyelocytes % Myelocytes % Promyelocytes % Blast Cells % Plasma Cell % (Manual) Nucleated RBC % Hypersegmented Polys Smudge Cells Toxic Granulation Dohle Bodies Vonda Rods Platelet Estimate Plt Clumps, EDTA Large Platelets Giant Platelets RBC Morphology Polychromasia Hypochromasia (manual) Poikilocytosis (manual Basophilic Stippling Anisocytosis (manual) Microcytosis (manual) Macrocytosis (manual) Spherocytes Sickle Cells Target Cells Tear Drop Cells Ovalocytes Stomatocytes Helmet Cells [place] Bodies Sprague Cells Acanthocytes (Spur) Rouleaux Schistocytes PT (9.7-12.2) SECONDS INR Fibrin Degrad Products (NEGATIVE) Fibrin Degrad Prod, Qt (<10) ug/mL Puncture Site R rad pCO2 37 (35-45) mm/Hg pO2 113 H (80-100) mm/Hg HCO3 20.3 L (21-28) mmol/L ABG pH 7.33 L (7.35-7.45) ABG Total CO2 20.6 L (22-28) mmol/L ABG O2 Saturation 98.9 H (95-98) % ABG Base Excess -5.9 L (-2.0-3.0) mmol/L ABG Hemoglobin 10.7 L (11.7-17.4) g/dL ABG Carboxyhemoglobin 1.1 (0.5-1.5) % POC ABG HHb (Measured) 1.1 (0.0-5.0) % ABG Methemoglobin 0.8 (0.0-3.0) % Harpreet Test Pos A-a O2 Difference 554.0 mm/Hg Respiratory Index 4.9 Hgb O2 Saturation 96.9 (95.0-98.0) % Vent Mode Prvc Mechanical Rate 25 FiO2 100.0 % Tidal Volume 450 PEEP 6 Sodium (132-148) mmol/L Potassium (3.6-5.2) mmol/L Chloride (98-107) mmol/L Carbon Dioxide (22-30) mmol/L Anion Gap (10-20) BUN (9-20) mg/dL Creatinine (0.8-1.5) mg/dL Est GFR ( Amer) Est GFR (Non-Af Amer) POC Glucose (mg/dL) 224 H 193 H (65-110) mg/dL Random Glucose (75-110) mg/dL Calcium (8.6-10.4) mg/dl Phosphorus (2.5-4.5) mg/dL Magnesium (1.6-2.3) mg/dL Total Bilirubin (0.2-1.3) mg/dL AST (17-59) U/L ALT (21-72) U/L Alkaline Phosphatase (38-126) U/L Total Protein (6.3-8.3) g/dL Albumin (3.5-5.0) g/dL Globulin (2.2-3.9) gm/dL Albumin/Globulin Ratio (1.0-2.1) 09/02/17 09/02/17 09/02/17 Range/Units 17:38 16:39 16:39 WBC 0.5 L* (4.8-10.8) K/uL RBC 4.02 L (4.40-5.90) Mil/uL Hgb 11.7 L (12.0-18.0) g/dL Hct 33.7 L (35.0-51.0) % MCV 83.8 (80.0-94.0) fL MCH 29.1 (27.0-31.0) pg MCHC 34.7 (33.0-37.0) g/dL RDW 18.0 H (11.5-14.5) % Plt Count 17 L* (130-400) K/uL MPV 9.2 (7.2-11.7) fL Neut % (Auto) (50.0-75.0) % Lymph % (Auto) (20.0-40.0) % [place] % (Auto) (0.0-10.0) % Eos % (Auto) (0.0-4.0) % Baso % (Auto) (0.0-2.0) % Neut # (Auto) (1.8-7.0) K/uL Lymph # (Auto) (1.0-4.3) K/uL [place] # (Auto) (0.0-0.8) K/uL Eos # (Auto) (0.0-0.7) K/uL Baso # (Auto) (0.0-0.2) K/uL Total Counted Neutrophils % (Manual) Band Neutrophils % Lymphocytes % (Manual) Reactive Lymphs % Monocytes % (Manual) Eosinophils % (Manual) Basophils % (Manual) Metamyelocytes % Myelocytes % Promyelocytes % Blast Cells % Plasma Cell % (Manual) Nucleated RBC % Hypersegmented Polys Smudge Cells Toxic Granulation Dohle Bodies Vonda Rods Platelet Estimate Plt Clumps, EDTA Large Platelets Giant Platelets RBC Morphology Polychromasia Hypochromasia (manual) Poikilocytosis (manual Basophilic Stippling Anisocytosis (manual) Microcytosis (manual) Macrocytosis (manual) Spherocytes Sickle Cells Target Cells Tear Drop Cells Ovalocytes Stomatocytes Helmet Cells [place] Bodies Sprague Cells Acanthocytes (Spur) Rouleaux Schistocytes PT 15.5 H (9.7-12.2) SECONDS INR 1.4 Fibrin Degrad Products Positive H (NEGATIVE) Fibrin Degrad Prod, Qt >40 H (<10) ug/mL Puncture Site pCO2 (35-45) mm/Hg pO2 (80-100) mm/Hg HCO3 (21-28) mmol/L ABG pH (7.35-7.45) ABG Total CO2 (22-28) mmol/L ABG O2 Saturation (95-98) % ABG Base Excess (-2.0-3.0) mmol/L ABG Hemoglobin (11.7-17.4) g/dL ABG Carboxyhemoglobin (0.5-1.5) % POC ABG HHb (Measured) (0.0-5.0) % ABG Methemoglobin (0.0-3.0) % Harpreet Test A-a O2 Difference mm/Hg Respiratory Index Hgb O2 Saturation (95.0-98.0) % Vent Mode Mechanical Rate FiO2 % Tidal Volume PEEP Sodium (132-148) mmol/L Potassium (3.6-5.2) mmol/L Chloride (98-107) mmol/L Carbon Dioxide (22-30) mmol/L Anion Gap (10-20) BUN (9-20) mg/dL Creatinine (0.8-1.5) mg/dL Est GFR ( Amer) Est GFR (Non-Af Amer) POC Glucose (mg/dL) 123 H (65-110) mg/dL Random Glucose (75-110) mg/dL Calcium (8.6-10.4) mg/dl Phosphorus (2.5-4.5) mg/dL Magnesium (1.6-2.3) mg/dL Total Bilirubin (0.2-1.3) mg/dL AST (17-59) U/L ALT (21-72) U/L Alkaline Phosphatase (38-126) U/L Total Protein (6.3-8.3) g/dL Albumin (3.5-5.0) g/dL Globulin (2.2-3.9) gm/dL Albumin/Globulin Ratio (1.0-2.1) Laboratory Results - last 24 hr 09/02/17 09/02/17 09/02/17 16:39 16:39 17:38 WBC 0.5 L* RBC 4.02 L Hgb 11.7 L Hct 33.7 L MCV 83.8 MCH 29.1 MCHC 34.7 RDW 18.0 H Plt Count 17 L* MPV 9.2 Neut % (Auto) Lymph % (Auto) [place] % (Auto) Eos % (Auto) Baso % (Auto) Neut # (Auto) Lymph # (Auto) [place] # (Auto) Eos # (Auto) Baso # (Auto) Total Counted Neutrophils % (Manual) Band Neutrophils % Lymphocytes % (Manual) Reactive Lymphs % Monocytes % (Manual) Eosinophils % (Manual) Basophils % (Manual) Metamyelocytes % Myelocytes % Promyelocytes % Blast Cells % Plasma Cell % (Manual) Nucleated RBC % Hypersegmented Polys Smudge Cells Toxic Granulation Dohle Bodies Vonda Rods Platelet Estimate Plt Clumps, EDTA Large Platelets Giant Platelets RBC Morphology Polychromasia Hypochromasia (manual) Poikilocytosis (manual Basophilic Stippling Anisocytosis (manual) Microcytosis (manual) Macrocytosis (manual) Spherocytes Sickle Cells Target Cells Tear Drop Cells Ovalocytes Stomatocytes Helmet Cells [place] Bodies Sprague Cells Acanthocytes (Spur) Rouleaux Schistocytes PT 15.5 H INR 1.4 Fibrin Degrad Products Positive H Fibrin Degrad Prod, Qt >40 H Puncture Site pCO2 pO2 HCO3 ABG pH ABG Total CO2 ABG O2 Saturation ABG Base Excess ABG Hemoglobin ABG Carboxyhemoglobin POC ABG HHb (Measured) ABG Methemoglobin Harpreet Test A-a O2 Difference Respiratory Index Hgb O2 Saturation Vent Mode Mechanical Rate FiO2 Tidal Volume PEEP Sodium Potassium Chloride Carbon Dioxide Anion Gap BUN Creatinine Est GFR ( Amer) Est GFR (Non-Af Amer) POC Glucose (mg/dL) 123 H Random Glucose Calcium Phosphorus Magnesium Total Bilirubin AST ALT Alkaline Phosphatase Total Protein Albumin Globulin Albumin/Globulin Ratio 09/02/17 09/03/17 09/03/17 23:43 05:11 05:27 WBC RBC Hgb Hct MCV MCH MCHC RDW Plt Count MPV Neut % (Auto) Lymph % (Auto) [place] % (Auto) Eos % (Auto) Baso % (Auto) Neut # (Auto) Lymph # (Auto) [place] # (Auto) Eos # (Auto) Baso # (Auto) Total Counted Neutrophils % (Manual) Band Neutrophils % Lymphocytes % (Manual) Reactive Lymphs % Monocytes % (Manual) Eosinophils % (Manual) Basophils % (Manual) Metamyelocytes % Myelocytes % Promyelocytes % Blast Cells % Plasma Cell % (Manual) Nucleated RBC % Hypersegmented Polys Smudge Cells Toxic Granulation Dohle Bodies Vonda Rods Platelet Estimate Plt Clumps, EDTA Large Platelets Giant Platelets RBC Morphology Polychromasia Hypochromasia (manual) Poikilocytosis (manual Basophilic Stippling Anisocytosis (manual) Microcytosis (manual) Macrocytosis (manual) Spherocytes Sickle Cells Target Cells Tear Drop Cells Ovalocytes Stomatocytes Helmet Cells [place] Bodies Sprague Cells Acanthocytes (Spur) Rouleaux Schistocytes PT INR Fibrin Degrad Products Fibrin Degrad Prod, Qt Puncture Site R rad pCO2 37 pO2 113 H HCO3 20.3 L ABG pH 7.33 L ABG Total CO2 20.6 L ABG O2 Saturation 98.9 H ABG Base Excess -5.9 L ABG Hemoglobin 10.7 L ABG Carboxyhemoglobin 1.1 POC ABG HHb (Measured) 1.1 ABG Methemoglobin 0.8 Harpreet Test Pos A-a O2 Difference 554.0 Respiratory Index 4.9 Hgb O2 Saturation 96.9 Vent Mode Prvc Mechanical Rate 25 FiO2 100.0 Tidal Volume 450 PEEP 6 Sodium Potassium Chloride Carbon Dioxide Anion Gap BUN Creatinine Est GFR ( Amer) Est GFR (Non-Af Amer) POC Glucose (mg/dL) 193 H 224 H Random Glucose Calcium Phosphorus Magnesium Total Bilirubin AST ALT Alkaline Phosphatase Total Protein Albumin Globulin Albumin/Globulin Ratio 09/03/17 09/03/17 09/03/17 06:11 06:11 12:28 WBC 0.7 L* RBC 3.49 L Hgb 10.4 L Hct 29.6 L MCV 84.8 MCH 29.8 MCHC 35.1 RDW 18.0 H Plt Count 15 L* MPV 9.9 Neut % (Auto) 11.8 L Lymph % (Auto) 81.7 H [place] % (Auto) 6.3 Eos % (Auto) 0.2 Baso % (Auto) 0.0 Neut # (Auto) 0.1 L Lymph # (Auto) 0.5 L [place] # (Auto) 0.0 Eos # (Auto) 0.0 Baso # (Auto) 0.0 Total Counted Cancelled Neutrophils % (Manual) Cancelled Band Neutrophils % Cancelled Lymphocytes % (Manual) Cancelled Reactive Lymphs % Cancelled Monocytes % (Manual) Cancelled Eosinophils % (Manual) Cancelled Basophils % (Manual) Cancelled Metamyelocytes % Cancelled Myelocytes % Cancelled Promyelocytes % Cancelled Blast Cells % Cancelled Plasma Cell % (Manual) Cancelled Nucleated RBC % Cancelled Hypersegmented Polys Cancelled Smudge Cells Cancelled Toxic Granulation Cancelled Dohle Bodies Cancelled Vonda Rods Cancelled Platelet Estimate Cancelled Plt Clumps, EDTA Cancelled Large Platelets Cancelled Giant Platelets Cancelled RBC Morphology Cancelled Polychromasia Cancelled Hypochromasia (manual) Cancelled Poikilocytosis (manual Cancelled Basophilic Stippling Cancelled Anisocytosis (manual) Cancelled Microcytosis (manual) Cancelled Macrocytosis (manual) Cancelled Spherocytes Cancelled Sickle Cells Cancelled Target Cells Cancelled Tear Drop Cells Cancelled Ovalocytes Cancelled Stomatocytes Cancelled Helmet Cells Cancelled [place] Bodies Cancelled Sprague Cells Cancelled Acanthocytes (Spur) Cancelled Rouleaux Cancelled Schistocytes Cancelled PT INR Fibrin Degrad Products Fibrin Degrad Prod, Qt Puncture Site pCO2 pO2 HCO3 ABG pH ABG Total CO2 ABG O2 Saturation ABG Base Excess ABG Hemoglobin ABG Carboxyhemoglobin POC ABG HHb (Measured) ABG Methemoglobin Harpreet Test A-a O2 Difference Respiratory Index Hgb O2 Saturation Vent Mode Mechanical Rate FiO2 Tidal Volume PEEP Sodium 132 Potassium 4.7 Chloride 98 Carbon Dioxide 19 L Anion Gap 20 BUN 110 H* Creatinine 3.2 H Est GFR ( Amer) 24 Est GFR (Non-Af Amer) 20 POC Glucose (mg/dL) 177 H Random Glucose 196 H Calcium 5.2 L* Phosphorus 6.4 H Magnesium 2.3 Total Bilirubin 6.2 H AST 58 ALT 49 Alkaline Phosphatase 161 H Total Protein 5.4 L Albumin 2.5 L Globulin 2.8 Albumin/Globulin Ratio 0.9 L Fingerstick Blood Sugar Results: 119 Review of Systems - Review of Systems Systems not reviewed;Unavailable: Intubated Assessment/Plan - Assessment and Plan (Free Text) Assessment: 1. Acute hypoxic respiratory failure 2/2 Lg + PNA -bronch revealed limited secretions -Abx-Mepron 1500mg PO, Azithromycin 250mg IVPB Q24, merrem 500mg q8, micafungin 100mg q24 -Dr. Pace consult ID -Continue ventilation to keep spO2 >92 and pH b/w 7.35-7.45, -continue bronchodilators -IV steroids -peep decreased to 6 2. Septic shock -decrease IVF to 50ml/hr -titrate down phenylephrine -solu-cortef 50mg q8 3. Chronic systolic heart failure -f/u echo 4. HUSSAIN -urine output~12.5ml/hr, goal >.5ml/kg/hr -avoid nephrotoxic drugs -right femoral HD catheter -received HD 09/01 5. Anemia-anemia of chronic disease -fecal occult blood -iron profile -folate/b12 6. Neutropenia -febrile ON~102.1, ice packs, Tylenol, monitor -granix 480mg sc -neutropenic precaution 7. GI -resume nepro feeds at 15/hr, goal 40 8. thrombocytopenia -transfused 1U platelets 08/31, planning for 1U today -platelets today 15 -f/u pm cbc -FDP and coags, elevated FDP 9. Transaminitis -most likely 2/2 shock -monitor -avoid hepatotoxic drugs 10. Electrolyte disturbance -monitor and replete as needed -HD tomorrow -hypocalcemia 5.2, given 2,000mg of CaGluc 11. Skin -supplemental MVI/vitamin C + turn q2 hrs Ppx -pepcid 20mg IVP -SCD -Goals of care discussed with family case discussed w/ Dr. Navas - Date & Time Date: 09/03/17 Time: 19:02 <Tho Navas - Last Filed: 09/03/17 19:12> CCU Objective - Vital Signs / Intake & Output Vital Signs (Last 4 hours): Vital Signs Temp Pulse Pulse Resp BP BP Pulse Ox 09/03/17 19:01 91 H 26 H 97 09/03/17 19:00 98.2 F 91 H 28 H 99/52 L 96 09/03/17 18:45 98.3 F 92 H 32 H 99/55 L 09/03/17 18:30 98.2 F 91 H 31 H 99/52 L 09/03/17 18:05 98.3 F 94 H 23 91/48 L 93 L 09/03/17 18:00 97 H 27 H 91/46 L 91 L 09/03/17 17:50 82/44 L 09/03/17 17:35 83/45 L 09/03/17 17:31 98 H 26 H 83/45 L 92 L 09/03/17 17:20 98/57 L 09/03/17 17:15 100 H 30 H 98/57 L 91 L 09/03/17 17:05 82/46 L 09/03/17 17:00 101 H 32 H 82/44 L 91 L 09/03/17 16:50 101 H 26 H 83/47 L 83/47 L 92 L 09/03/17 16:49 105 H 28 H 76/43 L 92 L 09/03/17 16:46 103 H 26 H 76/45 L 92 L 09/03/17 16:35 102/56 L 09/03/17 16:30 103 H 28 H 102/56 L 87 L 09/03/17 16:20 84/47 L 09/03/17 16:16 103 H 27 H 92 L 09/03/17 16:05 100/58 L 09/03/17 16:00 99.6 F 101 H 31 H 84/47 L 92 L 09/03/17 15:50 107/65 09/03/17 15:35 110/62 09/03/17 15:30 106 H 29 H 92 L 09/03/17 15:20 114/61 Intake and Output (Last 8hrs): Intake & Output 09/03/17 09/03/17 09/03/17 06:59 14:59 22:59 Intake Total 597.8 625.6 417.6 Output Total 80 Balance 517.8 625.6 417.6 Weight 176 lb 9.444 oz Intake: IV 213 Intake, IV Amount 384.8 465.6 417.6 Right Distal Port 52.8 50.6 17.6 Internal Jugular Right Medial Port 112.0 100 250 Right Proximal Port 220 315 150 Oral 60 0 Blood Product 0 Apheresis Plts Acda Lr 0 Irr 2nd Unit [id number] Other 100 Output: Urine 80 Urethral (Benjamin) 80 - Medications Active Medications: Active Medications Generic Name Dose Route Start Last Admin Trade Name Freq PRN Reason Stop Dose Admin Acetaminophen 650 mg 08/30/17 20:45 09/03/17 18:16 Tylenol 650mg/20.3ml Solution Ud PO 650 mg Q8 PRN Administration Fever >100.4 F Atovaquone 1,500 mg 08/27/17 13:30 09/03/17 09:56 Mepron PO 1,500 mg DAILY RENAN Administration Protocol Famotidine 20 mg 08/30/17 10:00 09/03/17 09:57 Pepcid IVP 20 mg DAILY RENAN Administration Hydrocortisone Sodium Succinate 50 mg 08/31/17 14:00 09/03/17 15:00 Solu-Cortef IV 50 mg Q8 RENAN Administration Propofol 1,000 mg in 100 mls @ 2.218 mls/hr 08/27/17 12:38 09/03/17 04:00 Diprivan IV 15 mcg/kg/min .Q24H PRN 6.654 mls/hr TITRATE PER MD ORDER Administration Protocol 5 MCG/KG/MIN Phenylephrine HCl 30 mg/ 253 mls @ 20.23 mls/hr 08/28/17 12:30 09/03/17 04:45 Dextrose IV 80 mcg/min .[id number] PRN 40.48 mls/hr TITRATE PER MD ORDER Titration Protocol 40 MCG/MIN Azithromycin 250 mg/ Sodium 250 mls @ 250 mls/hr 09/01/17 17:00 09/03/17 17: 11 Chloride IVPB 250 mls/hr Q24H RENAN Administration Protocol Meropenem 500 mg/ Sodium 100 mls @ 100 mls/hr 09/01/17 06:00 09/03/17 15:00 Chloride IVPB 100 mls/hr Q8 RENAN Administration Protocol Micafungin Sodium 100 mg/ 100 mls @ 100 mls/hr 09/01/17 02:45 09/03/17 03:30 Sodium Chloride IV 100 mls/hr Q24H RENAN Administration Protocol Vasopressin 40 units/ Dextrose 40 mls @ 0.6 mls/hr 09/02/17 20:30 09/03/17 03 :00 IV 0 units/min .Q24H RENAN 0 mls/hr Protocol Titration 0.01 UNITS/MIN Vancomycin/Sodium Chloride 1 gm in 200 mls @ 133.333 mls/hr 09/03/17 18:00 19:03 Vancomycin 1 Gm/Ns 200 Ml IVPB 09/03/17 19:29 Not Given ONCE ONE Protocol Insulin Aspart 0 unit 08/27/17 18:00 09/03/17 18:34 Novolog SC Not Given Q6 RENAN Protocol Insulin Glargine 15 unit 08/30/17 10:00 09/03/17 09:53 Lantus SC 15 unit QAM RENAN Administration Lorazepam 1 mg 08/29/17 21:13 08/29/17 21:29 Ativan IVP 1 mg Q6H PRN Administration Anxiety Senna/Docusate Sodium 1 tab 08/28/17 10:00 09/03/17 09:52 Senokot S 50 Mg-8.6 Mg GT Not Given DAILY [facility] Vitamin B Complex/Vit C/Folic Acid 1 tab 09/01/17 08:00 09/03/17 08:26 Nephro-Chauncey PO 1 tab 0800 RENAN Administration - Patient Studies Lab Studies: Microbiology Studies 09/01/17 14:14 Mycobacterial Culture - Preliminary Other: Please Indicate 09/01/17 06:15 Blood Culture - Preliminary Blood-Thru [facility] NO GROWTH AFTER 48 HOURS 09/01/17 06:15 Blood Culture - Preliminary Blood-Thru [facility] NO GROWTH AFTER 48 HOURS Lab Studies 09/03/17 09/03/17 09/03/17 Range/Units 18:17 18:08 12:28 WBC (4.8-10.8) K/uL RBC (4.40-5.90) Mil/uL Hgb (12.0-18.0) g/dL Hct (35.0-51.0) % MCV (80.0-94.0) fL MCH (27.0-31.0) pg MCHC (33.0-37.0) g/dL RDW (11.5-14.5) % Plt Count (130-400) K/uL MPV (7.2-11.7) fL Neut % (Auto) (50.0-75.0) % Lymph % (Auto) (20.0-40.0) % [place] % (Auto) (0.0-10.0) % Eos % (Auto) (0.0-4.0) % Baso % (Auto) (0.0-2.0) % Neut # (Auto) (1.8-7.0) K/uL Lymph # (Auto) (1.0-4.3) K/uL [place] # (Auto) (0.0-0.8) K/uL Eos # (Auto) (0.0-0.7) K/uL Baso # (Auto) (0.0-0.2) K/uL Total Counted Neutrophils % (Manual) Band Neutrophils % Lymphocytes % (Manual) Reactive Lymphs % Monocytes % (Manual) Eosinophils % (Manual) Basophils % (Manual) Metamyelocytes % Myelocytes % Promyelocytes % Blast Cells % Plasma Cell % (Manual) Nucleated RBC % Hypersegmented Polys Smudge Cells Toxic Granulation Dohle Bodies Vonda Rods Platelet Estimate Plt Clumps, EDTA Large Platelets Giant Platelets RBC Morphology Polychromasia Hypochromasia (manual) Poikilocytosis (manual Basophilic Stippling Anisocytosis (manual) Microcytosis (manual) Macrocytosis (manual) Spherocytes Sickle Cells Target Cells Tear Drop Cells Ovalocytes Stomatocytes Helmet Cells [place] Bodies Sprague Cells Acanthocytes (Spur) Rouleaux Schistocytes G6PD RBC Count (7.0-20.5) U/g HGB Puncture Site pCO2 (35-45) mm/Hg pO2 (80-100) mm/Hg HCO3 (21-28) mmol/L ABG pH (7.35-7.45) ABG Total CO2 (22-28) mmol/L ABG O2 Saturation (95-98) % ABG Base Excess (-2.0-3.0) mmol/L ABG Hemoglobin (11.7-17.4) g/dL ABG Carboxyhemoglobin (0.5-1.5) % POC ABG HHb (Measured) (0.0-5.0) % ABG Methemoglobin (0.0-3.0) % Harpreet Test A-a O2 Difference mm/Hg Respiratory Index Hgb O2 Saturation (95.0-98.0) % Vent Mode Mechanical Rate FiO2 % Tidal Volume PEEP Sodium (132-148) mmol/L Potassium (3.6-5.2) mmol/L Chloride (98-107) mmol/L Carbon Dioxide (22-30) mmol/L Anion Gap (10-20) BUN (9-20) mg/dL Creatinine (0.8-1.5) mg/dL Est GFR ( Amer) Est GFR (Non-Af Amer) POC Glucose (mg/dL) 124 H 177 H (65-110) mg/dL Random Glucose (75-110) mg/dL Calcium (8.6-10.4) mg/dl Phosphorus (2.5-4.5) mg/dL Magnesium (1.6-2.3) mg/dL Total Bilirubin (0.2-1.3) mg/dL AST (17-59) U/L ALT (21-72) U/L Alkaline Phosphatase (38-126) U/L Total Protein (6.3-8.3) g/dL Albumin (3.5-5.0) g/dL Globulin (2.2-3.9) gm/dL Albumin/Globulin Ratio (1.0-2.1) Random Vancomycin < 5.0 ug/mL 09/03/17 09/03/17 09/03/17 Range/Units 06:11 06:11 05:27 WBC 0.7 L* (4.8-10.8) K/uL RBC 3.49 L (4.40-5.90) Mil/uL Hgb 10.4 L (12.0-18.0) g/dL Hct 29.6 L (35.0-51.0) % MCV 84.8 (80.0-94.0) fL MCH 29.8 (27.0-31.0) pg MCHC 35.1 (33.0-37.0) g/dL RDW 18.0 H (11.5-14.5) % Plt Count 15 L* (130-400) K/uL MPV 9.9 (7.2-11.7) fL Neut % (Auto) 11.8 L (50.0-75.0) % Lymph % (Auto) 81.7 H (20.0-40.0) % [place] % (Auto) 6.3 (0.0-10.0) % Eos % (Auto) 0.2 (0.0-4.0) % Baso % (Auto) 0.0 (0.0-2.0) % Neut # (Auto) 0.1 L (1.8-7.0) K/uL Lymph # (Auto) 0.5 L (1.0-4.3) K/uL [place] # (Auto) 0.0 (0.0-0.8) K/uL Eos # (Auto) 0.0 (0.0-0.7) K/uL Baso # (Auto) 0.0 (0.0-0.2) K/uL Total Counted Cancelled Neutrophils % (Manual) Cancelled Band Neutrophils % Cancelled Lymphocytes % (Manual) Cancelled Reactive Lymphs % Cancelled Monocytes % (Manual) Cancelled Eosinophils % (Manual) Cancelled Basophils % (Manual) Cancelled Metamyelocytes % Cancelled Myelocytes % Cancelled Promyelocytes % Cancelled Blast Cells % Cancelled Plasma Cell % (Manual) Cancelled Nucleated RBC % Cancelled Hypersegmented Polys Cancelled Smudge Cells Cancelled Toxic Granulation Cancelled Dohle Bodies Cancelled Vonda Rods Cancelled Platelet Estimate Cancelled Plt Clumps, EDTA Cancelled Large Platelets Cancelled Giant Platelets Cancelled RBC Morphology Cancelled Polychromasia Cancelled Hypochromasia (manual) Cancelled Poikilocytosis (manual Cancelled Basophilic Stippling Cancelled Anisocytosis (manual) Cancelled Microcytosis (manual) Cancelled Macrocytosis (manual) Cancelled Spherocytes Cancelled Sickle Cells Cancelled Target Cells Cancelled Tear Drop Cells Cancelled Ovalocytes Cancelled Stomatocytes Cancelled Helmet Cells Cancelled [place] Bodies Cancelled Sprague Cells Cancelled Acanthocytes (Spur) Cancelled Rouleaux Cancelled Schistocytes Cancelled G6PD RBC Count (7.0-20.5) U/g HGB Puncture Site R rad pCO2 37 (35-45) mm/Hg pO2 113 H (80-100) mm/Hg HCO3 20.3 L (21-28) mmol/L ABG pH 7.33 L (7.35-7.45) ABG Total CO2 20.6 L (22-28) mmol/L ABG O2 Saturation 98.9 H (95-98) % ABG Base Excess -5.9 L (-2.0-3.0) mmol/L ABG Hemoglobin 10.7 L (11.7-17.4) g/dL ABG Carboxyhemoglobin 1.1 (0.5-1.5) % POC ABG HHb (Measured) 1.1 (0.0-5.0) % ABG Methemoglobin 0.8 (0.0-3.0) % Harpreet Test Pos A-a O2 Difference 554.0 mm/Hg Respiratory Index 4.9 Hgb O2 Saturation 96.9 (95.0-98.0) % Vent Mode Prvc Mechanical Rate 25 FiO2 100.0 % Tidal Volume 450 PEEP 6 Sodium 132 (132-148) mmol/L Potassium 4.7 (3.6-5.2) mmol/L Chloride 98 (98-107) mmol/L Carbon Dioxide 19 L (22-30) mmol/L Anion Gap 20 (10-20) BUN 110 H* (9-20) mg/dL Creatinine 3.2 H (0.8-1.5) mg/dL Est GFR ( Amer) 24 Est GFR (Non-Af Amer) 20 POC Glucose (mg/dL) (65-110) mg/dL Random Glucose 196 H (75-110) mg/dL Calcium 5.2 L* (8.6-10.4) mg/dl Phosphorus 6.4 H (2.5-4.5) mg/dL Magnesium 2.3 (1.6-2.3) mg/dL Total Bilirubin 6.2 H (0.2-1.3) mg/dL AST 58 (17-59) U/L ALT 49 (21-72) U/L Alkaline Phosphatase 161 H (38-126) U/L Total Protein 5.4 L (6.3-8.3) g/dL Albumin 2.5 L (3.5-5.0) g/dL Globulin 2.8 (2.2-3.9) gm/dL Albumin/Globulin Ratio 0.9 L (1.0-2.1) Random Vancomycin ug/mL 09/03/17 09/02/17 09/02/17 Range/Units 05:11 23:43 06:24 WBC (4.8-10.8) K/uL RBC (4.40-5.90) Mil/uL Hgb (12.0-18.0) g/dL Hct (35.0-51.0) % MCV (80.0-94.0) fL MCH (27.0-31.0) pg MCHC (33.0-37.0) g/dL RDW (11.5-14.5) % Plt Count (130-400) K/uL MPV (7.2-11.7) fL Neut % (Auto) (50.0-75.0) % Lymph % (Auto) (20.0-40.0) % [place] % (Auto) (0.0-10.0) % Eos % (Auto) (0.0-4.0) % Baso % (Auto) (0.0-2.0) % Neut # (Auto) (1.8-7.0) K/uL Lymph # (Auto) (1.0-4.3) K/uL [place] # (Auto) (0.0-0.8) K/uL Eos # (Auto) (0.0-0.7) K/uL Baso # (Auto) (0.0-0.2) K/uL Total Counted Neutrophils % (Manual) Band Neutrophils % Lymphocytes % (Manual) Reactive Lymphs % Monocytes % (Manual) Eosinophils % (Manual) Basophils % (Manual) Metamyelocytes % Myelocytes % Promyelocytes % Blast Cells % Plasma Cell % (Manual) Nucleated RBC % Hypersegmented Polys Smudge Cells Toxic Granulation Dohle Bodies Vonda Rods Platelet Estimate Plt Clumps, EDTA Large Platelets Giant Platelets RBC Morphology Polychromasia Hypochromasia (manual) Poikilocytosis (manual Basophilic Stippling Anisocytosis (manual) Microcytosis (manual) Macrocytosis (manual) Spherocytes Sickle Cells Target Cells Tear Drop Cells Ovalocytes Stomatocytes Helmet Cells [place] Bodies Courtney Cells Acanthocytes (Spur) Rouleaux Schistocytes G6PD RBC Count 12.8 (7.0-20.5) U/g HGB Puncture Site pCO2 (35-45) mm/Hg pO2 (80-100) mm/Hg HCO3 (21-28) mmol/L ABG pH (7.35-7.45) ABG Total CO2 (22-28) mmol/L ABG O2 Saturation (95-98) % ABG Base Excess (-2.0-3.0) mmol/L ABG Hemoglobin (11.7-17.4) g/dL ABG Carboxyhemoglobin (0.5-1.5) % POC ABG HHb (Measured) (0.0-5.0) % ABG Methemoglobin (0.0-3.0) % Harpreet Test A-a O2 Difference mm/Hg Respiratory Index Hgb O2 Saturation (95.0-98.0) % Vent Mode Mechanical Rate FiO2 % Tidal Volume PEEP Sodium (132-148) mmol/L Potassium (3.6-5.2) mmol/L Chloride (98-107) mmol/L Carbon Dioxide (22-30) mmol/L Anion Gap (10-20) BUN (9-20) mg/dL Creatinine (0.8-1.5) mg/dL Est GFR ( Amer) Est GFR (Non-Af Amer) POC Glucose (mg/dL) 224 H 193 H (65-110) mg/dL Random Glucose (75-110) mg/dL Calcium (8.6-10.4) mg/dl Phosphorus (2.5-4.5) mg/dL Magnesium (1.6-2.3) mg/dL Total Bilirubin (0.2-1.3) mg/dL AST (17-59) U/L ALT (21-72) U/L Alkaline Phosphatase (38-126) U/L Total Protein (6.3-8.3) g/dL Albumin (3.5-5.0) g/dL Globulin (2.2-3.9) gm/dL Albumin/Globulin Ratio (1.0-2.1) Random Vancomycin ug/mL Laboratory Results - last 24 hr 09/02/17 09/02/17 09/03/17 06:24 23:43 05:11 WBC RBC Hgb Hct MCV MCH MCHC RDW Plt Count MPV Neut % (Auto) Lymph % (Auto) [place] % (Auto) Eos % (Auto) Baso % (Auto) Neut # (Auto) Lymph # (Auto) [place] # (Auto) Eos # (Auto) Baso # (Auto) Total Counted Neutrophils % (Manual) Band Neutrophils % Lymphocytes % (Manual) Reactive Lymphs % Monocytes % (Manual) Eosinophils % (Manual) Basophils % (Manual) Metamyelocytes % Myelocytes % Promyelocytes % Blast Cells % Plasma Cell % (Manual) Nucleated RBC % Hypersegmented Polys Smudge Cells Toxic Granulation Dohle Bodies Vonda Rods Platelet Estimate Plt Clumps, EDTA Large Platelets Giant Platelets RBC Morphology Polychromasia Hypochromasia (manual) Poikilocytosis (manual Basophilic Stippling Anisocytosis (manual) Microcytosis (manual) Macrocytosis (manual) Spherocytes Sickle Cells Target Cells Tear Drop Cells Ovalocytes Stomatocytes Helmet Cells [place] Bodies [place] Cells Acanthocytes (Spur) Rouleaux Schistocytes G6PD RBC Count 12.8 Puncture Site pCO2 pO2 HCO3 ABG pH ABG Total CO2 ABG O2 Saturation ABG Base Excess ABG Hemoglobin ABG Carboxyhemoglobin POC ABG HHb (Measured) ABG Methemoglobin Harpreet Test A-a O2 Difference Respiratory Index Hgb O2 Saturation Vent Mode Mechanical Rate FiO2 Tidal Volume PEEP Sodium Potassium Chloride Carbon Dioxide Anion Gap BUN Creatinine Est GFR ( Amer) Est GFR (Non-Af Amer) POC Glucose (mg/dL) 193 H 224 H Random Glucose Calcium Phosphorus Magnesium Total Bilirubin AST ALT Alkaline Phosphatase Total Protein Albumin Globulin Albumin/Globulin Ratio Random Vancomycin 09/03/17 09/03/17 09/03/17 05:27 06:11 06:11 WBC 0.7 L* RBC 3.49 L Hgb 10.4 L Hct 29.6 L MCV 84.8 MCH 29.8 MCHC 35.1 RDW 18.0 H Plt Count 15 L* MPV 9.9 Neut % (Auto) 11.8 L Lymph % (Auto) 81.7 H [place] % (Auto) 6.3 Eos % (Auto) 0.2 Baso % (Auto) 0.0 Neut # (Auto) 0.1 L Lymph # (Auto) 0.5 L [place] # (Auto) 0.0 Eos # (Auto) 0.0 Baso # (Auto) 0.0 Total Counted Cancelled Neutrophils % (Manual) Cancelled Band Neutrophils % Cancelled Lymphocytes % (Manual) Cancelled Reactive Lymphs % Cancelled Monocytes % (Manual) Cancelled Eosinophils % (Manual) Cancelled Basophils % (Manual) Cancelled Metamyelocytes % Cancelled Myelocytes % Cancelled Promyelocytes % Cancelled Blast Cells % Cancelled Plasma Cell % (Manual) Cancelled Nucleated RBC % Cancelled Hypersegmented Polys Cancelled Smudge Cells Cancelled Toxic Granulation Cancelled Dohle Bodies Cancelled Vonda Rods Cancelled Platelet Estimate Cancelled Plt Clumps, EDTA Cancelled Large Platelets Cancelled Giant Platelets Cancelled RBC Morphology Cancelled Polychromasia Cancelled Hypochromasia (manual) Cancelled Poikilocytosis (manual Cancelled Basophilic Stippling Cancelled Anisocytosis (manual) Cancelled Microcytosis (manual) Cancelled Macrocytosis (manual) Cancelled Spherocytes Cancelled Sickle Cells Cancelled Target Cells Cancelled Tear Drop Cells Cancelled Ovalocytes Cancelled Stomatocytes Cancelled Helmet Cells Cancelled [place] Bodies Cancelled Sprague Cells Cancelled Acanthocytes (Spur) Cancelled Rouleaux Cancelled Schistocytes Cancelled G6PD RBC Count Puncture Site R rad pCO2 37 pO2 113 H HCO3 20.3 L ABG pH 7.33 L ABG Total CO2 20.6 L ABG O2 Saturation 98.9 H ABG Base Excess -5.9 L ABG Hemoglobin 10.7 L ABG Carboxyhemoglobin 1.1 POC ABG HHb (Measured) 1.1 ABG Methemoglobin 0.8 Harpreet Test Pos A-a O2 Difference 554.0 Respiratory Index 4.9 Hgb O2 Saturation 96.9 Vent Mode Prvc Mechanical Rate 25 FiO2 100.0 Tidal Volume 450 PEEP 6 Sodium 132 Potassium 4.7 Chloride 98 Carbon Dioxide 19 L Anion Gap 20 BUN 110 H* Creatinine 3.2 H Est GFR ( Amer) 24 Est GFR (Non-Af Amer) 20 POC Glucose (mg/dL) Random Glucose 196 H Calcium 5.2 L* Phosphorus 6.4 H Magnesium 2.3 Total Bilirubin 6.2 H AST 58 ALT 49 Alkaline Phosphatase 161 H Total Protein 5.4 L Albumin 2.5 L Globulin 2.8 Albumin/Globulin Ratio 0.9 L Random Vancomycin 09/03/17 09/03/17 09/03/17 12:28 18:08 18:17 WBC RBC Hgb Hct MCV MCH MCHC RDW Plt Count MPV Neut % (Auto) Lymph % (Auto) [place] % (Auto) Eos % (Auto) Baso % (Auto) Neut # (Auto) Lymph # (Auto) [place] # (Auto) Eos # (Auto) Baso # (Auto) Total Counted Neutrophils % (Manual) Band Neutrophils % Lymphocytes % (Manual) Reactive Lymphs % Monocytes % (Manual) Eosinophils % (Manual) Basophils % (Manual) Metamyelocytes % Myelocytes % Promyelocytes % Blast Cells % Plasma Cell % (Manual) Nucleated RBC % Hypersegmented Polys Smudge Cells Toxic Granulation Dohle Bodies Vonda Rods Platelet Estimate Plt Clumps, EDTA Large Platelets Giant Platelets RBC Morphology Polychromasia Hypochromasia (manual) Poikilocytosis (manual Basophilic Stippling Anisocytosis (manual) Microcytosis (manual) Macrocytosis (manual) Spherocytes Sickle Cells Target Cells Tear Drop Cells Ovalocytes Stomatocytes Helmet Cells [place] Bodies Sprague Cells Acanthocytes (Spur) Rouleaux Schistocytes G6PD RBC Count Puncture Site pCO2 pO2 HCO3 ABG pH ABG Total CO2 ABG O2 Saturation ABG Base Excess ABG Hemoglobin ABG Carboxyhemoglobin POC ABG HHb (Measured) ABG Methemoglobin Haprreet Test A-a O2 Difference Respiratory Index Hgb O2 Saturation Vent Mode Mechanical Rate FiO2 Tidal Volume PEEP Sodium Potassium Chloride Carbon Dioxide Anion Gap BUN Creatinine Est GFR ( Amer) Est GFR (Non-Af Amer) POC Glucose (mg/dL) 177 H 124 H Random Glucose Calcium Phosphorus Magnesium Total Bilirubin AST ALT Alkaline Phosphatase Total Protein Albumin Globulin Albumin/Globulin Ratio Random Vancomycin < 5.0 Assessment/Plan (1) Acute respiratory failure with hypoxia Current Visit: Yes Status: Acute Priority: High (2) Septic shock Current Visit: Yes Status: Acute Priority: High (3) Pancytopenia Current Visit: Yes Status: Acute Priority: High (4) Neutropenia Current Visit: No Status: Acute Priority: High (5) Legionella pneumonia Current Visit: Yes Status: Acute (6) HUSSAIN (acute kidney injury) Current Visit: Yes Status: Acute (7) Tachycardia Current Visit: Yes Status: Acute (8) Metastatic malignant neoplasm to prostate Current Visit: No Status: Acute Attending/Attestation - Attestation I have personally seen and examined this patient.: Yes I have fully participated in the care of the patient.: Yes I have reviewed all pertinent clinical information: Yes Notes (Text): 09/03/17 19:12 Today: August The Patient was seen and examined at the bedside, Medical records reviewed, and management issues were discussed and formulated with the house staff. I have reviewed all the relevant clinical, laboratory, hemodynamic, radiographic data and medications Events reviewed Pain issues, skin care, head of the bed elevation, glycemic control were addressed. Agree with above resident's assessment and treatment plans of care as transcribed in Dr. Hsieh's note.
--- NOTE | 2017-09-03 14:35 | CP.PCM.PN ---
Subjective - Date & Time of Evaluation Date of Evaluation: 09/03/17 Time of Evaluation: 12:30 - Subjective Subjective: clinically same Objective - Vital Signs/Intake and Output Vital Signs (last 24 hours): Temp Pulse Resp BP Pulse Ox 101.8 F H 98 H 24 111/54 L 92 L 09/03/17 12:00 09/03/17 14:01 09/03/17 14:01 09/03/17 14:01 09/03/17 14:01 Intake and Output: 09/03/17 09/03/17 06:59 18:59 Intake Total 1189.0 365.6 Output Total 140 Balance 1049.0 365.6 - Medications Medications: Current Medications Acetaminophen (Tylenol 650mg/20.3ml Solution Ud) 650 mg PO Q8 PRN PRN Reason: Fever >100.4 F Last Admin: 09/03/17 08:24 Dose: 650 mg Atovaquone (Mepron) 1,500 mg PO DAILY [facility]NAN PRN Reason: Protocol Last Admin: 09/03/17 09:56 Dose: 1,500 mg Famotidine (Pepcid) 20 mg IVP DAILY [facility] Last Admin: 09/03/17 09:57 Dose: 20 mg Hydrocortisone Sodium Succinate (Solu-Cortef) 50 mg IV Q8 [facility] Last Admin: 09/03/17 06:22 Dose: 50 mg Propofol (Diprivan) 1,000 mg in 100 mls @ 2.218 mls/hr IV .Q24H PRN; Protocol; 5 MCG/KG/MIN PRN Reason: TITRATE PER MD ORDER Last Admin: 09/03/17 04:00 Dose: 15 mcg/kg/min, 6.654 mls/hr Phenylephrine HCl 30 mg/ (Dextrose) 253 mls @ 20.23 mls/hr IV .[id number] PRN; Protocol; 40 MCG/MIN PRN Reason: TITRATE PER MD ORDER Last Titration: 09/03/17 04:45 Dose: 80 mcg/min, 40.48 mls/hr Azithromycin 250 mg/ Sodium (Chloride) 250 mls @ 250 mls/hr IVPB Q24H RENAN PRN Reason: Protocol Last Admin: 09/02/17 18:20 Dose: 250 mls/hr Meropenem 500 mg/ Sodium (Chloride) 100 mls @ 100 mls/hr IVPB Q8 [facility]NAN PRN Reason: Protocol Last Admin: 09/03/17 05:07 Dose: 100 mls/hr Micafungin Sodium 100 mg/ (Sodium Chloride) 100 mls @ 100 mls/hr IV Q24H RENAN PRN Reason: Protocol Last Admin: 09/03/17 03:30 Dose: 100 mls/hr Vasopressin 40 units/ Dextrose 40 mls @ 0.6 mls/hr IV .Q24H RENAN; 0.01 UNITS/MIN PRN Reason: Protocol Last Titration: 09/03/17 03:00 Dose: 0 units/min, 0 mls/hr Insulin Aspart (Novolog) 0 unit SC Q6 RENAN PRN Reason: Protocol Last Admin: 09/03/17 05:17 Dose: 2 u Insulin Glargine (Lantus) 15 unit SC QAM [facility]N Last Admin: 09/03/17 09:53 Dose: 15 unit Lorazepam (Ativan) 1 mg IVP Q6H PRN PRN Reason: Anxiety Last Admin: 08/29/17 21:29 Dose: 1 mg Senna/Docusate Sodium (Senokot S 50 Mg-8.6 Mg) 1 tab GT DAILY [facility] Last Admin: 09/03/17 09:52 Dose: Not Given Vitamin B Complex/Vit C/Folic Acid (Nephro-Chauncey) 1 tab PO 0800 RENAN Last Admin: 09/03/17 08:26 Dose: 1 tab - Labs Labs: 09/03/17 06:11 09/03/17 06:11 PT 15.5 SECONDS (9.7-12.2) H 09/02/17 16:39 INR 1.4 09/02/17 16:39 APTT 36 SECONDS (21-34) H D 08/31/17 14:07 - Constitutional Appears: Well - Head Exam Head Exam: ATRAUMATIC, NORMAL INSPECTION, NORMOCEPHALIC - Eye Exam Eye Exam: EOMI, Normal appearance, PERRL Pupil Exam: NORMAL ACCOMODATION, PERRL - ENT Exam ENT Exam: Mucous Membranes Moist, Normal Exam - Neck Exam Neck Exam: Full ROM, Normal Inspection. absent: Lymphadenopathy - Respiratory Exam Respiratory Exam: Decreased Breath Sounds - Cardiovascular Exam Cardiovascular Exam: REGULAR RHYTHM, +S1, +S2 - GI/Abdominal Exam GI & Abdominal Exam: Soft, Diminished Bowel Sounds - Rectal Exam Rectal Exam: Deferred Assessment and Plan (1) Acute respiratory failure Status: Acute (2) Anemia Status: Acute (3) Chronic pain Status: Acute (4) Esophagitis Status: Acute (5) Gastritis Status: Acute (6) Pancytopenia Status: Acute (7) Abdominal pain Status: Acute (8) Chest discomfort Status: Acute (9) Constipation Status: Acute (10) Intractable abdominal pain Status: Acute (11) Metastatic malignant neoplasm to prostate Status: Acute (12) Neutropenia Status: Acute
--- NOTE | 2017-09-03 15:22 | RAD ---
Date of service: 09/03/2017 HISTORY: intubated COMPARISON: September 02, 2017. FINDINGS: LUNGS: Stable pulmonary infiltrates primarily affecting left upper lobe, left lower lobe and right lower lobe. PLEURA: No significant pleural effusion identified, no pneumothorax apparent. CARDIOVASCULAR: No significant interval change compared to the prior examination(s). OSSEOUS STRUCTURES: No significant abnormalities. VISUALIZED UPPER ABDOMEN: Normal. OTHER FINDINGS: Stable in satisfactory position of support apparatus including endotracheal tube and nasogastric tube. IMPRESSION: No significant interval change compared to the prior examination(s).
--- NOTE | 2017-09-03 15:23 | CP.PCM.PN ---
Subjective - Date & Time of Evaluation Date of Evaluation: 09/03/17 Time of Evaluation: 15:22 - Subjective Subjective: Nephrology Consultation Note: Assessment: critical oligoanuric Acute Kidney Injury (N17.9) likely ATN due to septic shock started HD 09/01/17 Neutropenic fever/pancytopenia with Left lung pneumonia with legionella s/p bronch 09/01/17 abnormal LFT with hyperbilirubinemia metastatic prostate CA on chemo/radiation acute respi failure s/p mechanical ventilation combined respi and metabolic acidosis Hypocalcemia, hyponatremia Plan HD today 3rd sessin with 3 Ca bath. maintain hemodynamic stable. hold ACEI/ARB due to HUSSAIN Monitor Input/Output, daily weights and renal function with basic metabolic panel agree with IV calcium supplements pt on stress dose of steroids. also getting Granix ID, heme/onc following Dose meds/antibiotics for reduced GFR<10. Avoid fleets enema/magnesium based laxatives. Avoid nephrotoxins/NSAIDs/ iodinated contrast (unless needed emergently) Glycemic control Further work up/management as per primary team Thanks for allowing me to participate in care of your patient. Will follow patient with you. Please call if any Qs. had d/w team and family Dr Cristi Pandey Office: [phone] Chief Complaint; unable to obtain reason for consult: HUSSAIN HPI: Pt is a 61 M with hx of metastatic prostate CA on chemo/radiation therapy admitted with neutropenic fever and pneumonia complicated by septic shock requiring IV pressors and respi failure, intubated transferred to ICU. renal consult for HUSSAIN evaluation no knwon OTC/herbal meds or NSAIDs No known recent iodinated contrast exposure. Noted obvious episodes of low BP ( 81/48). ROS: unable to obtain. Physical Examination: General Appearance: Comfortable, in no acute respiratory distress, ill appearing. febrile Vitals reviewed and noted as below Head; Atraumatic, normocephalic. ENT: orally intubated Neck; supple no lymphadenopathy, no thyromegaly or bruit Lungs: Normal respiratory rate/effort. Breath sounds bilateral equal clear anteriorly Heart: Normal rate. s1s2 normal. No rub or gallop. Extremities: 1+ edema. No varicose veins Neurological: Patient is sedated Skin: Warm and dry. Normal turgor. No rash. Palpitation: Normal elasticity for age Abdomen: Abdomen is soft. Bowel sounds +. There is no abdominal tenderness, no guarding/rigidity no organomegaly Psych: unable MSK: no joint tenderness or swelling. Digits and nails normal, no deformity : kidney or bladder not palpable. has montemayor catheter, no scrotal swelling access: rt femoral shiley Labs/imaging reviewed. Past medical history, past surgical history, family history, social history, allergy reviewed and noted as below Family hx: no hx of CKD. Rest non-contributory work up: renal sono: WNL UA no protein Objective - Vital Signs/Intake and Output Vital Signs (last 24 hours): Temp Pulse Resp BP Pulse Ox 101.8 F H 98 H 24 111/54 L 92 L 09/03/17 12:00 09/03/17 14:01 09/03/17 14:01 09/03/17 14:01 09/03/17 14:01 Intake and Output: 09/03/17 09/03/17 06:59 18:59 Intake Total 1189.0 365.6 Output Total 140 Balance 1049.0 365.6 - Medications Medications: Current Medications Acetaminophen (Tylenol 650mg/20.3ml Solution Ud) 650 mg PO Q8 PRN PRN Reason: Fever >100.4 F Last Admin: 09/03/17 08:24 Dose: 650 mg Atovaquone (Mepron) 1,500 mg PO DAILY [facility] PRN Reason: Protocol Last Admin: 09/03/17 09:56 Dose: 1,500 mg Famotidine (Pepcid) 20 mg IVP DAILY [facility] Last Admin: 09/03/17 09:57 Dose: 20 mg Hydrocortisone Sodium Succinate (Solu-Cortef) 50 mg IV Q8 [facility] Last Admin: 09/03/17 06:22 Dose: 50 mg Propofol (Diprivan) 1,000 mg in 100 mls @ 2.218 mls/hr IV .Q24H PRN; Protocol; 5 MCG/KG/MIN PRN Reason: TITRATE PER MD ORDER Last Admin: 09/03/17 04:00 Dose: 15 mcg/kg/min, 6.654 mls/hr Phenylephrine HCl 30 mg/ (Dextrose) 253 mls @ 20.23 mls/hr IV .[id number] PRN; Protocol; 40 MCG/MIN PRN Reason: TITRATE PER MD ORDER Last Titration: 09/03/17 04:45 Dose: 80 mcg/min, 40.48 mls/hr Azithromycin 250 mg/ Sodium (Chloride) 250 mls @ 250 mls/hr IVPB Q24H RENAN PRN Reason: Protocol Last Admin: 09/02/17 18:20 Dose: 250 mls/hr Meropenem 500 mg/ Sodium (Chloride) 100 mls @ 100 mls/hr IVPB Q8 RENAN PRN Reason: Protocol Last Admin: 09/03/17 05:07 Dose: 100 mls/hr Micafungin Sodium 100 mg/ (Sodium Chloride) 100 mls @ 100 mls/hr IV Q24H RENAN PRN Reason: Protocol Last Admin: 09/03/17 03:30 Dose: 100 mls/hr Vasopressin 40 units/ Dextrose 40 mls @ 0.6 mls/hr IV .Q24H RENAN; 0.01 UNITS/MIN PRN Reason: Protocol Last Titration: 09/03/17 03:00 Dose: 0 units/min, 0 mls/hr Insulin Aspart (Novolog) 0 unit SC Q6 RENAN PRN Reason: Protocol Last Admin: 09/03/17 05:17 Dose: 2 u Insulin Glargine (Lantus) 15 unit SC QAM RENAN Last Admin: 09/03/17 09:53 Dose: 15 unit Lorazepam (Ativan) 1 mg IVP Q6H PRN PRN Reason: Anxiety Last Admin: 08/29/17 21:29 Dose: 1 mg Senna/Docusate Sodium (Senokot S 50 Mg-8.6 Mg) 1 tab GT DAILY [facility] Last Admin: 09/03/17 09:52 Dose: Not Given Vitamin B Complex/Vit C/Folic Acid (Nephro-Chauncey) 1 tab PO 0800 RENAN Last Admin: 09/03/17 08:26 Dose: 1 tab - Labs Labs: 09/03/17 06:11 09/03/17 06:11 PT 15.5 SECONDS (9.7-12.2) H 09/02/17 16:39 INR 1.4 09/02/17 16:39 APTT 36 SECONDS (21-34) H D 08/31/17 14:07
--- NOTE | 2017-09-03 17:04 | CP.PCM.PN ---
Subjective - Date & Time of Evaluation Date of Evaluation: 08/31/17 Time of Evaluation: 10:00 - Subjective Subjective: Vented Objective - Vital Signs/Intake and Output Vital Signs (last 24 hours): Temp Pulse Resp BP Pulse Ox 99.6 F 103 H 27 H 83/47 L 92 L 09/03/17 16:00 09/03/17 16:16 09/03/17 16:16 09/03/17 16:50 09/03/17 16:16 Intake and Output: 09/03/17 09/03/17 06:59 18:59 Intake Total 1189.0 444.4 Output Total 140 Balance 1049.0 444.4 - Medications Medications: Current Medications Acetaminophen (Tylenol 650mg/20.3ml Solution Ud) 650 mg PO Q8 PRN PRN Reason: Fever >100.4 F Last Admin: 09/03/17 08:24 Dose: 650 mg Atovaquone (Mepron) 1,500 mg PO DAILY RENAN PRN Reason: Protocol Last Admin: 09/03/17 09:56 Dose: 1,500 mg Famotidine (Pepcid) 20 mg IVP DAILY [facility] Last Admin: 09/03/17 09:57 Dose: 20 mg Hydrocortisone Sodium Succinate (Solu-Cortef) 50 mg IV Q8 RENAN Last Admin: 09/03/17 06:22 Dose: 50 mg Propofol (Diprivan) 1,000 mg in 100 mls @ 2.218 mls/hr IV .Q24H PRN; Protocol; 5 MCG/KG/MIN PRN Reason: TITRATE PER MD ORDER Last Admin: 09/03/17 04:00 Dose: 15 mcg/kg/min, 6.654 mls/hr Phenylephrine HCl 30 mg/ (Dextrose) 253 mls @ 20.23 mls/hr IV .[id number] PRN; Protocol; 40 MCG/MIN PRN Reason: TITRATE PER MD ORDER Last Titration: 09/03/17 04:45 Dose: 80 mcg/min, 40.48 mls/hr Azithromycin 250 mg/ Sodium (Chloride) 250 mls @ 250 mls/hr IVPB Q24H RENAN PRN Reason: Protocol Last Admin: 09/02/17 18:20 Dose: 250 mls/hr Meropenem 500 mg/ Sodium (Chloride) 100 mls @ 100 mls/hr IVPB Q8 RENAN PRN Reason: Protocol Last Admin: 09/03/17 05:07 Dose: 100 mls/hr Micafungin Sodium 100 mg/ (Sodium Chloride) 100 mls @ 100 mls/hr IV Q24H RENAN PRN Reason: Protocol Last Admin: 09/03/17 03:30 Dose: 100 mls/hr Vasopressin 40 units/ Dextrose 40 mls @ 0.6 mls/hr IV .Q24H RENAN; 0.01 UNITS/MIN PRN Reason: Protocol Last Titration: 09/03/17 03:00 Dose: 0 units/min, 0 mls/hr Insulin Aspart (Novolog) 0 unit SC Q6 RENAN PRN Reason: Protocol Last Admin: 09/03/17 05:17 Dose: 2 u Insulin Glargine (Lantus) 15 unit SC QAM RENAN Last Admin: 09/03/17 09:53 Dose: 15 unit Lorazepam (Ativan) 1 mg IVP Q6H PRN PRN Reason: Anxiety Last Admin: 08/29/17 21:29 Dose: 1 mg Senna/Docusate Sodium (Senokot S 50 Mg-8.6 Mg) 1 tab GT DAILY RENAN Last Admin: 09/03/17 09:52 Dose: Not Given Vitamin B Complex/Vit C/Folic Acid (Nephro-Chauncey) 1 tab PO 0800 RENAN Last Admin: 09/03/17 08:26 Dose: 1 tab - Labs Labs: 09/03/17 06:11 09/03/17 06:11 PT 15.5 SECONDS (9.7-12.2) H 09/02/17 16:39 INR 1.4 09/02/17 16:39 APTT 36 SECONDS (21-34) H D 08/31/17 14:07 - Head Exam Head Exam: ATRAUMATIC - Eye Exam Eye Exam: Normal appearance - ENT Exam ENT Exam: Mucous Membranes Dry - Respiratory Exam Respiratory Exam: NORMAL BREATHING PATTERN - Cardiovascular Exam Cardiovascular Exam: +S1, +S2 - GI/Abdominal Exam GI & Abdominal Exam: Normal Bowel Sounds Assessment and Plan (1) Pancytopenia Assessment & Plan: multifactorial bone metastasis anemia of chronic disease, sepsis neutropenic precautions; growth factor support transfusion support PRN Status: Acute (2) Metastatic malignant neoplasm to prostate Assessment & Plan: stage IV diffuse bone mets Status: Acute
--- NOTE | 2017-09-03 17:07 | CP.PCM.PN ---
Subjective - Date & Time of Evaluation Date of Evaluation: 09/01/17 Time of Evaluation: 13:00 - Subjective Subjective: Vented Objective - Vital Signs/Intake and Output Vital Signs (last 24 hours): Temp Pulse Resp BP Pulse Ox 99.6 F 103 H 27 H 83/47 L 92 L 09/03/17 16:00 09/03/17 16:16 09/03/17 16:16 09/03/17 16:50 09/03/17 16:16 Intake and Output: 09/03/17 09/03/17 06:59 18:59 Intake Total 1189.0 444.4 Output Total 140 Balance 1049.0 444.4 - Medications Medications: Current Medications Acetaminophen (Tylenol 650mg/20.3ml Solution Ud) 650 mg PO Q8 PRN PRN Reason: Fever >100.4 F Last Admin: 09/03/17 08:24 Dose: 650 mg Atovaquone (Mepron) 1,500 mg PO DAILY RENAN PRN Reason: Protocol Last Admin: 09/03/17 09:56 Dose: 1,500 mg Famotidine (Pepcid) 20 mg IVP DAILY [facility] Last Admin: 09/03/17 09:57 Dose: 20 mg Hydrocortisone Sodium Succinate (Solu-Cortef) 50 mg IV Q8 RENAN Last Admin: 09/03/17 06:22 Dose: 50 mg Propofol (Diprivan) 1,000 mg in 100 mls @ 2.218 mls/hr IV .Q24H PRN; Protocol; 5 MCG/KG/MIN PRN Reason: TITRATE PER MD ORDER Last Admin: 09/03/17 04:00 Dose: 15 mcg/kg/min, 6.654 mls/hr Phenylephrine HCl 30 mg/ (Dextrose) 253 mls @ 20.23 mls/hr IV .[id number] PRN; Protocol; 40 MCG/MIN PRN Reason: TITRATE PER MD ORDER Last Titration: 09/03/17 04:45 Dose: 80 mcg/min, 40.48 mls/hr Azithromycin 250 mg/ Sodium (Chloride) 250 mls @ 250 mls/hr IVPB Q24H RENAN PRN Reason: Protocol Last Admin: 09/02/17 18:20 Dose: 250 mls/hr Meropenem 500 mg/ Sodium (Chloride) 100 mls @ 100 mls/hr IVPB Q8 RENAN PRN Reason: Protocol Last Admin: 09/03/17 05:07 Dose: 100 mls/hr Micafungin Sodium 100 mg/ (Sodium Chloride) 100 mls @ 100 mls/hr IV Q24H RENAN PRN Reason: Protocol Last Admin: 09/03/17 03:30 Dose: 100 mls/hr Vasopressin 40 units/ Dextrose 40 mls @ 0.6 mls/hr IV .Q24H RENAN; 0.01 UNITS/MIN PRN Reason: Protocol Last Titration: 09/03/17 03:00 Dose: 0 units/min, 0 mls/hr Vancomycin/Sodium Chloride (Vancomycin 1 Gm/Ns 200 Ml) 1 gm in 200 mls @ 133.333 mls/hr IVPB ONCE ONE PRN Reason: Protocol Stop: 09/03/17 19:29 Insulin Aspart (Novolog) 0 unit SC Q6 RENAN PRN Reason: Protocol Last Admin: 09/03/17 05:17 Dose: 2 u Insulin Glargine (Lantus) 15 unit SC QAM [facility] Last Admin: 09/03/17 09:53 Dose: 15 unit Lorazepam (Ativan) 1 mg IVP Q6H PRN PRN Reason: Anxiety Last Admin: 08/29/17 21:29 Dose: 1 mg Senna/Docusate Sodium (Senokot S 50 Mg-8.6 Mg) 1 tab GT DAILY [facility] Last Admin: 09/03/17 09:52 Dose: Not Given Vitamin B Complex/Vit C/Folic Acid (Nephro-Chauncey) 1 tab PO 0800 [facility] Last Admin: 09/03/17 08:26 Dose: 1 tab - Labs Labs: 09/03/17 06:11 09/03/17 06:11 PT 15.5 SECONDS (9.7-12.2) H 09/02/17 16:39 INR 1.4 09/02/17 16:39 APTT 36 SECONDS (21-34) H D 08/31/17 14:07 - Head Exam Head Exam: ATRAUMATIC - Eye Exam Eye Exam: Normal appearance - ENT Exam ENT Exam: Mucous Membranes Dry - Respiratory Exam Respiratory Exam: NORMAL BREATHING PATTERN - Cardiovascular Exam Cardiovascular Exam: +S1, +S2 - GI/Abdominal Exam GI & Abdominal Exam: Normal Bowel Sounds Assessment and Plan (1) Pancytopenia Assessment & Plan: multifactorial bone metastasis anemia of chronic disease, sepsis neutropenic precautions; growth factor support transfusion support PRN Status: Acute (2) Metastatic malignant neoplasm to prostate Assessment & Plan: stage IV diffuse brain mets Status: Acute
--- NOTE | 2017-09-03 17:08 | CP.PCM.PN ---
Subjective - Date & Time of Evaluation Date of Evaluation: 09/02/17 Time of Evaluation: 18:00 - Subjective Subjective: Vented Objective - Vital Signs/Intake and Output Vital Signs (last 24 hours): Temp Pulse Resp BP Pulse Ox 99.6 F 103 H 27 H 83/47 L 92 L 09/03/17 16:00 09/03/17 16:16 09/03/17 16:16 09/03/17 16:50 09/03/17 16:16 Intake and Output: 09/03/17 09/03/17 06:59 18:59 Intake Total 1189.0 444.4 Output Total 140 Balance 1049.0 444.4 - Medications Medications: Current Medications Acetaminophen (Tylenol 650mg/20.3ml Solution Ud) 650 mg PO Q8 PRN PRN Reason: Fever >100.4 F Last Admin: 09/03/17 08:24 Dose: 650 mg Atovaquone (Mepron) 1,500 mg PO DAILY RENAN PRN Reason: Protocol Last Admin: 09/03/17 09:56 Dose: 1,500 mg Famotidine (Pepcid) 20 mg IVP DAILY [facility] Last Admin: 09/03/17 09:57 Dose: 20 mg Hydrocortisone Sodium Succinate (Solu-Cortef) 50 mg IV Q8 RENAN Last Admin: 09/03/17 06:22 Dose: 50 mg Propofol (Diprivan) 1,000 mg in 100 mls @ 2.218 mls/hr IV .Q24H PRN; Protocol; 5 MCG/KG/MIN PRN Reason: TITRATE PER MD ORDER Last Admin: 09/03/17 04:00 Dose: 15 mcg/kg/min, 6.654 mls/hr Phenylephrine HCl 30 mg/ (Dextrose) 253 mls @ 20.23 mls/hr IV .[id number] PRN; Protocol; 40 MCG/MIN PRN Reason: TITRATE PER MD ORDER Last Titration: 09/03/17 04:45 Dose: 80 mcg/min, 40.48 mls/hr Azithromycin 250 mg/ Sodium (Chloride) 250 mls @ 250 mls/hr IVPB Q24H RENAN PRN Reason: Protocol Last Admin: 09/02/17 18:20 Dose: 250 mls/hr Meropenem 500 mg/ Sodium (Chloride) 100 mls @ 100 mls/hr IVPB Q8 RENAN PRN Reason: Protocol Last Admin: 09/03/17 05:07 Dose: 100 mls/hr Micafungin Sodium 100 mg/ (Sodium Chloride) 100 mls @ 100 mls/hr IV Q24H RENAN PRN Reason: Protocol Last Admin: 09/03/17 03:30 Dose: 100 mls/hr Vasopressin 40 units/ Dextrose 40 mls @ 0.6 mls/hr IV .Q24H RENAN; 0.01 UNITS/MIN PRN Reason: Protocol Last Titration: 09/03/17 03:00 Dose: 0 units/min, 0 mls/hr Vancomycin/Sodium Chloride (Vancomycin 1 Gm/Ns 200 Ml) 1 gm in 200 mls @ 133.333 mls/hr IVPB ONCE ONE PRN Reason: Protocol Stop: 09/03/17 19:29 Insulin Aspart (Novolog) 0 unit SC Q6 RENAN PRN Reason: Protocol Last Admin: 09/03/17 05:17 Dose: 2 u Insulin Glargine (Lantus) 15 unit SC QAM [facility] Last Admin: 09/03/17 09:53 Dose: 15 unit Lorazepam (Ativan) 1 mg IVP Q6H PRN PRN Reason: Anxiety Last Admin: 08/29/17 21:29 Dose: 1 mg Senna/Docusate Sodium (Senokot S 50 Mg-8.6 Mg) 1 tab GT DAILY [facility] Last Admin: 09/03/17 09:52 Dose: Not Given Vitamin B Complex/Vit C/Folic Acid (Nephro-Chauncey) 1 tab PO 0800 [facility] Last Admin: 09/03/17 08:26 Dose: 1 tab - Labs Labs: 09/03/17 06:11 09/03/17 06:11 PT 15.5 SECONDS (9.7-12.2) H 09/02/17 16:39 INR 1.4 09/02/17 16:39 APTT 36 SECONDS (21-34) H D 08/31/17 14:07 - Head Exam Head Exam: ATRAUMATIC - Eye Exam Eye Exam: Normal appearance - ENT Exam ENT Exam: Mucous Membranes Dry - Respiratory Exam Respiratory Exam: NORMAL BREATHING PATTERN - Cardiovascular Exam Cardiovascular Exam: +S1, +S2 - GI/Abdominal Exam GI & Abdominal Exam: Normal Bowel Sounds Assessment and Plan (1) Pancytopenia Assessment & Plan: multifactorial bone metastasis anemia of chronic disease, sepsis neutropenic precautions; growth factor support transfusion support PRN Status: Acute (2) Metastatic malignant neoplasm to prostate Assessment & Plan: stage IV diffuse bone mets Status: Acute
--- NOTE | 2017-09-03 17:09 | CP.PCM.PN ---
Subjective - Date & Time of Evaluation Date of Evaluation: 09/03/17 Time of Evaluation: 12:00 - Subjective Subjective: Vented, daughter at bedside Objective - Vital Signs/Intake and Output Vital Signs (last 24 hours): Temp Pulse Resp BP Pulse Ox 99.6 F 103 H 27 H 83/47 L 92 L 09/03/17 16:00 09/03/17 16:16 09/03/17 16:16 09/03/17 16:50 09/03/17 16:16 Intake and Output: 09/03/17 09/03/17 06:59 18:59 Intake Total 1189.0 444.4 Output Total 140 Balance 1049.0 444.4 - Medications Medications: Current Medications Acetaminophen (Tylenol 650mg/20.3ml Solution Ud) 650 mg PO Q8 PRN PRN Reason: Fever >100.4 F Last Admin: 09/03/17 08:24 Dose: 650 mg Atovaquone (Mepron) 1,500 mg PO DAILY RENAN PRN Reason: Protocol Last Admin: 09/03/17 09:56 Dose: 1,500 mg Famotidine (Pepcid) 20 mg IVP DAILY [facility] Last Admin: 09/03/17 09:57 Dose: 20 mg Hydrocortisone Sodium Succinate (Solu-Cortef) 50 mg IV Q8 [facility] Last Admin: 09/03/17 06:22 Dose: 50 mg Propofol (Diprivan) 1,000 mg in 100 mls @ 2.218 mls/hr IV .Q24H PRN; Protocol; 5 MCG/KG/MIN PRN Reason: TITRATE PER MD ORDER Last Admin: 09/03/17 04:00 Dose: 15 mcg/kg/min, 6.654 mls/hr Phenylephrine HCl 30 mg/ (Dextrose) 253 mls @ 20.23 mls/hr IV .[id number] PRN; Protocol; 40 MCG/MIN PRN Reason: TITRATE PER MD ORDER Last Titration: 09/03/17 04:45 Dose: 80 mcg/min, 40.48 mls/hr Azithromycin 250 mg/ Sodium (Chloride) 250 mls @ 250 mls/hr IVPB Q24H RENAN PRN Reason: Protocol Last Admin: 09/02/17 18:20 Dose: 250 mls/hr Meropenem 500 mg/ Sodium (Chloride) 100 mls @ 100 mls/hr IVPB Q8 RENAN PRN Reason: Protocol Last Admin: 09/03/17 05:07 Dose: 100 mls/hr Micafungin Sodium 100 mg/ (Sodium Chloride) 100 mls @ 100 mls/hr IV Q24H RENAN PRN Reason: Protocol Last Admin: 09/03/17 03:30 Dose: 100 mls/hr Vasopressin 40 units/ Dextrose 40 mls @ 0.6 mls/hr IV .Q24H RENAN; 0.01 UNITS/MIN PRN Reason: Protocol Last Titration: 09/03/17 03:00 Dose: 0 units/min, 0 mls/hr Vancomycin/Sodium Chloride (Vancomycin 1 Gm/Ns 200 Ml) 1 gm in 200 mls @ 133.333 mls/hr IVPB ONCE ONE PRN Reason: Protocol Stop: 09/03/17 19:29 Insulin Aspart (Novolog) 0 unit SC Q6 RENAN PRN Reason: Protocol Last Admin: 09/03/17 05:17 Dose: 2 u Insulin Glargine (Lantus) 15 unit SC QAM [facility] Last Admin: 09/03/17 09:53 Dose: 15 unit Lorazepam (Ativan) 1 mg IVP Q6H PRN PRN Reason: Anxiety Last Admin: 08/29/17 21:29 Dose: 1 mg Senna/Docusate Sodium (Senokot S 50 Mg-8.6 Mg) 1 tab GT DAILY [facility] Last Admin: 09/03/17 09:52 Dose: Not Given Vitamin B Complex/Vit C/Folic Acid (Nephro-Chauncey) 1 tab PO 0800 [facility] Last Admin: 09/03/17 08:26 Dose: 1 tab - Labs Labs: 09/03/17 06:11 09/03/17 06:11 PT 15.5 SECONDS (9.7-12.2) H 09/02/17 16:39 INR 1.4 09/02/17 16:39 APTT 36 SECONDS (21-34) H D 08/31/17 14:07 - Head Exam Head Exam: ATRAUMATIC - Eye Exam Eye Exam: Normal appearance - ENT Exam ENT Exam: Mucous Membranes Dry - Respiratory Exam Respiratory Exam: NORMAL BREATHING PATTERN - Cardiovascular Exam Cardiovascular Exam: +S1, +S2 Assessment and Plan (1) Pancytopenia Assessment & Plan: multifactorial bone metastasis anemia of chronic disease, sepsis neutropenic precautions; growth factor support transfusion support PRN Status: Acute (2) Metastatic malignant neoplasm to prostate Assessment & Plan: stage IV diffuse bone mets Status: Acute
[2017-09-03] MEDS: Azithromycin 250 MG in Sodium Chloride 0.9% 250 ML IVPB SCH (17:11)
[2017-09-03] MEDS ORDERED: Vancomycin 1 gm/NS 200 ml 1 GM/200 ML BAG IVPB ONE (18:00)
--- NOTE | 2017-09-03 19:31 | CP.PCM.PN ---
Subjective - Date & Time of Evaluation Date of Evaluation: 09/03/17 Time of Evaluation: 19:31 - Subjective Subjective: spiked temp 102 las night PATIENT ON VENTILATOR. HYPOTENSIVE ON VASOPRESSORS SEEN ON HEMODIALYSIS TODAY 09/03/17 S/P FOB NOTED 09/01/17 PATIENT REMAINS NEUTROPENIC /THROMBOCYTOPENIC. WBC 0.7 +FDP ?FDP >[address] MELGAR ,ON GRANIX CXR 09/03/17 +ET/NGT NO SIGNIFICANT CHANGE CXR 09/01/17- REVIEWED Worsening opacification left lung. Small right pulmonary nodules suspected as well ? Pulmonary metastasis are some consideration in view of metastatic prostatic CA. S/P RIGHT FEMORAL HEMODIALYSIS CATHETER PLACEMENT TODAY 09/01/17. DISCUSSED W STAFF/RESIDENTS. Objective - Vital Signs/Intake and Output Vital Signs (last 24 hours): Temp Pulse Resp BP Pulse Ox 98.2 F 91 H 26 H 99/52 L 97 09/03/17 19:00 09/03/17 19:01 09/03/17 19:01 09/03/17 19:00 09/03/17 19:01 Intake and Output: 09/03/17 09/04/17 18:59 06:59 Intake Total 1040.6 41.8 Output Total 170 10 Balance 870.6 31.8 - Medications Medications: Current Medications Acetaminophen (Tylenol 650mg/20.3ml Solution Ud) 650 mg PO Q8 PRN PRN Reason: Fever >100.4 F Last Admin: 09/03/17 18:16 Dose: 650 mg Atovaquone (Mepron) 1,500 mg PO DAILY RENAN PRN Reason: Protocol Last Admin: 09/03/17 09:56 Dose: 1,500 mg Famotidine (Pepcid) 20 mg IVP DAILY [facility] Last Admin: 09/03/17 09:57 Dose: 20 mg Hydrocortisone Sodium Succinate (Solu-Cortef) 50 mg IV Q8 [facility] Last Admin: 09/03/17 15:00 Dose: 50 mg Propofol (Diprivan) 1,000 mg in 100 mls @ 2.218 mls/hr IV .Q24H PRN; Protocol; 5 MCG/KG/MIN PRN Reason: TITRATE PER MD ORDER Last Admin: 09/03/17 04:00 Dose: 15 mcg/kg/min, 6.654 mls/hr Phenylephrine HCl 30 mg/ (Dextrose) 253 mls @ 20.23 mls/hr IV .[id number] PRN; Protocol; 40 MCG/MIN PRN Reason: TITRATE PER MD ORDER Last Titration: 09/03/17 04:45 Dose: 80 mcg/min, 40.48 mls/hr Azithromycin 250 mg/ Sodium (Chloride) 250 mls @ 250 mls/hr IVPB Q24H RENAN PRN Reason: Protocol Last Admin: 09/03/17 17:11 Dose: 250 mls/hr Meropenem 500 mg/ Sodium (Chloride) 100 mls @ 100 mls/hr IVPB Q8 RENAN PRN Reason: Protocol Last Admin: 09/03/17 15:00 Dose: 100 mls/hr Micafungin Sodium 100 mg/ (Sodium Chloride) 100 mls @ 100 mls/hr IV Q24H RENAN PRN Reason: Protocol Last Admin: 09/03/17 03:30 Dose: 100 mls/hr Vasopressin 40 units/ Dextrose 40 mls @ 0.6 mls/hr IV .Q24H RENAN; 0.01 UNITS/MIN PRN Reason: Protocol Last Titration: 09/03/17 03:00 Dose: 0 units/min, 0 mls/hr Insulin Aspart (Novolog) 0 unit SC Q6 RENAN PRN Reason: Protocol Last Admin: 09/03/17 18:34 Dose: Not Given Insulin Glargine (Lantus) 15 unit SC QAM [facility] Last Admin: 09/03/17 09:53 Dose: 15 unit Lorazepam (Ativan) 1 mg IVP Q6H PRN PRN Reason: Anxiety Last Admin: 08/29/17 21:29 Dose: 1 mg Senna/Docusate Sodium (Senokot S 50 Mg-8.6 Mg) 1 tab GT DAILY [facility] Last Admin: 09/03/17 09:52 Dose: Not Given Vitamin B Complex/Vit C/Folic Acid (Nephro-Chauncey) 1 tab PO 0800 [facility] Last Admin: 09/03/17 08:26 Dose: 1 tab - Labs Labs: 09/03/17 06:11 09/03/17 06:11 PT 15.5 SECONDS (9.7-12.2) H 09/02/17 16:39 INR 1.4 09/02/17 16:39 APTT 36 SECONDS (21-34) H D 08/31/17 14:07 - Constitutional Appears: No Acute Distress - Head Exam Head Exam: NORMAL INSPECTION Additional comments: ON VETILATOR, SEDATED - Eye Exam Eye Exam: PERRL - ENT Exam ENT Exam: Normal Oropharynx - Neck Exam Neck Exam: Normal Inspection - Respiratory Exam Respiratory Exam: Rhonchi (B/L LT>RT) - Cardiovascular Exam Cardiovascular Exam: Tachycardia, REGULAR RHYTHM, +S1, +S2 - Extremities Exam Extremities Exam: Pedal Edema. absent: Calf Tenderness - Neurological Exam Neurological Exam: Altered - Skin Skin Exam: Dry Assessment and Plan (1) Pancytopenia Status: Acute (2) Abdominal pain Status: Acute (3) Esophagitis Status: Acute (4) Metastatic malignant neoplasm to prostate Status: Acute - Assessment and Plan (Free Text) Assessment: ASSESSMENT RESPIRATORY FAILURE NEUTROPENIC FEVERS /MULTIORGAN FAILURE PNEUMONIA - LEGIONELLA ANTIGEN POSITIVE ( ? LEGIONELLA PNEUMOPHILLA ) S/P FOB 09/01/17 METASTATIC CA PROSTRATE. STAGE 1V HX OF ESOPHAGITIS VI S/P EGD ABNORMAL LIVER FUNCTION TESTS-SHOCK LIVER VS CHOLESTASIS VS LEGIONELLOSIS ACUTE RENAL FAILURE SEC SHOCK/HYPOTENSION ON HD ? EARLY DIC PLAN : ADD IV VANCOMYCIN 1GM IVPB POST HD TODAY IF VANC RANDOM <10.AND THEN 1GM POST EACH HD MWF X 5 DOSES. 09/03/17 . ON iv MERREM 500 MG IV Q 8HRLY. 08/26/17 .ON IV AZITHROMICIN 250MG IV PB [id number] ON IV MYCAFUNGIN 100MG IV [id number] 08/31/17. CONTINUE ATOVAQUONE 1500 MG OD DAILY. 08/27/17 (NO DOSAGE ADJUSTMENT IN RENALFAILURE ) PATIENT NOT A CANDIDATE FOR PENTAMADINE IN VIEW OF HYPOTENSION,RENAL FAILURE , THROMBOCYTOPENIA AND NEUROTOXICITY. CHECK GLUCOSE 6 PHOSPHATE LEVELS. ON IV STEROIDS ORDERED BY INTENSIVISTS.50 MG EVERY 8 HOURLY 08/31/17 NEUTROPENIC PRECAUTIONS. PULMONARY TOILET. F/U [employer],FUNGUS.PCP, VIRAL S/P FOB. F/U [employer] FOR LEGINELLA CULTURE. (SENT 08/27/[address] Luciano CARLTON ) PROGNOSIS GRAVE.
[2017-09-03] MEDS: Vasopressin 40 UNITS in Dextrose 5% In Water 38 ML IV SCH (20:44)
[2017-09-03] MEDS: Phenylephrine 30 MG in Dextrose 5% In Water 250 ML IV PRN (21:50)
[2017-09-04] MEDS: (Novolog) Insulin Aspart, Recombinant 100 u/ml 10 ml vial SC SCH ×5 (00:59→23:41)
[2017-09-04] MEDS: Micafungin 100 MG in Sodium Chloride 0.9% 100 ML IV SCH (02:57)
[2017-09-04] MEDS: Meropenem 500 MG in Sodium Chloride 0.9% 100 ML IVPB SCH ×3 (05:28→22:41)
--- NOTE | 2017-09-04 06:10 | CP.CCUPN ---
<Yuko Hsieh - Last Filed: 09/04/17 15:36> CCU Subjective - Physician Review Subjective (Free Text): 61 yo male with PMHx of metastatic prostate cancer to bones presented with abdominal pain. He was admitted to the ICU in hypoxic respiratory failure 2/2 left sided PNA, requiring intubation. Pt seen and examined at bedside this morning. Unable to obtain ROS. Afebrile overnight. HD(09/03). Platelets 25 s/p 1U plts 09/03. Urine o/p~10.4/ hr. 2 loose brown stools overnight. 09/04/17 06:04 09/04/17 06:17 09/04/17 07:15 CCU Objective - Vital Signs / Intake & Output Vital Signs (Last 4 hours): Vital Signs Temp Pulse Resp BP Pulse Ox 09/04/17 05:00 107 H 29 H 98 09/04/17 04:47 114/66 09/04/17 04:00 99.3 F 107 H 29 H 98 09/04/17 03:47 118/63 09/04/17 03:00 106 H 28 H 98 09/04/17 02:47 109/62 Intake and Output (Last 8hrs): Intake & Output 09/03/17 09/03/17 09/04/17 14:59 22:59 06:59 Intake Total 625.6 1076.8 328 Output Total 115 90 45 Balance 510.6 986.8 283 Intake: IV 40 3 Intake, IV Amount 465.6 666.8 200 Right Distal Port 50.6 16.8 Internal Jugular Right Medial Port 100 350 100 Right Proximal Port 315 300 100 Oral 60 0 Tube Feeding 75 125 Blood Product 295 Apheresis Plts Acda Lr 295 Irr 2nd Unit [id number] Other 100 Output: Urine 115 90 45 Urethral (Benjamin) 115 90 45 Other: # Bowel Movements 0 0 - Physical Exam Head: Positive for: Atraumatic, Normocephalic Pupils: Positive for: Sluggish Conjunctiva: Positive for: Injected (left eye injected and swollen) Mouth: Positive for: Moist Mucous Membranes Respiratory/Chest: Positive for: Decreased Breath Sounds (L>R) Cardiovascular: Positive for: Regular Rate and Rhythm. Negative for: Murmurs Abdomen: Positive for: Distention, Normal Bowel Sounds Upper Extremity: Positive for: Normal Inspection, Edema (edema developing). Negative for: Cyanosis Lower Extremity: Positive for: Normal Inspection, Edema (edema developing) Neurological: Negative for: GCS=15 Skin: Positive for: Normal Color, Hot Psychiatric: Negative for: Alert - Medications Active Medications: Active Medications Generic Name Dose Route Start Last Admin Trade Name Freq PRN Reason Stop Dose Admin Acetaminophen 650 mg 08/30/17 20:45 09/03/17 18:16 Tylenol 650mg/20.3ml Solution Ud PO 650 mg Q8 PRN Administration Fever >100.4 F Atovaquone 1,500 mg 08/27/17 13:30 09/03/17 09:56 Mepron PO 1,500 mg DAILY RENAN Administration Protocol Famotidine 20 mg 08/30/17 10:00 09/03/17 09:57 Pepcid IVP 20 mg DAILY RENAN Administration Hydrocortisone Sodium Succinate 50 mg 08/31/17 14:00 09/04/17 05:28 Solu-Cortef IV 50 mg Q8 RENAN Administration Propofol 1,000 mg in 100 mls @ 2.218 mls/hr 08/27/17 12:38 09/03/17 19:45 Diprivan IV 0 mcg/kg/min .Q24H PRN 0 mls/hr TITRATE PER MD ORDER Titration Protocol 5 MCG/KG/MIN Phenylephrine HCl 30 mg/ 253 mls @ 20.23 mls/hr 08/28/17 12:30 09/04/17 05:27 Dextrose IV 0 mcg/min .[id number] PRN 0 mls/hr TITRATE PER MD ORDER Titration Protocol 40 MCG/MIN Azithromycin 250 mg/ Sodium 250 mls @ 250 mls/hr 09/01/17 17:00 09/03/17 17: 11 Chloride IVPB 250 mls/hr Q24H RENAN Administration Protocol Meropenem 500 mg/ Sodium 100 mls @ 100 mls/hr 09/01/17 06:00 09/04/17 05:28 Chloride IVPB 100 mls/hr Q8 RENAN Administration Protocol Micafungin Sodium 100 mg/ 100 mls @ 100 mls/hr 09/01/17 02:45 09/04/17 02:57 Sodium Chloride IV 100 mls/hr Q24H RENAN Administration Protocol Vasopressin 40 units/ Dextrose 40 mls @ 0.6 mls/hr 09/02/17 20:30 09/03/17 20 :44 IV Not Given .Q24H RENAN Protocol 0.01 UNITS/MIN Insulin Aspart 0 unit 08/27/17 18:00 09/04/17 00:59 Novolog SC 1 u Q6 RENAN Administration Protocol Insulin Glargine 15 unit 08/30/17 10:00 09/03/17 09:53 Lantus SC 15 unit QAM RENAN Administration Lorazepam 1 mg 08/29/17 21:13 08/29/17 21:29 Ativan IVP 1 mg Q6H PRN Administration Anxiety Senna/Docusate Sodium 1 tab 08/28/17 10:00 09/03/17 09:52 Senokot S 50 Mg-8.6 Mg GT Not Given DAILY [facility] Vitamin B Complex/Vit C/Folic Acid 1 tab 09/01/17 08:00 09/03/17 08:26 Nephro-Chauncey PO 1 tab 0800 RENAN Administration - Patient Studies Lab Studies: Microbiology Studies 09/03/17 12:30 Gram Stain - Final Sputum 09/01/17 14:14 Mycobacterial Culture - Preliminary Other: Please Indicate 09/01/17 06:15 Blood Culture - Preliminary Blood-Thru Central Line NO GROWTH AFTER 48 HOURS 09/01/17 06:15 Blood Culture - Preliminary Blood-Thru Central Line NO GROWTH AFTER 48 HOURS Lab Studies 09/03/17 09/03/17 09/03/17 Range/Units 23:44 18:17 18:08 WBC (4.8-10.8) K/uL RBC (4.40-5.90) Mil/uL Hgb (12.0-18.0) g/dL Hct (35.0-51.0) % MCV (80.0-94.0) fL MCH (27.0-31.0) pg MCHC (33.0-37.0) g/dL RDW (11.5-14.5) % Plt Count (130-400) K/uL MPV (7.2-11.7) fL Neut % (Auto) (50.0-75.0) % Lymph % (Auto) (20.0-40.0) % [place] % (Auto) (0.0-10.0) % Eos % (Auto) (0.0-4.0) % Baso % (Auto) (0.0-2.0) % Neut # (Auto) (1.8-7.0) K/uL Lymph # (Auto) (1.0-4.3) K/uL [place] # (Auto) (0.0-0.8) K/uL Eos # (Auto) (0.0-0.7) K/uL Baso # (Auto) (0.0-0.2) K/uL Total Counted Neutrophils % (Manual) Band Neutrophils % Lymphocytes % (Manual) Reactive Lymphs % Monocytes % (Manual) Eosinophils % (Manual) Basophils % (Manual) Metamyelocytes % Myelocytes % Promyelocytes % Blast Cells % Plasma Cell % (Manual) Nucleated RBC % Hypersegmented Polys Smudge Cells Toxic Granulation Dohle Bodies Vonda Rods Platelet Estimate Plt Clumps, EDTA Large Platelets Giant Platelets RBC Morphology Polychromasia Hypochromasia (manual) Poikilocytosis (manual Basophilic Stippling Anisocytosis (manual) Microcytosis (manual) Macrocytosis (manual) Spherocytes Sickle Cells Target Cells Tear Drop Cells Ovalocytes Stomatocytes Helmet Cells Mac-[place] Bodies Courtney Cells Acanthocytes (Spur) Rouleaux Schistocytes G6PD RBC Count (7.0-20.5) U/g HGB Puncture Site pCO2 (35-45) mm/Hg pO2 (80-100) mm/Hg HCO3 (21-28) mmol/L ABG pH (7.35-7.45) ABG Total CO2 (22-28) mmol/L ABG O2 Saturation (95-98) % ABG Base Excess (-2.0-3.0) mmol/L ABG Hemoglobin (11.7-17.4) g/dL ABG Carboxyhemoglobin (0.5-1.5) % POC ABG HHb (Measured) (0.0-5.0) % ABG Methemoglobin (0.0-3.0) % Harpreet Test A-a O2 Difference mm/Hg Respiratory Index Hgb O2 Saturation (95.0-98.0) % Vent Mode Mechanical Rate FiO2 % Tidal Volume PEEP Sodium (132-148) mmol/L Potassium (3.6-5.2) mmol/L Chloride (98-107) mmol/L Carbon Dioxide (22-30) mmol/L Anion Gap (10-20) BUN (9-20) mg/dL Creatinine (0.8-1.5) mg/dL Est GFR ( Amer) Est GFR (Non-Af Amer) POC Glucose (mg/dL) 196 H 124 H (65-110) mg/dL Random Glucose (75-110) mg/dL Calcium (8.6-10.4) mg/dl Phosphorus (2.5-4.5) mg/dL Magnesium (1.6-2.3) mg/dL Total Bilirubin (0.2-1.3) mg/dL AST (17-59) U/L ALT (21-72) U/L Alkaline Phosphatase (38-126) U/L Total Protein (6.3-8.3) g/dL Albumin (3.5-5.0) g/dL Globulin (2.2-3.9) gm/dL Albumin/Globulin Ratio (1.0-2.1) Random Vancomycin < 5.0 ug/mL 09/03/17 09/03/17 09/03/17 Range/Units 12:28 06:11 06:11 WBC 0.7 L* (4.8-10.8) K/uL RBC 3.49 L (4.40-5.90) Mil/uL Hgb 10.4 L (12.0-18.0) g/dL Hct 29.6 L (35.0-51.0) % MCV 84.8 (80.0-94.0) fL MCH 29.8 (27.0-31.0) pg MCHC 35.1 (33.0-37.0) g/dL RDW 18.0 H (11.5-14.5) % Plt Count 15 L* (130-400) K/uL MPV 9.9 (7.2-11.7) fL Neut % (Auto) 11.8 L (50.0-75.0) % Lymph % (Auto) 81.7 H (20.0-40.0) % [place] % (Auto) 6.3 (0.0-10.0) % Eos % (Auto) 0.2 (0.0-4.0) % Baso % (Auto) 0.0 (0.0-2.0) % Neut # (Auto) 0.1 L (1.8-7.0) K/uL Lymph # (Auto) 0.5 L (1.0-4.3) K/uL [place] # (Auto) 0.0 (0.0-0.8) K/uL Eos # (Auto) 0.0 (0.0-0.7) K/uL Baso # (Auto) 0.0 (0.0-0.2) K/uL Total Counted Cancelled Neutrophils % (Manual) Cancelled Band Neutrophils % Cancelled Lymphocytes % (Manual) Cancelled Reactive Lymphs % Cancelled Monocytes % (Manual) Cancelled Eosinophils % (Manual) Cancelled Basophils % (Manual) Cancelled Metamyelocytes % Cancelled Myelocytes % Cancelled Promyelocytes % Cancelled Blast Cells % Cancelled Plasma Cell % (Manual) Cancelled Nucleated RBC % Cancelled Hypersegmented Polys Cancelled Smudge Cells Cancelled Toxic Granulation Cancelled Dohle Bodies Cancelled Vonda Rods Cancelled Platelet Estimate Cancelled Plt Clumps, EDTA Cancelled Large Platelets Cancelled Giant Platelets Cancelled RBC Morphology Cancelled Polychromasia Cancelled Hypochromasia (manual) Cancelled Poikilocytosis (manual Cancelled Basophilic Stippling Cancelled Anisocytosis (manual) Cancelled Microcytosis (manual) Cancelled Macrocytosis (manual) Cancelled Spherocytes Cancelled Sickle Cells Cancelled Target Cells Cancelled Tear Drop Cells Cancelled Ovalocytes Cancelled Stomatocytes Cancelled Helmet Cells Cancelled Mac-[place] Bodies Cancelled Courtney Cells Cancelled Acanthocytes (Spur) Cancelled Rouleaux Cancelled Schistocytes Cancelled G6PD RBC Count (7.0-20.5) U/g HGB Puncture Site pCO2 (35-45) mm/Hg pO2 (80-100) mm/Hg HCO3 (21-28) mmol/L ABG pH (7.35-7.45) ABG Total CO2 (22-28) mmol/L ABG O2 Saturation (95-98) % ABG Base Excess (-2.0-3.0) mmol/L ABG Hemoglobin (11.7-17.4) g/dL ABG Carboxyhemoglobin (0.5-1.5) % POC ABG HHb (Measured) (0.0-5.0) % ABG Methemoglobin (0.0-3.0) % Harpreet Test A-a O2 Difference mm/Hg Respiratory Index Hgb O2 Saturation (95.0-98.0) % Vent Mode Mechanical Rate FiO2 % Tidal Volume PEEP Sodium 132 (132-148) mmol/L Potassium 4.7 (3.6-5.2) mmol/L Chloride 98 (98-107) mmol/L Carbon Dioxide 19 L (22-30) mmol/L Anion Gap 20 (10-20) BUN 110 H* (9-20) mg/dL Creatinine 3.2 H (0.8-1.5) mg/dL Est GFR ( Amer) 24 Est GFR (Non-Af Amer) 20 POC Glucose (mg/dL) 177 H (65-110) mg/dL Random Glucose 196 H (75-110) mg/dL Calcium 5.2 L* (8.6-10.4) mg/dl Phosphorus 6.4 H (2.5-4.5) mg/dL Magnesium 2.3 (1.6-2.3) mg/dL Total Bilirubin 6.2 H (0.2-1.3) mg/dL AST 58 (17-59) U/L ALT 49 (21-72) U/L Alkaline Phosphatase 161 H (38-126) U/L Total Protein 5.4 L (6.3-8.3) g/dL Albumin 2.5 L (3.5-5.0) g/dL Globulin 2.8 (2.2-3.9) gm/dL Albumin/Globulin Ratio 0.9 L (1.0-2.1) Random Vancomycin ug/mL 09/03/17 09/02/17 Range/Units 05:27 06:24 WBC (4.8-10.8) K/uL RBC (4.40-5.90) Mil/uL Hgb (12.0-18.0) g/dL Hct (35.0-51.0) % MCV (80.0-94.0) fL MCH (27.0-31.0) pg MCHC (33.0-37.0) g/dL RDW (11.5-14.5) % Plt Count (130-400) K/uL MPV (7.2-11.7) fL Neut % (Auto) (50.0-75.0) % Lymph % (Auto) (20.0-40.0) % [place] % (Auto) (0.0-10.0) % Eos % (Auto) (0.0-4.0) % Baso % (Auto) (0.0-2.0) % Neut # (Auto) (1.8-7.0) K/uL Lymph # (Auto) (1.0-4.3) K/uL [place] # (Auto) (0.0-0.8) K/uL Eos # (Auto) (0.0-0.7) K/uL Baso # (Auto) (0.0-0.2) K/uL Total Counted Neutrophils % (Manual) Band Neutrophils % Lymphocytes % (Manual) Reactive Lymphs % Monocytes % (Manual) Eosinophils % (Manual) Basophils % (Manual) Metamyelocytes % Myelocytes % Promyelocytes % Blast Cells % Plasma Cell % (Manual) Nucleated RBC % Hypersegmented Polys Smudge Cells Toxic Granulation Dohle Bodies Vonda Rods Platelet Estimate Plt Clumps, EDTA Large Platelets Giant Platelets RBC Morphology Polychromasia Hypochromasia (manual) Poikilocytosis (manual Basophilic Stippling Anisocytosis (manual) Microcytosis (manual) Macrocytosis (manual) Spherocytes Sickle Cells Target Cells Tear Drop Cells Ovalocytes Stomatocytes Helmet Cells Mac-[place] Bodies Courtney Cells Acanthocytes (Spur) Rouleaux Schistocytes G6PD RBC Count 12.8 (7.0-20.5) U/g HGB Puncture Site R rad pCO2 37 (35-45) mm/Hg pO2 113 H (80-100) mm/Hg HCO3 20.3 L (21-28) mmol/L ABG pH 7.33 L (7.35-7.45) ABG Total CO2 20.6 L (22-28) mmol/L ABG O2 Saturation 98.9 H (95-98) % ABG Base Excess -5.9 L (-2.0-3.0) mmol/L ABG Hemoglobin 10.7 L (11.7-17.4) g/dL ABG Carboxyhemoglobin 1.1 (0.5-1.5) % POC ABG HHb (Measured) 1.1 (0.0-5.0) % ABG Methemoglobin 0.8 (0.0-3.0) % Harpreet Test Pos A-a O2 Difference 554.0 mm/Hg Respiratory Index 4.9 Hgb O2 Saturation 96.9 (95.0-98.0) % Vent Mode Prvc Mechanical Rate 25 FiO2 100.0 % Tidal Volume 450 PEEP 6 Sodium (132-148) mmol/L Potassium (3.6-5.2) mmol/L Chloride (98-107) mmol/L Carbon Dioxide (22-30) mmol/L Anion Gap (10-20) BUN (9-20) mg/dL Creatinine (0.8-1.5) mg/dL Est GFR ( Amer) Est GFR (Non-Af Amer) POC Glucose (mg/dL) (65-110) mg/dL Random Glucose (75-110) mg/dL Calcium (8.6-10.4) mg/dl Phosphorus (2.5-4.5) mg/dL Magnesium (1.6-2.3) mg/dL Total Bilirubin (0.2-1.3) mg/dL AST (17-59) U/L ALT (21-72) U/L Alkaline Phosphatase (38-126) U/L Total Protein (6.3-8.3) g/dL Albumin (3.5-5.0) g/dL Globulin (2.2-3.9) gm/dL Albumin/Globulin Ratio (1.0-2.1) Random Vancomycin ug/mL Laboratory Results - last 24 hr 09/02/17 09/03/17 09/03/17 06:24 05:27 06:11 WBC 0.7 L* RBC 3.49 L Hgb 10.4 L Hct 29.6 L MCV 84.8 MCH 29.8 MCHC 35.1 RDW 18.0 H Plt Count 15 L* MPV 9.9 Neut % (Auto) 11.8 L Lymph % (Auto) 81.7 H [place] % (Auto) 6.3 Eos % (Auto) 0.2 Baso % (Auto) 0.0 Neut # (Auto) 0.1 L Lymph # (Auto) 0.5 L [place] # (Auto) 0.0 Eos # (Auto) 0.0 Baso # (Auto) 0.0 Total Counted Cancelled Neutrophils % (Manual) Cancelled Band Neutrophils % Cancelled Lymphocytes % (Manual) Cancelled Reactive Lymphs % Cancelled Monocytes % (Manual) Cancelled Eosinophils % (Manual) Cancelled Basophils % (Manual) Cancelled Metamyelocytes % Cancelled Myelocytes % Cancelled Promyelocytes % Cancelled Blast Cells % Cancelled Plasma Cell % (Manual) Cancelled Nucleated RBC % Cancelled Hypersegmented Polys Cancelled Smudge Cells Cancelled Toxic Granulation Cancelled Dohle Bodies Cancelled Vonda Rods Cancelled Platelet Estimate Cancelled Plt Clumps, EDTA Cancelled Large Platelets Cancelled Giant Platelets Cancelled RBC Morphology Cancelled Polychromasia Cancelled Hypochromasia (manual) Cancelled Poikilocytosis (manual Cancelled Basophilic Stippling Cancelled Anisocytosis (manual) Cancelled Microcytosis (manual) Cancelled Macrocytosis (manual) Cancelled Spherocytes Cancelled Sickle Cells Cancelled Target Cells Cancelled Tear Drop Cells Cancelled Ovalocytes Cancelled Stomatocytes Cancelled Helmet Cells Cancelled Mac-[place] Bodies Cancelled Jordan Cells Cancelled Acanthocytes (Spur) Cancelled Rouleaux Cancelled Schistocytes Cancelled G6PD RBC Count 12.8 Puncture Site R rad pCO2 37 pO2 113 H HCO3 20.3 L ABG pH 7.33 L ABG Total CO2 20.6 L ABG O2 Saturation 98.9 H ABG Base Excess -5.9 L ABG Hemoglobin 10.7 L ABG Carboxyhemoglobin 1.1 POC ABG HHb (Measured) 1.1 ABG Methemoglobin 0.8 Harpreet Test Pos A-a O2 Difference 554.0 Respiratory Index 4.9 Hgb O2 Saturation 96.9 Vent Mode Prvc Mechanical Rate 25 FiO2 100.0 Tidal Volume 450 PEEP 6 Sodium Potassium Chloride Carbon Dioxide Anion Gap BUN Creatinine Est GFR ( Amer) Est GFR (Non-Af Amer) POC Glucose (mg/dL) Random Glucose Calcium Phosphorus Magnesium Total Bilirubin AST ALT Alkaline Phosphatase Total Protein Albumin Globulin Albumin/Globulin Ratio Random Vancomycin 09/03/17 09/03/17 09/03/17 06:11 12:28 18:08 WBC RBC Hgb Hct MCV MCH MCHC RDW Plt Count MPV Neut % (Auto) Lymph % (Auto) [place] % (Auto) Eos % (Auto) Baso % (Auto) Neut # (Auto) Lymph # (Auto) [place] # (Auto) Eos # (Auto) Baso # (Auto) Total Counted Neutrophils % (Manual) Band Neutrophils % Lymphocytes % (Manual) Reactive Lymphs % Monocytes % (Manual) Eosinophils % (Manual) Basophils % (Manual) Metamyelocytes % Myelocytes % Promyelocytes % Blast Cells % Plasma Cell % (Manual) Nucleated RBC % Hypersegmented Polys Smudge Cells Toxic Granulation Dohle Bodies Vonda Rods Platelet Estimate Plt Clumps, EDTA Large Platelets Giant Platelets RBC Morphology Polychromasia Hypochromasia (manual) Poikilocytosis (manual Basophilic Stippling Anisocytosis (manual) Microcytosis (manual) Macrocytosis (manual) Spherocytes Sickle Cells Target Cells Tear Drop Cells Ovalocytes Stomatocytes Helmet Cells Mac-[place] Bodies Jordan Cells Acanthocytes (Spur) Rouleaux Schistocytes G6PD RBC Count Puncture Site pCO2 pO2 HCO3 ABG pH ABG Total CO2 ABG O2 Saturation ABG Base Excess ABG Hemoglobin ABG Carboxyhemoglobin POC ABG HHb (Measured) ABG Methemoglobin Harpreet Test A-a O2 Difference Respiratory Index Hgb O2 Saturation Vent Mode Mechanical Rate FiO2 Tidal Volume PEEP Sodium 132 Potassium 4.7 Chloride 98 Carbon Dioxide 19 L Anion Gap 20 BUN 110 H* Creatinine 3.2 H Est GFR ( Amer) 24 Est GFR (Non-Af Amer) 20 POC Glucose (mg/dL) 177 H 124 H Random Glucose 196 H Calcium 5.2 L* Phosphorus 6.4 H Magnesium 2.3 Total Bilirubin 6.2 H AST 58 ALT 49 Alkaline Phosphatase 161 H Total Protein 5.4 L Albumin 2.5 L Globulin 2.8 Albumin/Globulin Ratio 0.9 L Random Vancomycin 09/03/17 09/03/17 18:17 23:44 WBC RBC Hgb Hct MCV MCH MCHC RDW Plt Count MPV Neut % (Auto) Lymph % (Auto) [place] % (Auto) Eos % (Auto) Baso % (Auto) Neut # (Auto) Lymph # (Auto) [place] # (Auto) Eos # (Auto) Baso # (Auto) Total Counted Neutrophils % (Manual) Band Neutrophils % Lymphocytes % (Manual) Reactive Lymphs % Monocytes % (Manual) Eosinophils % (Manual) Basophils % (Manual) Metamyelocytes % Myelocytes % Promyelocytes % Blast Cells % Plasma Cell % (Manual) Nucleated RBC % Hypersegmented Polys Smudge Cells Toxic Granulation Dohle Bodies Vonda Rods Platelet Estimate Plt Clumps, EDTA Large Platelets Giant Platelets RBC Morphology Polychromasia Hypochromasia (manual) Poikilocytosis (manual Basophilic Stippling Anisocytosis (manual) Microcytosis (manual) Macrocytosis (manual) Spherocytes Sickle Cells Target Cells Tear Drop Cells Ovalocytes Stomatocytes Helmet Cells Mac-[place] Bodies Jordan Cells Acanthocytes (Spur) Rouleaux Schistocytes G6PD RBC Count Puncture Site pCO2 pO2 HCO3 ABG pH ABG Total CO2 ABG O2 Saturation ABG Base Excess ABG Hemoglobin ABG Carboxyhemoglobin POC ABG HHb (Measured) ABG Methemoglobin Harpreet Test A-a O2 Difference Respiratory Index Hgb O2 Saturation Vent Mode Mechanical Rate FiO2 Tidal Volume PEEP Sodium Potassium Chloride Carbon Dioxide Anion Gap BUN Creatinine Est GFR ( Amer) Est GFR (Non-Af Amer) POC Glucose (mg/dL) 196 H Random Glucose Calcium Phosphorus Magnesium Total Bilirubin AST ALT Alkaline Phosphatase Total Protein Albumin Globulin Albumin/Globulin Ratio Random Vancomycin < 5.0 Fingerstick Blood Sugar Results: 119 Review of Systems - Review of Systems Systems not reviewed;Unavailable: Intubated Assessment/Plan - Assessment and Plan (Free Text) Assessment: 1. Acute hypoxic respiratory failure 2/2 Lg + PNA -bronch revealed limited secretions -Abx-Mepron 1500mg PO, Azithromycin 250mg IVPB Q24, merrem 500mg q8, micafungin 100mg q24 -random vanc <5, initiate vanc 1g s/p HD -Dr. Pace consult ID -Continue ventilation to keep spO2 >92 and pH b/w 7.35-7.45, -continue bronchodilators -IV steroids -peep decreased to 6 2. Septic shock -decrease IVF to 50ml/hr -titrate down phenylephrine -solu-cortef 50mg q8 3. Chronic systolic heart failure -f/u echo 4. HUSSAIN -urine output~10.4ml/hr, goal >.5ml/kg/hr -avoid nephrotoxic drugs -right femoral HD catheter -received HD 09/01, 09/03 5. Anemia-anemia of chronic disease -fecal occult blood -iron profile -folate/b12 6. Neutropenia -afebrile overnight, mobitor and tx w/ tylenol -granix 480mg sc -neutropenic precaution 7. GI -resume nepro feeds at 15/hr, goal 40 -loose brown stools noted per nursing, c. diff ag ordered 8. thrombocytopenia -1U platelets 09/03 -platelets today 25 -FDP and coags, elevated FDP 9. Transaminitis -most likely 2/2 shock -monitor -avoid hepatotoxic drugs 10. Electrolyte disturbance -monitor and replete as needed -HD tomorrow -hypocalcemia 5.4, given 2,000mg of CaGluc 11. Skin -supplemental MVI/vitamin C + turn q2 hrs Ppx -pepcid 20mg IVP -SCD -Goals of care discussed with family <PavonIlia - Last Filed: 09/04/17 16:35> CCU Objective - Vital Signs / Intake & Output Vital Signs (Last 4 hours): Vital Signs Temp 09/04/17 12:40 100.4 F H Intake and Output (Last 8hrs): Intake & Output 09/04/17 09/04/17 09/04/17 06:59 14:59 22:59 Intake Total 543 200 25 Output Total 115 15 Balance 428 185 25 Weight 177 lb 7.554 oz Intake: IV 3 Intake, IV Amount 340 Right Medial Port 200 Right Proximal Port 140 Tube Feeding 200 200 25 Output: Urine 115 15 Urethral (Benjamin) 115 15 Other: # Bowel Movements 1 0 - Medications Active Medications: Active Medications Generic Name Dose Route Start Last Admin Trade Name Freq PRN Reason Stop Dose Admin Acetaminophen 650 mg 08/30/17 20:45 09/04/17 12:40 Tylenol 650mg/20.3ml Solution Ud PO 650 mg Q8 PRN Administration Fever >100.4 F Atovaquone 1,500 mg 08/27/17 13:30 09/04/17 09:57 Mepron PO 1,500 mg DAILY RENAN Administration Protocol Calcitriol 1 mcg 09/04/17 10:00 09/04/17 09:56 Rocaltrol PO 1 mcg DAILY RENAN Administration Calcium Acetate 667 mg 09/04/17 12:00 09/04/17 12:40 Phoslo GT 667 mg TIDCC RENAN Administration Famotidine 20 mg 09/05/17 10:00 Pepcid PO DAILY RENAN Hydrocortisone Sodium Succinate 100 mg 09/04/17 09:00 09/04/17 09:55 Solu-Cortef IV 100 mg Q8H RENAN Administration Propofol 1,000 mg in 100 mls @ 2.218 mls/hr 08/27/17 12:38 07/12/18 19:45 Diprivan IV 0 mcg/kg/min .Q24H PRN 0 mls/hr TITRATE PER MD ORDER Titration Protocol 5 MCG/KG/MIN Azithromycin 250 mg/ Sodium 250 mls @ 250 mls/hr 09/01/17 17:00 09/03/17 17: 11 Chloride IVPB 250 mls/hr Q24H RENAN Administration Protocol Meropenem 500 mg/ Sodium 100 mls @ 100 mls/hr 09/01/17 06:00 09/04/17 13:30 Chloride IVPB 100 mls/hr Q8 RENAN Administration Protocol Micafungin Sodium 100 mg/ 100 mls @ 100 mls/hr 09/01/17 02:45 09/04/17 02:57 Sodium Chloride IV 100 mls/hr Q24H RENAN Administration Protocol Vasopressin 40 units/ Dextrose 40 mls @ 0.6 mls/hr 09/02/17 20:30 09/03/17 20 :44 IV Not Given .Q24H RENAN Protocol 0.01 UNITS/MIN Insulin Aspart 0 unit 08/27/17 18:00 09/04/17 12:40 Novolog SC 2 u Q6 RENAN Administration Protocol Insulin Glargine 15 unit 08/30/17 10:00 09/04/17 09:54 Lantus SC 15 unit QAM RENAN Administration Lorazepam 1 mg 08/29/17 21:13 08/29/17 21:29 Ativan IVP 1 mg Q6H PRN Administration Anxiety Ofloxacin 0 ml 09/04/17 10:00 09/04/17 13:30 Ocuflox Ophth 0.3% OS 1 drop TID RENAN Administration Senna/Docusate Sodium 1 tab 08/28/17 10:00 09/04/17 09:55 Senokot S 50 Mg-8.6 Mg GT 1 tab DAILY RENAN Administration Vitamin B Complex/Vit C/Folic Acid 1 tab 09/01/17 08:00 09/04/17 08:16 Nephro-Chauncey PO 1 tab 0800 RENAN Administration - Patient Studies Lab Studies: Microbiology Studies 09/03/17 13:05 Blood Culture - Preliminary Blood NO GROWTH AFTER 24 HOURS 09/03/17 12:30 Blood Culture - Preliminary Blood NO GROWTH AFTER 24 HOURS 09/03/17 13:25 Urine Culture - Final Urine No Growth (<1,000 CFU/ML) 09/03/17 12:30 Gram Stain - Final Sputum Sputum Culture - Preliminary No growth. 09/01/17 06:15 Blood Culture - Preliminary Blood-Thru Central Line NO GROWTH AFTER 3 DAYS 09/01/17 06:15 Blood Culture - Preliminary Blood-Thru Central Line NO GROWTH AFTER 3 DAYS 09/01/17 14:14 Mycobacterial Culture - Preliminary Other: Please Indicate Lab Studies 09/04/17 09/04/17 09/04/17 Range/Units Unknown 11:46 06:32 WBC (4.8-10.8) K/uL RBC (4.40-5.90) Mil/uL Hgb (12.0-18.0) g/dL Hct (35.0-51.0) % MCV (80.0-94.0) fL MCH (27.0-31.0) pg MCHC (33.0-37.0) g/dL RDW (11.5-14.5) % Plt Count (130-400) K/uL MPV (7.2-11.7) fL Neut % (Auto) (50.0-75.0) % Lymph % (Auto) (20.0-40.0) % [place] % (Auto) (0.0-10.0) % Eos % (Auto) (0.0-4.0) % Baso % (Auto) (0.0-2.0) % Neut # (Auto) (1.8-7.0) K/uL Lymph # (Auto) (1.0-4.3) K/uL [place] # (Auto) (0.0-0.8) K/uL Eos # (Auto) (0.0-0.7) K/uL Baso # (Auto) (0.0-0.2) K/uL Total Counted Neutrophils % (Manual) Band Neutrophils % Lymphocytes % (Manual) Reactive Lymphs % Monocytes % (Manual) Eosinophils % (Manual) Basophils % (Manual) Metamyelocytes % Myelocytes % Promyelocytes % Blast Cells % Plasma Cell % (Manual) Nucleated RBC % Hypersegmented Polys Smudge Cells Toxic Granulation Dohle Bodies Vonda Rods Platelet Estimate Plt Clumps, EDTA Large Platelets Giant Platelets RBC Morphology Polychromasia Hypochromasia (manual) Poikilocytosis (manual Basophilic Stippling Anisocytosis (manual) Microcytosis (manual) Macrocytosis (manual) Spherocytes Sickle Cells Target Cells Tear Drop Cells Ovalocytes Stomatocytes Helmet Cells Mac-[place] Bodies Courtney Cells Acanthocytes (Spur) Rouleaux Schistocytes G6PD RBC Count (7.0-20.5) U/g HGB Fibrinogen 821 H (200-400) mg/dL Puncture Site pCO2 (35-45) mm/Hg pO2 (80-100) mm/Hg HCO3 (21-28) mmol/L ABG pH (7.35-7.45) ABG Total CO2 (22-28) mmol/L ABG O2 Saturation (95-98) % ABG Base Excess (-2.0-3.0) mmol/L ABG Hemoglobin (11.7-17.4) g/dL ABG Carboxyhemoglobin (0.5-1.5) % POC ABG HHb (Measured) (0.0-5.0) % ABG Methemoglobin (0.0-3.0) % Harpreet Test A-a O2 Difference mm/Hg Respiratory Index Hgb O2 Saturation (95.0-98.0) % Vent Mode Mechanical Rate FiO2 % Tidal Volume PEEP Sodium (132-148) mmol/L Potassium (3.6-5.2) mmol/L Chloride (98-107) mmol/L Carbon Dioxide (22-30) mmol/L Anion Gap (10-20) BUN (9-20) mg/dL Creatinine (0.8-1.5) mg/dL Est GFR ( Amer) Est GFR (Non-Af Amer) POC Glucose (mg/dL) 206 H (65-110) mg/dL Random Glucose (75-110) mg/dL Calcium (8.6-10.4) mg/dl Phosphorus (2.5-4.5) mg/dL Magnesium (1.6-2.3) mg/dL Total Bilirubin (0.2-1.3) mg/dL AST (17-59) U/L ALT (21-72) U/L Alkaline Phosphatase (38-126) U/L Total Protein (6.3-8.3) g/dL Albumin (3.5-5.0) g/dL Globulin (2.2-3.9) gm/dL Albumin/Globulin Ratio (1.0-2.1) Random Vancomycin ug/mL C. difficile Ag & Toxin Negative (NEGATIVE) 09/04/17 09/04/17 09/04/17 Range/Units 06:32 06:32 05:54 WBC 0.4 L* (4.8-10.8) K/uL RBC 3.43 L (4.40-5.90) Mil/uL Hgb 9.9 L (12.0-18.0) g/dL Hct 29.1 L (35.0-51.0) % MCV 84.9 (80.0-94.0) fL MCH 29.0 (27.0-31.0) pg MCHC 34.2 (33.0-37.0) g/dL RDW 18.3 H (11.5-14.5) % Plt Count 25 L* D (130-400) K/uL MPV 9.0 (7.2-11.7) fL Neut % (Auto) 4.9 L (50.0-75.0) % Lymph % (Auto) 89.7 H (20.0-40.0) % [place] % (Auto) 5.3 (0.0-10.0) % Eos % (Auto) 0.1 (0.0-4.0) % Baso % (Auto) 0.0 (0.0-2.0) % Neut # (Auto) 0.4 L (1.8-7.0) K/uL Lymph # (Auto) 0.0 L (1.0-4.3) K/uL [place] # (Auto) 0.0 (0.0-0.8) K/uL Eos # (Auto) 0.0 (0.0-0.7) K/uL Baso # (Auto) 0.0 (0.0-0.2) K/uL Total Counted Cancelled Neutrophils % (Manual) Cancelled Band Neutrophils % Cancelled Lymphocytes % (Manual) Cancelled Reactive Lymphs % Cancelled Monocytes % (Manual) Cancelled Eosinophils % (Manual) Cancelled Basophils % (Manual) Cancelled Metamyelocytes % Cancelled Myelocytes % Cancelled Promyelocytes % Cancelled Blast Cells % Cancelled Plasma Cell % (Manual) Cancelled Nucleated RBC % Cancelled Hypersegmented Polys Cancelled Smudge Cells Cancelled Toxic Granulation Cancelled Dohle Bodies Cancelled Vonda Rods Cancelled Platelet Estimate Cancelled Plt Clumps, EDTA Cancelled Large Platelets Cancelled Giant Platelets Cancelled RBC Morphology Cancelled Polychromasia Cancelled Hypochromasia (manual) Cancelled Poikilocytosis (manual Cancelled Basophilic Stippling Cancelled Anisocytosis (manual) Cancelled Microcytosis (manual) Cancelled Macrocytosis (manual) Cancelled Spherocytes Cancelled Sickle Cells Cancelled Target Cells Cancelled Tear Drop Cells Cancelled Ovalocytes Cancelled Stomatocytes Cancelled Helmet Cells Cancelled Mac-[place] Bodies Cancelled Jordan Cells Cancelled Acanthocytes (Spur) Cancelled Rouleaux Cancelled Schistocytes Cancelled G6PD RBC Count (7.0-20.5) U/g HGB Fibrinogen (200-400) mg/dL Puncture Site pCO2 (35-45) mm/Hg pO2 (80-100) mm/Hg HCO3 (21-28) mmol/L ABG pH (7.35-7.45) ABG Total CO2 (22-28) mmol/L ABG O2 Saturation (95-98) % ABG Base Excess (-2.0-3.0) mmol/L ABG Hemoglobin (11.7-17.4) g/dL ABG Carboxyhemoglobin (0.5-1.5) % POC ABG HHb (Measured) (0.0-5.0) % ABG Methemoglobin (0.0-3.0) % Harpreet Test A-a O2 Difference mm/Hg Respiratory Index Hgb O2 Saturation (95.0-98.0) % Vent Mode Mechanical Rate FiO2 % Tidal Volume PEEP Sodium 134 (132-148) mmol/L Potassium 4.2 (3.6-5.2) mmol/L Chloride 97 L (98-107) mmol/L Carbon Dioxide 22 (22-30) mmol/L Anion Gap 19 (10-20) BUN 92 H (9-20) mg/dL Creatinine 2.8 H (0.8-1.5) mg/dL Est GFR ( Amer) 28 Est GFR (Non-Af Amer) 23 POC Glucose (mg/dL) 262 H (65-110) mg/dL Random Glucose 221 H (75-110) mg/dL Calcium 5.4 L* (8.6-10.4) mg/dl Phosphorus 6.0 H (2.5-4.5) mg/dL Magnesium 2.1 (1.6-2.3) mg/dL Total Bilirubin 4.3 H (0.2-1.3) mg/dL AST 45 (17-59) U/L ALT 47 (21-72) U/L Alkaline Phosphatase 185 H (38-126) U/L Total Protein 5.3 L (6.3-8.3) g/dL Albumin 2.5 L (3.5-5.0) g/dL Globulin 2.8 (2.2-3.9) gm/dL Albumin/Globulin Ratio 0.9 L (1.0-2.1) Random Vancomycin ug/mL C. difficile Ag & Toxin (NEGATIVE) 09/04/17 09/03/17 09/03/17 Range/Units 05:15 23:44 18:17 WBC (4.8-10.8) K/uL RBC (4.40-5.90) Mil/uL Hgb (12.0-18.0) g/dL Hct (35.0-51.0) % MCV (80.0-94.0) fL MCH (27.0-31.0) pg MCHC (33.0-37.0) g/dL RDW (11.5-14.5) % Plt Count (130-400) K/uL MPV (7.2-11.7) fL Neut % (Auto) (50.0-75.0) % Lymph % (Auto) (20.0-40.0) % [place] % (Auto) (0.0-10.0) % Eos % (Auto) (0.0-4.0) % Baso % (Auto) (0.0-2.0) % Neut # (Auto) (1.8-7.0) K/uL Lymph # (Auto) (1.0-4.3) K/uL [place] # (Auto) (0.0-0.8) K/uL Eos # (Auto) (0.0-0.7) K/uL Baso # (Auto) (0.0-0.2) K/uL Total Counted Neutrophils % (Manual) Band Neutrophils % Lymphocytes % (Manual) Reactive Lymphs % Monocytes % (Manual) Eosinophils % (Manual) Basophils % (Manual) Metamyelocytes % Myelocytes % Promyelocytes % Blast Cells % Plasma Cell % (Manual) Nucleated RBC % Hypersegmented Polys Smudge Cells Toxic Granulation Dohle Bodies Vonda Rods Platelet Estimate Plt Clumps, EDTA Large Platelets Giant Platelets RBC Morphology Polychromasia Hypochromasia (manual) Poikilocytosis (manual Basophilic Stippling Anisocytosis (manual) Microcytosis (manual) Macrocytosis (manual) Spherocytes Sickle Cells Target Cells Tear Drop Cells Ovalocytes Stomatocytes Helmet Cells Mac-[place] Bodies Jordan Cells Acanthocytes (Spur) Rouleaux Schistocytes G6PD RBC Count (7.0-20.5) U/g HGB Fibrinogen (200-400) mg/dL Puncture Site Rr pCO2 37 (35-45) mm/Hg pO2 106 H (80-100) mm/Hg HCO3 22.7 (21-28) mmol/L ABG pH 7.38 (7.35-7.45) ABG Total CO2 23.0 (22-28) mmol/L ABG O2 Saturation 99.0 H (95-98) % ABG Base Excess -2.9 L (-2.0-3.0) mmol/L ABG Hemoglobin 9.9 L (11.7-17.4) g/dL ABG Carboxyhemoglobin 1.5 (0.5-1.5) % POC ABG HHb (Measured) 1.0 (0.0-5.0) % ABG Methemoglobin 1.1 (0.0-3.0) % Harpreet Test Pos A-a O2 Difference 418.0 mm/Hg Respiratory Index 3.9 Hgb O2 Saturation 96.5 (95.0-98.0) % Vent Mode Prvc Mechanical Rate 20 FiO2 80.0 % Tidal Volume 450 PEEP 6 Sodium (132-148) mmol/L Potassium (3.6-5.2) mmol/L Chloride (98-107) mmol/L Carbon Dioxide (22-30) mmol/L Anion Gap (10-20) BUN (9-20) mg/dL Creatinine (0.8-1.5) mg/dL Est GFR ( Amer) Est GFR (Non-Af Amer) POC Glucose (mg/dL) 196 H (65-110) mg/dL Random Glucose (75-110) mg/dL Calcium (8.6-10.4) mg/dl Phosphorus (2.5-4.5) mg/dL Magnesium (1.6-2.3) mg/dL Total Bilirubin (0.2-1.3) mg/dL AST (17-59) U/L ALT (21-72) U/L Alkaline Phosphatase (38-126) U/L Total Protein (6.3-8.3) g/dL Albumin (3.5-5.0) g/dL Globulin (2.2-3.9) gm/dL Albumin/Globulin Ratio (1.0-2.1) Random Vancomycin < 5.0 ug/mL C. difficile Ag & Toxin (NEGATIVE) 09/03/17 09/02/17 Range/Units 18:08 06:24 WBC (4.8-10.8) K/uL RBC (4.40-5.90) Mil/uL Hgb (12.0-18.0) g/dL Hct (35.0-51.0) % MCV (80.0-94.0) fL MCH (27.0-31.0) pg MCHC (33.0-37.0) g/dL RDW (11.5-14.5) % Plt Count (130-400) K/uL MPV (7.2-11.7) fL Neut % (Auto) (50.0-75.0) % Lymph % (Auto) (20.0-40.0) % [place] % (Auto) (0.0-10.0) % Eos % (Auto) (0.0-4.0) % Baso % (Auto) (0.0-2.0) % Neut # (Auto) (1.8-7.0) K/uL Lymph # (Auto) (1.0-4.3) K/uL [place] # (Auto) (0.0-0.8) K/uL Eos # (Auto) (0.0-0.7) K/uL Baso # (Auto) (0.0-0.2) K/uL Total Counted Neutrophils % (Manual) Band Neutrophils % Lymphocytes % (Manual) Reactive Lymphs % Monocytes % (Manual) Eosinophils % (Manual) Basophils % (Manual) Metamyelocytes % Myelocytes % Promyelocytes % Blast Cells % Plasma Cell % (Manual) Nucleated RBC % Hypersegmented Polys Smudge Cells Toxic Granulation Dohle Bodies Vonda Rods Platelet Estimate Plt Clumps, EDTA Large Platelets Giant Platelets RBC Morphology Polychromasia Hypochromasia (manual) Poikilocytosis (manual Basophilic Stippling Anisocytosis (manual) Microcytosis (manual) Macrocytosis (manual) Spherocytes Sickle Cells Target Cells Tear Drop Cells Ovalocytes Stomatocytes Helmet Cells Mac-[place] Bodies Jordan Cells Acanthocytes (Spur) Rouleaux Schistocytes G6PD RBC Count 12.8 (7.0-20.5) U/g HGB Fibrinogen (200-400) mg/dL Puncture Site pCO2 (35-45) mm/Hg pO2 (80-100) mm/Hg HCO3 (21-28) mmol/L ABG pH (7.35-7.45) ABG Total CO2 (22-28) mmol/L ABG O2 Saturation (95-98) % ABG Base Excess (-2.0-3.0) mmol/L ABG Hemoglobin (11.7-17.4) g/dL ABG Carboxyhemoglobin (0.5-1.5) % POC ABG HHb (Measured) (0.0-5.0) % ABG Methemoglobin (0.0-3.0) % Harpreet Test A-a O2 Difference mm/Hg Respiratory Index Hgb O2 Saturation (95.0-98.0) % Vent Mode Mechanical Rate FiO2 % Tidal Volume PEEP Sodium (132-148) mmol/L Potassium (3.6-5.2) mmol/L Chloride (98-107) mmol/L Carbon Dioxide (22-30) mmol/L Anion Gap (10-20) BUN (9-20) mg/dL Creatinine (0.8-1.5) mg/dL Est GFR ( Amer) Est GFR (Non-Af Amer) POC Glucose (mg/dL) 124 H (65-110) mg/dL Random Glucose (75-110) mg/dL Calcium (8.6-10.4) mg/dl Phosphorus (2.5-4.5) mg/dL Magnesium (1.6-2.3) mg/dL Total Bilirubin (0.2-1.3) mg/dL AST (17-59) U/L ALT (21-72) U/L Alkaline Phosphatase (38-126) U/L Total Protein (6.3-8.3) g/dL Albumin (3.5-5.0) g/dL Globulin (2.2-3.9) gm/dL Albumin/Globulin Ratio (1.0-2.1) Random Vancomycin ug/mL C. difficile Ag & Toxin (NEGATIVE) Laboratory Results - last 24 hr 09/02/17 09/03/17 09/03/17 06:24 18:08 18:17 WBC RBC Hgb Hct MCV MCH MCHC RDW Plt Count MPV Neut % (Auto) Lymph % (Auto) [place] % (Auto) Eos % (Auto) Baso % (Auto) Neut # (Auto) Lymph # (Auto) [place] # (Auto) Eos # (Auto) Baso # (Auto) Total Counted Neutrophils % (Manual) Band Neutrophils % Lymphocytes % (Manual) Reactive Lymphs % Monocytes % (Manual) Eosinophils % (Manual) Basophils % (Manual) Metamyelocytes % Myelocytes % Promyelocytes % Blast Cells % Plasma Cell % (Manual) Nucleated RBC % Hypersegmented Polys Smudge Cells Toxic Granulation Dohle Bodies Vonda Rods Platelet Estimate Plt Clumps, EDTA Large Platelets Giant Platelets RBC Morphology Polychromasia Hypochromasia (manual) Poikilocytosis (manual Basophilic Stippling Anisocytosis (manual) Microcytosis (manual) Macrocytosis (manual) Spherocytes Sickle Cells Target Cells Tear Drop Cells Ovalocytes Stomatocytes Helmet Cells Mac-[place] Bodies Courtney Cells Acanthocytes (Spur) Rouleaux Schistocytes G6PD RBC Count 12.8 Fibrinogen Puncture Site pCO2 pO2 HCO3 ABG pH ABG Total CO2 ABG O2 Saturation ABG Base Excess ABG Hemoglobin ABG Carboxyhemoglobin POC ABG HHb (Measured) ABG Methemoglobin Harpreet Test A-a O2 Difference Respiratory Index Hgb O2 Saturation Vent Mode Mechanical Rate FiO2 Tidal Volume PEEP Sodium Potassium Chloride Carbon Dioxide Anion Gap BUN Creatinine Est GFR ( Amer) Est GFR (Non-Af Amer) POC Glucose (mg/dL) 124 H Random Glucose Calcium Phosphorus Magnesium Total Bilirubin AST ALT Alkaline Phosphatase Total Protein Albumin Globulin Albumin/Globulin Ratio Random Vancomycin < 5.0 C. difficile Ag & Toxin 09/03/17 09/04/17 09/04/17 23:44 05:15 05:54 WBC RBC Hgb Hct MCV MCH MCHC RDW Plt Count MPV Neut % (Auto) Lymph % (Auto) [place] % (Auto) Eos % (Auto) Baso % (Auto) Neut # (Auto) Lymph # (Auto) [place] # (Auto) Eos # (Auto) Baso # (Auto) Total Counted Neutrophils % (Manual) Band Neutrophils % Lymphocytes % (Manual) Reactive Lymphs % Monocytes % (Manual) Eosinophils % (Manual) Basophils % (Manual) Metamyelocytes % Myelocytes % Promyelocytes % Blast Cells % Plasma Cell % (Manual) Nucleated RBC % Hypersegmented Polys Smudge Cells Toxic Granulation Dohle Bodies Vonda Rods Platelet Estimate Plt Clumps, EDTA Large Platelets Giant Platelets RBC Morphology Polychromasia Hypochromasia (manual) Poikilocytosis (manual Basophilic Stippling Anisocytosis (manual) Microcytosis (manual) Macrocytosis (manual) Spherocytes Sickle Cells Target Cells Tear Drop Cells Ovalocytes Stomatocytes Helmet Cells Mac-[place] Bodies Courtney Cells Acanthocytes (Spur) Rouleaux Schistocytes G6PD RBC Count Fibrinogen Puncture Site Rr pCO2 37 pO2 106 H HCO3 22.7 ABG pH 7.38 ABG Total CO2 23.0 ABG O2 Saturation 99.0 H ABG Base Excess -2.9 L ABG Hemoglobin 9.9 L ABG Carboxyhemoglobin 1.5 POC ABG HHb (Measured) 1.0 ABG Methemoglobin 1.1 Harpreet Test Pos A-a O2 Difference 418.0 Respiratory Index 3.9 Hgb O2 Saturation 96.5 Vent Mode Prvc Mechanical Rate 20 FiO2 80.0 Tidal Volume 450 PEEP 6 Sodium Potassium Chloride Carbon Dioxide Anion Gap BUN Creatinine Est GFR ( Amer) Est GFR (Non-Af Amer) POC Glucose (mg/dL) 196 H 262 H Random Glucose Calcium Phosphorus Magnesium Total Bilirubin AST ALT Alkaline Phosphatase Total Protein Albumin Globulin Albumin/Globulin Ratio Random Vancomycin C. difficile Ag & Toxin 09/04/17 09/04/17 09/04/17 06:32 06:32 06:32 WBC 0.4 L* RBC 3.43 L Hgb 9.9 L Hct 29.1 L MCV 84.9 MCH 29.0 MCHC 34.2 RDW 18.3 H Plt Count 25 L* D MPV 9.0 Neut % (Auto) 4.9 L Lymph % (Auto) 89.7 H [place] % (Auto) 5.3 Eos % (Auto) 0.1 Baso % (Auto) 0.0 Neut # (Auto) 0.4 L Lymph # (Auto) 0.0 L [place] # (Auto) 0.0 Eos # (Auto) 0.0 Baso # (Auto) 0.0 Total Counted Cancelled Neutrophils % (Manual) Cancelled Band Neutrophils % Cancelled Lymphocytes % (Manual) Cancelled Reactive Lymphs % Cancelled Monocytes % (Manual) Cancelled Eosinophils % (Manual) Cancelled Basophils % (Manual) Cancelled Metamyelocytes % Cancelled Myelocytes % Cancelled Promyelocytes % Cancelled Blast Cells % Cancelled Plasma Cell % (Manual) Cancelled Nucleated RBC % Cancelled Hypersegmented Polys Cancelled Smudge Cells Cancelled Toxic Granulation Cancelled Dohle Bodies Cancelled Vonda Rods Cancelled Platelet Estimate Cancelled Plt Clumps, EDTA Cancelled Large Platelets Cancelled Giant Platelets Cancelled RBC Morphology Cancelled Polychromasia Cancelled Hypochromasia (manual) Cancelled Poikilocytosis (manual Cancelled Basophilic Stippling Cancelled Anisocytosis (manual) Cancelled Microcytosis (manual) Cancelled Macrocytosis (manual) Cancelled Spherocytes Cancelled Sickle Cells Cancelled Target Cells Cancelled Tear Drop Cells Cancelled Ovalocytes Cancelled Stomatocytes Cancelled Helmet Cells Cancelled Mac-[place] Bodies Cancelled Courtney Cells Cancelled Acanthocytes (Spur) Cancelled Rouleaux Cancelled Schistocytes Cancelled G6PD RBC Count Fibrinogen 821 H Puncture Site pCO2 pO2 HCO3 ABG pH ABG Total CO2 ABG O2 Saturation ABG Base Excess ABG Hemoglobin ABG Carboxyhemoglobin POC ABG HHb (Measured) ABG Methemoglobin Harpreet Test A-a O2 Difference Respiratory Index Hgb O2 Saturation Vent Mode Mechanical Rate FiO2 Tidal Volume PEEP Sodium 134 Potassium 4.2 Chloride 97 L Carbon Dioxide 22 Anion Gap 19 BUN 92 H Creatinine 2.8 H Est GFR ( Amer) 28 Est GFR (Non-Af Amer) 23 POC Glucose (mg/dL) Random Glucose 221 H Calcium 5.4 L* Phosphorus 6.0 H Magnesium 2.1 Total Bilirubin 4.3 H AST 45 ALT 47 Alkaline Phosphatase 185 H Total Protein 5.3 L Albumin 2.5 L Globulin 2.8 Albumin/Globulin Ratio 0.9 L Random Vancomycin C. difficile Ag & Toxin 09/04/17 09/04/17 11:46 Unknown WBC RBC Hgb Hct MCV MCH MCHC RDW Plt Count MPV Neut % (Auto) Lymph % (Auto) [place] % (Auto) Eos % (Auto) Baso % (Auto) Neut # (Auto) Lymph # (Auto) [place] # (Auto) Eos # (Auto) Baso # (Auto) Total Counted Neutrophils % (Manual) Band Neutrophils % Lymphocytes % (Manual) Reactive Lymphs % Monocytes % (Manual) Eosinophils % (Manual) Basophils % (Manual) Metamyelocytes % Myelocytes % Promyelocytes % Blast Cells % Plasma Cell % (Manual) Nucleated RBC % Hypersegmented Polys Smudge Cells Toxic Granulation Dohle Bodies Vonda Rods Platelet Estimate Plt Clumps, EDTA Large Platelets Giant Platelets RBC Morphology Polychromasia Hypochromasia (manual) Poikilocytosis (manual Basophilic Stippling Anisocytosis (manual) Microcytosis (manual) Macrocytosis (manual) Spherocytes Sickle Cells Target Cells Tear Drop Cells Ovalocytes Stomatocytes Helmet Cells Mac-[place] Bodies Courtney Cells Acanthocytes (Spur) Rouleaux Schistocytes G6PD RBC Count Fibrinogen Puncture Site pCO2 pO2 HCO3 ABG pH ABG Total CO2 ABG O2 Saturation ABG Base Excess ABG Hemoglobin ABG Carboxyhemoglobin POC ABG HHb (Measured) ABG Methemoglobin Harpreet Test A-a O2 Difference Respiratory Index Hgb O2 Saturation Vent Mode Mechanical Rate FiO2 Tidal Volume PEEP Sodium Potassium Chloride Carbon Dioxide Anion Gap BUN Creatinine Est GFR ( Amer) Est GFR (Non-Af Amer) POC Glucose (mg/dL) 206 H Random Glucose Calcium Phosphorus Magnesium Total Bilirubin AST ALT Alkaline Phosphatase Total Protein Albumin Globulin Albumin/Globulin Ratio Random Vancomycin C. difficile Ag & Toxin Negative Assessment/Plan - Assessment and Plan (Free Text) Assessment: 61 y/o male with pmx of prostate ca with mets to lung being treated with XRT and oral chemo. Patient was being treated with mucomyst inhalation and develoepd hypoxic respiratory failure with significant sputum production. ICU evaluated patent at bedside on 6th floor. Patient was being treated with IVF and IV antibiotics. -Acute hypoxic respiratory failure: suspect 2nd large VQ mismatch, peep decrased and FiO2 improved to 50%, continue to monitor to keep spo2 >92 -Septic shock: coff pressros -Pneumonia: legionella; continue doxycycline, avoid moxi as QTC increased, all other cultures neg -Chronic systolic heart failure: check echo, bnp >2000, echo pending -HUSSAIN: avoid nephrotoxic drugs, continue HD as per renal -anemia: 2nd anemia of chronic disease, fob neg -neutropenia: 2nd oral chemo, continue neupogen -GI: continue tub feeds -thrombocytopenia: continue to monitor, and transfuse to keep hemostasis -Transaminitis: resolved -check and replace electrolytes -skin: supplemental MVI/vitamin C + turn q2 hrs -dvt ppx: scds (thrombocytopenia) -PUD ppx protonix -Goals of care discussed with family cc time 35 minutes - Date & Time Date: 09/04/17 Time: 13:00
[2017-09-04 06:20] LABS: ABG ALLEN TEST POS; ARTERIAL BLOOD GAS HCO3 22.7 mmol/L (21-28); ARTERIAL BLOOD GAS HEMOGLOBIN 9.9 g/dL (11.7-17.4); ARTERIAL BLOOD GAS PCO2 37 mm/Hg (35-45); ARTERIAL BLOOD GAS PH 7.38 (7.35-7.45); ARTERIAL BLOOD GAS PO2 106 mm/Hg (80-100)
[2017-09-04 06:43] LABS: MEAN CELL VOLUME 84.9 fL (80.0-94.0); MEAN CORPUSCULAR HGB CONC 34.2 g/dL (33.0-37.0)
[2017-09-04 06:54] LABS: HEMOGLOBIN 9.9 g/dL (12.0-18.0); RBC 3.43 Mil/uL (4.40-5.90); RED CELL DISTRIBUTION WIDTH 18.3 % (11.5-14.5)
[2017-09-04 06:57] LABS: WHITE BLOOD COUNT 0.4 K/uL (4.8-10.8)
[2017-09-04 07:14] LABS: ALB/GLOB RATIO 0.9 (1.0-2.1); ALBUMIN 2.5 g/dL (3.5-5.0); CALCIUM 5.4 mg/dl (8.6-10.4)
[2017-09-04 08:05] LABS: EOS % 0.1 % (0.0-4.0); LYMPH % 89.7 % (20.0-40.0); MONO % 5.3 % (0.0-10.0); NEUT % 4.9 % (50.0-75.0)
[2017-09-04 08:06] LABS: NEUT # 0.4 K/uL (1.8-7.0); NRBC % 5.1 % (0.0-2.0)
[2017-09-04] MEDS: Multivitamin Vitamin B Complex (Nephro-Vite) Tab PO SCH (08:16)
[2017-09-04] MEDS: (Lantus) Insulin Glargine, Recombinant SC SCH (09:54)
[2017-09-04] MEDS: Docusate-Senna 50 mg-8.6 mg Tab GT SCH (09:55)
[2017-09-04] MEDS: Ofloxacin 0.3% Ophth Soln OS SCH ×3 (09:56→17:10)
[2017-09-04] MEDS: Calcitriol 1 mcg/ml Oral Soln (15 ml) PO SCH (09:56)
[2017-09-04] MEDS: Atovaquone 750 mg/5 ml Susp UD PO SCH (09:57)
--- NOTE | 2017-09-04 09:59 | RAD ---
Date of service: 09/04/2017 HISTORY: intubated COMPARISON: 09/03/2017. FINDINGS: Endotracheal tube terminates 3.3 cm proximal to the marcial. The right IJV line terminates in the SVC. The nasogastric tube terminates in the stomach. LUNGS: The lungs are well inflated. There is persistent dense consolidation in the left upper lobe. There is patchy airspace disease in both lower lobes. PLEURA: No significant pleural effusion identified, no pneumothorax apparent. CARDIOVASCULAR: Normal. OSSEOUS STRUCTURES: No significant abnormalities. VISUALIZED UPPER ABDOMEN: Normal. OTHER FINDINGS: None. IMPRESSION: No significant interval change in dense left upper lobe consolidation and patchy airspace disease in both lower lobes. Stable position of support line and tubes.
[2017-09-04] MEDS: Acetaminophen 650mg/20.3ml solution UD PO PRN ×2 (12:40→23:31)
--- NOTE | 2017-09-04 14:41 | CP.PCM.PN ---
Subjective - Date & Time of Evaluation Date of Evaluation: 09/04/17 Time of Evaluation: 14:40 - Subjective Subjective: Nephrology Consultation Note: Assessment: critical oligoanuric Acute Kidney Injury (N17.9) likely ATN due to septic shock started HD 09/01/17 Neutropenic fever/pancytopenia with Left lung pneumonia with legionella s/p bronch 09/01/17 abnormal LFT with hyperbilirubinemia metastatic prostate CA on chemo/radiation acute respi failure s/p mechanical ventilation combined respi and metabolic acidosis Hypocalcemia, hyponatremia Plan no acute need for HD today. margaret plan for HD 4th session tomorrow with 3 Ca bath. maintain hemodynamic stable. hold ACEI/ARB due to HUSSAIN Monitor Input/Output, daily weights and renal function with basic metabolic panel agree with IV calcium supplements pt on stress dose of steroids. also getting Granix ID, heme/onc following started phoslo Dose meds/antibiotics for reduced GFR<10. Avoid fleets enema/magnesium based laxatives. Avoid nephrotoxins/NSAIDs/ iodinated contrast (unless needed emergently) Glycemic control Further work up/management as per primary team Thanks for allowing me to participate in care of your patient. Will follow patient with you. Please call if any Qs. had d/w team and family Dr Cristi Pandey Office: [phone] Chief Complaint; unable to obtain reason for consult: HUSSAIN HPI: Pt is a 61 M with hx of metastatic prostate CA on chemo/radiation therapy admitted with neutropenic fever and pneumonia complicated by septic shock requiring IV pressors and respi failure, intubated transferred to ICU. renal consult for HUSSAIN evaluation no knwon OTC/herbal meds or NSAIDs No known recent iodinated contrast exposure. Noted obvious episodes of low BP ( 81/48). ROS: unable to obtain. Physical Examination: General Appearance: Comfortable, in no acute respiratory distress, ill appearing. febrile Vitals reviewed and noted as below Head; Atraumatic, normocephalic. ENT: orally intubated Neck; supple no lymphadenopathy, no thyromegaly or bruit Lungs: Normal respiratory rate/effort. Breath sounds bilateral equal with few rales at bases Heart: Normal rate. s1s2 normal. No rub or gallop. Extremities: 1-2+ edema. No varicose veins Neurological: Patient is sedated Skin: Warm and dry. Normal turgor. No rash. Palpitation: Normal elasticity for age Abdomen: Abdomen is soft. Bowel sounds +. There is no abdominal tenderness, no guarding/rigidity no organomegaly Psych: unable MSK: no joint tenderness or swelling. Digits and nails normal, no deformity : kidney or bladder not palpable. has montemayor catheter, no scrotal swelling access: rt femoral shiley Labs/imaging reviewed. Past medical history, past surgical history, family history, social history, allergy reviewed and noted as below Family hx: no hx of CKD. Rest non-contributory work up: renal sono: WNL UA no protein Objective - Vital Signs/Intake and Output Vital Signs (last 24 hours): Temp Pulse Resp BP Pulse Ox 100.4 F H 121 H 27 H 117/65 93 L 09/04/17 12:40 09/04/17 12:00 09/04/17 12:00 09/04/17 11:47 09/04/17 12:00 Intake and Output: 09/04/17 09/04/17 06:59 18:59 Intake Total 1204.8 150 Output Total 150 15 Balance 1054.8 135 - Medications Medications: Current Medications Acetaminophen (Tylenol 650mg/20.3ml Solution Ud) 650 mg PO Q8 PRN PRN Reason: Fever >100.4 F Last Admin: 09/04/17 12:40 Dose: 650 mg Atovaquone (Mepron) 1,500 mg PO DAILY [facility] PRN Reason: Protocol Last Admin: 09/04/17 09:57 Dose: 1,500 mg Calcitriol (Rocaltrol) 1 mcg PO DAILY [facility] Last Admin: 09/04/17 09:56 Dose: 1 mcg Calcium Acetate (Phoslo) 667 mg GT TIDCC [facility] Last Admin: 09/04/17 12:40 Dose: 667 mg Famotidine (Pepcid) 20 mg PO DAILY [facility] Hydrocortisone Sodium Succinate (Solu-Cortef) 100 mg IV Q8H [facility] Last Admin: 09/04/17 09:55 Dose: 100 mg Propofol (Diprivan) 1,000 mg in 100 mls @ 2.218 mls/hr IV .Q24H PRN; Protocol; 5 MCG/KG/MIN PRN Reason: TITRATE PER MD ORDER Last Titration: 09/03/17 19:45 Dose: 0 mcg/kg/min, 0 mls/hr Azithromycin 250 mg/ Sodium (Chloride) 250 mls @ 250 mls/hr IVPB Q24H [facility]NAN PRN Reason: Protocol Last Admin: 09/03/17 17:11 Dose: 250 mls/hr Meropenem 500 mg/ Sodium (Chloride) 100 mls @ 100 mls/hr IVPB Q8 [facility]N PRN Reason: Protocol Last Admin: 09/04/17 13:30 Dose: 100 mls/hr Micafungin Sodium 100 mg/ (Sodium Chloride) 100 mls @ 100 mls/hr IV Q24H [facility]N PRN Reason: Protocol Last Admin: 09/04/17 02:57 Dose: 100 mls/hr Vasopressin 40 units/ Dextrose 40 mls @ 0.6 mls/hr IV .Q24H RENAN; 0.01 UNITS/MIN PRN Reason: Protocol Last Admin: 09/03/17 20:44 Dose: Not Given Insulin Aspart (Novolog) 0 unit SC Q6 RENAN PRN Reason: Protocol Last Admin: 09/04/17 12:40 Dose: 2 u Insulin Glargine (Lantus) 15 unit SC QAM [facility] Last Admin: 09/04/17 09:54 Dose: 15 unit Lorazepam (Ativan) 1 mg IVP Q6H PRN PRN Reason: Anxiety Last Admin: 08/29/17 21:29 Dose: 1 mg Ofloxacin (Ocuflox Ophth 0.3%) 0 ml OS TID [facility] Last Admin: 09/04/17 13:30 Dose: 1 drop Senna/Docusate Sodium (Senokot S 50 Mg-8.6 Mg) 1 tab GT DAILY [facility] Last Admin: 09/04/17 09:55 Dose: 1 tab Vitamin B Complex/Vit C/Folic Acid (Nephro-Chauncey) 1 tab PO 0800 RENAN Last Admin: 09/04/17 08:16 Dose: 1 tab - Labs Labs: 09/04/17 06:32 09/04/17 06:32 PT 15.5 SECONDS (9.7-12.2) H 09/02/17 16:39 INR 1.4 09/02/17 16:39 APTT 36 SECONDS (21-34) H D 08/31/17 14:07
[2017-09-04] MEDS: Azithromycin 250 MG in Sodium Chloride 0.9% 250 ML IVPB SCH (17:10)
[2017-09-04] MEDS: Thiamine 100 mg/ml Inj IV SCH ×2 (17:10→23:48)
--- NOTE | 2017-09-04 18:33 | CP.PCM.PN ---
Subjective - Date & Time of Evaluation Date of Evaluation: 09/04/17 Time of Evaluation: 18:31 - Subjective Subjective: AFEBRILE OVERNIGHT PATIENT ON VENTILATOR. HYPOTENSIVE ON VASOPRESSORS REMAINS NEUTROPENIC. ROS ; NA PATIENT IS SEDATED. Objective - Vital Signs/Intake and Output Vital Signs (last 24 hours): Temp Pulse Resp BP Pulse Ox 98.9 F 115 H 24 104/64 95 09/04/17 13:40 09/04/17 18:00 09/04/17 18:00 09/04/17 17:47 09/04/17 18:00 Intake and Output: 09/04/17 09/04/17 06:59 18:59 Intake Total 1204.8 300 Output Total 150 15 Balance 1054.8 285 - Medications Medications: Current Medications Acetaminophen (Tylenol 650mg/20.3ml Solution Ud) 650 mg PO Q8 PRN PRN Reason: Fever >100.4 F Last Admin: 09/04/17 12:40 Dose: 650 mg Atovaquone (Mepron) 1,500 mg PO DAILY [facility] PRN Reason: Protocol Last Admin: 09/04/17 09:57 Dose: 1,500 mg Calcitriol (Rocaltrol) 1 mcg PO DAILY [facility] Last Admin: 09/04/17 09:56 Dose: 1 mcg Calcium Acetate (Phoslo) 667 mg GT TIDCC [facility] Last Admin: 09/04/17 17:10 Dose: 667 mg Famotidine (Pepcid) 20 mg PO DAILY [facility] Azithromycin 250 mg/ Sodium (Chloride) 250 mls @ 250 mls/hr IVPB Q24H [facility] PRN Reason: Protocol Last Admin: 09/04/17 17:10 Dose: 250 mls/hr Micafungin Sodium 100 mg/ (Sodium Chloride) 100 mls @ 100 mls/hr IV Q24H [facility] PRN Reason: Protocol Last Admin: 09/04/17 02:57 Dose: 100 mls/hr Meropenem 500 mg/ Sodium (Chloride) 100 mls @ 100 mls/hr IVPB Q12 [facility] PRN Reason: Protocol Insulin Aspart (Novolog) 0 unit SC Q6 [facility] PRN Reason: Protocol Last Admin: 09/04/17 12:40 Dose: 2 u Insulin Glargine (Lantus) 15 unit SC QAM [facility] Last Admin: 09/04/17 09:54 Dose: 15 unit Lorazepam (Ativan) 1 mg IVP Q6H PRN PRN Reason: Anxiety Last Admin: 08/29/17 21:29 Dose: 1 mg Ofloxacin (Ocuflox Ophth 0.3%) 0 ml OS TID [facility] Last Admin: 09/04/17 17:10 Dose: 1 drop Senna/Docusate Sodium (Senokot S 50 Mg-8.6 Mg) 1 tab GT DAILY [facility] Last Admin: 09/04/17 09:55 Dose: 1 tab Thiamine HCl (Vitamin B1 Inj) 200 mg IV Q8H [facility] Last Admin: 09/04/17 17:10 Dose: 200 mg Vitamin B Complex/Vit C/Folic Acid (Nephro-Chauncey) 1 tab PO 0800 [facility] Last Admin: 09/04/17 08:16 Dose: 1 tab - Labs Labs: 09/04/17 06:32 09/04/17 06:32 PT 15.5 SECONDS (9.7-12.2) H 09/02/17 16:39 INR 1.4 09/02/17 16:39 APTT 36 SECONDS (21-34) H D 08/31/17 14:07 - Constitutional Appears: No Acute Distress, Chronically Ill - Head Exam Head Exam: NORMAL INSPECTION - Eye Exam Eye Exam: PERRL - ENT Exam ENT Exam: Mucous Membranes Moist - Neck Exam Neck Exam: Normal Inspection - Respiratory Exam Respiratory Exam: Rhonchi (LT > RT.) - Cardiovascular Exam Cardiovascular Exam: Tachycardia, REGULAR RHYTHM, +S1, +S2 - GI/Abdominal Exam GI & Abdominal Exam: Soft, Normal Bowel Sounds - Extremities Exam Extremities Exam: Pedal Edema. absent: Calf Tenderness - Neurological Exam Neurological Exam: Altered - Skin Skin Exam: Dry, Warm Assessment and Plan (1) Pancytopenia Status: Acute (2) Abdominal pain Status: Acute (3) Esophagitis Status: Acute (4) Metastatic malignant neoplasm to prostate Status: Acute - Assessment and Plan (Free Text) Assessment: ASSESSMENT RESPIRATORY FAILURE NEUTROPENIC FEVERS /MULTIORGAN FAILURE PNEUMONIA - LEGIONELLA ANTIGEN POSITIVE ( ? LEGIONELLA PNEUMOPHILLA ) S/P FOB 09/01/17 METASTATIC CA PROSTRATE. STAGE 1V HX OF ESOPHAGITIS VI S/P EGD ABNORMAL LIVER FUNCTION TESTS-SHOCK LIVER VS CHOLESTASIS VS LEGIONELLOSIS ACUTE RENAL FAILURE SEC SHOCK/HYPOTENSION ON HD ? EARLY DIC PLAN : ADD IV VANCOMYCIN 1GM IVPB POST HD TODAY IF VANC RANDOM <10.AND THEN 1 GM POST EACH HD MWF X 5 DOSES. 09/03/17 . DECREASE iv MERREM 500 MG IV Q 12HRLY . 08/26/17 .ON IV AZITHROMICIN 250MG IV PB [id number] ON IV MYCAFUNGIN 100MG IV [id number] 08/31/17. CONTINUE MEPRON 1500 MG OD DAILY. 08/27/17 (NO DOSAGE ADJUSTMENT IN RENALFAILURE ) PATIENT NOT A CANDIDATE FOR PENTAMADINE IN VIEW OF HYPOTENSION,RENAL FAILURE , THROMBOCYTOPENIA AND NEUROTOXICITY. CHECK GLUCOSE 6 PHOSPHATE LEVELS. ON IV STEROIDS ORDERED BY INTENSIVISTS.50 MG EVERY 8 HOURLY 08/31/17 NEUTROPENIC PRECAUTIONS. PULMONARY TOILET. F/U [employer],FUNGUS.PCP, VIRAL S/P FOB. F/U [employer] FOR LEGINELLA CULTURE. (SENT 08/27/[address] Luciano CARLTON ) PROGNOSIS GRAVE.
--- NOTE | 2017-09-04 20:47 | CP.PCM.PN ---
Subjective - Date & Time of Evaluation Date of Evaluation: 09/04/17 Time of Evaluation: 13:00 - Subjective Subjective: clinically same Objective - Vital Signs/Intake and Output Vital Signs (last 24 hours): Temp Pulse Resp BP Pulse Ox 98.9 F 115 H 24 104/64 95 09/04/17 13:40 09/04/17 18:00 09/04/17 18:00 09/04/17 17:47 09/04/17 18:00 Intake and Output: 09/04/17 09/05/17 18:59 06:59 Intake Total 300 Output Total 15 Balance 285 - Medications Medications: Current Medications Acetaminophen (Tylenol 650mg/20.3ml Solution Ud) 650 mg PO Q8 PRN PRN Reason: Fever >100.4 F Last Admin: 09/04/17 12:40 Dose: 650 mg Atovaquone (Mepron) 1,500 mg PO DAILY [facility] PRN Reason: Protocol Last Admin: 09/04/17 09:57 Dose: 1,500 mg Calcitriol (Rocaltrol) 1 mcg PO DAILY [facility] Last Admin: 09/04/17 09:56 Dose: 1 mcg Calcium Acetate (Phoslo) 667 mg GT TIDCC [facility] Last Admin: 09/04/17 17:10 Dose: 667 mg Famotidine (Pepcid) 20 mg PO DAILY [facility] Azithromycin 250 mg/ Sodium (Chloride) 250 mls @ 250 mls/hr IVPB Q24H [facility] PRN Reason: Protocol Last Admin: 09/04/17 17:10 Dose: 250 mls/hr Micafungin Sodium 100 mg/ (Sodium Chloride) 100 mls @ 100 mls/hr IV Q24H [facility] PRN Reason: Protocol Last Admin: 09/04/17 02:57 Dose: 100 mls/hr Meropenem 500 mg/ Sodium (Chloride) 100 mls @ 100 mls/hr IVPB Q12 [facility] PRN Reason: Protocol Insulin Aspart (Novolog) 0 unit SC Q6 [facility] PRN Reason: Protocol Last Admin: 09/04/17 18:30 Dose: 2 u Insulin Glargine (Lantus) 15 unit SC QAM [facility] Last Admin: 09/04/17 09:54 Dose: 15 unit Lorazepam (Ativan) 1 mg IVP Q6H PRN PRN Reason: Anxiety Last Admin: 08/29/17 21:29 Dose: 1 mg Ofloxacin (Ocuflox Ophth 0.3%) 0 ml OS TID [facility] Last Admin: 09/04/17 17:10 Dose: 1 drop Senna/Docusate Sodium (Senokot S 50 Mg-8.6 Mg) 1 tab GT DAILY [facility] Last Admin: 09/04/17 09:55 Dose: 1 tab Thiamine HCl (Vitamin B1 Inj) 200 mg IV Q8H [facility] Last Admin: 09/04/17 17:10 Dose: 200 mg Vitamin B Complex/Vit C/Folic Acid (Nephro-Chauncey) 1 tab PO 0800 [facility] Last Admin: 09/04/17 08:16 Dose: 1 tab - Labs Labs: 09/04/17 06:32 09/04/17 06:32 PT 15.5 SECONDS (9.7-12.2) H 09/02/17 16:39 INR 1.4 09/02/17 16:39 APTT 36 SECONDS (21-34) H D 08/31/17 14:07 Assessment and Plan (1) Acute respiratory failure Status: Acute (2) Anemia Status: Acute (3) Chronic pain Status: Acute (4) Esophagitis Status: Acute (5) Gastritis Status: Acute (6) Pancytopenia Status: Acute (7) Abdominal pain Status: Acute (8) Chest discomfort Status: Acute (9) Constipation Status: Acute (10) Intractable abdominal pain Status: Acute (11) Metastatic malignant neoplasm to prostate Status: Acute (12) Neutropenia Status: Acute
[2017-09-05] MEDS: Micafungin 100 MG in Sodium Chloride 0.9% 100 ML IV SCH (03:12)
[2017-09-05 06:01] LABS: ABG ALLEN TEST POS; ARTERIAL BLOOD GAS HCO3 20.2 mmol/L (21-28); ARTERIAL BLOOD GAS O2 SAT 92.7 % (95-98); ARTERIAL BLOOD GAS PCO2 36 mm/Hg (35-45); ARTERIAL BLOOD GAS PH 7.34 (7.35-7.45); ARTERIAL BLOOD GAS PO2 58 mm/Hg (80-100); ARTERIAL BLOOD GAS TCO2 20.5 mmol/L (22-28)
[2017-09-05 06:15] LABS: EOS % 1.1 % (0.0-4.0); HEMOGLOBIN 9.6 g/dL (12.0-18.0); LYMPH # 0.3 K/uL (1.0-4.3); LYMPH % 49.6 % (20.0-40.0); MEAN CELL VOLUME 86.6 fL (80.0-94.0); MEAN CORPUSCULAR HEMOGLOBIN 29.3 pg (27.0-31.0); MEAN CORPUSCULAR HGB CONC 33.9 g/dL (33.0-37.0); MEAN PLATELET VOLUME 9.7 fL (7.2-11.7); MONO # 0.1 K/uL (0.0-0.8); MONO % 28.1 % (0.0-10.0); NEUT # 0.1 K/uL (1.8-7.0); NEUT % 21.2 % (50.0-75.0); NRBC % 6.2 % (0.0-2.0); RBC 3.28 Mil/uL (4.40-5.90); RED CELL DISTRIBUTION WIDTH 18.5 % (11.5-14.5)
[2017-09-05 06:23] LABS: PLATELET COUNT 15 K/uL (130-400); WHITE BLOOD COUNT 0.5 K/uL (4.8-10.8)
[2017-09-05] MEDS: (Novolog) Insulin Aspart, Recombinant 100 u/ml 10 ml vial SC SCH ×3 (06:54→18:08)
[2017-09-05 07:10] LABS: ALB/GLOB RATIO 0.8 (1.0-2.1); ALBUMIN 2.4 g/dL (3.5-5.0); CALCIUM 4.7 mg/dl (8.6-10.4)
[2017-09-05] MEDS: Multivitamin Vitamin B Complex (Nephro-Vite) Tab PO SCH (08:06)
[2017-09-05] MEDS: Thiamine 100 mg/ml Inj IV SCH ×2 (08:06→18:06)
[2017-09-05 08:41] LABS: BANDS 5 % (0-2); LYMPHOCYTE 25 % (20-40); MONOCYTE 24 % (0-10); NEUTROPHIL 46 % (50-75); NUCLEATED RED BLOOD CELL 6 % (0-0); PLATELET ESTIMATE MARKEDLY DECREASED (NORMAL); TOTAL CELLS COUNTED 100
[2017-09-05 08:42] LABS: ANISOCYTOSIS MODERATE; HYPOCHROMIC SLIGHT; POLYCHROMIC SLIGHT
--- NOTE | 2017-09-05 10:01 | RAD ---
Chest x-ray single frontal view History: Intubated. Comparison: 09/04/2017 Findings: Lines and tubes in stable position. Dense complete opacification of the left pari thorax with associated air bronchograms. Right hilar consolidative changes. Question diastases of the right shoulder joint. Clinical correlation. Impression: Lines and tubes in stable position. Dense complete opacification of the left pari thorax with associated air bronchograms. Right hilar consolidative changes. Question diastases of the right shoulder joint. Clinical correlation.
--- NOTE | 2017-09-05 10:36 | CT ---
Date of service: 09/05/2017 PROCEDURE: CT HEAD WITHOUT CONTRAST. HISTORY: Altered mental status COMPARISON: None available. TECHNIQUE: Axial computed tomography images were obtained through the head/brain without intravenous contrast. Radiation dose: Total exam DLP = 1175 mGy-cm. This CT exam was performed using one or more of the following dose reduction techniques: Automated exposure control, adjustment of the mA and/or kV according to patient size, and/or use of iterative reconstruction technique. FINDINGS: HEMORRHAGE: No intracranial hemorrhage. BRAIN: No mass effect or edema. No atrophy or chronic microvascular ischemic changes. Mild bifrontal atrophy. Punctate hypodensity in the left basal ganglia may represent prominent perivascular space versus small lacunar infarct. VENTRICLES: Unremarkable. No hydrocephalus. CALVARIUM: Unremarkable. PARANASAL SINUSES: Unremarkable as visualized. No significant inflammatory changes. MASTOID AIR CELLS: Unremarkable as visualized. No inflammatory changes. OTHER FINDINGS: None. IMPRESSION: No acute intracranial abnormality. Mild atrophy of the bilateral frontal lobes with prominence of the CSF extra-axial spaces. Punctate hypodensity in the left basal ganglia suggestive for a perivascular space versus small lacunar infarct. If symptoms persists, consider correlation with MRI.
[2017-09-05] MEDS: (Lantus) Insulin Glargine, Recombinant SC SCH (10:37)
[2017-09-05] MEDS: Meropenem 500 MG in Sodium Chloride 0.9% 100 ML IVPB SCH ×2 (10:38→22:03)
[2017-09-05] MEDS: Atovaquone 750 mg/5 ml Susp UD PO SCH (10:38)
[2017-09-05] MEDS: Calcitriol 1 mcg/ml Oral Soln (15 ml) PO SCH (11:31)
[2017-09-05] MEDS: Ofloxacin 0.3% Ophth Soln OS SCH ×3 (11:31→18:07)
[2017-09-05] MEDS ORDERED: Albumin Human 25% (12.5 gm/50 ml) IV STA (14:18)
--- NOTE | 2017-09-05 15:06 | CP.PCM.PN ---
Subjective - Date & Time of Evaluation Date of Evaluation: 09/05/17 Time of Evaluation: 13:00 - Subjective Subjective: clinically same Objective - Vital Signs/Intake and Output Vital Signs (last 24 hours): Temp Pulse Resp BP Pulse Ox 100.4 F H 96 H 16 90/57 L 99 09/05/17 14:00 09/05/17 14:28 09/05/17 14:28 09/05/17 14:28 09/05/17 14:28 Intake and Output: 09/05/17 09/05/17 06:59 18:59 Intake Total 500 875 Output Total 50 0 Balance 450 875 - Medications Medications: Current Medications Acetaminophen (Tylenol 650mg/20.3ml Solution Ud) 650 mg PO Q8 PRN PRN Reason: Fever >100.4 F Last Admin: 09/04/17 23:31 Dose: 650 mg Atovaquone (Mepron) 1,500 mg PO DAILY [facility] PRN Reason: Protocol Last Admin: 09/05/17 10:38 Dose: 1,500 mg Calcitriol (Rocaltrol) 1 mcg PO DAILY [facility] Last Admin: 09/05/17 11:31 Dose: 1 mcg Calcium Acetate (Phoslo) 667 mg GT TIDCC [facility] Last Admin: 09/05/17 13:17 Dose: 667 mg Calcium Carbonate (Calcium Carbonate) 1,250 mg PO Q8H [facility] Last Admin: 09/05/17 10:37 Dose: 1,250 mg Famotidine (Pepcid) 20 mg PO DAILY [facility] Last Admin: 09/05/17 10:37 Dose: 20 mg Azithromycin 250 mg/ Sodium (Chloride) 250 mls @ 250 mls/hr IVPB Q24H [facility] PRN Reason: Protocol Last Admin: 09/04/17 17:10 Dose: 250 mls/hr Micafungin Sodium 100 mg/ (Sodium Chloride) 100 mls @ 100 mls/hr IV Q24H [facility] PRN Reason: Protocol Last Admin: 09/05/17 03:12 Dose: 100 mls/hr Meropenem 500 mg/ Sodium (Chloride) 100 mls @ 100 mls/hr IVPB Q12 [facility] PRN Reason: Protocol Last Admin: 09/05/17 10:38 Dose: 100 mls/hr Insulin Aspart (Novolog) 0 unit SC Q6 [facility] PRN Reason: Protocol Last Admin: 09/05/17 13:17 Dose: 1 u Insulin Glargine (Lantus) 15 unit SC QAM [facility] Last Admin: 09/05/17 10:37 Dose: 15 unit Lorazepam (Ativan) 1 mg IVP Q6H PRN PRN Reason: Anxiety Last Admin: 08/29/17 21:29 Dose: 1 mg Ofloxacin (Ocuflox Ophth 0.3%) 0 ml OS TID [facility] Last Admin: 09/05/17 13:18 Dose: 2 drop Thiamine HCl (Vitamin B1 Inj) 200 mg IV Q8H [facility] Last Admin: 09/05/17 08:06 Dose: 200 mg Vitamin B Complex/Vit C/Folic Acid (Nephro-Chauncey) 1 tab PO 0800 [facility] Last Admin: 09/05/17 08:06 Dose: 1 tab - Labs Labs: 09/05/17 06:06 09/05/17 06:07 PT 15.5 SECONDS (9.7-12.2) H 09/02/17 16:39 INR 1.4 09/02/17 16:39 APTT 36 SECONDS (21-34) H D 08/31/17 14:07 - Constitutional Appears: Well - Head Exam Head Exam: ATRAUMATIC, NORMAL INSPECTION, NORMOCEPHALIC - Eye Exam Eye Exam: EOMI, Normal appearance, PERRL Pupil Exam: NORMAL ACCOMODATION, PERRL - ENT Exam ENT Exam: Mucous Membranes Moist, Normal Exam - Neck Exam Neck Exam: Full ROM, Normal Inspection. absent: Lymphadenopathy - Respiratory Exam Respiratory Exam: Decreased Breath Sounds - Cardiovascular Exam Cardiovascular Exam: REGULAR RHYTHM, +S1, +S2 - GI/Abdominal Exam GI & Abdominal Exam: Soft, Diminished Bowel Sounds - Rectal Exam Rectal Exam: Deferred Assessment and Plan (1) Acute respiratory failure Status: Acute (2) Anemia Status: Acute (3) Chronic pain Status: Acute (4) Esophagitis Status: Acute (5) Gastritis Status: Acute (6) Pancytopenia Status: Acute (7) Abdominal pain Status: Acute (8) Chest discomfort Status: Acute (9) Constipation Status: Acute (10) Intractable abdominal pain Status: Acute (11) Metastatic malignant neoplasm to prostate Status: Acute (12) Neutropenia Status: Acute
[2017-09-05] MEDS ORDERED: Albumin Human 25% (12.5 gm/50 ml) IV ONE (16:30)
[2017-09-05] MEDS: Azithromycin 250 MG in Sodium Chloride 0.9% 250 ML IVPB SCH (18:07)
--- NOTE | 2017-09-05 18:39 | CP.PCM.PN ---
Subjective - Date & Time of Evaluation Date of Evaluation: 09/05/17 Time of Evaluation: 18:35 - Subjective Subjective: Nephrology Consultation Note: Assessment: critical oligoanuric Acute Kidney Injury (N17.9) likely ATN due to septic shock started HD 09/01/17 Neutropenic fever/pancytopenia with Left lung pneumonia with legionella s/p bronch 09/01/17 abnormal LFT with hyperbilirubinemia metastatic prostate CA on chemo/radiation acute respi failure s/p mechanical ventilation combined respi and metabolic acidosis Hypocalcemia, hyponatremia Plan HD today w/ 3 ca bath. maintain hemodynamic stable. hold ACEI/ARB due to HUSSAIN Monitor Input/Output, daily weights and renal function with basic metabolic panel cont calcium supplementation, will inc phoslo given hyperphos, will check cpk. please check ionized calcium as well pt on stress dose of steroids. also getting Granix ID, heme/onc following Dose meds/antibiotics for reduced GFR<10. Avoid fleets enema/magnesium based laxatives. Avoid nephrotoxins/NSAIDs/ iodinated contrast (unless needed emergently) Glycemic control Further work up/management as per primary team S: seen and examined intubated and sedated Physical Examination: General Appearance: Comfortable, in no acute respiratory distress, ill appearing. febrile Vitals reviewed and noted as below Head; Atraumatic, normocephalic. ENT: orally intubated Neck; supple no lymphadenopathy, no thyromegaly or bruit Lungs: Normal respiratory rate/effort. breath sound reduced at bases Heart: Normal rate. s1s2 normal. No rub or gallop. Extremities: 1-2+ edema. No varicose veins Neurological: Patient is sedated Skin: Warm and dry. Normal turgor. No rash. Palpitation: Normal elasticity for age Abdomen: Abdomen is soft. Bowel sounds +. There is no abdominal tenderness, no guarding/rigidity no organomegaly Psych: unable to assess intubated and sedated MSK: no joint tenderness or swelling. Digits and nails normal, no deformity : kidney or bladder not palpable. has montemayor catheter, no scrotal swelling access: rt femoral shiley Objective - Vital Signs/Intake and Output Vital Signs (last 24 hours): Temp Pulse Resp BP Pulse Ox 100.4 F H 100 H 27 H 96/51 L 97 09/05/17 14:00 09/05/17 18:00 09/05/17 18:00 09/05/17 17:57 09/05/17 18:00 Intake and Output: 09/05/17 09/05/17 06:59 18:59 Intake Total 500 1325 Output Total 50 0 Balance 450 1325 - Medications Medications: Current Medications Acetaminophen (Tylenol 650mg/20.3ml Solution Ud) 650 mg PO Q8 PRN PRN Reason: Fever >100.4 F Last Admin: 09/04/17 23:31 Dose: 650 mg Atovaquone (Mepron) 1,500 mg PO DAILY [facility] PRN Reason: Protocol Last Admin: 09/05/17 10:38 Dose: 1,500 mg Calcitriol (Rocaltrol) 1 mcg PO DAILY [facility] Last Admin: 09/05/17 11:31 Dose: 1 mcg Calcium Acetate (Phoslo) 667 mg GT TIDCC [facility] Last Admin: 09/05/17 18:06 Dose: 667 mg Calcium Carbonate (Calcium Carbonate) 1,250 mg PO Q8H [facility] Last Admin: 09/05/17 18:06 Dose: 1,250 mg Famotidine (Pepcid) 20 mg PO DAILY [facility] Last Admin: 09/05/17 10:37 Dose: 20 mg Azithromycin 250 mg/ Sodium (Chloride) 250 mls @ 250 mls/hr IVPB Q24H [facility] PRN Reason: Protocol Last Admin: 09/05/17 18:07 Dose: 250 mls/hr Micafungin Sodium 100 mg/ (Sodium Chloride) 100 mls @ 100 mls/hr IV Q24H [facility] PRN Reason: Protocol Last Admin: 09/05/17 03:12 Dose: 100 mls/hr Meropenem 500 mg/ Sodium (Chloride) 100 mls @ 100 mls/hr IVPB Q12 [facility] PRN Reason: Protocol Last Admin: 09/05/17 10:38 Dose: 100 mls/hr Insulin Aspart (Novolog) 0 unit SC Q6 [facility] PRN Reason: Protocol Last Admin: 09/05/17 18:08 Dose: Not Given Insulin Glargine (Lantus) 15 unit SC QAM [facility] Last Admin: 09/05/17 10:37 Dose: 15 unit Lorazepam (Ativan) 1 mg IVP Q6H PRN PRN Reason: Anxiety Last Admin: 08/29/17 21:29 Dose: 1 mg Ofloxacin (Ocuflox Ophth 0.3%) 0 ml OS TID [facility] Last Admin: 09/05/17 18:07 Dose: 2 drop Thiamine HCl (Vitamin B1 Inj) 200 mg IV Q8H [facility] Last Admin: 09/05/17 18:06 Dose: 200 mg Vitamin B Complex/Vit C/Folic Acid (Nephro-Chauncey) 1 tab PO 0800 [facility] Last Admin: 09/05/17 08:06 Dose: 1 tab - Labs Labs: 09/05/17 06:06 09/05/17 06:07 PT 15.5 SECONDS (9.7-12.2) H 09/02/17 16:39 INR 1.4 09/02/17 16:39 APTT 36 SECONDS (21-34) H D 08/31/17 14:07
[2017-09-05] MEDS: Acetaminophen 650mg/20.3ml solution UD PO PRN (22:03)
--- NOTE | 2017-09-05 22:13 | CP.CCUPN ---
CCU Subjective - Physician Review Events Since Last Encounter (Free Text): 09/05/17 22:12 Patient overall condition is worsening. This morning he had a CAT scan of the head. No evidence of any acute, changes noted. Patient is hypertensive. Unable to do the dialysis. Patient decided to 2 doses of albumin. On examination: Vital signs unstable. Hypotension noted. Hypoxia present. Chest wheezing noted. Left lung reduced air entry edema noted Assessment and recommendation: Patient with multiple metastatic is Prostatic cancer. Acute renal failure Pneumonia. Severe pancytopenia Absolute neutropenia. Worsening prognosis. No improvement in the WBC noted. Overall prognosis is bad. CCU Objective - Vital Signs / Intake & Output Vital Signs (Last 4 hours): Vital Signs Temp Pulse Resp BP Pulse Ox 09/05/17 22:03 101 F H 09/05/17 21:00 110 H 22 95 09/05/17 20:57 113 H 16 93/47 L 95 09/05/17 20:00 116 H 22 96 09/05/17 19:57 109 H 14 106/59 L 96 09/05/17 19:00 108 H 24 96 09/05/17 18:57 108 H 15 103/56 L 97 Intake and Output (Last 8hrs): Intake & Output 09/05/17 09/05/17 09/05/17 06:59 14:59 22:59 Intake Total 300 875 625 Output Total 0 0 150 Balance 300 875 475 Weight 179 lb 0.246 oz Intake: Intake, IV Amount 100 350 250 Right Distal Port 350 250 Internal Jugular Right Wrist 100 Tube Feeding 200 425 175 Other 100 200 Output: Urine 0 0 150 Condom 0 0 150 Other: # Bowel Movements 1 1 1 - Physical Exam Head: Positive for: Atraumatic, Normocephalic Pupils: Positive for: Sluggish Conjunctiva: Positive for: Injected (left eye injected and swollen) Mouth: Positive for: Moist Mucous Membranes Respiratory/Chest: Positive for: Decreased Breath Sounds (L>R) Cardiovascular: Positive for: Regular Rate and Rhythm. Negative for: Murmurs Abdomen: Positive for: Distention, Normal Bowel Sounds Upper Extremity: Positive for: Normal Inspection, Edema (edema developing). Negative for: Cyanosis Lower Extremity: Positive for: Normal Inspection, Edema (edema developing) Neurological: Negative for: GCS=15 Skin: Positive for: Normal Color, Hot Psychiatric: Negative for: Alert - Medications Active Medications: Active Medications Generic Name Dose Route Start Last Admin Trade Name Freq PRN Reason Stop Dose Admin Acetaminophen 650 mg 08/30/17 20:45 09/05/17 22:03 Tylenol 650mg/20.3ml Solution Ud PO 650 mg Q8 PRN Administration Fever >100.4 F Atovaquone 1,500 mg 08/27/17 13:30 09/05/17 10:38 Mepron PO 1,500 mg DAILY RENAN Administration Protocol Calcitriol 1 mcg 09/04/17 10:00 09/05/17 11:31 Rocaltrol PO 1 mcg DAILY RENAN Administration Calcium Acetate 2,001 mg 09/05/17 20:00 09/05/17 21:00 Phoslo GT 2,001 mg TIDCC RENAN Administration Calcium Carbonate 1,250 mg 09/05/17 10:00 09/05/17 18:06 Calcium Carbonate PO 1,250 mg Q8H RENAN Administration Famotidine 20 mg 09/05/17 10:00 09/05/17 10:37 Pepcid PO 20 mg DAILY RENAN Administration Azithromycin 250 mg/ Sodium 250 mls @ 250 mls/hr 09/01/17 17:00 09/05/17 18: 07 Chloride IVPB 250 mls/hr Q24H RENAN Administration Protocol Micafungin Sodium 100 mg/ 100 mls @ 100 mls/hr 09/01/17 02:45 09/05/17 03:12 Sodium Chloride IV 100 mls/hr Q24H RENAN Administration Protocol Meropenem 500 mg/ Sodium 100 mls @ 100 mls/hr 09/04/17 22:00 09/05/17 22:03 Chloride IVPB 100 mls/hr Q12 RENAN Administration Protocol Insulin Aspart 0 unit 08/27/17 18:00 09/05/17 18:08 Novolog SC Not Given Q6 RENAN Protocol Insulin Glargine 15 unit 08/30/17 10:00 09/05/17 10:37 Lantus SC 15 unit QAM RENAN Administration Lorazepam 1 mg 08/29/17 21:13 08/29/17 21:29 Ativan IVP 1 mg Q6H PRN Administration Anxiety Ofloxacin 0 ml 09/04/17 10:00 09/05/17 18:07 Ocuflox Ophth 0.3% OS 2 drop TID RENAN Administration Thiamine HCl 200 mg 09/04/17 16:45 09/05/17 18:06 Vitamin B1 Inj IV 200 mg Q8H RENAN Administration Vitamin B Complex/Vit C/Folic Acid 1 tab 09/01/17 08:00 09/05/17 08:06 Nephro-Chauncey PO 1 tab 0800 RENAN Administration - Patient Studies Lab Studies: Microbiology Studies 09/03/17 13:05 Blood Culture - Preliminary Blood NO GROWTH AFTER 48 HOURS 09/03/17 12:30 Blood Culture - Preliminary Blood NO GROWTH AFTER 48 HOURS 09/03/17 12:30 Gram Stain - Final Sputum Sputum Culture - Final No growth. 09/01/17 14:14 Virus Culture - Preliminary Other: Please Indicate 09/01/17 06:15 Blood Culture - Preliminary Blood-Thru Central Line NO GROWTH AFTER 4 DAYS 09/01/17 06:15 Blood Culture - Preliminary Blood-Thru Central Line NO GROWTH AFTER 4 DAYS Lab Studies 09/05/17 09/05/17 09/05/17 Range/Units 19:01 18:07 12:39 WBC (4.8-10.8) K/uL RBC (4.40-5.90) Mil/uL Hgb (12.0-18.0) g/dL Hct (35.0-51.0) % MCV (80.0-94.0) fL MCH (27.0-31.0) pg MCHC (33.0-37.0) g/dL RDW (11.5-14.5) % Plt Count (130-400) K/uL MPV (7.2-11.7) fL Neut % (Auto) (50.0-75.0) % Lymph % (Auto) (20.0-40.0) % Cassia % (Auto) (0.0-10.0) % Eos % (Auto) (0.0-4.0) % Baso % (Auto) (0.0-2.0) % Neut # (Auto) (1.8-7.0) K/uL Lymph # (Auto) (1.0-4.3) K/uL Cassia # (Auto) (0.0-0.8) K/uL Eos # (Auto) (0.0-0.7) K/uL Baso # (Auto) (0.0-0.2) K/uL Neutrophils % (Manual) (50-75) % Band Neutrophils % (0-2) % Lymphocytes % (Manual) (20-40) % Monocytes % (Manual) (0-10) % Nucleated RBC % (0-0) % Platelet Estimate (NORMAL) Polychromasia Hypochromasia (manual) Anisocytosis (manual) Puncture Site pCO2 (35-45) mm/Hg pO2 (80-100) mm/Hg HCO3 (21-28) mmol/L ABG pH (7.35-7.45) ABG Total CO2 (22-28) mmol/L ABG O2 Saturation (95-98) % ABG Base Excess (-2.0-3.0) mmol/L Harpreet Test ABG Potassium (3.6-5.2) mmol/L A-a O2 Difference mm/Hg Respiratory Index Sodium (132-148) mmol/l Chloride (98-107) mmol/L Glucose (75-110) mg/dl Lactate (0.7-2.1) mmol/L Vent Mode Mechanical Rate FiO2 % Tidal Volume PEEP Potassium (3.6-5.2) mmol/L Carbon Dioxide (22-30) mmol/L Anion Gap (10-20) BUN (9-20) mg/dL Creatinine (0.8-1.5) mg/dL Est GFR ( Amer) Est GFR (Non-Af Amer) POC Glucose (mg/dL) 143 H 164 H (65-110) mg/dL Random Glucose (75-110) mg/dL Calcium (8.6-10.4) mg/dl Phosphorus (2.5-4.5) mg/dL Magnesium (1.6-2.3) mg/dL Total Bilirubin (0.2-1.3) mg/dL AST (17-59) U/L ALT (21-72) U/L Alkaline Phosphatase (38-126) U/L Total Creatine Kinase 178 H (55-170) U/L Total Protein (6.3-8.3) g/dL Albumin (3.5-5.0) g/dL Globulin (2.2-3.9) gm/dL Albumin/Globulin Ratio (1.0-2.1) 25-OH Vitamin D Total (30.0-100.0) NG/ML Arterial Blood Potassium (3.6-5.2) mmol/L 09/05/17 09/05/17 09/05/17 Range/Units 08:40 06:25 06:07 WBC (4.8-10.8) K/uL RBC (4.40-5.90) Mil/uL Hgb (12.0-18.0) g/dL Hct (35.0-51.0) % MCV (80.0-94.0) fL MCH (27.0-31.0) pg MCHC (33.0-37.0) g/dL RDW (11.5-14.5) % Plt Count (130-400) K/uL MPV (7.2-11.7) fL Neut % (Auto) (50.0-75.0) % Lymph % (Auto) (20.0-40.0) % Cassia % (Auto) (0.0-10.0) % Eos % (Auto) (0.0-4.0) % Baso % (Auto) (0.0-2.0) % Neut # (Auto) (1.8-7.0) K/uL Lymph # (Auto) (1.0-4.3) K/uL Cassia # (Auto) (0.0-0.8) K/uL Eos # (Auto) (0.0-0.7) K/uL Baso # (Auto) (0.0-0.2) K/uL Neutrophils % (Manual) (50-75) % Band Neutrophils % (0-2) % Lymphocytes % (Manual) (20-40) % Monocytes % (Manual) (0-10) % Nucleated RBC % (0-0) % Platelet Estimate (NORMAL) Polychromasia Hypochromasia (manual) Anisocytosis (manual) Puncture Site pCO2 (35-45) mm/Hg pO2 (80-100) mm/Hg HCO3 (21-28) mmol/L ABG pH (7.35-7.45) ABG Total CO2 (22-28) mmol/L ABG O2 Saturation (95-98) % ABG Base Excess (-2.0-3.0) mmol/L Harpreet Test ABG Potassium (3.6-5.2) mmol/L A-a O2 Difference mm/Hg Respiratory Index Sodium 135 (132-148) mmol/l Chloride 100 (98-107) mmol/L Glucose (75-110) mg/dl Lactate (0.7-2.1) mmol/L Vent Mode Mechanical Rate FiO2 % Tidal Volume PEEP Potassium 4.6 (3.6-5.2) mmol/L Carbon Dioxide 19 L (22-30) mmol/L Anion Gap 20 (10-20) BUN 119 H* D (9-20) mg/dL Creatinine 3.2 H (0.8-1.5) mg/dL Est GFR ( Amer) 24 Est GFR (Non-Af Amer) 20 POC Glucose (mg/dL) 215 H (65-110) mg/dL Random Glucose 178 H (75-110) mg/dL Calcium 4.7 L* (8.6-10.4) mg/dl Phosphorus 7.3 H (2.5-4.5) mg/dL Magnesium 2.1 (1.6-2.3) mg/dL Total Bilirubin 3.0 H (0.2-1.3) mg/dL AST 37 (17-59) U/L ALT 31 (21-72) U/L Alkaline Phosphatase 182 H (38-126) U/L Total Creatine Kinase (55-170) U/L Total Protein 5.5 L (6.3-8.3) g/dL Albumin 2.4 L (3.5-5.0) g/dL Globulin 3.0 (2.2-3.9) gm/dL Albumin/Globulin Ratio 0.8 L (1.0-2.1) 25-OH Vitamin D Total < 12.8 L (30.0-100.0) NG/ML Arterial Blood Potassium (3.6-5.2) mmol/L 09/05/17 09/05/17 09/04/17 Range/Units 06:06 05:29 23:29 WBC 0.5 L* (4.8-10.8) K/uL RBC 3.28 L (4.40-5.90) Mil/uL Hgb 9.6 L (12.0-18.0) g/dL Hct 28.5 L (35.0-51.0) % MCV 86.6 (80.0-94.0) fL MCH 29.3 (27.0-31.0) pg MCHC 33.9 (33.0-37.0) g/dL RDW 18.5 H (11.5-14.5) % Plt Count 15 L* D (130-400) K/uL MPV 9.7 (7.2-11.7) fL Neut % (Auto) 21.2 L (50.0-75.0) % Lymph % (Auto) 49.6 H (20.0-40.0) % Cassia % (Auto) 28.1 H (0.0-10.0) % Eos % (Auto) 1.1 (0.0-4.0) % Baso % (Auto) 0.0 (0.0-2.0) % Neut # (Auto) 0.1 L (1.8-7.0) K/uL Lymph # (Auto) 0.3 L (1.0-4.3) K/uL Cassia # (Auto) 0.1 (0.0-0.8) K/uL Eos # (Auto) 0.0 (0.0-0.7) K/uL Baso # (Auto) 0.0 (0.0-0.2) K/uL Neutrophils % (Manual) 46 L (50-75) % Band Neutrophils % 5 H (0-2) % Lymphocytes % (Manual) 25 (20-40) % Monocytes % (Manual) 24 H (0-10) % Nucleated RBC % 6 H (0-0) % Platelet Estimate Markedly decreased L (NORMAL) Polychromasia Slight Hypochromasia (manual) Slight Anisocytosis (manual) Moderate Puncture Site R rad pCO2 36 (35-45) mm/Hg pO2 58 L (80-100) mm/Hg HCO3 20.2 L (21-28) mmol/L ABG pH 7.34 L (7.35-7.45) ABG Total CO2 20.5 L (22-28) mmol/L ABG O2 Saturation 92.7 L (95-98) % ABG Base Excess -5.7 L (-2.0-3.0) mmol/L Harpreet Test Pos ABG Potassium 4.4 (3.6-5.2) mmol/L A-a O2 Difference 254.0 mm/Hg Respiratory Index 4.4 Sodium 136.0 (132-148) mmol/l Chloride 102.0 (98-107) mmol/L Glucose 173 H (75-110) mg/dl Lactate 1.9 (0.7-2.1) mmol/L Vent Mode Prvc Mechanical Rate 20 FiO2 50.0 % Tidal Volume 450 PEEP 5 Potassium (3.6-5.2) mmol/L Carbon Dioxide (22-30) mmol/L Anion Gap (10-20) BUN (9-20) mg/dL Creatinine (0.8-1.5) mg/dL Est GFR ( Amer) Est GFR (Non-Af Amer) POC Glucose (mg/dL) 209 H (65-110) mg/dL Random Glucose (75-110) mg/dL Calcium (8.6-10.4) mg/dl Phosphorus (2.5-4.5) mg/dL Magnesium (1.6-2.3) mg/dL Total Bilirubin (0.2-1.3) mg/dL AST (17-59) U/L ALT (21-72) U/L Alkaline Phosphatase (38-126) U/L Total Creatine Kinase (55-170) U/L Total Protein (6.3-8.3) g/dL Albumin (3.5-5.0) g/dL Globulin (2.2-3.9) gm/dL Albumin/Globulin Ratio (1.0-2.1) 25-OH Vitamin D Total (30.0-100.0) NG/ML Arterial Blood Potassium 4.4 (3.6-5.2) mmol/L 09/04/17 Range/Units 17:36 WBC (4.8-10.8) K/uL RBC (4.40-5.90) Mil/uL Hgb (12.0-18.0) g/dL Hct (35.0-51.0) % MCV (80.0-94.0) fL MCH (27.0-31.0) pg MCHC (33.0-37.0) g/dL RDW (11.5-14.5) % Plt Count (130-400) K/uL MPV (7.2-11.7) fL Neut % (Auto) (50.0-75.0) % Lymph % (Auto) (20.0-40.0) % Cassia % (Auto) (0.0-10.0) % Eos % (Auto) (0.0-4.0) % Baso % (Auto) (0.0-2.0) % Neut # (Auto) (1.8-7.0) K/uL Lymph # (Auto) (1.0-4.3) K/uL Cassia # (Auto) (0.0-0.8) K/uL Eos # (Auto) (0.0-0.7) K/uL Baso # (Auto) (0.0-0.2) K/uL Neutrophils % (Manual) (50-75) % Band Neutrophils % (0-2) % Lymphocytes % (Manual) (20-40) % Monocytes % (Manual) (0-10) % Nucleated RBC % (0-0) % Platelet Estimate (NORMAL) Polychromasia Hypochromasia (manual) Anisocytosis (manual) Puncture Site pCO2 (35-45) mm/Hg pO2 (80-100) mm/Hg HCO3 (21-28) mmol/L ABG pH (7.35-7.45) ABG Total CO2 (22-28) mmol/L ABG O2 Saturation (95-98) % ABG Base Excess (-2.0-3.0) mmol/L Harpreet Test ABG Potassium (3.6-5.2) mmol/L A-a O2 Difference mm/Hg Respiratory Index Sodium (132-148) mmol/l Chloride (98-107) mmol/L Glucose (75-110) mg/dl Lactate (0.7-2.1) mmol/L Vent Mode Mechanical Rate FiO2 % Tidal Volume PEEP Potassium (3.6-5.2) mmol/L Carbon Dioxide (22-30) mmol/L Anion Gap (10-20) BUN (9-20) mg/dL Creatinine (0.8-1.5) mg/dL Est GFR ( Amer) Est GFR (Non-Af Amer) POC Glucose (mg/dL) 236 H (65-110) mg/dL Random Glucose (75-110) mg/dL Calcium (8.6-10.4) mg/dl Phosphorus (2.5-4.5) mg/dL Magnesium (1.6-2.3) mg/dL Total Bilirubin (0.2-1.3) mg/dL AST (17-59) U/L ALT (21-72) U/L Alkaline Phosphatase (38-126) U/L Total Creatine Kinase (55-170) U/L Total Protein (6.3-8.3) g/dL Albumin (3.5-5.0) g/dL Globulin (2.2-3.9) gm/dL Albumin/Globulin Ratio (1.0-2.1) 25-OH Vitamin D Total (30.0-100.0) NG/ML Arterial Blood Potassium (3.6-5.2) mmol/L Laboratory Results - last 24 hr 09/04/17 09/04/17 09/05/17 17:36 23:29 05:29 WBC RBC Hgb Hct MCV MCH MCHC RDW Plt Count MPV Neut % (Auto) Lymph % (Auto) Cassia % (Auto) Eos % (Auto) Baso % (Auto) Neut # (Auto) Lymph # (Auto) Cassia # (Auto) Eos # (Auto) Baso # (Auto) Neutrophils % (Manual) Band Neutrophils % Lymphocytes % (Manual) Monocytes % (Manual) Nucleated RBC % Platelet Estimate Polychromasia Hypochromasia (manual) Anisocytosis (manual) Puncture Site R rad pCO2 36 pO2 58 L HCO3 20.2 L ABG pH 7.34 L ABG Total CO2 20.5 L ABG O2 Saturation 92.7 L ABG Base Excess -5.7 L Harpreet Test Pos ABG Potassium 4.4 A-a O2 Difference 254.0 Respiratory Index 4.4 Sodium 136.0 Chloride 102.0 Glucose 173 H Lactate 1.9 Vent Mode Prvc Mechanical Rate 20 FiO2 50.0 Tidal Volume 450 PEEP 5 Potassium Carbon Dioxide Anion Gap BUN Creatinine Est GFR ( Amer) Est GFR (Non-Af Amer) POC Glucose (mg/dL) 236 H 209 H Random Glucose Calcium Phosphorus Magnesium Total Bilirubin AST ALT Alkaline Phosphatase Total Creatine Kinase Total Protein Albumin Globulin Albumin/Globulin Ratio 25-OH Vitamin D Total Arterial Blood Potassium 4.4 09/05/17 09/05/17 09/05/17 06:06 06:07 06:25 WBC 0.5 L* RBC 3.28 L Hgb 9.6 L Hct 28.5 L MCV 86.6 MCH 29.3 MCHC 33.9 RDW 18.5 H Plt Count 15 L* D MPV 9.7 Neut % (Auto) 21.2 L Lymph % (Auto) 49.6 H Cassia % (Auto) 28.1 H Eos % (Auto) 1.1 Baso % (Auto) 0.0 Neut # (Auto) 0.1 L Lymph # (Auto) 0.3 L Cassia # (Auto) 0.1 Eos # (Auto) 0.0 Baso # (Auto) 0.0 Neutrophils % (Manual) 46 L Band Neutrophils % 5 H Lymphocytes % (Manual) 25 Monocytes % (Manual) 24 H Nucleated RBC % 6 H Platelet Estimate Markedly decreased L Polychromasia Slight Hypochromasia (manual) Slight Anisocytosis (manual) Moderate Puncture Site pCO2 pO2 HCO3 ABG pH ABG Total CO2 ABG O2 Saturation ABG Base Excess Harpreet Test ABG Potassium A-a O2 Difference Respiratory Index Sodium 135 Chloride 100 Glucose Lactate Vent Mode Mechanical Rate FiO2 Tidal Volume PEEP Potassium 4.6 Carbon Dioxide 19 L Anion Gap 20 BUN 119 H* D Creatinine 3.2 H Est GFR ( Amer) 24 Est GFR (Non-Af Amer) 20 POC Glucose (mg/dL) 215 H Random Glucose 178 H Calcium 4.7 L* Phosphorus 7.3 H Magnesium 2.1 Total Bilirubin 3.0 H AST 37 ALT 31 Alkaline Phosphatase 182 H Total Creatine Kinase Total Protein 5.5 L Albumin 2.4 L Globulin 3.0 Albumin/Globulin Ratio 0.8 L 25-OH Vitamin D Total Arterial Blood Potassium 09/05/17 09/05/17 09/05/17 08:40 12:39 18:07 WBC RBC Hgb Hct MCV MCH MCHC RDW Plt Count MPV Neut % (Auto) Lymph % (Auto) Cassia % (Auto) Eos % (Auto) Baso % (Auto) Neut # (Auto) Lymph # (Auto) Cassia # (Auto) Eos # (Auto) Baso # (Auto) Neutrophils % (Manual) Band Neutrophils % Lymphocytes % (Manual) Monocytes % (Manual) Nucleated RBC % Platelet Estimate Polychromasia Hypochromasia (manual) Anisocytosis (manual) Puncture Site pCO2 pO2 HCO3 ABG pH ABG Total CO2 ABG O2 Saturation ABG Base Excess Harpreet Test ABG Potassium A-a O2 Difference Respiratory Index Sodium Chloride Glucose Lactate Vent Mode Mechanical Rate FiO2 Tidal Volume PEEP Potassium Carbon Dioxide Anion Gap BUN Creatinine Est GFR ( Amer) Est GFR (Non-Af Amer) POC Glucose (mg/dL) 164 H 143 H Random Glucose Calcium Phosphorus Magnesium Total Bilirubin AST ALT Alkaline Phosphatase Total Creatine Kinase Total Protein Albumin Globulin Albumin/Globulin Ratio 25-OH Vitamin D Total < 12.8 L Arterial Blood Potassium 09/05/17 19:01 WBC RBC Hgb Hct MCV MCH MCHC RDW Plt Count MPV Neut % (Auto) Lymph % (Auto) Cassia % (Auto) Eos % (Auto) Baso % (Auto) Neut # (Auto) Lymph # (Auto) Cassia # (Auto) Eos # (Auto) Baso # (Auto) Neutrophils % (Manual) Band Neutrophils % Lymphocytes % (Manual) Monocytes % (Manual) Nucleated RBC % Platelet Estimate Polychromasia Hypochromasia (manual) Anisocytosis (manual) Puncture Site pCO2 pO2 HCO3 ABG pH ABG Total CO2 ABG O2 Saturation ABG Base Excess Harpreet Test ABG Potassium A-a O2 Difference Respiratory Index Sodium Chloride Glucose Lactate Vent Mode Mechanical Rate FiO2 Tidal Volume PEEP Potassium Carbon Dioxide Anion Gap BUN Creatinine Est GFR ( Amer) Est GFR (Non-Af Amer) POC Glucose (mg/dL) Random Glucose Calcium Phosphorus Magnesium Total Bilirubin AST ALT Alkaline Phosphatase Total Creatine Kinase 178 H Total Protein Albumin Globulin Albumin/Globulin Ratio 25-OH Vitamin D Total Arterial Blood Potassium Fingerstick Blood Sugar Results: 143
--- NOTE | 2017-09-05 23:43 | CP.PCM.PN ---
Subjective - Date & Time of Evaluation Date of Evaluation: 09/05/17 Time of Evaluation: 23:43 - Subjective Subjective: FEBRILE , PATIENT ON VENTILATOR. HYPOTENSIVE ON VASOPRESSORS REMAINS NEUTROPENIC. ON MULTIPLE ANTIBIOTICS. ROS ; NA PATIENT IS SEDATED. Objective - Vital Signs/Intake and Output Vital Signs (last 24 hours): Temp Pulse Resp BP Pulse Ox 101 F H 110 H 22 93/47 L 95 09/05/17 22:03 09/05/17 21:00 09/05/17 21:00 09/05/17 20:57 09/05/17 21:00 Intake and Output: 09/05/17 09/06/17 18:59 06:59 Intake Total 1325 175 Output Total 150 Balance 1175 175 - Medications Medications: Current Medications Acetaminophen (Tylenol 650mg/20.3ml Solution Ud) 650 mg PO Q8 PRN PRN Reason: Fever >100.4 F Last Admin: 09/05/17 22:03 Dose: 650 mg Atovaquone (Mepron) 1,500 mg PO DAILY [facility] PRN Reason: Protocol Last Admin: 09/05/17 10:38 Dose: 1,500 mg Calcitriol (Rocaltrol) 1 mcg PO DAILY [facility] Last Admin: 09/05/17 11:31 Dose: 1 mcg Calcium Acetate (Phoslo) 2,001 mg GT TIDCC [facility] Last Admin: 09/05/17 21:00 Dose: 2,001 mg Calcium Carbonate (Calcium Carbonate) 1,250 mg PO Q8H [facility] Last Admin: 09/05/17 18:06 Dose: 1,250 mg Famotidine (Pepcid) 20 mg PO DAILY [facility] Last Admin: 09/05/17 10:37 Dose: 20 mg Azithromycin 250 mg/ Sodium (Chloride) 250 mls @ 250 mls/hr IVPB Q24H [facility]N PRN Reason: Protocol Last Admin: 09/05/17 18:07 Dose: 250 mls/hr Micafungin Sodium 100 mg/ (Sodium Chloride) 100 mls @ 100 mls/hr IV Q24H [facility] PRN Reason: Protocol Last Admin: 09/05/17 03:12 Dose: 100 mls/hr Meropenem 500 mg/ Sodium (Chloride) 100 mls @ 100 mls/hr IVPB Q12 [facility] PRN Reason: Protocol Last Admin: 09/05/17 22:03 Dose: 100 mls/hr Insulin Aspart (Novolog) 0 unit SC Q6 [facility] PRN Reason: Protocol Last Admin: 09/05/17 18:08 Dose: Not Given Insulin Glargine (Lantus) 15 unit SC QAM [facility] Last Admin: 09/05/17 10:37 Dose: 15 unit Lorazepam (Ativan) 1 mg IVP Q6H PRN PRN Reason: Anxiety Last Admin: 08/29/17 21:29 Dose: 1 mg Ofloxacin (Ocuflox Ophth 0.3%) 0 ml OS TID [facility] Last Admin: 09/05/17 18:07 Dose: 2 drop Thiamine HCl (Vitamin B1 Inj) 200 mg IV Q8H [facility] Last Admin: 09/05/17 18:06 Dose: 200 mg Vitamin B Complex/Vit C/Folic Acid (Nephro-Chauncey) 1 tab PO 0800 [facility] Last Admin: 09/05/17 08:06 Dose: 1 tab - Labs Labs: 09/05/17 06:06 09/05/17 06:07 PT 15.5 SECONDS (9.7-12.2) H 09/02/17 16:39 INR 1.4 09/02/17 16:39 APTT 36 SECONDS (21-34) H D 08/31/17 14:07 - Constitutional Appears: No Acute Distress, Chronically Ill - Head Exam Head Exam: NORMOCEPHALIC - Eye Exam Eye Exam: PERRL, Scleral icterus - ENT Exam ENT Exam: Mucous Membranes Dry - Neck Exam Neck Exam: Normal Inspection - Respiratory Exam Respiratory Exam: Decreased Breath Sounds (LT LUNG .), Prolonged Expiratory Phase - Cardiovascular Exam Cardiovascular Exam: Tachycardia, REGULAR RHYTHM, +S1, +S2 - GI/Abdominal Exam GI & Abdominal Exam: Soft, Normal Bowel Sounds - Extremities Exam Extremities Exam: Normal Capillary Refill, Pedal Edema. absent: Calf Tenderness - Neurological Exam Neurological Exam: Altered - Skin Skin Exam: Dry, Warm Assessment and Plan (1) Pancytopenia Status: Acute (2) Abdominal pain Status: Acute (3) Esophagitis Status: Acute (4) Metastatic malignant neoplasm to prostate Status: Acute - Assessment and Plan (Free Text) Assessment: RESPIRATORY FAILURE NEUTROPENIC FEVERS /MULTIORGAN FAILURE PNEUMONIA - LEGIONELLA ANTIGEN POSITIVE ( ? LEGIONELLA PNEUMOPHILLA ) S/P FOB 09/01/17 METASTATIC CA PROSTRATE. STAGE 1V HX OF ESOPHAGITIS VI S/P EGD ABNORMAL LIVER FUNCTION TESTS-SHOCK LIVER VS CHOLESTASIS VS LEGIONELLOSIS ACUTE RENAL FAILURE SEC SHOCK/HYPOTENSION ON HD ? EARLY DIC PLAN : ADD IV VANCOMYCIN 1GM IVPB POST HD TODAY IF VANC RANDOM <10.AND THEN 1 GM POST EACH HD MWF X 5 DOSES. 09/03/17 . DECREASE iv MERREM 500 MG IV Q 12HRLY . 08/26/17 .ON IV AZITHROMICIN 250MG IV PB [id number] ON IV MYCAFUNGIN 100MG IV [id number] 08/31/17. CONTINUE MEPRON 1500 MG OD DAILY. 08/27/17 (NO DOSAGE ADJUSTMENT IN RENALFAILURE ) PATIENT NOT A CANDIDATE FOR PENTAMADINE IN VIEW OF HYPOTENSION,RENAL FAILURE , THROMBOCYTOPENIA AND NEUROTOXICITY. CHECK GLUCOSE 6 PHOSPHATE LEVELS. ON IV STEROIDS ORDERED BY INTENSIVISTS.50 MG EVERY 8 HOURLY 08/31/17 NEUTROPENIC PRECAUTIONS. PULMONARY TOILET. F/U [employer],FUNGUS.PCP, VIRAL S/P FOB. F/U [employer] FOR LEGINELLA CULTURE. (SENT 08/27/[address] Luciano CARLTON ) PROGNOSIS GRAVE. CASE DISCUSSED WITH STAFF.
[2017-09-06] MEDS: (Novolog) Insulin Aspart, Recombinant 100 u/ml 10 ml vial SC SCH ×4 (00:56→18:39)
[2017-09-06] MEDS: Thiamine 100 mg/ml Inj IV SCH ×3 (00:57→16:10)
[2017-09-06] MEDS: Micafungin 100 MG in Sodium Chloride 0.9% 100 ML IV SCH (02:17)
[2017-09-06 06:02] LABS: EOS % 1.7 % (0.0-4.0); HEMOGLOBIN 8.4 g/dL (12.0-18.0); LYMPH # 0.1 K/uL (1.0-4.3); LYMPH % 43.6 % (20.0-40.0); MEAN CELL VOLUME 86.4 fL (80.0-94.0); MEAN CORPUSCULAR HEMOGLOBIN 29.4 pg (27.0-31.0); MEAN PLATELET VOLUME 10.2 fL (7.2-11.7); MONO % 38.7 % (0.0-10.0); NRBC % 53.3 % (0.0-2.0); RBC 2.85 Mil/uL (4.40-5.90)
[2017-09-06 06:19] LABS: WHITE BLOOD COUNT 0.1 K/uL (4.8-10.8)
[2017-09-06 06:36] LABS: ALB/GLOB RATIO 0.9 (1.0-2.1); ALBUMIN 2.4 g/dL (3.5-5.0); CALCIUM 5.3 mg/dl (8.6-10.4)
[2017-09-06 06:53] LABS: ABG ALLEN TEST NEG; ARTERIAL BLOOD GAS HCO3 18.9 mmol/L (21-28); ARTERIAL BLOOD GAS HEMOGLOBIN 7.1 g/dL (11.7-17.4); ARTERIAL BLOOD GAS O2 SAT 80.7 % (95-98); ARTERIAL BLOOD GAS PCO2 41 mm/Hg (35-45); ARTERIAL BLOOD GAS PH 7.27 (7.35-7.45); ARTERIAL BLOOD GAS PO2 41 mm/Hg (80-100); ARTERIAL BLOOD GAS TCO2 20.1 mmol/L (22-28)
--- NOTE | 2017-09-06 07:38 | RAD ---
Chest x-ray single frontal view History: Follow-up. Comparison: 09/05/2017 Findings: Endotracheal tube extending into the mid thoracic trachea. NG tube extending into stomach. Right central venous catheter extending into the right SVC. Complete opacification of the left pari thorax with a few air bronchograms. Right hilar prominence. Heart obscured. Degenerative changes in the spine. Prominent degenerative changes or diastases at the bilateral shoulder joints. Impression: No significant interval change.
[2017-09-06] MEDS: Multivitamin Vitamin B Complex (Nephro-Vite) Tab PO SCH (08:06)
[2017-09-06] MEDS: Acetaminophen 650mg/20.3ml solution UD PO PRN (08:31)
--- NOTE | 2017-09-06 08:34 | RAD ---
Chest x-ray single frontal view History: Intubated. Comparison: 09/05/2017 Findings: Lines and tubes in stable position. Complete opacification of the left pari thorax with a few air bronchograms. Mild nodularity at the right lung base. Right hilar consolidative changes. Heart is obscured. Degenerative changes in the spine. Impression: Lines and tubes in stable position. Complete opacification of the left pari thorax with a few air bronchograms. Mild nodularity at the right lung base. Right hilar consolidative changes.
--- NOTE | 2017-09-06 09:32 | CARD ---
APPROVED REPORT Date of service: 08/29/2017 EKG Measurement Heart [id number] <Conclusion> Sinus tachycardia Prolonged QT Abnormal ECG
[2017-09-06] MEDS ORDERED: Sodium Chloride 0.9% 1,000 ML IV ONE (09:33)
[2017-09-06] MEDS: Meropenem 500 MG in Sodium Chloride 0.9% 100 ML IVPB SCH (09:45)
[2017-09-06] MEDS: Ofloxacin 0.3% Ophth Soln OS SCH ×3 (10:17→17:21)
[2017-09-06] MEDS: (Lantus) Insulin Glargine, Recombinant SC SCH (10:33)
--- NOTE | 2017-09-06 11:09 | CP.PCM.PN ---
Subjective - Date & Time of Evaluation Date of Evaluation: 09/06/17 Time of Evaluation: 11:05 - Subjective Subjective: Nephrology Consultation Note: Assessment: critical oligoanuric Acute Kidney Injury (N17.9) likely ATN due to septic shock started HD 09/01/17 Neutropenic fever/pancytopenia with Left lung pneumonia with legionella s/p bronch 09/01/17 abnormal LFT with hyperbilirubinemia metastatic prostate CA on chemo/radiation acute respi failure s/p mechanical ventilation combined respi and metabolic acidosis Hypocalcemia, hyponatremia Plan HD tomorrow pt unstable hemodyanmically, now on pressors w/ high fio2 cont calcium supplementation, continue phos, cpk normal, ioniezd calcium ordered. Suspect high urea/low calcium related to high catabolic stage given high fio2 and xray finding may need to consider bronch of L lung however pt is quite unstable S: seen and examined intubated and sedated, cxr reviewed, now on pressors and 100% fio2 Physical Examination: General Appearance: intubated and sedated Vitals reviewed and noted as below Head; Atraumatic, normocephalic. ENT: orally intubated Neck; supple no lymphadenopathy, no thyromegaly or bruit Lungs: Normal respiratory rate/effort. breath sound reduced at bases Heart: Normal rate. s1s2 normal. No rub or gallop. Extremities: 1-2+ edema. No varicose veins Neurological: Patient is sedated Skin: Warm and dry. Normal turgor. No rash. Palpitation: Normal elasticity for age Abdomen: Abdomen is soft. Bowel sounds +. There is no abdominal tenderness, no guarding/rigidity no organomegaly Psych: unable to assess intubated and sedated MSK: no joint tenderness or swelling. Digits and nails normal, no deformity : kidney or bladder not palpable. has montemayor catheter, no scrotal swelling access: rt femoral shiley Objective - Vital Signs/Intake and Output Vital Signs (last 24 hours): Temp Pulse Resp BP Pulse Ox 103.5 F H 121 H 25 H 95/51 L 73 L 09/06/17 09:31 09/06/17 11:00 09/06/17 11:00 09/06/17 11:00 09/06/17 11:00 Intake and Output: 09/06/17 09/06/17 06:59 18:59 Intake Total 735 574.6 Balance 735 574.6 - Medications Medications: Current Medications Acetaminophen (Tylenol 650mg/20.3ml Solution Ud) 650 mg PO Q8 PRN PRN Reason: Fever >100.4 F Last Admin: 09/06/17 08:31 Dose: 650 mg Atovaquone (Mepron) 1,500 mg PO DAILY RENAN PRN Reason: Protocol Last Admin: 09/05/17 10:38 Dose: 1,500 mg Calcitriol (Rocaltrol) 1 mcg PO DAILY RENAN Last Admin: 09/05/17 11:31 Dose: 1 mcg Calcium Acetate (Phoslo) 2,001 mg GT TIDCC [facility] Last Admin: 09/06/17 08:06 Dose: 2,001 mg Calcium Carbonate (Calcium Carbonate) 1,250 mg PO Q8H [facility] Last Admin: 09/06/17 02:16 Dose: 1,250 mg Famotidine (Pepcid) 20 mg PO DAILY [facility] Last Admin: 09/05/17 10:37 Dose: 20 mg Azithromycin 250 mg/ Sodium (Chloride) 250 mls @ 250 mls/hr IVPB Q24H RENAN PRN Reason: Protocol Last Admin: 09/05/17 18:07 Dose: 250 mls/hr Micafungin Sodium 100 mg/ (Sodium Chloride) 100 mls @ 100 mls/hr IV Q24H RENAN PRN Reason: Protocol Last Admin: 09/06/17 02:17 Dose: 100 mls/hr Meropenem 500 mg/ Sodium (Chloride) 100 mls @ 100 mls/hr IVPB Q12 RENAN PRN Reason: Protocol Last Admin: 09/06/17 09:45 Dose: 100 mls/hr Norepinephrine Bitartrate 4 mg (/ Sodium Chloride) 254 mls @ 15.24 mls/hr IV .[id number] PRN; Protocol; 4 MCG/MIN PRN Reason: TITRATE PER MD ORDER Last Titration: 09/06/17 09:00 Dose: 6 mcg/min, 22.86 mls/hr Vasopressin 40 units/ Sodium (Chloride) 40 mls @ 0.6 mls/hr IV .Q24H RENAN; 0.01 UNITS/MIN PRN Reason: Protocol Last Admin: 09/06/17 10:05 Dose: 0.01 units/min, 0.6 mls/hr Sodium Chloride (Sodium Chloride 0.9%) 1,000 mls @ 250 mls/hr IV .Q4H ONE Stop: 09/06/17 13:32 Last Admin: 09/06/17 09:50 Dose: 250 mls/hr Insulin Aspart (Novolog) 0 unit SC Q6 RENAN PRN Reason: Protocol Last Admin: 09/06/17 06:00 Dose: Not Given Insulin Glargine (Lantus) 15 unit SC QAM [facility] Last Admin: 09/06/17 10:33 Dose: Not Given Lorazepam (Ativan) 1 mg IVP Q6H PRN PRN Reason: Anxiety Last Admin: 08/29/17 21:29 Dose: 1 mg Ofloxacin (Ocuflox Ophth 0.3%) 0 ml OS TID [facility] Last Admin: 09/06/17 10:17 Dose: 2 drop Thiamine HCl (Vitamin B1 Inj) 200 mg IV Q8H [facility] Last Admin: 09/06/17 08:06 Dose: 200 mg Vitamin B Complex/Vit C/Folic Acid (Nephro-Chauncey) 1 tab PO 0800 [facility] Last Admin: 09/06/17 08:06 Dose: 1 tab - Labs Labs: 09/06/17 05:53 09/06/17 05:54 PT 15.5 SECONDS (9.7-12.2) H 09/02/17 16:39 INR 1.4 09/02/17 16:39 APTT 36 SECONDS (21-34) H D 08/31/17 14:07
[2017-09-06] MEDS: Calcitriol 1 mcg/ml Oral Soln (15 ml) PO SCH (11:15)
[2017-09-06] MEDS: Atovaquone 750 mg/5 ml Susp UD PO SCH (11:16)
[2017-09-06] MEDS ORDERED: Vancomycin 1 gm/NS 200 ml 1 GM/200 ML BAG IVPB ONE (14:00)
--- NOTE | 2017-09-06 15:19 | CP.PCM.PN ---
Subjective - Date & Time of Evaluation Date of Evaluation: 09/06/17 Time of Evaluation: 15:16 - Subjective Subjective: CHART REVIEWED. PT SEEN AND EXAMINED., COVERING DR Osmin CARLTON. PT INTUBATED. ROS ; UNOBTAINABLE. - Constitutional Appears: Well - Head Exam Head Exam: ATRAUMATIC, NORMAL INSPECTION, NORMOCEPHALIC - Eye Exam Eye Exam: EOMI, Normal appearance, PERRL Pupil Exam: NORMAL ACCOMODATION, PERRL - ENT Exam ENT Exam: Mucous Membranes Moist, Normal Exam - Neck Exam Neck Exam: Full ROM, Normal Inspection. absent: Lymphadenopathy - Respiratory Exam Respiratory Exam: Decreased Breath Sounds - Cardiovascular Exam Cardiovascular Exam: REGULAR RHYTHM, +S1, +S2 - GI/Abdominal Exam GI & Abdominal Exam: Soft, Diminished Bowel Sounds - Rectal Exam Rectal Exam: Deferred Assessment and Plan (1) Acute respiratory failure Status: Acute (2) Anemia Status: Acute (3) Chronic pain Status: Acute (4) Esophagitis Status: Acute (5) Gastritis Status: Acute (6) Pancytopenia Status: Acute (7) Abdominal pain Status: Acute (8) Chest discomfort Status: Acute (9) Constipation Status: Acute (10) Intractable abdominal pain Status: Acute (11) Metastatic malignant neoplasm to prostate Status: Acute (12) Neutropenia Status: ACUTE Objective - Vital Signs/Intake and Output Vital Signs (last 24 hours): Temp Pulse Resp BP Pulse Ox 99.1 F 107 H 25 H 97/53 L 62 L 09/06/17 14:00 09/06/17 14:00 09/06/17 14:00 09/06/17 14:00 09/06/17 14:00 Intake and Output: 09/06/17 09/06/17 06:59 18:59 Intake Total 735 1907.0 Balance 735 1907.0 - Medications Medications: Current Medications Acetaminophen (Tylenol 650mg/20.3ml Solution Ud) 650 mg PO Q8 PRN PRN Reason: Fever >100.4 F Last Admin: 09/06/17 08:31 Dose: 650 mg Atovaquone (Mepron) 1,500 mg PO DAILY RENAN PRN Reason: Protocol Last Admin: 09/06/17 11:16 Dose: 1,500 mg Calcitriol (Rocaltrol) 1 mcg PO DAILY [facility] Last Admin: 09/06/17 11:15 Dose: 1 mcg Calcium Acetate (Phoslo) 2,001 mg GT TIDCC [facility] Last Admin: 09/06/17 12:39 Dose: 2,001 mg Calcium Carbonate (Calcium Carbonate) 1,250 mg PO Q8H [facility] Last Admin: 09/06/17 11:15 Dose: 1,250 mg Famotidine (Pepcid) 20 mg PO DAILY [facility] Last Admin: 09/06/17 11:14 Dose: 20 mg Azithromycin 250 mg/ Sodium (Chloride) 250 mls @ 250 mls/hr IVPB Q24H RENAN PRN Reason: Protocol Last Admin: 09/05/17 18:07 Dose: 250 mls/hr Micafungin Sodium 100 mg/ (Sodium Chloride) 100 mls @ 100 mls/hr IV Q24H RENAN PRN Reason: Protocol Last Admin: 09/06/17 02:17 Dose: 100 mls/hr Meropenem 500 mg/ Sodium (Chloride) 100 mls @ 100 mls/hr IVPB Q12 RENAN PRN Reason: Protocol Last Admin: 09/06/17 09:45 Dose: 100 mls/hr Norepinephrine Bitartrate 4 mg (/ Sodium Chloride) 254 mls @ 15.24 mls/hr IV .[id number] PRN; Protocol; 4 MCG/MIN PRN Reason: TITRATE PER MD ORDER Last Admin: 09/06/17 12:34 Dose: 12 mcg/min, 45.72 mls/hr Vasopressin 40 units/ Sodium (Chloride) 40 mls @ 0.6 mls/hr IV .Q24H RENAN; 0.01 UNITS/MIN PRN Reason: Protocol Last Admin: 09/06/17 10:05 Dose: 0.01 units/min, 0.6 mls/hr Vancomycin/Sodium Chloride (Vancomycin 1 Gm/Ns 200 Ml) 1 gm in 200 mls @ 133.333 mls/hr IVPB ONCE ONE PRN Reason: Protocol Stop: 09/06/17 15:29 Last Admin: 09/06/17 12:59 Dose: 133.333 mls/hr Insulin Aspart (Novolog) 0 unit SC Q6 RENAN PRN Reason: Protocol Last Admin: 09/06/17 12:08 Dose: Not Given Insulin Glargine (Lantus) 15 unit SC QAM [facility] Last Admin: 07/15/18 10:33 Dose: Not Given Lorazepam (Ativan) 1 mg IVP Q6H PRN PRN Reason: Anxiety Last Admin: 08/29/17 21:29 Dose: 1 mg Ofloxacin (Ocuflox Ophth 0.3%) 0 ml OS TID [facility] Last Admin: 09/06/17 12:59 Dose: 2 drop Thiamine HCl (Vitamin B1 Inj) 200 mg IV Q8H [facility] Last Admin: 09/06/17 08:06 Dose: 200 mg Vitamin B Complex/Vit C/Folic Acid (Nephro-Chauncey) 1 tab PO 0800 [facility] Last Admin: 09/06/17 08:06 Dose: 1 tab - Labs Labs: 09/06/17 05:53 09/06/17 05:54 PT 15.5 SECONDS (9.7-12.2) H 09/02/17 16:39 INR 1.4 09/02/17 16:39 APTT 36 SECONDS (21-34) H D 08/31/17 14:07 - Constitutional Appears: Toxic, Chronically Ill - Head Exam Head Exam: ATRAUMATIC, NORMOCEPHALIC - Eye Exam Eye Exam: Normal appearance - ENT Exam Additional comments: ORAL ETT +OGT - Respiratory Exam Respiratory Exam: Rhonchi - Cardiovascular Exam Cardiovascular Exam: Tachycardia, RRR, +S1, +S2 - GI/Abdominal Exam GI & Abdominal Exam: Soft - Rectal Exam Rectal Exam: Deferred - Extremities Exam Additional comments: LE EDEMA BILAT. - Neurological Exam Additional comments: UNRESPONSIVE. Assessment and Plan (1) ESRD (end stage renal disease) Status: Acute (2) Pneumonia Status: Acute (3) Acute respiratory failure Status: Acute (4) Pancytopenia Status: Acute (5) Septic shock Status: Acute (6) Metastatic malignant neoplasm to prostate Status: Acute - Assessment and Plan (Free Text) Assessment: CLINICALLY DETERIORATING., HYPOTENSIVE ON MULT IV PRESSORS., CONT AC SUPPORT., MAX FIO2 INCREASED PEEP. CONT PULM TOILET. MONITOR O2 SAT.CXR REVIEWED, ADD MUCOMYST. CONT AB PER ID. HD PER RENAL., CONT IV AB., ON NEUTROPENIC PRECAUTIONS, PROG GRIM., DISCUSSED WITH STAFF AT LENGTH AND FAMILY AT BEDSIDE.
[2017-09-06] MEDS: Azithromycin 250 MG in Sodium Chloride 0.9% 250 ML IVPB SCH (16:10)
[2017-09-06 16:36] VITALS: TEMP 98.7
[2017-09-06] MEDS ORDERED: Dextrose 50% SYRINGE Inj (50 ml) IV STA ×2 (17:36→17:40)
[2017-09-06] MEDS ORDERED: Dextrose 50% SYRINGE Inj (50 ml) ONE (17:38)
[2017-09-06 18:17] LABS: ARTERIAL BLOOD GAS HCO3 8.2 mmol/L (21-28); ARTERIAL BLOOD GAS O2 SAT 57.3 % (95-98); ARTERIAL BLOOD GAS PCO2 60 mm/Hg (35-45); ARTERIAL BLOOD GAS PH 6.95 (7.35-7.45); ARTERIAL BLOOD GAS PO2 36 mm/Hg (80-100)
[2017-09-06] MEDS ORDERED: Sodium Bicarbonate (8.4%) 50 Meq Syringe IVP ONE ×2 (18:20→18:28)
[2017-09-06 18:23] VITALS: RESP 30
[2017-09-06] MEDS ORDERED: DOPamine 400mg/250ml D5W 400 MG/250 ML BAG IV PRN (18:29)
--- NOTE | 2017-09-06 18:35 | CP.CCUPN ---
CCU Subjective - Physician Review Events Since Last Encounter (Free Text): 09/06/17 18:28 Since yesterday patient started desaturation. Last night the patient has a severe hypoxia. FiO2 was increased to 100%. Patient blood pressure dropped a significant. This morning patient was on Levothroid. Vasopressin ordered. Patient become more acidotic. Even though patient wasn't responding his overall condition was worsening. Spoke to the patient's family in detail. Contiguously was informed about the patient's overall condition Around 6:30 PM patient become more bradycardic. I spoke to the patient's family in detail. PH is 6.9. Severe hypoxia noted. Oxygen saturation is only 30 Even though patient is on 100%, rate of 30, and a PEEP of 10 no oxygenation improvement noted. Patient developed a fever around last night and this morning. Added vancomycin on top of the other antibiotic patient was given. Patient overall not improving. After discussion with the family they don't want any CPR. Will continue the current aggressive treatment. Family is at bedside most of the family members are at bedside. Patient persistently having neutropenia not responding to treatment. Metastatic prostatic cancer, infiltrating to the bone marrow Sepsis. Septic shock. Multiorgan failure. Severe pneumonia. Acute ARDS. Very poor prognosis is critical condition. CCU Objective - Vital Signs / Intake & Output Vital Signs (Last 4 hours): Vital Signs Temp Pulse Resp BP Pulse Ox 09/06/17 18:21 97 H 30 H 116/72 64 L 09/06/17 17:00 112 H 26 H 99/52 L 54 L 09/06/17 16:30 111 H 24 106/57 L 61 L 09/06/17 16:00 98.7 F 105 H 25 H 102/54 L 58 L 09/06/17 15:30 107 H 25 H 102/58 L 66 L 09/06/17 15:00 107 H 25 H 105/59 L 66 L 09/06/17 14:30 108 H 24 101/53 L 60 L Intake and Output (Last 8hrs): Intake & Output 09/06/17 09/06/17 09/06/17 06:59 14:59 22:59 Intake Total 435 1957.0 845.2 Balance 435 1957.0 845.2 Weight 181 lb Intake: IV 254 254 Intake, IV Amount 175 1523.0 591.2 Right Distal Port 100 1250 500 Internal Jugular Right Medial Port 75 270.0 90 Right Proximal Port 3.0 1.2 Tube Feeding 200 100 0 Albumin 30 Other 30 80 Other: # Bowel Movements 1 1 - Physical Exam Head: Positive for: Atraumatic, Normocephalic Pupils: Positive for: Sluggish Conjunctiva: Positive for: Injected (left eye injected and swollen) Mouth: Positive for: Moist Mucous Membranes Respiratory/Chest: Positive for: Decreased Breath Sounds (L>R) Cardiovascular: Positive for: Regular Rate and Rhythm. Negative for: Murmurs Abdomen: Positive for: Distention, Normal Bowel Sounds Upper Extremity: Positive for: Normal Inspection, Edema (edema developing). Negative for: Cyanosis Lower Extremity: Positive for: Normal Inspection, Edema (edema developing) Neurological: Negative for: GCS=15 Skin: Positive for: Normal Color, Hot Psychiatric: Negative for: Alert - Medications Active Medications: Active Medications Generic Name Dose Route Start Last Admin Trade Name Freq PRN Reason Stop Dose Admin Acetaminophen 650 mg 08/30/17 20:45 09/06/17 08:31 Tylenol 650mg/20.3ml Solution Ud PO 650 mg Q8 PRN Administration Fever >100.4 F Atovaquone 1,500 mg 08/27/17 13:30 09/06/17 11:16 Mepron PO 1,500 mg DAILY RENAN Administration Protocol Calcitriol 1 mcg 09/04/17 10:00 09/06/17 11:15 Rocaltrol PO 1 mcg DAILY RENAN Administration Calcium Acetate 2,001 mg 09/05/17 20:00 09/06/17 12:39 Phoslo GT 2,001 mg TIDCC RENAN Administration Calcium Carbonate 1,250 mg 09/05/17 10:00 09/06/17 11:15 Calcium Carbonate PO 1,250 mg Q8H RENAN Administration Famotidine 20 mg 09/05/17 10:00 09/06/17 11:14 Pepcid PO 20 mg DAILY RENAN Administration Azithromycin 250 mg/ Sodium 250 mls @ 250 mls/hr 09/01/17 17:00 09/06/17 16: 10 Chloride IVPB 250 mls/hr Q24H RENAN Administration Protocol Micafungin Sodium 100 mg/ 100 mls @ 100 mls/hr 09/01/17 02:45 09/06/17 02:17 Sodium Chloride IV 100 mls/hr Q24H RENAN Administration Protocol Meropenem 500 mg/ Sodium 100 mls @ 100 mls/hr 09/04/17 22:00 09/06/17 09:45 Chloride IVPB 100 mls/hr Q12 RENAN Administration Protocol Norepinephrine Bitartrate 4 mg 254 mls @ 15.24 mls/hr 09/06/17 02:07 18:21 / Sodium Chloride IV 12 mcg/min .[id number] PRN 45.72 mls/hr TITRATE PER MD ORDER Administration Protocol 4 MCG/MIN Vasopressin 40 units/ Sodium 40 mls @ 0.6 mls/hr 09/06/17 10:30 09/06/17 10: 05 Chloride IV 0.01 units/min .Q24H RENAN 0.6 mls/hr Protocol Administration 0.01 UNITS/MIN Insulin Aspart 0 unit 08/27/17 18:00 09/06/17 12:08 Novolog SC Not Given Q6 [facility] Protocol Insulin Glargine 15 unit 08/30/17 10:00 09/06/17 10:33 Lantus SC Not Given QAM [facility] Lorazepam 1 mg 08/29/17 21:13 08/29/17 21:29 Ativan IVP 1 mg Q6H PRN Administration Anxiety Ofloxacin 0 ml 09/04/17 10:00 09/06/17 17:21 Ocuflox Ophth 0.3% OS 2 drop TID RENAN Administration Sodium Bicarbonate 50 meq 09/06/17 18:28 Sodium Bicarbonate (8.4%) 50 Meq Syringe IVP 09/06/17 18:29 ONCE ONE Thiamine HCl 200 mg 09/04/17 16:45 09/06/17 16:10 Vitamin B1 Inj IV 200 mg Q8H RENAN Administration Vitamin B Complex/Vit C/Folic Acid 1 tab 09/01/17 08:00 09/06/17 08:06 Nephro-Chauncey PO 1 tab 0800 [facility] Administration - Patient Studies Lab Studies: Microbiology Studies 09/03/17 13:05 Blood Culture - Preliminary Blood NO GROWTH AFTER 3 DAYS 09/03/17 12:30 Blood Culture - Preliminary Blood NO GROWTH AFTER 3 DAYS 08/28/17 11:43 Mycobacterial Culture - Preliminary Other: Please Indicate 09/01/17 06:15 Blood Culture - Final Blood-Thru Central Line NO GROWTH AFTER 5 DAYS Gram Stain - Final TEST NOT PERFORMED 09/01/17 06:15 Blood Culture - Final Blood-Thru Central Line NO GROWTH AFTER 5 DAYS Gram Stain - Final TEST NOT PERFORMED Lab Studies 09/06/17 09/06/17 09/06/17 Range/Units 18:05 17:53 17:35 WBC (4.8-10.8) K/uL RBC (4.40-5.90) Mil/uL Hgb (12.0-18.0) g/dL Hct (35.0-51.0) % MCV (80.0-94.0) fL MCH (27.0-31.0) pg MCHC (33.0-37.0) g/dL RDW (11.5-14.5) % Plt Count (130-400) K/uL MPV (7.2-11.7) fL Neut % (Auto) (50.0-75.0) % Lymph % (Auto) (20.0-40.0) % Gaston % (Auto) (0.0-10.0) % Eos % (Auto) (0.0-4.0) % Baso % (Auto) (0.0-2.0) % Neut # (Auto) (1.8-7.0) K/uL Lymph # (Auto) (1.0-4.3) K/uL Gaston # (Auto) (0.0-0.8) K/uL Eos # (Auto) (0.0-0.7) K/uL Baso # (Auto) (0.0-0.2) K/uL Total Counted Neutrophils % (Manual) Band Neutrophils % Lymphocytes % (Manual) Reactive Lymphs % Monocytes % (Manual) Eosinophils % (Manual) Basophils % (Manual) Metamyelocytes % Myelocytes % Promyelocytes % Blast Cells % Plasma Cell % (Manual) Nucleated RBC % Hypersegmented Polys Smudge Cells Toxic Granulation Dohle Bodies Vonda Rods Platelet Estimate Plt Clumps, EDTA Large Platelets Giant Platelets RBC Morphology Polychromasia Hypochromasia (manual) Poikilocytosis (manual Basophilic Stippling Anisocytosis (manual) Microcytosis (manual) Macrocytosis (manual) Spherocytes Sickle Cells Target Cells Tear Drop Cells Ovalocytes Stomatocytes Helmet Cells [place] Bodies Courtney Cells Acanthocytes (Spur) Rouleaux Schistocytes Puncture Site Rradial pCO2 60 H (35-45) mm/Hg pO2 36 L* (80-100) mm/Hg HCO3 8.2 L* (21-28) mmol/L ABG pH 6.95 L* (7.35-7.45) ABG Total CO2 15.0 L (22-28) mmol/L ABG O2 Saturation 57.3 L (95-98) % ABG Base Excess -19.3 L (-2.0-3.0) mmol/L ABG Hemoglobin (11.7-17.4) g/dL ABG Carboxyhemoglobin (0.5-1.5) % POC ABG HHb (Measured) (0.0-5.0) % ABG Methemoglobin (0.0-3.0) % Harpreet Test Na A-a O2 Difference 602.0 mm/Hg Respiratory Index 16.7 Hgb O2 Saturation (95.0-98.0) % Vent Mode Prvc Mechanical Rate 20 FiO2 100.0 % Tidal Volume 450 PEEP 7 Crit Value Called To Dr. root Crit Value Called By Corrina montoya rcp Crit Value Read Back Y Blood Gas Notified Time 1814 Sodium (132-148) mmol/L Potassium (3.6-5.2) mmol/L Chloride (98-107) mmol/L Carbon Dioxide (22-30) mmol/L Anion Gap (10-20) BUN (9-20) mg/dL Creatinine (0.8-1.5) mg/dL Est GFR ( Amer) Est GFR (Non-Af Amer) POC Glucose (mg/dL) 195 H < 20 L* (65-110) mg/dL Random Glucose (75-110) mg/dL Calcium (8.6-10.4) mg/dl Phosphorus (2.5-4.5) mg/dL Magnesium (1.6-2.3) mg/dL Total Bilirubin (0.2-1.3) mg/dL AST (17-59) U/L ALT (21-72) U/L Alkaline Phosphatase (38-126) U/L Total Creatine Kinase (55-170) U/L Total Protein (6.3-8.3) g/dL Albumin (3.5-5.0) g/dL Globulin (2.2-3.9) gm/dL Albumin/Globulin Ratio (1.0-2.1) 09/06/17 09/06/17 09/06/17 Range/Units 17:33 12:06 06:03 WBC (4.8-10.8) K/uL RBC (4.40-5.90) Mil/uL Hgb (12.0-18.0) g/dL Hct (35.0-51.0) % MCV (80.0-94.0) fL MCH (27.0-31.0) pg MCHC (33.0-37.0) g/dL RDW (11.5-14.5) % Plt Count (130-400) K/uL MPV (7.2-11.7) fL Neut % (Auto) (50.0-75.0) % Lymph % (Auto) (20.0-40.0) % Gaston % (Auto) (0.0-10.0) % Eos % (Auto) (0.0-4.0) % Baso % (Auto) (0.0-2.0) % Neut # (Auto) (1.8-7.0) K/uL Lymph # (Auto) (1.0-4.3) K/uL Gaston # (Auto) (0.0-0.8) K/uL Eos # (Auto) (0.0-0.7) K/uL Baso # (Auto) (0.0-0.2) K/uL Total Counted Neutrophils % (Manual) Band Neutrophils % Lymphocytes % (Manual) Reactive Lymphs % Monocytes % (Manual) Eosinophils % (Manual) Basophils % (Manual) Metamyelocytes % Myelocytes % Promyelocytes % Blast Cells % Plasma Cell % (Manual) Nucleated RBC % Hypersegmented Polys Smudge Cells Toxic Granulation Dohle Bodies Vonda Rods Platelet Estimate Plt Clumps, EDTA Large Platelets Giant Platelets RBC Morphology Polychromasia Hypochromasia (manual) Poikilocytosis (manual Basophilic Stippling Anisocytosis (manual) Microcytosis (manual) Macrocytosis (manual) Spherocytes Sickle Cells Target Cells Tear Drop Cells Ovalocytes Stomatocytes Helmet Cells [place] Bodies Courtney Cells Acanthocytes (Spur) Rouleaux Schistocytes Puncture Site pCO2 (35-45) mm/Hg pO2 (80-100) mm/Hg HCO3 (21-28) mmol/L ABG pH (7.35-7.45) ABG Total CO2 (22-28) mmol/L ABG O2 Saturation (95-98) % ABG Base Excess (-2.0-3.0) mmol/L ABG Hemoglobin (11.7-17.4) g/dL ABG Carboxyhemoglobin (0.5-1.5) % POC ABG HHb (Measured) (0.0-5.0) % ABG Methemoglobin (0.0-3.0) % Harpreet Test A-a O2 Difference mm/Hg Respiratory Index Hgb O2 Saturation (95.0-98.0) % Vent Mode Mechanical Rate FiO2 % Tidal Volume PEEP Crit Value Called To Crit Value Called By Crit Value Read Back Blood Gas Notified Time Sodium (132-148) mmol/L Potassium (3.6-5.2) mmol/L Chloride (98-107) mmol/L Carbon Dioxide (22-30) mmol/L Anion Gap (10-20) BUN (9-20) mg/dL Creatinine (0.8-1.5) mg/dL Est GFR ( Amer) Est GFR (Non-Af Amer) POC Glucose (mg/dL) 22 L* 84 82 (65-110) mg/dL Random Glucose (75-110) mg/dL Calcium (8.6-10.4) mg/dl Phosphorus (2.5-4.5) mg/dL Magnesium (1.6-2.3) mg/dL Total Bilirubin (0.2-1.3) mg/dL AST (17-59) U/L ALT (21-72) U/L Alkaline Phosphatase (38-126) U/L Total Creatine Kinase (55-170) U/L Total Protein (6.3-8.3) g/dL Albumin (3.5-5.0) g/dL Globulin (2.2-3.9) gm/dL Albumin/Globulin Ratio (1.0-2.1) 09/06/17 09/06/17 09/06/17 Range/Units 06:00 05:54 05:53 WBC 0.1 L* D (4.8-10.8) K/uL RBC 2.85 L (4.40-5.90) Mil/uL Hgb 8.4 L (12.0-18.0) g/dL Hct 24.6 L (35.0-51.0) % MCV 86.4 (80.0-94.0) fL MCH 29.4 (27.0-31.0) pg MCHC 34.0 (33.0-37.0) g/dL RDW 18.0 H (11.5-14.5) % Plt Count 12 L* (130-400) K/uL MPV 10.2 (7.2-11.7) fL Neut % (Auto) 16.0 L (50.0-75.0) % Lymph % (Auto) 43.6 H (20.0-40.0) % Gaston % (Auto) 38.7 H (0.0-10.0) % Eos % (Auto) 1.7 (0.0-4.0) % Baso % (Auto) 0.0 (0.0-2.0) % Neut # (Auto) 0.0 L (1.8-7.0) K/uL Lymph # (Auto) 0.1 L (1.0-4.3) K/uL Gaston # (Auto) 0.0 (0.0-0.8) K/uL Eos # (Auto) 0.0 (0.0-0.7) K/uL Baso # (Auto) 0.0 (0.0-0.2) K/uL Total Counted Cancelled Neutrophils % (Manual) Cancelled Band Neutrophils % Cancelled Lymphocytes % (Manual) Cancelled Reactive Lymphs % Cancelled Monocytes % (Manual) Cancelled Eosinophils % (Manual) Cancelled Basophils % (Manual) Cancelled Metamyelocytes % Cancelled Myelocytes % Cancelled Promyelocytes % Cancelled Blast Cells % Cancelled Plasma Cell % (Manual) Cancelled Nucleated RBC % Cancelled Hypersegmented Polys Cancelled Smudge Cells Cancelled Toxic Granulation Cancelled Dohle Bodies Cancelled Vonda Rods Cancelled Platelet Estimate Cancelled Plt Clumps, EDTA Cancelled Large Platelets Cancelled Giant Platelets Cancelled RBC Morphology Cancelled Polychromasia Cancelled Hypochromasia (manual) Cancelled Poikilocytosis (manual Cancelled Basophilic Stippling Cancelled Anisocytosis (manual) Cancelled Microcytosis (manual) Cancelled Macrocytosis (manual) Cancelled Spherocytes Cancelled Sickle Cells Cancelled Target Cells Cancelled Tear Drop Cells Cancelled Ovalocytes Cancelled Stomatocytes Cancelled Helmet Cells Cancelled [place] Bodies Cancelled Nickerson Cells Cancelled Acanthocytes (Spur) Cancelled Rouleaux Cancelled Schistocytes Cancelled Puncture Site Rbrachial pCO2 41 (35-45) mm/Hg pO2 41 L* (80-100) mm/Hg HCO3 18.9 L (21-28) mmol/L ABG pH 7.27 L (7.35-7.45) ABG Total CO2 20.1 L (22-28) mmol/L ABG O2 Saturation 80.7 L (95-98) % ABG Base Excess -7.5 L (-2.0-3.0) mmol/L ABG Hemoglobin 7.1 L (11.7-17.4) g/dL ABG Carboxyhemoglobin 1.5 (0.5-1.5) % POC ABG HHb (Measured) 18.9 H (0.0-5.0) % ABG Methemoglobin 0.7 (0.0-3.0) % Harpreet Test Neg A-a O2 Difference 621.0 mm/Hg Respiratory Index 15.1 Hgb O2 Saturation 79.0 L (95.0-98.0) % Vent Mode Prvc Mechanical Rate 20 FiO2 100.0 % Tidal Volume 450 PEEP 7 Crit Value Called To Dr. root Crit Value Called By Corrina calix rcp Crit Value Read Back Y Blood Gas Notified Time 654 Sodium 139 (132-148) mmol/L Potassium 4.5 (3.6-5.2) mmol/L Chloride 102 (98-107) mmol/L Carbon Dioxide 24 (22-30) mmol/L Anion Gap 18 (10-20) BUN 113 H* (9-20) mg/dL Creatinine 3.2 H (0.8-1.5) mg/dL Est GFR ( Amer) 24 Est GFR (Non-Af Amer) 20 POC Glucose (mg/dL) (65-110) mg/dL Random Glucose 119 H (75-110) mg/dL Calcium 5.3 L* (8.6-10.4) mg/dl Phosphorus 6.6 H (2.5-4.5) mg/dL Magnesium 2.1 (1.6-2.3) mg/dL Total Bilirubin 3.1 H (0.2-1.3) mg/dL AST 50 (17-59) U/L ALT 29 (21-72) U/L Alkaline Phosphatase 174 H (38-126) U/L Total Creatine Kinase (55-170) U/L Total Protein 5.1 L (6.3-8.3) g/dL Albumin 2.4 L (3.5-5.0) g/dL Globulin 2.7 (2.2-3.9) gm/dL Albumin/Globulin Ratio 0.9 L (1.0-2.1) 09/05/17 09/05/17 Range/Units 23:54 19:01 WBC (4.8-10.8) K/uL RBC (4.40-5.90) Mil/uL Hgb (12.0-18.0) g/dL Hct (35.0-51.0) % MCV (80.0-94.0) fL MCH (27.0-31.0) pg MCHC (33.0-37.0) g/dL RDW (11.5-14.5) % Plt Count (130-400) K/uL MPV (7.2-11.7) fL Neut % (Auto) (50.0-75.0) % Lymph % (Auto) (20.0-40.0) % Gaston % (Auto) (0.0-10.0) % Eos % (Auto) (0.0-4.0) % Baso % (Auto) (0.0-2.0) % Neut # (Auto) (1.8-7.0) K/uL Lymph # (Auto) (1.0-4.3) K/uL Gaston # (Auto) (0.0-0.8) K/uL Eos # (Auto) (0.0-0.7) K/uL Baso # (Auto) (0.0-0.2) K/uL Total Counted Neutrophils % (Manual) Band Neutrophils % Lymphocytes % (Manual) Reactive Lymphs % Monocytes % (Manual) Eosinophils % (Manual) Basophils % (Manual) Metamyelocytes % Myelocytes % Promyelocytes % Blast Cells % Plasma Cell % (Manual) Nucleated RBC % Hypersegmented Polys Smudge Cells Toxic Granulation Dohle Bodies Vonda Rods Platelet Estimate Plt Clumps, EDTA Large Platelets Giant Platelets RBC Morphology Polychromasia Hypochromasia (manual) Poikilocytosis (manual Basophilic Stippling Anisocytosis (manual) Microcytosis (manual) Macrocytosis (manual) Spherocytes Sickle Cells Target Cells Tear Drop Cells Ovalocytes Stomatocytes Helmet Cells [place] Bodies Courtney Cells Acanthocytes (Spur) Rouleaux Schistocytes Puncture Site pCO2 (35-45) mm/Hg pO2 (80-100) mm/Hg HCO3 (21-28) mmol/L ABG pH (7.35-7.45) ABG Total CO2 (22-28) mmol/L ABG O2 Saturation (95-98) % ABG Base Excess (-2.0-3.0) mmol/L ABG Hemoglobin (11.7-17.4) g/dL ABG Carboxyhemoglobin (0.5-1.5) % POC ABG HHb (Measured) (0.0-5.0) % ABG Methemoglobin (0.0-3.0) % Harpreet Test A-a O2 Difference mm/Hg Respiratory Index Hgb O2 Saturation (95.0-98.0) % Vent Mode Mechanical Rate FiO2 % Tidal Volume PEEP Crit Value Called To Crit Value Called By Crit Value Read Back Blood Gas Notified Time Sodium (132-148) mmol/L Potassium (3.6-5.2) mmol/L Chloride (98-107) mmol/L Carbon Dioxide (22-30) mmol/L Anion Gap (10-20) BUN (9-20) mg/dL Creatinine (0.8-1.5) mg/dL Est GFR ( Amer) Est GFR (Non-Af Amer) POC Glucose (mg/dL) 153 H (65-110) mg/dL Random Glucose (75-110) mg/dL Calcium (8.6-10.4) mg/dl Phosphorus (2.5-4.5) mg/dL Magnesium (1.6-2.3) mg/dL Total Bilirubin (0.2-1.3) mg/dL AST (17-59) U/L ALT (21-72) U/L Alkaline Phosphatase (38-126) U/L Total Creatine Kinase 178 H (55-170) U/L Total Protein (6.3-8.3) g/dL Albumin (3.5-5.0) g/dL Globulin (2.2-3.9) gm/dL Albumin/Globulin Ratio (1.0-2.1) Laboratory Results - last 24 hr 09/05/17 09/05/17 09/06/17 19:01 23:54 05:53 WBC 0.1 L* D RBC 2.85 L Hgb 8.4 L Hct 24.6 L MCV 86.4 MCH 29.4 MCHC 34.0 RDW 18.0 H Plt Count 12 L* MPV 10.2 Neut % (Auto) 16.0 L Lymph % (Auto) 43.6 H Gaston % (Auto) 38.7 H Eos % (Auto) 1.7 Baso % (Auto) 0.0 Neut # (Auto) 0.0 L Lymph # (Auto) 0.1 L Gaston # (Auto) 0.0 Eos # (Auto) 0.0 Baso # (Auto) 0.0 Total Counted Cancelled Neutrophils % (Manual) Cancelled Band Neutrophils % Cancelled Lymphocytes % (Manual) Cancelled Reactive Lymphs % Cancelled Monocytes % (Manual) Cancelled Eosinophils % (Manual) Cancelled Basophils % (Manual) Cancelled Metamyelocytes % Cancelled Myelocytes % Cancelled Promyelocytes % Cancelled Blast Cells % Cancelled Plasma Cell % (Manual) Cancelled Nucleated RBC % Cancelled Hypersegmented Polys Cancelled Smudge Cells Cancelled Toxic Granulation Cancelled Dohle Bodies Cancelled Vonda Rods Cancelled Platelet Estimate Cancelled Plt Clumps, EDTA Cancelled Large Platelets Cancelled Giant Platelets Cancelled RBC Morphology Cancelled Polychromasia Cancelled Hypochromasia (manual) Cancelled Poikilocytosis (manual Cancelled Basophilic Stippling Cancelled Anisocytosis (manual) Cancelled Microcytosis (manual) Cancelled Macrocytosis (manual) Cancelled Spherocytes Cancelled Sickle Cells Cancelled Target Cells Cancelled Tear Drop Cells Cancelled Ovalocytes Cancelled Stomatocytes Cancelled Helmet Cells Cancelled [place] Bodies Cancelled Nickerson Cells Cancelled Acanthocytes (Spur) Cancelled Rouleaux Cancelled Schistocytes Cancelled Puncture Site pCO2 pO2 HCO3 ABG pH ABG Total CO2 ABG O2 Saturation ABG Base Excess ABG Hemoglobin ABG Carboxyhemoglobin POC ABG HHb (Measured) ABG Methemoglobin Harpreet Test A-a O2 Difference Respiratory Index Hgb O2 Saturation Vent Mode Mechanical Rate FiO2 Tidal Volume PEEP Crit Value Called To Crit Value Called By Crit Value Read Back Blood Gas Notified Time Sodium Potassium Chloride Carbon Dioxide Anion Gap BUN Creatinine Est GFR ( Amer) Est GFR (Non-Af Amer) POC Glucose (mg/dL) 153 H Random Glucose Calcium Phosphorus Magnesium Total Bilirubin AST ALT Alkaline Phosphatase Total Creatine Kinase 178 H Total Protein Albumin Globulin Albumin/Globulin Ratio 09/06/17 09/06/17 09/06/17 05:54 06:00 06:03 WBC RBC Hgb Hct MCV MCH MCHC RDW Plt Count MPV Neut % (Auto) Lymph % (Auto) Gaston % (Auto) Eos % (Auto) Baso % (Auto) Neut # (Auto) Lymph # (Auto) Gaston # (Auto) Eos # (Auto) Baso # (Auto) Total Counted Neutrophils % (Manual) Band Neutrophils % Lymphocytes % (Manual) Reactive Lymphs % Monocytes % (Manual) Eosinophils % (Manual) Basophils % (Manual) Metamyelocytes % Myelocytes % Promyelocytes % Blast Cells % Plasma Cell % (Manual) Nucleated RBC % Hypersegmented Polys Smudge Cells Toxic Granulation Dohle Bodies Vonda Rods Platelet Estimate Plt Clumps, EDTA Large Platelets Giant Platelets RBC Morphology Polychromasia Hypochromasia (manual) Poikilocytosis (manual Basophilic Stippling Anisocytosis (manual) Microcytosis (manual) Macrocytosis (manual) Spherocytes Sickle Cells Target Cells Tear Drop Cells Ovalocytes Stomatocytes Helmet Cells [place] Bodies Nickerson Cells Acanthocytes (Spur) Rouleaux Schistocytes Puncture Site Rbrachial pCO2 41 pO2 41 L* HCO3 18.9 L ABG pH 7.27 L ABG Total CO2 20.1 L ABG O2 Saturation 80.7 L ABG Base Excess -7.5 L ABG Hemoglobin 7.1 L ABG Carboxyhemoglobin 1.5 POC ABG HHb (Measured) 18.9 H ABG Methemoglobin 0.7 Harpreet Test Neg A-a O2 Difference 621.0 Respiratory Index 15.1 Hgb O2 Saturation 79.0 L Vent Mode Prvc Mechanical Rate 20 FiO2 100.0 Tidal Volume 450 PEEP 7 Crit Value Called To Dr. root Crit Value Called By Corrina calix rcp Crit Value Read Back Y Blood Gas Notified Time 654 Sodium 139 Potassium 4.5 Chloride 102 Carbon Dioxide 24 Anion Gap 18 BUN 113 H* Creatinine 3.2 H Est GFR ( Amer) 24 Est GFR (Non-Af Amer) 20 POC Glucose (mg/dL) 82 Random Glucose 119 H Calcium 5.3 L* Phosphorus 6.6 H Magnesium 2.1 Total Bilirubin 3.1 H AST 50 ALT 29 Alkaline Phosphatase 174 H Total Creatine Kinase Total Protein 5.1 L Albumin 2.4 L Globulin 2.7 Albumin/Globulin Ratio 0.9 L 09/06/17 09/06/17 09/06/17 12:06 17:33 17:35 WBC RBC Hgb Hct MCV MCH MCHC RDW Plt Count MPV Neut % (Auto) Lymph % (Auto) Gaston % (Auto) Eos % (Auto) Baso % (Auto) Neut # (Auto) Lymph # (Auto) Gaston # (Auto) Eos # (Auto) Baso # (Auto) Total Counted Neutrophils % (Manual) Band Neutrophils % Lymphocytes % (Manual) Reactive Lymphs % Monocytes % (Manual) Eosinophils % (Manual) Basophils % (Manual) Metamyelocytes % Myelocytes % Promyelocytes % Blast Cells % Plasma Cell % (Manual) Nucleated RBC % Hypersegmented Polys Smudge Cells Toxic Granulation Dohle Bodies Vonda Rods Platelet Estimate Plt Clumps, EDTA Large Platelets Giant Platelets RBC Morphology Polychromasia Hypochromasia (manual) Poikilocytosis (manual Basophilic Stippling Anisocytosis (manual) Microcytosis (manual) Macrocytosis (manual) Spherocytes Sickle Cells Target Cells Tear Drop Cells Ovalocytes Stomatocytes Helmet Cells [place] Bodies Courtney Cells Acanthocytes (Spur) Rouleaux Schistocytes Puncture Site pCO2 pO2 HCO3 ABG pH ABG Total CO2 ABG O2 Saturation ABG Base Excess ABG Hemoglobin ABG Carboxyhemoglobin POC ABG HHb (Measured) ABG Methemoglobin Harpreet Test A-a O2 Difference Respiratory Index Hgb O2 Saturation Vent Mode Mechanical Rate FiO2 Tidal Volume PEEP Crit Value Called To Crit Value Called By Crit Value Read Back Blood Gas Notified Time Sodium Potassium Chloride Carbon Dioxide Anion Gap BUN Creatinine Est GFR ( Amer) Est GFR (Non-Af Amer) POC Glucose (mg/dL) 84 22 L* < 20 L* Random Glucose Calcium Phosphorus Magnesium Total Bilirubin AST ALT Alkaline Phosphatase Total Creatine Kinase Total Protein Albumin Globulin Albumin/Globulin Ratio 09/06/17 09/06/17 17:53 18:05 WBC RBC Hgb Hct MCV MCH MCHC RDW Plt Count MPV Neut % (Auto) Lymph % (Auto) Gaston % (Auto) Eos % (Auto) Baso % (Auto) Neut # (Auto) Lymph # (Auto) Gaston # (Auto) Eos # (Auto) Baso # (Auto) Total Counted Neutrophils % (Manual) Band Neutrophils % Lymphocytes % (Manual) Reactive Lymphs % Monocytes % (Manual) Eosinophils % (Manual) Basophils % (Manual) Metamyelocytes % Myelocytes % Promyelocytes % Blast Cells % Plasma Cell % (Manual) Nucleated RBC % Hypersegmented Polys Smudge Cells Toxic Granulation Dohle Bodies Vonda Rods Platelet Estimate Plt Clumps, EDTA Large Platelets Giant Platelets RBC Morphology Polychromasia Hypochromasia (manual) Poikilocytosis (manual Basophilic Stippling Anisocytosis (manual) Microcytosis (manual) Macrocytosis (manual) Spherocytes Sickle Cells Target Cells Tear Drop Cells Ovalocytes Stomatocytes Helmet Cells [place] Bodies [place] Cells Acanthocytes (Spur) Rouleaux Schistocytes Puncture Site Rradial pCO2 60 H pO2 36 L* HCO3 8.2 L* ABG pH 6.95 L* ABG Total CO2 15.0 L ABG O2 Saturation 57.3 L ABG Base Excess -19.3 L ABG Hemoglobin ABG Carboxyhemoglobin POC ABG HHb (Measured) ABG Methemoglobin Harpreet Test Na A-a O2 Difference 602.0 Respiratory Index 16.7 Hgb O2 Saturation Vent Mode Prvc Mechanical Rate 20 FiO2 100.0 Tidal Volume 450 PEEP 7 Crit Value Called To Dr. root Crit Value Called By Corrina montoya rcp Crit Value Read Back Y Blood Gas Notified Time 181 Sodium Potassium Chloride Carbon Dioxide Anion Gap BUN Creatinine Est GFR ( Amer) Est GFR (Non-Af Amer) POC Glucose (mg/dL) 195 H Random Glucose Calcium Phosphorus Magnesium Total Bilirubin AST ALT Alkaline Phosphatase Total Creatine Kinase Total Protein Albumin Globulin Albumin/Globulin Ratio Fingerstick Blood Sugar Results: 84
[2017-09-06 18:38] VITALS: PULSE 140; O2SAT 50
[2017-09-06 18:50] VITALS: BP 0/0
--- NOTE | 2017-09-07 07:31 | CP.PCM.PN ---
Subjective - Date & Time of Evaluation Date of Evaluation: 09/06/17 Time of Evaluation: 14:00 - Subjective Subjective: Patient become severely hypoxic. Severe acidosis. Spoke to the family. Family agreed for DNR. Patient become severely bradycardic and becoming asystolic@6:49 PM. Patient pronounced . Family at bedside. Objective - Vital Signs/Intake and Output Vital Signs (last 24 hours): Temp Pulse Resp BP Pulse Ox 98.7 F 140 H 30 H 0/0 L 50 L 09/06/17 16:00 09/06/17 18:33 09/06/17 18:45 09/06/17 18:33 09/06/17 18:33 - Labs Labs: 09/06/17 05:53 09/06/17 05:54 PT 15.5 SECONDS (9.7-12.2) H 09/02/17 16:39 INR 1.4 09/02/17 16:39 APTT 36 SECONDS (21-34) H D 08/31/17 14:07
== END 2017-09-06 21:44 | DRG 477 ==
LOC: C.ER 07:15 → C.9E 08:39 → C.5S 10:32 → C.3T 11:40 → C.5S 08-24 11:04 → C.9I 08-27 10:42
PROVIDERS: ADMIT Internal Medicine Nephrology; ATTEND Internal Medicine Nephrology
PROC: 0BH18EZ Insertion of Endotracheal Airway into Trachea, Via Natural or Artificial Opening Endoscopic (ICD-10-PCS; 2017-08-27)
PROC: 5A1955Z Respiratory Ventilation, Greater than 96 Consecutive Hours (ICD-10-PCS; 2017-08-27)
PROC: 02HV33Z Insertion of Infusion Device into Superior Vena Cava, Percutaneous Approach (ICD-10-PCS; 2017-08-27)
PROC: 30233N1 Transfusion of Nonautologous Red Blood Cells into Peripheral Vein, Percutaneous Approach (ICD-10-PCS; principal; 2017-08-29)
PROC: 02HV33Z Insertion of Infusion Device into Superior Vena Cava, Percutaneous Approach (ICD-10-PCS; 2017-09-01)
PROC: 5A1D70Z Performance of Urinary Filtration, Intermittent, Less than 6 Hours Per Day (ICD-10-PCS; 2017-09-01)
PROC: 0B9J8ZX Drainage of Left Lower Lung Lobe, Via Natural or Artificial Opening Endoscopic, Diagnostic (ICD-10-PCS; 2017-09-02)
PROC: 0BDB8ZX Extraction of Left Lower Lobe Bronchus, Via Natural or Artificial Opening Endoscopic, Diagnostic (ICD-10-PCS; 2017-09-02)
DX: D61.818 Other pancytopenia (principal); A41.9 Sepsis, unspecified organism; R65.21 Severe sepsis with septic shock; N17.0 Acute kidney failure with tubular necrosis; J96.01 Acute respiratory failure with hypoxia; I50.22 Chronic systolic (congestive) heart failure; K72.00 Acute and subacute hepatic failure without coma; B37.81 Candidal esophagitis; J18.9 Pneumonia, unspecified organism; N18.6 End stage renal disease; C78.00 Secondary malignant neoplasm of unspecified lung; C79.51 Secondary malignant neoplasm of bone; C79.52 Secondary malignant neoplasm of bone marrow; E87.1 Hypo-osmolality and hyponatremia; E87.2 Acidosis; C61 Malignant neoplasm of prostate; Z51.5 Encounter for palliative care; Z66 Do not resuscitate; E83.51 Hypocalcemia; D63.8 Anemia in other chronic diseases classified elsewhere; Z99.2 Dependence on renal dialysis